=== PATIENT | female | born 1955 | race Hispanic/Latino ===

== ENCOUNTER → 2019-08-04 | Day surgery (SDC) | payer MEDICARE, OTHER ==
[2019-07-31 10:41] LABS: INR 1.26; PROTHROMBIN TIME 16.6 seconds (11.9-14.5)
[~2019-08-04] MED LIST: DEXTROSE 5% 250ML 250 ML IV ONE; FENTANYL CITRATE/PF 100MCG/2 ML INJ ONE; FUROSEMIDE40 MG PO; GLIPIZIDE5 MG PO; HYDROMORPHONE 1MG/1ML INJ ONE; HYDROMORPHONE 2MG/ML 2 MG/ML ML ONE; LACTULOSE20 GM/30 M PO; LANTUS 3ML100 UNITS/ SQ; LEVOTHYROXINE50 MCG PO; LIDOCAINE HCL 2% LOCAL INJ 5 ML SDV VIAL INJ ONE; PANTOPRAZOLE 40 MG 10ML VIAL ONE; PROPOFOL IV EMULSION 10 MG/ML 20 ML VIAL ONE; SPIRONOLACTONE25 MG PO
--- OUTSIDE RECORDS SUMMARY | 2019-08-04 10:31 | XMS REPORT ---
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
--- OUTSIDE RECORDS SUMMARY | 2019-08-04 10:31 | XMS REPORT ---
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
--- OUTSIDE RECORDS SUMMARY | 2019-08-04 10:31 | XMS REPORT | Continuity of Care Document ---
Author Author [facility] [employer] [employer], SUZI REYNOLDS [facility] [employer] [employer] Address Unknown Phone Unavailable Care Team Providers Care Senior Linux Systems Administrator Name Role Phone [employer] [employer] Unavailable Un available Problems Problem Status Onset Date Classification Date Reported Comments Source Acquired hypothyroidism Active Problem 07/23/2019 [facility] Menopausal and postmenopausal disorder Active Problem [facility] Type 2 diabetes mellitus with other diab etic ophthalmic complication Active Prob alen 07/23/2019 [facility] Essential hypertension Active Problem 07/23/2019 [facility] Other ascites Active Problem 07/23/2019 [facility] alf (current) use of insulin Active Problem [facility] Unspecified cirrhosis of liver Active Problem [facility] Age-related osteoporosis without current pathological fracture Active Prob alen 07/23/2019 [facility] Medications Medication Details Route Status Patient Instructions Ordering Provider Order Date Source Spironolactone 1 tablet Orally Active 100 MG Orally Once a da y Ghebranious 08/20/2019 [facility] GlipiZIDE 1 tablet 30 minutes before breakfast Orally Active 10 MG Orally Once a day Ghebranious [facility] Allergies, Adverse Reactions, Alerts No Known Medication Allergies Immunizations No Data Provided for This Section Results No Data Provided for This Section Pathology Reports No Data Provided for This Section Diagnostic Reports No Data Provided for This Section Consultation Notes No Data Provided for This Section Discharge Summaries No Data Provided for This Section History and Physicals No Data Provided for This Section Vital Signs No Data Provided for This Section Encounters No Data Provided for This Section Procedures No Data Provided for This Section Assessment and Plan No Data Provided for This Section Plan of Care No Data Provided for This Section Social History No Data Provided for This Section Family History No Data Provided for This Section Advance Directives No Data Provided for This Section Functional Status No Data Provided for This Section
[2019-08-04 12:33] LABS: BASOPHILS % 0.6 % (0.0-1.0); EOSINOPHILS # (AUTO) 0.1 (0.0-0.4); EOSINOPHILS % 1.9 % (0.0-6.0); HEMATOCRIT 37.1 % (34.2-44.1); LYMPHOCYTES # (AUTO) 0.7 (1.0-3.2); LYMPHOCYTES % 13.9 % (18.0-39.1); MEAN CORPUSCULAR HEMOGLOBIN 30.9 pg (28-32); MEAN CORPUSCULAR HGB CONC 32.3 g/dL (31-35); MEAN CORPUSCULAR VOLUME 95.6 fL (81-99); MONOCYTES # (AUTO) 0.7 (0.2-0.8); MONOCYTES % 13.9 % (4.4-11.3); NEUTROPHILS # (AUTO) 3.4 (2.1-6.9); NEUTROPHILS % 69.3 % (38.7-80.0); PLATELET COUNT 85 x10e3/uL (140-360); RED BLOOD COUNT 3.88 x10e6/uL (3.6-5.1); RED CELL DISTRIBUTION WIDTH 15.3 % (11.7-14.4)
--- NOTE | 2019-08-04 13:18 | Operative Report ---
DATE OF PROCEDURE: 08/04/2019 SURGEON: Lenin Lowe MD PROCEDURE: An EGD with banding. INDICATIONS FOR EGD: 1. Upper abdominal pain, bloating. 2. History of esophageal varices. MEDICATIONS: The patient was done under MAC. Please see anesthesiologist's note. PROCEDURE IN DETAIL: With the patient in the left lateral decubitus position, a flexible fiberoptic Olympus gastroscope was introduced into the esophagus under direct visualization without any difficulty. Grade 2 to 3 esophageal varices were noted in the distal esophagus and some with red andreafski. The scope was then advanced with ease into the stomach. Mucosa overlying the antrum and the body revealed changes of diffuse portal hypertensive gastropathy. The pylorus was of normal contour and shape. It was intubated with ease and the scope was advanced all the way to the second portion of the duodenum. The scope was then withdrawn slowly. Mucosa overlying the proximal second portion and the duodenal bulb appeared to be within normal limits. The scope was then withdrawn back into the stomach and retroflexed. Mucosa overlying the fundus and the cardia grossly appeared to be within normal limits. The scope was then straightened out. It was subsequently withdrawn. The scope was then fitted for banding and hemorrhoids reintroduced into the esophagus. Five bands were applied to 3 columns of varices. The scope was subsequently withdrawn. The patient tolerated procedure well. IMPRESSION: 1. Grade 2 to 3 esophageal varices, some with red andreafski. Five bands were applied to 3 columns of varices with good hemostasis. 2. Portal hypertensive gastropathy. PLAN: Follow up H and H. Initiate Protonix 40 mg one p.o. q.a.m. a.c. Lenin Lowe MD [facility] [place]/MODL /[id number] cc: Cady Pierre MD
[2019-08-04 15:10] VITALS: BP 143/73
[2019-08-04 20:36] LABS: BODY FLUID APPEARANCE SL.CLOUDY; BODY FLUID COLOR YELLOW; BODY FLUID TYPE PERITONEAL
[2019-08-04 20:37] LABS: RBC,BODY FLUID 293 cells/uL; WBC,BODY FLUID 136 cells/uL
[2019-08-04 21:27] LABS: LYMPHOCYTES,BODY FLUID 48 %; MONO/MACROPHG,BODY FLUID 33 %; NEUTROPHILS,BODY FLUID 8 %; OTHER CELLS,BODY FLUID 11 %
--- NOTE | 2019-08-05 09:37 | Diagnostic Imaging Report ---
TECHNIQUE: CT of the abdomen and pelvis WITHOUT intravenous contrast and WITHOUT oral contrast. Dose modulation, iterative reconstruction, and/or weight-based adjustment of the mA/kV was utilized to reduce the radiation dose to as low as reasonably achievable. INDICATION: 64-year-old woman with abdominal pain after EGD. COMPARISON: None. FINDINGS: ABSENCE OF INTRAVENOUS CONTRAST DECREASES SENSITIVITY FOR DETECTION OF FOCAL LESIONS AND VASCULAR PATHOLOGY. LOWER THORAX: Mild dependent atelectasis in both lower lobes. Atherosclerotic coronary artery calcifications. HEPATOBILIARY: Cirrhotic morphology of the liver. No definite focal hepatic lesions. Cholelithiasis with nonspecific distention of the gallbladder up to 4.6 cm in transverse dimension. No biliary ductal dilatation. SPLEEN: Spleen is prominent and measures 13.2 cm in the craniocaudal dimension. PANCREAS: No focal masses or ductal dilatation. ADRENALS: No adrenal nodules. KIDNEYS/URETERS: No hydronephrosis, stones, or solid mass lesions. PELVIC ORGANS/BLADDER: 2 x 3.2 cm soft tissue structure in the left adnexum abuts the left uterine body. Bladder is unremarkable. PERITONEUM/RETROPERITONEUM: Large volume ascites. No free air. LYMPH NODES: No lymphadenopathy. VESSELS: Atherosclerotic vascular calcifications in the abdominal aorta and bilateral iliac arteries without aneurysm. GI TRACT: Apparent mildly thickened wall of the stomach. No bowel obstruction. Normal appendix. BONES AND SOFT TISSUES: Mild degenerative changes of the visualized spine. Periumbilical ventral hernia contains a nonstrangulated loop of small bowel and ascitic fluid. Large left inguinal hernia contains ascitic fluid. IMPRESSION: Cirrhosis with portal hypertension and large volume ascites. Apparent mildly thickened wall of the stomach may be due to underdistention, portal gastropathy, or gastritis. This finding may be correlated with the recently performed EGD. Cholelithiasis with nonspecific distention of the gallbladder. 3.2 cm soft tissue structure in the left adnexum. Differential considerations include subserosal uterine fibroid and asymmetrically prominent left ovary. Nonemergent pelvis ultrasound may be obtained for further evaluation. Signed by: Berry Epstein MD on 08/05/2019 9:32 AM
--- NOTE | 2019-08-05 10:59 | Diagnostic Imaging Report ---
Procedure: Ultrasound-guided paracentesis teasel gig operator: Nelson Saucedo MD Pre-operative diagnosis: Ascites Post-operative diagnosis: Ascites Conscious Sedation: None. The patient's heart rate and pulse oximetry were continuously monitored by the IR nurse. Additional Medications: Lidocaine 1% for local anesthesia Estimated blood loss: Less than 1 cc. Specimen: 5400 cc of material yellow fluid Implants: None TECHNIQUE/FINDINGS: Informed consent was obtained from the patient and documented in the medical record. The patient was placed in the supine position. Initial ultrasound demonstrated ascites. The right lower abdomen was prepped and draped in standard sterile fashion. 1% lidocaine was infiltrated into the skin and subcutaneous tissues for local anesthesia. Then under continuous sonographic guidance, a 5 Fr catheter was advanced into the peritoneal space. The catheter was connected to vacuum bottle with subsequent evacuation of 5400 cc of serous fluid. The catheter was removed and sterile dressing was applied. Sample was sent to the lab. The patient tolerated the procedure well. IMPRESSION: Successful ultrasound-guided paracentesis. Signed by: Deven Grande MD on 08/05/2019 10:55 AM
== END | disposition home or self-care (01) ==
LOC: OR 10:28
PROVIDERS: ATTEND Internal Medicine Gastroenterology
DX: K74.60 Unspecified cirrhosis of liver (principal); I85.10 Secondary esophageal varices without bleeding; K21.0 Gastro-esophageal reflux disease with esophagitis; R18.8 Other ascites; K76.6 Portal hypertension; K31.89 Other diseases of stomach and duodenum; B18.2 Chronic viral hepatitis C; K40.90 Unilateral inguinal hernia, without obstruction or gangrene, not specified as recurrent; E11.9 Type 2 diabetes mellitus without complications; E03.9 Hypothyroidism, unspecified; R03.0 Elevated blood-pressure reading, without diagnosis of hypertension; F17.210 Nicotine dependence, cigarettes, uncomplicated; Z01.810 Encounter for preprocedural cardiovascular examination; Z01.812 Encounter for preprocedural laboratory examination; Z11.59 Encounter for screening for other viral diseases; Z79.84 Long term (current) use of oral hypoglycemic drugs; Z79.4 Long term (current) use of insulin
CPT/HCPCS: 36415 ×2; 43244; 49083; 74176; 74470; 82948; 85025; 85610; 85730; 87070; 87205; 87635; 88112; 88305; 89051; 93005; C1729; C9113; J1170 ×2; J2001; J2704; J3010; J7070; 43239

== ENCOUNTER → 2019-08-13 | Outpatient (CLI) | payer MEDICARE ==
[~2019-08-13] MED LIST changes: -DEXTROSE 5% 250ML 250 ML IV ONE; -FENTANYL CITRATE/PF 100MCG/2 ML INJ ONE; -HYDROMORPHONE 1MG/1ML INJ ONE; -HYDROMORPHONE 2MG/ML 2 MG/ML ML ONE; -LIDOCAINE HCL 2% LOCAL INJ 5 ML SDV VIAL INJ ONE; -PANTOPRAZOLE 40 MG 10ML VIAL ONE; -PROPOFOL IV EMULSION 10 MG/ML 20 ML VIAL ONE
--- NOTE | 2019-08-13 10:57 | Diagnostic Imaging Report ---
Ultrasound female pelvis Clinical diagnosis: Left adnexal mass suspected on a recent abdominal CT. Last menstrual period: Not applicable. The patient is postmenopausal. The patient is a 0. The patient is not on normal replacement therapy. There is no history of prior pelvic surgery. Comparison: CT dated 08/04/2019. Technique: Multiple transaxial and longitudinal images were obtained through the pelvis. Low MHz transducer(s) was(were) utilized transabdominally and endovaginally. Color Doppler and spectral waveform analysis images were submitted to evaluate for blood flow. Multiple images were submitted for interpretation. Report: Uterus: 4.4 x 2.3 x 3.6 cm with heterogeneous echotexture and calcifications suggestive of degenerated fibroids. Right Ovary: Not visualized Left Ovary: Not visualized Free Fluid: Large volume ascites. The left adnexal mass as seen on CT is not visualized on this exam. Impression: Limited exam due to presence of large volume ascites and free floating loops of bowel. The left adnexal mass as seen on the CT is not visualized on this exam. If there is a persistent concern, MRI of the pelvis may be performed. Signed by: Santiago Diez MD on 08/13/2019 10:54 AM
== END ==
LOC: US 09:43
PROVIDERS: ATTEND Internal Medicine Gastroenterology
DX: R93.89 Abnormal findings on diagnostic imaging of other specified body structures (principal)
CPT/HCPCS: 76830; 76856

== ENCOUNTER → 2019-09-01 | Outpatient (CLI) | payer MEDICARE ==
[2019-09-01 14:31] LABS: PARTIAL THROMBOPLASTIN TIME 33.4 seconds (23.8-35.5)
[2019-09-01 14:50] LABS: INR 1.1; PROTHROMBIN TIME 14.9 seconds (11.9-14.5)
--- NOTE | 2019-09-01 15:55 | Diagnostic Imaging Report ---
Procedure: Ultrasound-guided paracentesis brick setter operator: Tripp Goldman M.D. Pre-operative diagnosis: Ascites Post-operative diagnosis: Ascites Conscious Sedation: None. The patient's heart rate and pulse oximetry were continuously monitored by the IR nurse. Additional Medications: Lidocaine 1% for local anesthesia Estimated blood loss: Less than 1 cc. Specimen: 4600 cc of clear yellow fluid Implants: None TECHNIQUE/FINDINGS: Informed consent was obtained from the patient and documented in the medical record. The patient was placed in the supine position. Initial ultrasound demonstrated ascites. The right lower abdomen was prepped and draped in standard sterile fashion. 1% lidocaine was infiltrated into the skin and subcutaneous tissues for local anesthesia. Then under continuous sonographic guidance, a 5 Fr catheter was advanced into the peritoneal space. The catheter was connected to vacuum bottle with subsequent evacuation of 4600 cc of serous fluid. The catheter was removed and sterile dressing was applied. Sample was sent to the lab. The patient tolerated the procedure well. IMPRESSION: Successful ultrasound-guided paracentesis. Signed by: Tripp Goldman on 09/01/2019 3:51 PM
[2019-09-01 16:29] LABS: BODY FLUID TYPE PERITONEAL
[2019-09-01 16:30] LABS: BODY FLUID APPEARANCE CLOUDY; BODY FLUID COLOR YELLOW
[2019-09-01 17:21] LABS: AMYLASE,BODY FLUID 15
[2019-09-01 17:22] LABS: GLUCOSE,BODY FLUID 178 mg/dL
[2019-09-01 18:49] LABS: RBC,BODY FLUID 174 cells/uL; WBC,BODY FLUID 22 cells/uL
[2019-09-01 20:38] LABS: LYMPHOCYTES,BODY FLUID 26 %; MONO/MACROPHG,BODY FLUID 32 %; NEUTROPHILS,BODY FLUID 12 %; OTHER CELLS,BODY FLUID 30 %
== END ==
LOC: US 13:46
PROVIDERS: ATTEND Internal Medicine Gastroenterology
DX: K72.90 Hepatic failure, unspecified without coma (principal); R18.8 Other ascites; B18.2 Chronic viral hepatitis C
CPT/HCPCS: 36415; 49083; 82040; 82150; 82248; 82945; 83615; 83690; 83986; 84157; 84478; 85014; 85049; 85610; 85730; 87070; 87116; 87205; 87206; 88112; 88305; 89051; C1729

== ENCOUNTER → 2019-09-16 | Outpatient (CLI) | payer OTHER ==
[~2019-09-16] MED LIST changes: +ALBUMIN 25% 12.5GM 50ML 200 ML IV ONE
--- NOTE | 2019-09-16 12:55 | Diagnostic Imaging Report ---
Procedure: Ultrasound-guided paracentesis furnace charging machine operator: Nelson Saucedo MD Pre-operative diagnosis: Ascites Post-operative diagnosis: Ascites Conscious Sedation: None. The patient's heart rate and pulse oximetry were continuously monitored by the IR nurse. Additional Medications: Lidocaine 1% for local anesthesia Estimated blood loss: Less than 1 cc. Specimen: 3950 cc of clear yellow fluid Implants: None TECHNIQUE/FINDINGS: Informed consent was obtained from the patient and documented in the medical record. The patient was placed in the supine position. Initial ultrasound demonstrated ascites. The right lower abdomen was prepped and draped in standard sterile fashion. 1% lidocaine was infiltrated into the skin and subcutaneous tissues for local anesthesia. Then under continuous sonographic guidance, a 5 Fr catheter was advanced into the peritoneal space. The catheter was connected to vacuum bottle with subsequent evacuation of 3950 cc of serous fluid. The catheter was removed and sterile dressing was applied. The patient tolerated the procedure well. IMPRESSION: Successful ultrasound-guided paracentesis. Signed by: Dr. Nelson Saucedo MD on 09/16/2019 12:51 PM
[2019-09-16 15:47] LABS: BODY FLUID APPEARANCE CLOUDY; BODY FLUID COLOR YELLOW; BODY FLUID TYPE PERITONEAL
[2019-09-16 18:45] LABS: RBC,BODY FLUID 158 cells/uL; WBC,BODY FLUID 13 cells/uL
[2019-09-16 19:12] LABS: LYMPHOCYTES,BODY FLUID 45 %; MONO/MACROPHG,BODY FLUID 45 %; NEUTROPHILS,BODY FLUID 10 %
== END ==
LOC: US 11:45
PROVIDERS: ATTEND Legal Medicine
DX: R18.8 Other ascites (principal); K74.60 Unspecified cirrhosis of liver
CPT/HCPCS: 36415; 49083; 88112; 88305; 89051; C1729

== ENCOUNTER → 2019-09-30 | Outpatient (CLI) | payer OTHER ==
--- NOTE | 2019-09-30 15:31 | Diagnostic Imaging Report ---
PROCEDURE: Ultrasound-guided paracentesis Procedural Personnel Attending physician(s): Deven Grande MD Pre-procedure diagnosis: Ascites Post-procedure diagnosis: Unchanged Indication: Ascites with pain or pressure symptoms Additional clinical history: None Complications: No immediate complications. IMPRESSION: Ultrasound-guided paracentesis with drainage of 5850 mL of serous fluid. Plan: Resume care by clinical team. PROCEDURE SUMMARY: - Limited abdominal ultrasound - Ultrasound-guided paracentesis - Additional procedure(s): None PROCEDURE DETAILS: Pre-procedure Consent: Informed consent for the procedure including risks, benefits and alternatives was obtained and time-out was performed prior to the procedure. Preparation: The site was prepared and draped using maximal sterile barrier technique including cutaneous antisepsis. Anesthesia/sedation Level of anesthesia/sedation: None Initial abdominal ultrasound Initial abdominal ultrasound was performed. Findings: Large ascites. A safe window for paracentesis was identified. Paracentesis Local anesthesia was administered. The peritoneal cavity was accessed and fluid return confirmed position. Ascites was drained. The catheter was then removed, and a sterile bandage was applied. Paracentesis access technique: Real-time ultrasound guidance. Catheter placed: 5Fr Yueh Post-drainage ultrasound: No visible ascites Additional Details Additional description of procedure: None Equipment details: None Specimens removed: Abdominal fluid Estimated blood loss (mL): Minimal (<10cc) Standardized report: [email or web address] Attestation Signer name: Deven Grande MD I attest that I was present for the entire procedure. I reviewed the stored images and agree with the report as written. Signed by: Deven Grande MD on 09/30/2019 3:28 PM
[2019-09-30 16:29] LABS: BODY FLUID APPEARANCE CLEAR; BODY FLUID COLOR YELLOW; BODY FLUID TYPE PERITONEAL; RBC,BODY FLUID 232 cells/uL; WBC,BODY FLUID 144 cells/uL
[2019-09-30 16:39] LABS: LYMPHOCYTES,BODY FLUID 51 %; MONO/MACROPHG,BODY FLUID 15 %; NEUTROPHILS,BODY FLUID 4 %; OTHER CELLS,BODY FLUID 30 %
== END ==
LOC: US 12:58
PROVIDERS: ATTEND Legal Medicine
DX: R18.8 Other ascites (principal)
CPT/HCPCS: 36415; 49083; 88112; 88305; 89051

== ENCOUNTER → 2019-10-19 | Outpatient (CLI) | payer MEDICARE, OTHER ==
[2019-10-19 13:24] LABS: HEMATOCRIT 33.4 % (34.2-44.1); HEMOGLOBIN 10.7 g/dL (12.0-16.0); MEAN CORPUSCULAR HEMOGLOBIN 32.1 pg (28-32); MEAN CORPUSCULAR VOLUME 100.3 fL (81-99); RED BLOOD COUNT 3.33 x10e6/uL (3.6-5.1); RED CELL DISTRIBUTION WIDTH 15.5 % (11.7-14.4)
[2019-10-19 13:30] LABS: PLATELET COUNT 87 x10e3/uL (140-360)
[2019-10-19 13:57] LABS: INR 1.32; PROTHROMBIN TIME 17.1 seconds (11.9-14.5)
[2019-10-19 13:58] LABS: PARTIAL THROMBOPLASTIN TIME 37.1 seconds (23.8-35.5)
[2019-10-19 14:16] LABS: HYPOCHROMASIA SLIG; LYMPHOCYTES % (MANUAL) 19 % (19-48); MONOCYTES % (MANUAL) 5 % (3.4-9.0); NEUTROPHILS % (MANUAL) 76 % (40-74); POLYCHROMASIA FEW
[2019-10-19 14:17] LABS: PLATELET ESTIMATE MODERATELY DECREASED; PLATELET MORPHOLOGY COMMENT FEW LARGE; RBC MORPHOLOGY COMMENT NORMAL
--- NOTE | 2019-10-19 15:11 | Diagnostic Imaging Report ---
PROCEDURE: Ultrasound-guided paracentesis Procedural Personnel Attending physician(s): Deven Grande MD Pre-procedure diagnosis: Ascites Post-procedure diagnosis: Unchanged Indication: Ascites with pain or pressure symptoms Additional clinical history: None Complications: No immediate complications. IMPRESSION: Ultrasound-guided paracentesis with drainage of 5050 mL of serous fluid. Plan: Resume care by clinical team. PROCEDURE SUMMARY: - Limited abdominal ultrasound - Ultrasound-guided paracentesis - Additional procedure(s): None PROCEDURE DETAILS: Pre-procedure Consent: Informed consent for the procedure including risks, benefits and alternatives was obtained and time-out was performed prior to the procedure. Preparation: The site was prepared and draped using maximal sterile barrier technique including cutaneous antisepsis. Anesthesia/sedation Level of anesthesia/sedation: None Initial abdominal ultrasound Initial abdominal ultrasound was performed. Findings: Large ascites. A safe window for paracentesis was identified. Paracentesis Local anesthesia was administered. The peritoneal cavity was accessed and fluid return confirmed position. Ascites was drained. The catheter was then removed, and a sterile bandage was applied. Paracentesis access technique: Real-time ultrasound guidance. Catheter placed: 5Fr Yueh Post-drainage ultrasound: No visible ascites Additional Details Additional description of procedure: None Equipment details: None Specimens removed: Abdominal fluid Estimated blood loss (mL): Minimal (<10cc) Standardized report: [email or web address] Attestation Signer name: Deven Grande MD I attest that I was present for the entire procedure. I reviewed the stored images and agree with the report as written. Signed by: Deven Grande MD on 10/19/2019 3:08 PM
[2019-10-19 16:04] LABS: BODY FLUID APPEARANCE SL.CLOUDY; BODY FLUID COLOR YELLOW; BODY FLUID TYPE PERITONEAL
[2019-10-19 16:48] LABS: RBC,BODY FLUID 56 cells/uL; WBC,BODY FLUID 24 cells/uL
[2019-10-19 18:27] LABS: LYMPHOCYTES,BODY FLUID 66 %; MONO/MACROPHG,BODY FLUID 26 %; NEUTROPHILS,BODY FLUID 8 %
== END ==
LOC: US 12:45
PROVIDERS: ATTEND Legal Medicine
DX: R18.8 Other ascites (principal)
CPT/HCPCS: 36415; 49083; 85007; 85027; 85610; 85730; 88112; 88305; 89051

== ENCOUNTER → 2019-10-26 | Outpatient (CLI) | payer OTHER ==
--- NOTE | 2019-10-26 14:06 | Diagnostic Imaging Report ---
PROCEDURE: Ultrasound-guided paracentesis Procedural Personnel Attending physician(s): Deven Grande MD Pre-procedure diagnosis: Ascites Post-procedure diagnosis: Unchanged Indication: Ascites with pain or pressure symptoms Additional clinical history: None Complications: No immediate complications. IMPRESSION: Ultrasound-guided paracentesis with drainage of 5300 mL of serous fluid. Plan: Resume care by clinical team. PROCEDURE SUMMARY: - Limited abdominal ultrasound - Ultrasound-guided paracentesis - Additional procedure(s): None PROCEDURE DETAILS: Pre-procedure Consent: Informed consent for the procedure including risks, benefits and alternatives was obtained and time-out was performed prior to the procedure. Preparation: The site was prepared and draped using maximal sterile barrier technique including cutaneous antisepsis. Anesthesia/sedation Level of anesthesia/sedation: None Initial abdominal ultrasound Initial abdominal ultrasound was performed. Findings: Large ascites. A safe window for paracentesis was identified. Paracentesis Local anesthesia was administered. The peritoneal cavity was accessed and fluid return confirmed position. Ascites was drained. The catheter was then removed, and a sterile bandage was applied. Paracentesis access technique: Real-time ultrasound guidance. Catheter placed: 5Fr Yueh Post-drainage ultrasound: No visible ascites Additional Details Additional description of procedure: None Equipment details: None Specimens removed: Abdominal fluid Estimated blood loss (mL): Minimal (<10cc) Standardized report: [email or web address] Attestation Signer name: Deven Gradne MD I attest that I was present for the entire procedure. I reviewed the stored images and agree with the report as written. Signed by: Deven Grande MD on 10/26/2019 2:03 PM
[2019-10-26 14:56] LABS: BODY FLUID APPEARANCE SL.CLOUDY; BODY FLUID COLOR STRAW; BODY FLUID TYPE PERITONEAL
[2019-10-26 16:05] LABS: RBC,BODY FLUID 90 cells/uL; WBC,BODY FLUID 14 cells/uL
[2019-10-26 16:37] LABS: LYMPHOCYTES,BODY FLUID 11 %; MONO/MACROPHG,BODY FLUID 80 %; NEUTROPHILS,BODY FLUID 5 %; OTHER CELLS,BODY FLUID 4 %
== END ==
LOC: US 12:30
PROVIDERS: ATTEND Legal Medicine
DX: R18.8 Other ascites (principal)
CPT/HCPCS: 36415; 49083; 88112; 89051

== ENCOUNTER → 2019-11-02 | Outpatient (CLI) | payer OTHER ==
[2019-11-02 15:16] LABS: BODY FLUID APPEARANCE TURBID; BODY FLUID COLOR YELLOW; BODY FLUID TYPE PERITONEAL; RBC,BODY FLUID 252 cells/uL; WBC,BODY FLUID 317 cells/uL
[2019-11-02 15:41] LABS: EOSINOPHILS,BODY FLUID 2 %; LYMPHOCYTES,BODY FLUID 4 %; MONO/MACROPHG,BODY FLUID 28 %; NEUTROPHILS,BODY FLUID 66 %
--- NOTE | 2019-11-02 16:03 | Diagnostic Imaging Report ---
PROCEDURE: Ultrasound-guided paracentesis Procedural Personnel Attending physician(s): Deven Grande MD Pre-procedure diagnosis: Ascites Post-procedure diagnosis: Unchanged Indication: Ascites with pain or pressure symptoms Additional clinical history: None Complications: No immediate complications. IMPRESSION: Ultrasound-guided paracentesis with drainage of 3300 mL of serous fluid. Plan: Resume care by clinical team. PROCEDURE SUMMARY: - Limited abdominal ultrasound - Ultrasound-guided paracentesis - Additional procedure(s): None PROCEDURE DETAILS: Pre-procedure Consent: Informed consent for the procedure including risks, benefits and alternatives was obtained and time-out was performed prior to the procedure. Preparation: The site was prepared and draped using maximal sterile barrier technique including cutaneous antisepsis. Anesthesia/sedation Level of anesthesia/sedation: None Initial abdominal ultrasound Initial abdominal ultrasound was performed. Findings: Large ascites. A safe window for paracentesis was identified. Paracentesis Local anesthesia was administered. The peritoneal cavity was accessed and fluid return confirmed position. Ascites was drained. The catheter was then removed, and a sterile bandage was applied. Paracentesis access technique: Real-time ultrasound guidance. Catheter placed: 5Fr Yueh Post-drainage ultrasound: No visible ascites Additional Details Additional description of procedure: None Equipment details: None Specimens removed: Abdominal fluid Estimated blood loss (mL): Minimal (<10cc) Standardized report: [email or web address] Attestation Signer name: Deven Grande MD I attest that I was present for the entire procedure. I reviewed the stored images and agree with the report as written. Signed by: Deven Grande MD on 11/02/2019 3:59 PM
== END ==
LOC: US 12:38
PROVIDERS: ATTEND Legal Medicine
DX: R18.8 Other ascites (principal)
CPT/HCPCS: 36415; 49083; 89051

== ENCOUNTER → 2019-11-09 | Outpatient (CLI) | payer OTHER ==
--- NOTE | 2019-11-09 14:53 | Diagnostic Imaging Report ---
Abdominal Ultrasound limited. Clinical Diagnosis: Ascites Comparison: None Technique: Multiple transaxial and longitudinal images were obtained through the abdomen with real time ultrasonography. A low-frequency curvilinear transducer was utilized. Multiple images were submitted for interpretation. Report: Please see impression. Impression: Sonographic evaluation different quadrants of the abdomen revealed a scant amount of ascites. Paracentesis was therefore not performed on patient's request. Signed by: Santiago Diez MD on 11/09/2019 2:50 PM
== END ==
LOC: US 12:12
PROVIDERS: ATTEND Legal Medicine
DX: R18.8 Other ascites (principal)
CPT/HCPCS: 76705

== ENCOUNTER → 2019-11-16 | Outpatient (CLI) | payer OTHER ==
[~2019-11-16] MED LIST changes: +ALBUMIN 25% 12.5GM 50ML 100 ML IV ONE; -ALBUMIN 25% 12.5GM 50ML 200 ML IV ONE
--- NOTE | 2019-11-16 14:31 | Diagnostic Imaging Report ---
HISTORY : Symptomatic ascites. Technique/findings: Informed written consent was obtained. Discussion of risks, benefits, and alternatives were made with the patient. The patient expressed understanding and agreed to proceed. A universal timeout was performed prior to starting the procedure. Initial ultrasound images demonstrate moderate volume of ascites. A pocket of fluid was identified in the left lower quadrant of the abdomen. This area was marked. The area was prepped and draped in the usual sterile fashion. 1% lidocaine was applied to the skin and deep soft tissues. Color ultrasound was used to assess for any vessels within the vicinity of the planned trajectory of the one-step, a image was saved. A 5 Croatian one-step catheter was inserted and removed from the peritoneal space and approximately 3.1 liters of clear yellow ascitic fluid was aspirated from the abdomen. There were no immediate complications. Impression: Successful ultrasound guided paracentesis with aspiration of 3.1 liters of fluid. Signed by: Laith Mcneil MD on 11/16/2019 2:28 PM
[2019-11-16 15:03] LABS: BODY FLUID APPEARANCE CLOUDY; BODY FLUID COLOR YELLOW; BODY FLUID TYPE PERITONEAL; RBC,BODY FLUID 139 cells/uL; WBC,BODY FLUID 16 cells/uL
[2019-11-16 15:45] LABS: LYMPHOCYTES,BODY FLUID 14 %; MONO/MACROPHG,BODY FLUID 63 %; NEUTROPHILS,BODY FLUID 7 %; OTHER CELLS,BODY FLUID 16 %
--- NOTE | 2019-11-17 10:57 | NUR ---
called pt for followup after paracentesis. brother in law states pt is doing fine
== END ==
LOC: US 12:24
PROVIDERS: ATTEND Legal Medicine
DX: R18.8 Other ascites (principal)
CPT/HCPCS: 36415; 49083; 89051

== ENCOUNTER → 2019-12-07 | Outpatient (CLI) | payer OTHER ==
[2019-12-07 13:17] LABS: BASOPHILS % 0.4 % (0.0-1.0); EOSINOPHILS # (AUTO) 0.1 (0.0-0.4); EOSINOPHILS % 2.2 % (0.0-6.0); HEMATOCRIT 31.9 % (34.2-44.1); HEMOGLOBIN 10.1 g/dL (12.0-16.0); LYMPHOCYTES # (AUTO) 0.5 (1.0-3.2); LYMPHOCYTES % 10.8 % (18.0-39.1); MEAN CORPUSCULAR HEMOGLOBIN 31.1 pg (28-32); MEAN CORPUSCULAR HGB CONC 31.7 g/dL (31-35); MEAN CORPUSCULAR VOLUME 98.2 fL (81-99); MONOCYTES # (AUTO) 0.4 (0.2-0.8); MONOCYTES % 8.2 % (4.4-11.3); NEUTROPHILS # (AUTO) 3.9 (2.1-6.9); NEUTROPHILS % 77.8 % (38.7-80.0); PLATELET COUNT 98 x10e3/uL (140-360); RED BLOOD COUNT 3.25 x10e6/uL (3.6-5.1)
[2019-12-07 13:30] LABS: INR 1.31; PROTHROMBIN TIME 16.9 seconds (11.9-14.5)
[2019-12-07 13:31] LABS: PARTIAL THROMBOPLASTIN TIME 34.5 seconds (23.8-35.5)
--- NOTE | 2019-12-07 15:33 | Diagnostic Imaging Report ---
HISTORY : Symptomatic ascites. Technique/findings: Informed written consent was obtained. Discussion of risks, benefits, and alternatives were made with the patient. The patient expressed understanding and agreed to proceed. A universal timeout was performed prior to starting the procedure. Initial ultrasound images demonstrate moderate volume of ascites. A pocket of fluid was identified in the left lower quadrant of the abdomen. This area was marked. The area was prepped and draped in the usual sterile fashion. 1% lidocaine was applied to the skin and deep soft tissues. Color ultrasound was used to assess for any vessels within the vicinity of the planned trajectory of the one-step, a image was saved. A 5 English one-step catheter was inserted and removed from the peritoneal space and approximately 4.05 liters of clear yellow ascitic fluid was aspirated from the abdomen. Specimens were collected for the lab. There were no immediate complications. Impression: Successful ultrasound guided paracentesis with aspiration of 4.05 liters of fluid. Signed by: Laith Mcneil MD on 12/07/2019 3:30 PM
[2019-12-07 16:07] LABS: BODY FLUID APPEARANCE SL.CLOUDY; BODY FLUID COLOR YELLOW; BODY FLUID TYPE PERITONEAL; RBC,BODY FLUID 86 cells/uL; WBC,BODY FLUID 70 cells/uL
[2019-12-07 16:45] LABS: LYMPHOCYTES,BODY FLUID 55 %; MONO/MACROPHG,BODY FLUID 17 %; NEUTROPHILS,BODY FLUID 28 %
== END ==
LOC: US 12:51
PROVIDERS: ATTEND Legal Medicine
DX: R18.8 Other ascites (principal)
CPT/HCPCS: 36415; 49083; 85025; 85610; 85730; 89051

== ENCOUNTER → 2019-12-17 | Outpatient (CLI) | payer OTHER ==
[~2019-12-17] MED LIST changes: -ALBUMIN 25% 12.5GM 50ML 100 ML IV ONE
--- NOTE | 2019-12-17 14:01 | Diagnostic Imaging Report ---
EXAM: US ABDOMEN LIMITED DATE: 12/17/2019 1:05 PM INDICATION: ^ASCITIES COMPARISON: None TECHNIQUE: Transverse and longitudinal oliva scale and color doppler sonographic images of the 4 quadrants were obtained. FINDINGS: Only a small amount of fluid is noted within the 4 quadrants, not significant enough for large volume paracentesis. Patient was in agreement and would return once the fluid has increased. IMPRESSION: Limited four-quadrant ultrasound demonstrates only a small amount of ascites, not and not for safe or efficacious paracentesis. Patient will return for large volume paracentesis. Signed by: Laith Mcneil MD on 12/17/2019 1:58 PM
== END ==
LOC: US 12:30
PROVIDERS: ATTEND Legal Medicine
DX: R18.8 Other ascites (principal)
CPT/HCPCS: 36415; 76705; 82948

== ENCOUNTER 2019-12-31 14:09 | Emergency (ER) | payer MEDICARE ==
[~2019-12-31] VITALS: Ht 149.9 cm; Wt 47.6 kg
--- NOTE | 2019-12-31 15:01 | Emergency Department Note ---
History of Present Illnes History of Present Illness Chief Complaint: Extremity Trauma/Pain History of Present Illness This is a 64 year old female Chief Complaint Comment Patient in from home with complaints of right lower extremity pain and swelling that has been going on for a number of weeks. Patient reports that she was inpatient at [facility] in late November and the leg was swollen then but nothing was done. Patient was here in this hospital today for a paracentesis and the leg was noted to be swollen so she was brought to the ER for evaluation. The patient's right lower extremity is swollen with a slight red discoloration distally and is extremely tender to palpation from ankle to waist. Patient has a history of hepatitis and liver disease. Historian: Patient Arrival Mode: Car Recep Required: No Onset (how long ago): month(s) Location: RLE Quality: swelling Radiation: Reports non-radiation Severity: moderate Onset quality: gradual Duration (how long): month(s) Timing of current episode: constant Progression: unchanged Chronicity: chronic Context: Denies recent illness, Denies recent surgery Relieving factors: none Exacerbating factors: none Associated symptoms: Reports denies other symptoms Treatments prior to arrival: none Past Medical/Family History Physician Review I have reviewed the patient's past medical and family history. Any updates have been documented here. Past Medical History Recent Fever: No Clinical Suspicion of Infectio: No New/Unexplained Change in Ment: No Past Medical History: Diabetes, Hepatitis C, Liver Disease Other Medical History: multiple hernias Past Surgical History: Hernia Repair Other Surgery: multiple paracentesis Review of Systems Review of Systems Constitutional: Reports no symptoms EENTM: Reports no symptoms Cardiovascular: Reports no symptoms Respiratory: Reports no symptoms Gastrointestinal: Reports no symptoms Genitourinary: Reports no symptoms Musculoskeletal: Reports as per HPI (RLE swelling (chronic)) Integumentary: Reports no symptoms Neurological: Reports no symptoms Psychological: Reports no symptoms Endocrine: Reports no symptoms Hematological/Lymphatic: Reports no symptoms Physical Exam Related Data Allergies: Coded Allergies: No Known Allergies (Unverified , 07/30/19) Triage Vital Signs Vital Signs Date Time Temp Pulse Resp B/P (MAP) Pulse Ox O2 Delivery O2 Flow Rate FiO2 12/31/19 14:40 98.1 83 17 149/77 100 Room Air Vital signs reviewed: Yes Physical Exam CONSTITUTIONAL Constitutional: Present well-developed, Present well-nourished HENT HENT: Present normocephalic, Present atraumatic, Present oropharynx clear/moist, Present nose normal HENT L/R: Present left ext ear normal, Present right ext ear normal EYES Eyes: Reports PERRL, Reports conjunctivae normal NECK Neck: Present ROM normal PULMONARY Pulmonary: Present effort normal, Present breath sounds normal CARDIOVASCULAR Cardiovascular: Present regular rhythm, Present heart sounds normal, Present capillary refill normal, Present normal rate GASTROINTESTINAL Abdominal: Present soft, Present nontender, Present bowel sounds normal GENITOURINARY Genitourinary: Present exam deferred SKIN Skin: Present warm, Present dry MUSCULOSKELETAL Musculoskeletal: Present edema (RLE and mild erythema) NEUROLOGICAL Neurological: Present alert, Present oriented x 3, Present no gross motor or sensory deficits PSYCHOLOGICAL Psychological: Present mood/affect normal, Present judgement normal Results Laboratory Lab results reviewed: Yes Imaging Imaging results reviewed: Yes Diagnostics Tests Diagnostic test(s) reviewed: Yes Assessment & Plan Medical Decision Making MDM 64-year-old female past medical history significant for liver disease presents to the emergency department for right lower extremity swelling. She states of this is been ongoing for months and is not new. Examination shows right lower extremity swelling. Initial differential includes cellulitis versus DVT versus dependent edema among others. Ultrasound and labs show hypokalemia, no DVT. Likely cellulitis. Will Rx Keflex and she will f/u w/ her PCP. Reassessment Reassessment time: 16:02 Reassessment NAD Assessment & Plan Final Impression: (1) Cellulitis (2) Hypokalemia Depart Disposition: HOME, SELF-CARE Last Vital Signs Date Time Temp Pulse Resp B/P (MAP) Pulse Ox O2 Delivery O2 Flow Rate FiO2 12/31/19 14:40 98.1 83 17 149/77 100 Room Air Home Meds Reported Medications Lactulose (LACTULOSE) 20 Gm/30 Ml Solution, 15 MG PO TID, EACH 07/30/19 Insulin Glargine (LANTUS 3ML PEN) 100 Units/1 Ml Inj, 10 UNITS SQ Q12H 07/30/19 Glipizide (GLIPIZIDE) 5 Mg Tablet, 2 MG PO BID, TAB 07/30/19 Furosemide (FUROSEMIDE) 40 Mg Tablet, 40 MG PO HS, #30 TAB 07/30/19 Spironolactone (SPIRONOLACTONE) 25 Mg Tablet, 100 MG PO DAILY, #60 TAB 07/30/19 Levothyroxine Sodium (LEVOTHYROXINE SODIUM) 50 Mcg Tablet, 100 MCG PO DAILY, #30 TAB 07/30/19 VERA BAY MD Dec 31, 2019 15:01
--- OUTSIDE RECORDS SUMMARY | 2019-12-31 15:05 | XMS REPORT | Clinical Summary ---
Author Author [facility] Organization [facility] Address Unknown Phone Unavailable Care Team Providers Care Lehr Tender Name Role Phone Bebeto Brown MD PCP Allergies No Known Allergies Medications End Date Status Medication Sig Dispensed Refills Start Date Active Buprenorphine-Naloxone Place 8 mg 12 Strip 0 (SUBOXONE) 8-2 mg under tongue 1 SublIndications: Opiate As directed. dependence Place one strip under tongue in the morning and half a stip under the tongue in the evening for 4 days then half a strip under the tongue twice daily for 3 days then half a strip under the tongue at bedtime only for 4 days then a quarter of strip under the tongue at bedtime for 4 days then stop medicine CAYLA: [id number] and [id number] DPS: [id number] Active blood glucose meter Use as 1 Kit 0 (PRECISION XTRA directed.. 9 GLUCOMETER)Indications: New onset type 2 diabetes mellitus Active blood glucose (PRECISION Use 2 times 50 Each 3 0 XTRA TEST STRIPS) test weekly (once 9 stripsIndications: New per day on onset type 2 diabetes Sat,) to mellitus test blood sugar. Active lancets 28 Use 2 times 100 Each 1 gaugeIndications: New weekly as 9 onset type 2 diabetes directed. mellitus Active levothyroxine (SYNTHROID) Take 1 tablet 90 tablet 3 75 mcg tabletIndications: by mouth 9 Cirrhosis of liver with every morning ascites, unspecified (before hepatic cirrhosis type breakfast). Active FLUoxetine (PROZAC) 10 mg Take 1 90 capsule 0 capsuleIndications: Mood capsule by 9 disorder mouth daily. Active hydrOXYzine (ATARAX) 25 Take 1 tablet 90 tablet 0 mg tabletIndications: by mouth 3 9 Itching times daily as needed for Itching. Active nicotine (NICODERM CQ) 21 Apply 1 Patch 28 Patch 3 mg/24 hr to skin as 9 patchIndications: Tobacco directed dependence every 24 hours. Active hydrocortisone 1 % Apply to 30 g 0 09/19/2 01 ointmentIndications: Skin affected area 9 lesion 2 times daily. Active lactulose (CHRONULAC) 10 Take 30 mL by 8100 mL 0 gram/15 mL oral mouth 3 times 9 solutionIndications: daily. Cirrhosis of liver with ascites, unspecified hepatic cirrhosis type, Increased ammonia level Active glipiZIDE (GLUCOTROL) 10 Take 0.5 30 tablet 0 1 mg tabletIndications: tablets by 9 Newly diagnosed diabetes mouth 2 times daily (before meals). 02/24/2019 Discontinued (Patient Discha rge) acetaminophen-codeine Take 1 tablet 20 tablet 0 (TYLENOL/CODEINE #3) by mouth 9 300-30 mg per every 6 hours tabletIndications: as needed for Strangulated umbilical Pain. hernia 02/24/2019 Discontinued (Patient Discha rge) traMADol (ULTRAM) 50 mg Take 1 tablet 40 tablet 0 tabletIndications: by mouth 2 9 Strangulated umbilical times daily hernia as needed for Pain. 02/27/2019 Discontinued glipiZIDE (GLUCOTROL) 10 Take 0.5 30 tablet 0 0 mg tabletIndications: tablets by 9 Newly diagnosed diabetes mouth 2 times daily (before meals). 01/09/2019 tropicamide (MYDRIACYL) Instill 1 15 mL 0 0.5 % ophthalmic Drop in each 9 solutionIndications: Type eye once as 2 diabetes mellitus with needed for up hyperglycemia, without to 1 dose long-term current use of (for poor insulin retina scan image). 02/24/2019 Discontinued (Reorder) lactulose (CHRONULAC) 10 Take 30 mL by 8100 mL 0 gram/15 mL oral mouth 3 times 9 solutionIndications: daily. Cirrhosis of liver with ascites, unspecified hepatic cirrhosis type, Increased ammonia level 02/24/2019 Discontinued (Reorder) spironolactone Take 100 mg 0 (ALDACTONE) 100 mg tablet by mouth daily. 03/10/2019 Discontinued spironolactone Take 1 tablet 90 tablet 0 (ALDACTONE) 100 mg by mouth 9 tabletIndications: daily for 90 Cirrhosis of liver with days. ascites, unspecified hepatic cirrhosis type, Periumbilical abdominal pain 03/10/2019 Discontinued (Side effects) furosemide (LASIX) 40 mg Take 1 tablet 90 tablet 0 tabletIndications: by mouth 9 Cirrhosis of liver with daily for 90 ascites, unspecified days. hepatic cirrhosis type, Periumbilical abdominal pain 06/08/2019 spironolactone Take 2 180 tablet 0 (ALDACTONE) 100 mg tablets by 9 tabletIndications: mouth daily Cirrhosis of liver with for 90 days. 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 Edema 10/25/2016 Myalgia 04/23/2011 Costochondritis 04/23/2011 Depression 06/15/2010 Tobacco dependence 05/11/2010 Hypothyroidism 03/02/2010 Hypertension Opiate dependence HCV infection Cirrhosis of liver with ascites Generalized edema Polysubstance abuse Chronic hepatitis C without hepatic com a Essential hypertension Acquired hypothyroidism Other partial intestinal obstruction Abdominal pain S/P exploratory laparotomy New onset type 2 diabetes mellitus Hyperglycemia At risk for hypoglycemia Hemoglobin A1c between 7.0% and 9.0% Type 2 diabetes mellitus with hyperglyc emia, without long-term current use of insulin Unilateral recurrent inguinal hernia wi thout obstruction or gangrene Other ascites Encounters Care Team Description Date Type Specialty Bebeto Brown MD Whigham, Cliff J Jr., DO Cirrhosis of liver with ascites, unspeci fied hepatic cirrhosis type 04/02/2019 Hospital Encounter Mili Torres MD Allen, Sarah A, PA NO SHOW ENCOUNTER (Primary Dx) 03/31/2019 Office Visit General Surgery Jitendra Diallo, Fellow() Cirrhosis of liver with ascites, unspeci fied hepatic cirrhosis type; Periumbilical abdominal pain 03/10/2019 Office Visit Gastroenterology Bebeto Brown MD Medications 02/27/2019 Refill Family Practice Groin swelling 02/26/2019 Ancillary Radiology Procedure Groin swelling 02/26/2019 Ancillary Radiology Procedure Enedelia Oneil MD Nuila, Ricardo E, MD Ahmed, Nabid, MD Kemnade, Jan O, Fellow(MD) Other ascites (Primary Dx); Generalized abdominal pain; Cirrhosis of liver with ascites, unspecified hepatic cirrhosis type; Increased ammonia level; Cirrhosis of liver with ascites, unspecified hepatic cirrhosis type; Periumbilical abdominal pain 02/22/2019 Emergency - 02/24/2019 Kusum Giles PA Umbilical hernia without obstruction and without gangrene (Primary Dx) 02/10/2019 Office Visit General Surgery Renetta Catalan, LIANE 01/22/2019 Nurse Triage José Abreu MD Inguinal hernia of left side without obs truction or gangrene (Primary Dx) 01/21/2019 Office Visit General Surgery Bebeto Brown MD Left inguinal hernia (Primary Dx); Immunization due; Cirrhosis of liver with ascites, unspecified hepatic cirrhosis type; Type 2 diabetes mellitus with hyperglycemia, without long-term current use of insulin; Breast cancer screening; Increased ammonia level 01/09/2019 Office Visit Family Practice after 12/30/2018 Immunizations Name Administration Dates Next Due Influenza, 01/09/2019, 01/06/2018 Vaccine<FLUCELVAX>(Multi- Dose) PPV 23 (Pneumococcal 01/09/2019 Polysaccharide 23 Valent) Tdap (Tetanus Toxoid, 01/09/2019, 06/13/2017 (Def erred: Other - WANTS Reduced Diphtheria Toxoid NEXT VISIT) And Acellular Pertussis, Absorbed) Family History Medical History Relation Name Comments Psychiatry Brother suicide Psychiatry Brother suicide Psychiatry Father suicide Hypertension Maternal Grandmother Other Maternal pt denies family hx of: rad/ca/cad/dm/sz/cva Uncle Psychiatry Maternal suicide Uncle Hypertension Mother Psychiatry Mother etoh and suicide Relation Name Status Comments Brother Brother Brother Daughter Alive Daughter Alive Daughter Alive Daughter Alive Daughter Alive Father Maternal Grandfather Maternal Grandmother Maternal Uncle Mother Paternal Grandfather Paternal Grandmother Sister Alive Sister Alive Sister Alive Son Alive Social History Date Tobacco Use Types Packs/Day Years Used Current Every Day Smoker Cigarettes 0.5 20 Smokeless Tobacco: Never Used Tobacco Cessation: Ready to Quit: No Comments: had cut back to less than half a pack daily on wellbutrin once daily; now smoking again a pack or more a day Drinks/Week oz/Week Comments Alcohol Use once every 2 years h as 4 x 12 oz beers; last drink 02/10/2010 in suicide attempt drank a bottle of liquor with other substances Not Currently Food Insecurity Answer Date Recorded Within the past 12 months, you worried that your Sometimes true 06/13/2017 food would run out before you got money to buy more. Within the past 12 months, the food you bought Sometimes t rue 06/13/2017 just didn't last and you didn't have mo tommy to get more. Sex Assigned at Date Recorded Not on file Industry Job Start Date Occupation Not on file Not on file Not on file Travel End Travel History Travel Start No recent travel history available. Last Filed Vital Signs Reading Time Taken Comments Vital Sign 182/95 04/02/2019 1:00 PM [employer] Blood Pressure 78 04/02/2019 1:00 PM [employer] Pulse 36.9 C (98.4 F) 04/02/2019 1:00 PM [employer] Temperature 18 04/02/2019 1:00 PM [employer] Respiratory Rate 98% 04/02/2019 1:00 PM [employer] Oxygen Saturation - - Inhaled Oxygen Concentration 50.8 kg (112 lb) 04/02/2019 8:00 AM [employer] Weight 149.9 cm (4' 11") 04/02/2019 8:00 AM [employer] Height 22.62 04/02/2019 8:00 AM [employer] Body Mass Index Plan of Treatment Health Maintenance Due Date Last Done Comments Cervical Cancer Scrn (3 02/17/1976 Yrs) Breast Cancer Scrn 1995 (Yearly) Colorectal Cancer Scrn 2005 Annual (FIT/FOBT) Age 50 to 75 DM Retinal Exam (Yearly) 01/02/2019 01/02/2018 DM Microalbumin Urine 01/06/2019 01/06/2018 Scrn (Yearly) IMM Influenza Seasonal 12/24/2019 01/09/2019, Dec to May (>/= 19 yrs) 01/06/2018 DM Foot Exam (Yearly) 01/10/2020 01/09/2019, 06/27/2017 DM HGBA1C (Yearly) 01/10/2020 01/09/2019, 03/26/2018, 09/10/2017, Additional history exists Procedures Comments Procedure Name Priority Date/Time Associated Diag nosis ABD PARACENTESIS Routine 04/02/2019 Cirrhosis of liver with W/IMAGING 12:03 PM [employer] ascites, unspecifie d hepatic cirrhosis type GLUCOSE POC Routine 04/02/2019 8:58 AM [employer] U/S PELVIS LTD NON-OB Routine 02/26/2019 Groin sw elling 1:28 PM [employer] DUPLEX DOPPLER ABD/PEL Routine 02/26/2019 Groin s welling VASCULAR STUDY, COMPLETE 1:28 PM [employer] GLUCOSE POC Routine 02/24/2019 8:48 AM [employer]OB [employer] CBC (WITHOUT Routine 02/24/2019 DIFFERENTIAL) 3:35 AM [employer] COMPREHENSIVE METABOLIC Routine 02/24/2019 PANEL 3:35 AM [employer] GLUCOSE POC Routine 02/23/2019 8:[address] ABDOMEN AND PELVIS [place] 02/23/2019 Generali zed abdominal CONTRAST 6:16 PM [employer] pain LACTIC ACID STAT 02/23/2019 2:37 PM [employer] INFUSION PUMP Routine 02/23/2019 2:29 PM [employer] GLUCOSE POC Routine 02/23/2019 12:56 PM [employer] GLUCOSE POC Routine 02/23/2019 9:24 AM J[employer] CBC Routine 02/23/2019 6:21 AM [employer] PTT Routine 02/23/2019 6:21 AM J[employer] PT/INR Routine 02/23/2019 6:21 AM J[employer] CBC/DIFF Routine 02/23/2019 6:21 AM [employer] MAGNESIUM Routine 02/23/2019 6:21 AM [employer] COMPREHENSIVE METABOLIC Routine 02/23/2019 PANEL 6:21 AM [employer] SEQUENTIAL COMPRESSION Routine 02/23/2019 PUMP 5:57 AM [employer] FLUID CULTURE AND GRAM STAT 02/23/2019 STAIN 12:33 AM [employer]OB [employer] DIFFERENTIAL, CELL COUNT STAT 02/23/2019 12:32 AM [employer]OB [employer]EMAN CELL COUNT, BODY FLUID STAT 02/23/2019 12:32 AM JOB [employer]EMAN LDH, FLD STAT 02/23/2019 12:32 AM JOB [employer]AN GLUCOSE, FLD STAT 02/23/2019 12:32 AM JOB [employer]EM[employer] T PROTEIN, FLD STAT 02/23/2019 12:32 AM J[employer] ALBUMIN, FLD STAT 02/23/2019 12:32 AM JOB [employer]EMAN CELL COUNT, FLUID STAT 02/23/2019 12:32 AM JOB [employer]AN TROPONIN I POC Routine 02/22/2019 11:18 PM JOB [employer]AN TROPONIN I POC Routine 02/22/2019 11:14 PM [employer] VBG POC Routine 02/22/2019 11:07 PM [employer] AMMONIA STAT 02/22/2019 11:02 PM [employer] LIVER PROFILE STAT 02/22/2019 11:02 PM [employer] PT/INR STAT 02/22/2019 11:02 PM [employer] BMP POC Routine 02/22/2019 10:27 PM [employer] DIFFERENTIAL, MANUAL-WAM STAT 02/22/2019 10:22 PM [employer] CBC STAT 02/22/2019 10:22 PM [employer] CBC/DIFF STAT 02/22/2019 10:22 PM [employer] ECHG EKG PROC 12 LEAD Routine 02/22/2019 EKG; TRACING ONLY 10:13 PM [employer] HEMOGLOBIN A1C Routine 01/09/2019 Type 2 diabetes mellitus 3:56 PM CDT with hyperglycemia, without long-term current use of insulin DIABETIC FOOT EXAM Routine 01/09/2019 Type 2 diab etes mellitus 3:16 PM CDT with hyperglycemia, without long-term current use of insulin after 12/30/2018 Results * ABD PARACENTESIS W/IMAGING (04/02/2019 12:03 PM JOB FOREMAN) Specimen Impressions Performed At IMPRESSION: SMS Successful ultrasound guided paracentes is. Dictated By: Denisse Montes De Oca DO, 0 12:06 PM I have reviewed the study and agree wit h the findings in this report. Signed By: Raymond Diggs DO, 04/03/2019 4:30 PM Narrative Performed At Procedure: Ultrasound Guided Paracentesis [facility] billing machine operator: Dr. Denisse Montes De Oca DO Assistants: None Staff: Dr. Raymond Diggs DO Preoperative diagnosis: Abdominal ascit es Post operative diagnosis: Abdominal asc ites Conscious Sedation: None. Patient was c ontinuously monitored by the dedicated IR nurse. Fluoro time: None. Contrast used: None. EBL: Less than 5cc Specimen Obtained: 2.3 L of clear yello w ascitic fluid Blood administered: None. Implants: None. Condition at procedure completion:Good Disposition:Discharged home CPT procedure code: 71901 DISCUSSION: A timeout was performed. Th e patients left lower quadrant of the abdomen was prepped and draped in t he usual sterile fashion. 1% lidocaine was infiltrated into the subc utaneous tissues for local anesthesia. Under ultrasound guidance, a Yueh needle was advanced into the ascitic fluid collection. The inner metallic stylet was removed and the Yueh drain was attached to a Vacuta iner bottle. 2.3 L of fluid were removed. There we re no complications. Dr. Raymond Diggs DO was present throug hout the procedure. Procedure Note Interface, Rad/Mammog In - 04/03/2019 4:35 PM [employer]OB [employer]EM[employer] Procedure: Ultrasound Guided Paracentesis billing machine operator: Dr. Denisse Montes De Oca DO Assistants: None Staff: Dr. Raymond Diggs DO Preoperative diagnosis: Abdominal ascites Post operative diagnosis: Abdominal ascites Conscious Sedation: None. Patient was continuously monitored by the dedicated IR nurse. Fluoro time: None. Contrast used: None. EBL: Less than 5cc Specimen Obtained: 2.3 L of clear yellow ascitic fluid Blood administered: None. Implants: None. Condition at procedure completion:Good Disposition:Discharged home CPT procedure code: 90780 DISCUSSION: A timeout was performed. The patients left lower quadrant of the abdomen was prepped and draped in the usual sterile fashion. 1% lidocaine was infiltrated into the subcutaneous tissues for local anesthesia. Under ultrasound guidance, a Yueh needle was advanced into the ascitic fluid collection. The inner metallic stylet was removed and the Yueh drain was attached to a Vacutainer bottle. 2.3 L of fluid were removed. There were no complications. Dr. Raymond Diggs DO was present throughout the procedure. IMPRESSION IMPRESSION: Successful ultrasound guided paracentesis. Dictated By: Denisse Montes De Oca DO, 04/02/2019 12:06 PM I have reviewed the study and agree with the findings in this report. Signed By: Raymond Diggs DO, 04/03/2019 4:30 PM Performing Organization Address [facility] one Number [facility] * POCT GLUCOSE POC docked device (04/02/2019 8:58 AM JOB FOREMAN) Only the most recent of 5 results within the time period is included. Glucose POC 167 (H) 74 - 106 mg/dL [facility] Specimen Blood Performing Organization Address [facility] one Number [facility] [address] [place] [address] [phone] * U/S PELVIS LTD NON-OB (02/26/2019 1:28 PM JOB FOREMAN) Specimen Impressions Performed At IMPRESSION: [facility] Fluid containing left inguinal hernia w ith the presence of fat on Valsalva maneuver. No evidence of bowel containing hernia. Signed By: Farhad Hughes, 02/26/2019 2 :54 PM Narrative Performed At Ultrasound pelvis: Transabdominal SMS CPT code: 05682 History: left groin swelling evaluation for hernia, history of cirrhosis Comparison: CT abdomen/pelvis 02/23/[address] abdomen/pelvis 11/06/2018 Technique: Images of the left inguina l region were obtained with grayscale and color Doppler images. Findings: A fluid collection in the left inguinal region has a neck of 1.1 cm and extends for approximately 8.7 cm. This corresponds to fluid in the left inguinal canal on CT. There is no incre ased vascularity on color Doppler interrogation. No evidence of bowel. Wi th Valsalva, there is increase in the amount of fat. No evidence of lymphadenopathy. Procedure Note Interface, Rad/Mammog In - 02/26/2019 2:59 PM JOB [employer]EM[employer] Ultrasound pelvis: Transabdominal CPT code: 07944 History: left groin swelling evaluation for hernia, history of cirrhosis Comparison: CT abdomen/pelvis 02/23/2019. CT abdomen/pelvis 11/06/2018 Technique: Images of the left inguinal region were obtained with grayscale and color Doppler images. Findings: A fluid collection in the left inguinal region has a neck of 1.1 cm and extends for approximately 8.7 cm. This corresponds to fluid in the left inguinal canal on CT. There is no increased vascularity on color Doppler interrogation. No evidence of bowel. With Valsalva, there is increase in the amount of fat. No evidence of lymphadenopathy. IMPRESSION IMPRESSION: Fluid containing left inguinal hernia with the presence of fat on Valsalva maneuver. No evidence of bowel containing hernia. Signed By: Farhad Hughes, 02/26/2019 2:54 PM Performing Organization Address City/State/Zipcode Ph one Number [facility] * DUPLEX DOPPLER ABD/PEL VASCULAR STUDY, COMPLETE (02/26/2019 1:28 PM JOB FOREM[employer]) Specimen Impressions Performed At IMPRESSION: [facility] Fluid containing left inguinal hernia w ith the presence of fat on Valsalva maneuver. No evidence of bowel containing hernia. Signed By: Farhad Hughes, 02/26/2019 2 :54 PM Narrative Performed At Ultrasound pelvis: Transabdominal [facility] CPT code: 02008 History: left groin swelling evaluation for hernia, history of cirrhosis Comparison: CT abdomen/pelvis 02/23/[address] abdomen/pelvis 11/06/2018 Technique: Images of the left inguina l region were obtained with grayscale and color Doppler images. Findings: A fluid collection in the left inguinal region has a neck of 1.1 cm and extends for approximately 8.7 cm. This corresponds to fluid in the left inguinal canal on CT. There is no incre ased vascularity on color Doppler interrogation. No evidence of bowel. Wi th Valsalva, there is increase in the amount of fat. No evidence of lymphadenopathy. Procedure Note Interface, Rad/Mammog In - 02/26/2019 2:59 PM [employer]OB [employer] Ultrasound pelvis: Transabdominal CPT code: 72266 History: left groin swelling evaluation for hernia, history of cirrhosis Comparison: CT abdomen/pelvis 02/23/2019. CT abdomen/pelvis 11/06/2018 Technique: Images of the left inguinal region were obtained with grayscale and color Doppler images. Findings: A fluid collection in the left inguinal region has a neck of 1.1 cm and extends for approximately 8.7 cm. This corresponds to fluid in the left inguinal canal on CT. There is no increased vascularity on color Doppler interrogation. No evidence of bowel. With Valsalva, there is increase in the amount of fat. No evidence of lymphadenopathy. IMPRESSION IMPRESSION: Fluid containing left inguinal hernia with the presence of fat on Valsalva maneuver. No evidence of bowel containing hernia. Signed By: Farhad Hughes, 02/26/2019 2:54 PM Performing Organization Address City/State/Zipcode Ph one Number [facility] * Comprehensive Metabolic Panel (02/24/2019 3:35 AM JOB FOREMAN) Only the most recent of 2 results within the time period is included. Sodium 139 136 - 145 mmol/L [facility] Potassium 3.1 (L) 3.5 - 5.1 mmol/L [facility] Chloride 104 98 - 107 mmol/L [facility] CO2 30 21 - 31 mmol/L [facility] Glucose 208 (H) 70 - 110 mg/dL [facility] Calcium 7.4 (L) 8.6 - 10.3 mg/dL [facility] Urea Nitrogen 9.0 7.0 - 25.0 mg/dL [facility] Creatinine 0.6 0.6 - 1.2 mg/dL [facility] Alkaline 108 (H) 34 - 104 U/L [facility] ALT 16 7 - 52 U/L [facility] AST 30 13 - 39 U/L [facility] Bilirubin, 1.7 (H) 0.2 - 1.2 mg/dL [facility] Total Protein 5.6 (L) 6.0 - 8.3 g/dL [facility] GFR, Estimated >90 >=90 mL/min/1.73 m2 [facility] Albumin 2.0 (L) 3.7 - 5.3 g/dL [facility] Anion Gap 5 5 - 16 mmol/L [facility] Specimen Blood Performing Organization Address [facility] one Number [facility] [address] [place] [address] [phone] * CBC (without differential) (02/24/2019 3:35 AM JOB [employer]EM[employer]) WBC 4.6 4.5 - 11.0 K/uL [facility] RBC 3.28 (L) 4.20 - 5.40 M/uL [facility] Hemoglobin 10.9 (L) 12.0 - 16.0 g/dL [facility] Hematocrit 33.3 (L) 37.0 - 47.0 % [facility] MCV 101.5 (H) 82.0 - 92.0 fL [facility] MCH 33.2 (H) 27.0 - 32.0 pg [facility] MCHC 32.7 32.0 - 36.0 g/dL [facility] RDW 53.3 (H) 36.4 - 46.3 fL [facility] Platelet 79 (L) 150 - 400 K/uL [facility] Mean Platelet 12.8 (H) 9.4 - 12.4 fL [facility] Percent NRBC 0.0 % [facility] Specimen Blood Performing Organization Address [facility] one Number [facility] [address] [place] [address] [phone] * CT ABDOMEN AND PELVIS CONTRAST (02/23/2019 6:16 PM JOB FOREM[employer]) Specimen Impressions Performed At IMPRESSION: [facility] 1. Cirrhosis, splenomegaly, and richie l hypertension with varices. Moderate abdominopelvic ascites has inc reased in size. Low attenuating hepatic lesions are stable. 2. Gallstones and sludge without evid ence of cholecystitis. 3. Resolved thrombus in the superior mesenteric vein. 4. Severe atherosclerotic disease of the abdominal aorta and major branches. No aneurysmal dilatation of t he abdominal aorta. 5. Gaseous distention of the transver se colon with mild to moderate burden of stool in the right colon. No evidence of bowel obstruction. Dictated By: Luke Weber MD, 1 04/26/2018 11:50 PM I have reviewed the study and agree wit h the findings in this report. Signed By: Farhad Hughes, 02/24/2019 1 0:15 AM Narrative Performed At EXAM: CT Abdomen and Pelvis WITH contrast SMS INDICATION: Abd distension COMPARISON: Abdomen pelvis CT on 019 and 03/24/2018. Additional history: 64y.o.?female?with PMH of HCV cirrhosis,??DM, ?HTN, hypothyroidism, and remote?IVDU who pre sents with worsening abdominal distention and pain. TECHNIQUE: Abdomen and pelvis were scan laura utilizing a multidetector helical scanner from the lung base to t he pubic symphysis after administration of IV contrast. Coronal and sagittal reformations were obtained. Routine protocol was performe d. Scan was performed when during portal venous phase. IV CONTRAST: 100 mL of Omnipaque 300 ORAL CONTRAST: Water COMPLICATIONS: None RADIATION DOSE: Total DLP: 441 mGy*cm Estimated effective dose: (DLP x 0.015 x size factor) mSv CTDIvol has been reviewed. It is below the limits set by the Radiation Protocol Committee (RPC). FINDINGS: LINES and TUBES: None. LOWER THORAX: Bilateral lower lobe de pendent atelectasis. Stable bilateral trace pleural effusions. No p ericardial effusion. Mild atherosclerotic calcifications of the c oronary arteries. Paraesophageal varices are stable. HEPATOBILIARY: Cirrhosis. Hypoattenuati ng lesions in the hepatic segment Sameera (series 2 image 75) and segment V ( series 2 image 43), measure 0.9 and 0.6 cm, respectively and are too sm all to characterize. These are grossly stable. There are no enhancing lesions. No biliary ductal dilatation. GALLBLADDER: There are layering gallsto rocco/sludge in the gallbladder No wall thickening. SPLEEN: Measures 12.7 cm. No focal lesi ons. PANCREAS: No focal masses or ductal dil atation. ADRENALS: No adrenal nodules KIDNEYS/URETERS: Kidneys enhance symmet rically. No hydronephrosis. No mass. No stones. GI TRACT: Stomach: Normal. Small bowel: Normal in diameter with no rmal wall thickness. Large bowel: Mild gaseous distention wi thout mural thickening. Mild to moderate burden of stool in the right c olon. Appendix: Not visualized. PELVIC ORGANS/BLADDER: The bladder appe ars unremarkable. Atrophic uterus. No adnexal mass. LYMPH NODES: No lymphadenopathy. VESSELS: Stable gastric varices. Reso lution of the SMV thrombus. Stable high-grade stenosis of the proximal sup erior mesenteric artery and moderate to high-grade stenoses of the proximal renal arteries. No aneurysmal dilatation of the abdominal aorta. Stable severe atherosclerotic disease in the aorta an d major arterial branches. No aneurysmal dilatation of the abdominal aorta. PERITONEUM / RETROPERITONEUM: There is significant amount of ascites, mildly increased since prior study. No loculated fluid collections. BONES: Diffuse demineralization. Mild degenerative changes of the lumbar spine. SOFT TISSUES: There is diffuse anasarca . There is a fat and fluid containing para-umbilical hernia. Le ft fluid containing inguinal hernia. Procedure Note Interface, Rad/Mammog In - 02/24/2019 10:20 AM JOB FOREMAN EXAM: CT Abdomen and Pelvis WITH contrast INDICATION: Abd distension COMPARISON: Abdomen pelvis CT on 11/06/2018 and 03/24/2018. Additional history: 64y.o.?female?with PMH of HCV cirrhosis,??DM, ?HTN, hypothyroidism, and remote?IVDU who presents with worsening abdominal distention and pain. TECHNIQUE: Abdomen and pelvis were scanned utilizing a multidetector helical scanner from the lung base to the pubic symphysis after administration of IV contrast. Coronal and sagittal reformations were obtained. Routine protocol was performed. Scan was performed when during portal venous phase. IV CONTRAST: 100 mL of Omnipaque 300 ORAL CONTRAST: Water COMPLICATIONS: None RADIATION DOSE: Total DLP: 441 mGy*cm Estimated effective dose: (DLP x 0.015 x size factor) mSv CTDIvol has been reviewed. It is below the limits set by the Radiation Protocol Committee (RPC). FINDINGS: LINES and TUBES: None. LOWER THORAX: Bilateral lower lobe dependent atelectasis. Stable bilateral trace pleural effusions. No pericardial effusion. Mild atherosclerotic calcifications of the coronary arteries. Paraesophageal varices are stable. HEPATOBILIARY: Cirrhosis. Hypoattenuating lesions in the hepatic segment Sameera (series 2 image 75) and segment V (series 2 image 43), measure 0.9 and 0.6 cm, respectively and are too small to characterize. These are grossly stable. There are no enhancing lesions. No biliary ductal dilatation. GALLBLADDER: There are layering gallstones/sludge in the gallbladder No wall thickening. SPLEEN: Measures 12.7 cm. No focal lesions. PANCREAS: No focal masses or ductal dilatation. ADRENALS: No adrenal nodules KIDNEYS/URETERS: Kidneys enhance symmetrically. No hydronephrosis. No mass. No stones. GI TRACT: Stomach: Normal. Small bowel: Normal in diameter with normal wall thickness. Large bowel: Mild gaseous distention without mural thickening. Mild to moderate burden of stool in the right colon. Appendix: Not visualized. PELVIC ORGANS/BLADDER: The bladder appears unremarkable. Atrophic uterus. No adnexal mass. LYMPH NODES: No lymphadenopathy. VESSELS: Stable gastric varices. Resolution of the SMV thrombus. Stable high-grade stenosis of the proximal superior mesenteric artery and moderate to high-grade stenoses of the proximal renal arteries. No aneurysmal dilatation of the abdominal aorta. Stable severe atherosclerotic disease in the aorta and major arterial branches. No aneurysmal dilatation of the abdominal aorta. PERITONEUM / RETROPERITONEUM: There is significant amount of ascites, mildly increased since prior study. No loculated fluid collections. BONES: Diffuse demineralization. Mild degenerative changes of the lumbar spine. SOFT TISSUES: There is diffuse anasarca. There is a fat and fluid containing para-umbilical hernia. Left fluid containing inguinal hernia. IMPRESSION IMPRESSION: 1. Cirrhosis, splenomegaly, and portal hypertension with varices. Moderate abdominopelvic ascites has increased in size. Low attenuating hepatic lesions are stable. 2. Gallstones and sludge without eviden ce of cholecystitis. 3. Resolved thrombus in the superior me senteric vein. 4. Severe atherosclerotic disease of th e abdominal aorta and major branches. No aneurysmal dilatation of the abdominal aorta. 5. Gaseous distention of the transverse colon with mild to moderate burden of stool in the right colon. No evidence of bowel obstruction. Dictated By: Luke Weber MD, 02/23/2019 11:50 PM I have reviewed the study and agree with the findings in this report. Signed By: Farhad Hughes, 02/24/2019 10:15 AM Performing Organization Address [facility] one Number SMS * Lactic Acid (02/23/2019 2:37 PM JOB FOREMAN) Lactic Acid 1.7 0.5 - 2.2 mmol/L [facility] Specimen Blood Performing Organization Address [facility] one Number [facility] [address] [place] [address] * CBC/Diff (02/23/2019 6:21 AM JOB FOREMAN) Only the most recent of 2 results within the time period is included. WBC 4.5 4.5 - 11.0 K/uL [facility] RBC 3.48 (L) 4.20 - 5.40 M/uL [facility] Hemoglobin 11.3 (L) 12.0 - 16.0 g/dL [facility] Hematocrit 35.1 (L) 37.0 - 47.0 % [facility] MCV 100.9 (H) 82.0 - 92.0 fL [facility] MCH 32.5 (H) 27.0 - 32.0 pg [facility] MCHC 32.2 32.0 - 36.0 g/dL [facility] RDW 52.4 (H) 36.4 - 46.3 fL [facility] Platelet 84 (L) 150 - 400 K/uL [facility] Mean Platelet 12.5 (H) 9.4 - 12.4 fL [facility] Volume [facility] Percent NRBC 0.0 % [facility] Neutrophil 72.7 (H) 34.0 - 70.0 % [facility] Lymphs 15.7 (L) 20.0 - 50.0 % [facility] Monocytes 9.5 5.0 - 12.0 % [facility] Eos 1.3 0.7 - 5.0 % [facility] Basos 0.4 0.1 - 1.2 % [facility] Immature 0.4 0.0 - 0.5 % [facility] Granulocytes [facility] Neutrophils 3.27 1.56 - 6.13 K/uL [facility] (Absolute) [facility] Lymphs 0.71 (L) 1.18 - 3.74 K/uL [facility] (Absolute[facility] Monocytes(Absol 0.43 (H) 0.24 - 0.36 K/uL [facility] wiyot) [facility] Eos (Absolute) 0.06 0.04 - 0.36 K/uL [facility] Baso (Absolute) 0.02 0.01 - 0.08 K/uL [facility] Immature Grans 0.02 0.00 - 0.03 K/uL [facility] (Abs) [facility] Absolute NRBC 0.00 K/uL [facility] Specimen Blood Performing Organization [facility] one Number [facility] [address] [place] [address] * PTT (02/23/2019 6:21 AM JOB FOREMAN) PTT 41.1 (H) 23.6 - 36.4 Seconds [facility] Comment: [facility] The recommended therapuetic range is an APTT 61-103 seconds which corresponds to 0.3-0.7 anti Xa u/ml. Specimen Blood Performing Organization [facility] one Number [facility] [address] [place] [address] * PT/INR (02/23/2019 6:21 AM JOB FOREMAN) Only the most recent of 2 results within the time period is included. Pathologist [facility] PT 19.8 (H) 11.8 - 15.0 Seconds [facility] INR 1.7 Refer to INR [facility] Comment: therapeutic ranges LABORATORY 2.0 - 3.0 for moderate intensity anticoagulation 2.5 - 3.5 for high intensity anticoagulation Specimen Blood Performing Organization [facility] one Number [facility] [address] [place] [address] [phone] * Magnesium (02/23/2019 6:21 AM JOB FOREMAN) Pathologist [facility] Magnesium 1.6 (L) 1.9 - 2.7 mg/dL [facility] Specimen Blood Performing Organization [facility] one Number [facility] [address] [place] [address] * Fluid Culture and Gram Stain (02/23/2019 12:33 AM JOB FOREMAN) Pathologist [facility] Body Fluid No growth 3 days [facility] Culture [facility] Gram Stain 1+ WBCs [facility] Gram Stain No organisms seen [facility] Specimen Body Fluid - Peritoneal cavity Performing Organization [facility] one Number [facility] [address] [place], [place] [id number] [phone] * DIFFERENTIAL, CELL COUNT (02/23/2019 12:32 AM JOB FOREMAN) Pathologist [facility] Neutrophil 10 % [facility] Lymphocyte 15 % [facility] Monocyte 15 % [facility] Macrophage 53 % [facility] Mesothelial, 6 % [facility] Cell [facility] Plasma Cell 1 % [facility] Cells Counted 100 [facility] Specimen Body Fluid - Peritoneum Performing Organization Address [facility] one Number [facility] [address] [place] [address] [phone] * Cell Count, Fluid (02/23/2019 12:32 AM JOB FOREMAN) Volume 3 mL [facility] Appearance Clear Clear [facility] Calculated 2,325 None seen /uL [facility] RBC-Body Fluid [facility] WBC Body Fluid 100 /uL [facility] Clots? No [facility] Specimen Body Fluid - Peritoneum Performing Organization Address [facility] one Number [facility] [address] [place] [address] [phone] * T Protein, Fld (02/23/2019 12:32 AM JOB FOREMAN) Protein, Fluid <3.0 g/dL [facility] Comment: [facility] Reference interval study is not possible due to unavailable normal samples and the limited availability of published data. The reference range has not been established for body fluids. The test result should be integrated into the clinical context for interpretation. Specimen Body Fluid - Peritoneal cavity Performing Organization Address [facility] one Number [facility] [address] [place] [address] * LDH, Fld (02/23/2019 12:32 AM JOB FOREMAN) LDH, Fld 38 U/L [facility] Comment: LABORATORY Reference interval study is not possible due to unavailable normal samples and the limited availability of published data. The reference range has not been established for body fluids. The test result should be integrated into the clinical context for interpretation. Specimen Body Fluid - Peritoneal cavity Narrative Performed At Disclaimer: [facility] The performance characteristic of quant itative testing of body fluid using Adam [id number] has been reviewed and th e performance of the method is considered acceptable for patient testing. This test was developed and its performance characteristic determined by [facility] i[facility] laboratory. It has not been cleared or approved by the [place]. Food an d Drug Administration. The FDA has determined that such clearance of appro alesha is not necessary. This test is used for clinical purposes. It should not be regarded as investigational or research. Performing Organization Address [facility] one Number [facility] [address] [place] [address] * Glucose, Fld (02/23/2019 12:32 AM JOB FOREMAN) Glucose, Fld 267 mg/dL [facility] Comment: LAB[facility]ATORY Reference interval study is not possible due to unavailable normal samples and the limited availability of published data. The reference range has not been established for body fluids. The test result should be integrated into the clinical context for interpretation. Specimen Body Fluid - Peritoneal cavity Narrative Performed At Disclaimer: [facility] The performance characteristic of quant itative testing of body fluid using Adam [id number] has been reviewed and th e performance of the method is considered acceptable for patient testing. This test was developed and its performance characteristic determined by [facility] laboratory. It has not been cleared or approved by the I.S. Food an d Drug Administration. The FDA has determined that such clearance of appro alesha is not necessary. This test is used for clinical purposes. It should not be regarded as investigational or research. Performing Organization Address [facility] one Number [facility] [address] [place] [address] [phone] * Albumin, Fluid (02/23/2019 12:32 AM JOB FOREMAN) Albumin, Fld <1.5 g/dL [facility] Comment: LABORATORY Reference interval study is not possible due to unavailable normal samples and the limited availability of published data. The reference range has not been established for body fluids. The test result should be integrated into the clinical context for interpretation. Specimen Body Fluid - Peritoneal cavity Narrative Performed At Disclaimer: [facility] The performance characteristic of quant itative testing of body fluid using Adam [id number] has been reviewed and th e performance of the method is considered acceptable for patient testing. This test was developed and its performance characteristic determined by [facility]. It has not been cleared or approved by the I.S. Food an d Drug Administration. The FDA has determined that such clearance of appro alesha is not necessary. This test is used for clinical purposes. It should not be regarded as investigational or research. Performing Organization Address [facility] one Number [facility] [address] [place] [address] * POCT TROPONIN I POC docked device (02/22/2019 11:18 PM JOB FOREMAN) Only the most recent of 2 results within the time period is included. Troponin POC 0.00Comment: Physician 0.00 - 0.08 ng/mL [facility] Not[facility] Specimen Blood, venous Performing Organization Address [facility] one Number [facility] [address] [place] [address] * POCT VBG POC docked device (02/22/2019 11:07 PM JOB FOREMAN) pH, Tip POC 7.46 (H) 7.33 - 7.43 [facility] HCO3, Tip POC 26 22 - 26 mmol/L [facility] TCO2 POC 27 21 - 32 mmol/L [facility] PO2, Venous POC 28 (L) 50 - 75 mm Hg [facility] (BKR) [facility] pCO2,Tip POC 36.9 (L) 38 - 50 mmHg [facility] Base Excess Tip 2 mmol/L [facility] POC [facility] Sample Type IVENComment: --- [facility] Lactic Acid POC 2.93 (H) 0.40 - 2.00 mmol/L [facility] % Sat, Tip POC 57 % [facility] Specimen Blood, venous Performing Organization Address [facility] one Number [facility] [address] [place] [address] * Liver Profile (02/22/2019 11:02 PM JOB FOREMAN) Total Protein 6.5 6.0 - 8.3 g/dL [facility] Bilirubin, 2.1 (H) 0.2 - 1.2 mg/dL [facility] Total LABORATORY Alkaline 160 (H) 34 - 104 U/L [facility] Phosphatase [facility]ORY AST 41 (H) 13 - 39 U/L [facility] Direct 0.7 (H) 0.0 - 0.2 mg/dL [facility] Bilirubin [facility] ALT 23 7 - 52 U/L [facility] Albumin 2.3 (L) 3.7 - 5.3 g/dL [facility] Specimen Blood Performing Organization Address [facility] one Number [facility] [address] [place] [address] * Ammonia (02/22/2019 11:02 PM JOB FOREMAN) Ammonia 82.0 (H) 16.0 - 53.0 umol/L [facility] Specimen Blood Performing Organization Address [facility] one Number [facility] [address] [place] [address] * POCT BMP POC docked device (02/22/2019 10:27 PM JOB FOREMAN) Sodium POC 139 136 - 145 mmol/L [facility] Potassium POC 3.5 3.5 - 5.1 mmol/L [facility] Chloride POC 99 98 - 107 mmol/L [facility] TCO2 POC 25 21 - 32 mmol/L [facility] Urea Nitrogen 9 7 - 18 mg/dL [facility] POC [facility] Creatinine POC 0.5 (L) 0.6 - 1.3 mg/dL [facility] Glucose POC 307 (H) 74 - 106 mg/dL [facility] Ionized Calcium 1.10 (L) 1.15 - 1.29 mmol/L [facility] POC [facility] GFR, Estimated >90 >=90 mL/min/1.73 m2 [facility] Hemoglobin POC 13.3Comment: Physician 12 - 16 g/dL [facility] Notified [facility] Hematocrit POC 39.0 37.0 - 47.0 % [facility] Specimen Blood, venous Performing Organization Address [facility] one Number [facility] [address] [place] [address] * Differential, Manual (02/22/2019 10:22 PM JOB FOREMAN) Neutrophil 83.0 (H) 34.0 - 70.0 % [facility] Lymphs 8.0 (L) 20.0 - 50.0 % [facility] Monocytes 7.0 5.0 - 12.0 % [facility] Eos 0.0 (L) 0.7 - 5.0 % [facility] Basos 1.0 0.1 - 1.2 % [facility] Metamyel 1.0 (H) <=0.0 % [facility] Neutrophils 4.32 1.56 - 6.13 K/uL [facility] (Absolute) [facility] Lymphs 0.42 (L) 1.18 - 3.74 K/uL [facility] ([facility] Monocytes(Absol 0.36 0.24 - 0.36 K/uL [facility] wiyot) LAB[facility] Eos (Absolute) 0.00 (L) 0.04 - 0.36 K/uL [facility] Baso (Absolute) 0.05 0.01 - 0.08 K/uL [facility] Ovalocyte 2+ (A) None seen [facility] Schistocyte 1+ (A) None seen [facility] Tear Drop Cell 2+ (A) None seen [facility] Cells Counted [facility] Specimen Blood Performing Organization Address [facility] one Number [facility] [address] [place] [address] * 12 LEAD EKG (02/22/2019 10:13 PM JOB FOREMAN) 12 LEAD EKG FOR [facility] Test Date: 2019-02-22 Pat Name: LUCY SCANLON Department: [id number] Room: [facility] Gender: F Pulley Man: [id number] : 1955 Requested By: KELLEN Allison Order Number: [id number] Reading MD: Pasha Grover M.D. Measurements Intervals [place] Rate: 87 P: SD: 0 QRS: 9 QRSD: 78 T: 16 QT: 420 QTc: 507 Interpretive Statements LIKELY ECTOPIC ATRIAL RHYTHM Electronically Signed On 02-23-2019 6:37:53 JOB FOREMAN by Pasha Grover M.D. Specimen Performing Organization Address [facility] one Number [facility] * Hemoglobin A1C (01/09/2019 3:56 PM CDT) Hemoglobin A1c 6.7 (H) 4.3 - 6.1 % [facility] Estimated 146 (H) 70 - 110 mg/dL [facility] Average Glucose LABORATORY Specimen Blood Performing Organization Address [facility] one Number [facility] [address] [place] [address] [phone] * DIABETIC FOOT EXAM (01/09/2019 3:16 PM CDT) Narrative Performed At Bebeto Brown MD 01/10/20 4:08 PM Diabetic Foot Exam was performed at 3:41 PM. Right foot sensation is normal, right foot pulses are normal, right foot appearance is abnormal (thickended toe nails). L eft foot sensation is normal, left foot pulses are normal, left foot chelo earance is abnormal (thickended toe nails). after 12/30/2018 Insurance Type Payer Benefit Subscriber ID Effective Phone Address Plan / Dates Group [facility] BuyVIP xxxxxxxx 2019-1 [facility] [address] [place] [address] [facility] SELF-PAY SELF-PAY xxxxxx 2019- [phone] [id number] [place] [address] (Work) Advance Directives Date Inactivated Comments Code Status Date Activated 05/20/2019 8:44 PM Full Code 04/02/2019 9:17 AM 02/24/2019 1:59 PM Full Code 02/23/2019 5:33 AM 03/28/2018 6:28 PM Full Code 03/25/2018 12:04 AM 01/08/2018 12:32 PM Full Code 01/07/2018 12:58 PM 11/08/2016 5:10 PM Allow Natural 11/07/2016 9:22 AM
--- OUTSIDE RECORDS SUMMARY | 2019-12-31 15:06 | XMS REPORT | Clinical Summary ---
Author Author [facility] Organization [facility] Address Unknown Phone Unavailable Care Team Providers Care Junior Brand Manager Name Role Phone Asked, No Pcp PCP Unavailable Allergies No Known Active Allergies Medications End Date Status Medication Sig Dispensed Refills Start Date Active insulin GLARGINE (LANTUS) Inject 10 0 100 unit/mL injection Units under (vial) the skin 2 (two) times a day. Active levothyroxine (SYNTHROID) Take 100 mcg 0 100 mcg tablet by mouth daily. Active lactulose 10 gram/15 mL Take 10 g by 0 (15 mL) solution mouth 3 (three) times a day as needed. Active hydrOXYzine (ATARAX) 25 Take 25 mg by 0 MG tablet mouth every 6 (six) hours as needed for itching. 11/28/2019 Discontinued (Stop Taking at Discharge) furosemide (LASIX) 40 mg Take 40 mg by 0 tablet mouth 2 (two) times a day. 11/20/2019 Discontinued (Med List Clean up) spironolactone Take 100 mg 0 (ALDACTONE) 100 MG tablet by mouth daily. 11/20/2019 Discontinued (Med List Clean up) pantoprazole (PROTONIX) Take 40 mg by 0 40 MG EC tablet mouth daily. 11/28/2019 Discontinued (Stop Taking at Discharge) glipiZIDE (GLUCOTROL) 10 Take 10 mg by 0 MG tablet mouth 2 (two) times a day before meals. 11/28/2019 Discontinued (Stop Taking at Discharge) potassium chloride Take 10 mEq 0 (MICRO-K) 10 MEQ CR by mouth capsule daily. 12/29/2019 furosemide (LASIX) 40 mg Take 1 tablet 30 tablet 0 tablet (40 mg total) 0 by mouth daily for 30 days. 12/08/2019 HYDROcodone-acetaminophen Take 1 tablet 30 tablet 0 (NORCO) 5-325 mg per by mouth 0 tabletIndications: acute every 4 pain (four) hours as needed for moderate pain for up to 10 days .acute pain. Max Daily Amount: 6 tablets 12/29/2019 spironolactone Take 1 tablet 30 tablet 0 (ALDACTONE) 100 MG tablet (100 mg 0 total) by mouth daily for 30 days. 12/12/2019 amoxicillin-pot Take 1 tablet 28 tablet 0 11/28/19 2 clavulanate (Augmentin) by mouth 2 0 875-125 mg per tablet (two) times a day for 14 days. 12/28/2019 gabapentin (Neurontin) Take 2 180 capsule 0 100 mg capsule capsules (200 0 mg total) by mouth 3 (three) times a day for 30 days. Active Problems Problem Noted Date Small bowel obstruction 11/20/2019 Ascites 08/28/2019 Hepatic coma/encephalopathy 08/28/2019 Hepatitis C carrier 08/28/2019 Type 2 diabetes mellitus, without long- term current use of insulin Essential hypertension Dysthymia Other specified hypothyroidism Encounters Care Team Description Date Type Specialty Kyra Philip RN 12/02/2019 Patient Quality Outreach Kyra Philip RN 12/01/2019 Patient Quality Outreach Allen Loco MD Crawley, Teri, NP 11/20/2019 Anesthesia General Surgery Event Kathrine Carlisle MD OPEN LEFT INGUINAL HERNIA REPAIR W/ MESH ; PARACENTESIS 11/20/2019 Surgery General Surgery Javad Gandara DO Arriaga, Michael, MD Neason, Chau L., MD Kazim, Lubna S., MD Small bowel obstruction (HCC) (Primary D x); Chronic hepatitis C with cirrhosis (HCC); Cirrhosis of liver with ascites, unspecified hepatic cirrhosis type (HCC); Generalized abdominal pain; Intractable vomiting with nausea, unspecified vomiting type; Hypokalemia 11/19/2019 [facility] General Surgery - Encounter 11/28/2019 11/19/2019 Travel Donell Lemons 10/21/2019 Documentation Transplant Donell Lemons 10/19/2019 Documentation Transplant Alireza Kelly MD Arriaga, Michael, MD Nguyen, Thuyen T., MD 10/08/2019 [facility] Internal Nm dicine - Encounter 10/10/2019 10/08/2019 Travel Wendy Shepard MA Appointment 10/05/2019 Telephone Cardiology Vivien Adams RN Missed appt 10/05/2019 Telephone Transplant Consuelo Magana LCSW 10/02/2019 Documentation Transplant 09/29/2019 Travel Donell Lemons Chronic hepatitis C without hepatic coma (HCC) (Primary Dx); Screening for ischemic heart disease; Encounter for pre-transplant evaluation for liver transplant 09/09/2019 Orders Only Transplant Earline Doty MA New Patient Packet 09/04/2019 Telephone Transplant Gi Acevedo RN Referral - Liver Txp 08/28/2019 Telephone Transplant after 12/30/2018 Surgical History Surgery Date Site/Laterality Comments UMBILICAL HERNIA REPAIR PARACENTESIS COLONOSCOPY REPAIR, HERNIA, INGUINAL 11/20/2019 Groin/Left Proce dure: OPEN LEFT INGUINAL HERNIA REPAIR W/ MESH; PARACENTESIS; Surgeon: Amari Carlisle MD; Location: [facility]; [facility] e: General; Laterality: Left; Medical devices from this surgery are i n the Implants section. Medical History Medical History Date Comments Hypertension Coronary artery disease Abnormal liver function tests Chronic hepatitis C (HCC) Ascites Hepatic encephalopathy (HCC) Anemia Disease of thyroid gland Hypothyroidism Type 2 diabetes mellitus (HCC) Depression and anxiety Social History Date Tobacco Use Types Packs/Day Years Used Current Every Day Smoker Cigarettes Smokeless Tobacco: Never Used Tobacco Cessation: Ready to Quit: No Comments: 10 cigarettes per day Drinks/Week oz/Week Comments Alcohol Use Never Alcohol Habits Answer Date Recorded How often do you have a drink containing alcohol? Never 11/20/2019 How many drinks containing alcohol do you have on No t asked a typical day when you are drinking? How often do you have six or more drinks on one Not asked occasion? Sex Assigned at Date Recorded Not on file Last Filed Vital Signs Reading Time Taken Comments Vital Sign 112/66 11/28/2019 11:39 AM CDT Blood Pressure 78 11/28/2019 11:39 AM CDT Pulse 36.3 C (97.4 F) 11/28/2019 11:39 AM CDT Temperature 17 11/28/2019 11:39 AM CDT Respiratory Rate 100% 11/28/2019 11:39 AM CDT Oxygen Saturation - - Inhaled Oxygen Concentration 45.8 kg (101 lb) 11/20/2019 2:15 PM CDT Weight 149.9 cm (4' 11") 11/20/2019 2:15 PM CDT Height 20.4 11/20/2019 2:15 PM CDT Body Mass Index Plan of Treatment Health Maintenance Due Date Last Done Comments DIABETIC RETINAL EYE EXAM 1955 DIABETIC FOOT EXAM 1965 URINE MICROALBUMIN 1965 CERVICAL CANCER SCREENING 02/17/1976 BREAST CANCER SCREENING 2005 COLONOSCOPY SCREENING 2005 SHINGLES VACCINES (#1) 2005 INFLUENZA VACCINE 10/24/2019 Implants Device Identifier Shelf Expiration Date Model / Serial / L ot Implanted Type Area Manufactur er 04/21/2024 [id number] / / [id number] Plug Hrnia Rpr Perfix Med Surgical N/A: N/A CR B PARTH 1.3x1.55in - [id number] Mesh or Implanted: Qty: 1 on 11/20/2019 by Kathrine Zambrano MD at [facility] Products Procedures Comments Procedure Name Priority Date/Time Associated Diag nosis POC GLUCOSE Routine 11/28/2019 11:40 AM CDT POC GLUCOSE Routine 11/28/2019 8:57 AM CDT POC GLUCOSE Routine 11/28/2019 8:03 AM CDT ESTIMATED GFR Routine 11/28/2019 5:30 AM CDT HEPATIC FUNCTION PANEL Routine 11/28/2019 5:30 AM CDT BASIC METABOLIC PANEL Routine 11/28/2019 5:30 AM CDT CBC HEMOGRAM Routine 11/28/2019 5:30 AM CDT POC GLUCOSE Routine 11/28/2019 5:11 AM CDT POC GLUCOSE Routine 11/28/2019 2:04 AM CDT POC GLUCOSE Routine 11/27/2019 10:10 PM CDT POC GLUCOSE Routine 11/27/2019 6:01 PM CDT MRI ABDOMEN W WO CONTRAST Routine 11/27/2019 5:08 PM CDT POC GLUCOSE Routine 11/27/2019 11:38 AM CDT POC GLUCOSE Routine 11/27/2019 7:52 AM CDT ESTIMATED GFR Routine 11/27/2019 2:31 AM CDT HEPATIC FUNCTION PANEL Routine 11/27/2019 2:31 AM CDT BASIC METABOLIC PANEL Routine 11/27/2019 2:31 AM CDT CBC HEMOGRAM Routine 11/27/2019 2:10 AM CDT BLOOD CULTURE, AEROBIC & Routine 11/27/2019 ANAEROBIC 2:05 AM CDT BLOOD CULTURE, AEROBIC & Routine 11/27/2019 ANAEROBIC 2:[address] ABDOMEN PELVIS W Routine 11/26/2019 CONTRAST 9:52 PM CDT POC GLUCOSE Routine 11/26/2019 8:41 PM CDT POC GLUCOSE Routine 11/26/2019 4:58 PM CDT US ABDOMINAL PARACENTESIS Routine 11/26/2019 IMAGING 4:28 PM CDT CELL COUNT AND Routine 11/26/2019 DIFFERENTIAL, BODY FLUID 4:02 PM CDT PROTEIN, MISC FLUID Routine 11/26/2019 4:02 PM CDT GRAM STAIN Routine 11/26/2019 4:02 PM CDT ANAEROBIC CULTURE Routine 11/26/2019 4:02 PM CDT AEROBIC CULTURE Routine 11/26/2019 4:02 PM CDT POC GLUCOSE Routine 11/26/2019 12:25 PM CDT POC GLUCOSE Routine 11/26/2019 8:31 AM CDT PROTHROMBIN TIME WITH INR Routine 11/26/2019 4:30 AM CDT CBC HEMOGRAM Routine 11/26/2019 4:30 AM CDT ESTIMATED GFR Routine 11/26/2019 4:00 AM CDT HEPATIC FUNCTION PANEL Routine 11/26/2019 4:00 AM CDT BASIC METABOLIC PANEL Routine 11/26/2019 4:00 AM CDT POC GLUCOSE Routine 11/25/2019 10:24 PM CDT POC GLUCOSE Routine 11/25/2019 5:12 PM CDT POC GLUCOSE Routine 11/25/2019 11:08 AM CDT URINALYSIS SCREEN AND Routine 11/25/2019 MICROSCOPY, WITH REFLEX 9:05 AM CDT TO CULTURE URINE CULTURE Routine 11/25/2019 9:05 AM CDT POC GLUCOSE Routine 11/25/2019 8:43 AM CDT BLOOD CULTURE, AEROBIC & Routine 11/25/2019 ANAEROBIC 6:55 AM CDT BLOOD CULTURE, AEROBIC & Routine 11/25/2019 ANAEROBIC 6:15 AM CDT ESTIMATED GFR Routine 11/25/2019 4:00 AM CDT BILIRUBIN DIRECT Routine 11/25/2019 4:00 AM CDT COMPREHENSIVE METABOLIC Routine 11/25/2019 PANEL 4:00 AM CDT PHOSPHORUS LEVEL Routine 11/25/2019 4:00 AM CDT MAGNESIUM LEVEL Routine 11/25/2019 4:00 AM CDT PROTHROMBIN TIME WITH INR Routine 11/25/2019 3:20 AM CDT CBC HEMOGRAM Routine 11/25/2019 3:20 AM CDT POC GLUCOSE Routine 11/24/2019 9:03 PM CDT POC GLUCOSE Routine 11/24/2019 3:57 PM CDT POC GLUCOSE Routine 11/24/2019 11:24 AM CDT XR CHEST 1 VW PORTABLE STAT 11/24/2019 11:15 AM CDT POC GLUCOSE Routine 11/24/2019 7:59 AM CDT ESTIMATED GFR Routine 11/24/2019 4:22 AM CDT HEMOGLOBIN A1C Routine 11/24/2019 4:22 AM CDT HEPATIC FUNCTION PANEL Routine 11/24/2019 4:22 AM CDT BASIC METABOLIC PANEL Routine 11/24/2019 4:22 AM CDT CBC HEMOGRAM Routine 11/24/2019 4:22 AM CDT PROTHROMBIN TIME WITH INR Routine 11/24/2019 4:20 AM CDT POC GLUCOSE Routine 11/24/2019 4:00 AM CDT POC GLUCOSE Routine 11/23/2019 11:19 PM CDT POC GLUCOSE Routine 11/23/2019 8:22 PM CDT ESTIMATED GFR Timed 11/23/2019 5:08 PM CDT BASIC METABOLIC PANEL Timed 11/23/2019 5:08 PM CDT POC GLUCOSE Routine 11/23/2019 3:50 PM CDT POC GLUCOSE Routine 11/23/2019 11:19 AM CDT XR ABDOMEN 1 VW PORTABLE Routine 11/23/2019 10:48 AM CDT POC GLUCOSE Routine 11/23/2019 7:57 AM CDT CBC HEMOGRAM Routine 11/23/2019 4:30 AM CDT PROTHROMBIN TIME WITH INR Routine 11/23/2019 4:30 AM CDT ESTIMATED GFR Routine 11/23/2019 4:00 AM CDT HEPATIC FUNCTION PANEL Routine 11/23/2019 4:00 AM CDT BASIC METABOLIC PANEL Routine 11/23/2019 4:00 AM CDT ALPHA FETOPROTEIN Routine 11/23/2019 4:00 AM CDT POC GLUCOSE Routine 11/22/2019 8:21 PM CDT POC GLUCOSE Routine 11/22/2019 3:49 PM CDT POC GLUCOSE Routine 11/22/2019 11:13 AM CDT POC GLUCOSE Routine 11/22/2019 8:41 AM CDT ESTIMATED GFR Routine 11/22/2019 4:00 AM CDT COMPREHENSIVE METABOLIC Routine 11/22/2019 PANEL 4:00 AM CDT POC GLUCOSE Routine 11/22/2019 3:52 AM CDT PROTHROMBIN TIME WITH INR Routine 11/22/2019 3:45 AM CDT HC COMPLETE BLD COUNT Routine 11/22/2019 W/AUTO DIFF 3:45 AM CDT POC GLUCOSE Routine 11/21/2019 8:03 PM CDT POC GLUCOSE Routine 11/21/2019 3:53 PM CDT POC GLUCOSE Routine 11/21/2019 12:22 PM CDT POC GLUCOSE Routine 11/21/2019 7:38 AM CDT POC GLUCOSE Routine 11/21/2019 4:38 AM CDT HC COMPLETE BLD COUNT Routine 11/21/2019 W/AUTO DIFF 4:20 AM CDT ESTIMATED GFR Routine 11/21/2019 4:00 AM CDT LACTIC ACID LEVEL Routine 11/21/2019 4:00 AM CDT COMPREHENSIVE METABOLIC Routine 11/21/2019 PANEL 4:00 AM CDT ESTIMATED GFR Routine 11/21/2019 12:00 AM CDT HEPATIC FUNCTION PANEL Routine 11/21/2019 12:00 AM CDT PROTHROMBIN TIME WITH INR Routine 11/21/2019 12:00 AM CDT BASIC METABOLIC PANEL Routine 11/21/2019 12:00 AM CDT HC COMPLETE BLD COUNT Routine 11/21/2019 W/AUTO DIFF 12:00 AM CDT POC GLUCOSE Routine 11/20/2019 11:20 PM CDT XR ABDOMEN 1 VW PORTABLE Routine 11/20/2019 8:22 PM CDT POC GLUCOSE Routine 11/20/2019 7:59 PM CDT ESTIMATED GFR Routine 11/20/2019 7:43 PM CDT BASIC METABOLIC PANEL Routine 11/20/2019 7:43 PM CDT LACTIC ACID LEVEL Routine 11/20/2019 7:43 PM CDT SURGICAL PATHOLOGY Routine 11/20/2019 REQUEST 6:26 PM CDT LA AN ELECTIVE Routine 11/20/[address] AIRWAY 5:41 PM CDT REPAIR, HERNIA, INGUINAL 11/20/2019 OPEN LEFT IN GUINAL HERNIA 4:53 PM CDT REPAIR POTASSIUM, SYRINGE STAT 11/20/2019 3:28 PM CDT POC GLUCOSE Routine 11/20/2019 12:18 PM CDT POTASSIUM LEVEL STAT 11/20/2019 12:04 PM CDT TYPE AND SCREEN STAT 11/20/2019 11:40 AM CDT POC GLUCOSE Routine 11/20/2019 9:26 AM CDT LACTIC ACID LEVEL STAT 11/20/2019 9:02 AM CDT HC COMPLETE BLD COUNT STAT 11/20/2019 W/AUTO DIFF 9:02 AM CDT LACTIC ACID LEVEL, SEPSIS Timed 11/20/2019 - NOW AND REPEAT 2X EVERY 4:05 AM CDT 3 HOURS POC GLUCOSE Routine 11/20/2019 3:54 AM CDT XR ABDOMEN 1 VW PORTABLE STAT 11/20/2019 2:26 AM CDT LACTIC ACID LEVEL, SEPSIS Timed 11/20/2019 - NOW AND REPEAT 2X EVERY 1:56 AM CDT [address] ABDOMEN PELVIS W STAT 11/20/2019 CONTRAST 12:58 AM CDT ESTIMATED GFR STAT 11/19/2019 11:34 PM CDT PHOSPHORUS LEVEL STAT 11/19/2019 11:34 PM CDT MAGNESIUM LEVEL STAT 11/19/2019 11:34 PM CDT AMMONIA LEVEL STAT 11/19/2019 11:34 PM CDT ALCOHOL LEVEL, BLOOD STAT 11/19/2019 11:34 PM CDT LIPASE LEVEL STAT 11/19/2019 11:34 PM CDT PARTIAL THROMBOPLASTIN STAT 11/19/2019 TIME (PTT) 11:34 PM CDT PROTHROMBIN TIME WITH INR STAT 11/19/2019 11:34 PM CDT HC COMPLETE BLD COUNT STAT 11/19/2019 W/AUTO DIFF 11:34 PM CDT LACTIC ACID LEVEL, SEPSIS STAT 11/19/2019 - NOW AND REPEAT 2X EVERY 11:34 PM CDT 3 HOURS COMPREHENSIVE METABOLIC STAT 11/19/2019 PANEL 11:34 PM CDT COVID-19 QUALITATIVE PCR STAT 11/19/2019 11:34 PM CDT POC GLUCOSE Routine 10/09/2019 7:05 PM CDT US ABDOMEN COMPLETE Routine 10/09/2019 3:05 PM CDT US ABDOMINAL PARACENTESIS Routine 10/09/2019 IMAGING 2:43 PM CDT CELL COUNT AND Routine 10/09/2019 DIFFERENTIAL, BODY FLUID 2:20 PM CDT PROTEIN, MISC FLUID Routine 10/09/2019 2:20 PM CDT ALBUMIN, MISC FLUID Routine 10/09/2019 2:20 PM CDT GRAM STAIN Routine 10/09/2019 2:20 PM CDT ANAEROBIC CULTURE Routine 10/09/2019 2:20 PM CDT AEROBIC CULTURE Routine 10/09/2019 2:20 PM CDT BLOOD CULTURE, AEROBIC & Routine 10/09/2019 ANAEROBIC 11:30 AM CDT BLOOD CULTURE, AEROBIC & Routine 10/09/2019 ANAEROBIC 11:15 AM CDT POC GLUCOSE Routine 10/09/2019 10:02 AM CDT POC GLUCOSE Routine 10/09/2019 8:43 AM CDT PHOSPHORUS LEVEL Routine 10/09/2019 5:41 AM CDT MAGNESIUM LEVEL Routine 10/09/2019 5:41 AM CDT T4, FREE Routine 10/09/2019 5:41 AM CDT THYROID STIMULATING Routine 10/09/2019 HORMONE 5:41 AM CDT ESTIMATED GFR Routine 10/09/2019 5:41 AM CDT COMPREHENSIVE METABOLIC Routine 10/09/2019 PANEL 5:41 AM CDT PARTIAL THROMBOPLASTIN Routine 10/09/2019 TIME (PTT) 5:41 AM CDT PROTHROMBIN TIME WITH INR Routine 10/09/2019 5:41 AM CDT HC COMPLETE BLD COUNT Routine 10/09/2019 W/AUTO DIFF 5:41 AM CDT POC GLUCOSE Routine 10/08/2019 11:25 PM CDT COVID-19 QUALITATIVE PCR Routine 10/08/2019 10:32 PM CDT ESTIMATED GFR Routine 10/08/2019 8:55 PM CDT HC COMPLETE BLD COUNT Routine 10/08/2019 W/AUTO DIFF 8:55 PM CDT COMPREHENSIVE METABOLIC Routine 10/08/2019 PANEL 8:55 PM CDT after 12/30/2018 Results * POC glucose (11/28/2019 11:40 AM CDT) Only the most recent of 46 results within the time period is included. [facility] POC glucose 239 (H) 65 - 99 mg/dL [place] Comment: [facility] Main Line Station Engineer Name: [facility] Device ID: [id number] Chartable: [facility] Notified RN Specimen Blood Performing Organization Address City/State/ZIP Code P [place] Number [facility] DEPARTMENT OF [address] [place] [id number] PATHOLOGY AND GENOMIC MEDICINE [place] [facility] [address] [place] [address] * Estimated GFR (11/28/2019 5:30 AM CDT) Only the most recent of 14 results within the time period is included. [facility] Estimated GFR >=90 mL/min/1.73 m2 [place] Comment: [facility] Interpretation G1 >=90 Normal or high G2 60-89 Mildly decreased G3a 45-59 Mildly to moderately decreased G3b 30-44 Moderately to severely decreased G4 15-29 Severely decreased G5 <15 Kidney failure The eGFR was calculated using the Chronic Kidney Disease Epidemiology Collaboration (CKD-EPI) equation. Interpretation is based on recommendations of the National Kidney Foundation-Kidney Disease Outcomes Quality Initiative (NKF-KDOQI) published in 2014. Specimen Performing Organization Address City/[facility] [address]/ZIP Code P arabella Number [facility] [place] [address] PATHOLOGY AND GENOMIC MEDICINE [address] * CBC hemogram (11/28/2019 5:30 AM CDT) Only the most recent of 6 results within the time period is included. Pathologist [facility] WBC 7.78 4.50 - 11.00 k/uL [facility] RBC 3.16 (L) 4.20 - 5.50 m/uL [facility] HGB 10.5 (L) 12.0 - 16.0 g/dL [facility] HCT 31.0 (L) 37.0 - 47.0 % [facility] MCV 98.1 82.0 - 100.0 fL [facility] MCH 33.2 27.0 - 34.0 pg [facility] MCHC 33.9 31.0 - 37.0 g/dL [facility] RDW - SD 55.0 37.0 - 55.0 fL [facility] MPV 13.1 8.8 - 13.2 fL [facility] Platelet count 91 (L) 150 - 400 k/uL [facility] Nucleated RBC 0.30 /100 WBC [facility] Specimen Blood Performing Organization Address City/[facility] [address]/[facility] P arabella Number [facility] [place] [address] PATHOLOGY AND GENOMIC MEDICINE [address] * Hepatic function panel (11/28/2019 5:30 AM CDT) Only the most recent of 6 results within the time period is included. Pathologist [facility] Albumin 2.7 (L) 3.5 - 5.0 g/dL [facility] Total bilirubin 1.1 0.0 - 1.2 mg/dL [facility] Bilirubin 0.4 (H) 0.0 - 0.3 mg/dL [place] direct [facility] Alkaline 116 (H) 35 - 104 U/L [place] phosphatase [facility] Protein 6.2 (L) 6.3 - 8.3 g/dL [place] Comment: [facility] 4.6-7.0 g/dL 1 week 4.4-7.6 g/dL 7 months-1year 5.1-7.3 g/dL 1-2 years 5.6-7.5 g/dL >3 years 6.0-8.0 g/dL 18-150 6.3-8.3 g/dL ALT 14 5 - 50 U/L [facility] AST 29 10 - 35 U/L [facility] Specimen Blood Performing Organization Address City/[facility] [address]/ZIP Code [place] Number [facility] [place] [address] PATHOLOGY AND GENOMIC MEDICINE [address] * Basic metabolic panel (11/28/2019 5:30 AM CDT) Only the most recent of 8 results within the time period is included. Sodium 138 135 - 148 mEq/L [facility] Potassium 3.3 (L) 3.5 - 5.0 mEq/L [facility] Chloride 102 98 - 112 mEq/L [facility] CO2 25 24 - 31 mEq/L [facility] Anion gap 11@ANIO 7 - 15 mEq/L [facility] BUN 6 (L) 8 - 23 mg/dL [facility] Creatinine 0.58 0.50 - 0.90 mg/dL [facility] Glucose 66 65 - 99 mg/dL [facility] Calcium 8.5 (L) 8.8 - 10.2 mg/dL [facility] Specimen Blood Performing Organization Address City/[facility] [address]/[facility] P [place] Number [facility] [place] [address] PATHOLOGY AND GENOMIC MEDICINE [address] * MRI Abdomen W Wo Contrast (11/27/2019 5:08 PM CDT) Specimen Narrative Performed At [facility] EXAMINATION: MRI ABDOMEN W WO CONTRAS T CLINICAL HISTORY:64 years Female david er mass protocol- possible HCC on CT COMPARISON: 11/26/2019 TECHNIQUE: Multiplanar, multisequence M RI of the abdomen with and without intravenous gadolinium. Heavily T2-weig hted MRCP sequences included with 3-D processing performed on acquisition sca nn under concurrent supervision. FINDINGS: The liver cirrhotic. There is a 1.1 cm arterial phase hypervascular focus in segment 6 (series 9 image 228), isointe nse on T2/DWI and without definite washout or pseudocapsule. There is conf luent fibrosis laterally in segment 8. A punctate lesion in segment 4A hypoenh ancing on arterial/early venous phase (series 9 image 374) and hyperenhancing on delayed phase (series 14 image 53) likely corresponding to T2 bright focus on series 10 image 12) and most consistent with a hemangioma. Subcentimeter cyst in segme nt 3. Portal vein is patent. Mild splenomegal y, moderate large ascites, and esophageal varices. Diffuse mesenteric edema and bowel thic kening likely secondary to portal hypertension. Cholelithiasis. No biliary dilatation. Atrophic pancreas. Unremarkable kidneys and adrenal glands . Aorta is normal in caliber. Ventral hernia containing fat and ascit es. IMPRESSION: 1.Liver cirrhosis and portal hypertensi on. 2.A 1.1 cm hyperenhancing nodule in the right lobe is indeterminate, LI-RADS 3. Recommend 3 month follow-up liver henry col CT or MRI. [id number] Procedure Note Hm Interface, Radiology Results Incoming - 11/27/2019 6:50 PM CDT EXAMINATION: MRI ABDOMEN W WO CONTRAST CLINICAL HISTORY:64 years Female liver mass protocol- possible HCC on CT COMPARISON: 11/26/2019 TECHNIQUE: Multiplanar, multisequence MRI of the abdomen with and without intravenous gadolinium. Heavily T2-weighted MRCP sequences included with 3-D processing performed on acquisition scanner under concurrent supervision. FINDINGS: The liver cirrhotic. There is a 1.1 cm arterial phase hypervascular focus in segment 6 (series 9 image 228), isointense on T2/DWI and without definite washout or pseudocapsule. There is confluent fibrosis laterally in segment 8. A punctate lesion in segment 4A hypoenhancing on arterial/early venous phase (series 9 image 374) and hyperenhancing on delayed phase (series 14 image 53) likely corresponding to T2 bright focus on series 10 image 12) and most consistent with a hemangioma. Subcentimeter cyst in segment 3. Portal vein is patent. Mild splenomegaly, moderate large ascites, and esophageal varices. Diffuse mesenteric edema and bowel thickening likely secondary to portal hypertension. Cholelithiasis. No biliary dilatation. Atrophic pancreas. Unremarkable kidneys and adrenal glands. Aorta is normal in caliber. Ventral hernia containing fat and ascites. IMPRESSION: 1.Liver cirrhosis and portal hypertensio n. 2.A 1.1 cm hyperenhancing nodule in the right lobe is indeterminate, LI-RADS 3. Recommend 3 month follow-up liver protocol CT or MRI. [id number] Performing Organization Address City/State/ZIP Code P arabella Number [facility] [address] [place] [id number] * Blood culture, aerobic & anaerobic (11/27/2019 2:05 AM CDT) Only the most recent of 6 results within the time period is included. Blood culture No growth after 5 days of [place] isolate incubation. [facility] Comment: HOSPITAL Specimen Information Specimen Source: Blood Specimen Site: UNSPECIFIED Specimen Blood Performing Organization Address City/[facility] [address]/[facility] Code P [place] Number [facility] DEPARTMENT OF [address] [place] [id number] PATHOLOGY AND GENOMIC MEDICINE [place] [facility] [address] [place] [address] HOSPITAL * CT Abdomen Pelvis W Contrast (11/26/2019 9:52 PM CDT) Only the most recent of 2 results within the time period is included. Specimen Narrative Performed At CT ABDOMEN PELVIS W CONTRAST [facility] CLINICAL INDICATION: increasing distent ion and enterococcal bacteremia TECHNIQUE: Multidetector CT imaging o f the abdomen and pelvis was performed following the intravenous administratio n of iodinated contrast with multiplanar reconstructions. CT imaging was perfo rmed with iterative reconstruction technique and/or automated exposure control to reduce ra diation dose. COMPARISON: 11/20/2019 IMPRESSION: LOWER THORAX: Mild bibasilar atelecta sis/scarring. Some coronary artery calcifications are identified. Minimal mitral valve calcifications are seen. LIVER: Cirrhotic liver. Within the right lobe of the liver, there is a 1.1 cm enhancing lesion that is indetermina te. This raises concern for possible hepatocellular carcinoma, and full eval uation with CT liver mass protocol or MRI abdomen is advised on nonemergent basis. (This is best see n on series 2, image 38) BILIARY: Gallstones are seen in the l umen of the bladder. Some calculi are seen within the cystic duct. No wall th ickening is identified, and pericholecystic fluid is nonspecific gi hernandez the ascites. No biliary ductal dilation is seen. SPLEEN: Normal. PANCREAS: Normal. ADRENALS: Normal. KIDNEYS: Kidneys and ureters are norm al. Small gas in the bladder may just be related to recent catheterization. PERITONEUM: Moderate ascites. No free i ntraperitoneal air. Anterior abdominal wall ventral hernia is identified containing a loop of small bowel. There is a small fluid-containin g left inguinal region hernia. VASCULAR: Esophageal varices and some perigastric varices are seen. A left splenorenal shunt is identified. Some a nterior abdominal mesenteric varices are seen. Moderate atherosclerotic vascular calci fications and plaque are identified. LYMPH NODES: No enlarged lymph nodes in the abdomen or pelvis. GI: Moderate quantity of fecal materi al is seen of the large bowel. Mild to moderate wall thickening of loops of la rge bowel and small bowel are seen diffusely throughout the peritoneal cav ity, which may just represent some third spacing/edema. Correlation to exclude enterocolitis is advised. The appendix is normal. No gastrointestinal tract obstruction. Moderate wall thickening/edema of the s tomach may just be secondary to third spacing. Correlation to exclude gastrit is is advised. BONES: There are no acute osseous abn ormalities. SOFT TISSUES: Mild to moderate anasar ca. Summary: Cirrhotic liver with esophageal varices , perigastric varices, compatible with portal hypertension. Moderate ascites i s identified. Enhancing lesion in the right lobe of t he liver measuring 1.1 cm raises concern for hepatocellular carcinoma, and furth er evaluation with CT liver mass protocol or MRI abdomen with and without contras t is advised. Gallstones without cholecystitis. Some stone are seen within the cystic duct. No biliary ductal dilation is identified. Moderate wall thickening and edema of l oops of large bowel and small bowel may just represent third spacing/edema. Cor relation to exclude enteritis/colitis is advised. Question of gastritis. [facility]-[id number] Procedure Note [facility], Radiology Results Incoming - 11/26/2019 11:[address] ABDOMEN PELVIS W CONTRAST CLINICAL INDICATION: increasing distention and enterococcal bacteremia TECHNIQUE: Multidetector CT imaging of the abdomen and pelvis was performed following the intravenous administration of iodinated contrast with multiplanar reconstructions. CT imaging was performed with iterative reconstruction technique and/or automated exposure control to reduce radiation dose. COMPARISON: 11/20/2019 IMPRESSION: LOWER THORAX: Mild bibasilar atelectasis/scarring. Some coronary artery calcifications are identified. Minimal mitral valve calcifications are seen. LIVER: Cirrhotic liver. Within the right lobe of the liver, there is a 1.1 cm enhancing lesion that is indeterminate. This raises concern for possible hepatocellular carcinoma, and full evaluation with CT liver mass protocol or MRI abdomen is advised on nonemergent basis. (This is best seen on series 2, image 38) BILIARY: Gallstones are seen in the lumen of the bladder. Some calculi are seen within the cystic duct. No wall thickening is identified, and pericholecystic fluid is nonspecific given the ascites. No biliary ductal dilation is seen. SPLEEN: Normal. PANCREAS: Normal. ADRENALS: Normal. KIDNEYS: Kidneys and ureters are normal. Small gas in the bladder may just be related to recent catheterization. PERITONEUM: Moderate ascites. No free intraperitoneal air. Anterior abdominal wall ventral hernia is identified containing a loop of small bowel. There is a small fluid-containing left inguinal region hernia. VASCULAR: Esophageal varices and some perigastric varices are seen. A left splenorenal shunt is identified. Some anterior abdominal mesenteric varices are seen. Moderate atherosclerotic vascular calcifications and plaque are identified. LYMPH NODES: No enlarged lymph nodes in the abdomen or pelvis. GI: Moderate quantity of fecal material is seen of the large bowel. Mild to moderate wall thickening of loops of large bowel and small bowel are seen diffusely throughout the peritoneal cavity, which may just represent some third spacing/edema. Correlation to exclude enterocolitis is advised. The appendix is normal. No gastrointestinal tract obstruction. Moderate wall thickening/edema of the stomach may just be secondary to third spacing. Correlation to exclude gastritis is advised. BONES: There are no acute osseous abnormalities. SOFT TISSUES: Mild to moderate anasarca. Summary: Cirrhotic liver with esophageal varices, perigastric varices, compatible with portal hypertension. Moderate ascites is identified. Enhancing lesion in the right lobe of the liver measuring 1.1 cm raises concern for hepatocellular carcinoma, and further evaluation with CT liver mass protocol or MRI abdomen with and without contrast is advised. Gallstones without cholecystitis. Some stone are seen within the cystic duct. No biliary ductal dilation is identified. Moderate wall thickening and edema of loops of large bowel and small bowel may just represent third spacing/edema. Correlation to exclude enteritis/colitis is advised. Question of gastritis. [facility]-[id number] Performing Organization Address City/State/ZIP Code P arabella Number [facility] [address] [place] [address] * US Abdominal Paracentesis Imaging (11/26/2019 4:28 PM CDT) Only the most recent of 2 results within the time period is included. Specimen Narrative Performed At PROCEDURE: [facility] Ultrasound-guided paracentesis Performing Clinician: Quan Aguillon PA-C Attending Physician: Dr. Rowan Assistants: None Pre Procedure Diagnosis: ASCITES Post Procedure Diagnosis: ASCITES Indication: Ascites Complications: No immediate post procedure complicatio ns. IMPRESSION: 1.Technically successful ultrasound-michael ded diagnostic/therapeutic paracentesis. 2.There is a moderate simple ascites. 3.Trace residual ascites is seen on pos tprocedure ultrasound. PLAN: The patient will be monitored in the re covery area for approximately 30 minutes to evaluate vital signs and blood press ure. PROCEDURE SUMMARY: Access of the peritoneal space using ul trasound guidance PROCEDURE DETAILS: Pre-procedure: Comparison studies: None Written and informed consent for the pr ocedure and monitored conscious sedation was obtained from the patient. Prophylactic antibiotics: None Preparation: The right lower quadrant o f the abdomen was prepared and draped using all elements of maximal sterile b arrier technique including sterile gloves, sterile gown, catheter, mask, l arge sterile sheet, sterile ultrasound probe cover, hand hygiene and cutaneous antisepsis using chlorhex idine. Anesthesia/Sedation: Level of anesthesia: None (Lidocaine on ly) Medications used: 1% lidocaine Duration of anesthesia/sedation: N/A Access: Local anesthesia was administered. The right lower quadrant was evaluated with preprocedure ultrasound. Real-time ultr asound was used to visualize needle entry into the peritoneal space. Access technique: One-step Catheter Paracentesis: Fluid Color: Yellow Volume Removed: 3300 mL Fluid Analysis: The fluid was sent for laboratory tests ordered by the primary team Closure: The One-step catheter was removed and h emostasis was achieved with manual compression. A sterile dressing was chelo lied. Additional details: Estimated blood loss: Less than 10 cc [id number] Procedure Note Interface, Radiology Results Incoming - 11/26/2019 6:31 PM CDT PROCEDURE: Ultrasound-guided paracentesis Performing Clinician: Quan Aguillon PA-C Attending Physician: Dr. Rowan Assistants: None Pre Procedure Diagnosis: ASCITES Post Procedure Diagnosis: ASCITES Indication: Ascites Complications: No immediate post procedure complications. IMPRESSION: 1.Technically successful ultrasound-guid ed diagnostic/therapeutic paracentesis. 2.There is a moderate simple ascites. 3.Trace residual ascites is seen on post procedure ultrasound. PLAN: The patient will be monitored in the recovery area for approximately 30 minutes to evaluate vital signs and blood pressure. PROCEDURE SUMMARY: Access of the peritoneal space using ultrasound guidance PROCEDURE DETAILS: Pre-procedure: Comparison studies: None Written and informed consent for the procedure and monitored conscious sedation was obtained from the patient. Prophylactic antibiotics: None Preparation: The right lower quadrant of the abdomen was prepared and draped using all elements of maximal sterile barrier technique including sterile gloves, sterile gown, catheter, mask, large sterile sheet, sterile ultrasound probe cover, hand hygiene and cutaneous antisepsis using chlorhexidine. Anesthesia/Sedation: Level of anesthesia: None (Lidocaine only) Medications used: 1% lidocaine Duration of anesthesia/sedation: N/A Access: Local anesthesia was administered. The right lower quadrant was evaluated with preprocedure ultrasound. Real-time ultrasound was used to visualize needle entry into the peritoneal space. Access technique: One-step Catheter Paracentesis: Fluid Color: Yellow Volume Removed: 3300 mL Fluid Analysis: The fluid was sent for laboratory tests ordered by the primary team Closure: The One-step catheter was removed and hemostasis was achieved with manual compression. A sterile dressing was applied. Additional details: Estimated blood loss: Less than 10 cc [facility]-[id number] Performing Organization Address [facility] [address]/[facility] P arabella Number [facility] [address] [place] [address] * Aerobic culture (11/26/2019 4:02 PM CDT) Only the most recent of 2 results within the time period is included. Aerobic culture No growth after 3 days. [facility] isolate Comment: [facility] Specimen Information HOSPITAL Specimen Source: Peritoneal fluid Specimen Site: Abdomen Specimen Peritoneal fluid - Abdomen Performing Organization Address City/[facility] [address]/ZIP [facility] P arabella Number [facility] DEPARTMENT OF [address] [place] [address] PATHOLOGY AND GENOMIC MEDICINE [place] [facility] [address] [place] [address] HOSPITAL * Gram stain (11/26/2019 4:02 PM CDT) Only the most recent of 2 results within the time period is included. Gram stain Few WBC's [facility] isolate No organisms seen [facility] Comment: HOSPITAL Specimen Information Specimen Source: Peritoneal fluid Specimen Site: Abdomen Specimen Peritoneal fluid - Abdomen Performing Organization Address [facility] [address]/[facility] P arabella Number [facility] [place] [address] PATHOLOGY AND GENOMIC MEDICINE [place] [address] [place] [address] HOSPITAL * Anaerobic culture (11/26/2019 4:02 PM CDT) Only the most recent of 2 results within the time period is included. Pathologist [facility] Anaerobic No anaerobic organisms [place] culture isolate isolated. [facility] Comment: HOSPITAL Specimen Information Specimen Source: Peritoneal fluid Specimen Site: Abdomen Specimen Peritoneal fluid - Abdomen Performing Organization Address City/[facility] [address]/ZIP Code P arabella Number [facility] DEPARTMENT OF [address] [place] [address] PATHOLOGY AND [facility] MEDICINE [address] * Cell count and differential, body fluid (11/26/2019 4:02 PM CDT) Only the most recent of 2 results within the time period is included. Pathologist [facility] Misc fluid type Paracentesis [facility] Color, fluid Yellow [facility] Appearance, Clear [facility] RBC, fluid SEE COMMENTComment: 1+ (0 - /CMM HO USTON 500 RBC/CMM) [facility] Nucleated 229 /CMM [place] cells, [facility] Fluid See Diff [place] mononuclear [facility] Neutrophils, 21 % [facility] Lymphocytes, 7 % [facility] Mesothelial 1 % [place] cells, [facility] Macrophages, 69 % [facility] Plasma cells, 2 % [facility] Specimen Fluid Performing Organization Address [facility] [address]/[facility] P arabella Number [facility] [place] [address] PATHOLOGY [facility] MEDICINE [address] * Protein, misc fluid (11/26/2019 4:02 PM CDT) Only the most recent of 2 results within the time period is included. Fluid type Paracentesis [facility] Protein, fluid 1.0 g/dL [place] Comment: [facility] The reference interval(s) and HOSPITAL other method performance specifications have not been established for this body fluid. The test results must be integrated into the clinical context for interpretation. This test has been modified from the manufacturers instructions. The performance characteristics were determined by [facility] in a manner consistent with CLIA requirements. This test has not been cleared or approved by the U.S. Food and Drug Administration. Specimen Fluid Performing Organization Address City/[facility] [address]/ZIP Code P arabella Number [facility] [place] [address] PATHOLOGY AND GENOMIC MEDICINE [address] * Prothrombin time with INR (11/26/2019 4:30 AM CDT) Only the most recent of 8 results within the time period is included. Prothrombin 18.8 (H) 11.5 - 14.5 sec [facility] INR 1.6 [place] Comment: [facility] International Normalized HOSPITAL Ratio (INR) is a therapeutic monitoring tool for patients who are stable on oral anticoagulant therapy. An INR of 2.0-3.0 is suggested for deep vein thrombosis/pulmonary embolism. Specimen Blood Performing Organization Address City/[facility] [address]/[facility] Code P arabella Number [facility] [place] [address] PATHOLOGY AND [facility] MEDICINE [address] * Urinalysis screen and microscopy, with reflex to culture (11/25/2019 9:05 AM CDT) Specimen site Clean catch [facility] Color, UA Angeline [facility] Appearance, UA Clear [facility] Specific 1.031 1.001 - 1.035 [place] [facility] pH, UA 5.0 5.0 - 8.5 [facility] Protein, UA 1+ (A) Negative [facility] Glucose, UA Negative Negative [facility] Ketones, UA Negative Negative [facility] Bilirubin, UA Positive@UBIL (A) Negative [facility] Blood, UA Negative Negative [facility] Nitrite, UA Negative Negative [facility] Urobilinogen, 4.0 (A) <2.0 [facility] Leukocyte Negative Negative [place] ester[facility]LEVELAND [facility] Epithelial 3 /HPF [place] cells, [facility] WBC, UA 1 0 - 4 /HPF [facility] RBC, UA 1 0 - 5 /HPF [facility] Bacteria, UA None seen None seen [facility] Yeast, UA Few (A) [facility] Yeast with None seen [place] [facility] Hyaline casts, 3 /LPF [facility] Specimen Urine Performing Organization Address City/[facility] [address]/ZIP Code P arabella Number [facility] [place] [address] PATHOLOGY AND GENOMIC MEDICINE [address] * Urine culture (11/25/2019 9:05 AM CDT) Urine culture SEE COMMENTComment: [place] Bacteriuria screen negative. [facility] Specimen Performing Organization Address City/[facility] [address]/[facility] P arabella Number [facility] [place] [address] PATHOLOGY AND [facility] MEDICINE [address] * Phosphorus level (11/25/2019 4:00 AM CDT) Only the most recent of 3 results within the time period is included. Phosphorus 2.0 (L) 2.4 - 4.5 mg/dL [facility] Specimen Blood Performing Organization Address [facility] [address]/[facility] P arabella Number [facility] [place] [address] PATHOLOG[address] * Magnesium level (11/25/2019 4:00 AM CDT) Only the most recent of 3 results within the time period is included. Magnesium 1.5 (L) 1.6 - 2.4 mg/dL [facility] Specimen Blood Performing Organization Address [facility] [address]/[facility] P arabella Number [facility] [place] [address] PATHOLOGY AND [facility] MEDICINE [address] * Bilirubin direct (11/25/2019 4:00 AM CDT) Bilirubin 0.7 (H) 0.0 - 0.3 mg/dL [facility] Specimen Performing Organization Address [facility] [address]/[facility] P arabella Number [facility] [place] [address] PATHOLOGY AND [facility] MEDICINE [address] * Comprehensive metabolic panel (11/25/2019 4:00 AM CDT) Only the most recent of 6 results within the time period is included. Sodium 137 135 - 148 mEq/L [facility] Potassium 3.3 (L) 3.5 - 5.0 mEq/L [facility] Chloride 100 98 - 112 mEq/L [facility] CO2 23 (L) 24 - 31 mEq/L [facility] Anion gap 14@ANIO 7 - 15 mEq/L [facility] BUN 9 8 - 23 mg/dL [facility] Creatinine 0.58 0.50 - 0.90 mg/dL [facility] Glucose 131 (H) 65 - 99 mg/dL [facility] Calcium 7.4 (L) 8.8 - 10.2 mg/dL [facility] Protein 5.4 (L) 6.3 - 8.3 g/dL [place] Comment: [facility] [place] 4.6-7.0 g/dL 1 week 4.4-7.6 g/dL 7 months-1year 5.1-7.3 g/dL 1-2 years 5.6-7.5 g/dL >3 years 6.0-8.0 g/dL 18-150 6.3-8.3 g/dL Albumin 2.4 (L) 3.5 - 5.0 g/dL [facility] A/G ratio 0.8 0.7 - 3.8 [facility] Alkaline 68 35 - 104 U/L [place] phosphatase [facility] AST 29 10 - 35 U/L [facility] ALT 12 5 - 50 U/L [facility] Total bilirubin 1.6 (H) 0.0 - 1.2 mg/dL [facility] Specimen Blood Performing Organization Address City/State/ZIP Code P arabella Number [facility] DEPARTMENT OF [address] [place] [address] PATHOLOGY AND GENOMIC MEDICINE [address] * XR Chest 1 Vw Portable (11/24/2019 11:15 AM CDT) Specimen Narrative Performed At EXAMINATION: XR CHEST 1 VW PORTABLE [facility] CLINICAL HISTORY: r o atelactasis vs pneumonia COMPARISON: None IMPRESSION: An AP radiograph of the chest was submi tted for interpretation. Blunting of the left posterior phrenic sulcus is noted suggesting a small left-sided pleural effusion versus atel ectasis. Atelectasis is noted within the right m idlung. Mild pulmonary vascular congestion vers us reactive airway disease. No right-sided pleural effusion. No pneumothorax or midline shift. The mediastinal contours and cardiac si lhouette are unremarkable. Mild calcified atherosclerotic disease. The bones are unremarkable. [id number] Procedure Note Interface, Radiology Results Incoming - 11/24/2019 11:42 AM CDT EXAMINATION: XR CHEST 1 VW PORTABLE CLINICAL HISTORY: r o atelactasis vs pneumonia COMPARISON: None IMPRESSION: An AP radiograph of the chest was submitted for interpretation. Blunting of the left posterior phrenic sulcus is noted suggesting a small left- sided pleural effusion versus atelectasis. Atelectasis is noted within the right midlung. Mild pulmonary vascular congestion versus reactive airway disease. No right-sided pleural effusion. No pneumothorax or midline shift. The mediastinal contours and cardiac silhouette are unremarkable. Mild calcified atherosclerotic disease. The bones are unremarkable. [id number] Performing Organization Address City/State/[place] [address] * Hemoglobin A1c (11/24/2019 4:22 AM CDT) Hemoglobin A1C 5.8 (H) 4.0 - 5.6 % [place] Comment: [facility] HbA1c cutoffs for diagnosing HOSPITAL diabetes: 4.0% - 5.6% = normal 5.7% - 6.4% = increased risk for diabetes (prediabetes)9 >=6.5% = diabetes9 Goals for glycemic control (ADA 2016) < 7.0% Target for non adults with diabetes. More or less stringent targets may be appropriate for individual patients. <7.5% Target for Children and adolescents with type 1 diabetes. Specimen Blood Performing Organization Address City/State/[facility] Code P arabella Number [facility] DEPARTMENT OF [address] [place] [address] PATHOLOGY AND GENOMIC MEDICINE [place] [address] [place] [address] HOSPITAL * XR Abdomen 1 Vw Portable (11/23/2019 10:48 AM CDT) Only the most recent of 3 results within the time period is included. Specimen Narrative Performed At EXAMINATION: XR ABDOMEN 1 VW PORTABLE [facility] CLINICAL HISTORY: 64 years 1955 e alesha bowel gas pattern COMPARISON: 11/20/2019 IMPRESSION: 1.Nasogastric tube terminates in the re gion of the duodenal bulb. 2.There has been interval improvement i n previous dilated air-filled loops of small bowel. Largest air-filled small b owel loop currently measures 2.9 cm. This suggests some improvement in recently d escribed small bowel obstruction, clinical correlation. Follow-up is advised. 3.There is no plain film evidence of fr ee air. [facility]-[id number] Procedure Note Hm Interface, Radiology Results Incoming - 11/23/2019 12:58 PM CDT EXAMINATION: XR ABDOMEN 1 VW PORTABLE CLINICAL HISTORY: 64 years 1955 eval bowel gas pattern COMPARISON: 11/20/2019 IMPRESSION: 1.Nasogastric tube terminates in the reg ion of the duodenal bulb. 2.There has been interval improvement in previous dilated air-filled loops of small bowel. Largest air-filled small bowel loop currently measures 2.9 cm. This suggests some improvement in recently described small bowel obstruction, clinical correlation. Follow-up is advised. 3.There is no plain film evidence of laura e air. [facility]-[id number] Performing Organization Address City/[facility] [address]/ZIP [place] [address] * Alpha fetoprotein (11/23/2019 4:00 AM CDT) Pathologist [facility] Alpha 6.0 0.0 - 8.3 ng/mL [place] fetoprotein Comment: VOODOO The Fred 8000 AFP immunoassay [facility] was used. Results obtained with different assay methods or kits should not be used interchangeably and may be different. Specimen Serum Performing Organization Address City/[facility] [address]/[facility] P arabella Number [facility] DEPARTMENT OF [address] [place] [address] PATHOLOGY AND GENOMIC MEDICINE [address] * CBC with platelet and differential (11/22/2019 3:45 AM CDT) Only the most recent of 7 results within the time period is included. WBC 6.45 4.50 - 11.00 k/uL [facility] RBC 3.08 (L) 4.20 - 5.50 m/uL [facility] HGB 10.1 (L) 12.0 - 16.0 g/dL [facility] HCT 31.3 (L) 37.0 - 47.0 % [facility] MCV 101.6 (H) 82.0 - 100.0 fL [facility] MCH 32.8 27.0 - 34.0 pg [facility] MCHC 32.3 31.0 - 37.0 g/dL [facility] RDW - SD 56.0 (H) 37.0 - 55.0 fL [facility] MPV 12.6 8.8 - 13.2 fL [facility] Platelet count 77 (L) 150 - 400 k/uL [facility] Nucleated RBC 0.00 /100 WBC [facility] Neutrophils 80.2 (H) 39.0 - 69.0 % [facility] Lymphocytes 9.6 (L) 25.0 - 45.0 % [facility] Monocytes 8.8 0.0 - 10.0 % [facility] Eosinophils 0.9 0.0 - 5.0 % [facility] Basophils 0.2 0.0 - 1.0 % [facility] Immature 0.3Comment: "Immature 0.0 - 1.0 % [place] granulocytes granulocytes" (promyelocytes, [facility] myelocytes, metamyelocytes) HOSPITAL Specimen Blood Performing Organization Address City/[facility] [address]/[facility] [place] [address] PATHOLOGY AND GENOMIC MEDICINE [address] * Lactic acid level (11/21/2019 4:00 AM CDT) Only the most recent of 3 results within the time period is included. Pathologist [facility] Lactic acid 2.9 (H) 0.5 - 2.2 mmol/L [facility] Specimen Blood Performing Organization Address City/[facility] [address]/[facility] [place] [address] PATHOLOGY AND GENOMIC MEDICINE [address] * Surgical pathology request (11/20/2019 6:26 PM CDT) [facility] DEPARTMENT OF PATHOLOGY AND GENOMIC MEDICINE Surgical See link below for PDF Lab [facility] DEPART MENT pathology Report OF PATHOLOGY report AND GENOMIC MEDICINE Result status This is Final Report for [facility] DEPARTME NT [id number] OF PATHOLOGY AND GENOMIC MEDICINE Specimen Performing Organization Address City/[facility] [address]/[facility] P arabella Number [facility] [place] [address] PATHOLOGY AND GENOMIC MEDICINE * Airway (11/20/2019 5:41 PM CDT) Narrative Performed At Randa Prabhakar CRNA 10/24 5:45 PM Airway Date/Time: 11/20/2019 5:05 PM Performed by: Randa Prabhakar CRNA Authorized by: Allen Loco MD Location: OR Urgency: Elective Difficult Airway: No Anesthesiologist: Allen Loco MD Resident/[employer]AA: Randa Prabhakar CRNA Performed by: resident/[employer]/AA Preoxygenated with 100% O2: Yes C-spine Precautions Maintained Througho ut: Yes Mask Ventilation: Not attempted Final Airway Type: Endotracheal airwa y Final Endotracheal Airway: ETT Cuffed: Yes Technique Used: Direct laryngoscopy Devices/Methods Used in Placement: In tubating stylet Insertion Site: Oral Blade Type: Pastor Laryngoscope Blade/Videolaryngoscope Bl antoine Size: 2 ETT Size (mm): 7.0 Cuff at minimum occlusion pressure: Yes Measured from: Lips ETT to Lips (cm): 22 Placement Verified by: CO2 detection, d irect visualization and equal breath sounds Laryngoscopic view: Grade I - full vi ew of glottis Rapid Sequence Induction (RSI): Yes Number of Attempts at Approach: 1 Patient preoxygenated > 3 minutes. DL X 1 with Pastor 2 blade by [employer]; grade I view obtained. 7.0 ETT advanced through vocal cords with direct visualization, cuff to occlusive seal, placement confirmed with bilateral chest rise, +mist in ETT, and +etCO2. A traumatic intubation-lips and gums (patient edentulous). OGT easily placed for case duration, stomach decompressed, and OGT placed to gravity . * Potassium, syringe (11/20/2019 3:28 PM CDT) Potassium, 3.2 (L) 3.5 - 5.0 mEq/L [facility] Specimen Blood Performing Organization Address City/[facility] [address]/[facility] [place] [address] PATHOLOGY AND GENOMIC MEDICINE [address] * Potassium level (11/20/2019 12:04 PM CDT) Potassium 2.8 (LL) 3.5 - 5.0 mEq/L [facility] Specimen Performing Organization Address City/[facility] [address]/[facility] Code P arabella Number [facility] [place] [address] PATHOLOGY AND GENOMIC MEDICINE [address] * Type and screen (11/20/2019 11:40 AM CDT) ABO grouping O [facility] Rh type POS [facility] Antibody screen NEG [place] (gel) [facility] Specimen Blood Performing Organization Address [facility] [address]/[facility] P arabella Number [facility] [place] [address] PATHOLOGY AND [facility] MEDICINE [address] * Lactic acid level, SEPSIS - Now and repeat 2x every 3 hours (11/20/2019 4:05 AM CDT) Only the most recent of 3 results within the time period is included. Pathologist [facility] Lactic acid 2.8 (H) 0.5 - 2.2 mmol/L [facility] Specimen Blood Performing Organization Address [facility] [address]/[facility] P arabella Number [facility] [place] [address] * COVID-19 qualitative PCR (11/19/2019 11:34 PM CDT) Only the most recent of 2 results within the time period is included. Pathologist [facility] Interpretation Negative results do not DUNCAN preclude 2019-nCoV infection [facility] and should not be used as the HOSPITAL sole basis for treatment or other patient management decisions. Negative results must be combined with clinical observations, patient history, and epidemiological information. COVID-19 Not-Detected Not-Detected [facility] qualitative PCR [facility] result HOSPITAL COVID-19 See link below for PDF Lab [facility] qualitative PCR ReportComment: Case Number: [facility] [id number] HOSPITAL Specimen Nasopharyngeal swab Performing Organization Address [facility] [address]/[facility] P arablela Number [facility] [place] [address] PATHOLOGY AND GENOMIC MEDICINE [address] * Partial thromboplastin time, activated (11/19/2019 11:34 PM CDT) Only the most recent of 2 results within the time period is included. PTT 33.9 23.0 - 36.0 sec [facility] Comment: VOODOO PTT therapeutic range for HOSPITAL unfractionated heparin is 61.0-112.0 seconds which corresponds to Anti-Xa 0.3-0.7 U/ml. Specimen Blood Performing Organization Address City/[facility] [address]/[facility] Code P arabella Number [facility] [place] [address] PATHOLOGY AND [facility] MEDICINE [address] * Lipase level (11/19/2019 11:34 PM CDT) Lipase 14 13 - 60 U/L [facility] Specimen Blood Performing Organization Address City/[facility] [address]/[facility] P arabella Number [facility] [place] [address] PATHOLOGY AND [facility] MEDICINE [address] * Ammonia level (11/19/2019 11:34 PM CDT) Ammonia 66 (H) 11 - 51 umol/L [facility] Specimen Blood Performing Organization Address [facility] [address]/[facility] P arabella Number [facility] [place] [address] PATHOLOGY AND [facility] MEDICINE [address] * Alcohol level, blood (11/19/2019 11:34 PM CDT) Alcohol None Detected mg/dL [facility] Comment: [facility] None Detected Legal Intoxication in [place] 80 mg/dL (0.08%) - Whole Blood Toxic Concentration 200 mg/dL (0.2%) Potentially Fatal 350 - 500 mg/dL (0.35 - 0.5%) Alcohol percent None Detected % [facility] Specimen Blood Performing Organization Address [facility] [address]/[facility] P arabella Number [facility] [place] [address] PATHOLOGY AND [facility] MEDICINE [address] * US Abdomen Complete (10/09/2019 3:05 PM CDT) Specimen Narrative Performed At EXAM: US ABDOMEN COMPLETE [facility] CLINICAL HISTORY: CIRRHOSIS, HCC scre ening COMPARISON: No TECHNIQUE: Complete abdominal ultrasoun d obtained. FINDINGS: Liver is truncated, lobulated in contou rs and heterogeneous in echotexture indicating cirrhosis. No focal lesion i dentified.. Layering sludge in the gallbladder which is borderline distend ed. Cholelithiasis may also be present. Borderline wall thickening is likely secondary to the a scites. No Leos sign identified. Main portal vein is patent and normal in siz e, 11 mm. Common bile duct 6 mm within normal range.. . Pancreas mostly obscured by bowel gas. Spleen borderline enlarged, 15 cm without focal lesion. Renal survey images show kidneys measur e 9.7 cm on the right and 10.9 cm on the left with no hydronephrosis on either s kenny. Abdominal aorta and IVC mostly obscured by bowel gas. Small amount of ascites. No pleural effusion IMPRESSION: 1. Cirrhosis and portal hypertension wi thout evidence of HCC. 2.Sludge and possibly stones in the gal lbladder, which is borderline distended likely from fasting. The borderline gal lbladder wall thickening is likely from the ascites. No sonographic Elos sign . 3.Other findings as above [id number] Procedure Note Hm Interface, Radiology Results Incoming - 10/09/2019 4:28 PM CDT EXAM: US ABDOMEN COMPLETE CLINICAL HISTORY: CIRRHOSIS, HCC screening COMPARISON: No TECHNIQUE: Complete abdominal ultrasound obtained. FINDINGS: Liver is truncated, lobulated in contours and heterogeneous in echotexture indicating cirrhosis. No focal lesion identified.. Layering sludge in the gallbladder which is borderline distended. Cholelithiasis may also be present. Borderline wall thickening is likely secondary to the ascites. No Leos sign identified. Main portal vein is patent and normal in size, 11 mm. Common bile duct 6 mm within normal range.. . Pancreas mostly obscured by bowel gas. Spleen borderline enlarged, 15 cm without focal lesion. Renal survey images show kidneys measure 9.7 cm on the right and 10.9 cm on the left with no hydronephrosis on either side. Abdominal aorta and IVC mostly obscured by bowel gas. Small amount of ascites. No pleural effusion IMPRESSION: 1. Cirrhosis and portal hypertension wit hout evidence of HCC. 2.Sludge and possibly stones in the gall bladder, which is borderline distended likely from fasting. The borderline gallbladder wall thickening is likely from the ascites. No sonographic Leos sign. 3.Other findings as above [id number] Performing Organization Address City/State/ZIP Code P arabella Number [facility] [address] [place] [address] * Albumin, misc fluid (10/09/2019 2:20 PM CDT) Fluid type Ascitic [facility] Albumin, fluid 0.5 g/dL [facility] Comment: VOODOO The reference interval(s) and HOSPITAL other method performance specifications have not been established for this body fluid. The test results must be integrated into the clinical context for interpretation. This test has been modified from the manufacturers instructions. The performance characteristics were determined by [facility] in a manner consistent with CLIA requirements. This test has not been cleared or approved by the U.S. Food and Drug Administration. Specimen Fluid Performing Organization Address City/[facility] [address]/[facility] P arabella Number [facility] [place] [address] PATHOLOGY AND [facility] MEDICINE [address] * Thyroid stimulating hormone (10/09/2019 5:41 AM CDT) TSH 0.59 0.27 - 4.20 uIU/mL [facility] Specimen Blood Performing Organization Address [facility] [address]/[facility] [place] [address] PATHOLOGY AND [facility] MEDICINE [address] * T4, free (10/09/2019 5:41 AM CDT) T4, free 1.5 0.9 - 1.7 ng/dL [facility] Specimen Blood Performing Organization Address [facility] [address]/[facility] P arabella Number [facility] [place] [address] PATHOLOGY AND [facility] MEDICINE [address] after 12/30/2018 Insurance Type Payer Benefit Subscriber ID Effective Phone Address Plan / Dates Group HMO HUMANA MEDICARE HUMANA O [id number] 2019-P GOLD PLUS resent MEDICARE [facility] [address] [place] [id number] Advance Directives For more information, please contact: [phone] Patient [employer] Explanation Type Date Recorded Advance Directives, 11/19/2019 10:54 PM Living Will and Medical Power of Leave Coordinator
--- OUTSIDE RECORDS SUMMARY | 2019-12-31 15:07 | XMS REPORT | Continuity of Care Document ---
Author Author [facility] t Organization [facility] Address 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 Role Phone Asked, Pcp No PCP Unavailable HARRISON LOPEZ Attphys Unavailable Cedrick RN, Kyra Attphys Unavailable Alex Gandara DO Attphys Michael MATSON, Kait Attphys Rasheed MATSON, Asaf Dhillon Attphys Julio MATSON, Alex Odom Attphys Beronica MATSON, Allen Attphys Raj DANG, Madyson Attphys Fady Carlisle MD Attphys Mike Lemons Attphys Unavailable Robin MATSON, Fady Lay Attphys Cheli MATSON, Layla Lu Attphys Devyn DAVENPORT, Wendy Attphys Unavailable Bryan ROB, Vivien Attphys Unavailable Izzy [facility], Consuelo Attphys Unavailable Soren DAVENPORT, Keegan Patten Attphys Unavailable SAMI, ADAM Attphys Unavailable Curtis RN, Gi Attphys Unavailable Kevin MATSON, Mitzi Tate Attphys [facility], Raymond Attphys Brian MATSON, Mili Attphys Chan CARLSON, A Kusum Attphys Yoel Fellow(), Jitendra Attphys [phone] Clarice MATSON, L Enedelia Attphys Paradise MATSON, Ольга Elam Attphys Brock Fellow(), O Uziel Attphys [phone] Alayna ROB, Mildred Jackson Attphys Unavailable Brady MATSON, Lala Kumar Attphys Unavailable KAIT RODRIGUEZ Admphys Unavailable LINA GUZMÁN Admphys Unavailable CEDRICK, Stella OSPINA Admphys Unavailable Payers Payer Name Policy Type Policy Number Effective Date Expiration Date S ource [facility] GOLD PLUS [id number] [id number] 2019 00:00:00 [facility] OONxxxxxxxx03/25/[id number] [place] [id number] xxxxxxxx 2019 00:00:00 2078 23:59:59 Psychiatric [id number] [id number] [place] [address] xxxxxx 2019 00:00:00 2029 2 3:59:59 [facility] Problems Condition Name Condition Details Condition Category Status Onset Date Resolution Date Last Treatment Date Treating Clinician Comments Source Small bowel obstruction Small bowel obstruction Disease Active 2019-11-20 00:00:[address] Ascites Ascites Disease Active 2019-08-28 00:00:00 Clemente Burns 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 Active 2019-08-28 00:00:00 Clemente Burns Hepatitis C carrier Hepatitis C carrier Disease Active 2019-08-28 00:00 :00 Clemente Burns Benign essential hypertension Benign Essential Hypertension Problem Active 2019-04-27 00:00:00 [facility] Hernia of abdominal cavity Hernia of Abdominal Cavity Problem Active 2019-04-27 00:00:00 [facility] Disease of liver Disease of Liver Problem Active 2019-04-27 00:00:00 [facility] Umbilical hernia Umbilical hernia Disease Active 2018-03-25 00:00:00 [facility] Strangulated umbilical hernia Strangulated umbilical hernia Disease Active 2018-03-24 00:00:00 Overview: Ad ded automatically from request for surgery [id number] [facility] Portal vein thrombosis Portal vein thrombosis Disease Active 2018-01-07 00:00:00 [facility] 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 2018-01-07 00:00:00 [facility] Edema Edema Disease Active 2016-10-25 00:00:00 [facility] Myalgia Myalgia Disease Active 2011-04-23 00:00:00 [facility] Costochondritis Costochondritis Disease Active 2011-04-23 00:00:00 [facility] Depression Depression Disease Active 2010-06-15 00:00:00 [facility] Tobacco dependence Tobacco dependence Disease Active 2010-05-11 00:00:0 0 [facility] Hypothyroidism Hypothyroidism Disease Active 2010-03-02 00:00:00 [facility] Dysthymia Dysthymia Disease Active Michael Burns Hypertension Hypertension Disease Active [facility] Opiate dependence Opiate dependence Disease Active [facility] HCV infection HCV infection Disease Active [facility] 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 Dis ease Active [facility] Generalized edema Generalized edema Disease Active [facility] Polysubstance abuse Polysubstance abuse Disease Active [facility] Chronic hepatitis C without hepatic coma Chronic hepat itis C without hepatic coma Disease Active [facility] Essential hypertension Essential hypertension Disease Active [facility] Acquired hypothyroidism Acquired hypothyroidism Disease Active [facility] Other partial intestinal obstruction Other partial intestina l obstruction Disease Active [facility] Abdominal pain Abdominal pain Disease Active [facility] S/P exploratory laparotomy S/P exploratory laparotomy Disease Active [facility] Hyperglycemia Hyperglycemia Disease Active [facility] At risk for hypoglycemia At risk for hypoglycemia Disease Active [facility] Hemoglobin A1c between 7.0% and 9.0% Hemoglobin A1c between 7.0% and 9.0% Disease Active [facility] Type 2 diabetes mellitus with hyperglyce marla, without long-term current use of insulin Type 2 diabetes mellitus with hyperglyce marla, without long-term current use of insulin Disease Active [facility] Unilateral recurrent inguinal hernia without obstructi on or gangrene Unilateral recurrent inguinal hernia without obstruction or gangrene Disease Active [facility] Other ascites Other ascites Disease Active [facility] Allergies, Adverse Reactions, Alerts Allergy Name Allergy Type Status Severity Reaction(s) Onset Date Inacti ve Date Treating Clinician Comments Source No Known Allergies DA Active U 2015-04-29 00:00:00 [facility] Family History Family Member Diagnosis Comments Start Date Stop Date Source Natural brother Psychiatry [facility] Natural father Psychiatry [facility] Maternal grandmother Hypertension [facility] Maternal uncle Other [facility] Maternal uncle Psychiatry [facility] Natural mother Hypertension [facility] Natural mother Psychiatry [facility] Social History Social Habit Start Date Stop Date Quantity Comments Source History of tobacco use Cigarette Smoker Cornejo Rastafari History SDOR Alcohol Std Drinks Sidney Rastafari History SDOH Alcohol Binge Sidney Rastafari Sex Assigned At [facility] Tobacco use and exposure 2019-11-23 00:00:00 2019-11-23 00:00:00 Esequiel barnett used Sidney Rastafari History SDOH Alcohol Frequency 2019-11-20 00:00:00 2019-11-20 00:00:0 0 1 Sidney Rastafari Cigarettes smoked current (pack per day) - Reported 00:00:00 2019-03-10 00:00:00 [facility] Cigarette pack-years 2019-03-10 00:00:00 2019-03-10 00:00:00 [facility] Alcohol intake 2019-03-10 00:00:00 2019-03-10 00:00:00 Ex-drinker (fi nding) [facility] SDOH Food Worry 2017-06-13 00:00:00 2017-06-13 00:00:00 2 [facility] History SDOH Food Scarcity 2017-06-13 00:00:00 2017-06-13 00:00:00 2 [facility] Tobacco Comment 2010-06-29 00:00:00 2010-06-29 00:00:00 had cut back to less than half a pack daily on wellbutrin once daily; now smoking again a pack or more a day [facility] Alcohol Comment 2010-06-15 00:00:00 2010-06-15 00:00:00 once ivone ry 2 years has 4 x 12 oz beers; last drink 02/10/2010 in suicide attempt drank a bottle of liquor with other substances [facility] Smoking Status Start Date Stop Date Source Light Tobacco Smoker [facility] Current every day smoker 2019-03-10 00:00:00 [facility] Medications Ordered Medication Name Filled Medication Name Start Date Stop Da te Current Medication? Ordering Clinician Indication Dosage Frequency Signature (SIG) Comments Components Source furosemide (LASIX) 40 mg tablet 2019-11-29 00:00:00 23:59:00 No 40mg QD Take 1 tablet (40 mg total) by mouth daily for 30 days. Clemente Burns spironolactone (ALDACTONE) 100 MG tablet 2019-11 00:00:00 2019-12-29 23:59:00 No 100mg QD Take 1 tablet (100 mg total) by mouth daily for 30 days. Clemente Burns furosemide (LASIX) 40 mg tablet 2019-11-28 17:28:37 00:00:00 No 40mg Q.5D Take 40 mg by mouth 2 (two) times a day. Clemente Burns glipiZIDE (GLUCOTROL) 10 MG tablet 2019-11-28 17:28:37 00:00:00 No 10mg Q.5D Take 10 mg by mouth 2 (two) times a day before meals. Clemente Burns potassium chloride (MICRO-K) 10 MEQ CR capsule 2 17:28:37 2019-11-28 00:00:00 No 10meq Take 10 mEq by mouth daily. Clemente Burns insulin GLARGINE (LANTUS) 100 unit/mL injection (vial) 2019-11-28 17:28:35 Yes 10U Q.5D Inject 10 Units under the skin 2 (two) t imes a day. Clemente Burns levothyroxine (SYNTHROID) 100 mcg tablet 2019-11-28 17:28:35 Yes 100ug QD Take 100 mcg by mouth daily. Michael Burns lactulose 10 gram/15 mL (15 mL) solution 2019-11-28 17:28:35 Yes 10g Q.[id number] Take 10 g by mouth 3 (three) times a day as needed. Clemente Burns hydrOXYzine (ATARAX) 25 MG tablet 2019-11-28 17:28:35 Yes 25mg Q6H Take 25 mg by mouth every 6 (six) hours as needed for itching. Clemente Burns gabapentin (Neurontin) 100 mg capsule 2019-11-28 00:00 :00 2019-12-28 23:59:00 No 200mg Q.[id number] Take 2 capsules (200 mg total) by mouth 3 (three) times a day for 30 days. Clemente Burns amoxicillin-pot clavulanate (Augmentin) 875-125 mg per table t 2019-11-28 00:00:00 2019-12-12 23:59:00 No 1{tbl} Q.5D Take 1 tablet by mouth 2 (two) times a day for 14 days. Clemente hunter HYDROcodone-acetaminophen (NORCO) 5-325 mg per tablet 2019-11-28 00:00:00 2019-12-08 23:59:00 No acute pain 1{tbl} Q4H Take 1 tablet by mouth every 4 (four) hours as needed for moderate pain for up to 10 days .acute pain. Max Daily Amount: 6 tablets Clemente cartagena pantoprazole (PROTONIX) 40 MG EC tablet 08:56:50 2019-11-20 00:00:00 No 40mg QD Take 40 mg by mouth daily. Clemente Burns spironolactone (ALDACTONE) 100 MG tablet 2019-10 07:42:42 2019-11-20 00:00:00 No 100mg QD Take 100 mg by mouth daily. Clemente Burns spironolactone (ALDACTONE) 100 mg tablet 2019-02 00:00:00 2019-06-08 23:59:00 No Periumbilical abdominal pain 200mg QD Take 2 tablets by mouth daily for 90 days. [facility] glipiZIDE (GLUCOTROL) 10 mg tablet 2019-03-02 00:00:00 Yes Newly diagnosed diabetes 5mg Q.5D Take 0.5 tablets by mouth 2 times daily (before meals). [facility] furosemide (LASIX) 40 mg tablet 2019-02-25 00:00:00 00:00:00 No Periumbilical abdominal pain 40mg QD Take 1 tablet by mo uth daily for 90 days. [facility] spironolactone (ALDACTONE) 100 mg tablet 2019-02 11:43:46 2019-02-24 00:00:00 No 100mg QD Take 100 mg by mouth daily. [facility] lactulose (CHRONULAC) 10 gram/15 mL oral solution 2019-02-24 00:00:00 Yes Increased ammonia level 20g Take 30 mL by mouth 3 times daily. [facility] spironolactone (ALDACTONE) 100 mg tablet 2019-02 00:00:00 2019-03-10 00:00:00 No Periumbilical abdominal pain 100mg QD Take 1 tablet by mouth daily for 90 days. [facility] lactulose (CHRONULAC) 10 gram/15 mL oral solution 2019-01-09 00:00:00 2019-02-24 00:00:00 No Increased ammonia level 20g Take 30 mL by mouth 3 times daily. [facility] tropicamide (MYDRIACYL) 0.5 % ophthalmic solution 2019-01-09 00:00:00 2019-01-09 23:59:00 No Type 2 diabetes joanne itus with hyperglycemia, without long-term current use of insulin 1[drp] Instill 1 Drop in each eye once as needed for up to 1 dose (for poor retina scan image). [facility] nicotine (NICODERM CQ) 21 mg/24 hr patch 2018-09-19 00:00:00 Yes Tobacco dependence 1{patch} Apply 1 Patch to skin as directed every 24 hour s. [facility] hydrocortisone 1 % ointment 2018-09-19 00:00:00 Yes Skin lesion Q.5D Apply to affected area 2 times daily. [facility] hydrOXYzine (ATARAX) 25 mg tablet 2018-09-10 00:00:00 Yes Itching 25mg Take 1 tablet by mouth 3 times daily as needed for Itching. [facility] glipiZIDE (GLUCOTROL) 10 mg tablet 2018-07-01 00:00:00 201 12-04-05 00:00:00 No Newly diagnosed diabetes 5mg Q.5D Take 0. 5 tablets by mouth 2 times daily (before meals). [facility] traMADol (ULTRAM) 50 mg tablet 2018-05-13 00:00:00 3 00:00:00 No Strangulated umbilical hernia 50mg Take 1 tab let by mouth 2 times daily as needed for Pain. [facility] levothyroxine (SYNTHROID) 75 mcg tablet 2018-04-15 00:00:00 Yes Cirrhosis of liver with ascites, unspecified hepatic cirrhosis type 75ug QD Take 1 tablet by mouth every morning (before breakfast). [facility] FLUoxetine (PROZAC) 10 mg capsule 2018-04-15 00:00:00 Ye s Mood disorder 10mg QD Take 1 capsule by mouth daily. [facility] acetaminophen-codeine (TYLENOL/CODEINE #3) 300-30 mg per tab let 2018-03-28 00:00:00 2019-02-24 00:00:00 No Strangulated umbilical hernia 1{tbl} Take 1 tablet by mouth every 6 hours as needed for Pain. [facility] blood glucose meter (PRECISION XTRA GLUCOMETER) 2018-03-27 0 0:00:00 Yes New onset type 2 diabetes mellitus Use as directed.. [facility] blood glucose (PRECISION XTRA TEST STRIPS) test strips 2018-03-27 00:00:00 Yes New onset type 2 diabetes mellitus Use 2 times weekly (once per day on Sat,) to test blood sugar. [facility] lancets 28 gauge 2018-03-27 00:00:00 Yes New onset type 2 diabetes mellitus Use 2 times weekly as directed. [facility] Buprenorphine-Naloxone (SUBOXONE) 8-2 mg Subl 2010-07-13 00: 00:00 Yes Opiate dependence 8mg Place 8 mg under ton fozia As directed. Place one strip under tongue in the morning and half a stip under the tongue in the evening for 4 days then half a strip under the tongue twice daily for 3 days then half a strip under the tongue at bedtime only for 4 days then a quarter of strip under the tongue at bedtime for 4 days then stop medicineDEA: [id number] and [id number]: [id number] [facility] furosemide 40 mg tablet Take 1 tablet every day by ora l route for 90 days. furosemide 40 mg tablet Take 1 tablet every day by oral route for 90 days. No furosemide 40 m g tablet Take 1 tablet every day by oral route for [address] [facility] ice glipizide 1/2 pill twice daily glipizide 1/2 pill twice daily No glipizide 1/2 pill twice daily [facility] hydroxyzine HCl 25 mg tablet Take 1 tabl et 3 times a day by oral route for 30 days. hydroxyzine HCl 25 mg tablet Take 1 tabl et 3 times a day by oral route for 30 days. No hydroxyzine HC l 25 mg tablet Take 1 tablet 3 times a day by oral route for 30 days. [facility] lactose (bulk) 3 times daily lactose (bulk) 3 times daily N o lactose (bulk) 3 times daily [facility] levothyroxine 100 mcg tablet Take 1 tablet every day b y oral route. levothyroxine 100 mcg tablet Take 1 tablet every day by oral route. No levothyroxine 100 mcg tablet Take 1 tablet every day b y oral route. [facility] levothyroxine 75 mcg tablet Take 1 tablet every day by oral route. levothyroxine 75 mcg tablet Take 1 tablet every day by oral route. No 1 Q1D levothyroxine 75 mcg tablet Take 1 tablet every day by oral route. [facility] losartan 25 mg tablet Take 1 tablet every day by oral route. losartan 25 mg tablet Take 1 tablet every day by oral route. No losartan 25 mg tablet Take 1 tablet every day by oral route. [facility] potassium chloride ER 10 mEq capsule,ext ended release Take 1 capsule every day by oral route. potassium chloride ER 10 mEq capsule,ext ended release Take 1 capsule every day by oral route. No potassium chloride ER 10 mEq capsule,extended release Take 1 capsule every day by oral route. [facility] spironolactone 100 mg tablet Take 1 tablet every day b y oral route for 90 days. spironolactone 100 mg tablet Take 1 tablet every day by oral route for 90 days. No spironolac tone 100 mg tablet Take 1 tablet every day by oral route for [address] [facility] ice Suboxone 8 mg-[address] 1 film every day by sublingual route for 30 days. Suboxone 8 mg-[address] 1 film every day by sublingual route for 30 days. No Suboxone 8 mg-[address] 1 film every day by sublingual route for 30 days. [facility] triamcinolone acetonide 0.1 % topical cr eam APPLY A THIN LAYER TO THE AFFECTED AREA(S) BY TOPICAL ROUTE 2 TIMES PER DAY triamcinolone acetonide 0.1 % topical cream APPLY A THIN LAYER TO THE AFFECTED AREA(S) BY TOPICAL ROUTE 2 TIMES PER DAY No triamcinolone ac etonide 0.1 % topical cream APPLY A THIN LAYER TO THE AFFECTED AREA(S) BY TOPICAL ROUTE 2 TIMES PER DAY [facility] Immunizations Ordered Immunization Name Filled Immunization Name Date Status Comments Source Tdap (Tetanus Toxoid, Reduced Diphtheria Toxoid And Acellular Pertussis, Absorbed) 2019-01-09 00:00:[address] [facility] Influenza, Vaccine<FLUCELVAX>(Multi-Dose) 2019-01-09 00:00 :00 [facility] PPV 23 (Pneumococcal Polysaccharide 23 Valent) 2018-12 00:00:00 [facility] Influenza, Vaccine<FLUCELVAX>(Multi-Dose) 2018-01-06 00:00 :00 [facility] Vital Signs Vital Name Observation Time Observation Value Comments Source Height 2019-07-08 00:00:00 59 [in_i] [facility] BP Diastolic 2019-04-27 00:00:00 96 mm[Hg] [facility] Height 2019-04-27 00:00:00 59 [in_i] [facility] BMI (Body Mass Index) 2019-04-27 00:00:00 21 kg/m2 [facility] BP Systolic 2019-04-27 00:00:00 158 mm[Hg] [facility] Body Weight 2019-04-27 00:00:00 104 [lb_av] [facility] Systolic blood pressure 2019-11-28 11:39:33 112 mm[Hg] Clemente Burns Diastolic blood pressure 2019-11-28 11:39:33 66 mm[Hg] Clemente Burns Heart rate 2019-11-28 11:39:33 78 /min Clemente Burns Body temperature 2019-11-28 11:39:33 36.33 Kiya [place] [facility]ast[facility] Respiratory rate 2019-11-28 11:39:33 17 /min [place] [facility] Oxygen saturation in Arterial blood by Pulse oximetry 11-27 11:39:33 100 /min Clemente Burns Body height 2019-11-20 14:15:00 149.9 cm Cornejo Rastafari Body weight 2019-11-20 14:15:00 45.813 kg Clemente Burns BMI 2019-11-20 14:15:00 20.40 kg/m2 Cornejo Rastafari Systolic blood pressure 2019-04-02 13:00:00 182 mm[Hg] [facility] Diastolic blood pressure 2019-04-02 13:00:00 95 mm[Hg] [facility] Heart rate 2019-04-02 13:00:00 78 /min [facility] Body temperature 2019-04-02 13:00:00 36.89 [facility]ya [facility] Respiratory rate 2019-04-02 13:00:00 18 /min [facility] Oxygen saturation in Arterial blood by Pulse oximetry 04-02 13:00:00 98 /min [facility] Body height 2019-04-02 08:00:00 149.9 cm [facility] Body weight 2019-04-02 08:00:00 50.803 kg [facility] BMI 2019-04-02 08:00:00 22.62 kg/m2 [facility] Procedures Procedure Date / Time Performed Performing Clinician Sourc e POC GLUCOSE 2019-11-28 11:40:00 Ilene Kim Meth odist POC GLUCOSE 2019-11-28 08:57:00 Ilene Kim Meth odist POC GLUCOSE 2019-11-28 08:03:00 Ilene Kim Meth odist CBC HEMOGRAM 2019-11-28 05:30:00 Raghav Lopez Meth odist BASIC METABOLIC PANEL 2019-11-28 05:30:00 Raghav Lopez n Rastafari HEPATIC FUNCTION PANEL 2019-11-28 05:30:00 Raghav Lopez on Rastafari ESTIMATED GFR 2019-11-28 05:30:00 Raghav Lopez Meth odist POC GLUCOSE 2019-11-28 05:11:00 Ilene Kim Meth odist POC GLUCOSE 2019-11-28 02:04:00 Ilene Kim Meth odist POC GLUCOSE 2019-11-27 22:10:00 Ilene Kim Meth odist POC GLUCOSE 2019-11-27 18:01:00 Ilene Kim Meth odist MRI ABDOMEN W WO CONTRAST 2019-11-27 17:08:35 Mya Sanchez POC GLUCOSE 2019-11-27 11:38:00 Ilene Kim Meth odist POC GLUCOSE 2019-11-27 07:52:00 Ilene Kim Meth odist BASIC METABOLIC PANEL 2019-11-27 02:31:00 Raghav Lopez n Rastafari HEPATIC FUNCTION PANEL 2019-11-27 02:31:00 Raghav Lopez on Rastafari ESTIMATED GFR 2019-11-27 02:31:00 Raghav Lopez Meth odist CBC HEMOGRAM 2019-11-27 02:10:00 Raghav Lopez odcinthya BLOOD CULTURE, AEROBIC & ANAEROBIC 2019-11-27 02:05:[address] ABDOMEN PELVIS W CONTRAST 2019-11-26 21:52:53 Ilene Kim POC GLUCOSE 2019-11-26 20:41:00 Ilene Kim Meth odist POC GLUCOSE 2019-11-26 16:58:00 Ilene Kim Meth odcinthya US ABDOMINAL PARACENTESIS IMAGING 2019-11-26 16:28:13 Mya Glover AEROBIC CULTURE 2019-11-26 16:02:00 Mya Sanchez ANAEROBIC CULTURE 2019-11-26 16:02:00 Mya Sanchez GRAM STAIN 2019-11-26 16:02:00 Mya Sanchez PROTEIN, MISC FLUID 2019-11-26 16:02:00 Ilene Kim CELL COUNT AND DIFFERENTIAL, BODY FLUID 2019-11-26 16:02:00 Ilene Pace POC GLUCOSE 2019-11-26 12:25:00 Ilene Kim Meth odist POC GLUCOSE 2019-11-26 08:31:00 Ilene Kim Meth odist CBC HEMOGRAM 2019-11-26 04:30:00 JohnRodney kendallbruna Cornejo Meth odist PROTHROMBIN TIME WITH INR 2019-11-26 04:30:00 Mya Sanchez Rastafari BASIC METABOLIC PANEL 2019-11-26 04:00:00 John Raghav Mckinney n Rastafari HEPATIC FUNCTION PANEL 2019-11-26 04:00:00 John Raghav Alfaro on Rastafari ESTIMATED GFR 2019-11-26 04:00:00 JohnRodneybruna Cornejo Meth odist POC GLUCOSE 2019-11-25 22:24:00 Ilene Kim Meth odist POC GLUCOSE 2019-11-25 17:12:00 Ilene Kim Meth odist POC GLUCOSE 2019-11-25 11:08:00 Ilene Kim Meth odist URINE CULTURE 2019-11-25 09:05:00 Ilene Kim Meth odist URINALYSIS SCREEN AND MICROSCOPY, WITH REFLEX TO CULTURE 202 09:05:00 Kary Seth Rastafari POC GLUCOSE 2019-11-25 08:43:00 Ilene Kim Meth odist BLOOD CULTURE, AEROBIC & ANAEROBIC 2019-11-25 06:55:00 Kary Seth BLOOD CULTURE, AEROBIC & ANAEROBIC 2019-11-25 06:15:00 Kary Seth Rastafari MAGNESIUM LEVEL 2019-11-25 04:00:00 Lavern Fleming odist PHOSPHORUS LEVEL 2019-11-25 04:00:00 Lavern Fleming Met hodist COMPREHENSIVE METABOLIC PANEL 2019-11-25 04:00:00 Lavern Fleming BILIRUBIN DIRECT 2019-11-25 04:00:00 John Raghav Cornejo Met hodist ESTIMATED GFR 2019-11-25 04:00:00 JohnRodneybruna Cornejo Meth odist CBC HEMOGRAM 2019-11-25 03:20:00 John Raghav Cornejo Meth odist PROTHROMBIN TIME WITH INR 2019-11-25 03:20:00 Mya Sanchez Rastafari POC GLUCOSE 2019-11-24 21:03:00 Ilene Kim Meth odist POC GLUCOSE 2019-11-24 15:57:00 Ilene Kim Meth odist POC GLUCOSE 2019-11-24 11:24:00 Ilene Kim Meth odist XR CHEST 1 VW PORTABLE 2019-11-24 11:15:33 DorindaKary Elida allen Rastafari POC GLUCOSE 2019-11-24 07:59:00 JulioIlene Meth odist CBC HEMOGRAM 2019-11-24 04:22:00 Raghav Lopez Meth odist BASIC METABOLIC PANEL 2019-11-24 04:22:00 Raghav Lopez n Rastafari HEPATIC FUNCTION PANEL 2019-11-24 04:22:00 Raghav Lopez on Rastafari HEMOGLOBIN A1C 2019-11-24 04:22:00 Ilene Kim Meth odist ESTIMATED GFR 2019-11-24 04:22:00 Ilene Kim Meth odist PROTHROMBIN TIME WITH INR 2019-11-24 04:20:00 Mya Sanchez Sidney Rastafari POC GLUCOSE 2019-11-24 04:00:00 Ilene Kim Meth odist POC GLUCOSE 2019-11-23 23:19:00 JulioIlene Meth odist POC GLUCOSE 2019-11-23 20:22:00 JulioIlene Meth odist BASIC METABOLIC PANEL 2019-11-23 17:08:00 Chayo Domingo Rastafari ESTIMATED GFR 2019-11-23 17:08:00 JulioIlene Meth odist POC GLUCOSE 2019-11-23 15:50:00 JulioIlene Meth odist POC GLUCOSE 2019-11-23 11:19:00 JulioIlene Meth odist XR ABDOMEN 1 VW PORTABLE 2019-11-23 10:48:39 Chayo Domingo Rastafari POC GLUCOSE 2019-11-23 07:57:00 Alejo Iqbal Cornejo Meth odist PROTHROMBIN TIME WITH INR 2019-11-23 04:30:00 Mya Sanchez Sidney Rastafari CBC HEMOGRAM 2019-11-23 04:30:00 Raghav Lopez Meth odist ALPHA FETOPROTEIN 2019-11-23 04:00:00 Mya Sanchez Cornejo Rastafari BASIC METABOLIC PANEL 2019-11-23 04:00:00 Raghav Lopez Rast[facility] HEPATIC FUNCTION PANEL 2019-11-23 04:00:00 Raghav Lopez on Rastafari ESTIMATED GFR 2019-11-23 04:00:00 Mya Sanchez Cornejo Rastafari POC GLUCOSE 2019-11-22 20:21:00 Alejo Iqbal Meth odist POC GLUCOSE 2019-11-22 15:49:00 Alejo Iqbal Meth odist POC GLUCOSE 2019-11-22 11:13:00 Alejo Iqbal Meth odist POC GLUCOSE 2019-11-22 08:41:00 Alejo Iqbal Meth odist COMPREHENSIVE METABOLIC PANEL 2019-11-22 04:00:00 Chayo Domingo ESTIMATED GFR 2019-11-22 04:00:00 Alejo Iqbal Meth odist POC GLUCOSE 2019-11-22 03:52:00 Alejo Iqbal Meth odist HC COMPLETE BLD COUNT W/AUTO DIFF 2019-11-22 03:45:00 Chayo Domingo PROTHROMBIN TIME WITH INR 2019-11-22 03:45:00 Mya Sanchez Rastafari POC GLUCOSE 2019-11-21 20:03:00 Alejo Iqbal Meth odist POC GLUCOSE 2019-11-21 15:53:00 Alejo Iqbal Meth odist POC GLUCOSE 2019-11-21 12:22:00 Alejo Iqbal Meth odist POC GLUCOSE 2019-11-21 07:38:00 Alejo Iqbal Meth odist POC GLUCOSE 2019-11-21 04:38:00 Alejo Iqbal Meth odist HC COMPLETE BLD COUNT W/AUTO DIFF 2019-11-21 04:20:00 Chayo Domingo COMPREHENSIVE METABOLIC PANEL 2019-11-21 04:00:00 Chayo Domingo LACTIC ACID LEVEL 2019-11-21 04:00:00 Chayo Domingo Nh thodist ESTIMATED GFR 2019-11-21 04:00:00 Alejo Iqbal Meth odist HC COMPLETE BLD COUNT W/AUTO DIFF 2019-11-21 00:00:00 Chayo Domingo BASIC METABOLIC PANEL 2019-11-21 00:00:00 Chayo Domingo PROTHROMBIN TIME WITH INR 2019-11-21 00:00:00 Chayo Domingo HEPATIC FUNCTION PANEL 2019-11-21 00:00:00 Chayo Domingo on Rastafari ESTIMATED GFR 2019-11-21 00:00:00 Alejo Iqbal Meth odist POC GLUCOSE 2019-11-20 23:20:00 Alejo Iqbal Meth odcinthya XR ABDOMEN 1 VW PORTABLE 2019-11-20 20:22:37 Chayo Domingoist POC GLUCOSE 2019-11-20 19:59:00 Alejo Iqbal Meth odist LACTIC ACID LEVEL 2019-11-20 19:43:00 Chayo Domnigo Me thodist BASIC METABOLIC PANEL 2019-11-20 19:43:00 Chayo Domingo ESTIMATED GFR 2019-11-20 19:43:00 Alejo Iqbal Meth odcinthya SURGICAL PATHOLOGY REQUEST 2019-11-20 18:26:00 Alejo Iqbal [place] Rastafari [place] AN ELECTIVE ENDOTRACHEAL AIRWAY 2019-11-20 17:41:02 Randa Prabhakar REPAIR, HERNIA, INGUINAL 2019-11-20 16:53:00 Kathrine Carlisle POTASSIUM, SYRINGE 2019-11-20 15:28:00 Alejo Iqbal ethodist POC GLUCOSE 2019-11-20 12:18:00 Alejo Iqbal odist POTASSIUM LEVEL 2019-11-20 12:04:00 Alejo Iqbal odist TYPE AND SCREEN 2019-11-20 11:40:00 Chayo Domingo Meth odist POC GLUCOSE 2019-11-20 09:26:00 Alejo Iqbal Meth odist HC COMPLETE BLD COUNT W/AUTO DIFF 2019-11-20 09:02:00 Chayo Domingo Rastafari LACTIC ACID LEVEL 2019-11-20 09:02:00 Chayo Domingo Nh thodist LACTIC ACID LEVEL, SEPSIS - NOW AND REPEAT 2X EVERY 3 HOURS 2019-11-20 04:05:00 Javad Gandara POC GLUCOSE 2019-11-20 03:54:00 Rodriguez, Kait Clemente harrell XR ABDOMEN 1 VW PORTABLE 2019-11-20 02:26:21 Javad Gandara LACTIC ACID LEVEL, SEPSIS - NOW AND REPEAT 2X EVERY 3 HOURS 2019-11-20 01:56:[address] ABDOMEN PELVIS W CONTRAST 2019-11-20 00:58:52 Socorro Gandara in Alex Burns COVID-19 QUALITATIVE PCR 2019-11-19 23:34:00 Javad Gandara COMPREHENSIVE METABOLIC PANEL 2019-11-19 23:34:00 Lamine Gandara min Alex Burns LACTIC ACID LEVEL, SEPSIS - NOW AND REPEAT 2X EVERY 3 HOURS 2019-11-19 23:34:00 Javad Gandara HC COMPLETE BLD COUNT W/AUTO DIFF 2019-11-19 23:34:00 Yeny Gandara PROTHROMBIN TIME WITH INR 2019-11-19 23:34:00 Javad Gandara PARTIAL THROMBOPLASTIN TIME (PTT) 2019-11-19 23:34:00 Yeny Gandara LIPASE LEVEL 2019-11-19 23:34:00 Javad Gandara ALCOHOL LEVEL, BLOOD 2019-11-19 23:34:00 Javad Gandara AMMONIA LEVEL 2019-11-19 23:34:00 Javad Gandara MAGNESIUM LEVEL 2019-11-19 23:34:00 Javad Gandara PHOSPHORUS LEVEL 2019-11-19 23:34:00 Javad Gandara ESTIMATED GFR 2019-11-19 23:34:00 Javad Gandara POC GLUCOSE 2019-10-09 19:05:00 Aly Ramírez Nh thodist US ABDOMEN COMPLETE 2019-10-09 15:05:27 Mya Sanchez US ABDOMINAL PARACENTESIS IMAGING 2019-10-09 14:43:00 Keegan Rodriguez AEROBIC CULTURE 2019-10-09 14:20:00 Aly Ramírez Nh thodist ANAEROBIC CULTURE 2019-10-09 14:20:00 Aly Ramírez GRAM STAIN 2019-10-09 14:20:00 Aly Ramírez Nh thodist ALBUMIN, MISC FLUID 2019-10-09 14:20:00 Aly Ramírez PROTEIN, MISC FLUID 2019-10-09 14:20:00 Aly Ramírez CELL COUNT AND DIFFERENTIAL, BODY FLUID 2019-10-09 14:20:00 Aly Stapleton BLOOD CULTURE, AEROBIC & ANAEROBIC 2019-10-09 11:30:00 Mya Mcguire BLOOD CULTURE, AEROBIC & ANAEROBIC 2019-10-09 11:15:00 Mya Mcguire POC GLUCOSE 2019-10-09 10:02:00 Aly Ramírez Nh thodist POC GLUCOSE 2019-10-09 08:43:00 Aly Ramírez Nh thodist HC COMPLETE BLD COUNT W/AUTO DIFF 2019-10-09 05:41:00 Keegan Rodriguez PROTHROMBIN TIME WITH INR 2019-10-09 05:41:00 Kait Rodriguez PARTIAL THROMBOPLASTIN TIME (PTT) 2019-10-09 05:41:00 Keegan Rodriguez COMPREHENSIVE METABOLIC PANEL 2019-10-09 05:41:00 Alonzo Rodriguez ESTIMATED GFR 2019-10-09 05:41:00 Kait Rodriguez Met hodist THYROID STIMULATING HORMONE 2019-10-09 05:41:00 Kait Rodriguez T4, FREE 2019-10-09 05:41:00 Kait Rodriguez Met hodist MAGNESIUM LEVEL 2019-10-09 05:41:00 Kait Rodriguez Met hodist PHOSPHORUS LEVEL 2019-10-09 05:41:00 Kait Rodriguez Me thodist POC GLUCOSE 2019-10-08 23:25:00 Kait Rodriguez Met darrenist COVID-19 QUALITATIVE PCR 2019-10-08 22:32:00 Kait Rodriguez COMPREHENSIVE METABOLIC PANEL 2019-10-08 20:55:00 Alonzo Rodriguez HC COMPLETE BLD COUNT W/AUTO DIFF 2019-10-08 20:55:00 Keegan Rodriguezmerced Clemente Burns ESTIMATED GFR 2019-10-08 20:55:00 Kait Rodriguez Met darrenist ABD PARACENTESIS W/IMAGING 2019-04-02 12:03:10 Raymond Diggs [facility] GLUCOSE POC 2019-04-02 08:58:00 Tyronroxanne Bebeto [employer] [facility] [employer] U/S PELVIS LTD NON-OB 2019-02-26 13:28:55 [facility] DUPLEX DOPPLER ABD/PEL VASCULAR STUDY, COMPLETE 2019-02-26 1 3:28:47 [facility] GLUCOSE POC 2019-02-24 08:48:00 Mili torres [facility] COMPREHENSIVE METABOLIC PANEL 2019-02-24 03:35:00 [facility] ([facility]OUT [facility] 2019-02-24 03:35:00 [facility] 2019-02-23 20:36:00 Mili torres [facility] h CT ABDOMEN AND PELVIS CONTRAST 2019-02-23 18:16:58 [facility] 2019-02-23 14:37:00 [facility] 2019-02-23 14:29:50 Mili Torres [facility] h GLUCOSE POC 2019-02-23 12:56:00 [facility] 2019-02-23 09:24:00 [facility] COMPREHENSIVE METABOLIC PANEL 2019-02-23 06:21:00 [facility] MAGNESIUM 2019-02-23 06:21:00 Uziel Gutiérrez h CBC/DIFF 2019-02-23 06:21:00 [facility] 2019-02-23 06:21:00 [facility] PTT 2019-02-23 06:21:00 [facility]iel [facility] CBC 2019-02-23 06:21:00 [facility]iel [facility] SEQUENTIAL COMPRESSION PUMP 2019-02-23 05:57:31 BrockUziel Rosenberg [facility] FLUID CULTURE AND GRAM STAIN 2019-02-23 00:33:00 Wendy Poon [facility] CELL COUNT, FLUID 2019-02-23 00:32:00 Wendy Poon [facility] lt ALBUMIN, FLD 2019-02-23 00:32:00 Wendy Poon [facility] h T PROTEIN, FLD 2019-02-23 00:32:00 Wendy Poon [facility] h GLUCOSE, FLD 2019-02-23 00:32:00 Wendy Poon [facility] h LDH, SDD 2019-02-23 00:32:00 Wendy Poon [facility] h CELL COUNT, BODY FLUID 2019-02-23 00:32:00 Wendy Poon [facility] DIFFERENTIAL, CELL COUNT 2019-02-23 00:32:00 Wendy Poon [facility] TROPONIN I POC 2019-02-22 23:18:00 [facility] 2019-02-22 23:14:00 [facility] 2019-02-22 23:07:00 Enedelia Oneil h PT/INR 2019-02-22 23:02:00 Grisel Moore lt LIVER PROFILE 2019-02-22 23:02:00 Grisel Moore lth AMMONIA 2019-02-22 23:02:00 Celina Reyna lt BMP POC 2019-02-22 22:27:00 Unknown, Provider [facility] CBC/DIFF 2019-02-22 22:22:00 Grisel Moore lt CBC 2019-02-22 22:22:00 Grisel [facility] DIFFERENTIAL, MANUAL-WAM 2019-02-22 22:22:00 Grisel Moore [facility] ECHG EKG PROC 12 LEAD EKG; TRACING ONLY 2019-02-22 22:13:48 Grisel Santillan [facility] HEMOGLOBIN A1C 2019-01-09 15:56:00 Bebeto Brown [facility] DIABETIC FOOT EXAM 2019-01-09 15:16:18 Bebeto Brown Mitzi Fara is Health Plan of Care Planned Activity Planned Date Details Comments Source Future Scheduled Test 2020-01-10 00:00:00 DM Foot Exam (Year ly) [code = DM Foot Exam (Yearly)] [facility] Scheduled Test 2020-01-10 00:00:00 Hemoglobin A1c christa surement (procedure) [code = 80422629] [facility] Scheduled Test 2019-12-24 00:00:00 IMM Influenza Seas onal Dec to May (>/= 19 yrs) [code = IMM Influenza Seasonal Dec to May (>/= 19 yrs)] [facility] Scheduled Test 2019-10-24 00:00:00 INFLUENZA VACCINE [code = INFLUENZA VACCINE] [facility] Scheduled Test 2019-01-06 00:00:00 Urine screening fo r protein (procedure) [code = 457550691] [facility] Scheduled Test 2019-01-02 00:00:00 DM Retinal Exam (Y early) [code = DM Retinal Exam (Yearly)] [facility] Scheduled Test 2005 00:00:00 BREAST CANCER SCRE ENING [code = BREAST CANCER SCREENING] [facility] Scheduled Test 2005 00:00:00 COLONOSCOPY SCREEN ING [code = COLONOSCOPY SCREENING] [facility] Scheduled Test 2005 00:00:00 SHINGLES VACCINES (#1) [code = SHINGLES VACCINES (#1)] [facility] Scheduled Test 2005 00:00:00 Screening for shanti gnant neoplasm of colon (procedure) [code = 970020571] [facility] Scheduled Test 1995 00:00:00 Breast Cancer Scrn (Yearly) [code = Breast Cancer Scrn (Yearly)] [facility] Scheduled Test 1976-02-17 00:00:00 Screening for shanti gnant neoplasm of cervix (procedure) [code = 287706981] [facility] Scheduled Test 1976-02-17 00:00:00 Screening for shanti gnant neoplasm of cervix (procedure) [code = 617799171] [facility] Scheduled Test 1965 00:00:00 DIABETIC FOOT EXAM [code = DIABETIC FOOT EXAM] [facility] Scheduled Test 1965 00:00:00 URINE MICROALBUMIN [code = URINE MICROALBUMIN] [facility] Scheduled Test 1955 00:00:00 DIABETIC RETINAL E YE EXAM [code = DIABETIC RETINAL EYE EXAM] [facility] Encounters Start Date/Time End Date/Time Encounter Type Admission Type [facility] Care Department Encounter ID Source 2018-03-28 12:20:21 Inpatient [facility] [id number] [facility] 2018-03-27 11:42:04 Inpatient [facility] [id number] [facility] 2019-11-19 00:00:00 2019-11-28 00:00:00 Inpatient [facility] [id number] [facility] 2019-10-08 00:00:00 2019-10-10 00:00:00 Inpatient ALY RAMÍREZ [facility] [id number] [facility] 2019-07-08 00:00:00 2019-07-08 00:00:00 Keegan Crystal D: [address], [address], [place] [address], Ph. [facility] [id number] [facility] Family Pract [facility] 2019-04-27 00:00:00 2019-04-27 00:00:00 Denisse Martin MD: [id number] [place] [address], Ph. [facility] [id number] [facility] 2019-04-20 00:00:00 2019-04-20 00:00:00 Outpatient [facility] [id number] [facility] 2019-04-02 07:12:16 2019-04-02 07:12:16 Outpatient [facility] [id number] [facility] 2019-03-31 00:00:00 2019-03-31 00:00:00 Outpatient [facility] [id number] [facility] 2019-03-10 15:12:17 2019-03-10 15:12:17 Outpatient [facility] [id number] [facility] 2019-03-05 00:00:00 2019-03-05 00:00:00 Outpatient [facility] [id number] [facility] 2019-03-05 00:00:00 2019-03-05 00:00:00 Outpatient [facility] [id number] [facility] 2019-03-03 00:00:00 2019-03-03 00:00:00 Outpatient [facility] [id number] [facility] 2019-02-26 11:07:23 2019-02-26 11:07:23 Outpatient [facility] [id number] [facility] 2019-02-26 11:07:21 2019-02-26 11:07:21 Outpatient [facility] [id number] [facility] 2019-02-23 17:24:32 2019-02-23 17:24:32 Outpatient [facility] [id number] [facility] 2019-02-23 13:03:57 2019-02-23 13:03:57 Outpatient [facility] [id number] [facility] 2019-02-22 22:33:42 2019-02-22 22:33:42 Outpatient [facility] [id number] [facility] 2019-02-10 09:31:53 2019-02-10 09:31:53 Outpatient [facility] [id number] [facility] 2019-01-23 00:00:00 2019-01-23 00:00:00 Outpatient [facility] [id number] [facility] 2019-01-23 00:00:00 2019-01-23 00:00:00 Outpatient [facility] [id number] [facility] 2019-01-21 10:35:55 2019-01-21 10:35:55 Outpatient [facility] [id number] [facility] 2019-01-09 15:56:32 2019-01-09 15:56:32 Outpatient [facility] [id number] [facility] 2019-01-09 14:41:00 2019-01-09 14:41:00 Outpatient [facility] [id number] [facility] 2019-01-09 00:00:00 2019-01-09 00:00:00 Outpatient [facility] [id number] [facility] 2019-01-02 00:00:00 2019-01-02 00:00:00 Outpatient [facility] [id number] [facility] 2018-11-06 16:06:32 2018-11-06 16:06:32 Emergency [facility] [id number] [facility] 2018-11-06 12:21:16 2018-11-06 12:21:16 Emergency [facility] [id number] [facility] 2018-09-19 13:54:52 2018-09-19 13:54:52 Outpatient [facility] [id number] [facility] 2018-09-19 00:00:00 2018-09-19 00:00:00 Outpatient [facility] [id number] [facility] 2018-09-04 00:00:00 2018-09-04 00:00:00 Outpatient [facility] [id number] [facility] 2018-08-28 00:00:00 2018-08-28 00:00:00 Outpatient [facility] [id number] [facility] 2018-07-28 00:00:00 2018-07-28 00:00:00 Outpatient [facility] [id number] [facility] 2018-07-17 00:00:00 2018-07-17 00:00:00 Outpatient [facility] [id number] [facility] 2018-07-15 00:00:00 2018-07-15 00:00:00 Outpatient [facility] [id number] [facility] 2018-07-14 08:57:40 2018-07-14 08:57:40 Outpatient [facility] [id number] [facility] 2018-06-18 13:34:34 2018-06-18 13:34:34 Outpatient [facility] [id number] [facility] 2018-06-18 00:00:00 2018-06-18 00:00:00 Outpatient [facility] [id number] [facility] 2018-06-10 15:37:00 2018-06-10 15:37:00 Outpatient [facility] [id number] [facility] 2018-06-10 13:20:09 2018-06-10 13:20:09 Outpatient [facility] [id number] [facility] 2018-06-03 14:53:50 2018-06-03 14:53:50 Outpatient [facility] [id number] [facility] 2018-04-24 00:00:00 2018-04-24 00:00:00 Emergency [facility] [id number] [facility] 2018-04-16 00:00:00 2018-04-16 00:00:00 Outpatient [facility] [id number] [facility] 2018-04-15 11:35:53 2018-04-15 11:35:53 Outpatient [facility] [id number] [facility] 2018-04-15 10:27:22 2018-04-15 10:27:22 Outpatient [facility] [id number] [facility] 2018-04-11 00:00:00 2018-04-11 00:00:00 Outpatient [facility] [id number] [facility] 2018-04-09 00:00:00 2018-04-09 00:00:00 Outpatient [facility] [id number] [facility] 2018-03-24 20:34:39 2018-03-24 20:34:39 Emergency [facility] [id number] [facility] 2018-03-24 18:15:07 2018-03-24 18:15:07 Emergency [facility] [id number] [facility] 2018-03-24 15:56:34 2018-03-24 15:56:34 Inpatient [facility] [id number] [facility] 2018-03-24 00:00:00 2018-03-24 00:00:00 Emergency [facility] [id number] [facility] 2018-03-24 00:00:00 2018-03-24 00:00:00 Emergency [facility] [id number] [facility] 2018-03-24 00:00:00 2018-03-24 00:00:00 Emergency [facility] [id number] [facility] 2018-03-19 00:00:00 2018-03-19 00:00:00 Outpatient [facility] [id number] [facility] 2018-02-18 00:00:00 2018-02-18 00:00:00 Outpatient [facility] [id number] [facility] 2018-01-31 00:00:00 2018-01-31 00:00:00 Outpatient [facility] [id number] [facility] 2018-01-21 09:59:16 2018-01-21 09:59:16 Outpatient [facility] [id number] [facility] 2018-01-21 00:00:00 2018-01-21 00:00:00 Outpatient [facility] [id number] [facility] 2018-01-20 00:00:00 2018-01-20 00:00:00 Outpatient [facility] [id number] [facility] 2018-01-16 00:00:00 2018-01-16 00:00:00 Outpatient [facility] [id number] [facility] 2018-01-07 03:03:22 2018-01-07 03:03:22 Emergency [facility] [id number] [facility] 2018-01-07 01:47:44 2018-01-07 01:47:44 Emergency [facility] [id number] [facility] 2018-01-07 00:58:42 2018-01-07 00:58:42 Emergency [facility] [id number] [facility] 2018-01-06 21:27:04 2018-01-06 21:27:04 Outpatient [facility] [id number] [facility] 2018-01-06 08:02:33 2018-01-06 08:02:33 Outpatient [facility] [id number] [facility] 2018-01-06 00:00:00 2018-01-06 00:00:00 Emergency [facility] [id number] [facility] 2018-01-02 08:42:41 2018-01-02 08:42:41 Outpatient [facility] [id number] [facility] 2018-01-02 00:00:00 2018-01-02 00:00:00 Outpatient [facility] [id number] [facility] 2017-10-03 00:00:00 2017-10-03 00:00:00 Outpatient [facility] [id number] [facility] 2017-09-11 00:00:00 2017-09-11 00:00:00 Outpatient [facility] [id number] [facility] 2017-09-10 08:45:14 2017-09-10 08:45:14 Outpatient [facility] [id number] [facility] 2017-08-08 00:00:00 2017-08-08 00:00:00 Outpatient [facility] [id number] [facility] 2017-08-05 00:00:00 2017-08-05 00:00:00 Outpatient [facility] [id number] [facility] 2017-07-25 00:00:00 2017-07-25 00:00:00 Outpatient [facility] [id number] [facility] 2017-07-15 00:00:00 2017-07-15 00:00:00 Outpatient [facility] [id number] [facility] 2017-07-08 00:00:00 2017-07-08 00:00:00 Outpatient [facility] [id number] [facility] 2017-07-08 00:00:00 2017-07-08 00:00:00 Outpatient [facility] [id number] [facility] 2017-06-27 11:20:57 2017-06-27 11:20:57 Outpatient [facility] [id number] [facility] 2017-06-13 11:56:32 2017-06-13 11:56:32 Outpatient [facility] [id number] [facility] 2017-06-13 10:51:50 2017-06-13 10:51:50 Outpatient [facility] [id number] [facility] 2017-06-11 14:28:51 2017-06-11 14:28:51 Emergency [facility] [id number] [facility] 2017-06-05 00:00:00 2017-06-05 00:00:00 Outpatient [facility] [id number] [facility] 2017-05-29 09:12:31 2017-05-29 09:12:31 Outpatient [facility] [id number] [facility] 2017-02-08 08:18:16 2017-02-08 08:18:16 Outpatient [facility] [id number] [facility] 2017-01-02 12:21:05 2017-01-02 12:21:05 Outpatient [facility] [id number] [facility] 2017-01-02 09:35:42 2017-01-02 09:35:42 Outpatient [facility] [id number] [facility] 2016-11-14 00:00:00 2016-11-14 00:00:00 Outpatient [facility] [id number] [facility] 2016-11-07 12:54:04 2016-11-07 12:54:04 Outpatient [facility] [id number] [facility] 2016-11-07 07:15:09 2016-11-07 07:15:09 Emergency [facility] [id number] [facility] 2016-11-07 06:39:18 2016-11-07 06:39:18 Emergency [facility] [id number] [facility] 2016-11-07 00:20:32 2016-11-07 00:20:32 Outpatient [facility] [id number] [facility] 2016-10-25 21:18:35 2016-10-25 21:18:35 Emergency [facility] [id number] [facility] 2016-10-25 19:59:19 2016-10-25 19:59:19 Emergency [facility] [id number] [facility] 2016-10-25 18:22:15 2016-10-25 18:22:15 Emergency [facility] [id number] [facility] 2016-10-25 17:44:25 2016-10-25 17:44:25 Emergency [facility] [id number] [facility] Results Test Description Test Time Test Comments Results Result Comments Source US GUIDED PARACENTESIS 2019-12-31 14:17:00 [facility] [address] [address] Patient Name: SUZI SCANLON MR #: [id number] : 1955 Age/Sex: 64/F Req #: [id number] Adm Physician: Ordered by: HARRISON LOPEZ MD Report #: [id number] Location: Room/Bed: Procedure: [id number] US/US GUIDED PARACENTESIS Exam Date: 12/31/19 Exam Time: 1330 REPORT STATUS: Signed HISTORY : Symptomatic ascites. Technique/findings: Informed written consent was obtained. Discussion of risks, benefits, and alternatives were made with the patient. The patient expressed understanding and agreed to proceed. A universal timeout was performed prior to starting the procedure. Initial ultrasound images demonstrate moderate volume of ascites. A pocket of fluid was identified in the left lower quadrant of the abdomen. This area was marked. The area was prepped and draped in the usual sterile fashion. 1% lidocaine was applied to the skin and deep soft tissues. Color ultrasound was used to assess for any vessels within the vicinity of the planned trajectory of the one-step, a image was saved. A 5 Italian one-step catheter was inserted and removed from the peritoneal space and approximately 3.6 liters of yellow ascitic fluid was aspirated from the abdomen. Specimens were collected for the lab. There were no immediate complications. Impression: Successful ultrasound guided paracentesis with aspiration of 3.6 liters of fluid. On presentation patient was complaining of right lower extremity swelling and pain. I recommended emergency room evaluation to the patient. Signed by: Laith Sullivan MD on 12/31/2019 2:17 PM Dictated By: LAITH SULLIVAN MD [id number] Transcribed By: MELANIE on 12/31/19 1417 COPY TO: HARRISON LOPEZ M.D. US ABDOMEN LIMITED 2019-12-17 13:57:[address] [address] Patient Name: SUZI SCANLON MR #: [id number] : 1955 Age/Sex: 64/F Req #: [id number] Adm Physician: Ordered by: HARRISON LOPEZ MD Report #: [id number] Location: Room/Bed: Procedure: [id number] US/US ABDOMEN LIMITED Exam Date: 12/17/19 Exam Time: 1305 REPORT STATUS: Signed EXAM: US ABDOMEN LIMITED DATE: 12/17/2019 1:05 PM INDICATION: ASCITIES COMPARISON: None TECHNIQUE: Transverse and longitudinal oliva scale and color doppler sonographic images of the 4 quadrants were obtained. FINDINGS: Only a small amount of fluid is noted within the 4 quadrants, not significant enough for large volume paracentesis. Patient was in agreement and would return once the fluid has increased. IMPRESSION: Limited four-quadrant ultrasound demonstrates only a small amount of ascites, not and not for safe or efficacious paracentesis. Patient will return for large volume paracentesis. Signed by: Laith Sullivan MD on 12/17/2019 1:58 PM Dictated By: LAITH SULLIVAN MD 1358 Transcribed By: MELANIE on 12/17/19 1358 COPY TO: HARRISON LOPEZ M.D. US GUIDED PARACENTESIS 2019-12-07 15:30:00 [place] [address] Patient Name: SUZI SCANLON MR #: [id number] : 1955 Age/Sex: 64/F Req #: [id number] [facility] Physician: Ordered by: HARRISON LOPEZ MD Report #: [id number] Location: Room/Bed: Procedure: US/US GUIDED PARACENTESIS Exam Date: 12/07/19 Exam Time: 1434 REPORT STATUS: Signed HISTORY : Symptomatic ascites. Technique/findings: Informed written consent was obtained. Discussion of risks, benefits, and alternatives were made with the patient. The patient expressed understanding and agreed to proceed. A universal timeout was performed prior to starting the procedure. Initial ultrasound images demonstrate moderate volume of ascites. A pocket of fluid was identified in the left lower quadrant of the abdomen. This area was marked. The area was prepped and draped in the usual sterile fashion. 1% lidocaine was applied to the skin and deep soft tissues. Color ultrasound was used to assess for any vessels within the vicinity of the planned trajectory of the one-step, a image was saved. A 5 Italian one-step catheter was inserted and removed from the peritoneal space and approximately 4.05 liters of clear yellow ascitic fluid was aspirated from the abdomen. Specimens were collected for the lab. There were no immediate complications. Impression: Successful ultrasound guided paracentesis with aspiration of 4.05 liters of fluid. Signed by: Laith Sullivan MD on 12/07/2019 3:30 PM Dictated By: LAITH SULLIVAN MD 29 Transc ribed By: MELANIE on 12/07/191529 COPY TO: HARRISON LOPEZ M.D. Blood culture, aerobic & anaerobic 2019-12-02 06:03:07 Test Item Blood culture isolate (test code = 600-7) No growth after 5 days of incubation. Specimen InformationSpecimen Source: BloodSpecimen Site: UNSPECIFIED [facility] MethodistAnaerobic ugdsrtw5375-45-00 09:24:22* Test Item Value Reference Range Interpretation Comments Anaerobic culture isolate (test code = 552) No anaerobic organis ms isolated. Specimen InformationSpecimen Source: Per itoneal fluidSpecimen Site: Abdomen [facility] MethodistAerobic [id number] 04:57:31* Test Item Value Reference Range Interpretation Comments Aerobic culture isolate (test code = 498) No growth after 3 days. 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 farming specialist Interpretation (test code = 80743-5) Abnormal [facility] mlkwszvr4806-78-53 09:37:09* Test Item Value Reference Range Interpretation Comments WBC (test code = 89858-6) 7.78 4.50- 11.00 k/uL RBC (test code = 40229-5) 3.16 m/uL 4.2-5.5 L HGB (test code = 718-7) 10.5 g/dL 12-16 L HCT (test code = 4544-3) 31.0 % 37-47 L MCV (test code = 787-2) 98.1 fL 82-100 MCH (test code = 785-6) 33.2 pg 27-34 MCHC (test code = 786-4) 33.9 g/dL 31-37 RDW - SD (test code = 73146-8) 55.0 fL 37-55 MPV (test code = 33984-2) 13.1 fL 8.8-13.2 Platelet count (test code = 30401-9) 91 150- 400 k/uL L Nucleated RBC (test code = 85382-3) 0.30 /100 WBC Lab Interpretation (test code = 45397-0) Abnormal [facility] metabolic kosnj1932-38-43 07:11:20* Test Item Value Reference Range Interpretation Comments Sodium (test code = 2951-2) 138 135- 148 mEq/L Potassium (test code = 2823-3) 3.3 3.5- 5.0 mEq/L L Chloride (test code = 2075-0) 102 98- 112 mEq/L CO2 (test code = 8-9) 25 24- 31 mEq/L Anion gap (test code = 83585-5) 11@ANIO 7- 15 mEq/L BUN (test code = 3094-0) 6 mg/dL 8-23 L Creatinine (test code = 2160-0) 0.58 mg/dL 0.5-0.9 Glucose (test code = 2345-7) 66 mg/dL 65-99 Calcium (test code = 15222-3) 8.5 mg/dL 8.8-10.2 L Lab Interpretation (test code = 27160-5) Abnormal [facility] MethodistHepatic function pbhpw6306-09-53 07:11:20* Test Item Value Reference Range Interpretation Comments Albumin (test code = 1751-7) 2.7 g/dL 3.5-5 L Total bilirubin (test code = 1974-2) 1.1 mg/dL 0-1.2 Bilirubin direct (test code = 1967-7) 0.4 mg/dL 0-0.3 H Alkaline phosphatase (test code = 6768-6) 116 U/L 35-104 H Protein (test code = 2885-2) 6.2 g/dL 6.3-8.3 L -Medon 4.6- 7.0 g/dL1 week 4.4-7.6 g/dL7 months-1year 5.1-7.3 g/dL1-2 years 5.6-7.5 g/dL>3 years 6.0-8.0 g/pX09-068 6.3-8.3 g/dL ALT (test code = 1742-6) 14 U/L 5-50 AST (test code = 1920-8) 29 U/L 10-35 Lab Interpretation (test code = 00007-4) Abnormal [facility] MethodistEstimated [id number] 07:11:20* Test Item Value Reference Range Interpretation Comments Estimated GFR (test code = 5488) >=90 mL/min/1.73 m2 Catergory Units InterpretationG1 >=90 Normal or highG2 60-89 Mildly nbfkewzjdJ2t 45-59 Mildly to moderately eytupbbubU2e 30-44 Moderately to severely decreasedG4 15-29 Severely decreasedG5 <15 Kidney failureThe eGFR was calculated using the Chronic Kidney Disease Epidemiology Collaboration (CKD-EPI) equation. Interpretation is based on recommendations of the National Kidney Foundation-Kidney Disease Outcomes Quality Initiative (NKF-KDOQI) published in 2014. [facility] CoryistMRI Abdomen W Wo Juhjfaip3513-25-27 18:47:01Hm Interface, Radiology Results 11/27/2019 6:50 PM CDTEXAMINATION: MRI ABDOMEN W WO CONTRASTCLINICAL HISTORY:64 years Female liver mass protocol- possible HCC on CTCOMPARISON: 11/26/2019TECHNIQUE: Multiplanar, multisequence MRI of the abdomen with and without intravenous gadolinium. Heavily T2-weighted MRCP sequences included with 3-D processing performed on acquisition scanner under concurrent supervision.FINDINGS:The liver cirrhotic. There is a 1.1 cm arterial phase hypervascular focus in segment 6 (series 9 image 228), isointense on T2/D WI and without definite washout or pseudocapsule. There is confluent fibrosis la terally in segment 8.A punctate lesion in segment 4A hypoenhancing on arterial/e yesenia venous phase (series 9 image 374) and hyperenhancing on delayed phase (seri es 14 image 53) likely corresponding to T2 bright focus on series 10 image 12) a nd most consistent with a hemangioma. Subcentimeter cyst in segment 3.Portal vei n is patent. Mild splenomegaly, moderate large ascites, and esophageal varices.D iffuse mesenteric edema and bowel thickening likely secondary to portal hyperten ivelisse.Cholelithiasis. No biliary dilatation. Atrophic pancreas.Unremarkable kidne ys and adrenal glands.Aorta is normal in caliber.Ventral hernia containing fat a nd ascites.IMPRESSION:1.Liver cirrhosis and portal hypertension.2.A 1.1 cm hyper enhancing nodule in the right lobe is indeterminate, LI-RADS 3. Recommend 3 biju h follow-up liver protocol CT or MRI.HMRM-ZWBUTD1Pserafd MethodistSurgical pathology jgvsoqq0237-13-12 18:12:26* Test Item Value Reference Range Interpretation Comments Case number (test code = 8660890) [id number] Surgical pathology report (test code = 2255) See link below for PDF Lab Report Result status (test code = 5008795) This is Final Report for [id number] Sidney MethodistGram lgipe1912-63-55 07:43:50Gram stain isolateFew WBC'sNo organisms seen Comment: Specimen InformationSpecimen Source: Peritoneal fluidSpecimen Site: [facility]domen [facility] MethodistCT Abdomen Pelvis W [id number] 23:12:12Hm Interface, Radiology Results 11/26/2019 11:15 PM CDTCT ABDOMEN PELVIS W CONTRASTCLINICAL INDICATION: increasing distention and enterococcal bacteremiaTECHNIQUE: Multidetector CT imaging of the abdomen and pelvis was performed following the intravenous administration of iodinated contrast with multiplanar reconstructions. CT imaging was performed with iterative reconstruction techni que and/or automated exposure control to reduce radiation dose.COMPARISON: 11/19IMPRESSION:LOWER THORAX: Mild bibasilar atelectasis/scarring. Some coronar y artery calcifications are identified. Minimal mitral valve calcifications are seen.LIVER: Cirrhotic liver. Within the right lobe of the liver, there is a 1 .1 cm enhancing lesion that is indeterminate. This raises concern for possible h epatocellular carcinoma, and full evaluation with CT liver mass protocol or MRI abdomen is advised on nonemergent basis. (This is best seen on series 2, image 3 8)BILIARY: Gallstones are seen in the lumen of the bladder. Some calculi are se en within the cystic duct. No wall thickening is identified, and pericholecystic fluid is nonspecific given the ascites. No biliary ductal dilation is seen. SPL EEN: Normal.PANCREAS: Normal.ADRENALS: Normal. KIDNEYS: Kidneys and ureters are normal. Small gas in the bladder may just be related to recent catheterizati on.PERITONEUM: Moderate ascites. No free intraperitoneal air.Anterior abdominal wall ventral hernia is identified containing a loop of small bowel. There is a s mall fluid-containing left inguinal region hernia. VASCULAR: Esophageal varices and some perigastric varices are seen. A left splenorenal shunt is identified. Some anterior abdominal mesenteric varices are seen.Moderate atherosclerotic vas cular calcifications and plaque are identified.LYMPH NODES: No enlarged lymph n odes in the abdomen or pelvis.GI: Moderate quantity of fecal material is seen o f the large bowel. Mild to moderate wall thickening of loops of large bowel and small bowel are seen diffusely throughout the peritoneal cavity, which may just represent some third spacing/edema. Correlation to exclude enterocolitis is advi sed. The appendix is normal. No gastrointestinal tract obstruction.Moderate wall thickening/edema of the stomach may just be secondary to third spacing. Correla tion to exclude gastritis is advised.BONES: There are no acute osseous abnormal ities.SOFT TISSUES: Mild to moderate anasarca.Summary:Cirrhotic liver with esop hageal varices, perigastric varices, compatible with portal hypertension. Modera te ascites is identified.Enhancing lesion in the right lobe of the liver measuri ng 1.1 cm raises concern for hepatocellular carcinoma, and further evaluation wi CT liver mass protocol or MRI abdomen with and without contrast is advised.Ga llstones without cholecystitis. Some stone are seen within the cystic duct. No b iliary ductal dilation is identified.Moderate wall thickening and edema of loops of large bowel and small bowel may just represent third spacing/edema. Correlat ion to exclude enteritis/colitis is advised. Question of gastritis.[facility]-[id number] Feroz MethodistCell count and differential, body [id number] 21:49:53* Test Item Value Reference Range Interpretation Comments [facility] fluid type (test code = 67309-8) Paracentesis Color, fluid (test code = 6824-7) Yellow Appearance, fluid (test code = 9335-1) Clear RBC, fluid (test code = 41577-5) SEE COMMENT /CMM 1+ (0 - 500 RBC/CMM) Nucleated cells, fluid (test code = 78872-8) 229 /CMM Fluid mononuclear cell (test code = 1407) See Diff Neutrophils, fluid (test code = 21271-8) 21 % Lymphocytes, fluid (test code = 86462-6) 7 % Mesothelial cells, fluid (test code = 29125-4) 1 % Macrophages, fluid (test code = 26246-7) 69 % Plasma cells, fluid (test code = 69883-8) 2 % Clemente MethodistProtein, [facility] dnsum5847-50-35 20:56:05* Test Item Value Reference Range Interpretation Comments Fluid type (test code = 62411-9) Paracentesis Protein, fluid (test code = 2881-1) 1.0 g/dL The reference interval(s) and other method performance specifications have not been established for this body fluid. The test results must be integrated into the clinical context for interpretation.This test has been modified from the manufacturers instructions. The performance characteristics were determined by [facility] in a manner consistent with CLIA requirements. This test has not been cleared or approved by the U.S. Food and Drug Administration. [facility] Abdominal Paracentesis Wgbyhwt4637-13-81 18:28:02Hm Interface, Radiology Results 11/26/2019 6:31 PM CDTPROCEDURE:Ultr asound-guided paracentesisPerforming Clinician: QUANG Mitchell Physician:Dr. Lrtants:None Pre Procedure Diagnosis:ASCITESPost Pro cedure Diagnosis:ASCITESIndication:AscitesComplications:No immediate post proced ure complications.IMPRESSION:1.Technically successful ultrasound-guided diagnost ic/therapeutic paracentesis.2.There is a moderate simple ascites.3.Trace residua l ascites is seen on postprocedure ultrasound.PLAN:The patient will be monitored in the recovery area for approximately 30 minutes to evaluate vital signs and b lood pressure. PROCEDURE SUMMARY:Access of the peritoneal space us ing ultrasound guidancePROCEDURE DETAILS:Pre-procedure:Comparison studies: NoneW ritten and informed consent for the procedure and monitored conscious sedation w as obtained from the patient.Prophylactic antibiotics: NonePreparation: The righ t lower quadrant of the abdomen was prepared and draped using all elements of [facility] sterile barrier technique including sterile gloves, sterile gown, catheter , mask, large sterile sheet, sterile ultrasound probe cover, hand hygiene and cu taneous antisepsis using chlorhexidine.Anesthesia/Sedation:Level of anesthesia: None (Lidocaine only)Medications used: 1% lidocaineDuration of anesthesia/sedati on: N/AAccess:Local anesthesia was administered. The right lower quadrant was e valuated with preprocedure ultrasound. Real-time ultrasound was used to visualiz e needle entry into the peritoneal space. Access technique:One-step CatheterPara centesis:Fluid Color: YellowVolume Removed: 3300 mLFluid Analysis: The fluid was sent for laboratory tests ordered by the primary teamClosure:The One-step varun ter was removed and hemostasis was achieved with manual compression. A sterile d ressing was applied.Additional details:Estimated blood loss: Less than 10 [facility]- [id number] MethodistProthrombin time with [id number] 05:27:10* Test Item Value Reference Range Interpretation Comments Prothrombin time (test code = 5902-2) 18.8 11.5- 14.5 sec H INR (test code = 02398-1) 1.6 Th e International Normalized Ratio (INR) is a therapeutic monitoring tool for patients who are stable on oral anticoagulant therapy. An INR of 2.0-3.0 is suggested for deep vein thrombosis/pulmonary embolism. Lab Interpretation (test code = 60697-3) Abnormal Clemente MethodistUrine bvwsebe3916-20-67 10:45:16* Test Item Value Reference Range Interpretation Comments Urine culture (test code = 0997007) SEE COMMENT Bacteriuria screen negative. Clemente MethodistUrinalysis screen and microscopy, with reflex to culture 2019-11-25 10:45:14* Test Item Value Reference Range Interpretation Comments Specimen site (test code = 6029192) Clean catch Color, UA (test code = 5778-6) Angeline Appearance, UA (test code = 5767-9) Clear Specific gravity, UA (test code = 5811-5) 1.031 1.001-1.035 pH, UA (test code = 5803-2) 5.0 5.0-8.5 Protein, UA (test code = 75407-1) 1+ Negative A Glucose, UA (test code = 58647-9) Negative Negative Ketones, UA (test code = 2514-8) Negative Negative Bilirubin, UA (test code = 5770-3) Positive@UBIL Negative A Blood, UA (test code = 5794-3) Negative Negative Nitrite, UA (test code = 5802-4) Negative Negative Urobilinogen, UA (test code = 75107-1) 4.0 <2.0 A Leukocyte esterase, UA (test code = 5799-2) Negative Negative Epithelial cells, UA (test code = 5787-7) 3 /HPF WBC, UA (test code = 5821-4) 1 0- 4 /HPF RBC, UA (test code = 85118-4) 1 0- 5 /HPF Bacteria, UA (test code = 25910-7) None seen None seen Yeast, UA (test code = 33472-0) Few A Yeast with pseudohyphae, UA (test code = 72080-8) None seen Hyaline casts, UA (test code = 5796-8) 3 /LPF Lab Interpretation (test code = 52174-8) Abnormal [facility] Methodinscription house health centerComprehensive metabolic gnvdo3484-38-55 04:51:30* Test Item Value Reference Range Interpretation Comments Sodium (test code = 2951-2) 137 135- 148 mEq/L Potassium (test code = 2823-3) 3.3 3.5- 5.0 mEq/L L Chloride (test code = 2075-0) 100 98- 112 mEq/L CO2 (test code = 2027-9) 23 24- 31 mEq/L L Anion gap (test code = 43698-2) 14@ANIO 7- 15 mEq/L BUN (test code = 3094-0) 9 mg/dL 8-23 Creatinine (test code = 2160-0) 0.58 mg/dL 0.5-0.9 Glucose (test code = 2345-7) 131 mg/dL 65-99 H Calcium (test code = 36181-7) 7.4 mg/dL 8.8-10.2 L Protein (test code = 2885-2) 5.4 g/dL 6.3-8.3 L - 4.6- 7.0 g/dL1 week 4.4-7.6 g/dL7 months-1year 5.1-7.3 g/dL1-2 years 5.6-7.5 g/dL>3 years 6.0-8.0 g/uB03-338 6.3-8.3 g/dL Albumin (test code = 1751-7) 2.4 g/dL 3.5-5 L A/G ratio (test code = 1759-0) 0.8 0.7-3.8 Alkaline phosphatase (test code = 6768-6) 68 U/L 35-104 AST (test code = 1920-8) 29 U/L 10-35 ALT (test code = 1742-6) 12 U/L 5-50 Total bilirubin (test code = 1975-2) 1.6 mg/dL 0-1.2 H Lab Interpretation (test code = 14423-9) Abnormal [facility] MethodistBilirubin uwmlyn7628-68-23 04:51:30* Test Item Value Reference Range Interpretation Comments Bilirubin direct (test code = 1968-7) 0.7 mg/dL 0-0.3 H Lab Interpretation (test code = 90703-4) Abnormal [facility] MethodistMagnesium nyjvi7108-29-33 04:51:30* Test Item Value Reference Range Interpretation Comments Magnesium (test code = 00817-8) 1.5 mg/dL 1.6-2.4 L Lab Interpretation (test code = 63019-6) Abnormal [facility] MethodistPhosphorus qoqlz7960-02-96 04:51:27* Test Item Value Reference Range Interpretation Comments Phosphorus (test code = 2777-1) 2.0 mg/dL 2.4-4.5 L Lab Interpretation (test code = 78545-0) Abnormal [facility] MethodistXR Chest 1 Peihaijv9602-96-51 11:39:07Hm Interface, Radiology Results 11/24/2019 11:42 AM CDTEXAMINATION: XR CHEST 1 PORTABLECLINICAL HISTORY: r o atelactasis vs pneumoniaCOMPARISON: NoneIMPRESSION:An AP radiograph of the chest was submitted for interpretation. Blunting of the left posterior phrenic sulcus is noted suggesting a small left-s ided pleural effusion versus atelectasis.Atelectasis is noted within the right m idlung.Mild pulmonary vascular congestion versus reactive airway disease.No righ t-sided pleural effusion.No pneumothorax or midline shift.The mediastinal contou rs and cardiac silhouette are unremarkable. Mild calcified atherosclerotic disea se.The bones are unremarkable. [facility]-[id number] MethodistHemoglobin A1c 2019-11-24 08:07:49* Test Item Value Reference Range Interpretation Comments Hemoglobin A1C (test code = 03348-9) 5.8 % 4-5.6 H HbA1c cutoffs for diagnosing diabetes:4.0% - 5.6% = normal5.7% - 6.4% = increased risk for diabetes (prediabetes)9>=6.5% = mqwegclo3Jpfhy for glycemic control (ADA 2016)< 7.0% Target for non adults with diabetes. More or less stringent targets may be appropriate for individual patients. <7.5% Target for Children and adolescents with type 1 diabetes. Lab Interpretation (test code = 08720-1) Abnormal Sidney MethodistXR Abdomen 1 Vw Ufuoqcev7343-87-13 12:55:13Hm Interface, Radiology Results 11/23/2019 12:58 PM CDTEXAMINATION: XR ABDOMEN 1 VW PORTABLECLINICAL HISTORY: 64 years 1955 eval bowel gas pattern COMPARISON: 11/20/2019IMPRESSION:1.Nasogastric tube terminates in the region of the duodenal bulb.2.There has been interval improvement in previous dilated air- filled loops of small bowel. Largest air-filled small bowel loop currently measures 2.9 cm. This suggests some improvement in recently described small vangie l obstruction, clinical correlation. Follow-up is advised.3.There is no plain fi lm evidence of free air.[facility]-[id number] MethodistAlpha fetoprotein 2019-11-23 05:54:41* Test Item Value Reference Range Interpretation Comments Alpha fetoprotein (test code = 11366-6) 6.0 ng/mL 0-8.3 The Fred 8000 AFP immunoassay was used. Results obtained with different assay methods or kits should not be used interchangeably and may be different. Sidney MethodistCBC with platelet and mspvllqhqjls4762-65-67 05:30:55* Test Item Value Reference Range Interpretation Comments WBC (test code = 35845-7) 6.45 4.50- 11.00 k/uL RBC (test code = 83562-1) 3.08 m/uL 4.2-5.5 L HGB (test code = 718-7) 10.1 g/dL 12-16 L HCT (test code = 4544-3) 31.3 % 37-47 L MCV (test code = 787-2) 101.6 fL 82-100 H MCH (test code = 785-6) 32.8 pg 27-34 MCHC (test code = 786-4) 32.3 g/dL 31-37 RDW - SD (test code = 30549-0) 56.0 fL 37-55 H MPV (test code = 29735-6) 12.6 fL 8.8-13.2 Platelet count (test code = 44687-5) 77 150- 400 k/uL L Nucleated RBC (test code = 04620-3) 0.00 /100 WBC Neutrophils (test code = 26420-5) 80.2 % 39-69 H Lymphocytes (test code = 45644-5) 9.6 % 25-45 L Monocytes (test code = 92736-1) 8.8 % 0-10 Eosinophils (test code = 40697-0) 0.9 % 0-5 Basophils (test code = 53964-8) 0.2 % 0-1 Immature granulocytes (test code = 64897-2) 0.3 % 0-1 "Immature granulocytes" (promyelocytes, myelocytes, metamyelocytes) Lab Interpretation (test code = 81525-8) Abnormal Sidney MethodistLactic acid bjlfo9536-49-24 06:22:56* Test Item Value Reference Range Interpretation Comments Lactic acid (test code = 19511-8) 2.9 mmol/L 0.5-2.2 H Lab Interpretation (test code = 55202-3) Abnormal Clemente VnkrketlnIkjzkm7625-08-15 17:41:02aRnda Prabhakar CRNA 11/20/2019 5:45 PMAirwayDate/Time: 11/20/2019 5:05 PMPerformed by: Randa Prabhakar CRNAAuthorized by: Allen Loco MD Location: ORUrgency: ElectiveDifficult Airway: No Anesthesiologist: Allen Loco MDResident/DIRECTOR GIFT/AA: Randa Prabhakar CRNAPerformed by: resident/DIRECTOR GIFT/AAPreoxygenated with 100% O2: Yes C-spine Precautions Maintained Throughout: Yes Mask Ventilation: Not attemptedFinal Airway Type: En dotracheal airwayFinal Endotracheal Airway: ETTCuffed: Yes Technique Used: Di rect laryngoscopyDevices/Methods Used in Placement: Intubating styletInsertion Site: OralBlade Type: MillerLaryngoscope Blade/Videolaryngoscope Blade Size: 2ETT Size (mm): 7.0Cuff at minimum occlusion pressure: Yes Measured from: Lip sETT to Lips (cm): 22Placement Verified by: CO2 detection, direct visualization and equal breath sounds Laryngoscopic view: Grade I - full view of glottisRap id Sequence Induction (RSI): Yes Number of Attempts at Approach: 1 Patient pre oxygenated > 3 minutes. DL X 1 with Pastor 2 blade by DIRECTOR GIFT; grade I view obtained. 7.0 ETT advanced through vocal cords with direct visualization, cuff to occlusive seal, placement confirmed with bilateral chest rise, +mist in ETT, and +etCO2. Atraumatic intubation-lips and gums (patient edentulous). OGT easily placed for case duration, stomach decompressed, and OGT placed to gravity. [place] MethodistPotassium, xohifck4321-73-49 15:46:56* Test Item Value Reference Range Interpretation Comments Potassium, syringe (test code = 2007) 3.2 3.5- 5.0 mEq/L L Lab Interpretation (test code = 80018-6) Abnormal Sidney MethodistType and fqwixz7485-40-29 12:55:00* Test Item Value Reference Range Interpretation Comments ABO grouping (test code = 883-9) O Rh type (test code = 22362-3) POS Antibody screen (gel) (test code = 890-4) NEG [place] MethodistPotassium abzma9586-65-60 12:29:58* Test Item Value Reference Range Interpretation Comments Potassium (test code = 2823-3) 2.8 3.5- 5.0 mEq/L LL Lab Interpretation (test code = 90757-3) Abnormal Sidney MethodistLactic acid level, SEPSIS - Now and repeat 2x every 3 hours 2019-11-20 05:19:56* Test Item Value Reference Range Interpretation Comments Lactic acid (test code = 14843-0) 2.8 mmol/L 0.5-2.2 H Lab Interpretation (test code = 82701-5) Abnormal Sidney MethodistCOVID-19 qualitative HMS8590-73-85 03:11:13* Test Item Value Reference Range Interpretation Comments Interpretation (test code = 1118929) Negative results do not preclude 2019-nCoV infection and should not be used as the sole basis for treatment or other patient management decisions. Negative results must be combined with clinical observations, patient history, and epidemiological information. COVID-19 qualitative PCR result (test code = 28097-6) Not-Detect ed Not-Detected COVID-19 qualitative PCR (test code = 7070) See link below for P DF Lab Report [facility]Ammonia [id number] 01:12:46* Test Item Value Reference Range Interpretation Comments Ammonia (test code = 1841-6) 66 umol/L 11-51 H Lab Interpretation (test code = 08338-5) Abnormal [facility] MethodistAlcohol level, [id number] 00:43:26* Test Item Value Reference Range Interpretation Comments Alcohol percent (test code = 5643-2) None Detected % Normal None DetectedLegal Intoxication in [place] 80 mg/dL (0.08%) - Whole BloodToxic Concentration 200 mg/dL (0.2%)Potentially Fatal 350 - 500 mg/dL (0.35 - 0.5%) [facility] MethodistLipase [id number] 00:43:26* Test Item Value Reference Range Interpretation Comments Lipase (test code = 3040-3) 14 U/L 13-60 [facility] MethodistPartial thromboplastin time, [id number] 00:03:18* Test Item Value Reference Range Interpretation Comments PTT (test code = 91511-8) 33.9 23.0- 36.0 sec PTT therapeutic range for unfractionated heparin is61.0-112.0 seconds which corresponds to Anti-Xa0.3-0.7 U/ml. [facility] MethodistUS GUIDED [id number] 14:27:00 [facility] [place] [address] Patient Name: SUZI SCANLON MR #: [id number] : 1955 Age/Sex: 64/F Req #: [id number] Adm Physician: Ordered by: HARRISON LOPEZ MD Report #: [id number] Location: Room/Bed: Procedure: [id number] US/US IRVIN DED PARACENTESIS Exam Date: 11/16/19 Exam Time: 1343 REPORT STATUS: Signed HISTORY : Symptomatic ascites. Technique/findings: Informed written consent was ob tained. Discussion of risks, benefits, and alternatives were made with the pat ient. The patient expressed understanding and agreed to proceed. A universal timeout was performed prior to starting the procedure. Initial ultrasou nd images demonstrate moderate volume of ascites. A pocket of fluid was identi fied in the left lower quadrant of the abdomen. This area was marked. The area was prepped and draped in the usual sterile fashion. 1% lidocaine was applied to the skin and deep soft tissues. Color ultrasound was used to assess for any vessels within the vicinity of the planned trajectory of the one-step, a image was saved. A 5 Italian one-step catheter was inserted and removed from the p eritoneal space and approximately 3.1 liters of clear yellow ascitic fluid was aspirated from the abdomen. There were no immediate complications. Impression: Successful ultrasound guided paracentesis with aspiration of 3 .1 liters of fluid. Signed by: Laith Sullivan MD on 11/16/2019 2:28 PM Dictated By: LAITH SULLIVAN MD 27 COPY TO: HARRISON VERGARA M.D. US ABDOMEN [id number] 14:49:00 [place] [address] Patient Name: SUZI SCANLON MR #: [id number] : 1955 Age/Sex: 64/F Req #: [id number] Adm Physician: Ordered by: HARRISON LOPEZ MD Report #: [id number] Location: US Room/Bed: Procedure: [id number] US/US ABD OMEN LIMITED Exam Date: 11/09/19 Exam Time: 1340 REPORT STATUS: Signed Abdominal Ult rasound limited. Clinical Diagnosis: Ascites Comparison: None Skip hnique: Multiple transaxial and longitudinal images were obtained through the abdomen with real time ultrasonography. A low-frequency curvilinear transducer was utilized. Multiple images were submitted for interpretation. Re port: Please see impression. Impression: Sonographic evaluation differe nt quadrants of the abdomen revealed a scant amount of ascites. Paracentesis w as therefore not performed on patient's request. Signed by: Santiago Whipple MD on 11/09/2019 2:50 PM Dictated By: SANTIAGO WHIPPLE MD 145 Transcribed By: MELANIE on 10/23 10/11 1450 COPY TO: HARRISON LOPEZ M.D. US GUIDED PARACENTESIS 2019-11-02 15:59:00 [place] [address] Patient Name: SUZI SCANLON MR #: [id number] : 1955 Age/Sex: 64/F Req #: [id number] [facility] Physician: Ordered by: HARRISON LOPEZ MD Report #: [id number] Location: Room/Bed: Procedure: US/US IRVIN DED PARACENTESIS Exam Date: 11/02/19 Exam Time: 1321 REPORT STATUS: Signed PROCEDURE: Ultrasound-guided paracentesis Procedural Personnel Attending physician (s): Delano Weber MD Pre-procedure diagnosis: Ascites Post-procedure diagn osis: Unchanged Indication: Ascites with pain or pressure symptoms Additiona l clinical history: None Complications: No immediate complications. IM PRESSION: Ultrasound-guided paracentesis with drainage of 3300 mL of serous fluid. Plan: Resume care by clinical team. PROCEDURE SUMMARY: - Limited abd ominal ultrasound - Ultrasound-guided paracentesis - Additional procedure(s) : None PROCEDURE DETAILS: Pre-procedure Consent: Informed consent fo r the procedure including risks, benefits and alternatives was obtained and ti me-out was performed prior to the procedure. Preparation: The site was prepare d and draped using maximal sterile barrier technique including cutaneous antis epsis. Anesthesia/sedation Level of anesthesia/sedation: None Initia l abdominal ultrasound Initial abdominal ultrasound was performed. Findings: Large ascites. A safe window for paracentesis was identified. Paracentesis Local anesthesia was administered. The peritoneal cavity was accessed and fluid return confirmed position. Ascites was drained. The catheter was then removed, and a sterile bandage was applied. Paracentesis access technique: Real-time ultrasound guidance. Catheter placed: 5Fr Teresitaeh Post-drainage ultrasound: No visible ascites Additional Details Additional description of procedure: None Equipment details: None Specimens removed: Abdominal fluid Estimated blood loss (mL): Minimal (<10cc) Standardized report: SIR_Paracentesis_v3 Attestation Signer name: Delano Weber MD I attest that I was present for the entire procedure. I reviewed the stored images and agree with the report as written. Signed by: Delano Weber MD on 11/02/2019 3:59 PM Dictated By: DELANO WEBER MD 58 Transcribed By: MELANIE on 11/02/191558 COPY TO: HARRISON LOPEZ M.D. US GUIDED [id number] 14:02:00 [place] [address] Patient Name: SUZI SCANLON MR #: [id number] : 1955 Age/Sex: 64/F Req #: [id number] Adm Physician: Ordered by: HARRISON LOPEZ MD Report #: [id number] Location: Room/Bed: Procedure: US/US IRVIN DED PARACENTESIS Exam Date: 10/26/19 Exam Time: 1311 REPORT STATUS: Signed PROCEDURE: Ultrasound-guided paracentesis Procedural Personnel Attending physician (s): Delano Weber MD Pre-procedure diagnosis: Ascites Post-procedure diagn osis: Unchanged Indication: Ascites with pain or pressure symptoms Additiona l clinical history: None Complications: No immediate complications. IM PRESSION: Ultrasound-guided paracentesis with drainage of 5300 mL of serous fluid. Plan: Resume care by clinical team. PROCEDURE SUMMARY: - Limited abd ominal ultrasound - Ultrasound-guided paracentesis - Additional procedure(s) : None PROCEDURE DETAILS: Pre-procedure Consent: Informed consent fo r the procedure including risks, benefits and alternatives was obtained and ti me-out was performed prior to the procedure. Preparation: The site was prepare d and draped using maximal sterile barrier technique including cutaneous antis epsis. Anesthesia/sedation Level of anesthesia/sedation: None Initia l abdominal ultrasound Initial abdominal ultrasound was performed. Findings: Large ascites. A safe window for paracentesis was identified. Paracentesis Local anesthesia was administered. The peritoneal cavity was accessed and fluid return confirmed position. Ascites was drained. The catheter was then removed, and a sterile bandage was applied. Paracentesis access technique: Real-time ultrasound guidance. Catheter placed: 5Fr Yueh Post-drainage ultrasound: No visible ascites Additional Details Additional description of procedure: None Equipment details: None Specimens removed: Abdominal fluid Estimated blood loss (mL): Minimal (<10cc) Standardized report: SIR_Paracentesis_v3 Attestation Signer name: Delano Weber MD I attest that I was present for the entire procedure. I reviewed the stored images and agree with the report as written. Signed by: Delano Weber MD on 10/26/2019 2:03 PM Dictated By: DELANO WEBER MD 140 Transcribed By: MELANIE on 10/26/19 140 COPY TO: HARRISON LOPEZ M.D. US GUIDED [id number] 14:48:00 [place] [address] Patient Name: SUZI SCANLON MR #: [id number] : 1955 Age/Sex: 64/F Req #: [id number] Adm Physician: Ordered by: HARRISON LOPEZ MD Report #: [id number] Location: Room/Bed: Procedure: US/ IRVIN DED PARACENTESIS Exam Date: 10/19/19 Exam Time: 1401 REPORT STATUS: Signed PROCEDURE: Ultrasound-guided paracentesis Procedural Personnel Attending physician (s): Delano Weber MD Pre-procedure diagnosis: Ascites Post-procedure diagn osis: Unchanged Indication: Ascites with pain or pressure symptoms Additiona l clinical history: None Complications: No immediate complications. IM PRESSION: Ultrasound-guided paracentesis with drainage of 5050 mL of serous fluid. Plan: Resume care by clinical team. PROCEDURE SUMMARY: - Limited abd ominal ultrasound - Ultrasound-guided paracentesis - Additional procedure(s) : None PROCEDURE DETAILS: Pre-procedure Consent: Informed consent fo r the procedure including risks, benefits and alternatives was obtained and ti me-out was performed prior to the procedure. Preparation: The site was prepare d and draped using maximal sterile barrier technique including cutaneous antis epsis. Anesthesia/sedation Level of anesthesia/sedation: None Initia l abdominal ultrasound Initial abdominal ultrasound was performed. Findings: Large ascites. A safe window for paracentesis was identified. Paracentesis Local anesthesia was administered. The peritoneal cavity was accessed and fluid return confirmed position. Ascites was drained. The catheter was then removed, and a sterile bandage was applied. Paracentesis access technique: Real-time ultrasound guidance. Catheter placed: 5Fr Nancy Post-drainage ultrasound: No visible ascites Additional Details Additional description of procedure: None Equipment details: None Specimens removed: Abdominal fluid Estimated blood loss (mL): Minimal (<10cc) Standardized report: SIR_Paracentesis_v3 Attestation Signer name: Delano Weber MD I attest that I was present for the entire procedure. I reviewed the stored images and agree with the report as written. Signed by: Delnao Weber MD on 10/19/2019 3:08 PM Dictated By: DELANO WEBER MD 07 Transcribed By: MELANIE on 10/19/191507 COPY TO: HARRISON LOPEZ M.D. Albumin, [facility] [place] [id number] 16:41:33* Test Item Value Reference Range Interpretation Comments Fluid type (test code = 83331-5) Ascitic Albumin, fluid (test code = 1747-5) 0.5 g/dL The reference interval(s) and other method performance specifications have not been established for this body fluid. The test results must be integrated into the clinical context for interpretation.This test has been modified from the manufacturers instructions. The performance characteristics were determined by [facility] in a manner consistent with CLIA requirements. This test has not been cleared or approved by the U.S. Food and Drug Administration. [facility] Abdomen [id number] 16:25:10Hm Interface, Radiology Results 10/09/2019 4:28 PM CDTEXAM: US ABDOMEN COMPLETECLINICAL HISTORY: CIRRHOSIS, HCC screeningCOMPARISON: NoTECHNIQUE: Complete abdominal ultrasound obtained.FINDINGS:Liver is truncated, lobulated in contours and heterogeneous in echotexture indicating cirrhosis. No focal lesion identified.. Layering sludge in the gallbladder which is borderline distended. Cholelithiasis may also be present. Borderline wall thickening is likely secondary to the ascites. No Leos sign identified. Main portal vein is patent and normal in size, 11 mm. Common bile duct 6 mm within normal range.. .Pancreas mostly obscured by bowel gas. Spleen borderline enlarged, 15 cm without focal lesion. Renal survey images show kidneys measure 9.7 cm on the right and 10.9 cm on the left with no hydronephrosis on either side.Abdominal aorta and IVC mostly obscur ed by bowel gas. Small amount of ascites. No pleural effusionIMPRESSION:1. Cirr hosis and portal hypertension without evidence of HCC.2.Sludge and possibly ston es in the gallbladder, which is borderline distended likely from fasting. The bright rderline gallbladder wall thickening is likely from the ascites. No sonographic Leos sign.3.Other findings as [id number] MethodistT4, free 2019-10-09 07:13:07* Test Item Value Reference Range Interpretation Comments T4, free (test code = 3024-7) 1.5 ng/dL 0.9-1.7 [facility] MethodistThyroid stimulating [id number] 07:13:07* Test Item Value Reference Range Interpretation Comments TSH (test code = 3016-3) 0.59 0.27- 4.20 uIU/mL [facility] MethodistUS GUIDED [id number] 15:27:00 [place] [address] Patient Name: SUZI SCANLON MR #: [id number] : 1955 Age/Sex: 64/F Req #: [id number] Adm Physician: Ordered by: HARRISON LOPEZ MD Report #: [id number] Location: Room/Bed: Procedure: [id number] US/US IRVIN DED PARACENTESIS Exam Date: 09/30/19 Exam Time: 1353 REPORT STATUS: Signed PROCEDURE: Ultrasound-guided paracentesis Procedural Personnel Attending physician (s): Delano Weber MD Pre-procedure diagnosis: Ascites Post-procedure diagn osis: Unchanged Indication: Ascites with pain or pressure symptoms Additiona l clinical history: None Complications: No immediate complications. IM PRESSION: Ultrasound-guided paracentesis with drainage of 5850 mL of serous fluid. Plan: Resume care by clinical team. PROCEDURE SUMMARY: - Limited abd ominal ultrasound - Ultrasound-guided paracentesis - Additional procedure(s) : None PROCEDURE DETAILS: Pre-procedure Consent: Informed consent fo r the procedure including risks, benefits and alternatives was obtained and ti me-out was performed prior to the procedure. Preparation: The site was prepare d and draped using maximal sterile barrier technique including cutaneous antis epsis. Anesthesia/sedation Level of anesthesia/sedation: None Initia l abdominal ultrasound Initial abdominal ultrasound was performed. Findings: Large ascites. A safe window for paracentesis was identified. Paracentesis Local anesthesia was administered. The peritoneal cavity was accessed and fluid return confirmed position. Ascites was drained. The catheter was then removed, and a sterile bandage was applied. Paracentesis access technique: Real-time ultrasound guidance. Catheter placed: 5Fr Nancy Post-drainage ultrasound: No visible ascites Additional Details Additional description of procedure: None Equipment details: None Specimens removed: Abdominal fluid Estimated blood loss (mL): Minimal (<10cc) Standardized report: SIR_Paracentesis_v3 Attestation Signer name: Delano Weber MD I attest that I was present for the entire procedure. I reviewed the stored images and agree with the report as written. Signed by: Delano Weber MD on 09/30/2019 3:28 PM Dictated By: DELANO WEBER MD 1528 Transcribed By: MELANIE on 09/30/19 1528 COPY TO: HARRISON VENCES M.D. US GUIDED [id number] 12:51:00 [place] [address] Patient Name: SUZI SCANLON MR #: [id number] : 1955 Age/Sex: 64/F Req #: [id number] Adm Physician: Ordered by: HARRISON LOPEZ MD Report #: [id number] Location: Room/Bed: Procedure: US/US IRVIN DED PARACENTESIS Exam Date: 09/16/19 Exam Time: 1211 REPORT STATUS: Signed Procedure: Ultrasound-guided paracentesis dip unit operator: Nelson Saucedo MD Pre- operative diagnosis: Ascites Post-operative diagnosis: Ascites Conscious Sedation: None. The patient's heart rate and pulse oximetry were continuously monitored by the IR nurse. Additional Medications: Lidocaine 1% for lo shani anesthesia Estimated blood loss: Less than 1 cc. Specimen: 3950 cc of clear yellow fluid Implants: None TECHNIQUE/FINDINGS: Informed c onsent was obtained from the patient and documented in the medical record. The patient was placed in the supine position. Initial ultrasound demonstrated as cites. The right lower abdomen was prepped and draped in standard sterile fas hion. 1% lidocaine was infiltrated into the skin and subcutaneous tissues for local anesthesia. Then under continuous sonographic guidance, a 5 Fr catheter was advanced into the peritoneal space. The catheter was connected to vacuum b ottle with subsequent evacuation of 3950 cc of serous fluid. The catheter was removed and sterile dressing was applied. The patient tolerated the procedure well. IMPRESSION: Successful ultrasound-guided paracentesis. Signed by: Dr. Nelson Saucedo MD on 09/16/2019 12:51 PM Dictated By: NELSON SAUCEDO MD 1251 Transcribed By: MELANIE on 09/16/19 1251 COPY TO: HARRISON LOPEZ M.D. US GUIDED [id number] 15:51:00 [place] [address] Patient Name: SUZI SCANLON MR #: [id number] : 1955 Age/Sex: 64/F Req #: [id number] Adm Physician: Ordered by: ADAM GALLARDO MD Report #: [id number] Location: Room/Bed: Procedure: US/US GUIDED P ARACENTESIS Exam Date: 09/01/19 Exam Time: 1426 REPORT STATUS: Signed Procedure: Ult rasound-guided paracentesis dip unit operator: Tripp Hammer M.D. Pre- operative diagnosis: Ascites Post-operative diagnosis: Ascites Conscious Sedation: None. The patient's heart rate and pulse oximetry were continuously monitored by the IR nurse. Additional Medications: Lidocaine 1% for loca l anesthesia Estimated blood loss: Less than 1 cc. Specimen: 4600 cc o f clear yellow fluid Implants: None TECHNIQUE/FINDINGS: Informed con sent was obtained from the patient and documented in the medical record. The p atient was placed in the supine position. Initial ultrasound demonstrated asci hector. The right lower abdomen was prepped and draped in standard sterile fashi on. 1% lidocaine was infiltrated into the skin and subcutaneous tissues for lo shani anesthesia. Then under continuous sonographic guidance, a 5 Fr catheter wa s advanced into the peritoneal space. The catheter was connected to vacuum bot tle with subsequent evacuation of 4600 cc of serous fluid. The catheter was r emoved and sterile dressing was applied. Sample was sent to the lab. The patie nt tolerated the procedure well. IMPRESSION: Successful ultrasound-guided paracentesis. Signed by: Tripp Hammer on 09/01/2019 3:51 PM Dictated By: TRIPP HAMMER MD 15 51 Transcribed By: MELANIE on 09/01/19 5346 COPY TO: ADAM GALLARDO MD US PELVIS COMPLETE NON [id number] 10:50:00 [facility] [address] [place] [address] Patient Name: SUZI SCNALON MR #: [id number] : 1955 Age/Sex: 64/F Req #: [id number] Adm Physician: Ordered by: ADAM GALLARDO MD Report #: [id number] Location: US Room/Bed: Procedure: [id number] US/US PELVIS C OMPLETE NON OB Exam Date: 08/13/19 Exam Time: 1001 REPORT STATUS: Signed Ultrasound female pelvis Clinical diagnosis: Left adnexal mass suspected on a recent a bdominal CT. Last menstrual period: Not applicable. The patient is postmeno pausal. The patient is a 0. The patient is not on normal replacement the rapy. There is no history of prior pelvic surgery. Comparison: CT dated . Technique: Multiple transaxial and longitudinal images were obtai laura through the pelvis. Low MHz transducer(s) was(were) utilized transabdomin ally and endovaginally. Color Doppler and spectral waveform analysis images w ere submitted to evaluate for blood flow. Multiple images were submitted for interpretation. Report: Uterus: 4.4 x 2.3 x 3.6 cm with heterogeneous echotexture and calcifications suggestive of degenerated fibroids. Right Ovary: Not visualized Left Ovary: Not visualized Free Fluid: Large v olume ascites. The left adnexal mass as seen on CT is not visualized on thi s exam. Impression: Limited exam due to presence of large volume ascites and free floating loops of bowel. The left adnexal mass as seen on the CT is n ot visualized on this exam. If there is a persistent concern, MRI of the pelvi s may be performed. Signed by: Santiago Whipple MD on 08/13/2019 10:54 AM Dictated By: SANTIAGO WHIPPLE MD 12 Transcribed By: MELANIE on 08/19/191312 COPY TO: ADAM ORTEGA MD US [id number] 10:50:00 [place] [address] Patient Name: SUZI SCANLON MR #: [id number] : 1955 Age/Sex: 64/F Req #: [id number] Adm Physician: Ordered by: ADAM GALLARDO MD Report #: [id number] Location: Room/Bed: Procedure: [id number] US/US TRANSVAG INAL Exam Date: 08/13/19 Exam Time: 1002 REPORT STATUS: Signed Ultrasound female pel vis Clinical diagnosis: Left adnexal mass suspected on a recent abdominal C T. Last menstrual period: Not applicable. The patient is postmenopausal. Th e patient is a 0. The patient is not on normal replacement therapy. Ther e is no history of prior pelvic surgery. Comparison: CT dated 08/04/2019. Technique: Multiple transaxial and longitudinal images were obtained through the pelvis. Low MHz transducer(s) was(were) utilized transabdominally and endovaginally. Color Doppler and spectral waveform analysis images were subm itted to evaluate for blood flow. Multiple images were submitted for interpre tation. Report: Uterus: 4.4 x 2.3 x 3.6 cm with heterogeneous echotext ure and calcifications suggestive of degenerated fibroids. Right Ovary: N ot visualized Left Ovary: Not visualized Free Fluid: Large volume asci hector. The left adnexal mass as seen on CT is not visualized on this exam. Impression: Limited exam due to presence of large volume ascites and free f loating loops of bowel. The left adnexal mass as seen on the CT is not visuali zed on this exam. If there is a persistent concern, MRI of the pelvis may be p erformed. Signed by: Santiago Whipple MD on 08/13/2019 10:54 AM Dictate d By: SANTIAGO WHIPPLE MD 12 COPY TO: LINETTE GALLARDO MD CT ABDOMEN/PELVIS [id number] 09:18:00 [place] [address] Patient Name: SUZI SCANLON MR #: [id number] : 1955 Age/Sex: 64/F Req #: [id number] Adm Physician: Ordered by: ADAM GALLARDO MD Report #: [id number] Location: OR Room/Bed: Procedure: [id number] CT/CT ABDOMEN/ PELVIS WO Exam Date: 08/04/19 Exam Time: 1235 REPORT STATUS: Signed TECHNIQUE: CT of the abdomen and pelvis WITHOUT intravenous contrast and WITHOUT oral contrast. Dose modulation, iterative reconstruction, and/or weight-based adjustment of the mA/kV was utilized to reduce the radiation dose to as low as reasonably a chievable. INDICATION: 64-year-old woman with abdominal pain after EGD. COMPARISON: None. FINDINGS: ABSENCE OF INTRAVENOUS CONTRAST DECRE ASES SENSITIVITY FOR DETECTION OF FOCAL LESIONS AND VASCULAR PATHOLOGY. L OWER THORAX: Mild dependent atelectasis in both lower lobes. Atherosclerotic c oronary artery calcifications. HEPATOBILIARY: Cirrhotic morphology of the l iver. No definite focal hepatic lesions. Cholelithiasis with nonspecific diste ntion of the gallbladder up to 4.6 cm in transverse dimension. No biliary duct al dilatation. SPLEEN: Spleen is prominent and measures 13.2 cm in the cranioc audal dimension. PANCREAS: No focal masses or ductal dilatation. ADRENALS : No adrenal nodules. KIDNEYS/URETERS: No hydronephrosis, stones, or solid mas s lesions. PELVIC ORGANS/BLADDER: 2 x 3.2 cm soft tissue structure in the left adnexum abuts the left uterine body. Bladder is unremarkable. PERITONEUM /RETROPERITONEUM: Large volume ascites. No free air. LYMPH NODES: No lymphaden opathy. VESSELS: Atherosclerotic vascular calcifications in the abdominal aort a and bilateral iliac arteries without aneurysm. GI TRACT: Apparent mildl y thickened wall of the stomach. No bowel obstruction. Normal appendix. B ONES AND SOFT TISSUES: Mild degenerative changes of the visualized spine. Natalie umbilical ventral hernia contains a nonstrangulated loop of small bowel and as citic fluid. Large left inguinal hernia contains ascitic fluid. IMPRESSI ON: Cirrhosis with portal hypertension and large volume ascites. Apparent mildly thickened wall of the stomach may be due to underdistention, portal ga stropathy, or gastritis. This finding may be correlated with the recently perf ormed EGD. Cholelithiasis with nonspecific distention of the gallbladder. 3.2 cm soft tissue structure in the left adnexum. Differential considerations include subserosal uterine fibroid and asymmetrically prominent left ovary. Nonemergent pelvis ultrasound may be obtained for further evaluation. Sig laura by: Dayron Epstein MD on 08/05/2019 9:32 AM Dictated By: DAYRON JONES MD 1 Transcribed By: MELANIE on 08/05/19931 COPY TO: ADAM GALLARDO MD PROTHROMBIN [id number] 16:50:00* Test Item Value Reference Range Interpretation Comments PROTHROMBIN TIME PATIENT (test code = PTP) 15.5 seconds 9.0-14.0 H INTERNATIONAL NORMAL RATIO (test code = INR) 1.3 0.8-1.2 H The therapeutic range for oral anticoagulant therapy formost indications is an international normalized ratio (INR)of between 2.0 and 3.0. The recommended therapeutic INRrange for various clinical situations is listed below: Clinical Situation INR range Pulmonary e mbolism treatment (2.0-3.0)Venous thrombosis treatmentVenous thrombosis prophylaxis (high risk surgery)Prevention of systemic embolism from: Acute myocardial infarction Valvular heart disease Atrial fibrillation Mechanical prosthetic heart valves (2.5-3.5) THROMBOPLASTIN TIME [id number] 16:50:00* Test Item Value Reference Range Interpretation Comments THROMBOPLASTIN TIME PARTIAL (test code = PTT) 40.8 seconds 25.0-36. 5 H [id number] 16:50:00* Test Item Value Reference Range Interpretation Comments FIBRINOGEN (test code = FIB) 100 mg/dL 200-400 L FIBRIN SPLIT [id number] 16:50:00* Test Item Value Reference Range Interpretation Comments FIBRIN SPLIT PRODUCT (test code = FSP) TEST NOT PERFORMED mcg/mL < 5 [id number] 16:50:00* Test Item Value Reference Range Interpretation Comments D-DIMER (test code = DDIMER) 5166.00 ng/mLFEU 0-500 HH Results called to [id number] results verified and read back by Nurse? YClinical Cut-off value for D-Dimer is 500 ng/mL FEU. Comment: The [employer] D-Dimer assay is intended for use asan aid in the diagnosis of venous thromboembolism (VTE)[deep vein thrombosis (DVT) or pulmonary embolism (PE)].The measurement of D-Dimer should not be used as an aid inthe diagnosis of VTE, in patient with: -Therapeutic dose anticoagulant therapy for >24 hours -Fibrinolytic therapy within previous 7 days -Trauma or surgery within previous 4 weeks -Disseminated malignancies -Aortic aneurysm -Sepsis, severe infections, pneumonia, severe skin infections -Liver cirrhosis - ANTITHROMBIN III (ATIII)2019-08-04 16:50:00* Test Item Value Reference Range Interpretation Comments ANTITHROMBIN III (ATIII) (test code = AT3) TEST NOT PERFORMED % 75- 135 PROTHROMBIN [id number] 16:43:00* Test Item Value Reference Range Interpretation Comments PROTHROMBIN TIME PATIENT (test code = PTP) 17.0 seconds 9.0-14.0 H INTERNATIONAL NORMAL RATIO (test code = INR) 1.5 0.8-1.2 H The therapeutic range for oral anticoagulant therapy formost indications is an international normalized ratio (INR)of between 2.0 and 3.0. The recommended therapeutic INRrange for various clinical situations is listed below: Clinical Situation INR range Pulmonary e mbolism treatment (2.0-3.0)Venous thrombosis treatmentVenous thrombosis prophylaxis (high risk surgery)Prevention of systemic embolism from: Acute myocardial infarction Valvular heart disease Atrial fibrillation Mechanical prosthetic heart valves (2.5-3.5) THROMBOPLASTIN TIME [id number] 16:43:00* Test Item Value Reference Range Interpretation Comments THROMBOPLASTIN TIME PARTIAL (test code = PTT) 38.0 seconds 25.0-36. 5 H [id number] 16:43:00* Test Item Value Reference Range Interpretation Comments FIBRINOGEN (test code = FIB) 106 mg/dL 200-400 L FIBRIN SPLIT [id number] 16:43:00* Test Item Value Reference Range Interpretation Comments FIBRIN SPLIT PRODUCT (test code = FSP) TEST NOT PERFORMED mcg/mL < 5 [id number] 16:43:00* Test Item Value Reference Range Interpretation Comments D-DIMER (test code = DDIMER) 4562.00 ng/mLFEU 0-500 HH Results called to [id number] [email or web address] 06/02/19 0337Critical results verified and read back by Nurse? YESClinical Cut-off value for D-Dimer is 500 ng/mL FEU. Comment: The [employer] D-Dimer assay is intended for use asan aid in the diagnosis of venous thromboembolism (VTE)[deep vein thrombosis (DVT) or pulmonary embolism (PE)].The measurement of D-Dimer should not be used as an aid inthe diagnosis of VTE, in patient with: -Therapeutic dose anticoagulant therapy for >24 hours - Fibrinolytic therapy within previous 7 days -Trauma or surgery within previous 4 weeks -Disseminated malignancies -Aortic aneurysm -Sepsis, severe infections, pneumonia, severe skin infections -Liver cirrhosis - ANTITHROMBIN III (ATIII)2019-08-04 16:43:00* Test Item Value Reference Range Interpretation Comments ANTITHROMBIN III (ATIII) (test code = AT3) TEST NOT PERFORMED % 75- 135 US GUIDED [id number] 15:11:00 [place] [id number] Patient Name: SUZI SCANLON MR #: [id number] : 1955 Age/Sex: 64/F Req #: [id number] Adm Physician: Ordered by: ADAM GALLARDO MD Report #: [id number] Location: OR Room/Bed: Procedure: [id number] US/US GUIDED P ARACENTESIS Exam Date: 08/04/19 Exam Time: 1439 REPORT STATUS: Signed Procedure: Ult rasound-guided paracentesis dip unit operator: Nelson Saucedo MD Pre-ope rative diagnosis: Ascites Post-operative diagnosis: Ascites Conscious Sed ation: None. The patient's heart rate and pulse oximetry were continuously mon itored by the IR nurse. Additional Medications: Lidocaine 1% for local a nesthesia Estimated blood loss: Less than 1 cc. Specimen: 5400 cc of m aterial yellow fluid Implants: None TECHNIQUE/FINDINGS: Informed con sent was obtained from the patient and documented in the medical record. The p atient was placed in the supine position. Initial ultrasound demonstrated asci hector. The right lower abdomen was prepped and draped in standard sterile fashi on. 1% lidocaine was infiltrated into the skin and subcutaneous tissues for lo shani anesthesia. Then under continuous sonographic guidance, a 5 Fr catheter wa s advanced into the peritoneal space. The catheter was connected to vacuum bot tle with subsequent evacuation of 5400 cc of serous fluid. The catheter was r emoved and sterile dressing was applied. Sample was sent to the lab. The patie nt tolerated the procedure well. IMPRESSION: Successful ultrasound- guided paracentesis. Signed by: Delano Weber MD on 08/05/2019 10:55 AM Dictated By: DELANO WEBER MD 105 Transcribed By: MELANIE on 08/05/19 1055 COPY TO: ADAM GALLARDO MD [id number] 07:55:00* Test Item Value Reference Range Interpretation Comments GLUBED (test code = GLUBED) 104 mg/dL 74-106 N Performed by certified die cutting machine operator at [facility] BASIC METABOLIC [id number] 06:11:00* Test Item Value Reference Range Interpretation Comments SODIUM (test code = NA) 133 mmol/L 136-145 L POTASSIUM (test code = K) 4.1 mmol/L 3.5-5.1 N CHLORIDE (test code = CL) 99.0 mmol/L 98-107 N CARBON DIOXIDE (test code = CO2) 25.0 mmol/L 21-32 N ANION GAP (test code = GAP) 13.1 10-20 N GLUCOSE (test code = GLU) 142 mg/dL 74-106 H BLOOD UREA NITROGEN (test code = BUN) 31 mg/dL 7-18 H GLOMERULAR FILTRATION RATE (test code = GFR) > 60 mL/min >=60 Estimated GFR by using Modified MDRD formula.Chronic kidney disease is defined as either kidney damageor GFR <60 mL/min/1.73 m2 for >3 months. CREATININE (test code = CREAT) 0.80 mg/dL 0.55-1.02 N Note change in reference range due to change in reagent. BUN/CREATININE RATIO (test code = BUN/CREA) 38.8 10-20 H CALCIUM (test code = CA) 7.4 mg/dL 8.5-10.1 L [id number] 06:11:00* Test Item Value Reference Range Interpretation Comments PHOSPHORUS (test code = PHOS) 2.4 mg/dL 2.5-4.9 L [id number] 06:11:00* Test Item Value Reference Range Interpretation Comments MAGNESIUM (test code = MAG) 2.0 mg/dL 1.8-2.4 N BASIC METABOLIC [id number] 06:08:00* Test Item Value Reference Range Interpretation Comments SODIUM (test code = NA) 133 mmol/L 136-145 L POTASSIUM (test code = K) 4.1 mmol/L 3.5-5.1 N CHLORIDE (test code = CL) 99.0 mmol/L 98-107 N CARBON DIOXIDE (test code = CO2) mmol/L 21-32 ANION GAP (test code = GAP) 10-20 GLUCOSE (test code = GLU) mg/dL 74-106 BLOOD UREA NITROGEN (test code = BUN) mg/dL 7-18 GLOMERULAR FILTRATION RATE (test code = GFR) mL/min >=60 CREATININE (test code = CREAT) mg/dL 0.55-1.02 BUN/CREATININE RATIO (test code = BUN/CREA) 10-20 CALCIUM (test code = CA) mg/dL 8.5-10.1 [id number] 06:08:00* Test Item Value Reference Range Interpretation Comments PHOSPHORUS (test code = PHOS) mg/dL 2.5-4.9 [id number] 06:08:00* Test Item Value Reference Range Interpretation Comments MAGNESIUM (test code = MAG) mg/dL 1.8-2.4 CBC W/AUTO [id number] 06:07:00* Test Item Value Reference Range Interpretation Comments WHITE BLOOD CELL (test code = WBC) 11.6 K/mm3 4.5-12.5 N RED BLOOD CELL (test code = RBC) 3.50 mill/mm3 3.7-5.2 L HEMOGLOBIN (test code = HGB) 11.6 gram/dL 11.5-15.5 N HEMATOCRIT (test code = HCT) 35.5 % 36.0-46.0 L MEAN CELL VOLUME (test code = MCV) 101.4 fL 80-98 H MEAN CELL HGB (test code = MCH) 33.1 picogram 27.0-33.0 H MEAN CELL HGB CONCETRATION (test code = MCHC) 32.7 gram/dL 33.0-36. 0 L RED CELL DISTRIBUTION WIDTH (test code = RDW) 22.6 % 11.6-16. 2 H RED CELL DISTRIBUTION WIDTH SD (test code = RDW-SD) 80.9 fL 37 .0-51.0 H PLATELET COUNT (test code = PLT) 85 K/mm3 150-450 L MEAN PLATELET VOLUME (test code = MPV) 13.5 fL 6.7-11.0 H NEUTROPHIL % (test code = NT%) 81.7 % 39.0-69.0 H IMMATURE GRANULOCYTE % (test code = IG%) 1.3 % 0.0-5.0 N LYMPHOCYTE % (test code = LY%) 7.3 % 25.0-55.0 L MONOCYTE % (test code = MO%) 8.0 % 0.0-10.0 N EOSINOPHIL % (test code = EO%) 1.4 % 0.0-5.0 N BASOPHIL % (test code = BA%) 0.3 % 0.0-1.0 N NUCLEATED RBC % (test code = NRBC%) 0.0 % 0-0 N NEUTROPHIL # (test code = NT#) 9.47 K/mm3 1.8-7.7 H IMMATURE GRANULOCYTE # (test code = IG#) 0.15 x10 3/uL 0-0.03 H LYMPHOCYTE # (test code = LY#) 0.84 K/mm3 1.0-5.0 L MONOCYTE # (test code = MO#) 0.93 K/mm3 0-0.8 H EOSINOPHIL # (test code = EO#) 0.16 K/mm3 0.0-0.5 N BASOPHIL # (test code = BA#) 0.03 K/mm3 0.0-0.2 N NUCLEATED RBC # (test code = NRBC#) 0.00 K/mm3 0.0-0.1 N MANUAL DIFF REQUIRED (test code = MDIFF) NO, ONLY SCAN NEEDED DIFFERENTIAL [id number] 06:07:00* Test Item Value Reference Range Interpretation Comments STAIN ACCEPTABILITY (test code = STN ACCEPTABLE) STAIN ACCEPTABLE POLYCHROMASIA (test code = POLC) 1+ POIKILOCYTOSIS (test code = POIK) 1+ ANISOCYTOSIS (test code = ANISO) 3+ MACROCYTOSIS (test code = MACR) 3+ ANNITA CELLS (test code = ANNITA) 1+ NONE PLATELET ESTIMATE (test code = PLTEST) DECREASED PLATELET MORPHOLOGY (test code = PLTMORPH) NORMAL CBC W/AUTO [id number] 05:41:00* Test Item Value Reference Range Interpretation Comments WHITE BLOOD CELL (test code = WBC) 11.6 K/mm3 4.5-12.5 N RED BLOOD CELL (test code = RBC) 3.50 mill/mm3 3.7-5.2 L HEMOGLOBIN (test code = HGB) 11.6 gram/dL 11.5-15.5 N HEMATOCRIT (test code = HCT) 35.5 % 36.0-46.0 L MEAN CELL VOLUME (test code = MCV) 101.4 fL 80-98 H MEAN CELL HGB (test code = MCH) 33.1 picogram 27.0-33.0 H MEAN CELL HGB CONCETRATION (test code = MCHC) 32.7 gram/dL 33.0-36. 0 L RED CELL DISTRIBUTION WIDTH (test code = RDW) 22.6 % 11.6-16. 2 H RED CELL DISTRIBUTION WIDTH SD (test code = RDW-SD) 80.9 fL 37 .0-51.0 H PLATELET COUNT (test code = PLT) 85 K/mm3 150-450 L MEAN PLATELET VOLUME (test code = MPV) 13.5 fL 6.7-11.0 H NEUTROPHIL % (test code = NT%) 81.7 % 39.0-69.0 H IMMATURE GRANULOCYTE % (test code = IG%) 1.3 % 0.0-5.0 N LYMPHOCYTE % (test code = LY%) 7.3 % 25.0-55.0 L MONOCYTE % (test code = MO%) 8.0 % 0.0-10.0 N EOSINOPHIL % (test code = EO%) 1.4 % 0.0-5.0 N BASOPHIL % (test code = BA%) 0.3 % 0.0-1.0 N NUCLEATED RBC % (test code = NRBC%) 0.0 % 0-0 N NEUTROPHIL # (test code = NT#) 9.47 K/mm3 1.8-7.7 H IMMATURE GRANULOCYTE # (test code = IG#) 0.15 x10 3/uL 0-0.03 H LYMPHOCYTE # (test code = LY#) 0.84 K/mm3 1.0-5.0 L MONOCYTE # (test code = MO#) 0.93 K/mm3 0-0.8 H EOSINOPHIL # (test code = EO#) 0.16 K/mm3 0.0-0.5 N BASOPHIL # (test code = BA#) 0.03 K/mm3 0.0-0.2 N NUCLEATED RBC # (test code = NRBC#) 0.00 K/mm3 0.0-0.1 N MANUAL DIFF REQUIRED (test code = MDIFF) NO, ONLY SCAN NEEDED DIFFERENTIAL [id number] 05:41:00* Test Item Value Reference Range Interpretation Comments STAIN ACCEPTABILITY (test code = STN ACCEPTABLE) CABOT RINGS (test code = CAB) MORPHOLOGY COMMENT (test code = MOC) PLATELET ESTIMATE (test code = PLTEST) PLATELET MORPHOLOGY (test code = PLTMORPH) CBC W/AUTO [id number] 05:41:00* Test Item Value Reference Range Interpretation Comments WHITE BLOOD CELL (test code = WBC) 11.6 K/mm3 4.5-12.5 N RED BLOOD CELL (test code = RBC) 3.50 mill/mm3 3.7-5.2 L HEMOGLOBIN (test code = HGB) 11.6 gram/dL 11.5-15.5 N HEMATOCRIT (test code = HCT) 35.5 % 36.0-46.0 L MEAN CELL VOLUME (test code = MCV) 101.4 fL 80-98 H MEAN CELL HGB (test code = MCH) 33.1 picogram 27.0-33.0 H MEAN CELL HGB CONCETRATION (test code = MCHC) 32.7 gram/dL 33.0-36. 0 L RED CELL DISTRIBUTION WIDTH (test code = RDW) 22.6 % 11.6-16. 2 H RED CELL DISTRIBUTION WIDTH SD (test code = RDW-SD) 80.9 fL 37 .0-51.0 H PLATELET COUNT (test code = PLT) 85 K/mm3 150-450 L MEAN PLATELET VOLUME (test code = MPV) 13.5 fL 6.7-11.0 H NEUTROPHIL % (test code = NT%) 81.7 % 39.0-69.0 H IMMATURE GRANULOCYTE % (test code = IG%) 1.3 % 0.0-5.0 N LYMPHOCYTE % (test code = LY%) 7.3 % 25.0-55.0 L MONOCYTE % (test code = MO%) 8.0 % 0.0-10.0 N EOSINOPHIL % (test code = EO%) 1.4 % 0.0-5.0 N BASOPHIL % (test code = BA%) 0.3 % 0.0-1.0 N NUCLEATED RBC % (test code = NRBC%) 0.0 % 0-0 N NEUTROPHIL # (test code = NT#) 9.47 K/mm3 1.8-7.7 H IMMATURE GRANULOCYTE # (test code = IG#) 0.15 x10 3/uL 0-0.03 H LYMPHOCYTE # (test code = LY#) 0.84 K/mm3 1.0-5.0 L MONOCYTE # (test code = MO#) 0.93 K/mm3 0-0.8 H EOSINOPHIL # (test code = EO#) 0.16 K/mm3 0.0-0.5 N BASOPHIL # (test code = BA#) 0.03 K/mm3 0.0-0.2 N NUCLEATED RBC # (test code = NRBC#) 0.00 K/mm3 0.0-0.1 N MANUAL DIFF REQUIRED (test code = MDIFF) NO, ONLY SCAN NEEDED DIFFERENTIAL [id number] 05:41:00* Test Item Value Reference Range Interpretation Comments STAIN ACCEPTABILITY (test code = STN ACCEPTABLE) MORPHOLOGY COMMENT (test code = MOC) PLATELET ESTIMATE (test code = PLTEST) PLATELET MORPHOLOGY (test code = PLTMORPH) CBC W/AUTO [id number] 05:40:00* Test Item Value Reference Range Interpretation Comments WHITE BLOOD CELL (test code = WBC) 11.6 K/mm3 4.5-12.5 N RED BLOOD CELL (test code = RBC) 3.50 mill/mm3 3.7-5.2 L HEMOGLOBIN (test code = HGB) 11.6 gram/dL 11.5-15.5 N HEMATOCRIT (test code = HCT) 35.5 % 36.0-46.0 L MEAN CELL VOLUME (test code = MCV) 101.4 fL 80-98 H MEAN CELL HGB (test code = MCH) 33.1 picogram 27.0-33.0 H MEAN CELL HGB CONCETRATION (test code = MCHC) 32.7 gram/dL 33.0-36. 0 L RED CELL DISTRIBUTION WIDTH (test code = RDW) 22.6 % 11.6-16. 2 H RED CELL DISTRIBUTION WIDTH SD (test code = RDW-SD) 80.9 fL 37 .0-51.0 H PLATELET COUNT (test code = PLT) 85 K/mm3 150-450 L MEAN PLATELET VOLUME (test code = MPV) 13.5 fL 6.7-11.0 H NEUTROPHIL % (test code = NT%) 81.7 % 39.0-69.0 H IMMATURE GRANULOCYTE % (test code = IG%) 1.3 % 0.0-5.0 N LYMPHOCYTE % (test code = LY%) 7.3 % 25.0-55.0 L MONOCYTE % (test code = MO%) 8.0 % 0.0-10.0 N EOSINOPHIL % (test code = EO%) 1.4 % 0.0-5.0 N BASOPHIL % (test code = BA%) 0.3 % 0.0-1.0 N NUCLEATED RBC % (test code = NRBC%) 0.0 % 0-0 N NEUTROPHIL # (test code = NT#) 9.47 K/mm3 1.8-7.7 H IMMATURE GRANULOCYTE # (test code = IG#) 0.15 x10 3/uL 0-0.03 H LYMPHOCYTE # (test code = LY#) 0.84 K/mm3 1.0-5.0 L MONOCYTE # (test code = MO#) 0.93 K/mm3 0-0.8 H EOSINOPHIL # (test code = EO#) 0.16 K/mm3 0.0-0.5 N BASOPHIL # (test code = BA#) 0.03 K/mm3 0.0-0.2 N NUCLEATED RBC # (test code = NRBC#) 0.00 K/mm3 0.0-0.1 N MANUAL DIFF REQUIRED (test code = MDIFF) NO, ONLY SCAN NEEDED DIFFERENTIAL [id number] 05:40:00* Test Item Value Reference Range Interpretation Comments STAIN ACCEPTABILITY (test code = STN ACCEPTABLE) CABOT RINGS (test code = CAB) MORPHOLOGY COMMENT (test code = MOC) PLATELET ESTIMATE (test code = PLTEST) PLATELET MORPHOLOGY (test code = PLTMORPH) CBC W/AUTO [id number] 05:40:00* Test Item Value Reference Range Interpretation Comments WHITE BLOOD CELL (test code = WBC) 11.6 K/mm3 4.5-12.5 N RED BLOOD CELL (test code = RBC) 3.50 mill/mm3 3.7-5.2 L HEMOGLOBIN (test code = HGB) 11.6 gram/dL 11.5-15.5 N HEMATOCRIT (test code = HCT) 35.5 % 36.0-46.0 L MEAN CELL VOLUME (test code = MCV) 101.4 fL 80-98 H MEAN CELL HGB (test code = MCH) 33.1 picogram 27.0-33.0 H MEAN CELL HGB CONCETRATION (test code = MCHC) 32.7 gram/dL 33.0-36. 0 L RED CELL DISTRIBUTION WIDTH (test code = RDW) 22.6 % 11.6-16. 2 H RED CELL DISTRIBUTION WIDTH SD (test code = RDW-SD) 80.9 fL 37 .0-51.0 H PLATELET COUNT (test code = PLT) 85 K/mm3 150-450 L MEAN PLATELET VOLUME (test code = MPV) 13.5 fL 6.7-11.0 H NEUTROPHIL % (test code = NT%) 81.7 % 39.0-69.0 H IMMATURE GRANULOCYTE % (test code = IG%) 1.3 % 0.0-5.0 N LYMPHOCYTE % (test code = LY%) 7.3 % 25.0-55.0 L MONOCYTE % (test code = MO%) 8.0 % 0.0-10.0 N EOSINOPHIL % (test code = EO%) 1.4 % 0.0-5.0 N BASOPHIL % (test code = BA%) 0.3 % 0.0-1.0 N NUCLEATED RBC % (test code = NRBC%) 0.0 % 0-0 N NEUTROPHIL # (test code = NT#) 9.47 K/mm3 1.8-7.7 H IMMATURE GRANULOCYTE # (test code = IG#) 0.15 x10 3/uL 0-0.03 H LYMPHOCYTE # (test code = LY#) 0.84 K/mm3 1.0-5.0 L MONOCYTE # (test code = MO#) 0.93 K/mm3 0-0.8 H EOSINOPHIL # (test code = EO#) 0.16 K/mm3 0.0-0.5 N BASOPHIL # (test code = BA#) 0.03 K/mm3 0.0-0.2 N NUCLEATED RBC # (test code = NRBC#) 0.00 K/mm3 0.0-0.1 N MANUAL DIFF REQUIRED (test code = MDIFF) NO, ONLY SCAN NEEDED DIFFERENTIAL [id number] 05:40:00* Test Item Value Reference Range Interpretation Comments STAIN ACCEPTABILITY (test code = STN ACCEPTABLE) CABOT RINGS (test code = CAB) MORPHOLOGY COMMENT (test code = MOC) PLATELET ESTIMATE (test code = PLTEST) PLATELET MORPHOLOGY (test code = PLTMORPH) CBC W/AUTO [id number] 05:37:00* Test Item Value Reference Range Interpretation Comments WHITE BLOOD CELL (test code = WBC) K/mm3 4.5-12.5 RED BLOOD CELL (test code = RBC) mill/mm3 3.7-5.2 HEMOGLOBIN (test code = HGB) 11.6 gram/dL 11.5-15.5 N HEMATOCRIT (test code = HCT) % 36.0-46.0 MEAN CELL VOLUME (test code = MCV) fL 80-98 MEAN CELL HGB (test code = MCH) picogram 27.0-33.0 MEAN CELL HGB CONCETRATION (test code = MCHC) gram/dL 33.0-36. 0 RED CELL DISTRIBUTION WIDTH (test code = RDW) % 11.6-16. 2 RED CELL DISTRIBUTION WIDTH SD (test code = RDW-SD) fL 37 .0-51.0 PLATELET COUNT (test code = PLT) K/mm3 150-450 MEAN PLATELET VOLUME (test code = MPV) fL 6.7-11.0 NEUTROPHIL % (test code = NT%) % 39.0-69.0 IMMATURE GRANULOCYTE % (test code = IG%) % 0.0-5.0 LYMPHOCYTE % (test code = LY%) % 25.0-55.0 MONOCYTE % (test code = MO%) % 0.0-10.0 EOSINOPHIL % (test code = EO%) % 0.0-5.0 BASOPHIL % (test code = BA%) % 0.0-1.0 NEUTROPHIL # (test code = NT#) K/mm3 1.8-7.7 LYMPHOCYTE # (test code = LY#) K/mm3 1.0-5.0 MONOCYTE # (test code = MO#) K/mm3 0-0.8 EOSINOPHIL # (test code = EO#) K/mm3 0.0-0.5 BASOPHIL # (test code = BA#) K/mm3 0.0-0.2 [id number] 20:48:00* Test Item Value Reference Range Interpretation Comments GLUBED (test code = GLUBED) 205 mg/dL 74-106 H Performed by certified die cutting machine operator at [facility] [id number] 16:40:00* Test Item Value Reference Range Interpretation Comments GLUBED (test code = GLUBED) 132 mg/dL 74-106 H Performed by certified die cutting machine operator at [facility] [id number] 12:03:00* Test Item Value Reference Range Interpretation Comments GLUBED (test code = GLUBED) 169 mg/dL 74-106 H Performed by certified die cutting machine operator at [facility] [id number] 08:17:00* Test Item Value Reference Range Interpretation Comments GLUBED (test code = GLUBED) 90 mg/dL 74-106 N Performed by certified die cutting machine operator at [facility] [id number] 21:38:00* Test Item Value Reference Range Interpretation Comments GLUBED (test code = GLUBED) 256 mg/dL 74-106 H Performed by certified die cutting machine operator at [facility] [id number] 18:16:00* Test Item Value Reference Range Interpretation Comments GLUBED (test code = GLUBED) 210 mg/dL 74-106 H Performed by certified die cutting machine operator at [facility] CBC W/AUTO [id number] 11:26:00* Test Item Value Reference Range Interpretation Comments WHITE BLOOD CELL (test code = WBC) 14.3 K/mm3 4.5-12.5 H RED BLOOD CELL (test code = RBC) 3.38 mill/mm3 3.7-5.2 L HEMOGLOBIN (test code = HGB) 11.2 gram/dL 11.5-15.5 L HEMATOCRIT (test code = HCT) 34.1 % 36.0-46.0 L MEAN CELL VOLUME (test code = MCV) 100.9 fL 80-98 H MEAN CELL HGB (test code = MCH) 33.1 picogram 27.0-33.0 H MEAN CELL HGB CONCETRATION (test code = MCHC) 32.8 gram/dL 33.0-36. 0 L RED CELL DISTRIBUTION WIDTH (test code = RDW) 22.0 % 11.6-16. 2 H RED CELL DISTRIBUTION WIDTH SD (test code = RDW-SD) 78.9 fL 37 .0-51.0 H PLATELET COUNT (test code = PLT) 83 K/mm3 150-450 L MEAN PLATELET VOLUME (test code = MPV) 13.9 fL 6.7-11.0 H NEUTROPHIL % (test code = NT%) 82.9 % 39.0-69.0 H IMMATURE GRANULOCYTE % (test code = IG%) 1.6 % 0.0-5.0 N LYMPHOCYTE % (test code = LY%) 6.4 % 25.0-55.0 L MONOCYTE % (test code = MO%) 8.0 % 0.0-10.0 N EOSINOPHIL % (test code = EO%) 0.8 % 0.0-5.0 N BASOPHIL % (test code = BA%) 0.3 % 0.0-1.0 N NUCLEATED RBC % (test code = NRBC%) 0.0 % 0-0 N NEUTROPHIL # (test code = NT#) 11.88 K/mm3 1.8-7.7 H IMMATURE GRANULOCYTE # (test code = IG#) 0.23 x10 3/uL 0-0.03 H LYMPHOCYTE # (test code = LY#) 0.91 K/mm3 1.0-5.0 L MONOCYTE # (test code = MO#) 1.14 K/mm3 0-0.8 H EOSINOPHIL # (test code = EO#) 0.11 K/mm3 0.0-0.5 N BASOPHIL # (test code = BA#) 0.04 K/mm3 0.0-0.2 N NUCLEATED RBC # (test code = NRBC#) 0.00 K/mm3 0.0-0.1 N MANUAL DIFF REQUIRED (test code = MDIFF) NO, ONLY SCAN NEEDED DIFFERENTIAL [id number] 11:26:00* Test Item Value Reference Range Interpretation Comments STAIN ACCEPTABILITY (test code = STN ACCEPTABLE) STAIN ACCEPTABLE ANISOCYTOSIS (test code = ANISO) 1+ MACROCYTOSIS (test code = MACR) 1+ PLATELET ESTIMATE (test code = PLTEST) DECREASED PLATELET MORPHOLOGY (test code = PLTMORPH) APPEAR LARGE BASIC METABOLIC [id number] 10:48:00* Test Item Value Reference Range Interpretation Comments SODIUM (test code = NA) 132 mmol/L 136-145 L POTASSIUM (test code = K) 4.8 mmol/L 3.5-5.1 N CHLORIDE (test code = CL) 100.0 mmol/L 98-107 N CARBON DIOXIDE (test code = CO2) 28.0 mmol/L 21-32 N ANION GAP (test code = GAP) 8.8 10-20 L GLUCOSE (test code = GLU) 91 mg/dL 74-106 N BLOOD UREA NITROGEN (test code = BUN) 29 mg/dL 7-18 H GLOMERULAR FILTRATION RATE (test code = GFR) > 60 mL/min >=60 Estimated GFR by using Modified MDRD formula.Chronic kidney disease is defined as either kidney damageor GFR <60 mL/min/1.73 m2 for >3 months. CREATININE (test code = CREAT) 0.50 mg/dL 0.55-1.02 L Note change in reference range due to change in reagent. BUN/CREATININE RATIO (test code = BUN/CREA) 58.0 10-20 H CALCIUM (test code = CA) 7.5 mg/dL 8.5-10.1 L BASIC METABOLIC [id number] 10:48:00* Test Item Value Reference Range Interpretation Comments SODIUM (test code = NA) 132 mmol/L 136-145 L POTASSIUM (test code = K) 4.8 mmol/L 3.5-5.1 N CHLORIDE (test code = CL) 100.0 mmol/L 98-107 N CARBON DIOXIDE (test code = CO2) 28.0 mmol/L 21-32 N ANION GAP (test code = GAP) 8.8 10-20 L GLUCOSE (test code = GLU) 91 mg/dL 74-106 N BLOOD UREA NITROGEN (test code = BUN) 29 mg/dL 7-18 H GLOMERULAR FILTRATION RATE (test code = GFR) > 60 mL/min >=60 Estimated GFR by using Modified MDRD formula.Chronic kidney disease is defined as either kidney damageor GFR <60 mL/min/1.73 m2 for >3 months. CREATININE (test code = CREAT) 0.50 mg/dL 0.55-1.02 L Note change in reference range due to change in reagent. BUN/CREATININE RATIO (test code = BUN/CREA) 58.0 10-20 H CALCIUM (test code = CA) 7.5 mg/dL 8.5-10.1 L CBC W/AUTO [id number] 10:14:00* Test Item Value Reference Range Interpretation Comments WHITE BLOOD CELL (test code = WBC) 14.3 K/mm3 4.5-12.5 H RED BLOOD CELL (test code = RBC) 3.38 mill/mm3 3.7-5.2 L HEMOGLOBIN (test code = HGB) 11.2 gram/dL 11.5-15.5 L HEMATOCRIT (test code = HCT) 34.1 % 36.0-46.0 L MEAN CELL VOLUME (test code = MCV) 100.9 fL 80-98 H MEAN CELL HGB (test code = MCH) 33.1 picogram 27.0-33.0 H MEAN CELL HGB CONCETRATION (test code = MCHC) 32.8 gram/dL 33.0-36. 0 L RED CELL DISTRIBUTION WIDTH (test code = RDW) 22.0 % 11.6-16. 2 H RED CELL DISTRIBUTION WIDTH SD (test code = RDW-SD) 78.9 fL 37 .0-51.0 H PLATELET COUNT (test code = PLT) 83 K/mm3 150-450 L MEAN PLATELET VOLUME (test code = MPV) 13.9 fL 6.7-11.0 H NEUTROPHIL % (test code = NT%) 82.9 % 39.0-69.0 H IMMATURE GRANULOCYTE % (test code = IG%) 1.6 % 0.0-5.0 N LYMPHOCYTE % (test code = LY%) 6.4 % 25.0-55.0 L MONOCYTE % (test code = MO%) 8.0 % 0.0-10.0 N EOSINOPHIL % (test code = EO%) 0.8 % 0.0-5.0 N BASOPHIL % (test code = BA%) 0.3 % 0.0-1.0 N NUCLEATED RBC % (test code = NRBC%) 0.0 % 0-0 N NEUTROPHIL # (test code = NT#) 11.88 K/mm3 1.8-7.7 H IMMATURE GRANULOCYTE # (test code = IG#) 0.23 x10 3/uL 0-0.03 H LYMPHOCYTE # (test code = LY#) 0.91 K/mm3 1.0-5.0 L MONOCYTE # (test code = MO#) 1.14 K/mm3 0-0.8 H EOSINOPHIL # (test code = EO#) 0.11 K/mm3 0.0-0.5 N BASOPHIL # (test code = BA#) 0.04 K/mm3 0.0-0.2 N NUCLEATED RBC # (test code = NRBC#) 0.00 K/mm3 0.0-0.1 N MANUAL DIFF REQUIRED (test code = MDIFF) NO, ONLY SCAN NEEDED DIFFERENTIAL [id number] 10:14:00* Test Item Value Reference Range Interpretation Comments STAIN ACCEPTABILITY (test code = STN ACCEPTABLE) CABOT RINGS (test code = CAB) MORPHOLOGY COMMENT (test code = MOC) PLATELET ESTIMATE (test code = PLTEST) PLATELET MORPHOLOGY (test code = PLTMORPH) CBC W/AUTO [id number] 10:14:00* Test Item Value Reference Range Interpretation Comments WHITE BLOOD CELL (test code = WBC) 14.3 K/mm3 4.5-12.5 H RED BLOOD CELL (test code = RBC) 3.38 mill/mm3 3.7-5.2 L HEMOGLOBIN (test code = HGB) 11.2 gram/dL 11.5-15.5 L HEMATOCRIT (test code = HCT) 34.1 % 36.0-46.0 L MEAN CELL VOLUME (test code = MCV) 100.9 fL 80-98 H MEAN CELL HGB (test code = MCH) 33.1 picogram 27.0-33.0 H MEAN CELL HGB CONCETRATION (test code = MCHC) 32.8 gram/dL 33.0-36. 0 L RED CELL DISTRIBUTION WIDTH (test code = RDW) 22.0 % 11.6-16. 2 H RED CELL DISTRIBUTION WIDTH SD (test code = RDW-SD) 78.9 fL 37 .0-51.0 H PLATELET COUNT (test code = PLT) 83 K/mm3 150-450 L MEAN PLATELET VOLUME (test code = MPV) 13.9 fL 6.7-11.0 H NEUTROPHIL % (test code = NT%) 82.9 % 39.0-69.0 H IMMATURE GRANULOCYTE % (test code = IG%) 1.6 % 0.0-5.0 N LYMPHOCYTE % (test code = LY%) 6.4 % 25.0-55.0 L MONOCYTE % (test code = MO%) 8.0 % 0.0-10.0 N EOSINOPHIL % (test code = EO%) 0.8 % 0.0-5.0 N BASOPHIL % (test code = BA%) 0.3 % 0.0-1.0 N NUCLEATED RBC % (test code = NRBC%) 0.0 % 0-0 N NEUTROPHIL # (test code = NT#) 11.88 K/mm3 1.8-7.7 H IMMATURE GRANULOCYTE # (test code = IG#) 0.23 x10 3/uL 0-0.03 H LYMPHOCYTE # (test code = LY#) 0.91 K/mm3 1.0-5.0 L MONOCYTE # (test code = MO#) 1.14 K/mm3 0-0.8 H EOSINOPHIL # (test code = EO#) 0.11 K/mm3 0.0-0.5 N BASOPHIL # (test code = BA#) 0.04 K/mm3 0.0-0.2 N NUCLEATED RBC # (test code = NRBC#) 0.00 K/mm3 0.0-0.1 N MANUAL DIFF REQUIRED (test code = MDIFF) NO, ONLY SCAN NEEDED DIFFERENTIAL [id number] 10:14:00* Test Item Value Reference Range Interpretation Comments STAIN ACCEPTABILITY (test code = STN ACCEPTABLE) CABOT RINGS (test code = CAB) MORPHOLOGY COMMENT (test code = MOC) PLATELET ESTIMATE (test code = PLTEST) PLATELET MORPHOLOGY (test code = PLTMORPH) CBC W/AUTO [id number] 10:14:00* Test Item Value Reference Range Interpretation Comments WHITE BLOOD CELL (test code = WBC) 14.3 K/mm3 4.5-12.5 H RED BLOOD CELL (test code = RBC) 3.38 mill/mm3 3.7-5.2 L HEMOGLOBIN (test code = HGB) 11.2 gram/dL 11.5-15.5 L HEMATOCRIT (test code = HCT) 34.1 % 36.0-46.0 L MEAN CELL VOLUME (test code = MCV) 100.9 fL 80-98 H MEAN CELL HGB (test code = MCH) 33.1 picogram 27.0-33.0 H MEAN CELL HGB CONCETRATION (test code = MCHC) 32.8 gram/dL 33.0-36. 0 L RED CELL DISTRIBUTION WIDTH (test code = RDW) 22.0 % 11.6-16. 2 H RED CELL DISTRIBUTION WIDTH SD (test code = RDW-SD) 78.9 fL 37 .0-51.0 H PLATELET COUNT (test code = PLT) 83 K/mm3 150-450 L MEAN PLATELET VOLUME (test code = MPV) 13.9 fL 6.7-11.0 H NEUTROPHIL % (test code = NT%) 82.9 % 39.0-69.0 H IMMATURE GRANULOCYTE % (test code = IG%) 1.6 % 0.0-5.0 N LYMPHOCYTE % (test code = LY%) 6.4 % 25.0-55.0 L MONOCYTE % (test code = MO%) 8.0 % 0.0-10.0 N EOSINOPHIL % (test code = EO%) 0.8 % 0.0-5.0 N BASOPHIL % (test code = BA%) 0.3 % 0.0-1.0 N NUCLEATED RBC % (test code = NRBC%) 0.0 % 0-0 N NEUTROPHIL # (test code = NT#) 11.88 K/mm3 1.8-7.7 H IMMATURE GRANULOCYTE # (test code = IG#) 0.23 x10 3/uL 0-0.03 H LYMPHOCYTE # (test code = LY#) 0.91 K/mm3 1.0-5.0 L MONOCYTE # (test code = MO#) 1.14 K/mm3 0-0.8 H EOSINOPHIL # (test code = EO#) 0.11 K/mm3 0.0-0.5 N BASOPHIL # (test code = BA#) 0.04 K/mm3 0.0-0.2 N NUCLEATED RBC # (test code = NRBC#) 0.00 K/mm3 0.0-0.1 N MANUAL DIFF REQUIRED (test code = MDIFF) NO, ONLY SCAN NEEDED DIFFERENTIAL [id number] 10:14:00* Test Item Value Reference Range Interpretation Comments STAIN ACCEPTABILITY (test code = STN ACCEPTABLE) MORPHOLOGY COMMENT (test code = MOC) PLATELET ESTIMATE (test code = PLTEST) PLATELET MORPHOLOGY (test code = PLTMORPH) CBC W/AUTO [id number] 10:14:00* Test Item Value Reference Range Interpretation Comments WHITE BLOOD CELL (test code = WBC) 14.3 K/mm3 4.5-12.5 H RED BLOOD CELL (test code = RBC) 3.38 mill/mm3 3.7-5.2 L HEMOGLOBIN (test code = HGB) 11.2 gram/dL 11.5-15.5 L HEMATOCRIT (test code = HCT) 34.1 % 36.0-46.0 L MEAN CELL VOLUME (test code = MCV) 100.9 fL 80-98 H MEAN CELL HGB (test code = MCH) 33.1 picogram 27.0-33.0 H MEAN CELL HGB CONCETRATION (test code = MCHC) 32.8 gram/dL 33.0-36. 0 L RED CELL DISTRIBUTION WIDTH (test code = RDW) 22.0 % 11.6-16. 2 H RED CELL DISTRIBUTION WIDTH SD (test code = RDW-SD) 78.9 fL 37 .0-51.0 H PLATELET COUNT (test code = PLT) 83 K/mm3 150-450 L MEAN PLATELET VOLUME (test code = MPV) 13.9 fL 6.7-11.0 H NEUTROPHIL % (test code = NT%) 82.9 % 39.0-69.0 H IMMATURE GRANULOCYTE % (test code = IG%) 1.6 % 0.0-5.0 N LYMPHOCYTE % (test code = LY%) 6.4 % 25.0-55.0 L MONOCYTE % (test code = MO%) 8.0 % 0.0-10.0 N EOSINOPHIL % (test code = EO%) 0.8 % 0.0-5.0 N BASOPHIL % (test code = BA%) 0.3 % 0.0-1.0 N NUCLEATED RBC % (test code = NRBC%) 0.0 % 0-0 N NEUTROPHIL # (test code = NT#) 11.88 K/mm3 1.8-7.7 H IMMATURE GRANULOCYTE # (test code = IG#) 0.23 x10 3/uL 0-0.03 H LYMPHOCYTE # (test code = LY#) 0.91 K/mm3 1.0-5.0 L MONOCYTE # (test code = MO#) 1.14 K/mm3 0-0.8 H EOSINOPHIL # (test code = EO#) 0.11 K/mm3 0.0-0.5 N BASOPHIL # (test code = BA#) 0.04 K/mm3 0.0-0.2 N NUCLEATED RBC # (test code = NRBC#) 0.00 K/mm3 0.0-0.1 N MANUAL DIFF REQUIRED (test code = MDIFF) NO, ONLY SCAN NEEDED DIFFERENTIAL [id number] 10:14:00* Test Item Value Reference Range Interpretation Comments STAIN ACCEPTABILITY (test code = STN ACCEPTABLE) CABOT RINGS (test code = CAB) MORPHOLOGY COMMENT (test code = MOC) PLATELET ESTIMATE (test code = PLTEST) PLATELET MORPHOLOGY (test code = PLTMORPH) [id number] 08:24:00* Test Item Value Reference Range Interpretation Comments GLUBED (test code = GLUBED) 90 mg/dL 74-106 N Performed by certified die cutting machine operator at [facility] [id number] 05:54:00* Test Item Value Reference Range Interpretation Comments GLUBED (test code = GLUBED) 82 mg/dL 74-106 N Performed by certified die cutting machine operator at [facility] [id number] 19:57:00* Test Item Value Reference Range Interpretation Comments GLUBED (test code = GLUBED) 214 mg/dL 74-106 H Performed by certified die cutting machine operator at [facility] [id number] 16:35:00* Test Item Value Reference Range Interpretation Comments GLUBED (test code = GLUBED) 323 mg/dL 74-106 H Performed by certified die cutting machine operator at [facility] [id number] 12:21:00* Test Item Value Reference Range Interpretation Comments GLUBED (test code = GLUBED) 332 mg/dL 74-106 H Performed by certified die cutting machine operator at [facility] [id number] 08:45:00* Test Item Value Reference Range Interpretation Comments GLUBED (test code = GLUBED) 296 mg/dL 74-106 H Performed by certified die cutting machine operator at [facility] [id number] 21:55:00* Test Item Value Reference Range Interpretation Comments GLUBED (test code = GLUBED) 261 mg/dL 74-106 H Performed by certified die cutting machine operator at [facility] [id number] 16:42:00* Test Item Value Reference Range Interpretation Comments GLUBED (test code = GLUBED) 225 mg/dL 74-106 H Performed by certified die cutting machine operator at [facility] - SP PARACENTESIS W [id number] 13:30:00 Name: SUZI SCANLON [facility] : 1955 Age/S: 64 / F [address] [facility] Unit #: [id number] Loc: [place] [address] Phys: Ramon Lemons MD Acct: [id number] Dis Date: Status: ADM IN PHONE #: [phone] Exam Date: 06/08/2019 1318 FAX #: [phone] Reason: / EXAMS: CPT CODE: [id number] SP PARACENTESIS W IMAGE [id number] Fluoro Time: DAP (Gy m2): Air Kerma (mGy): REASON FOR EXAM: Ascites EXAM ORDER DATE: 06/08/2019 1:01 PM Ordering: Ramon Lemons MD Attending:Ramon Lemons MD Location:[facility] PROCEDURE: Ultrasound guided paracentesis CPT code: 92697, 07610 FINDINGS: After informed consent was obtained, the patient was brought to special procedures. The abdomen was prepped and draped in the usual fashion. All elements of maximal sterile barrier technique were followed. Diagnostic ultrasound showed moderate ascites. Images of the ascites was submitted to PACS. 2% local lidocaine was given for local anesthetic. Under real time ultrasound guidance, an 18 gauge needle was advanced into the abdomen. A guide wire was inserted and an 8 Italian drainage catheter was inserted in the abdominal cavity. 6.9 L of fluid obtained. The catheter was removed and hemostasis obtained. Samples were submitted for lab analysis. MEDICATIONS: None COMPLICATIONS: None. Blood loss: less than 5cc. IMPRESSION: 6.9 L of fluid removed from the abdomen. at 1330 Reported and signed by: Fred Isaacs M.D. CC: Ramon Lemons MD Technologist: RT PAOLA Trnscb Date/Time: 06/08/2019 (352) [email or web address] Orig Print D/T: S: 06/08/2019 (3241) PAGE 1 Signed Report CBC W/AUTO [id number] 13:11:00* Test Item Value Reference Range Interpretation Comments WHITE BLOOD CELL (test code = WBC) 10.5 K/mm3 4.5-12.5 N RED BLOOD CELL (test code = RBC) 3.35 mill/mm3 3.7-5.2 L HEMOGLOBIN (test code = HGB) 11.0 gram/dL 11.5-15.5 L HEMATOCRIT (test code = HCT) 34.0 % 36.0-46.0 L MEAN CELL VOLUME (test code = MCV) 101.5 fL 80-98 H MEAN CELL HGB (test code = MCH) 32.8 picogram 27.0-33.0 N MEAN CELL HGB CONCETRATION (test code = MCHC) 32.4 gram/dL 33.0-36. 0 L RED CELL DISTRIBUTION WIDTH (test code = RDW) 21.3 % 11.6-16. 2 H RED CELL DISTRIBUTION WIDTH SD (test code = RDW-SD) 74.4 fL 37 .0-51.0 H PLATELET COUNT (test code = PLT) 70 K/mm3 150-450 L MEAN PLATELET VOLUME (test code = MPV) 13.4 fL 6.7-11.0 H NEUTROPHIL % (test code = NT%) 84.1 % 39.0-69.0 H IMMATURE GRANULOCYTE % (test code = IG%) 1.4 % 0.0-5.0 N LYMPHOCYTE % (test code = LY%) 6.0 % 25.0-55.0 L MONOCYTE % (test code = MO%) 7.3 % 0.0-10.0 N EOSINOPHIL % (test code = EO%) 1.1 % 0.0-5.0 N BASOPHIL % (test code = BA%) 0.1 % 0.0-1.0 N NUCLEATED RBC % (test code = NRBC%) 0.0 % 0-0 N NEUTROPHIL # (test code = NT#) 8.80 K/mm3 1.8-7.7 H IMMATURE GRANULOCYTE # (test code = IG#) 0.15 x10 3/uL 0-0.03 H LYMPHOCYTE # (test code = LY#) 0.63 K/mm3 1.0-5.0 L MONOCYTE # (test code = MO#) 0.76 K/mm3 0-0.8 N EOSINOPHIL # (test code = EO#) 0.12 K/mm3 0.0-0.5 N BASOPHIL # (test code = BA#) 0.01 K/mm3 0.0-0.2 N NUCLEATED RBC # (test code = NRBC#) 0.00 K/mm3 0.0-0.1 N MANUAL DIFF REQUIRED (test code = MDIFF) NO, ONLY SCAN NEEDED DIFFERENTIAL [id number] 13:11:00* Test Item Value Reference Range Interpretation Comments STAIN ACCEPTABILITY (test code = STN ACCEPTABLE) STAIN ACCEPTABLE POLYCHROMASIA (test code = POLC) 1+ POIKILOCYTOSIS (test code = POIK) 2+ ANISOCYTOSIS (test code = ANISO) 2+ MACROCYTOSIS (test code = MACR) 2+ ANNITA CELLS (test code = ANNITA) 2+ NONE PLATELET ESTIMATE (test code = PLTEST) DECREASED PLATELET MORPHOLOGY (test code = PLTMORPH) NORMAL [id number] 12:28:00* Test Item Value Reference Range Interpretation Comments GLUBED (test code = GLUBED) 247 mg/dL 74-106 H Performed by certified die cutting machine operator at [facility] PROTHROMBIN [id number] 11:32:00* Test Item Value Reference Range Interpretation Comments PROTHROMBIN TIME PATIENT (test code = PTP) 16.5 seconds 9.0-14.0 H INTERNATIONAL NORMAL RATIO (test code = INR) 1.4 0.8-1.2 H The therapeutic range for oral anticoagulant therapy formost indications is an international normalized ratio (INR)of between 2.0 and 3.0. The recommended therapeutic INRrange for various clinical situations is listed below: Clinical Situation INR range Pulmonary e mbolism treatment (2.0-3.0)Venous thrombosis treatmentVenous thrombosis prophylaxis (high risk surgery)Prevention of systemic embolism from: Acute myocardial infarction Valvular heart disease Atrial fibrillation Mechanical prosthetic heart valves (2.5-3.5) IS PATIENT ON ANTICOAGULANTS? NTHROMBOPLASTIN TIME [id number] 11:32:00* Test Item Value Reference Range Interpretation Comments THROMBOPLASTIN TIME PARTIAL (test code = PTT) 35.4 seconds 25.0-36. 5 N IS PATIENT ON ANTICOAGULANTS? NCBC W/AUTO [id number] 11:20:00* Test Item Value Reference Range Interpretation Comments WHITE BLOOD CELL (test code = WBC) 10.5 K/mm3 4.5-12.5 N RED BLOOD CELL (test code = RBC) 3.35 mill/mm3 3.7-5.2 L HEMOGLOBIN (test code = HGB) 11.0 gram/dL 11.5-15.5 L HEMATOCRIT (test code = HCT) 34.0 % 36.0-46.0 L MEAN CELL VOLUME (test code = MCV) 101.5 fL 80-98 H MEAN CELL HGB (test code = MCH) 32.8 picogram 27.0-33.0 N MEAN CELL HGB CONCETRATION (test code = MCHC) 32.4 gram/dL 33.0-36. 0 L RED CELL DISTRIBUTION WIDTH (test code = RDW) 21.3 % 11.6-16. 2 H RED CELL DISTRIBUTION WIDTH SD (test code = RDW-SD) 74.4 fL 37 .0-51.0 H PLATELET COUNT (test code = PLT) 70 K/mm3 150-450 L MEAN PLATELET VOLUME (test code = MPV) 13.4 fL 6.7-11.0 H NEUTROPHIL % (test code = NT%) 84.1 % 39.0-69.0 H IMMATURE GRANULOCYTE % (test code = IG%) 1.4 % 0.0-5.0 N LYMPHOCYTE % (test code = LY%) 6.0 % 25.0-55.0 L MONOCYTE % (test code = MO%) 7.3 % 0.0-10.0 N EOSINOPHIL % (test code = EO%) 1.1 % 0.0-5.0 N BASOPHIL % (test code = BA%) 0.1 % 0.0-1.0 N NUCLEATED RBC % (test code = NRBC%) 0.0 % 0-0 N NEUTROPHIL # (test code = NT#) 8.80 K/mm3 1.8-7.7 H IMMATURE GRANULOCYTE # (test code = IG#) 0.15 x10 3/uL 0-0.03 H LYMPHOCYTE # (test code = LY#) 0.63 K/mm3 1.0-5.0 L MONOCYTE # (test code = MO#) 0.76 K/mm3 0-0.8 N EOSINOPHIL # (test code = EO#) 0.12 K/mm3 0.0-0.5 N BASOPHIL # (test code = BA#) 0.01 K/mm3 0.0-0.2 N NUCLEATED RBC # (test code = NRBC#) 0.00 K/mm3 0.0-0.1 N MANUAL DIFF REQUIRED (test code = MDIFF) NO, ONLY SCAN NEEDED DIFFERENTIAL [id number] 11:20:00* Test Item Value Reference Range Interpretation Comments STAIN ACCEPTABILITY (test code = STN ACCEPTABLE) CABOT RINGS (test code = CAB) MORPHOLOGY COMMENT (test code = MOC) PLATELET ESTIMATE (test code = PLTEST) PLATELET MORPHOLOGY (test code = PLTMORPH) CBC W/AUTO [id number] 11:20:00* Test Item Value Reference Range Interpretation Comments WHITE BLOOD CELL (test code = WBC) 10.5 K/mm3 4.5-12.5 N RED BLOOD CELL (test code = RBC) 3.35 mill/mm3 3.7-5.2 L HEMOGLOBIN (test code = HGB) 11.0 gram/dL 11.5-15.5 L HEMATOCRIT (test code = HCT) 34.0 % 36.0-46.0 L MEAN CELL VOLUME (test code = MCV) 101.5 fL 80-98 H MEAN CELL HGB (test code = MCH) 32.8 picogram 27.0-33.0 N MEAN CELL HGB CONCETRATION (test code = MCHC) 32.4 gram/dL 33.0-36. 0 L RED CELL DISTRIBUTION WIDTH (test code = RDW) 21.3 % 11.6-16. 2 H RED CELL DISTRIBUTION WIDTH SD (test code = RDW-SD) 74.4 fL 37 .0-51.0 H PLATELET COUNT (test code = PLT) 70 K/mm3 150-450 L MEAN PLATELET VOLUME (test code = MPV) 13.4 fL 6.7-11.0 H NEUTROPHIL % (test code = NT%) 84.1 % 39.0-69.0 H IMMATURE GRANULOCYTE % (test code = IG%) 1.4 % 0.0-5.0 N LYMPHOCYTE % (test code = LY%) 6.0 % 25.0-55.0 L MONOCYTE % (test code = MO%) 7.3 % 0.0-10.0 N EOSINOPHIL % (test code = EO%) 1.1 % 0.0-5.0 N BASOPHIL % (test code = BA%) 0.1 % 0.0-1.0 N NUCLEATED RBC % (test code = NRBC%) 0.0 % 0-0 N NEUTROPHIL # (test code = NT#) 8.80 K/mm3 1.8-7.7 H IMMATURE GRANULOCYTE # (test code = IG#) 0.15 x10 3/uL 0-0.03 H LYMPHOCYTE # (test code = LY#) 0.63 K/mm3 1.0-5.0 L MONOCYTE # (test code = MO#) 0.76 K/mm3 0-0.8 N EOSINOPHIL # (test code = EO#) 0.12 K/mm3 0.0-0.5 N BASOPHIL # (test code = BA#) 0.01 K/mm3 0.0-0.2 N NUCLEATED RBC # (test code = NRBC#) 0.00 K/mm3 0.0-0.1 N MANUAL DIFF REQUIRED (test code = MDIFF) NO, ONLY SCAN NEEDED DIFFERENTIAL [id number] 11:20:00* Test Item Value Reference Range Interpretation Comments STAIN ACCEPTABILITY (test code = STN ACCEPTABLE) MORPHOLOGY COMMENT (test code = MOC) PLATELET ESTIMATE (test code = PLTEST) PLATELET MORPHOLOGY (test code = PLTMORPH) CBC W/AUTO [id number] 11:20:00* Test Item Value Reference Range Interpretation Comments WHITE BLOOD CELL (test code = WBC) 10.5 K/mm3 4.5-12.5 N RED BLOOD CELL (test code = RBC) 3.35 mill/mm3 3.7-5.2 L HEMOGLOBIN (test code = HGB) 11.0 gram/dL 11.5-15.5 L HEMATOCRIT (test code = HCT) 34.0 % 36.0-46.0 L MEAN CELL VOLUME (test code = MCV) 101.5 fL 80-98 H MEAN CELL HGB (test code = MCH) 32.8 picogram 27.0-33.0 N MEAN CELL HGB CONCETRATION (test code = MCHC) 32.4 gram/dL 33.0-36. 0 L RED CELL DISTRIBUTION WIDTH (test code = RDW) 21.3 % 11.6-16. 2 H RED CELL DISTRIBUTION WIDTH SD (test code = RDW-SD) 74.4 fL 37 .0-51.0 H PLATELET COUNT (test code = PLT) 70 K/mm3 150-450 L MEAN PLATELET VOLUME (test code = MPV) 13.4 fL 6.7-11.0 H NEUTROPHIL % (test code = NT%) 84.1 % 39.0-69.0 H IMMATURE GRANULOCYTE % (test code = IG%) 1.4 % 0.0-5.0 N LYMPHOCYTE % (test code = LY%) 6.0 % 25.0-55.0 L MONOCYTE % (test code = MO%) 7.3 % 0.0-10.0 N EOSINOPHIL % (test code = EO%) 1.1 % 0.0-5.0 N BASOPHIL % (test code = BA%) 0.1 % 0.0-1.0 N NUCLEATED RBC % (test code = NRBC%) 0.0 % 0-0 N NEUTROPHIL # (test code = NT#) 8.80 K/mm3 1.8-7.7 H IMMATURE GRANULOCYTE # (test code = IG#) 0.15 x10 3/uL 0-0.03 H LYMPHOCYTE # (test code = LY#) 0.63 K/mm3 1.0-5.0 L MONOCYTE # (test code = MO#) 0.76 K/mm3 0-0.8 N EOSINOPHIL # (test code = EO#) 0.12 K/mm3 0.0-0.5 N BASOPHIL # (test code = BA#) 0.01 K/mm3 0.0-0.2 N NUCLEATED RBC # (test code = NRBC#) 0.00 K/mm3 0.0-0.1 N MANUAL DIFF REQUIRED (test code = MDIFF) NO, ONLY SCAN NEEDED DIFFERENTIAL [id number] 11:20:00* Test Item Value Reference Range Interpretation Comments STAIN ACCEPTABILITY (test code = STN ACCEPTABLE) MORPHOLOGY COMMENT (test code = MOC) PLATELET ESTIMATE (test code = PLTEST) PLATELET MORPHOLOGY (test code = PLTMORPH) CBC W/AUTO [id number] 11:20:00* Test Item Value Reference Range Interpretation Comments WHITE BLOOD CELL (test code = WBC) 10.5 K/mm3 4.5-12.5 N RED BLOOD CELL (test code = RBC) 3.35 mill/mm3 3.7-5.2 L HEMOGLOBIN (test code = HGB) 11.0 gram/dL 11.5-15.5 L HEMATOCRIT (test code = HCT) 34.0 % 36.0-46.0 L MEAN CELL VOLUME (test code = MCV) 101.5 fL 80-98 H MEAN CELL HGB (test code = MCH) 32.8 picogram 27.0-33.0 N MEAN CELL HGB CONCETRATION (test code = MCHC) 32.4 gram/dL 33.0-36. 0 L RED CELL DISTRIBUTION WIDTH (test code = RDW) 21.3 % 11.6-16. 2 H RED CELL DISTRIBUTION WIDTH SD (test code = RDW-SD) 74.4 fL 37 .0-51.0 H PLATELET COUNT (test code = PLT) 70 K/mm3 150-450 L MEAN PLATELET VOLUME (test code = MPV) 13.4 fL 6.7-11.0 H NEUTROPHIL % (test code = NT%) 84.1 % 39.0-69.0 H IMMATURE GRANULOCYTE % (test code = IG%) 1.4 % 0.0-5.0 N LYMPHOCYTE % (test code = LY%) 6.0 % 25.0-55.0 L MONOCYTE % (test code = MO%) 7.3 % 0.0-10.0 N EOSINOPHIL % (test code = EO%) 1.1 % 0.0-5.0 N BASOPHIL % (test code = BA%) 0.1 % 0.0-1.0 N NUCLEATED RBC % (test code = NRBC%) 0.0 % 0-0 N NEUTROPHIL # (test code = NT#) 8.80 K/mm3 1.8-7.7 H IMMATURE GRANULOCYTE # (test code = IG#) 0.15 x10 3/uL 0-0.03 H LYMPHOCYTE # (test code = LY#) 0.63 K/mm3 1.0-5.0 L MONOCYTE # (test code = MO#) 0.76 K/mm3 0-0.8 N EOSINOPHIL # (test code = EO#) 0.12 K/mm3 0.0-0.5 N BASOPHIL # (test code = BA#) 0.01 K/mm3 0.0-0.2 N NUCLEATED RBC # (test code = NRBC#) 0.00 K/mm3 0.0-0.1 N MANUAL DIFF REQUIRED (test code = MDIFF) NO, ONLY SCAN NEEDED DIFFERENTIAL [id number] 11:20:00* Test Item Value Reference Range Interpretation Comments STAIN ACCEPTABILITY (test code = STN ACCEPTABLE) CABOT RINGS (test code = CAB) MORPHOLOGY COMMENT (test code = MOC) PLATELET ESTIMATE (test code = PLTEST) PLATELET MORPHOLOGY (test code = PLTMORPH) [id number] 08:43:00* Test Item Value Reference Range Interpretation Comments GLUBED (test code = GLUBED) 239 mg/dL 74-106 H Performed by certified die cutting machine operator at [facility] [id number] 16:20:00* Test Item Value Reference Range Interpretation Comments GLUBED (test code = GLUBED) 277 mg/dL 74-106 H Performed by certified die cutting machine operator at [facility] [id number] 12:13:00* Test Item Value Reference Range Interpretation Comments GLUBED (test code = GLUBED) 251 mg/dL 74-106 H Performed by certified die cutting machine operator at [facility] [id number] 08:40:00* Test Item Value Reference Range Interpretation Comments GLUBED (test code = GLUBED) 288 mg/dL 74-106 H Performed by certified die cutting machine operator at [facility] - CT ABD PELVIS [id number] 20:49:00 Name: SUZI SCANLON [facility] : 1955 Age/S: 64 / F [address] [facility] Unit #: [id number] Loc: [place] [address] Phys: Ramon Lemons MD Acct: [id number] Dis Date: Status: ADM IN PHONE #: [phone] Exam Date: 06/06/2019 1650 FAX #: [phone] Reason: STAT PLEASE EXAMS: CPT CODE: [id number] CT ABD PELVIS W/CONT 28185 HISTORY: STAT PLEASE TECHNIQUE: Immediate and delayed [address] images were obtained through the abdomen and pelvis after IV administration of 100 mL of Isovue-370 contrast. Sagittal and coronal reformatted images were generated. Automated exposure reduction (Auto mA/Smart mA) was utilized in compliance with ACR [employer] with DLP of 623 mGy-cm. COMPARISON: 05/30/19 FINDINGS: THORACIC: Patchy bibasilar airspace opacification. Small right pleural effusion. Cardiomegaly. HEPATOBILIARY: Cirrhotic liver. Multiple small gallstones. No evident gallbladder wall thickening. No biliary dilation. PANCREAS: Normal. SPLEEN: Normal. ADRENALS: Normal. GASTROINTESTINAL: Limited evaluation the GI tract without oral contrast. Stomach is unremarkable. Small bowel loops within umbilical hernia; no associated inflammatory changes of bowel obstruction. Appendix is not visualized. Colon is unremarkable. GENITOURINARY: Kidneys are normal. No hydronephrosis. Urinary bladder is collapsed about an indwelling Barker catheter. Uterus and ovaries are unremarkable. VASCULAR: Aortoiliac atherosclerotic vascular calcification without aneurysm. 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 LYMPHATICS: No enlarged lymph nodes by CT size criteria. PERITONEUM/OTHER: Severe ascites. No free air. BONES/SOFT TISSUES: Degenerative changes of the spine, sacroiliac joints, and hips. Large fluid-filled left inguinal hernia. Anasarca. IMPRESSION: Small bowel loops within umbilical hernia; no associated inflammatory changes of bowel obstruction. Cirrhotic liver. Severe ascites. Cholelithiasis. No biliary dilation. PAGE 1 Signed Report (CONTINUED) Name: SUZI SCANLON [facility] : 1955 Age/S: 64 / F [place] Unit #: [id number] Loc: [place] [address] Phys: Ramon Lemons MD Acct: [id number] Dis Date: Status: ADM IN PHONE #: [phone] Exam D ate: 06/06/2019 1650 FAX #: [phone] Reason: STAT PLEASE EXAMS: CPT CODE: [id number] CT ABD PELVIS W/CONT 66210 <Continued> Patchy bibasilar airspace opacification. Small right pleural effusion. Correlate with clinical evidence of pneumonia. LOCATION: [facility] at 2049 Reported and signed by: Juli Montes De Oca D.O. CC: Ramon Lemons MD Technologist:Nakia Galeana RT(R),CT CTDI: DLP: Trnscb Date/Time: 06/06/2019 (2048) t.SDR.[email or web address] Orig Print D/T: S: 06/06/2019 (2051) PAGE 2 Signed Report - US ABDOMEN [id number] 19:45:00 [facility] 1955 Age/S: 64 / F Kayode Brown Unit #: [id number] Loc: [place] [address] Phys: Ramon Lemons MD Acct: [id number] Dis Date: Status: ADM IN PHONE #: [phone] Exam Date: 06/06/2019 1910 FAX #: [phone] Reason: SEVERE ASCITES/SOB/RESP DISTRESS EXAMS: CPT CODE: [id number] US ABDOMEN LTD 84788 CLINICAL HISTORY: SEVERE ASCITES TECHNIQUE: Static grayscale images from limited sonographic survey the abdomen for detection of ascites. COMPARISON: None IMPRESSION: Large ascites observed within all 4 quadrants. Fluid appears simple. LOCATION: [facility] at 194 Reported and signed by: Juli Montes De Oca D.O. CC: Ramon Lemons MD Technologist: KARYNA ORR Trnscb Date/Time: 06/06/2019 (1944) [id number] Orig Print D/T: S: 06/06/2019 (1947) Probe: PAGE 1 Signed Report [id number] 06:17:00* Test Item Value Reference Range Interpretation Comments TRIGLYCERIDES (test code = TRIG) 86 mg/dL 20-150 N Are CHOL,TRIG & HDL ordered? [id number] 20:46:00* Test Item Value Reference Range Interpretation Comments GLUBED (test code = GLUBED) 266 mg/dL 74-106 H Performed by certified die cutting machine operator at [facility] FLUID,[id number] 17:37:00 RUN DATE: 06/05/19 [place] - Lab PAGE 1 RUN TIME: 1737 Specimen Inqui ry RUN USER: INTERFACE PATIENT: SUZI SCANLON ACCT #: [id number] LOC: ElizabethAdalbertoTALISHA U #: [id number] AGE/SX: 64/F ROOM: [facility] RE05/30/19REG DR: Ramon Lemons MD : 55 BED: A DIS: STATUS: ADM IN TLOC: SPEC #: [id number] RECD: 06/03/19 STATUS: PAWEL ZAVALA #: [id number] JERONIMO: 06/03/19 DR: Kinza Ireland MD ENTERED: 06/03/19 SP TYPE: FL ASCITES OTHR DR: Virginia Salma shaniqua or Family Physician Reshma Crowder MD, Shahid MDORDERED: GROSS COPIES TO: Virginia Primary or Family Physician Reshma Dixon MD [address] [place] [id number] Santiago Garza [address] [place] [address] Kinza Ireland MD [address] [place] [address] PROCEDURES: GROSS (-1516) TISSUES: ASCITES FLUID - 8 CC CLEAR CLINICAL HISTORY COLLECTION DATE: 06/03/19 ASCITES, CIRRHOSIS, DM2 FINAL DIAGNOSIS Ascites fluid for cytology, paracentesis: MESOTHELIAL CELLS AND WHITE BLOOD CELLS NEGATIVE FOR MALIGNANCY NICOLE/gia Ayala [address], [address]3867 CONTINUED ON NEXT PAGE RUN DA TE: 06/05/19 [facility] Zachary ORTIZ E 2 RUN TIME: 7 Specimen Inquiry RUN USER: INTERFACE SPEC #: [id number] PATIENT: SUZI SCANLON #[id number] (Continued) MACROSCOPIC The specimen is designated as "ascites fluid" and consists of 8 cc of clear fluid for concent ration and evaluation. A cell block is prepared. GROSS PERFORMED AT [facility] [address] [place] [address] (p)[phone] MICROSCOPIC All of the s tains, including any controls performed, stain appropriately. MICROSCOPI C PERFORMED AT [facility] [address] [place] [address] [phone])[phone] PERFORMING SITE Di agnosis performed at: [facility], [address] [address] Signed SIGNATURE ON FILE Marina Lundberg MD 06/05/19 1737 END OF REPORT [id number] 17:29:00* Test Item Value Reference Range Interpretation Comments GLUBED (test code = GLUBED) 245 mg/dL 74-106 H Performed by certified die cutting machine operator at [facility] [id number] 12:28:00* Test Item Value Reference Range Interpretation Comments GLUBED (test code = GLUBED) 230 mg/dL 74-106 H Performed by certified die cutting machine operator at [facility] LIPID PROFILE (CORONARY RISK)2019-06-05 11:52:00* Test Item Value Reference Range Interpretation Comments TRIGLYCERIDES (test code = TRIG) 82 mg/dL 20-150 N CHOLESTEROL (test code = CHOL) 79 mg/dL 0-200 N CHOLESTEROL/HDL RATIO (test code = CHOLHDL) 6.0 RATIO 0-4.9 H RISK ASSOCIATED WITH CHOL/HDL RATIOS: Risk Male Female1/2 AVERAGE 3.43 3.27AVERAGE 4.97 4.442X AVERAGE 9.55 7.053X AVERAGE 23.39 11.04 REFERENCE VALUE IS RELATED TO RISK LEVELS ASRECOMMENDED BY THE [place]. HEART, LUNG, AND BLOOD INST. HDL CHOLESTEROL (test code = HDL) 12 mg/dL 40-60 L LIPOPROTEIN LDL (test code = LDL) 51 mg/dL 100-129 L Reference Interval: mg/dL mmol/L Optimal <100 <2.6Near/above optimal 100-129 2.6- 3.3Borderline High 130-159 3.4-4.1High 160-189 4.1-4.9Very High >=190 >=4.9========= This LDL result is a direct measurement.========= [id number] 11:47:00* Test Item Value Reference Range Interpretation Comments GLYCOSYLATED HEMOGLOBIN (HA1C) (test code = GLYHGB) 5.8 % HbA1 SUGGESTED DIAGNOSIS: HbA1C (%) Diabetic >6.4Prediabetes 5.7 - 6.4Normal <5.7 ESTIMATED AVERAGE GLUCOSE (test code = EAG) 120 MG/DL [id number] 08:03:00* Test Item Value Reference Range Interpretation Comments GLUBED (test code = GLUBED) 237 mg/dL 74-106 H Performed by certified die cutting machine operator at [facility] BASIC METABOLIC [id number] 02:40:00* Test Item Value Reference Range Interpretation Comments SODIUM (test code = NA) 144 mmol/L 136-145 RESU LT VERIFIED BY REPEAT ANALYSIS POTASSIUM (test code = K) 4.1 mmol/L 3.5-5.1 N CHLORIDE (test code = CL) 116.0 mmol/L 98-107 H CARBON DIOXIDE (test code = CO2) 24.0 mmol/L 21-32 N ANION GAP (test code = GAP) 8.1 10-20 L GLUCOSE (test code = GLU) 228 mg/dL 74-106 H BLOOD UREA NITROGEN (test code = BUN) 23 mg/dL 7-18 H RESULT VERIFIED BY REPEAT ANALYSIS GLOMERULAR FILTRATION RATE (test code = GFR) > 60 mL/min >=60 Estimated GFR by using Modified MDRD formula.Chronic kidney disease is defined as either kidney damageor GFR <60 mL/min/1.73 m2 for >3 months. CREATININE (test code = CREAT) 0.50 mg/dL 0.55-1.02 L Note change in reference range due to change in reagent. BUN/CREATININE RATIO (test code = BUN/CREA) 46.0 10-20 H CALCIUM (test code = CA) 7.2 mg/dL 8.5-10.1 L CBC W/AUTO [id number] 01:48:00* Test Item Value Reference Range Interpretation Comments WHITE BLOOD CELL (test code = WBC) 9.8 K/mm3 4.5-12.5 N RED BLOOD CELL (test code = RBC) 2.98 mill/mm3 3.7-5.2 L HEMOGLOBIN (test code = HGB) 9.7 gram/dL 11.5-15.5 L HEMATOCRIT (test code = HCT) 29.6 % 36.0-46.0 L MEAN CELL VOLUME (test code = MCV) 99.3 fL 80-98 H MEAN CELL HGB (test code = MCH) 32.6 picogram 27.0-33.0 N MEAN CELL HGB CONCETRATION (test code = MCHC) 32.8 gram/dL 33.0-36. 0 L RED CELL DISTRIBUTION WIDTH (test code = RDW) 19.3 % 11.6-16. 2 H RED CELL DISTRIBUTION WIDTH SD (test code = RDW-SD) 60.9 fL 37 .0-51.0 H PLATELET COUNT (test code = PLT) 57 K/mm3 150-450 L MEAN PLATELET VOLUME (test code = MPV) 12.4 fL 6.7-11.0 H NEUTROPHIL % (test code = NT%) 84.0 % 39.0-69.0 H IMMATURE GRANULOCYTE % (test code = IG%) 2.6 % 0.0-5.0 N LYMPHOCYTE % (test code = LY%) 5.3 % 25.0-55.0 L MONOCYTE % (test code = MO%) 6.6 % 0.0-10.0 N EOSINOPHIL % (test code = EO%) 1.2 % 0.0-5.0 N BASOPHIL % (test code = BA%) 0.3 % 0.0-1.0 N NUCLEATED RBC % (test code = NRBC%) 0.4 % 0-0 H NEUTROPHIL # (test code = NT#) 8.24 K/mm3 1.8-7.7 H IMMATURE GRANULOCYTE # (test code = IG#) 0.26 x10 3/uL 0-0.03 H LYMPHOCYTE # (test code = LY#) 0.52 K/mm3 1.0-5.0 L MONOCYTE # (test code = MO#) 0.65 K/mm3 0-0.8 N EOSINOPHIL # (test code = EO#) 0.12 K/mm3 0.0-0.5 N BASOPHIL # (test code = BA#) 0.03 K/mm3 0.0-0.2 N NUCLEATED RBC # (test code = NRBC#) 0.04 K/mm3 0.0-0.1 N [id number] 18:52:00* Test Item Value Reference Range Interpretation Comments GLUBED (test code = GLUBED) 224 mg/dL 74-106 H Performed by certified die cutting machine operator at [facility] [id number] 16:09:00* Test Item Value Reference Range Interpretation Comments GLUBED (test code = GLUBED) 234 mg/dL 74-106 H Performed by certified die cutting machine operator at [facility] [id number] 16:09:00* Test Item Value Reference Range Interpretation Comments GLUBED (test code = GLUBED) 227 mg/dL 74-106 H Performed by certified die cutting machine operator at [facility] BODY FLUID CELL [id number] 13:48:00* Test Item Value Reference Range Interpretation Comments FLUID SOURCE (test code = SOURCEFL) ASCITES FLD FLUID COLOR (test code = COLFL) YELLOW COLORLESS FLUID APPEARANCE (test code = APPFL) CLEAR FLUID WBC AUTO (test code = WBCFLA) 22 cells/uL FLUID RBC AUTO (test code = RBCFLA) 0 cells/uL FLUID TOTAL CELLS (test code = TCFL) 27 cells/uL >0 Fluid WBC RBC Type cells/uL cells/uL CSF (0-5) n/a Peritoneal n/a n/a Pleural n/a n/a Synovial <200 n/a CSF (0-30) n/a FLUID POLY (test code = POLYFL) 47.0 % FLUID LYMPHOCYTE (test code = LYMPHFL) 25.0 % FLUID MACROPHAGE (test code = MACFL) 28.0 % TOTAL CELLS COUNTED ON DIFF (test code = TOTCELLFL) 100 cells REVIEWED BY (test code = REVIEW) PATHOLOGIST Reviewed by Pathologist, JENN CHASE M.D.06/04/19REVIEWED FLUID [id number] 13:48:00* Test Item Value Reference Range Interpretation Comments FLUID PH (test code = PHFL) 7.0 6.8-7.6 N FLUID [id number] 13:48:00* Test Item Value Reference Range Interpretation Comments FLUID GLUCOSE (test code = GLUFL) 153 mg/dL FLUID [id number] 13:48:00* Test Item Value Reference Range Interpretation Comments FLUID PROTEIN (test code = PROTFL) 0.5 gram/dL FLUID [id number] 13:48:00* Test Item Value Reference Range Interpretation Comments FLUID LDH (test code = LDHFL) 43 IUnit/L - SP PARACENTESIS W [id number] 12:39:00 Name: SUZI SCANLON [facility] : 1955 Age/S: 64 / F [address] Unit #: [id number] Loc: [place] [address] Phys: Kinza Ireland MD Acct: [id number] Dis Date: Status: ADM IN PHONE #: [phone] Exam Date: 06/03/2019 1238 FAX #: [phone] Reason: / EXAMS: CPT CODE: [id number] SP PARACENTESIS W IMAGE [id number] Fluoro Time: DAP (Gy m2): Air Kerma (mGy): EXAM: Ultrasound-guided paracentesis; INFORMATION: Cirrhosis, GI bleed, hepatic encephalopathy; ascites; TECHNIQUE AND FINDINGS: After obtaining informed consent, the patient was placed supine on the procedure table. Limited ultrasound of the abdomen showed a large amount of ascites. The patient's skin in the right lower quadrant was prepped and draped in the usual sterile fashion. Xylocaine was administered and using sonographic guidance an 8 Italian pigtail catheter was inserted into the peritoneal cavity. 5 L of ascites fluid were drained and samples were sent to the lab. The drainage catheter was then removed. No complications. IMPRESSION: Successful ultrasound-guided paracentesis. Location code: [facility] at 1239 Re ported and signed by: Jonatan Diaz M.D. CC: Kinza Ireland MD Technologist: JONNY PATEL NARCOTICS AGENT Trnscb Date/Time: 06/04/2019 (1239) Shila Orig Print D/T: S: 06/04/2019 (8019) PAGE 1 Signed Report BASIC METABOLIC PANEL 2019-06-04 02:41:00* Test Item Value Reference Range Interpretation Comments SODIUM (test code = NA) 149 mmol/L 136-145 H POTASSIUM (test code = K) 3.9 mmol/L 3.5-5.1 N CHLORIDE (test code = CL) 120.0 mmol/L 98-107 H CARBON DIOXIDE (test code = CO2) 24.0 mmol/L 21-32 N ANION GAP (test code = GAP) 8.9 10-20 L GLUCOSE (test code = GLU) 214 mg/dL 74-106 H BLOOD UREA NITROGEN (test code = BUN) 29 mg/dL 7-18 H GLOMERULAR FILTRATION RATE (test code = GFR) > 60 mL/min >=60 Estimated GFR by using Modified MDRD formula.Chronic kidney disease is defined as either kidney damageor GFR <60 mL/min/1.73 m2 for >3 months. CREATININE (test code = CREAT) 0.70 mg/dL 0.55-1.02 N Note change in reference range due to change in reagent. BUN/CREATININE RATIO (test code = BUN/CREA) 41.4 10-20 H CALCIUM (test code = CA) 7.2 mg/dL 8.5-10.1 L CBC W/AUTO [id number] 02:12:00* Test Item Value Reference Range Interpretation Comments WHITE BLOOD CELL (test code = WBC) 9.5 K/mm3 4.5-12.5 N RED BLOOD CELL (test code = RBC) 2.80 mill/mm3 3.7-5.2 L HEMOGLOBIN (test code = HGB) 9.0 gram/dL 11.5-15.5 L HEMATOCRIT (test code = HCT) 28.4 % 36.0-46.0 L MEAN CELL VOLUME (test code = MCV) 101.4 fL 80-98 H MEAN CELL HGB (test code = MCH) 32.1 picogram 27.0-33.0 N MEAN CELL HGB CONCETRATION (test code = MCHC) 31.7 gram/dL 33.0-36. 0 L RED CELL DISTRIBUTION WIDTH (test code = RDW) 19.0 % 11.6-16. 2 H RED CELL DISTRIBUTION WIDTH SD (test code = RDW-SD) 62.4 fL 37 .0-51.0 H PLATELET COUNT (test code = PLT) 57 K/mm3 150-450 L MEAN PLATELET VOLUME (test code = MPV) 13.0 fL 6.7-11.0 H NEUTROPHIL % (test code = NT%) 86.3 % 39.0-69.0 H IMMATURE GRANULOCYTE % (test code = IG%) 1.7 % 0.0-5.0 N LYMPHOCYTE % (test code = LY%) 5.9 % 25.0-55.0 L MONOCYTE % (test code = MO%) 5.1 % 0.0-10.0 N EOSINOPHIL % (test code = EO%) 0.8 % 0.0-5.0 N BASOPHIL % (test code = BA%) 0.2 % 0.0-1.0 N NUCLEATED RBC % (test code = NRBC%) 0.4 % 0-0 H NEUTROPHIL # (test code = NT#) 8.23 K/mm3 1.8-7.7 H IMMATURE GRANULOCYTE # (test code = IG#) 0.16 x10 3/uL 0-0.03 H LYMPHOCYTE # (test code = LY#) 0.56 K/mm3 1.0-5.0 L MONOCYTE # (test code = MO#) 0.49 K/mm3 0-0.8 N EOSINOPHIL # (test code = EO#) 0.08 K/mm3 0.0-0.5 N BASOPHIL # (test code = BA#) 0.02 K/mm3 0.0-0.2 N NUCLEATED RBC # (test code = NRBC#) 0.04 K/mm3 0.0-0.1 N [id number] 20:31:00* Test Item Value Reference Range Interpretation Comments GLUBED (test code = GLUBED) 164 mg/dL 74-106 H Performed by certified die cutting machine operator at [facility] [id number] 18:08:00* Test Item Value Reference Range Interpretation Comments GLUBED (test code = GLUBED) 128 mg/dL 74-106 H Performed by certified die cutting machine operator at [facility] BODY FLUID CELL [id number] 14:32:00* Test Item Value Reference Range Interpretation Comments FLUID SOURCE (test code = SOURCEFL) ASCITES FLD FLUID COLOR (test code = COLFL) YELLOW COLORLESS FLUID APPEARANCE (test code = APPFL) CLEAR FLUID WBC AUTO (test code = WBCFLA) 22 cells/uL FLUID RBC AUTO (test code = RBCFLA) 0 cells/uL FLUID TOTAL CELLS (test code = TCFL) 27 cells/uL >0 Fluid WBC RBC Type cells/uL cells/uL CSF (0-5) n/a Peritoneal n/a n/a Pleural n/a n/a Synovial <200 n/a CSF (0-30) n/a FLUID POLY (test code = POLYFL) 47.0 % FLUID LYMPHOCYTE (test code = LYMPHFL) 25.0 % FLUID MACROPHAGE (test code = MACFL) 28.0 % TOTAL CELLS COUNTED ON DIFF (test code = TOTCELLFL) 100 cells REVIEWED BY (test code = REVIEW) PATHOLOGIST FLUID [id number] 14:32:00* Test Item Value Reference Range Interpretation Comments FLUID PH (test code = PHFL) 7.0 6.8-7.6 N FLUID [id number] 14:32:00* Test Item Value Reference Range Interpretation Comments FLUID GLUCOSE (test code = GLUFL) 153 mg/dL FLUID [id number] 14:32:00* Test Item Value Reference Range Interpretation Comments FLUID PROTEIN (test code = PROTFL) 0.5 gram/dL FLUID [id number] 14:32:00* Test Item Value Reference Range Interpretation Comments FLUID LDH (test code = LDHFL) 43 IUnit/L BODY FLUID CELL [id number] 14:28:00* Test Item Value Reference Range Interpretation Comments FLUID SOURCE (test code = SOURCEFL) ASCITES FLD FLUID COLOR (test code = COLFL) YELLOW COLORLESS FLUID APPEARANCE (test code = APPFL) CLEAR FLUID WBC AUTO (test code = WBCFLA) 22 cells/uL FLUID RBC AUTO (test code = RBCFLA) 0 cells/uL FLUID TOTAL CELLS (test code = TCFL) 27 cells/uL >0 Fluid WBC RBC Type cells/uL cells/uL CSF (0-5) n/a Peritoneal n/a n/a Pleural n/a n/a Synovial <200 n/a CSF (0-30) n/a TOTAL CELLS COUNTED ON DIFF (test code = TOTCELLFL) cells REVIEWED BY (test code = REVIEW) PATHOLOGIST FLUID [id number] 14:28:00* Test Item Value Reference Range Interpretation Comments FLUID PH (test code = PHFL) 7.0 6.8-7.6 N FLUID [id number] 14:28:00* Test Item Value Reference Range Interpretation Comments FLUID GLUCOSE (test code = GLUFL) 153 mg/dL FLUID [id number] 14:28:00* Test Item Value Reference Range Interpretation Comments FLUID PROTEIN (test code = PROTFL) 0.5 gram/dL FLUID [id number] 14:28:00* Test Item Value Reference Range Interpretation Comments FLUID LDH (test code = LDHFL) 43 IUnit/L BODY FLUID CELL [id number] 14:07:00* Test Item Value Reference Range Interpretation Comments FLUID SOURCE (test code = SOURCEFL) ASCITES FLD FLUID COLOR (test code = COLFL) YELLOW COLORLESS FLUID APPEARANCE (test code = APPFL) CLEAR FLUID WBC AUTO (test code = WBCFLA) 22 cells/uL FLUID RBC AUTO (test code = RBCFLA) 0 cells/uL FLUID TOTAL CELLS (test code = TCFL) 27 cells/uL >0 Fluid WBC RBC Type cells/uL cells/uL CSF (0-5) n/a Peritoneal n/a n/a Pleural n/a n/a Synovial <200 n/a CSF (0-30) n/a TOTAL CELLS COUNTED ON DIFF (test code = TOTCELLFL) cells REVIEWED BY (test code = REVIEW) PATHOLOGIST FLUID [id number] 14:07:00* Test Item Value Reference Range Interpretation Comments FLUID PH (test code = PHFL) 7.0 6.8-7.6 N FLUID [id number] 14:07:00* Test Item Value Reference Range Interpretation Comments FLUID GLUCOSE (test code = GLUFL) mg/dL FLUID [id number] 14:07:00* Test Item Value Reference Range Interpretation Comments FLUID PROTEIN (test code = PROTFL) gram/dL FLUID [id number] 14:07:00* Test Item Value Reference Range Interpretation Comments FLUID LDH (test code = LDHFL) IUnit/L BODY FLUID CELL [id number] 14:06:00* Test Item Value Reference Range Interpretation Comments FLUID SOURCE (test code = SOURCEFL) ASCITES FLD FLUID COLOR (test code = COLFL) YELLOW COLORLESS FLUID APPEARANCE (test code = APPFL) CLEAR FLUID WBC (test code = WBCFL) per mm3 0-150 FLUID WBC AUTO (test code = WBCFLA) 22 cells/uL FLUID RBC (test code = RBCFL) per mm3 0-50 FLUID RBC AUTO (test code = RBCFLA) 0 cells/uL FLUID TOTAL CELLS (test code = TCFL) 27 cells/uL >0 Fluid WBC RBC Type cells/uL cells/uL CSF (0-5) n/a Peritoneal n/a n/a Pleural n/a n/a Synovial <200 n/a CSF (0-30) n/a TOTAL CELLS COUNTED ON DIFF (test code = TOTCELLFL) cells REVIEWED BY (test code = REVIEW) PATHOLOGIST FLUID [id number] 14:06:00* Test Item Value Reference Range Interpretation Comments FLUID PH (test code = PHFL) 7.0 6.8-7.6 N FLUID [id number] 14:06:00* Test Item Value Reference Range Interpretation Comments FLUID GLUCOSE (test code = GLUFL) mg/dL FLUID [id number] 14:06:00* Test Item Value Reference Range Interpretation Comments FLUID PROTEIN (test code = PROTFL) gram/dL FLUID [id number] 14:06:00* Test Item Value Reference Range Interpretation Comments FLUID LDH (test code = LDHFL) IUnit/L BODY FLUID CELL [id number] 14:04:00* Test Item Value Reference Range Interpretation Comments FLUID SOURCE (test code = SOURCEFL) ASCITES FLD FLUID COLOR (test code = COLFL) COLORLESS FLUID APPEARANCE (test code = APPFL) FLUID WBC (test code = WBCFL) per mm3 0-150 FLUID WBC AUTO (test code = WBCFLA) 22 cells/uL FLUID RBC (test code = RBCFL) per mm3 0-50 FLUID RBC AUTO (test code = RBCFLA) 0 cells/uL FLUID TOTAL CELLS (test code = TCFL) 27 cells/uL >0 Fluid WBC RBC Type cells/uL cells/uL CSF (0-5) n/a Peritoneal n/a n/a Pleural n/a n/a Synovial <200 n/a CSF (0-30) n/a TOTAL CELLS COUNTED ON DIFF (test code = TOTCELLFL) cells REVIEWED BY (test code = REVIEW) PATHOLOGIST FLUID [id number] 14:04:00* Test Item Value Reference Range Interpretation Comments FLUID PH (test code = PHFL) 6.8-7.6 FLUID [id number] 14:04:00* Test Item Value Reference Range Interpretation Comments FLUID GLUCOSE (test code = GLUFL) mg/dL FLUID [id number] 14:04:00* Test Item Value Reference Range Interpretation Comments FLUID PROTEIN (test code = PROTFL) gram/dL FLUID [id number] 14:04:00* Test Item Value Reference Range Interpretation Comments FLUID LDH (test code = LDHFL) IUnit/L BODY FLUID CELL [id number] 13:48:00* Test Item Value Reference Range Interpretation Comments FLUID SOURCE (test code = SOURCEFL) ASCITES FLD FLUID COLOR (test code = COLFL) COLORLESS FLUID APPEARANCE (test code = APPFL) FLUID WBC (test code = WBCFL) per mm3 0-150 FLUID RBC (test code = RBCFL) per mm3 0-50 FLUID TOTAL CELLS (test code = TCFL) cells/uL >0 TOTAL CELLS COUNTED ON DIFF (test code = TOTCELLFL) cells REVIEWED BY (test code = REVIEW) PATHOLOGIST FLUID [id number] 13:48:00* Test Item Value Reference Range Interpretation Comments FLUID PH (test code = PHFL) 6.8-7.6 FLUID [id number] 13:48:00* Test Item Value Reference Range Interpretation Comments FLUID GLUCOSE (test code = GLUFL) mg/dL FLUID [id number] 13:48:00* Test Item Value Reference Range Interpretation Comments FLUID PROTEIN (test code = PROTFL) gram/dL FLUID [id number] 13:48:00* Test Item Value Reference Range Interpretation Comments FLUID LDH (test code = LDHFL) IUnit/L BASIC METABOLIC [id number] 05:07:00* Test Item Value Reference Range Interpretation Comments SODIUM (test code = NA) 148 mmol/L 136-145 H POTASSIUM (test code = K) 3.8 mmol/L 3.5-5.1 N CHLORIDE (test code = CL) 117.0 mmol/L 98-107 H CARBON DIOXIDE (test code = CO2) 22.0 mmol/L 21-32 N ANION GAP (test code = GAP) 12.8 10-20 N GLUCOSE (test code = GLU) 159 mg/dL 74-106 H BLOOD UREA NITROGEN (test code = BUN) 34 mg/dL 7-18 H GLOMERULAR FILTRATION RATE (test code = GFR) > 60 mL/min >=60 Estimated GFR by using Modified MDRD formula.Chronic kidney disease is defined as either kidney damageor GFR <60 mL/min/1.73 m2 for >3 months. CREATININE (test code = CREAT) 0.60 mg/dL 0.55-1.02 N Note change in reference range due to change in reagent. BUN/CREATININE RATIO (test code = BUN/CREA) 56.7 10-20 H CALCIUM (test code = CA) 7.1 mg/dL 8.5-10.1 L [id number] 05:07:00* Test Item Value Reference Range Interpretation Comments PHOSPHORUS (test code = PHOS) 2.2 mg/dL 2.5-4.9 L [id number] 05:07:00* Test Item Value Reference Range Interpretation Comments MAGNESIUM (test code = MAG) 2.0 mg/dL 1.8-2.4 N CALCIUM [id number] 05:07:00* Test Item Value Reference Range Interpretation Comments CALCIUM IONIZED (test code = NORBERTO) 1.14 mmol/L 1.12-1.32 N BASIC METABOLIC [id number] 04:00:00* Test Item Value Reference Range Interpretation Comments SODIUM (test code = NA) 148 mmol/L 136-145 H POTASSIUM (test code = K) 3.8 mmol/L 3.5-5.1 N CHLORIDE (test code = CL) 117.0 mmol/L 98-107 H CARBON DIOXIDE (test code = CO2) 22.0 mmol/L 21-32 N ANION GAP (test code = GAP) 12.8 10-20 N GLUCOSE (test code = GLU) 159 mg/dL 74-106 H BLOOD UREA NITROGEN (test code = BUN) 34 mg/dL 7-18 H GLOMERULAR FILTRATION RATE (test code = GFR) > 60 mL/min >=60 Estimated GFR by using Modified MDRD formula.Chronic kidney disease is defined as either kidney damageor GFR <60 mL/min/1.73 m2 for >3 months. CREATININE (test code = CREAT) 0.60 mg/dL 0.55-1.02 N Note change in reference range due to change in reagent. BUN/CREATININE RATIO (test code = BUN/CREA) 56.7 10-20 H CALCIUM (test code = CA) 7.1 mg/dL 8.5-10.1 L [id number] 04:00:00* Test Item Value Reference Range Interpretation Comments PHOSPHORUS (test code = PHOS) 2.2 mg/dL 2.5-4.9 L [id number] 04:00:00* Test Item Value Reference Range Interpretation Comments MAGNESIUM (test code = MAG) 2.0 mg/dL 1.8-2.4 N CALCIUM [id number] 04:00:00* Test Item Value Reference Range Interpretation Comments CALCIUM IONIZED (test code = NORBERTO) mmol/L 1.12-1.32 BASIC METABOLIC [id number] 03:50:00* Test Item Value Reference Range Interpretation Comments SODIUM (test code = NA) 148 mmol/L 136-145 H POTASSIUM (test code = K) 3.8 mmol/L 3.5-5.1 N CHLORIDE (test code = CL) 117.0 mmol/L 98-107 H CARBON DIOXIDE (test code = CO2) mmol/L 21-32 ANION GAP (test code = GAP) 10-20 GLUCOSE (test code = GLU) mg/dL 74-106 BLOOD UREA NITROGEN (test code = BUN) mg/dL 7-18 GLOMERULAR FILTRATION RATE (test code = GFR) mL/min >=60 CREATININE (test code = CREAT) mg/dL 0.55-1.02 BUN/CREATININE RATIO (test code = BUN/CREA) 10-20 CALCIUM (test code = CA) mg/dL 8.5-10.1 [id number] 03:50:00* Test Item Value Reference Range Interpretation Comments PHOSPHORUS (test code = PHOS) mg/dL 2.5-4.9 [id number] 03:50:00* Test Item Value Reference Range Interpretation Comments MAGNESIUM (test code = MAG) mg/dL 1.8-2.4 CALCIUM [id number] 03:50:00* Test Item Value Reference Range Interpretation Comments CALCIUM IONIZED (test code = NORBERTO) mmol/L 1.12-1.32 PROTHROMBIN [id number] 03:20:00* Test Item Value Reference Range Interpretation Comments PROTHROMBIN TIME PATIENT (test code = PTP) 16.3 seconds 9.0-14.0 H INTERNATIONAL NORMAL RATIO (test code = INR) 1.4 0.8-1.2 H The therapeutic range for oral anticoagulant therapy formost indications is an international normalized ratio (INR)of between 2.0 and 3.0. The recommended therapeutic INRrange for various clinical situations is listed below: Clinical Situation INR range Pulmonary e mbolism treatment (2.0-3.0)Venous thrombosis treatmentVenous thrombosis prophylaxis (high risk surgery)Prevention of systemic embolism from: Acute myocardial infarction Valvular heart disease Atrial fibrillation Mechanical prosthetic heart valves (2.5-3.5) IS PATIENT ON ANTICOAGULANTS? NCOMMENTS TO SOLUTION DEVELOPER: NEED FOR PROCEDURE 05/23ROMBOPLASTIN TIME [id number] 03:20:00* Test Item Value Reference Range Interpretation Comments THROMBOPLASTIN TIME PARTIAL (test code = PTT) 34.7 seconds 25.0-36. 5 N IS PATIENT ON ANTICOAGULANTS? NCOMMENTS TO SOLUTION DEVELOPER: NEED FOR PROCEDURE 05/23 04/13CBC W/AUTO [id number] 03:05:00* Test Item Value Reference Range Interpretation Comments WHITE BLOOD CELL (test code = WBC) 8.7 K/mm3 4.5-12.5 N RED BLOOD CELL (test code = RBC) 2.55 mill/mm3 3.7-5.2 L HEMOGLOBIN (test code = HGB) 8.0 gram/dL 11.5-15.5 L HEMATOCRIT (test code = HCT) 24.4 % 36.0-46.0 L MEAN CELL VOLUME (test code = MCV) 95.7 fL 80-98 N MEAN CELL HGB (test code = MCH) 31.4 picogram 27.0-33.0 N MEAN CELL HGB CONCETRATION (test code = MCHC) 32.8 gram/dL 33.0-36. 0 L RED CELL DISTRIBUTION WIDTH (test code = RDW) 17.2 % 11.6-16. 2 H RED CELL DISTRIBUTION WIDTH SD (test code = RDW-SD) 57.9 fL 37 .0-51.0 H PLATELET COUNT (test code = PLT) 58 K/mm3 150-450 L MEAN PLATELET VOLUME (test code = MPV) 13.0 fL 6.7-11.0 H NEUTROPHIL % (test code = NT%) 88.8 % 39.0-69.0 H IMMATURE GRANULOCYTE % (test code = IG%) 0.9 % 0.0-5.0 N LYMPHOCYTE % (test code = LY%) 5.4 % 25.0-55.0 L MONOCYTE % (test code = MO%) 4.5 % 0.0-10.0 N EOSINOPHIL % (test code = EO%) 0.3 % 0.0-5.0 N BASOPHIL % (test code = BA%) 0.1 % 0.0-1.0 N NUCLEATED RBC % (test code = NRBC%) 0.5 % 0-0 H NEUTROPHIL # (test code = NT#) 7.73 K/mm3 1.8-7.7 H IMMATURE GRANULOCYTE # (test code = IG#) 0.08 x10 3/uL 0-0.03 H LYMPHOCYTE # (test code = LY#) 0.47 K/mm3 1.0-5.0 L MONOCYTE # (test code = MO#) 0.39 K/mm3 0-0.8 N EOSINOPHIL # (test code = EO#) 0.03 K/mm3 0.0-0.5 N BASOPHIL # (test code = BA#) 0.01 K/mm3 0.0-0.2 N NUCLEATED RBC # (test code = NRBC#) 0.04 K/mm3 0.0-0.1 N [id number] 02:43:00* Test Item Value Reference Range Interpretation Comments GLUBED (test code = GLUBED) 154 mg/dL 74-106 H Performed by certified die cutting machine operator at [facility] [id number] 02:43:00* Test Item Value Reference Range Interpretation Comments GLUBED (test code = GLUBED) > 500 mg/dL 74-106 HH Performed by certified die cutting machine operator at [facility]Notified Nurse~ - HEPA IMAG INCL GB W [id number] 16:05:00 FAX: Pushpa Neff NP [phone] [place]: St: [facility] FAX: Kinza Ireland MD [phone] Name: SUZI SCANLON [facility] : 1955 Age/S: 64/F [address] [facility] Unit #: [id number] Loc: [address] [address] Phys: Pushpa Neff NP Acct: [id number] Dis Date: Status: ADM IN PHONE #: [phone] Exam Date: 06/02/2019 1556 FAX #: [phone] Reason: gall bladder sludge EXAMS: CPT CODE: [id number] HEPA IMAG INCL GB W PHA [id number] REASON FOR EXAM: gall bladder sludge Exam Order Date: 06/02/2019 2:16 PM Ordering: Pushpa Neff NP Attending:Sandra Ireland MD Location:[facility] Procedure: - HEPA IMAG INCL G B W PHA FINDINGS: The patient was injected with 5.5 mCi of techne tium 99m Choletec. Unremarkable radiotracer uptake in the liver. After 2 h our of imaging, there was no uptake within the gallbladder and no obvious evidence of excretion within the small bowel IMPRE SSION: No uptake within the gallbladder and no excretion within the smal l bowel suggestive of most likely primary hepatic disease. The different ial diagnosis also includes acute cholecystitis. Electronically Sign ed by Jaclyn Isaacs on 06/02/2019 at 1605 Reported and si gned by: Fred Isaacs M.D. CC: Pushpa Neff IT SECURITY ANALYST; Kinza Ireland Technologist: Alayna Doty RT(N) Trnscrd Date/Time/By: 06/02/2019 (1603) : By: SinaiVTL Orig Print D/T: S: 06/02/2019 (2786) PAGE 1 Signed Report - US ABDOMEN [id number] 14:53:00 Name: SUZI SCANLON [facility] : 1955 Age/S: 64 / F [address] [facility] Unit #: [id number] Loc: [place] [address] Phys: Gloria Montes De Oca MD Acct: [id number] Dis Date: Status: ADM IN PHONE #: [phone] Exam Date: 06/02/2019 1410 FAX #: [phone] Reason: ascites, abdominal distension EXAMS: CPT CODE: [id number] US ABDOMEN COMPLETE [id number] REASON FOR EXAM: ascites, abdominal distension EXAM ORDER DATE: 06/02/2019 11:13 AM Ordering: Gloria Montes De Oca MD Attending:Kinza Ireland MD Location:[facility] PROCEDURE: - US ABDOMEN COMPLETE FINDINGS: The liver is moderately echogenic and nodular in contour consistent with cirrhosis. There is no evidence of focal mass identified. The pancreas is within normal limits. The right kidney measures 10.9 x 3.9 cm. The left kidney measures 9.3 x 4.5 cm. There is no evidence of hydronephrosis. There is no evidence of nephrolithiasis. There is no evidence of renal mass. The spleen measures 14.4 cm. The gallbladder is partially contracted with stones and sludge. Nonspecific minimal thickening of the wall of the gallbladder (0.7 cm). The common bile duct measures 0.4 cm. The aorta and IVC are within normal limits. The portal vein is patent with hepatopetal flow IMPRESSION: Cirrhosis of the liver. Minimal ascites. Cholelithiasis. at 3473 Reported and signed by: Fred Isaacs M.D. CC: Kinza Ireland MD; Gloria Montes De Oca MD Technologist: CHRISTINE GUPTA RT(R),RDMS Trnscb Date/Time: 06/02/2019 (4492) Elizabeth.VTL Orig Print D/T: S: 06/02/2019 (4230) Probe: PAGE 1 Signed Report BASIC METABOLIC [id number] 03:38:00* Test Item Value Reference Range Interpretation Comments SODIUM (test code = NA) 147 mmol/L 136-145 H POTASSIUM (test code = K) 3.9 mmol/L 3.5-5.1 N CHLORIDE (test code = CL) 117.0 mmol/L 98-107 H CARBON DIOXIDE (test code = CO2) 26.0 mmol/L 21-32 N ANION GAP (test code = GAP) 7.9 10-20 L GLUCOSE (test code = GLU) 159 mg/dL 74-106 H BLOOD UREA NITROGEN (test code = BUN) 33 mg/dL 7-18 H GLOMERULAR FILTRATION RATE (test code = GFR) > 60 mL/min >=60 Estimated GFR by using Modified MDRD formula.Chronic kidney disease is defined as either kidney damageor GFR <60 mL/min/1.73 m2 for >3 months. CREATININE (test code = CREAT) 0.60 mg/dL 0.55-1.02 N Note change in reference range due to change in reagent. BUN/CREATININE RATIO (test code = BUN/CREA) 55.0 10-20 H CALCIUM (test code = CA) 6.9 mg/dL 8.5-10.1 L [id number] 03:38:00* Test Item Value Reference Range Interpretation Comments PHOSPHORUS (test code = PHOS) 2.6 mg/dL 2.5-4.9 N [id number] 03:38:00* Test Item Value Reference Range Interpretation Comments MAGNESIUM (test code = MAG) 1.8 mg/dL 1.8-2.4 N CALCIUM [id number] 03:38:00* Test Item Value Reference Range Interpretation Comments CALCIUM IONIZED (test code = NORBERTO) 1.14 mmol/L 1.12-1.32 N PROTHROMBIN [id number] 03:37:00* Test Item Value Reference Range Interpretation Comments PROTHROMBIN TIME PATIENT (test code = PTP) 17.0 seconds 9.0-14.0 H INTERNATIONAL NORMAL RATIO (test code = INR) 1.5 0.8-1.2 H The therapeutic range for oral anticoagulant therapy formost indications is an international normalized ratio (INR)of between 2.0 and 3.0. The recommended therapeutic INRrange for various clinical situations is listed below: Clinical Situation INR range Pulmonary e mbolism treatment (2.0-3.0)Venous thrombosis treatmentVenous thrombosis prophylaxis (high risk surgery)Prevention of systemic embolism from: Acute myocardial infarction Valvular heart disease Atrial fibrillation Mechanical prosthetic heart valves (2.5-3.5) THROMBOPLASTIN TIME [id number] 03:37:00* Test Item Value Reference Range Interpretation Comments THROMBOPLASTIN TIME PARTIAL (test code = PTT) 38.0 seconds 25.0-36. 5 H [id number] 03:37:00* Test Item Value Reference Range Interpretation Comments FIBRINOGEN (test code = FIB) 106 mg/dL 200-400 L FIBRIN SPLIT [id number] 03:37:00* Test Item Value Reference Range Interpretation Comments FIBRIN SPLIT PRODUCT (test code = FSP) mcg/mL <5 [id number] 03:37:00* Test Item Value Reference Range Interpretation Comments D-DIMER (test code = DDIMER) 4562.00 ng/mLFEU 0-500 HH Results called to [id number] by [email or web address] 06/02/19 0337Critical results verified and read back by Nurse? YESClinical Cut-off value for D-Dimer is 500 ng/mL FEU. Comment: The [employer] D-Dimer assay is intended for use asan aid in the diagnosis of venous thromboembolism (VTE)[deep vein thrombosis (DVT) or pulmonary embolism (PE)].The measurement of D-Dimer should not be used as an aid inthe diagnosis of VTE, in patient with: -Therapeutic dose anticoagulant therapy for >24 hours - Fibrinolytic therapy within previous 7 days -Trauma or surgery within previous 4 weeks -Disseminated malignancies -Aortic aneurysm -Sepsis, severe infections, pneumonia, severe skin infections -Liver cirrhosis - ANTITHROMBIN III (ATIII)2019-06-02 03:37:00* Test Item Value Reference Range Interpretation Comments ANTITHROMBIN III (ATIII) (test code = AT3) % 75-135 BASIC METABOLIC [id number] 03:27:00* Test Item Value Reference Range Interpretation Comments SODIUM (test code = NA) 147 mmol/L 136-145 H POTASSIUM (test code = K) 3.9 mmol/L 3.5-5.1 N CHLORIDE (test code = CL) 117.0 mmol/L 98-107 H CARBON DIOXIDE (test code = CO2) 26.0 mmol/L 21-32 N ANION GAP (test code = GAP) 7.9 10-20 L GLUCOSE (test code = GLU) 159 mg/dL 74-106 H BLOOD UREA NITROGEN (test code = BUN) 33 mg/dL 7-18 H GLOMERULAR FILTRATION RATE (test code = GFR) > 60 mL/min >=60 Estimated GFR by using Modified MDRD formula.Chronic kidney disease is defined as either kidney damageor GFR <60 mL/min/1.73 m2 for >3 months. CREATININE (test code = CREAT) 0.60 mg/dL 0.55-1.02 N Note change in reference range due to change in reagent. BUN/CREATININE RATIO (test code = BUN/CREA) 55.0 10-20 H CALCIUM (test code = CA) 6.9 mg/dL 8.5-10.1 L [id number] 03:27:00* Test Item Value Reference Range Interpretation Comments PHOSPHORUS (test code = PHOS) 2.6 mg/dL 2.5-4.9 N [id number] 03:27:00* Test Item Value Reference Range Interpretation Comments MAGNESIUM (test code = MAG) 1.8 mg/dL 1.8-2.4 N CALCIUM [id number] 03:27:00* Test Item Value Reference Range Interpretation Comments CALCIUM IONIZED (test code = NORBERTO) mmol/L 1.12-1.32 BASIC METABOLIC [id number] 03:25:00* Test Item Value Reference Range Interpretation Comments SODIUM (test code = NA) 147 mmol/L 136-145 H POTASSIUM (test code = K) 3.9 mmol/L 3.5-5.1 N CHLORIDE (test code = CL) 117.0 mmol/L 98-107 H CARBON DIOXIDE (test code = CO2) mmol/L 21-32 ANION GAP (test code = GAP) 10-20 GLUCOSE (test code = GLU) mg/dL 74-106 BLOOD UREA NITROGEN (test code = BUN) mg/dL 7-18 GLOMERULAR FILTRATION RATE (test code = GFR) mL/min >=60 CREATININE (test code = CREAT) mg/dL 0.55-1.02 BUN/CREATININE RATIO (test code = BUN/CREA) 10-20 CALCIUM (test code = CA) mg/dL 8.5-10.1 [id number] 03:25:00* Test Item Value Reference Range Interpretation Comments PHOSPHORUS (test code = PHOS) mg/dL 2.5-4.9 [id number] 03:25:00* Test Item Value Reference Range Interpretation Comments MAGNESIUM (test code = MAG) mg/dL 1.8-2.4 CALCIUM [id number] 03:25:00* Test Item Value Reference Range Interpretation Comments CALCIUM IONIZED (test code = NORBERTO) mmol/L 1.12-1.32 CBC W/AUTO [id number] 03:22:00* Test Item Value Reference Range Interpretation Comments WHITE BLOOD CELL (test code = WBC) 9.7 K/mm3 4.5-12.5 N RED BLOOD CELL (test code = RBC) 2.53 mill/mm3 3.7-5.2 L HEMOGLOBIN (test code = HGB) 8.1 gram/dL 11.5-15.5 L HEMATOCRIT (test code = HCT) 24.3 % 36.0-46.0 L MEAN CELL VOLUME (test code = MCV) 96.0 fL 80-98 N MEAN CELL HGB (test code = MCH) 32.0 picogram 27.0-33.0 N MEAN CELL HGB CONCETRATION (test code = MCHC) 33.3 gram/dL 33.0-36. 0 N RED CELL DISTRIBUTION WIDTH (test code = RDW) 17.2 % 11.6-16. 2 H RED CELL DISTRIBUTION WIDTH SD (test code = RDW-SD) 58.2 fL 37 .0-51.0 H PLATELET COUNT (test code = PLT) 51 K/mm3 150-450 L MEAN PLATELET VOLUME (test code = MPV) 11.7 fL 6.7-11.0 H NEUTROPHIL % (test code = NT%) 87.8 % 39.0-69.0 H IMMATURE GRANULOCYTE % (test code = IG%) 1.6 % 0.0-5.0 N LYMPHOCYTE % (test code = LY%) 6.0 % 25.0-55.0 L MONOCYTE % (test code = MO%) 4.5 % 0.0-10.0 N EOSINOPHIL % (test code = EO%) 0.0 % 0.0-5.0 N BASOPHIL % (test code = BA%) 0.1 % 0.0-1.0 N NUCLEATED RBC % (test code = NRBC%) 0.4 % 0-0 H NEUTROPHIL # (test code = NT#) 8.48 K/mm3 1.8-7.7 H IMMATURE GRANULOCYTE # (test code = IG#) 0.15 x10 3/uL 0-0.03 H LYMPHOCYTE # (test code = LY#) 0.58 K/mm3 1.0-5.0 L MONOCYTE # (test code = MO#) 0.43 K/mm3 0-0.8 N EOSINOPHIL # (test code = EO#) 0.00 K/mm3 0.0-0.5 N BASOPHIL # (test code = BA#) 0.01 K/mm3 0.0-0.2 N NUCLEATED RBC # (test code = NRBC#) 0.04 K/mm3 0.0-0.1 N ALPHA FETOPROTEIN TUMOR [id number] 03:07:00* Test Item Value Reference Range Interpretation Comments ALPHA FETOPROTEIN TUMOR MARKER (test code = AFPTM) 10.3 ng/mL 0.0 -8.3 A [employer] Electrochemiluminescence Immunoassay(ECLIA)Values obtained with different assay methods or kits cannotbe used interchangeably. Results cannot be interpreted asabsolute evidence of the presence or absence of malignantdisease.This test is not interpretable in females.Performed At: [facility] [id number] Diego Douglas MD Ph:[phone] CBC W/AUTO [id number] 17:44:00* Test Item Value Reference Range Interpretation Comments WHITE BLOOD CELL (test code = WBC) 13.5 K/mm3 4.5-12.5 H RED BLOOD CELL (test code = RBC) 3.05 mill/mm3 3.7-5.2 L HEMOGLOBIN (test code = HGB) 9.6 gram/dL 11.5-15.5 L HEMATOCRIT (test code = HCT) 28.8 % 36.0-46.0 L MEAN CELL VOLUME (test code = MCV) 94.4 fL 80-98 N MEAN CELL HGB (test code = MCH) 31.5 picogram 27.0-33.0 N MEAN CELL HGB CONCETRATION (test code = MCHC) 33.3 gram/dL 33.0-36. 0 N RED CELL DISTRIBUTION WIDTH (test code = RDW) 17.2 % 11.6-16. 2 H RED CELL DISTRIBUTION WIDTH SD (test code = RDW-SD) 57.0 fL 37 .0-51.0 H PLATELET COUNT (test code = PLT) 72 K/mm3 150-450 L MEAN PLATELET VOLUME (test code = MPV) 12.3 fL 6.7-11.0 H NEUTROPHIL % (test code = NT%) 88.1 % 39.0-69.0 H IMMATURE GRANULOCYTE % (test code = IG%) 1.0 % 0.0-5.0 N LYMPHOCYTE % (test code = LY%) 6.4 % 25.0-55.0 L MONOCYTE % (test code = MO%) 4.3 % 0.0-10.0 N EOSINOPHIL % (test code = EO%) 0.1 % 0.0-5.0 N BASOPHIL % (test code = BA%) 0.1 % 0.0-1.0 N NUCLEATED RBC % (test code = NRBC%) 0.3 % 0-0 H NEUTROPHIL # (test code = NT#) 11.89 K/mm3 1.8-7.7 H IMMATURE GRANULOCYTE # (test code = IG#) 0.13 x10 3/uL 0-0.03 H LYMPHOCYTE # (test code = LY#) 0.87 K/mm3 1.0-5.0 L MONOCYTE # (test code = MO#) 0.58 K/mm3 0-0.8 N EOSINOPHIL # (test code = EO#) 0.01 K/mm3 0.0-0.5 N BASOPHIL # (test code = BA#) 0.02 K/mm3 0.0-0.2 N NUCLEATED RBC # (test code = NRBC#) 0.04 K/mm3 0.0-0.1 N MANUAL DIFF REQUIRED (test code = MDIFF) NO, ONLY SCAN NEEDED DIFFERENTIAL [id number] 17:44:00* Test Item Value Reference Range Interpretation Comments STAIN ACCEPTABILITY (test code = STN ACCEPTABLE) STAIN ACCEPTABLE POIKILOCYTOSIS (test code = POIK) 1+ ANISOCYTOSIS (test code = ANISO) 1+ MACROCYTOSIS (test code = MACR) 1+ PLATELET ESTIMATE (test code = PLTEST) DECREASED PLATELET MORPHOLOGY (test code = PLTMORPH) NORMAL LACTIC [id number] 15:53:00* Test Item Value Reference Range Interpretation Comments LACTIC ACID (test code = LACT) 2.0 mmol/L 0.4-1.9 H Results called to [id number] by ALEX 06/01/19 1553Critical results verified and read back by Nurse? Y [id number] 15:34:00* Test Item Value Reference Range Interpretation Comments AMMONIA (test code = AMM) 25 umol/L 11-32 N BASIC METABOLIC [id number] 15:34:00* Test Item Value Reference Range Interpretation Comments SODIUM (test code = NA) 143 mmol/L 136-145 N POTASSIUM (test code = K) 4.3 mmol/L 3.5-5.1 N CHLORIDE (test code = CL) 114.0 mmol/L 98-107 H CARBON DIOXIDE (test code = CO2) 27.0 mmol/L 21-32 N ANION GAP (test code = GAP) 6.3 10-20 L GLUCOSE (test code = GLU) 142 mg/dL 74-106 H BLOOD UREA NITROGEN (test code = BUN) 32 mg/dL 7-18 H GLOMERULAR FILTRATION RATE (test code = GFR) > 60 mL/min >=60 Estimated GFR by using Modified MDRD formula.Chronic kidney disease is defined as either kidney damageor GFR <60 mL/min/1.73 m2 for >3 months. CREATININE (test code = CREAT) 0.60 mg/dL 0.55-1.02 N Note change in reference range due to change in reagent. BUN/CREATININE RATIO (test code = BUN/CREA) 53.3 10-20 H CALCIUM (test code = CA) 7.7 mg/dL 8.5-10.1 L [id number] 15:34:00* Test Item Value Reference Range Interpretation Comments PHOSPHORUS (test code = PHOS) 3.7 mg/dL 2.5-4.9 N [id number] 15:34:00* Test Item Value Reference Range Interpretation Comments MAGNESIUM (test code = MAG) 1.9 mg/dL 1.8-2.4 N CALCIUM [id number] 15:34:00* Test Item Value Reference Range Interpretation Comments CALCIUM IONIZED (test code = NORBERTO) 1.17 mmol/L 1.12-1.32 N BASIC METABOLIC [id number] 15:31:00* Test Item Value Reference Range Interpretation Comments SODIUM (test code = NA) 143 mmol/L 136-145 N POTASSIUM (test code = K) 4.3 mmol/L 3.5-5.1 N CHLORIDE (test code = CL) 114.0 mmol/L 98-107 H CARBON DIOXIDE (test code = CO2) mmol/L 21-32 ANION GAP (test code = GAP) 10-20 GLUCOSE (test code = GLU) mg/dL 74-106 BLOOD UREA NITROGEN (test code = BUN) mg/dL 7-18 GLOMERULAR FILTRATION RATE (test code = GFR) mL/min >=60 CREATININE (test code = CREAT) mg/dL 0.55-1.02 BUN/CREATININE RATIO (test code = BUN/CREA) 10-20 CALCIUM (test code = CA) mg/dL 8.5-10.1 [id number] 15:31:00* Test Item Value Reference Range Interpretation Comments PHOSPHORUS (test code = PHOS) mg/dL 2.5-4.9 [id number] 15:31:00* Test Item Value Reference Range Interpretation Comments MAGNESIUM (test code = MAG) mg/dL 1.8-2.4 CALCIUM [id number] 15:31:00* Test Item Value Reference Range Interpretation Comments CALCIUM IONIZED (test code = NORBERTO) 1.17 mmol/L 1.12-1.32 N BASIC METABOLIC [id number] 15:22:00* Test Item Value Reference Range Interpretation Comments SODIUM (test code = NA) mmol/L 136-145 POTASSIUM (test code = K) mmol/L 3.5-5.1 CHLORIDE (test code = CL) mmol/L 98-107 CARBON DIOXIDE (test code = CO2) mmol/L 21-32 ANION GAP (test code = GAP) 10-20 GLUCOSE (test code = GLU) mg/dL 74-106 BLOOD UREA NITROGEN (test code = BUN) mg/dL 7-18 GLOMERULAR FILTRATION RATE (test code = GFR) mL/min >=60 CREATININE (test code = CREAT) mg/dL 0.55-1.02 BUN/CREATININE RATIO (test code = BUN/CREA) 10-20 CALCIUM (test code = CA) mg/dL 8.5-10.1 [id number] 15:22:00* Test Item Value Reference Range Interpretation Comments PHOSPHORUS (test code = PHOS) mg/dL 2.5-4.9 [id number] 15:22:00* Test Item Value Reference Range Interpretation Comments MAGNESIUM (test code = MAG) mg/dL 1.8-2.4 CALCIUM [id number] 15:22:00* Test Item Value Reference Range Interpretation Comments CALCIUM IONIZED (test code = NORBERTO) 1.17 mmol/L 1.12-1.32 N CBC W/AUTO [id number] 15:18:00* Test Item Value Reference Range Interpretation Comments WHITE BLOOD CELL (test code = WBC) 13.5 K/mm3 4.5-12.5 H RED BLOOD CELL (test code = RBC) 3.05 mill/mm3 3.7-5.2 L HEMOGLOBIN (test code = HGB) 9.6 gram/dL 11.5-15.5 L HEMATOCRIT (test code = HCT) 28.8 % 36.0-46.0 L MEAN CELL VOLUME (test code = MCV) 94.4 fL 80-98 N MEAN CELL HGB (test code = MCH) 31.5 picogram 27.0-33.0 N MEAN CELL HGB CONCETRATION (test code = MCHC) 33.3 gram/dL 33.0-36. 0 N RED CELL DISTRIBUTION WIDTH (test code = RDW) 17.2 % 11.6-16. 2 H RED CELL DISTRIBUTION WIDTH SD (test code = RDW-SD) 57.0 fL 37 .0-51.0 H PLATELET COUNT (test code = PLT) 72 K/mm3 150-450 L MEAN PLATELET VOLUME (test code = MPV) 12.3 fL 6.7-11.0 H NEUTROPHIL % (test code = NT%) 88.1 % 39.0-69.0 H IMMATURE GRANULOCYTE % (test code = IG%) 1.0 % 0.0-5.0 N LYMPHOCYTE % (test code = LY%) 6.4 % 25.0-55.0 L MONOCYTE % (test code = MO%) 4.3 % 0.0-10.0 N EOSINOPHIL % (test code = EO%) 0.1 % 0.0-5.0 N BASOPHIL % (test code = BA%) 0.1 % 0.0-1.0 N NUCLEATED RBC % (test code = NRBC%) 0.3 % 0-0 H NEUTROPHIL # (test code = NT#) 11.89 K/mm3 1.8-7.7 H IMMATURE GRANULOCYTE # (test code = IG#) 0.13 x10 3/uL 0-0.03 H LYMPHOCYTE # (test code = LY#) 0.87 K/mm3 1.0-5.0 L MONOCYTE # (test code = MO#) 0.58 K/mm3 0-0.8 N EOSINOPHIL # (test code = EO#) 0.01 K/mm3 0.0-0.5 N BASOPHIL # (test code = BA#) 0.02 K/mm3 0.0-0.2 N NUCLEATED RBC # (test code = NRBC#) 0.04 K/mm3 0.0-0.1 N MANUAL DIFF REQUIRED (test code = MDIFF) NO, ONLY SCAN NEEDED DIFFERENTIAL [id number] 15:18:00* Test Item Value Reference Range Interpretation Comments STAIN ACCEPTABILITY (test code = STN ACCEPTABLE) CABOT RINGS (test code = CAB) MORPHOLOGY COMMENT (test code = MOC) PLATELET ESTIMATE (test code = PLTEST) PLATELET MORPHOLOGY (test code = PLTMORPH) CBC W/AUTO [id number] 15:18:00* Test Item Value Reference Range Interpretation Comments WHITE BLOOD CELL (test code = WBC) 13.5 K/mm3 4.5-12.5 H RED BLOOD CELL (test code = RBC) 3.05 mill/mm3 3.7-5.2 L HEMOGLOBIN (test code = HGB) 9.6 gram/dL 11.5-15.5 L HEMATOCRIT (test code = HCT) 28.8 % 36.0-46.0 L MEAN CELL VOLUME (test code = MCV) 94.4 fL 80-98 N MEAN CELL HGB (test code = MCH) 31.5 picogram 27.0-33.0 N MEAN CELL HGB CONCETRATION (test code = MCHC) 33.3 gram/dL 33.0-36. 0 N RED CELL DISTRIBUTION WIDTH (test code = RDW) 17.2 % 11.6-16. 2 H RED CELL DISTRIBUTION WIDTH SD (test code = RDW-SD) 57.0 fL 37 .0-51.0 H PLATELET COUNT (test code = PLT) 72 K/mm3 150-450 L MEAN PLATELET VOLUME (test code = MPV) 12.3 fL 6.7-11.0 H NEUTROPHIL % (test code = NT%) 88.1 % 39.0-69.0 H IMMATURE GRANULOCYTE % (test code = IG%) 1.0 % 0.0-5.0 N LYMPHOCYTE % (test code = LY%) 6.4 % 25.0-55.0 L MONOCYTE % (test code = MO%) 4.3 % 0.0-10.0 N EOSINOPHIL % (test code = EO%) 0.1 % 0.0-5.0 N BASOPHIL % (test code = BA%) 0.1 % 0.0-1.0 N NUCLEATED RBC % (test code = NRBC%) 0.3 % 0-0 H NEUTROPHIL # (test code = NT#) 11.89 K/mm3 1.8-7.7 H IMMATURE GRANULOCYTE # (test code = IG#) 0.13 x10 3/uL 0-0.03 H LYMPHOCYTE # (test code = LY#) 0.87 K/mm3 1.0-5.0 L MONOCYTE # (test code = MO#) 0.58 K/mm3 0-0.8 N EOSINOPHIL # (test code = EO#) 0.01 K/mm3 0.0-0.5 N BASOPHIL # (test code = BA#) 0.02 K/mm3 0.0-0.2 N NUCLEATED RBC # (test code = NRBC#) 0.04 K/mm3 0.0-0.1 N MANUAL DIFF REQUIRED (test code = MDIFF) NO, ONLY SCAN NEEDED DIFFERENTIAL [id number] 15:18:00* Test Item Value Reference Range Interpretation Comments STAIN ACCEPTABILITY (test code = STN ACCEPTABLE) MORPHOLOGY COMMENT (test code = MOC) PLATELET ESTIMATE (test code = PLTEST) PLATELET MORPHOLOGY (test code = PLTMORPH) CBC W/AUTO [id number] 15:17:00* Test Item Value Reference Range Interpretation Comments WHITE BLOOD CELL (test code = WBC) 13.5 K/mm3 4.5-12.5 H RED BLOOD CELL (test code = RBC) 3.05 mill/mm3 3.7-5.2 L HEMOGLOBIN (test code = HGB) 9.6 gram/dL 11.5-15.5 L HEMATOCRIT (test code = HCT) 28.8 % 36.0-46.0 L MEAN CELL VOLUME (test code = MCV) 94.4 fL 80-98 N MEAN CELL HGB (test code = MCH) 31.5 picogram 27.0-33.0 N MEAN CELL HGB CONCETRATION (test code = MCHC) 33.3 gram/dL 33.0-36. 0 N RED CELL DISTRIBUTION WIDTH (test code = RDW) 17.2 % 11.6-16. 2 H RED CELL DISTRIBUTION WIDTH SD (test code = RDW-SD) 57.0 fL 37 .0-51.0 H PLATELET COUNT (test code = PLT) 72 K/mm3 150-450 L MEAN PLATELET VOLUME (test code = MPV) 12.3 fL 6.7-11.0 H NEUTROPHIL % (test code = NT%) 88.1 % 39.0-69.0 H IMMATURE GRANULOCYTE % (test code = IG%) 1.0 % 0.0-5.0 N LYMPHOCYTE % (test code = LY%) 6.4 % 25.0-55.0 L MONOCYTE % (test code = MO%) 4.3 % 0.0-10.0 N EOSINOPHIL % (test code = EO%) 0.1 % 0.0-5.0 N BASOPHIL % (test code = BA%) 0.1 % 0.0-1.0 N NUCLEATED RBC % (test code = NRBC%) 0.3 % 0-0 H NEUTROPHIL # (test code = NT#) 11.89 K/mm3 1.8-7.7 H IMMATURE GRANULOCYTE # (test code = IG#) 0.13 x10 3/uL 0-0.03 H LYMPHOCYTE # (test code = LY#) 0.87 K/mm3 1.0-5.0 L MONOCYTE # (test code = MO#) 0.58 K/mm3 0-0.8 N EOSINOPHIL # (test code = EO#) 0.01 K/mm3 0.0-0.5 N BASOPHIL # (test code = BA#) 0.02 K/mm3 0.0-0.2 N NUCLEATED RBC # (test code = NRBC#) 0.04 K/mm3 0.0-0.1 N MANUAL DIFF REQUIRED (test code = MDIFF) NO, ONLY SCAN NEEDED DIFFERENTIAL [id number] 15:17:00* Test Item Value Reference Range Interpretation Comments STAIN ACCEPTABILITY (test code = STN ACCEPTABLE) CABOT RINGS (test code = CAB) MORPHOLOGY COMMENT (test code = MOC) PLATELET ESTIMATE (test code = PLTEST) PLATELET MORPHOLOGY (test code = PLTMORPH) CBC W/AUTO [id number] 15:17:00* Test Item Value Reference Range Interpretation Comments WHITE BLOOD CELL (test code = WBC) 13.5 K/mm3 4.5-12.5 H RED BLOOD CELL (test code = RBC) 3.05 mill/mm3 3.7-5.2 L HEMOGLOBIN (test code = HGB) 9.6 gram/dL 11.5-15.5 L HEMATOCRIT (test code = HCT) 28.8 % 36.0-46.0 L MEAN CELL VOLUME (test code = MCV) 94.4 fL 80-98 N MEAN CELL HGB (test code = MCH) 31.5 picogram 27.0-33.0 N MEAN CELL HGB CONCETRATION (test code = MCHC) 33.3 gram/dL 33.0-36. 0 N RED CELL DISTRIBUTION WIDTH (test code = RDW) 17.2 % 11.6-16. 2 H RED CELL DISTRIBUTION WIDTH SD (test code = RDW-SD) 57.0 fL 37 .0-51.0 H PLATELET COUNT (test code = PLT) 72 K/mm3 150-450 L MEAN PLATELET VOLUME (test code = MPV) 12.3 fL 6.7-11.0 H NEUTROPHIL % (test code = NT%) 88.1 % 39.0-69.0 H IMMATURE GRANULOCYTE % (test code = IG%) 1.0 % 0.0-5.0 N LYMPHOCYTE % (test code = LY%) 6.4 % 25.0-55.0 L MONOCYTE % (test code = MO%) 4.3 % 0.0-10.0 N EOSINOPHIL % (test code = EO%) 0.1 % 0.0-5.0 N BASOPHIL % (test code = BA%) 0.1 % 0.0-1.0 N NUCLEATED RBC % (test code = NRBC%) 0.3 % 0-0 H NEUTROPHIL # (test code = NT#) 11.89 K/mm3 1.8-7.7 H IMMATURE GRANULOCYTE # (test code = IG#) 0.13 x10 3/uL 0-0.03 H LYMPHOCYTE # (test code = LY#) 0.87 K/mm3 1.0-5.0 L MONOCYTE # (test code = MO#) 0.58 K/mm3 0-0.8 N EOSINOPHIL # (test code = EO#) 0.01 K/mm3 0.0-0.5 N BASOPHIL # (test code = BA#) 0.02 K/mm3 0.0-0.2 N NUCLEATED RBC # (test code = NRBC#) 0.04 K/mm3 0.0-0.1 N MANUAL DIFF REQUIRED (test code = MDIFF) NO, ONLY SCAN NEEDED DIFFERENTIAL [id number] 15:17:00* Test Item Value Reference Range Interpretation Comments STAIN ACCEPTABILITY (test code = STN ACCEPTABLE) CABOT RINGS (test code = CAB) MORPHOLOGY COMMENT (test code = MOC) PLATELET ESTIMATE (test code = PLTEST) PLATELET MORPHOLOGY (test code = PLTMORPH) PROTHROMBIN [id number] 08:21:00* Test Item Value Reference Range Interpretation Comments PROTHROMBIN TIME PATIENT (test code = PTP) 15.5 seconds 9.0-14.0 H INTERNATIONAL NORMAL RATIO (test code = INR) 1.3 0.8-1.2 H The therapeutic range for oral anticoagulant therapy formost indications is an international normalized ratio (INR)of between 2.0 and 3.0. The recommended therapeutic INRrange for various clinical situations is listed below: Clinical Situation INR range Pulmonary e mbolism treatment (2.0-3.0)Venous thrombosis treatmentVenous thrombosis prophylaxis (high risk surgery)Prevention of systemic embolism from: Acute myocardial infarction Valvular heart disease Atrial fibrillation Mechanical prosthetic heart valves (2.5-3.5) THROMBOPLASTIN TIME [id number] 08:21:00* Test Item Value Reference Range Interpretation Comments THROMBOPLASTIN TIME PARTIAL (test code = PTT) 40.8 seconds 25.0-36. 5 H [id number] 08:21:00* Test Item Value Reference Range Interpretation Comments FIBRINOGEN (test code = FIB) 100 mg/dL 200-400 L FIBRIN SPLIT [id number] 08:21:00* Test Item Value Reference Range Interpretation Comments FIBRIN SPLIT PRODUCT (test code = FSP) mcg/mL <5 [id number] 08:21:00* Test Item Value Reference Range Interpretation Comments D-DIMER (test code = DDIMER) 5166.00 ng/mLFEU 0-500 HH Results called to [id number] results verified and read back by Nurse? YClinical Cut-off value for D-Dimer is 500 ng/mL FEU. Comment: The [employer] D-Dimer assay is intended for use asan aid in the diagnosis of venous thromboembolism (VTE)[deep vein thrombosis (DVT) or pulmonary embolism (PE)].The measurement of D-Dimer should not be used as an aid inthe diagnosis of VTE, in patient with: -Therapeutic dose anticoagulant therapy for >24 hours -Fibrinolytic therapy within previous 7 days -Trauma or surgery within previous 4 weeks -Disseminated malignancies -Aortic aneurysm -Sepsis, severe infections, pneumonia, severe skin infections -Liver cirrhosis - ANTITHROMBIN III (ATIII)2019-06-01 08:21:00* Test Item Value Reference Range Interpretation Comments ANTITHROMBIN III (ATIII) (test code = AT3) % 75-135 LACTIC [id number] 07:59:00* Test Item Value Reference Range Interpretation Comments LACTIC ACID (test code = LACT) 2.5 mmol/L 0.4-1.9 HH Results called to ALE [id number] V.LAB.FRANCESCA 06/01/19 0758Critical results verified and read back by Nurse? Y LACTIC [id number] 06:14:00* Test Item Value Reference Range Interpretation Comments LACTIC ACID (test code = LACT) 2.3 mmol/L 0.4-1.9 HH Results called to [id number] by V.LAB.SADA 06/01/19 0614Critical results verified and read back by Nurse? Y BASIC METABOLIC [id number] 04:23:00* Test Item Value Reference Range Interpretation Comments SODIUM (test code = NA) 147 mmol/L 136-145 H POTASSIUM (test code = K) 4.1 mmol/L 3.5-5.1 N CHLORIDE (test code = CL) 121.0 mmol/L 98-107 H CARBON DIOXIDE (test code = CO2) 21.0 mmol/L 21-32 N ANION GAP (test code = GAP) 9.1 10-20 L GLUCOSE (test code = GLU) 115 mg/dL 74-106 H BLOOD UREA NITROGEN (test code = BUN) 29 mg/dL 7-18 H GLOMERULAR FILTRATION RATE (test code = GFR) > 60 mL/min >=60 Estimated GFR by using Modified MDRD formula.Chronic kidney disease is defined as either kidney damageor GFR <60 mL/min/1.73 m2 for >3 months. CREATININE (test code = CREAT) 0.50 mg/dL 0.55-1.02 L Note change in reference range due to change in reagent. BUN/CREATININE RATIO (test code = BUN/CREA) 58.0 10-20 H CALCIUM (test code = CA) 6.4 mg/dL 8.5-10.1 L Re sults called to [id number] by V.LAB.SADA 06/01/19 0423Critical results verified and read back by Nurse? Y [id number] 04:23:00* Test Item Value Reference Range Interpretation Comments PHOSPHORUS (test code = PHOS) 1.3 mg/dL 2.5-4.9 L [id number] 04:23:00* Test Item Value Reference Range Interpretation Comments MAGNESIUM (test code = MAG) 1.8 mg/dL 1.8-2.4 N CALCIUM [id number] 04:23:00* Test Item Value Reference Range Interpretation Comments CALCIUM IONIZED (test code = NORBERTO) 1.10 mmol/L 1.12-1.32 L BASIC METABOLIC [id number] 03:48:00* Test Item Value Reference Range Interpretation Comments SODIUM (test code = NA) mmol/L 136-145 POTASSIUM (test code = K) mmol/L 3.5-5.1 CHLORIDE (test code = CL) mmol/L 98-107 CARBON DIOXIDE (test code = CO2) mmol/L 21-32 ANION GAP (test code = GAP) 10-20 GLUCOSE (test code = GLU) mg/dL 74-106 BLOOD UREA NITROGEN (test code = BUN) mg/dL 7-18 GLOMERULAR FILTRATION RATE (test code = GFR) mL/min >=60 CREATININE (test code = CREAT) mg/dL 0.55-1.02 BUN/CREATININE RATIO (test code = BUN/CREA) 10-20 CALCIUM (test code = CA) mg/dL 8.5-10.1 [id number] 03:48:00* Test Item Value Reference Range Interpretation Comments PHOSPHORUS (test code = PHOS) mg/dL 2.5-4.9 [id number] 03:48:00* Test Item Value Reference Range Interpretation Comments MAGNESIUM (test code = MAG) mg/dL 1.8-2.4 CALCIUM [id number] 03:48:00* Test Item Value Reference Range Interpretation Comments CALCIUM IONIZED (test code = NORBERTO) 1.10 mmol/L 1.12-1.32 L CBC W/AUTO [id number] 03:00:00* Test Item Value Reference Range Interpretation Comments WHITE BLOOD CELL (test code = WBC) 14.3 K/mm3 4.5-12.5 H RED BLOOD CELL (test code = RBC) 2.96 mill/mm3 3.7-5.2 L HEMOGLOBIN (test code = HGB) 9.3 gram/dL 11.5-15.5 L HEMATOCRIT (test code = HCT) 28.8 % 36.0-46.0 L MEAN CELL VOLUME (test code = MCV) 97.3 fL 80-98 N MEAN CELL HGB (test code = MCH) 31.4 picogram 27.0-33.0 N MEAN CELL HGB CONCETRATION (test code = MCHC) 32.3 gram/dL 33.0-36. 0 L RED CELL DISTRIBUTION WIDTH (test code = RDW) 17.2 % 11.6-16. 2 H RED CELL DISTRIBUTION WIDTH SD (test code = RDW-SD) 59.0 fL 37 .0-51.0 H PLATELET COUNT (test code = PLT) 70 K/mm3 150-450 L MEAN PLATELET VOLUME (test code = MPV) 12.3 fL 6.7-11.0 H NEUTROPHIL % (test code = NT%) 80.7 % 39.0-69.0 H IMMATURE GRANULOCYTE % (test code = IG%) 1.3 % 0.0-5.0 N LYMPHOCYTE % (test code = LY%) 9.5 % 25.0-55.0 L MONOCYTE % (test code = MO%) 8.2 % 0.0-10.0 N EOSINOPHIL % (test code = EO%) 0.1 % 0.0-5.0 N BASOPHIL % (test code = BA%) 0.2 % 0.0-1.0 N NUCLEATED RBC % (test code = NRBC%) 0.1 % 0-0 H NEUTROPHIL # (test code = NT#) 11.53 K/mm3 1.8-7.7 H IMMATURE GRANULOCYTE # (test code = IG#) 0.18 x10 3/uL 0-0.03 H LYMPHOCYTE # (test code = LY#) 1.35 K/mm3 1.0-5.0 N MONOCYTE # (test code = MO#) 1.17 K/mm3 0-0.8 H EOSINOPHIL # (test code = EO#) 0.02 K/mm3 0.0-0.5 N BASOPHIL # (test code = BA#) 0.03 K/mm3 0.0-0.2 N NUCLEATED RBC # (test code = NRBC#) 0.02 K/mm3 0.0-0.1 N LACTIC [id number] 00:06:00* Test Item Value Reference Range Interpretation Comments LACTIC ACID (test code = LACT) 2.1 mmol/L 0.4-1.9 HH Results called to [id number] by CHRIS 06/01/19 0006Critical results verified and read back by Nurse? y CBC W/AUTO [id number] 20:27:00* Test Item Value Reference Range Interpretation Comments WHITE BLOOD CELL (test code = WBC) 11.3 K/mm3 4.5-12.5 N RED BLOOD CELL (test code = RBC) 3.03 mill/mm3 3.7-5.2 L HEMOGLOBIN (test code = HGB) 9.6 gram/dL 11.5-15.5 L RESULT VERIFIED BY REPEAT ANALYSIS HEMATOCRIT (test code = HCT) 29.0 % 36.0-46.0 L MEAN CELL VOLUME (test code = MCV) 95.7 fL 80-98 N MEAN CELL HGB (test code = MCH) 31.7 picogram 27.0-33.0 N MEAN CELL HGB CONCETRATION (test code = MCHC) 33.1 gram/dL 33.0-36. 0 N RED CELL DISTRIBUTION WIDTH (test code = RDW) 17.1 % 11.6-16. 2 H RED CELL DISTRIBUTION WIDTH SD (test code = RDW-SD) 57.1 fL 37 .0-51.0 H PLATELET COUNT (test code = PLT) 68 K/mm3 150-450 L RESULT VERIFIED BY REPEAT ANALYSIS MEAN PLATELET VOLUME (test code = MPV) 11.8 fL 6.7-11.0 H NEUTROPHIL % (test code = NT%) 83.2 % 39.0-69.0 H IMMATURE GRANULOCYTE % (test code = IG%) 0.5 % 0.0-5.0 N LYMPHOCYTE % (test code = LY%) 10.5 % 25.0-55.0 L MONOCYTE % (test code = MO%) 5.5 % 0.0-10.0 N EOSINOPHIL % (test code = EO%) 0.1 % 0.0-5.0 N BASOPHIL % (test code = BA%) 0.2 % 0.0-1.0 N NUCLEATED RBC % (test code = NRBC%) 0.0 % 0-0 N NEUTROPHIL # (test code = NT#) 9.40 K/mm3 1.8-7.7 H IMMATURE GRANULOCYTE # (test code = IG#) 0.06 x10 3/uL 0-0.03 H LYMPHOCYTE # (test code = LY#) 1.18 K/mm3 1.0-5.0 N MONOCYTE # (test code = MO#) 0.62 K/mm3 0-0.8 N EOSINOPHIL # (test code = EO#) 0.01 K/mm3 0.0-0.5 N BASOPHIL # (test code = BA#) 0.02 K/mm3 0.0-0.2 N NUCLEATED RBC # (test code = NRBC#) 0.00 K/mm3 0.0-0.1 N MANUAL DIFF REQUIRED (test code = MDIFF) NO, ONLY SCAN NEEDED DIFFERENTIAL [id number] 20:27:00* Test Item Value Reference Range Interpretation Comments STAIN ACCEPTABILITY (test code = STN ACCEPTABLE) STAIN ACCEPTABLE POIKILOCYTOSIS (test code = POIK) 1+ ANISOCYTOSIS (test code = ANISO) 1+ CRENATED CELLS (test code = CREN) 1+ PLATELET ESTIMATE (test code = PLTEST) DECREASED PLATELET MORPHOLOGY (test code = PLTMORPH) Y LACTIC [id number] 18:08:00* Test Item Value Reference Range Interpretation Comments LACTIC ACID (test code = LACT) 2.5 mmol/L 0.4-1.9 HH Results called to [id number] by V.LAB.KP1 05/31/19 1808Critical results verified and read back by Nurse? Y CBC W/AUTO [id number] 17:55:00* Test Item Value Reference Range Interpretation Comments WHITE BLOOD CELL (test code = WBC) 11.3 K/mm3 4.5-12.5 N RED BLOOD CELL (test code = RBC) 3.03 mill/mm3 3.7-5.2 L HEMOGLOBIN (test code = HGB) 9.6 gram/dL 11.5-15.5 L RESULT VERIFIED BY REPEAT ANALYSIS HEMATOCRIT (test code = HCT) 29.0 % 36.0-46.0 L MEAN CELL VOLUME (test code = MCV) 95.7 fL 80-98 N MEAN CELL HGB (test code = MCH) 31.7 picogram 27.0-33.0 N MEAN CELL HGB CONCETRATION (test code = MCHC) 33.1 gram/dL 33.0-36. 0 N RED CELL DISTRIBUTION WIDTH (test code = RDW) 17.1 % 11.6-16. 2 H RED CELL DISTRIBUTION WIDTH SD (test code = RDW-SD) 57.1 fL 37 .0-51.0 H PLATELET COUNT (test code = PLT) 68 K/mm3 150-450 L RESULT VERIFIED BY REPEAT ANALYSIS MEAN PLATELET VOLUME (test code = MPV) 11.8 fL 6.7-11.0 H NEUTROPHIL % (test code = NT%) 83.2 % 39.0-69.0 H IMMATURE GRANULOCYTE % (test code = IG%) 0.5 % 0.0-5.0 N LYMPHOCYTE % (test code = LY%) 10.5 % 25.0-55.0 L MONOCYTE % (test code = MO%) 5.5 % 0.0-10.0 N EOSINOPHIL % (test code = EO%) 0.1 % 0.0-5.0 N BASOPHIL % (test code = BA%) 0.2 % 0.0-1.0 N NUCLEATED RBC % (test code = NRBC%) 0.0 % 0-0 N NEUTROPHIL # (test code = NT#) 9.40 K/mm3 1.8-7.7 H IMMATURE GRANULOCYTE # (test code = IG#) 0.06 x10 3/uL 0-0.03 H LYMPHOCYTE # (test code = LY#) 1.18 K/mm3 1.0-5.0 N MONOCYTE # (test code = MO#) 0.62 K/mm3 0-0.8 N EOSINOPHIL # (test code = EO#) 0.01 K/mm3 0.0-0.5 N BASOPHIL # (test code = BA#) 0.02 K/mm3 0.0-0.2 N NUCLEATED RBC # (test code = NRBC#) 0.00 K/mm3 0.0-0.1 N MANUAL DIFF REQUIRED (test code = MDIFF) NO, ONLY SCAN NEEDED DIFFERENTIAL [id number] 17:55:00* Test Item Value Reference Range Interpretation Comments STAIN ACCEPTABILITY (test code = STN ACCEPTABLE) CABOT RINGS (test code = CAB) MORPHOLOGY COMMENT (test code = MOC) PLATELET ESTIMATE (test code = PLTEST) PLATELET MORPHOLOGY (test code = PLTMORPH) CBC W/AUTO [id number] 17:55:00* Test Item Value Reference Range Interpretation Comments WHITE BLOOD CELL (test code = WBC) 11.3 K/mm3 4.5-12.5 N RED BLOOD CELL (test code = RBC) 3.03 mill/mm3 3.7-5.2 L HEMOGLOBIN (test code = HGB) 9.6 gram/dL 11.5-15.5 L RESULT VERIFIED BY REPEAT ANALYSIS HEMATOCRIT (test code = HCT) 29.0 % 36.0-46.0 L MEAN CELL VOLUME (test code = MCV) 95.7 fL 80-98 N MEAN CELL HGB (test code = MCH) 31.7 picogram 27.0-33.0 N MEAN CELL HGB CONCETRATION (test code = MCHC) 33.1 gram/dL 33.0-36. 0 N RED CELL DISTRIBUTION WIDTH (test code = RDW) 17.1 % 11.6-16. 2 H RED CELL DISTRIBUTION WIDTH SD (test code = RDW-SD) 57.1 fL 37 .0-51.0 H PLATELET COUNT (test code = PLT) 68 K/mm3 150-450 L RESULT VERIFIED BY REPEAT ANALYSIS MEAN PLATELET VOLUME (test code = MPV) 11.8 fL 6.7-11.0 H NEUTROPHIL % (test code = NT%) 83.2 % 39.0-69.0 H IMMATURE GRANULOCYTE % (test code = IG%) 0.5 % 0.0-5.0 N LYMPHOCYTE % (test code = LY%) 10.5 % 25.0-55.0 L MONOCYTE % (test code = MO%) 5.5 % 0.0-10.0 N EOSINOPHIL % (test code = EO%) 0.1 % 0.0-5.0 N BASOPHIL % (test code = BA%) 0.2 % 0.0-1.0 N NUCLEATED RBC % (test code = NRBC%) 0.0 % 0-0 N NEUTROPHIL # (test code = NT#) 9.40 K/mm3 1.8-7.7 H IMMATURE GRANULOCYTE # (test code = IG#) 0.06 x10 3/uL 0-0.03 H LYMPHOCYTE # (test code = LY#) 1.18 K/mm3 1.0-5.0 N MONOCYTE # (test code = MO#) 0.62 K/mm3 0-0.8 N EOSINOPHIL # (test code = EO#) 0.01 K/mm3 0.0-0.5 N BASOPHIL # (test code = BA#) 0.02 K/mm3 0.0-0.2 N NUCLEATED RBC # (test code = NRBC#) 0.00 K/mm3 0.0-0.1 N MANUAL DIFF REQUIRED (test code = MDIFF) NO, ONLY SCAN NEEDED DIFFERENTIAL [id number] 17:55:00* Test Item Value Reference Range Interpretation Comments STAIN ACCEPTABILITY (test code = STN ACCEPTABLE) CABOT RINGS (test code = CAB) MORPHOLOGY COMMENT (test code = MOC) PLATELET ESTIMATE (test code = PLTEST) PLATELET MORPHOLOGY (test code = PLTMORPH) CBC W/AUTO [id number] 17:55:00* Test Item Value Reference Range Interpretation Comments WHITE BLOOD CELL (test code = WBC) 11.3 K/mm3 4.5-12.5 N RED BLOOD CELL (test code = RBC) 3.03 mill/mm3 3.7-5.2 L HEMOGLOBIN (test code = HGB) 9.6 gram/dL 11.5-15.5 L RESULT VERIFIED BY REPEAT ANALYSIS HEMATOCRIT (test code = HCT) 29.0 % 36.0-46.0 L MEAN CELL VOLUME (test code = MCV) 95.7 fL 80-98 N MEAN CELL HGB (test code = MCH) 31.7 picogram 27.0-33.0 N MEAN CELL HGB CONCETRATION (test code = MCHC) 33.1 gram/dL 33.0-36. 0 N RED CELL DISTRIBUTION WIDTH (test code = RDW) 17.1 % 11.6-16. 2 H RED CELL DISTRIBUTION WIDTH SD (test code = RDW-SD) 57.1 fL 37 .0-51.0 H PLATELET COUNT (test code = PLT) 68 K/mm3 150-450 L RESULT VERIFIED BY REPEAT ANALYSIS MEAN PLATELET VOLUME (test code = MPV) 11.8 fL 6.7-11.0 H NEUTROPHIL % (test code = NT%) 83.2 % 39.0-69.0 H IMMATURE GRANULOCYTE % (test code = IG%) 0.5 % 0.0-5.0 N LYMPHOCYTE % (test code = LY%) 10.5 % 25.0-55.0 L MONOCYTE % (test code = MO%) 5.5 % 0.0-10.0 N EOSINOPHIL % (test code = EO%) 0.1 % 0.0-5.0 N BASOPHIL % (test code = BA%) 0.2 % 0.0-1.0 N NUCLEATED RBC % (test code = NRBC%) 0.0 % 0-0 N NEUTROPHIL # (test code = NT#) 9.40 K/mm3 1.8-7.7 H IMMATURE GRANULOCYTE # (test code = IG#) 0.06 x10 3/uL 0-0.03 H LYMPHOCYTE # (test code = LY#) 1.18 K/mm3 1.0-5.0 N MONOCYTE # (test code = MO#) 0.62 K/mm3 0-0.8 N EOSINOPHIL # (test code = EO#) 0.01 K/mm3 0.0-0.5 N BASOPHIL # (test code = BA#) 0.02 K/mm3 0.0-0.2 N NUCLEATED RBC # (test code = NRBC#) 0.00 K/mm3 0.0-0.1 N MANUAL DIFF REQUIRED (test code = MDIFF) NO, ONLY SCAN NEEDED DIFFERENTIAL [id number] 17:55:00* Test Item Value Reference Range Interpretation Comments STAIN ACCEPTABILITY (test code = STN ACCEPTABLE) MORPHOLOGY COMMENT (test code = MOC) PLATELET ESTIMATE (test code = PLTEST) PLATELET MORPHOLOGY (test code = PLTMORPH) CBC W/AUTO [id number] 17:55:00* Test Item Value Reference Range Interpretation Comments WHITE BLOOD CELL (test code = WBC) 11.3 K/mm3 4.5-12.5 N RED BLOOD CELL (test code = RBC) 3.03 mill/mm3 3.7-5.2 L HEMOGLOBIN (test code = HGB) 9.6 gram/dL 11.5-15.5 L RESULT VERIFIED BY REPEAT ANALYSIS HEMATOCRIT (test code = HCT) 29.0 % 36.0-46.0 L MEAN CELL VOLUME (test code = MCV) 95.7 fL 80-98 N MEAN CELL HGB (test code = MCH) 31.7 picogram 27.0-33.0 N MEAN CELL HGB CONCETRATION (test code = MCHC) 33.1 gram/dL 33.0-36. 0 N RED CELL DISTRIBUTION WIDTH (test code = RDW) 17.1 % 11.6-16. 2 H RED CELL DISTRIBUTION WIDTH SD (test code = RDW-SD) 57.1 fL 37 .0-51.0 H PLATELET COUNT (test code = PLT) 68 K/mm3 150-450 L RESULT VERIFIED BY REPEAT ANALYSIS MEAN PLATELET VOLUME (test code = MPV) 11.8 fL 6.7-11.0 H NEUTROPHIL % (test code = NT%) 83.2 % 39.0-69.0 H IMMATURE GRANULOCYTE % (test code = IG%) 0.5 % 0.0-5.0 N LYMPHOCYTE % (test code = LY%) 10.5 % 25.0-55.0 L MONOCYTE % (test code = MO%) 5.5 % 0.0-10.0 N EOSINOPHIL % (test code = EO%) 0.1 % 0.0-5.0 N BASOPHIL % (test code = BA%) 0.2 % 0.0-1.0 N NUCLEATED RBC % (test code = NRBC%) 0.0 % 0-0 N NEUTROPHIL # (test code = NT#) 9.40 K/mm3 1.8-7.7 H IMMATURE GRANULOCYTE # (test code = IG#) 0.06 x10 3/uL 0-0.03 H LYMPHOCYTE # (test code = LY#) 1.18 K/mm3 1.0-5.0 N MONOCYTE # (test code = MO#) 0.62 K/mm3 0-0.8 N EOSINOPHIL # (test code = EO#) 0.01 K/mm3 0.0-0.5 N BASOPHIL # (test code = BA#) 0.02 K/mm3 0.0-0.2 N NUCLEATED RBC # (test code = NRBC#) 0.00 K/mm3 0.0-0.1 N MANUAL DIFF REQUIRED (test code = MDIFF) NO, ONLY SCAN NEEDED DIFFERENTIAL [id number] 17:55:00* Test Item Value Reference Range Interpretation Comments STAIN ACCEPTABILITY (test code = STN ACCEPTABLE) CABOT RINGS (test code = CAB) MORPHOLOGY COMMENT (test code = MOC) PLATELET ESTIMATE (test code = PLTEST) PLATELET MORPHOLOGY (test code = PLTMORPH) [id number] 14:34:00* Test Item Value Reference Range Interpretation Comments AMMONIA (test code = AMM) 117 umol/L 11-32 H CBC W/AUTO [id number] 13:30:00* Test Item Value Reference Range Interpretation Comments WHITE BLOOD CELL (test code = WBC) 8.2 K/mm3 4.5-12.5 N RED BLOOD CELL (test code = RBC) 2.20 mill/mm3 3.7-5.2 L HEMOGLOBIN (test code = HGB) 6.8 gram/dL 11.5-15.5 L HEMATOCRIT (test code = HCT) 21.2 % 36.0-46.0 LL Results called [place] [id number] by TRISTON 05/31/19 1246Critical results verified and read back by Nurse? Y MEAN CELL VOLUME (test code = MCV) 96.4 fL 80-98 N MEAN CELL HGB (test code = MCH) 30.9 picogram 27.0-33.0 N MEAN CELL HGB CONCETRATION (test code = MCHC) 32.1 gram/dL 33.0-36. 0 L RED CELL DISTRIBUTION WIDTH (test code = RDW) 16.6 % 11.6-16. 2 H RED CELL DISTRIBUTION WIDTH SD (test code = RDW-SD) 56.4 fL 37 .0-51.0 H PLATELET COUNT (test code = PLT) 50 K/mm3 150-450 L MEAN PLATELET VOLUME (test code = MPV) 12.9 fL 6.7-11.0 H NEUTROPHIL % (test code = NT%) 87.7 % 39.0-69.0 H IMMATURE GRANULOCYTE % (test code = IG%) 0.5 % 0.0-5.0 N LYMPHOCYTE % (test code = LY%) 7.4 % 25.0-55.0 L MONOCYTE % (test code = MO%) 4.3 % 0.0-10.0 N EOSINOPHIL % (test code = EO%) 0.0 % 0.0-5.0 N BASOPHIL % (test code = BA%) 0.1 % 0.0-1.0 N NUCLEATED RBC % (test code = NRBC%) 0.0 % 0-0 N NEUTROPHIL # (test code = NT#) 7.18 K/mm3 1.8-7.7 N IMMATURE GRANULOCYTE # (test code = IG#) 0.04 x10 3/uL 0-0.03 H LYMPHOCYTE # (test code = LY#) 0.61 K/mm3 1.0-5.0 L MONOCYTE # (test code = MO#) 0.35 K/mm3 0-0.8 N EOSINOPHIL # (test code = EO#) 0.00 K/mm3 0.0-0.5 N BASOPHIL # (test code = BA#) 0.01 K/mm3 0.0-0.2 N NUCLEATED RBC # (test code = NRBC#) 0.00 K/mm3 0.0-0.1 N MANUAL DIFF REQUIRED (test code = MDIFF) NO, ONLY SCAN NEEDED DIFFERENTIAL [id number] 13:30:00* Test Item Value Reference Range Interpretation Comments STAIN ACCEPTABILITY (test code = STN ACCEPTABLE) STAIN ACCEPTABLE POIKILOCYTOSIS (test code = POIK) 3+ ANISOCYTOSIS (test code = ANISO) 2+ MACROCYTOSIS (test code = MACR) 2+ MORPHOLOGY COMMENT (test code = MOC) TEST NOT PERFORMED PLATELET ESTIMATE (test code = PLTEST) DECREASED PLATELET MORPHOLOGY (test code = PLTMORPH) NORMAL LACTIC [id number] 12:58:00* Test Item Value Reference Range Interpretation Comments LACTIC ACID (test code = LACT) 3.0 mmol/L 0.4-1.9 HH Results called to [id number] by V.[facility].DDC 05/31/19 1257Critical results verified and read back by Nurse? y CBC W/AUTO [id number] 12:49:00* Test Item Value Reference Range Interpretation Comments WHITE BLOOD CELL (test code = WBC) 8.2 K/mm3 4.5-12.5 N RED BLOOD CELL (test code = RBC) 2.20 mill/mm3 3.7-5.2 L HEMOGLOBIN (test code = HGB) 6.8 gram/dL 11.5-15.5 L HEMATOCRIT (test code = HCT) 21.2 % 36.0-46.0 LL Results called to [id number] by V.LAB.LDB 05/31/19 1246Critical results verified and read back by Nurse? Y MEAN CELL VOLUME (test code = MCV) 96.4 fL 80-98 N MEAN CELL HGB (test code = MCH) 30.9 picogram 27.0-33.0 N MEAN CELL HGB CONCETRATION (test code = MCHC) 32.1 gram/dL 33.0-36. 0 L RED CELL DISTRIBUTION WIDTH (test code = RDW) 16.6 % 11.6-16. 2 H RED CELL DISTRIBUTION WIDTH SD (test code = RDW-SD) 56.4 fL 37 .0-51.0 H PLATELET COUNT (test code = PLT) 50 K/mm3 150-450 L MEAN PLATELET VOLUME (test code = MPV) 12.9 fL 6.7-11.0 H NEUTROPHIL % (test code = NT%) 87.7 % 39.0-69.0 H IMMATURE GRANULOCYTE % (test code = IG%) 0.5 % 0.0-5.0 N LYMPHOCYTE % (test code = LY%) 7.4 % 25.0-55.0 L MONOCYTE % (test code = MO%) 4.3 % 0.0-10.0 N EOSINOPHIL % (test code = EO%) 0.0 % 0.0-5.0 N BASOPHIL % (test code = BA%) 0.1 % 0.0-1.0 N NUCLEATED RBC % (test code = NRBC%) 0.0 % 0-0 N NEUTROPHIL # (test code = NT#) 7.18 K/mm3 1.8-7.7 N IMMATURE GRANULOCYTE # (test code = IG#) 0.04 x10 3/uL 0-0.03 H LYMPHOCYTE # (test code = LY#) 0.61 K/mm3 1.0-5.0 L MONOCYTE # (test code = MO#) 0.35 K/mm3 0-0.8 N EOSINOPHIL # (test code = EO#) 0.00 K/mm3 0.0-0.5 N BASOPHIL # (test code = BA#) 0.01 K/mm3 0.0-0.2 N NUCLEATED RBC # (test code = NRBC#) 0.00 K/mm3 0.0-0.1 N MANUAL DIFF REQUIRED (test code = MDIFF) NO, ONLY SCAN NEEDED DIFFERENTIAL [id number] 12:49:00* Test Item Value Reference Range Interpretation Comments STAIN ACCEPTABILITY (test code = STN ACCEPTABLE) CABOT RINGS (test code = CAB) MORPHOLOGY COMMENT (test code = MOC) PLATELET ESTIMATE (test code = PLTEST) PLATELET MORPHOLOGY (test code = PLTMORPH) CBC W/AUTO [id number] 12:49:00* Test Item Value Reference Range Interpretation Comments WHITE BLOOD CELL (test code = WBC) 8.2 K/mm3 4.5-12.5 N RED BLOOD CELL (test code = RBC) 2.20 mill/mm3 3.7-5.2 L HEMOGLOBIN (test code = HGB) 6.8 gram/dL 11.5-15.5 L HEMATOCRIT (test code = HCT) 21.2 % 36.0-46.0 LL Results called to [place] [id number] by [place] 05/31/19 1246Critical results verified and read back by Nurse? Y MEAN CELL VOLUME (test code = MCV) 96.4 fL 80-98 N MEAN CELL HGB (test code = MCH) 30.9 picogram 27.0-33.0 N MEAN CELL HGB CONCETRATION (test code = MCHC) 32.1 gram/dL 33.0-36. 0 L RED CELL DISTRIBUTION WIDTH (test code = RDW) 16.6 % 11.6-16. 2 H RED CELL DISTRIBUTION WIDTH SD (test code = RDW-SD) 56.4 fL 37 .0-51.0 H PLATELET COUNT (test code = PLT) 50 K/mm3 150-450 L MEAN PLATELET VOLUME (test code = MPV) 12.9 fL 6.7-11.0 H NEUTROPHIL % (test code = NT%) 87.7 % 39.0-69.0 H IMMATURE GRANULOCYTE % (test code = IG%) 0.5 % 0.0-5.0 N LYMPHOCYTE % (test code = LY%) 7.4 % 25.0-55.0 L MONOCYTE % (test code = MO%) 4.3 % 0.0-10.0 N EOSINOPHIL % (test code = EO%) 0.0 % 0.0-5.0 N BASOPHIL % (test code = BA%) 0.1 % 0.0-1.0 N NUCLEATED RBC % (test code = NRBC%) 0.0 % 0-0 N NEUTROPHIL # (test code = NT#) 7.18 K/mm3 1.8-7.7 N IMMATURE GRANULOCYTE # (test code = IG#) 0.04 x10 3/uL 0-0.03 H LYMPHOCYTE # (test code = LY#) 0.61 K/mm3 1.0-5.0 L MONOCYTE # (test code = MO#) 0.35 K/mm3 0-0.8 N EOSINOPHIL # (test code = EO#) 0.00 K/mm3 0.0-0.5 N BASOPHIL # (test code = BA#) 0.01 K/mm3 0.0-0.2 N NUCLEATED RBC # (test code = NRBC#) 0.00 K/mm3 0.0-0.1 N MANUAL DIFF REQUIRED (test code = MDIFF) NO, ONLY SCAN NEEDED DIFFERENTIAL [id number] 12:49:00* Test Item Value Reference Range Interpretation Comments STAIN ACCEPTABILITY (test code = STN ACCEPTABLE) MORPHOLOGY COMMENT (test code = MOC) PLATELET ESTIMATE (test code = PLTEST) PLATELET MORPHOLOGY (test code = PLTMORPH) CBC W/AUTO [id number] 12:48:00* Test Item Value Reference Range Interpretation Comments WHITE BLOOD CELL (test code = WBC) 8.2 K/mm3 4.5-12.5 N RED BLOOD CELL (test code = RBC) 2.20 mill/mm3 3.7-5.2 L HEMOGLOBIN (test code = HGB) 6.8 gram/dL 11.5-15.5 L HEMATOCRIT (test code = HCT) 21.2 % 36.0-46.0 LL Results called to [id number] by V.LAB.MENDEZB 05/31/19 1246Critical results verified and read back by Nurse? Y MEAN CELL VOLUME (test code = MCV) 96.4 fL 80-98 N MEAN CELL HGB (test code = MCH) 30.9 picogram 27.0-33.0 N MEAN CELL HGB CONCETRATION (test code = MCHC) 32.1 gram/dL 33.0-36. 0 L RED CELL DISTRIBUTION WIDTH (test code = RDW) 16.6 % 11.6-16. 2 H RED CELL DISTRIBUTION WIDTH SD (test code = RDW-SD) 56.4 fL 37 .0-51.0 H PLATELET COUNT (test code = PLT) 50 K/mm3 150-450 L MEAN PLATELET VOLUME (test code = MPV) 12.9 fL 6.7-11.0 H NEUTROPHIL % (test code = NT%) 87.7 % 39.0-69.0 H IMMATURE GRANULOCYTE % (test code = IG%) 0.5 % 0.0-5.0 N LYMPHOCYTE % (test code = LY%) 7.4 % 25.0-55.0 L MONOCYTE % (test code = MO%) 4.3 % 0.0-10.0 N EOSINOPHIL % (test code = EO%) 0.0 % 0.0-5.0 N BASOPHIL % (test code = BA%) 0.1 % 0.0-1.0 N NUCLEATED RBC % (test code = NRBC%) 0.0 % 0-0 N NEUTROPHIL # (test code = NT#) 7.18 K/mm3 1.8-7.7 N IMMATURE GRANULOCYTE # (test code = IG#) 0.04 x10 3/uL 0-0.03 H LYMPHOCYTE # (test code = LY#) 0.61 K/mm3 1.0-5.0 L MONOCYTE # (test code = MO#) 0.35 K/mm3 0-0.8 N EOSINOPHIL # (test code = EO#) 0.00 K/mm3 0.0-0.5 N BASOPHIL # (test code = BA#) 0.01 K/mm3 0.0-0.2 N NUCLEATED RBC # (test code = NRBC#) 0.00 K/mm3 0.0-0.1 N MANUAL DIFF REQUIRED (test code = MDIFF) NO, ONLY SCAN NEEDED DIFFERENTIAL [id number] 12:48:00* Test Item Value Reference Range Interpretation Comments STAIN ACCEPTABILITY (test code = STN ACCEPTABLE) CABOT RINGS (test code = CAB) MORPHOLOGY COMMENT (test code = MOC) PLATELET ESTIMATE (test code = PLTEST) PLATELET MORPHOLOGY (test code = PLTMORPH) CBC W/AUTO [id number] 12:48:00* Test Item Value Reference Range Interpretation Comments WHITE BLOOD CELL (test code = WBC) 8.2 K/mm3 4.5-12.5 N RED BLOOD CELL (test code = RBC) 2.20 mill/mm3 3.7-5.2 L HEMOGLOBIN (test code = HGB) 6.8 gram/dL 11.5-15.5 L HEMATOCRIT (test code = HCT) 21.2 % 36.0-46.0 LL Results called to [id number] by [facility] 05/31/19 1246Critical results verified and read back by Nurse? Y MEAN CELL VOLUME (test code = MCV) 96.4 fL 80-98 N MEAN CELL HGB (test code = MCH) 30.9 picogram 27.0-33.0 N MEAN CELL HGB CONCETRATION (test code = MCHC) 32.1 gram/dL 33.0-36. 0 L RED CELL DISTRIBUTION WIDTH (test code = RDW) 16.6 % 11.6-16. 2 H RED CELL DISTRIBUTION WIDTH SD (test code = RDW-SD) 56.4 fL 37 .0-51.0 H PLATELET COUNT (test code = PLT) 50 K/mm3 150-450 L MEAN PLATELET VOLUME (test code = MPV) 12.9 fL 6.7-11.0 H NEUTROPHIL % (test code = NT%) 87.7 % 39.0-69.0 H IMMATURE GRANULOCYTE % (test code = IG%) 0.5 % 0.0-5.0 N LYMPHOCYTE % (test code = LY%) 7.4 % 25.0-55.0 L MONOCYTE % (test code = MO%) 4.3 % 0.0-10.0 N EOSINOPHIL % (test code = EO%) 0.0 % 0.0-5.0 N BASOPHIL % (test code = BA%) 0.1 % 0.0-1.0 N NUCLEATED RBC % (test code = NRBC%) 0.0 % 0-0 N NEUTROPHIL # (test code = NT#) 7.18 K/mm3 1.8-7.7 N IMMATURE GRANULOCYTE # (test code = IG#) 0.04 x10 3/uL 0-0.03 H LYMPHOCYTE # (test code = LY#) 0.61 K/mm3 1.0-5.0 L MONOCYTE # (test code = MO#) 0.35 K/mm3 0-0.8 N EOSINOPHIL # (test code = EO#) 0.00 K/mm3 0.0-0.5 N BASOPHIL # (test code = BA#) 0.01 K/mm3 0.0-0.2 N NUCLEATED RBC # (test code = NRBC#) 0.00 K/mm3 0.0-0.1 N MANUAL DIFF REQUIRED (test code = MDIFF) NO, ONLY SCAN NEEDED DIFFERENTIAL [id number] 12:48:00* Test Item Value Reference Range Interpretation Comments STAIN ACCEPTABILITY (test code = STN ACCEPTABLE) CABOT RINGS (test code = CAB) MORPHOLOGY COMMENT (test code = MOC) PLATELET ESTIMATE (test code = PLTEST) PLATELET MORPHOLOGY (test code = PLTMORPH) LACTIC [id number] 10:44:00* Test Item Value Reference Range Interpretation Comments LACTIC ACID (test code = LACT) 4.6 mmol/L 0.4-1.9 HH Results called to [id number] by V.LAB.GP 05/31/19 1044Critical results verified and read back by Nurse? Y LACTIC [id number] 07:44:00* Test Item Value Reference Range Interpretation Comments LACTIC ACID (test code = LACT) 4.4 mmol/L 0.4-1.9 HH Results called to [id number] by V.LAB.GP 05/31/19 0744Critical results verified and read back by Nurse? Y LACTIC [id number] 05:15:00* Test Item Value Reference Range Interpretation Comments LACTIC ACID (test code = LACT) 6.5 mmol/L 0.4-1.9 HH Results called to [id number] by V.LAB.SADA 05/31/19 0515Critical results verified and read back by Nurse? Y COMPREHENSIVE METABOLIC [id number] 05:15:00* Test Item Value Reference Range Interpretation Comments SODIUM (test code = NA) 146 mmol/L 136-145 H POTASSIUM (test code = K) 4.2 mmol/L 3.5-5.1 N CHLORIDE (test code = CL) 117.0 mmol/L 98-107 H CARBON DIOXIDE (test code = CO2) 21.0 mmol/L 21-32 N ANION GAP (test code = GAP) 12.2 10-20 N GLUCOSE (test code = GLU) 161 mg/dL 74-106 H BLOOD UREA NITROGEN (test code = BUN) 27 mg/dL 7-18 H RESULT VERIFIED BY REPEAT ANALYSIS GLOMERULAR FILTRATION RATE (test code = GFR) > 60 mL/min >=60 Estimated GFR by using Modified MDRD formula.Chronic kidney disease is defined as either kidney damageor GFR <60 mL/min/1.73 m2 for >3 months. CREATININE (test code = CREAT) 0.70 mg/dL 0.55-1.02 N Note change in reference range due to change in reagent. BUN/CREATININE RATIO (test code = BUN/CREA) 38.6 10-20 H TOTAL PROTEIN (test code = PROT) 5.1 gram/dL 6.4-8.2 L ALBUMIN (test code = ALB) 1.2 g/dL 3.4-5.0 L GLOBULIN (test code = GLOB) 3.9 gram/dL 2.7-4.2 N ALBUMIN/GLOBULIN RATIO (test code = A/G) 0.3 0.75-1.50 L CALCIUM (test code = CA) 7.0 mg/dL 8.5-10.1 L BILIRUBIN TOTAL (test code = BILT) 1.40 mg/dL 0.0-1.0 H SGOT/AST (test code = AST) 131 IUnit/L 15-37 H SGPT/ALT (test code = ALT) 52 IUnit/L 12-78 N ALKALINE PHOSPHATASE TOTAL (test code = ALKP) 101 IUnit/L 45-117 N Note change in reference range due to change in reagent. [id number] 05:15:00* Test Item Value Reference Range Interpretation Comments PHOSPHORUS (test code = PHOS) 2.8 mg/dL 2.5-4.9 N [id number] 05:15:00* Test Item Value Reference Range Interpretation Comments MAGNESIUM (test code = MAG) 1.5 mg/dL 1.8-2.4 L CALCIUM [id number] 05:15:00* Test Item Value Reference Range Interpretation Comments CALCIUM IONIZED (test code = NORBERTO) 1.11 mmol/L 1.12-1.32 L [id number] 05:11:00* Test Item Value Reference Range Interpretation Comments TROPONIN-I (test code = TROPI) <0.015 ng/mL 0-0.045 N [id number] 05:02:00* Test Item Value Reference Range Interpretation Comments AMMONIA (test code = AMM) 102 umol/L 11-32 H PROTHROMBIN [id number] 04:56:00* Test Item Value Reference Range Interpretation Comments PROTHROMBIN TIME PATIENT (test code = PTP) 21.1 seconds 9.0-14.0 H INTERNATIONAL NORMAL RATIO (test code = INR) 1.8 0.8-1.2 H The therapeutic range for oral anticoagulant therapy formost indications is an international normalized ratio (INR)of between 2.0 and 3.0. The recommended therapeutic INRrange for various clinical situations is listed below: Clinical Situation INR range Pulmonary e mbolism treatment (2.0-3.0)Venous thrombosis treatmentVenous thrombosis prophylaxis (high risk surgery)Prevention of systemic embolism from: Acute myocardial infarction Valvular heart disease Atrial fibrillation Mechanical prosthetic heart valves (2.5-3.5) IS PATIENT ON ANTICOAGULANTS? NTHROMBOPLASTIN TIME [id number] 04:56:00* Test Item Value Reference Range Interpretation Comments THROMBOPLASTIN TIME PARTIAL (test code = PTT) 40.9 seconds 25.0-36. 5 H IS PATIENT ON ANTICOAGULANTS? NCOMPREHENSIVE METABOLIC [id number] 04:56:00 * Test Item Value Reference Range Interpretation Comments SODIUM (test code = NA) 146 mmol/L 136-145 H POTASSIUM (test code = K) 4.2 mmol/L 3.5-5.1 N CHLORIDE (test code = CL) 117.0 mmol/L 98-107 H CARBON DIOXIDE (test code = CO2) mmol/L 21-32 ANION GAP (test code = GAP) 10-20 GLUCOSE (test code = GLU) mg/dL 74-106 BLOOD UREA NITROGEN (test code = BUN) mg/dL 7-18 GLOMERULAR FILTRATION RATE (test code = GFR) mL/min >=60 CREATININE (test code = CREAT) mg/dL 0.55-1.02 BUN/CREATININE RATIO (test code = BUN/CREA) 10-20 TOTAL PROTEIN (test code = PROT) gram/dL 6.4-8.2 ALBUMIN (test code = ALB) g/dL 3.4-5.0 GLOBULIN (test code = GLOB) gram/dL 2.7-4.2 ALBUMIN/GLOBULIN RATIO (test code = A/G) 0.75-1.50 CALCIUM (test code = CA) mg/dL 8.5-10.1 BILIRUBIN TOTAL (test code = BILT) mg/dL 0.0-1.0 SGOT/AST (test code = AST) IUnit/L 15-37 SGPT/ALT (test code = ALT) IUnit/L 12-78 ALKALINE PHOSPHATASE TOTAL (test code = ALKP) IUnit/L 45-117 [id number] 04:56:00* Test Item Value Reference Range Interpretation Comments PHOSPHORUS (test code = PHOS) mg/dL 2.5-4.9 [id number] 04:56:00* Test Item Value Reference Range Interpretation Comments MAGNESIUM (test code = MAG) mg/dL 1.8-2.4 CALCIUM [id number] 04:56:00* Test Item Value Reference Range Interpretation Comments CALCIUM IONIZED (test code = NORBERTO) 1.11 mmol/L 1.12-1.32 L COMPREHENSIVE METABOLIC [id number] 04:52:00* Test Item Value Reference Range Interpretation Comments SODIUM (test code = NA) mmol/L 136-145 POTASSIUM (test code = K) mmol/L 3.5-5.1 CHLORIDE (test code = CL) mmol/L 98-107 CARBON DIOXIDE (test code = CO2) mmol/L 21-32 ANION GAP (test code = GAP) 10-20 GLUCOSE (test code = GLU) mg/dL 74-106 BLOOD UREA NITROGEN (test code = BUN) mg/dL 7-18 GLOMERULAR FILTRATION RATE (test code = GFR) mL/min >=60 CREATININE (test code = CREAT) mg/dL 0.55-1.02 BUN/CREATININE RATIO (test code = BUN/CREA) 10-20 TOTAL PROTEIN (test code = PROT) gram/dL 6.4-8.2 ALBUMIN (test code = ALB) g/dL 3.4-5.0 GLOBULIN (test code = GLOB) gram/dL 2.7-4.2 ALBUMIN/GLOBULIN RATIO (test code = A/G) 0.75-1.50 CALCIUM (test code = CA) mg/dL 8.5-10.1 BILIRUBIN TOTAL (test code = BILT) mg/dL 0.0-1.0 SGOT/AST (test code = AST) IUnit/L 15-37 SGPT/ALT (test code = ALT) IUnit/L 12-78 ALKALINE PHOSPHATASE TOTAL (test code = ALKP) IUnit/L 45-117 [id number] 04:52:00* Test Item Value Reference Range Interpretation Comments PHOSPHORUS (test code = PHOS) mg/dL 2.5-4.9 [id number] 04:52:00* Test Item Value Reference Range Interpretation Comments MAGNESIUM (test code = MAG) mg/dL 1.8-2.4 CALCIUM [id number] 04:52:00* Test Item Value Reference Range Interpretation Comments CALCIUM IONIZED (test code = NORBERTO) 1.11 mmol/L 1.12-1.32 L CBC W/AUTO [id number] 04:50:00* Test Item Value Reference Range Interpretation Comments WHITE BLOOD CELL (test code = WBC) 12.3 K/mm3 4.5-12.5 N RED BLOOD CELL (test code = RBC) 2.60 mill/mm3 3.7-5.2 L HEMOGLOBIN (test code = HGB) 8.3 gram/dL 11.5-15.5 L RESULT VERIFIED BY REPEAT ANALYSIS HEMATOCRIT (test code = HCT) 25.6 % 36.0-46.0 L MEAN CELL VOLUME (test code = MCV) 98.5 fL 80-98 H MEAN CELL HGB (test code = MCH) 31.9 picogram 27.0-33.0 N MEAN CELL HGB CONCETRATION (test code = MCHC) 32.4 gram/dL 33.0-36. 0 L RED CELL DISTRIBUTION WIDTH (test code = RDW) 15.6 % 11.6-16. 2 N RED CELL DISTRIBUTION WIDTH SD (test code = RDW-SD) 54.4 fL 37 .0-51.0 H PLATELET COUNT (test code = PLT) 70 K/mm3 150-450 L MEAN PLATELET VOLUME (test code = MPV) 12.6 fL 6.7-11.0 H NEUTROPHIL % (test code = NT%) 87.4 % 39.0-69.0 H IMMATURE GRANULOCYTE % (test code = IG%) 0.9 % 0.0-5.0 N LYMPHOCYTE % (test code = LY%) 7.8 % 25.0-55.0 L MONOCYTE % (test code = MO%) 3.7 % 0.0-10.0 N EOSINOPHIL % (test code = EO%) 0.1 % 0.0-5.0 N BASOPHIL % (test code = BA%) 0.1 % 0.0-1.0 N NUCLEATED RBC % (test code = NRBC%) 0.0 % 0-0 N NEUTROPHIL # (test code = NT#) 10.74 K/mm3 1.8-7.7 H IMMATURE GRANULOCYTE # (test code = IG#) 0.11 x10 3/uL 0-0.03 H LYMPHOCYTE # (test code = LY#) 0.96 K/mm3 1.0-5.0 L MONOCYTE # (test code = MO#) 0.45 K/mm3 0-0.8 N EOSINOPHIL # (test code = EO#) 0.01 K/mm3 0.0-0.5 N BASOPHIL # (test code = BA#) 0.01 K/mm3 0.0-0.2 N NUCLEATED RBC # (test code = NRBC#) 0.00 K/mm3 0.0-0.1 N LACTIC [id number] 01:41:00* Test Item Value Reference Range Interpretation Comments LACTIC ACID (test code = LACT) 9.4 mmol/L 0.4-1.9 Results called to [id number] by V.LAB.JP1 05/31/19 0141Critical results verified and read back by Nurse? YES CBC W/AUTO [id number] 23:34:00* Test Item Value Reference Range Interpretation Comments WHITE BLOOD CELL (test code = WBC) 10.4 K/mm3 4.5-12.5 N RED BLOOD CELL (test code = RBC) 1.95 mill/mm3 3.7-5.2 L HEMOGLOBIN (test code = HGB) 6.2 gram/dL 11.5-15.5 L HEMATOCRIT (test code = HCT) 19.3 % 36.0-46.0 LL Results called to [id number] by V.LAB.LL 05/30/19 2125Critical results verified and read back by Nurse? Y MEAN CELL VOLUME (test code = MCV) 99.0 fL 80-98 H MEAN CELL HGB (test code = MCH) 31.8 picogram 27.0-33.0 N MEAN CELL HGB CONCETRATION (test code = MCHC) 32.1 gram/dL 33.0-36. 0 L RED CELL DISTRIBUTION WIDTH (test code = RDW) 16.2 % 11.6-16. 2 N RED CELL DISTRIBUTION WIDTH SD (test code = RDW-SD) 56.8 fL 37 .0-51.0 H PLATELET COUNT (test code = PLT) 77 K/mm3 150-450 L RESULT VERIFIED BY REPEAT ANALYSIS MEAN PLATELET VOLUME (test code = MPV) 12.4 fL 6.7-11.0 H NEUTROPHIL % (test code = NT%) 88.1 % 39.0-69.0 H IMMATURE GRANULOCYTE % (test code = IG%) 1.0 % 0.0-5.0 N LYMPHOCYTE % (test code = LY%) 7.6 % 25.0-55.0 L MONOCYTE % (test code = MO%) 3.2 % 0.0-10.0 N EOSINOPHIL % (test code = EO%) 0.1 % 0.0-5.0 N BASOPHIL % (test code = BA%) 0.0 % 0.0-1.0 N NUCLEATED RBC % (test code = NRBC%) 0.0 % 0-0 N NEUTROPHIL # (test code = NT#) 9.17 K/mm3 1.8-7.7 H IMMATURE GRANULOCYTE # (test code = IG#) 0.10 x10 3/uL 0-0.03 H LYMPHOCYTE # (test code = LY#) 0.79 K/mm3 1.0-5.0 L MONOCYTE # (test code = MO#) 0.33 K/mm3 0-0.8 N EOSINOPHIL # (test code = EO#) 0.01 K/mm3 0.0-0.5 N BASOPHIL # (test code = BA#) 0.00 K/mm3 0.0-0.2 N NUCLEATED RBC # (test code = NRBC#) 0.00 K/mm3 0.0-0.1 N MANUAL DIFF REQUIRED (test code = MDIFF) NO, ONLY SCAN NEEDED DIFFERENTIAL [id number] 23:34:00* Test Item Value Reference Range Interpretation Comments STAIN ACCEPTABILITY (test code = STN ACCEPTABLE) STAIN ACCEPTABLE HYPOCHROMIA (test code = HYPO) 1+ ANISOCYTOSIS (test code = ANISO) 1+ PLATELET ESTIMATE (test code = PLTEST) DECREASED PLATELET MORPHOLOGY (test code = PLTMORPH) NORMAL [id number] 21:34:00* Test Item Value Reference Range Interpretation Comments TROPONIN-I (test code = TROPI) <0.015 ng/mL 0-0.045 N LACTIC [id number] 21:28:00* Test Item Value Reference Range Interpretation Comments LACTIC ACID (test code = LACT) 6.8 mmol/L 0.4-1.9 HH Results called to [id number] by Covercake[facility].SPR 05/30/197Critical results verified and read back by Nurse? Y CBC W/AUTO [id number] 21:26:00* Test Item Value Reference Range Interpretation Comments WHITE BLOOD CELL (test code = WBC) 10.4 K/mm3 4.5-12.5 N RED BLOOD CELL (test code = RBC) 1.95 mill/mm3 3.7-5.2 L HEMOGLOBIN (test code = HGB) 6.2 gram/dL 11.5-15.5 L HEMATOCRIT (test code = HCT) 19.3 % 36.0-46.0 LL Results called to [id number] by Covercake[facility].LL 05/30/19 2125Critical results verified and read back by Nurse? Y MEAN CELL VOLUME (test code = MCV) 99.0 fL 80-98 H MEAN CELL HGB (test code = MCH) 31.8 picogram 27.0-33.0 N MEAN CELL HGB CONCETRATION (test code = MCHC) 32.1 gram/dL 33.0-36. 0 L RED CELL DISTRIBUTION WIDTH (test code = RDW) 16.2 % 11.6-16. 2 N RED CELL DISTRIBUTION WIDTH SD (test code = RDW-SD) 56.8 fL 37 .0-51.0 H PLATELET COUNT (test code = PLT) 77 K/mm3 150-450 L RESULT VERIFIED BY REPEAT ANALYSIS MEAN PLATELET VOLUME (test code = MPV) 12.4 fL 6.7-11.0 H NEUTROPHIL % (test code = NT%) 88.1 % 39.0-69.0 H IMMATURE GRANULOCYTE % (test code = IG%) 1.0 % 0.0-5.0 N LYMPHOCYTE % (test code = LY%) 7.6 % 25.0-55.0 L MONOCYTE % (test code = MO%) 3.2 % 0.0-10.0 N EOSINOPHIL % (test code = EO%) 0.1 % 0.0-5.0 N BASOPHIL % (test code = BA%) 0.0 % 0.0-1.0 N NUCLEATED RBC % (test code = NRBC%) 0.0 % 0-0 N NEUTROPHIL # (test code = NT#) 9.17 K/mm3 1.8-7.7 H IMMATURE GRANULOCYTE # (test code = IG#) 0.10 x10 3/uL 0-0.03 H LYMPHOCYTE # (test code = LY#) 0.79 K/mm3 1.0-5.0 L MONOCYTE # (test code = MO#) 0.33 K/mm3 0-0.8 N EOSINOPHIL # (test code = EO#) 0.01 K/mm3 0.0-0.5 N BASOPHIL # (test code = BA#) 0.00 K/mm3 0.0-0.2 N NUCLEATED RBC # (test code = NRBC#) 0.00 K/mm3 0.0-0.1 N MANUAL DIFF REQUIRED (test code = MDIFF) NO, ONLY SCAN NEEDED DIFFERENTIAL [id number] 21:26:00* Test Item Value Reference Range Interpretation Comments STAIN ACCEPTABILITY (test code = STN ACCEPTABLE) CABOT RINGS (test code = CAB) MORPHOLOGY COMMENT (test code = MOC) PLATELET ESTIMATE (test code = PLTEST) PLATELET MORPHOLOGY (test code = PLTMORPH) CBC W/AUTO [id number] 21:26:00* Test Item Value Reference Range Interpretation Comments WHITE BLOOD CELL (test code = WBC) 10.4 K/mm3 4.5-12.5 N RED BLOOD CELL (test code = RBC) 1.95 mill/mm3 3.7-5.2 L HEMOGLOBIN (test code = HGB) 6.2 gram/dL 11.5-15.5 L HEMATOCRIT (test code = HCT) 19.3 % 36.0-46.0 LL Results called to [id number] by V.LAB.LL 05/30/19 2125Critical results verified and read back by Nurse? Y MEAN CELL VOLUME (test code = MCV) 99.0 fL 80-98 H MEAN CELL HGB (test code = MCH) 31.8 picogram 27.0-33.0 N MEAN CELL HGB CONCETRATION (test code = MCHC) 32.1 gram/dL 33.0-36. 0 L RED CELL DISTRIBUTION WIDTH (test code = RDW) 16.2 % 11.6-16. 2 N RED CELL DISTRIBUTION WIDTH SD (test code = RDW-SD) 56.8 fL 37 .0-51.0 H PLATELET COUNT (test code = PLT) 77 K/mm3 150-450 L RESULT VERIFIED BY REPEAT ANALYSIS MEAN PLATELET VOLUME (test code = MPV) 12.4 fL 6.7-11.0 H NEUTROPHIL % (test code = NT%) 88.1 % 39.0-69.0 H IMMATURE GRANULOCYTE % (test code = IG%) 1.0 % 0.0-5.0 N LYMPHOCYTE % (test code = LY%) 7.6 % 25.0-55.0 L MONOCYTE % (test code = MO%) 3.2 % 0.0-10.0 N EOSINOPHIL % (test code = EO%) 0.1 % 0.0-5.0 N BASOPHIL % (test code = BA%) 0.0 % 0.0-1.0 N NUCLEATED RBC % (test code = NRBC%) 0.0 % 0-0 N NEUTROPHIL # (test code = NT#) 9.17 K/mm3 1.8-7.7 H IMMATURE GRANULOCYTE # (test code = IG#) 0.10 x10 3/uL 0-0.03 H LYMPHOCYTE # (test code = LY#) 0.79 K/mm3 1.0-5.0 L MONOCYTE # (test code = MO#) 0.33 K/mm3 0-0.8 N EOSINOPHIL # (test code = EO#) 0.01 K/mm3 0.0-0.5 N BASOPHIL # (test code = BA#) 0.00 K/mm3 0.0-0.2 N NUCLEATED RBC # (test code = NRBC#) 0.00 K/mm3 0.0-0.1 N MANUAL DIFF REQUIRED (test code = MDIFF) NO, ONLY SCAN NEEDED DIFFERENTIAL [id number] 21:26:00* Test Item Value Reference Range Interpretation Comments STAIN ACCEPTABILITY (test code = STN ACCEPTABLE) MORPHOLOGY COMMENT (test code = MOC) PLATELET ESTIMATE (test code = PLTEST) PLATELET MORPHOLOGY (test code = PLTMORPH) CBC W/AUTO [id number] 21:25:00* Test Item Value Reference Range Interpretation Comments WHITE BLOOD CELL (test code = WBC) 10.4 K/mm3 4.5-12.5 N RED BLOOD CELL (test code = RBC) 1.95 mill/mm3 3.7-5.2 L HEMOGLOBIN (test code = HGB) 6.2 gram/dL 11.5-15.5 L HEMATOCRIT (test code = HCT) 19.3 % 36.0-46.0 LL Results called to [id number] by [email or web address] 05/30/19 2125Critical results verified and read back by Nurse? Y MEAN CELL VOLUME (test code = MCV) 99.0 fL 80-98 H MEAN CELL HGB (test code = MCH) 31.8 picogram 27.0-33.0 N MEAN CELL HGB CONCETRATION (test code = MCHC) 32.1 gram/dL 33.0-36. 0 L RED CELL DISTRIBUTION WIDTH (test code = RDW) 16.2 % 11.6-16. 2 N RED CELL DISTRIBUTION WIDTH SD (test code = RDW-SD) 56.8 fL 37 .0-51.0 H PLATELET COUNT (test code = PLT) 77 K/mm3 150-450 L RESULT VERIFIED BY REPEAT ANALYSIS MEAN PLATELET VOLUME (test code = MPV) 12.4 fL 6.7-11.0 H NEUTROPHIL % (test code = NT%) 88.1 % 39.0-69.0 H IMMATURE GRANULOCYTE % (test code = IG%) 1.0 % 0.0-5.0 N LYMPHOCYTE % (test code = LY%) 7.6 % 25.0-55.0 L MONOCYTE % (test code = MO%) 3.2 % 0.0-10.0 N EOSINOPHIL % (test code = EO%) 0.1 % 0.0-5.0 N BASOPHIL % (test code = BA%) 0.0 % 0.0-1.0 N NUCLEATED RBC % (test code = NRBC%) 0.0 % 0-0 N NEUTROPHIL # (test code = NT#) 9.17 K/mm3 1.8-7.7 H IMMATURE GRANULOCYTE # (test code = IG#) 0.10 x10 3/uL 0-0.03 H LYMPHOCYTE # (test code = LY#) 0.79 K/mm3 1.0-5.0 L MONOCYTE # (test code = MO#) 0.33 K/mm3 0-0.8 N EOSINOPHIL # (test code = EO#) 0.01 K/mm3 0.0-0.5 N BASOPHIL # (test code = BA#) 0.00 K/mm3 0.0-0.2 N NUCLEATED RBC # (test code = NRBC#) 0.00 K/mm3 0.0-0.1 N MANUAL DIFF REQUIRED (test code = MDIFF) NO, ONLY SCAN NEEDED DIFFERENTIAL [id number] 21:25:00* Test Item Value Reference Range Interpretation Comments STAIN ACCEPTABILITY (test code = STN ACCEPTABLE) CABOT RINGS (test code = CAB) MORPHOLOGY COMMENT (test code = MOC) PLATELET ESTIMATE (test code = PLTEST) PLATELET MORPHOLOGY (test code = PLTMORPH) CBC W/AUTO [id number] 21:25:00* Test Item Value Reference Range Interpretation Comments WHITE BLOOD CELL (test code = WBC) 10.4 K/mm3 4.5-12.5 N RED BLOOD CELL (test code = RBC) 1.95 mill/mm3 3.7-5.2 L HEMOGLOBIN (test code = HGB) 6.2 gram/dL 11.5-15.5 L HEMATOCRIT (test code = HCT) 19.3 % 36.0-46.0 LL Results called to [id number] by V.[facility]. 05/30/19 2125Critical results verified and read back by Nurse? Y MEAN CELL VOLUME (test code = MCV) 99.0 fL 80-98 H MEAN CELL HGB (test code = MCH) 31.8 picogram 27.0-33.0 N MEAN CELL HGB CONCETRATION (test code = MCHC) 32.1 gram/dL 33.0-36. 0 L RED CELL DISTRIBUTION WIDTH (test code = RDW) 16.2 % 11.6-16. 2 N RED CELL DISTRIBUTION WIDTH SD (test code = RDW-SD) 56.8 fL 37 .0-51.0 H PLATELET COUNT (test code = PLT) 77 K/mm3 150-450 L RESULT VERIFIED BY REPEAT ANALYSIS MEAN PLATELET VOLUME (test code = MPV) 12.4 fL 6.7-11.0 H NEUTROPHIL % (test code = NT%) 88.1 % 39.0-69.0 H IMMATURE GRANULOCYTE % (test code = IG%) 1.0 % 0.0-5.0 N LYMPHOCYTE % (test code = LY%) 7.6 % 25.0-55.0 L MONOCYTE % (test code = MO%) 3.2 % 0.0-10.0 N EOSINOPHIL % (test code = EO%) 0.1 % 0.0-5.0 N BASOPHIL % (test code = BA%) 0.0 % 0.0-1.0 N NUCLEATED RBC % (test code = NRBC%) 0.0 % 0-0 N NEUTROPHIL # (test code = NT#) 9.17 K/mm3 1.8-7.7 H IMMATURE GRANULOCYTE # (test code = IG#) 0.10 x10 3/uL 0-0.03 H LYMPHOCYTE # (test code = LY#) 0.79 K/mm3 1.0-5.0 L MONOCYTE # (test code = MO#) 0.33 K/mm3 0-0.8 N EOSINOPHIL # (test code = EO#) 0.01 K/mm3 0.0-0.5 N BASOPHIL # (test code = BA#) 0.00 K/mm3 0.0-0.2 N NUCLEATED RBC # (test code = NRBC#) 0.00 K/mm3 0.0-0.1 N MANUAL DIFF REQUIRED (test code = MDIFF) NO, ONLY SCAN NEEDED DIFFERENTIAL [id number] 21:25:00* Test Item Value Reference Range Interpretation Comments STAIN ACCEPTABILITY (test code = STN ACCEPTABLE) CABOT RINGS (test code = CAB) MORPHOLOGY COMMENT (test code = MOC) PLATELET ESTIMATE (test code = PLTEST) PLATELET MORPHOLOGY (test code = PLTMORPH) [id number] 21:23:00* Test Item Value Reference Range Interpretation Comments AMMONIA (test code = AMM) 98 umol/L 11-32 H CBC W/AUTO [id number] 12:27:00* Test Item Value Reference Range Interpretation Comments WHITE BLOOD CELL (test code = WBC) 14.6 K/mm3 4.5-12.5 H RED BLOOD CELL (test code = RBC) 2.21 mill/mm3 3.7-5.2 L HEMOGLOBIN (test code = HGB) 7.2 gram/dL 11.5-15.5 L HEMATOCRIT (test code = HCT) 23.1 % 36.0-46.0 L MEAN CELL VOLUME (test code = MCV) 104.5 fL 80-98 H MEAN CELL HGB (test code = MCH) 32.6 picogram 27.0-33.0 N MEAN CELL HGB CONCETRATION (test code = MCHC) 31.2 gram/dL 33.0-36. 0 L RED CELL DISTRIBUTION WIDTH (test code = RDW) 15.9 % 11.6-16. 2 N RED CELL DISTRIBUTION WIDTH SD (test code = RDW-SD) 59.4 fL 37 .0-51.0 H PLATELET COUNT (test code = PLT) 86 K/mm3 150-450 L MEAN PLATELET VOLUME (test code = MPV) 12.3 fL 6.7-11.0 H NEUTROPHIL % (test code = NT%) 89.3 % 39.0-69.0 H IMMATURE GRANULOCYTE % (test code = IG%) 1.7 % 0.0-5.0 N LYMPHOCYTE % (test code = LY%) 5.6 % 25.0-55.0 L MONOCYTE % (test code = MO%) 3.1 % 0.0-10.0 N EOSINOPHIL % (test code = EO%) 0.1 % 0.0-5.0 N BASOPHIL % (test code = BA%) 0.2 % 0.0-1.0 N NUCLEATED RBC % (test code = NRBC%) 0.0 % 0-0 N NEUTROPHIL # (test code = NT#) 13.04 K/mm3 1.8-7.7 H IMMATURE GRANULOCYTE # (test code = IG#) 0.25 x10 3/uL 0-0.03 H LYMPHOCYTE # (test code = LY#) 0.82 K/mm3 1.0-5.0 L MONOCYTE # (test code = MO#) 0.46 K/mm3 0-0.8 N EOSINOPHIL # (test code = EO#) 0.01 K/mm3 0.0-0.5 N BASOPHIL # (test code = BA#) 0.03 K/mm3 0.0-0.2 N NUCLEATED RBC # (test code = NRBC#) 0.00 K/mm3 0.0-0.1 N MANUAL DIFF REQUIRED (test code = MDIFF) NO, ONLY SCAN NEEDED DIFFERENTIAL [id number] 12:27:00* Test Item Value Reference Range Interpretation Comments STAIN ACCEPTABILITY (test code = STN ACCEPTABLE) STAIN ACCEPTABLE PLATELET ESTIMATE (test code = PLTEST) DECREASED PLATELET MORPHOLOGY (test code = PLTMORPH) NORMAL LACTIC [id number] 11:28:00* Test Item Value Reference Range Interpretation Comments LACTIC ACID (test code = LACT) 6.6 mmol/L 0.4-1.9 HH Results called to [id number] by V.LAB.LDB 05/30/19 1126Critical results verified and read back by Nurse? Y CBC W/AUTO [id number] 10:59:00* Test Item Value Reference Range Interpretation Comments WHITE BLOOD CELL (test code = WBC) 14.6 K/mm3 4.5-12.5 H RED BLOOD CELL (test code = RBC) 2.21 mill/mm3 3.7-5.2 L HEMOGLOBIN (test code = HGB) 7.2 gram/dL 11.5-15.5 L HEMATOCRIT (test code = HCT) 23.1 % 36.0-46.0 L MEAN CELL VOLUME (test code = MCV) 104.5 fL 80-98 H MEAN CELL HGB (test code = MCH) 32.6 picogram 27.0-33.0 N MEAN CELL HGB CONCETRATION (test code = MCHC) 31.2 gram/dL 33.0-36. 0 L RED CELL DISTRIBUTION WIDTH (test code = RDW) 15.9 % 11.6-16. 2 N RED CELL DISTRIBUTION WIDTH SD (test code = RDW-SD) 59.4 fL 37 .0-51.0 H PLATELET COUNT (test code = PLT) 86 K/mm3 150-450 L MEAN PLATELET VOLUME (test code = MPV) 12.3 fL 6.7-11.0 H NEUTROPHIL % (test code = NT%) 89.3 % 39.0-69.0 H IMMATURE GRANULOCYTE % (test code = IG%) 1.7 % 0.0-5.0 N LYMPHOCYTE % (test code = LY%) 5.6 % 25.0-55.0 L MONOCYTE % (test code = MO%) 3.1 % 0.0-10.0 N EOSINOPHIL % (test code = EO%) 0.1 % 0.0-5.0 N BASOPHIL % (test code = BA%) 0.2 % 0.0-1.0 N NUCLEATED RBC % (test code = NRBC%) 0.0 % 0-0 N NEUTROPHIL # (test code = NT#) 13.04 K/mm3 1.8-7.7 H IMMATURE GRANULOCYTE # (test code = IG#) 0.25 x10 3/uL 0-0.03 H LYMPHOCYTE # (test code = LY#) 0.82 K/mm3 1.0-5.0 L MONOCYTE # (test code = MO#) 0.46 K/mm3 0-0.8 N EOSINOPHIL # (test code = EO#) 0.01 K/mm3 0.0-0.5 N BASOPHIL # (test code = BA#) 0.03 K/mm3 0.0-0.2 N NUCLEATED RBC # (test code = NRBC#) 0.00 K/mm3 0.0-0.1 N MANUAL DIFF REQUIRED (test code = MDIFF) NO, ONLY SCAN NEEDED DIFFERENTIAL [id number] 10:59:00* Test Item Value Reference Range Interpretation Comments STAIN ACCEPTABILITY (test code = STN ACCEPTABLE) CABOT RINGS (test code = CAB) MORPHOLOGY COMMENT (test code = MOC) PLATELET ESTIMATE (test code = PLTEST) PLATELET MORPHOLOGY (test code = PLTMORPH) CBC W/AUTO [id number] 10:59:00* Test Item Value Reference Range Interpretation Comments WHITE BLOOD CELL (test code = WBC) 14.6 K/mm3 4.5-12.5 H RED BLOOD CELL (test code = RBC) 2.21 mill/mm3 3.7-5.2 L HEMOGLOBIN (test code = HGB) 7.2 gram/dL 11.5-15.5 L HEMATOCRIT (test code = HCT) 23.1 % 36.0-46.0 L MEAN CELL VOLUME (test code = MCV) 104.5 fL 80-98 H MEAN CELL HGB (test code = MCH) 32.6 picogram 27.0-33.0 N MEAN CELL HGB CONCETRATION (test code = MCHC) 31.2 gram/dL 33.0-36. 0 L RED CELL DISTRIBUTION WIDTH (test code = RDW) 15.9 % 11.6-16. 2 N RED CELL DISTRIBUTION WIDTH SD (test code = RDW-SD) 59.4 fL 37 .0-51.0 H PLATELET COUNT (test code = PLT) 86 K/mm3 150-450 L MEAN PLATELET VOLUME (test code = MPV) 12.3 fL 6.7-11.0 H NEUTROPHIL % (test code = NT%) 89.3 % 39.0-69.0 H IMMATURE GRANULOCYTE % (test code = IG%) 1.7 % 0.0-5.0 N LYMPHOCYTE % (test code = LY%) 5.6 % 25.0-55.0 L MONOCYTE % (test code = MO%) 3.1 % 0.0-10.0 N EOSINOPHIL % (test code = EO%) 0.1 % 0.0-5.0 N BASOPHIL % (test code = BA%) 0.2 % 0.0-1.0 N NUCLEATED RBC % (test code = NRBC%) 0.0 % 0-0 N NEUTROPHIL # (test code = NT#) 13.04 K/mm3 1.8-7.7 H IMMATURE GRANULOCYTE # (test code = IG#) 0.25 x10 3/uL 0-0.03 H LYMPHOCYTE # (test code = LY#) 0.82 K/mm3 1.0-5.0 L MONOCYTE # (test code = MO#) 0.46 K/mm3 0-0.8 N EOSINOPHIL # (test code = EO#) 0.01 K/mm3 0.0-0.5 N BASOPHIL # (test code = BA#) 0.03 K/mm3 0.0-0.2 N NUCLEATED RBC # (test code = NRBC#) 0.00 K/mm3 0.0-0.1 N MANUAL DIFF REQUIRED (test code = MDIFF) NO, ONLY SCAN NEEDED DIFFERENTIAL [id number] 10:59:00* Test Item Value Reference Range Interpretation Comments STAIN ACCEPTABILITY (test code = STN ACCEPTABLE) CABOT RINGS (test code = CAB) MORPHOLOGY COMMENT (test code = MOC) PLATELET ESTIMATE (test code = PLTEST) PLATELET MORPHOLOGY (test code = PLTMORPH) CBC W/AUTO [id number] 10:59:00* Test Item Value Reference Range Interpretation Comments WHITE BLOOD CELL (test code = WBC) 14.6 K/mm3 4.5-12.5 H RED BLOOD CELL (test code = RBC) 2.21 mill/mm3 3.7-5.2 L HEMOGLOBIN (test code = HGB) 7.2 gram/dL 11.5-15.5 L HEMATOCRIT (test code = HCT) 23.1 % 36.0-46.0 L MEAN CELL VOLUME (test code = MCV) 104.5 fL 80-98 H MEAN CELL HGB (test code = MCH) 32.6 picogram 27.0-33.0 N MEAN CELL HGB CONCETRATION (test code = MCHC) 31.2 gram/dL 33.0-36. 0 L RED CELL DISTRIBUTION WIDTH (test code = RDW) 15.9 % 11.6-16. 2 N RED CELL DISTRIBUTION WIDTH SD (test code = RDW-SD) 59.4 fL 37 .0-51.0 H PLATELET COUNT (test code = PLT) 86 K/mm3 150-450 L MEAN PLATELET VOLUME (test code = MPV) 12.3 fL 6.7-11.0 H NEUTROPHIL % (test code = NT%) 89.3 % 39.0-69.0 H IMMATURE GRANULOCYTE % (test code = IG%) 1.7 % 0.0-5.0 N LYMPHOCYTE % (test code = LY%) 5.6 % 25.0-55.0 L MONOCYTE % (test code = MO%) 3.1 % 0.0-10.0 N EOSINOPHIL % (test code = EO%) 0.1 % 0.0-5.0 N BASOPHIL % (test code = BA%) 0.2 % 0.0-1.0 N NUCLEATED RBC % (test code = NRBC%) 0.0 % 0-0 N NEUTROPHIL # (test code = NT#) 13.04 K/mm3 1.8-7.7 H IMMATURE GRANULOCYTE # (test code = IG#) 0.25 x10 3/uL 0-0.03 H LYMPHOCYTE # (test code = LY#) 0.82 K/mm3 1.0-5.0 L MONOCYTE # (test code = MO#) 0.46 K/mm3 0-0.8 N EOSINOPHIL # (test code = EO#) 0.01 K/mm3 0.0-0.5 N BASOPHIL # (test code = BA#) 0.03 K/mm3 0.0-0.2 N NUCLEATED RBC # (test code = NRBC#) 0.00 K/mm3 0.0-0.1 N MANUAL DIFF REQUIRED (test code = MDIFF) NO, ONLY SCAN NEEDED DIFFERENTIAL [id number] 10:59:00* Test Item Value Reference Range Interpretation Comments STAIN ACCEPTABILITY (test code = STN ACCEPTABLE) MORPHOLOGY COMMENT (test code = MOC) PLATELET ESTIMATE (test code = PLTEST) PLATELET MORPHOLOGY (test code = PLTMORPH) CBC W/AUTO [id number] 10:59:00* Test Item Value Reference Range Interpretation Comments WHITE BLOOD CELL (test code = WBC) 14.6 K/mm3 4.5-12.5 H RED BLOOD CELL (test code = RBC) 2.21 mill/mm3 3.7-5.2 L HEMOGLOBIN (test code = HGB) 7.2 gram/dL 11.5-15.5 L HEMATOCRIT (test code = HCT) 23.1 % 36.0-46.0 L MEAN CELL VOLUME (test code = MCV) 104.5 fL 80-98 H MEAN CELL HGB (test code = MCH) 32.6 picogram 27.0-33.0 N MEAN CELL HGB CONCETRATION (test code = MCHC) 31.2 gram/dL 33.0-36. 0 L RED CELL DISTRIBUTION WIDTH (test code = RDW) 15.9 % 11.6-16. 2 N RED CELL DISTRIBUTION WIDTH SD (test code = RDW-SD) 59.4 fL 37 .0-51.0 H PLATELET COUNT (test code = PLT) 86 K/mm3 150-450 L MEAN PLATELET VOLUME (test code = MPV) 12.3 fL 6.7-11.0 H NEUTROPHIL % (test code = NT%) 89.3 % 39.0-69.0 H IMMATURE GRANULOCYTE % (test code = IG%) 1.7 % 0.0-5.0 N LYMPHOCYTE % (test code = LY%) 5.6 % 25.0-55.0 L MONOCYTE % (test code = MO%) 3.1 % 0.0-10.0 N EOSINOPHIL % (test code = EO%) 0.1 % 0.0-5.0 N BASOPHIL % (test code = BA%) 0.2 % 0.0-1.0 N NUCLEATED RBC % (test code = NRBC%) 0.0 % 0-0 N NEUTROPHIL # (test code = NT#) 13.04 K/mm3 1.8-7.7 H IMMATURE GRANULOCYTE # (test code = IG#) 0.25 x10 3/uL 0-0.03 H LYMPHOCYTE # (test code = LY#) 0.82 K/mm3 1.0-5.0 L MONOCYTE # (test code = MO#) 0.46 K/mm3 0-0.8 N EOSINOPHIL # (test code = EO#) 0.01 K/mm3 0.0-0.5 N BASOPHIL # (test code = BA#) 0.03 K/mm3 0.0-0.2 N NUCLEATED RBC # (test code = NRBC#) 0.00 K/mm3 0.0-0.1 N MANUAL DIFF REQUIRED (test code = MDIFF) NO, ONLY SCAN NEEDED DIFFERENTIAL [id number] 10:59:00* Test Item Value Reference Range Interpretation Comments STAIN ACCEPTABILITY (test code = STN ACCEPTABLE) CABOT RINGS (test code = CAB) MORPHOLOGY COMMENT (test code = MOC) PLATELET ESTIMATE (test code = PLTEST) PLATELET MORPHOLOGY (test code = PLTMORPH) LACTIC [id number] 10:11:00* Test Item Value Reference Range Interpretation Comments LACTIC ACID (test code = LACT) 6.3 mmol/L 0.4-1.9 HH Results called to [id number] by ANTELMO 05/30/19 1010Critical results verified and read back by Nurse? Y URINALYSIS [id number] 07:05:00* Test Item Value Reference Range Interpretation Comments UA COLOR (test code = COLU) Light-Newberry YELLOW UA APPEARANCE (test code = APPU) HAZY CLEAR A UA GLUCOSE DIPSTICK (test code = DGLUU) NEGATIVE mg/dL NEGATIVE UA BILIRUBIN DIPSTICK (test code = BILU) NEGATIVE mg/dL NEGATIVE UA KETONE DIPSTICK (test code = KETU) TRACE mg/dL NEGATIVE A UA SPECIFIC GRAVITY (test code = SGU) 1.025 1.001-1.035 UA BLOOD DIPSTICK (test code = HAKAN) 0.03 mg/dL (Trace) mg/dL NEGATI VE A UA PH DIPSTICK (test code = RAJINDER) 7.0 5.0-8.0 UA PROTEIN DIPSTICK (test code = PROU) 50 (1+) mg/dL NEGATIVE A UA UROBILINIOGEN DIPSTICK (test code = URO) 3.0 (1+) mg/dL NEGATIVE A UA NITRITE DIPSTICK (test code = DEMARCO) NEGATIVE NEGATIVE UA LEUKOCYTE ESTERASE W REFLEX (test code = LEUUR) NEGATIVE Josh/uL NEGATIVE UA WBC (test code = WBCU) 0-5 per HPF 0-5 UA RBC (test code = RBCU) 0-2 #/HPF 0-5 UA EPITHELIAL CELLS (test code = EPIU) FEW per HPF FEW UA BACTERIA (test code = BACU) FEW #/HPF NONE A UA HYALINE CAST (test code = HYALU) >20 #/LPF 0-5 A UA MUCUS (test code = MUCU) FEW #/LPF FEW UA AMORPHOUS SEDIMENT (test code = AMORU) MODERATE #/LPF NONE Urine Source? Clean CatchDRUGS OF ABUSE SCREEN [id number] 07:05:00* Test Item Value Reference Range Interpretation Comments URN COCAINE (test code = COCAURN) POSITIVE <300 ng/mL A This test provides only a preliminary test result. A morespecific alternate chemical method must be used in order toobtain a confirmed analytical result. Gas chromatography/mass spectrometry (GC/MS) is thepreferred confirmatory method. Other chemical confirmationmethods are available. Clinical consideration and professional judgment should be applied to any drug of abusetest result, particularly when preliminary positive resultsare used.Unconfirmed screening results must not be used fornon-medical purposes (e.g., employment testing, legaltesting). URN CANNABINOIDS (test code = CANNABURN) NEGATIVE <50 ng/mL URN AMPHETAMINE (test code = AMPHETURN) NEGATIVE <1000 ng/mL URN BARBITURATE (test code = BARBITURN) NEGATIVE <200 ng/mL URN BENZODIAZEPINE (test code = BENZOURN) NEGATIVE <200 ng/mL URN OPIATES (test code = OPIATURN) NEGATIVE <300 ng/mL URN PHENCYCLIDINE (PCP) (test code = PHENCURN) NEGATIVE <25 ng/ mL URN METHADONE (test code = METHAURN) NEGATIVE <300 ng/mL Urine Source? Clean CatchURINALYSIS [id number] 06:44:00* Test Item Value Reference Range Interpretation Comments UA COLOR (test code = COLU) Light-Newberry YELLOW UA APPEARANCE (test code = APPU) HAZY CLEAR A UA GLUCOSE DIPSTICK (test code = DGLUU) NEGATIVE mg/dL NEGATIVE UA BILIRUBIN DIPSTICK (test code = BILU) NEGATIVE mg/dL NEGATIVE UA KETONE DIPSTICK (test code = KETU) TRACE mg/dL NEGATIVE A UA SPECIFIC GRAVITY (test code = SGU) 1.025 1.001-1.035 UA BLOOD DIPSTICK (test code = HAKAN) 0.03 mg/dL (Trace) mg/dL NEGATI VE A UA PH DIPSTICK (test code = RAJINDER) 7.0 5.0-8.0 UA PROTEIN DIPSTICK (test code = PROU) 50 (1+) mg/dL NEGATIVE A UA UROBILINIOGEN DIPSTICK (test code = URO) 3.0 (1+) mg/dL NEGATIVE A UA NITRITE DIPSTICK (test code = DEMARCO) NEGATIVE NEGATIVE UA LEUKOCYTE ESTERASE W REFLEX (test code = LEUUR) NEGATIVE Josh/uL NEGATIVE UA WBC (test code = WBCU) 0-5 per HPF 0-5 UA RBC (test code = RBCU) 0-2 #/HPF 0-5 UA EPITHELIAL CELLS (test code = EPIU) FEW per HPF FEW UA BACTERIA (test code = BACU) FEW #/HPF NONE A UA HYALINE CAST (test code = HYALU) >20 #/LPF 0-5 A UA MUCUS (test code = MUCU) FEW #/LPF FEW UA AMORPHOUS SEDIMENT (test code = AMORU) MODERATE #/LPF NONE Urine Source? Clean CatchDRUGS OF ABUSE SCREEN [id number] 06:44:00* Test Item Value Reference Range Interpretation Comments URN COCAINE (test code = COCAURN) <300 ng/mL URN CANNABINOIDS (test code = CANNABURN) <50 ng/mL URN AMPHETAMINE (test code = AMPHETURN) <1000 ng/mL URN BARBITURATE (test code = BARBITURN) <200 ng/mL URN BENZODIAZEPINE (test code = BENZOURN) <200 ng/mL URN OPIATES (test code = OPIATURN) <300 ng/mL URN PHENCYCLIDINE (PCP) (test code = PHENCURN) <25 ng/ mL URN METHADONE (test code = METHAURN) <300 ng/mL Urine Source? Clean Catch- CT ABD PELVIS [id number] 06:42:00 Name: SUZI SCANLON [facility] : 1955 Age/S: 64 / F [address] Unit #: [id number] Loc: [place] [address] Phys: Naseem Childs DO Acct: [id number] Dis Date: Status: ADM IN PHONE #: Exam Date: 05/30/2019627 FAX #: [phone] Reason: GI Bleed EXAMS: CPT CODE: [id number] CT ABD PELVIS W/CONT [address] CT ABDOMEN AND PELVIS ( with intravenous contrast ) Location Code: [address] [place] INDICATIONS: Abdominal pain. GI bleed TECHNIQUE: Volumetric acq uisition of abdomen from the level of the domes of the diaphragm through t he symphysis pubis using 5 mm collimation after the administration of intr avenous and oral contrast. Axial and coronal images were interpreted. Dose lowering technique with automatic exposure control utilized. COMPARISON: None. FINDINGS: Visualized lung bases demonstrate no consolidations or effusions. Liver is diffusely n odular and shrunken, with moderate ascites noted. Spleen is mildly enlarge d. The pancreas, adrenals and both kidneys are unremarkable. There is no e vidence of intrahepatic biliary duct dilatation. No hydronephrosis seen. Visualized loops of small bowel demonstrate diffuse bowel wall thickening. Large bowel loops are within normal limits. There are umbilical hernias containing ascites. Aorta tapers normally wit hout aneurysmal dilatation. Mild aortoiliac atherosclerosis. No lymphadeno froilan CT Pelvis: The urinary bladder is unremarkable. Uterus is sl ightly atrophic. Visualized osseous structures demonstrate n o significant abnormality. IMPRESSION: 1. Cirrhosis with moderate ascites. 2. Diffuse transm ural thickening of small and large bowel loops suggestive of an enteroco litis. 3. Umbilical hernias containing ascites. PAGE 1 Signed Report (CONTINUED) Name: SUZI SCANLON [facility] : 1955 Age/S: 64 / F [address] Unit #: [id number] Loc: [place] [address] Phys: Naseem Childs DO Acct: [id number] Dis Date: Status: ADM IN PHONE #: [phone] Exam Date: 05/30/2019627 FAX #: [phone] Reason: GI Bleed EXAMS: CPT CODE: [id number] CT ABD PELVIS W/CONT 72769 <Continued> at 0642 Reported and signed by: Abram Carr M.D. CC: Naseem Childs DO Technologist:John Ang, RT(R)(CT) CTDI: DLP: Trnscb Date/Time: 05/30/2019 (641) [id number] Orig Print D/T: S: 05/30/2019 (46) PAGE 2 Signed Report URINALYSIS [id number] 06:36:00* Test Item Value Reference Range Interpretation Comments UA COLOR (test code = COLU) Light-Newberry YELLOW UA APPEARANCE (test code = APPU) HAZY CLEAR A UA GLUCOSE DIPSTICK (test code = DGLUU) NEGATIVE mg/dL NEGATIVE UA BILIRUBIN DIPSTICK (test code = BILU) NEGATIVE mg/dL NEGATIVE UA KETONE DIPSTICK (test code = KETU) TRACE mg/dL NEGATIVE A UA SPECIFIC GRAVITY (test code = SGU) 1.025 1.001-1.035 UA BLOOD DIPSTICK (test code = HAKAN) 0.03 mg/dL (Trace) mg/dL NEGATI VE A UA PH DIPSTICK (test code = RAJINDER) 7.0 5.0-8.0 UA PROTEIN DIPSTICK (test code = PROU) 50 (1+) mg/dL NEGATIVE A UA UROBILINIOGEN DIPSTICK (test code = URO) 3.0 (1+) mg/dL NEGATIVE A UA NITRITE DIPSTICK (test code = DEMARCO) NEGATIVE NEGATIVE UA LEUKOCYTE ESTERASE W REFLEX (test code = LEUUR) NEGATIVE Josh/uL NEGATIVE UA WBC (test code = WBCU) per HPF 0-5 UA RBC (test code = RBCU) per HPF 0-5 UA EPITHELIAL CELLS (test code = EPIU) per HPF Few UA BACTERIA (test code = BACU) per HPF NONE Urine Source? Clean CatchDRUGS OF ABUSE SCREEN [id number] 06:36:00* Test Item Value Reference Range Interpretation Comments URN COCAINE (test code = COCAURN) <300 ng/mL URN CANNABINOIDS (test code = CANNABURN) <50 ng/mL URN AMPHETAMINE (test code = AMPHETURN) <1000 ng/mL URN BARBITURATE (test code = BARBITURN) <200 ng/mL URN BENZODIAZEPINE (test code = BENZOURN) <200 ng/mL URN OPIATES (test code = OPIATURN) <300 ng/mL URN PHENCYCLIDINE (PCP) (test code = PHENCURN) <25 ng/ mL URN METHADONE (test code = METHAURN) <300 ng/mL Urine Source? Clean [id number] 06:32:00* Test Item Value Reference Range Interpretation Comments ACETAMINOPHEN (test code = ACET) < 10 mcg/mL 10-30 L A RANGE OF 10-30 mcg/mL IS A THERAPEUTIC RANGE. TOXIC CONCENTRATIONS: >150 mcg/mL AT 4 HOURS AFTER INGESTION >= 50 mcg/mL AT 12 HOURS AFTER INGESTION [id number] 06:32:00* Test Item Value Reference Range Interpretation Comments SALICYLATE (test code = SOCO) < 2.0 mg/dL 2.8-20.0 L [id number] 06:32:00* Test Item Value Reference Range Interpretation Comments ALCOHOL (test code = ALC) < 3 mg/dL 0.0-3.0 N -- INTERPRETIVE DATA NOTE: POSITIVE SCREENING RESULTS SHOULD BE CONSIDERED PRESUMPTIVE.WHEN COLLECTED FOR MEDICAL PURPOSES ONLY. SPECIMEN WILL NOTBE COLLECTED BY CHAIN OF CUSTODY.IF A CONFIRMATION OF POSITIVE RESULTS IS DESIRED, ACONFIRMATION TEST MUST BE REQUESTED BY THE PHYSICIAN AT ANADDITIONAL CHARGE TO THE PATIENT. - CT HEAD/BRAIN W/O [id number] 06:15:00 Name: SUZI SCANLON [facility] : 1955 Age/S: 64 / F [address] [facility] Unit #: [id number] Loc: [place] [address] Phys: Naseem Childs DO Acct: [id number] Dis Date: Status: REG ER PHONE #: [phone] Exam Date: 05/30/2019606 FAX #: [phone] Reason: Altered Mental Status EXAMS: CPT CODE: [id number] CT HEAD/BRAIN W/O CONT 63777 Location Code: B2 HISTORY: Transient alteration of awareness. COMMENT: Axial imaging of the patient's brain was obtained without IV contrast. Soft tissue and bone window images were provided. No priors Dose lowering technique with automatic exposure control utilized. There is no evidence for acute mass effect, midline shift, hemorrhage, or herniation. The ventricles, sulci, and cisterns within normal limits. No intra or extra- axial fluid collections. Minimal atherosclerosis carotid siphons. The bone-windowing examination demonstrates no focal bony abnormalities. No abnormality within the sinuses. IMPRESSION: No acute intracranial findings at 0615 Reported and signed by: Abram Carr M.D. CC: Naseem Childs DO Technologist:John Ang RT(R)(CT) CTDI: DLP: Trnscb Date/Time: 05/30/2019 (614) [id number] Orig Print D/T: S: 05/30/2019 (617) PAGE 1 Signed Report LACTIC [id number] 06:03:00* Test Item Value Reference Range Interpretation Comments LACTIC ACID (test code = LACT) 7.6 mmol/L 0.4-1.9 HH Results called to [id number] by PIPPA 05/30/19 0603Critical results verified and read back by Nurse? Y BASIC METABOLIC [id number] 06:02:00* Test Item Value Reference Range Interpretation Comments SODIUM (test code = NA) 145 mmol/L 136-145 N POTASSIUM (test code = K) 3.4 mmol/L 3.5-5.1 L CHLORIDE (test code = CL) 112.0 mmol/L 98-107 H CARBON DIOXIDE (test code = CO2) 22.0 mmol/L 21-32 N ANION GAP (test code = GAP) 14.4 10-20 N GLUCOSE (test code = GLU) 149 mg/dL 74-106 H BLOOD UREA NITROGEN (test code = BUN) 19 mg/dL 7-18 H GLOMERULAR FILTRATION RATE (test code = GFR) > 60 mL/min >=60 Estimated GFR by using Modified MDRD formula.Chronic kidney disease is defined as either kidney damageor GFR <60 mL/min/1.73 m2 for >3 months. CREATININE (test code = CREAT) 0.70 mg/dL 0.55-1.02 N Note change in reference range due to change in reagent. BUN/CREATININE RATIO (test code = BUN/CREA) 27.1 10-20 H CALCIUM (test code = CA) 7.4 mg/dL 8.5-10.1 L HEPATIC FUNCTION [id number] 06:02:00* Test Item Value Reference Range Interpretation Comments TOTAL PROTEIN (test code = PROT) 4.9 gram/dL 6.4-8.2 L ALBUMIN (test code = ALB) 1.3 g/dL 3.4-5.0 L GLOBULIN (test code = GLOB) 3.6 gram/dL 2.7-4.2 N ALBUMIN/GLOBULIN RATIO (test code = A/G) 0.4 0.75-1.50 L BILIRUBIN TOTAL (test code = BILT) 2.00 mg/dL 0.0-1.0 H BILIRUBIN DIRECT (test code = BILD) 0.91 mg/dL 0.0-0.20 H SGOT/AST (test code = AST) 38 IUnit/L 15-37 H SGPT/ALT (test code = ALT) 24 IUnit/L 12-78 N ALKALINE PHOSPHATASE TOTAL (test code = ALKP) 118 IUnit/L 45-117 H Note change in reference range due to change in reagent. [id number] 06:02:00* Test Item Value Reference Range Interpretation Comments LIPASE (test code = LIP) 26 U/L 73.0-393.0 L [id number] 06:02:00* Test Item Value Reference Range Interpretation Comments TROPONIN-I (test code = TROPI) <0.015 ng/mL 0-0.045 N [id number] 06:02:00* Test Item Value Reference Range Interpretation Comments ACETAMINOPHEN (test code = ACET) < 10 mcg/mL 10-30 L A RANGE OF 10-30 mcg/mL IS A THERAPEUTIC RANGE. TOXIC CONCENTRATIONS: >150 mcg/mL AT 4 HOURS AFTER INGESTION >= 50 mcg/mL AT 12 HOURS AFTER INGESTION [id number] 06:02:00* Test Item Value Reference Range Interpretation Comments SALICYLATE (test code = SOCO) mg/dL 2.8-20.0 [id number] 06:02:00* Test Item Value Reference Range Interpretation Comments ALCOHOL (test code = ALC) < 3 mg/dL 0.0-3.0 N -- INTERPRETIVE DATA NOTE: POSITIVE SCREENING RESULTS SHOULD BE CONSIDERED PRESUMPTIVE.WHEN COLLECTED FOR MEDICAL PURPOSES ONLY. SPECIMEN WILL NOTBE COLLECTED BY CHAIN OF CUSTODY.IF A CONFIRMATION OF POSITIVE RESULTS IS DESIRED, ACONFIRMATION TEST MUST BE REQUESTED BY THE PHYSICIAN AT ANADDITIONAL CHARGE TO THE PATIENT. [id number] 05:57:00* Test Item Value Reference Range Interpretation Comments AMMONIA (test code = AMM) 137 umol/L 11-32 H BASIC METABOLIC [id number] 05:52:00* Test Item Value Reference Range Interpretation Comments SODIUM (test code = NA) 145 mmol/L 136-145 N POTASSIUM (test code = K) 3.4 mmol/L 3.5-5.1 L CHLORIDE (test code = CL) 112.0 mmol/L 98-107 H CARBON DIOXIDE (test code = CO2) mmol/L 21-32 ANION GAP (test code = GAP) 10-20 GLUCOSE (test code = GLU) mg/dL 74-106 BLOOD UREA NITROGEN (test code = BUN) mg/dL 7-18 GLOMERULAR FILTRATION RATE (test code = GFR) mL/min >=60 CREATININE (test code = CREAT) mg/dL 0.55-1.02 BUN/CREATININE RATIO (test code = BUN/CREA) 10-20 CALCIUM (test code = CA) mg/dL 8.5-10.1 HEPATIC FUNCTION [id number] 05:52:00* Test Item Value Reference Range Interpretation Comments TOTAL PROTEIN (test code = PROT) gram/dL 6.4-8.2 ALBUMIN (test code = ALB) g/dL 3.4-5.0 GLOBULIN (test code = GLOB) gram/dL 2.7-4.2 ALBUMIN/GLOBULIN RATIO (test code = A/G) 0.75-1.50 BILIRUBIN TOTAL (test code = BILT) mg/dL 0.0-1.0 BILIRUBIN DIRECT (test code = BILD) mg/dL 0.0-0.20 SGOT/AST (test code = AST) IUnit/L 15-37 SGPT/ALT (test code = ALT) IUnit/L 12-78 ALKALINE PHOSPHATASE TOTAL (test code = ALKP) IUnit/L 45-117 [id number] 05:52:00* Test Item Value Reference Range Interpretation Comments LIPASE (test code = LIP) U/L 73.0-393.0 [id number] 05:52:00* Test Item Value Reference Range Interpretation Comments TROPONIN-I (test code = TROPI) ng/mL 0-0.045 [id number] 05:51:00* Test Item Value Reference Range Interpretation Comments GLUBED (test code = GLUBED) 139 mg/dL 74-106 H Performed by certified die cutting machine operator at [facility] PROTHROMBIN [id number] 05:41:00* Test Item Value Reference Range Interpretation Comments PROTHROMBIN TIME PATIENT (test code = PTP) 20.1 seconds 9.0-14.0 H INTERNATIONAL NORMAL RATIO (test code = INR) 1.7 0.8-1.2 H The therapeutic range for oral anticoagulant therapy formost indications is an international normalized ratio (INR)of between 2.0 and 3.0. The recommended therapeutic INRrange for various clinical situations is listed below: Clinical Situation INR range Pulmonary e mbolism treatment (2.0-3.0)Venous thrombosis treatmentVenous thrombosis prophylaxis (high risk surgery)Prevention of systemic embolism from: Acute myocardial infarction Valvular heart disease Atrial fibrillation Mechanical prosthetic heart valves (2.5-3.5) IS PATIENT ON ANTICOAGULANTS? NTHROMBOPLASTIN TIME [id number] 05:41:00* Test Item Value Reference Range Interpretation Comments THROMBOPLASTIN TIME PARTIAL (test code = PTT) 32.4 seconds 25.0-36. 5 N IS PATIENT ON ANTICOAGULANTS? NCBC W/O [id number] 05:37:00* Test Item Value Reference Range Interpretation Comments WHITE BLOOD CELL (test code = WBC) 12.8 K/mm3 4.5-12.5 H RED BLOOD CELL (test code = RBC) 2.45 mill/mm3 3.7-5.2 L HEMOGLOBIN (test code = HGB) 7.9 gram/dL 11.5-15.5 L HEMATOCRIT (test code = HCT) 24.7 % 36.0-46.0 L MEAN CELL VOLUME (test code = MCV) 100.8 fL 80-98 H MEAN CELL HGB (test code = MCH) 32.2 picogram 27.0-33.0 N MEAN CELL HGB CONCETRATION (test code = MCHC) 32.0 gram/dL 33.0-36. 0 L RED CELL DISTRIBUTION WIDTH (test code = RDW) 15.7 % 11.6-16. 2 N PLATELET COUNT (test code = PLT) 83 K/mm3 150-450 L MEAN PLATELET VOLUME (test code = MPV) 13.2 fL 6.7-11.0 H - XR CHEST 1 [id number] 05:34:00 FAX: Naseem Childs DO [place]: B St: REG Name: SUZI ENAMORADO [facility] : [birth year] Age/S: 64/F [address] [facility] Unit #: [id number] Loc: [place] [address] Phys: Naseem Childs DO Acct: [id number] Dis Date: Status: REG ER PHONE #: [phone] Exam Date: 05/30/2019520 FAX #: [phone] Reason: Abdominal Pain EXAMS: CPT CODE: [id number] XR CHEST 1 V 29072 AFTER HOURS SERVICE ON: 05/30/2019 5:34 AM AP Portable Chest Location Code M12 HISTORY: Abdominal Pain FINDINGS: There are no infiltrates. There are no pleural effusions. There is no pneumothorax. C ardiac silhouette and mediastinum appear within normal limits. IMPRESSION: No active pulmonary findings. at 0534 Reported and signed by: Alexis Warner M.D. CC: Naseem Childs DO Technologist: Kiran Cooper RT(R); KACIE HOBBS RT(R) Trnscrd Date/Time/By: 05/30/2019 (0534) : By: SinaiMA50 [facility] Print D/T: S: 05/30/2019 (0537) PAGE 1 Signed Report VENOUS BLOOD GAS 2019-05-30 05:18:00* Test Item Value Reference Range Interpretation Comments VENOUS BLOOD GAS PH (test code = PHV) 7.36 7.30-7.40 N VENOUS BLOOD GAS PCO2 (test code = PCO2V) 35.2 mm Hg 39.0-51.0 L VENOUS BLOOD GAS PO2 (test code = PO2V) < 40.7 mm Hg 30.0-50.0 N VBG HCO3 (test code = HCO3V) 19.3 mmol/L 17.0-30.0 N VBG BASE EXCESS (test code = JESUS) -5.6 mmol/L -5.0-5.0 LL Results called to and read back by Neema Waller 05:17 - 05/30/2019; by Sandra ELIZABETHBOWERS CRT VENOUS BLOOD GAS O2 SAT. (test code = O2SATV) 58 % 94-98 LL VENOUS BLOOD GAS FIO2 (test code = FIO2V) 44.0 PT. HGB (test code = PHGBVBG) 9.1 gram/dL 11.5-15.5 L VENOUS BLOOD GAS SITE (test code = SITEV) IVC HEMATOCRIT (test code = HCT/VBG) 27 % 42-52 L HGB O2 SAT (test code = HBOSAT) 56.7 % 94.00-98.00 LL CARBOXYHEMOGLOBIN (test code = HOHGBT) 1.5 %totalHg 0.5-1.5 N METHEMOGLOBIN (test code = METHGB) 0.0 % 0.0-1.50 N ABD PARACENTESIS W/[id number] 16:30:18IMPRESSION: Successful ultrasound guided paracentesis. Dictated By: Denisse Montes De Oca DO, 04/02/2019 12:06 PM I have reviewed the study and agree with the findings in this report. Signed By: Raymond Diggs DO, 04/03/2019 4:30 PM Interface, Rad/Mammog In - 04/03/2019 4:35 PM CSTProcedure: Ultrasound Guided Paracentesis dip unit operator: Dr. Denisse Montes De Oca DOAssistants: NoneStaff: Dr. Raymond Diggs DOPreoperative diagnosis: Abdominal ascites Post operative diagnosis: Abdominal ascites Conscious Sedation: None. [facility] Fluoro time: None. Contrast used: None. EBL: Less than 5cc Specimen Obtained: 2.3 L of clear yellow ascitic fluid Blood administered: None. Implants: None. Condition at procedure completion:GoodDisposition:Discharged homeCPT procedure code: 99443 DISCUSSION: A timeout was performed. The patients left lower casimiro drant ofthe abdomen was prepped and draped in the usual sterile fashion. 1%lidoc shari was infiltrated into the subcutaneous tissues for localanesthesia. Under ul trasound guidance, a Yueh needle was advanced intothe ascitic fluid collection. The inner metallic stylet was removed andthe Yueh drain was attached to a Vacuta iner bottle. 2.3 L of fluid were removed. There were no complications. Dr. Rogerio Diggs DO was present throughout the procedure. IMPRESSIONIMPRESSION:Successf ul ultrasound guided paracentesis.Dictated By: Denisse Montes De Oca DO, 04/02/2019 12:06 PMI have reviewed the study and agree with the findings in this report.Signed B y: Raymond Diggs DO, 04/03/2019 4:30 PMHarris HealthPOCT GLUCOSE POC docked [id number] 10:46:00* Test Item Value Reference Range Interpretation Comments Glucose POC (test code = 49638638) 167 mg/dL 74-106 H Lab Interpretation (test code = 51755-4) Abnormal [facility] HospitalFluid Culture and Gram [id number] 14:57:00* Test Item Value Reference Range Interpretation Comments Body Fluid Culture (test code = 611-4) No growth 3 days Gram Stain (test code = 664-3) No organisms seen [facility] HospitalU/S PELVIS LTD [id number] 14:54:02IMPRESSION: Fluid containing left inguinal hernia with the presence of fat onValsalva maneuver. No evidence of bowel containing hernia. Signed By: Farhad Hughes, 02/26/2019 2:54 PM Interface, Rad/Mammog In - 02/26/2019 2:59 PM CSTUltrasound pelvis: Transabdominal CPT code: 18356Hettgmb: left groin swelling evaluation for hernia, history of cirrhosisComparison: CT abdomen/pelvis 02/23/2019. CT abd omen/pelvis 11/06/2018Technique: Images of the left inguinal region were obtaine d withgrayscale and color Doppler images.Findings:A fluid collection in the left inguinal region has a neck of 1.1 cm andextends for approximately 8.7 cm. This corresponds to fluid in the leftinguinal canal on CT. There is no increased vasc ularity on color Dopplerinterrogation. No evidence of bowel. With Valsalva, ther e is increase inthe amount of fat.No evidence of lymphadenopathy.IMPRESSIONIMPRE SSION:Fluid containing left inguinal hernia with the presence of fat onValsalva maneuver. No evidence of bowel containing hernia.Signed By: Farhad Hughes, 02/26/2019 2:54 PMOakland HealthDUPLEX DOPPLER ABD/PEL VASCULAR STUDY, COMPLETE 2019-02-26 14:54:02IMPRESSION: Fluid containing left inguinal hernia with the presence of fat onValsalva maneuver. No evidence of bowel containing hernia. Signed By: Farhad Hughes, 02/26/2019 2:54 PM Interface, Rad/Mammog In - 02/26/2019 2:59 PM CSTUltrasound pelvis: Transabdominal CPT code: 60079Jxfawhk: left groin swelling evaluation for hernia, history of cirrhosisComparison: CT abdomen/pelvis 02/23/2019. CT abdomen/pelvis 11/06/2018Technique: Images of the left inguinal region were obtained withgrayscale and color Doppler images.Findings:A fluid collection in the left inguinal region has a neck of 1.1 cm andextends for approximately 8.7 cm. This corresponds to fluid in the leftinguinal canal on CT. There is no increased vascularity on color Dopplerinterrogation. No evidence of bowel. With Valsalva, there is increase inthe amount of fat.No evidence of lymphadenopathy.IMPRESSIONIMPRESSION:Fluid containing left inguinal hernia with the presence of fat onValsalva maneuver. No evidence of bowel containing hernia.Signed By: Farhad Hughes, 02/26/2019 2:54 PMHarQuincy Valley Medical CenterCT ABDOMEN AND PELVIS [id number] 10:15:51IMPRESSION: 1. Cirrhosis, splenomegaly, and portal hypertension with varices.Moderate abdominopelvic ascites has increased in size. Low attenuatinghepatic lesions are stable.2. Gallstones and sludge without evidence of cholecystitis.3. Resolved thrombus in the superior mesenteric vein.4. Severe atherosclerotic disease of the abdominal aorta and majorbranches. No aneurysmal dilatation of the abdominal aorta.5. Gaseous distention of the transverse colon with mild to moderateburden of stool in the right colon. No evidence of bowel obstruction. Dictated By: Luke Weber MD, 02/23/2019 11:50 PM I have reviewed the study and agree with the findings in this report. Signed By: Farhad Hughes, 02/24/2019 10:15 AM Interface, Rad/Mammog In - 02/24/2019 10:20 AM CSTEXAM: CT Abdomen and Pelvis WITH contrast INDICATION: Abd distension COMPARISON: Abdomen pelvis CT on 11/06/2018 and 03/24/2018.Additional history: 64y.o.?female?with PMH of HCV cirrh osis,??DM, ?HTN,hypothyroidism, and remote?IVDU who presents with worsening abdo minaldistention and pain.TECHNIQUE: Abdomen and pelvis were scanned utilizing a multidetectorhelical scanner from the lung base to the pubic symphysis afteradmi nistration of IV contrast. Coronal and sagittal reformations wereobtained. Routi ne protocol was performed. Scan was performed when duringportal venous phase. IV CONTRAST: 100 mL of Omnipaque 300 ORAL CONTRAST: Water C OMPLICATIONS: NoneRADIATION DOSE: Total DLP: 441 mGy*cm Estimated effect bernice dose: (DLP x 0.015 x size factor) mSv CTDIvol has been reviewed. It is b elow the limits set by theRadiation Protocol Committee (RPC).FINDINGS:LINES and TUBES: None.LOWER THORAX: Bilateral lower lobe dependent atelectasis. Stablebil ateral trace pleural effusions. No pericardial effusion. Mildatherosclerotic shani cifications of the coronary arteries. Paraesophagealvarices are stable.HEPATOBIL IARY: Cirrhosis. Hypoattenuating lesions in the hepatic segmentIVa (series 2 americo ge 75) and segment V (series 2 image 43), measure 0.9and 0.6 cm, respectively an d are too small to characterize. These aregrossly stable. There are no enhancing lesions.No biliary ductal dilatation.GALLBLADDER: There are layering gallstones /sludge in the gallbladder Nowall thickening. SPLEEN: Measures 12.7 cm. No foca l lesions.PANCREAS: No focal masses or ductal dilatation. ADRENALS: No adrenal nodulesKIDNEYS/URETERS: Kidneys enhance symmetrically. No hydronephrosis. Nomas s. No stones.GI TRACT: Stomach: Normal.Small bowel: Normal in diameter with nor mal wall thickness.Large bowel: Mild gaseous distention without mural thickening . Mild tomoderate burden of stool in the right colon. Appendix: Not visualized.P ELVIC ORGANS/BLADDER: The bladder appears unremarkable. Atrophicuterus. No adnex al mass.LYMPH NODES: No lymphadenopathy.VESSELS: Stable gastric varices. Resolu tion of the SMV thrombus. Stablehigh-grade stenosis of the proximal superior mes enteric artery andmoderate to high-grade stenoses of the proximal renal arteries . Noaneurysmal dilatation of the abdominal aorta. Stable severeatherosclerotic d isease in the aorta and major arterial branches. Noaneurysmal dilatation of the abdominal aorta.PERITONEUM / RETROPERITONEUM: There is significant amount of asc ites,mildly increased since prior study. No loculated fluid collections.BONES: Diffuse demineralization. Mild degenerative changes of thelumbar spine.SOFT TISS UES: There is diffuse anasarca. There is a fat and fluidcontaining para-umbili shani hernia. Left fluid containing inguinalhernia.IMPRESSIONIMPRESSION: 1. Cir rhosis, splenomegaly, and portal hypertension with varices.Moderate abdominopelv ic ascites has increased in size. Low attenuatinghepatic lesions are stable.2. Gallstones and sludge without evidence of cholecystitis.3. Resolved thrombus in the superior mesenteric vein.4. Severe atherosclerotic disease of the abdominal aorta and majorbranches. No aneurysmal dilatation of the abdominal aorta.5. G aseous distention of the transverse colon with mild to moderateburden of stool i n the right colon. No evidence of bowel obstruction.Dictated By: Luke martinez MD, 02/23/2019 11:50 PMI have reviewed the study and agree with the finding s in this report.Signed By: Farhad Hughes, 02/24/2019 10:15 [facility] Comprehensive Metabolic [id number] 06:06:00* Test Item Value Reference Range Interpretation Comments Sodium (test code = 2951-2) 139 mmol/L 136-145 Potassium (test code = 2823-3) 3.1 mmol/L 3.5-5.1 L Chloride (test code = 2075-0) 104 mmol/L 98-107 CO2 (test code = 95809593) 30 mmol/L 21-31 Glucose (test code = 66687074) 208 mg/dL 70-110 H Calcium (test code = 13473026) 7.4 mg/dL 8.6-10.3 L Urea Nitrogen (test code = 17828326) 9.0 mg/dL 7-25 Creatinine (test code = 88805600) 0.6 mg/dL 0.6-1.2 Alkaline Phosphatase (test code = 66403956) 108 U/L 34-104 H ALT (test code = 25062877) 16 U/L 7-52 AST (test code = 63640038) 30 U/L 13-39 Total Protein (test code = 2885-2) 5.6 g/dL 6-8.3 L GFR, Estimated (test code = 07323305) >90 >=90 mL/min/1.73 m2 Albumin (test code = 88793-8) 2.0 g/dL 3.7-5.3 L Anion Gap (test code = 97439106) 5 mmol/L 5-16 Lab Interpretation (test code = 68830-6) Abnormal [facility] (without differential)2019-02-24 05:37:00* Test Item Value Reference Range Interpretation Comments WBC (test code = 6690-2) 4.6 K/uL 4.5-11 RBC (test code = 789-8) 3.28 4.20- 5.40 M/uL L Hemoglobin (test code = 718-7) 10.9 g/dL 12-16 L Hematocrit (test code = 4544-3) 33.3 % 37-47 L MCV (test code = 787-2) 101.5 fL 82-92 H MCH (test code = 785-6) 33.2 pg 27-32 H MCHC (test code = 786-4) 32.7 g/dL 32-36 RDW (test code = 12615-3) 53.3 fL 36.4-46.3 H Platelet (test code = 777-3) 79 K/uL 150-400 L Mean Platelet Volume (test code = 50942-1) 12.8 fL 9.4-12.4 H Percent NRBC (test code = 33706324) 0.0 % Lab Interpretation (test code = 55928-9) Abnormal [facility] HospitalLactic [id number] 15:51:00* Test Item Value Reference Range Interpretation Comments Lactic Acid (test code = 52350577) 1.7 mmol/L 0.5-2.2 Lab Interpretation (test code = 05138-4) Normal [facility] HospitalCB/[id number] 08:13:00* Test Item Value Reference Range Interpretation Comments WBC (test code = 6690-2) 4.5 K/uL 4.5-11 RBC (test code = 789-8) 3.48 4.20- 5.40 M/uL L Hemoglobin (test code = 718-7) 11.3 g/dL 12-16 L Hematocrit (test code = 4544-3) 35.1 % 37-47 L MCV (test code = 787-2) 100.9 fL 82-92 H MCH (test code = 785-6) 32.5 pg 27-32 H MCHC (test code = 786-4) 32.2 g/dL 32-36 RDW (test code = 22306-6) 52.4 fL 36.4-46.3 H Platelet (test code = 777-3) 84 K/uL 150-400 L Mean Platelet Volume (test code = 56703-6) 12.5 fL 9.4-12.4 H Percent NRBC (test code = 73747280) 0.0 % Neutrophil (test code = 770-8) 72.7 % 34-70 H Lymphs (test code = 736-9) 15.7 % 20-50 L Monocytes (test code = 5905-5) 9.5 % 5-12 Eos (test code = 713-8) 1.3 % 0.7-5 Basos (test code = 706-2) 0.4 % 0.1-1.2 Immature Granulocytes (test code = 27443738) 0.4 % 0-0.5 Neutrophils (Absolute) (test code = 05305375) 3.27 K/uL 1.56-6.1 3 Lymphs (Absolute) (test code = 26910932) 0.71 K/uL 1.18-3.74 L Monocytes(Absolute) (test code = 21166128) 0.43 K/uL 0.24-0.36 H Eos (Absolute) (test code = 11819427) 0.06 K/uL 0.04-0.36 Baso (Absolute) (test code = 33189999) 0.02 K/uL 0.01-0.08 Immature Grans (Abs) (test code = 83120967) 0.02 K/uL 0-0.03 Absolute NRBC (test code = 48308914) 0.00 K/uL Lab Interpretation (test code = 37728-7) Abnormal [place] [id number] 08:00:00* Test Item Value Reference Range Interpretation Comments Magnesium (test code = 52903290) 1.6 mg/dL 1.9-2.7 L Lab Interpretation (test code = 30340-4) Abnormal [place] HealthPT/[id number] 07:41:00* Test Item Value Reference Range Interpretation Comments PT (test code = 5902-2) 19.8 11.8- 15.0 Seconds H INR (test code = 83445923) 1.7 Refer to INR therapeutic ra nges 2.0 - 3.0 for moderate intensity anticoagulation2.5 - 3.5 for high intensity anticoagulation Lab Interpretation (test code = 78407-5) Abnormal [facility] [id number] 07:41:00* Test Item Value Reference Range Interpretation Comments PTT (test code = 00557292) 41.1 23.6- 36.4 Seconds H The recommended therapuetic range is an APTT 61-103 seconds which corresponds to 0.3-0.7 anti Xa u/ml. Lab Interpretation (test code = 92212-9) Abnormal [place] [address] LEAD [id number] 06:37:5612 LEAD EKG FOR [facility] Test Date: [id number] Name: SUZI SCANLON Department: [id number] ID: [id number] Room: 6NZ77Ytefwa: Town Planner: [id number]: 1955 Requested By: GRISEL Brown Number: [id number] Reading MD: Pasha Grover M.D. MeasurementsIntervals [place] Rate: 87 P: VT: 0 QRS: 9QRSD: 78 T: 16QT: 420 QTc: 507 Interpretive StatementsLIKELY ECTOPIC ATRIAL RHYTHMElectronically Signed On 02-23-2019 6:37:53 ADVERTISING TEACHER by Pasha Grover M.D.[facility], CELL [id number] 04:46:00* Test Item Value Reference Range Interpretation Comments Neutrophil (test code = 64854435) 10 % Lymphocyte (test code = 30195903) 15 % Monocyte (test code = 15715642) 15 % Macrophage (test code = 47422011) 53 % Mesothelial, Cell (test code = 34061350) 6 % Plasma Cell (test code = 90755578) 1 % Cells Counted (test code = 84519694) 100 [facility], Cbdase5898-40-69 04:41:00* Test Item Value Reference Range Interpretation Comments Neutrophil (test code = 49983134) 83.0 % 34-70 H Lymphs (test code = 91608867) 8.0 % 20-50 L Monocytes (test code = 75444033) 7.0 % 5-12 Eos (test code = 71923055) 0.0 % 0.7-5 L Basos (test code = 35192420) 1.0 % 0.1-1.2 Metamyel (test code = 04105860) 1.0 % <=0.0 H Neutrophils (Absolute) (test code = 19373907) 4.32 K/uL 1.56-6.1 3 Lymphs (Absolute) (test code = 60897838) 0.42 K/uL 1.18-3.74 L Monocytes(Absolute) (test code = 39032957) 0.36 K/uL 0.24-0.36 Eos (Absolute) (test code = 49863336) 0.00 K/uL 0.04-0.36 L Baso (Absolute) (test code = 54381038) 0.05 K/uL 0.01-0.08 Ovalocyte (test code = 19553739) 2+ None seen A Schistocyte (test code = 21324809) 1+ None seen A Tear Drop Cell (test code = 76325026) 2+ None seen A Cells Counted (test code = 04841933) Lab Interpretation (test code = 17744-1) Abnormal [facility] HealthCell Count, [id number] 02:51:00* Test Item Value Reference Range Interpretation Comments Volume (test code = 52224371) 3 mL Appearance (test code = 30026754) Clear Clear Calculated RBC-Body Fluid (test code = 76892797) 2325 /uL None seen WBC Body Fluid (test code = 59433591) 100 /uL Clots? (test code = 43932193) No [facility] HealthAlbumin, [id number] 01:38:00* Test Item Value Reference Range Interpretation Comments Albumin, Fld (test code = 30950438) <1.5 g/dL Reference interval study is not possible due to unavailable normal samples and the limited availability of published data. The reference range has not been established for body fluids. The test result should be integrated into the clinical context for interpretation. HUA (test code = HUA) Disclaimer:The performance c haracteristic of quantitative testing of body fluid using Adam OL8750 has been reviewed and the performance of the method is considered acceptable for patient testing. This test was developed and its performance characteristic determined by [facility] Biochemistry laboratory. It has not been cleared or approved by the [place].S. Food and Drug Administration. The FDA has determined that such clearance of approval is not necessary. This test is used for clinical purposes. It should not be regarded as investigational or research. [facility] HospitalGlucose, [id number] 01:38:00* Test Item Value Reference Range Interpretation Comments Glucose, Fld (test code = 37130498) 267 mg/dL Reference interval study is not possible due to unavailable normal samples and the limited availability of published data. The reference range has not been established for body fluids. The test result should be integrated into the clinical context for interpretation. HUA (test code = HUA) Disclaimer:The performance c haracteristic of quantitative testing of body fluid using Adam [id number] has been reviewed and the performance of the method is considered acceptable for patient testing. This test was developed and its performance characteristic determined by [facility] Biochemistry laboratory. It has not been cleared or approved by the I.S. Food and Drug Administration. The FDA has determined that such clearance of approval is not necessary. This test is used for clinical purposes. It should not be regarded as investigational or research. [facility] HospitalLDH, [id number] 01:38:00* Test Item Value Reference Range Interpretation Comments LDH, Fld (test code = 72248345) 38 U/L Reference interval study is not possible due to unavailable normal samples and the limited availability of published data. The reference range has not been established for body fluids. The test result should be integrated into the clinical context for interpretation. HUA (test code = HUA) Disclaimer:The performance c haracteristic of quantitative testing of body fluid using Adam CS4050 has been reviewed and the performance of the method is considered acceptable for patient testing. This test was developed and its performance characteristic determined by [facility] Biochemistry laboratory. It has not been cleared or approved by the [place].S. Food and Drug Administration. The FDA has determined that such clearance of approval is not necessary. This test is used for clinical purposes. It should not be regarded as investigational or research. [facility] HospitalT Protein, [id number] 01:38:00* Test Item Value Reference Range Interpretation Comments Protein, Fluid (test code = 2881-1) <3.0 g/dL Reference interval study is not possible due to unavailable normal samples and the limited availability of published data. The reference range has not been established for body fluids. The test result should be integrated into the clinical context for interpretation. [facility] Wfxcagi3823-96-52 00:09:00* Test Item Value Reference Range Interpretation Comments Bilirubin, Total (test code = 2885-2) 2.1 mg/dL 0.2-1.2 H Alkaline Phosphatase (test code = 02909681) 160 U/L 34-104 H AST (test code = 88110184) 41 U/L 13-39 H Direct Bilirubin (test code = 1968-7) 0.7 mg/dL 0-0.2 H ALT (test code = 75916659) 23 U/L 7-52 Albumin (test code = 41921-0) 2.3 g/dL 3.7-5.3 L Lab Interpretation (test code = 42565-7) Abnormal [facility] HospitalJmejwwJxklyxh2106-12-42 00:06:00* Test Item Value Reference Range Interpretation Comments Ammonia (test code = 37002760) 82.0 umol/L 16-53 H Lab Interpretation (test code = 05982-6) Abnormal [facility] TROPONIN I POC docked [id number] 23:38:00* Test Item Value Reference Range Interpretation Comments Troponin POC (test code = 92653142) 0.00 ng/mL 0-0.08 Physician Notified Lab Interpretation (test code = 69293-3) Normal [facility] VBG POC docked [id number] 23:31:00* Test Item Value Reference Range Interpretation Comments pH, Tip POC (test code = 73984631) 7.46 7.33-7.43 H HCO3, Tip POC (test code = 73804806) 26 mmol/L 22-26 TCO2 POC (test code = 89013673) 27 mmol/L 21-32 PO2, Venous POC (BKR) (test code = 10209635) 28 50- 75 mm Hg L pCO2,Tip POC (test code = 72837826) 36.9 38- 50 mmHg L Base Excess Tip POC (test code = 22064391) 2 mmol/L Sample Type (test code = 61764939) IVEN --- Lactic Acid POC (test code = 28352947) 2.93 mmol/L 0.4-2 H % Sat, Tip POC (test code = 98175488) 57 % Lab Interpretation (test code = 96113-8) Abnormal [facility] BMP POC docked [id number] 22:51:00* Test Item Value Reference Range Interpretation Comments Sodium POC (test code = 67861384) 139 mmol/L 136-145 Potassium POC (test code = 75874010) 3.5 mmol/L 3.5-5.1 Chloride POC (test code = 74597926) 99 mmol/L 98-107 TCO2 POC (test code = 66745852) 25 mmol/L 21-32 Urea Nitrogen POC (test code = 65840893) 9 mg/dL 7-18 Creatinine POC (test code = 27782266) 0.5 mg/dL 0.6-1.3 L Glucose POC (test code = 77697439) 307 mg/dL 74-106 H Ionized Calcium POC (test code = 45543715) 1.10 mmol/L 1.15-1.29 L GFR, Estimated (test code = 30649143) >90 >=90 mL/min/1.73 m2 Hemoglobin POC (test code = 80479212) 13.3 g/dL 12-16 Physician Notified Hematocrit POC (test code = 53389164) 39.0 % 37-47 Lab Interpretation (test code = 50577-6) [id number] 13:40:00* Test Item Value Reference Range Interpretation Comments Hemoglobin A1c (test code = 4548-4) 6.7 % 4.3-6.1 H Estimated Average Glucose (test code = 43392251) 146 mg/dL 70-11 0 H Lab Interpretation (test code = 91007-0) [facility]normal [id number] 15:16:18Bebeto Brown MD 01/09/2019 4:08 PMDiabetic Foot Exam was performed at 01/09/2019 3:41 PM. Right foot sensation is normal, right foot pulses are normal, right foot appearance is abnormal (thickended toe nails). Left foot sensation is normal, left foot pulses are normal, left foot appearance is abnormal (thickended toe nails). [facility]
[2019-12-31 15:24] LABS: INR 1.36; PROTHROMBIN TIME 17.5 seconds (11.9-14.5)
[2019-12-31 15:31] LABS: ALANINE AMINOTRANSFERASE 17 IU/L (0-55); ALBUMIN 2.3 g/dL (3.5-5.0); ALBUMIN/GLOBULIN RATIO 0.5 (0.8-2.0); ALKALINE PHOSPHATASE 117 IU/L (40-150); ANION GAP 10.4 mmol/L (8-16); BLOOD UREA NITROGEN 8 mg/dL (7-26); BUN/CREATININE RATIO 11 (6-25); CALCIUM 7.7 mg/dL (8.4-10.2); CARBON DIOXIDE 27 mmol/L (22-29); CHLORIDE 100 mmol/L (98-107); EST GLOMERULAR FILTRATION RATE > 60 ML/MIN (60-); GLUCOSE 159 mg/dL (74-118); SODIUM 135 mmol/L (136-145)
[2019-12-31 15:34] LABS: POTASSIUM 2.4 mmol/L (3.5-5.1)
[2019-12-31] MEDS ORDERED: POTASSIUM CHLORIDE 20MEQ/100ML 100 ML IV ONE (15:45)
[2019-12-31] MEDS ORDERED: POTASSIUM CHLORIDE 20 MEQ TAB CR PO NR (16:00)
[2019-12-31] MEDS ORDERED: SODIUM CHLORIDE 0.9% 250ML 250 ML ONE (16:03)
[2019-12-31] MEDS: POTASSIUM CITRATE ER 10 MEQ TAB PO ONE ×2 (16:07→16:08)
[2019-12-31] MEDS ORDERED: FENTANYL CITRATE/PF 100MCG/2 ML INJ IV PRN (16:15)
[2019-12-31 17:52] VITALS: BP 108/54
== END 2019-12-31 19:00 | disposition home or self-care (01) ==
LOC: ER 14:57
DX: L03.115 Cellulitis of right lower limb (principal); E87.6 Hypokalemia; M79.661 Pain in right lower leg; E11.65 Type 2 diabetes mellitus with hyperglycemia; K76.9 Liver disease, unspecified
CPT/HCPCS: 36415; 80053; 85610; 93970; 99284; J3010; J3480; J7050

== ENCOUNTER → 2019-12-31 | Outpatient (CLI) | payer MEDICARE ==
[2019-12-31 13:29] LABS: BASOPHILS % 0.2 % (0.0-1.0); EOSINOPHILS # (AUTO) 0.1 (0.0-0.4); EOSINOPHILS % 0.7 % (0.0-6.0); HEMATOCRIT 32.9 % (34.2-44.1); HEMOGLOBIN 11.1 g/dL (12.0-16.0); LYMPHOCYTES # (AUTO) 0.6 (1.0-3.2); LYMPHOCYTES % 6.5 % (18.0-39.1); MEAN CORPUSCULAR HEMOGLOBIN 32.7 pg (28-32); MEAN CORPUSCULAR HGB CONC 33.7 g/dL (31-35); MEAN CORPUSCULAR VOLUME 97.1 fL (81-99); MONOCYTES # (AUTO) 0.5 (0.2-0.8); MONOCYTES % 5.2 % (4.4-11.3); NEUTROPHILS % 86.7 % (38.7-80.0); PLATELET COUNT 96 x10e3/uL (140-360); RED BLOOD COUNT 3.39 x10e6/uL (3.6-5.1)
--- NOTE | 2019-12-31 14:20 | Diagnostic Imaging Report ---
HISTORY : Symptomatic ascites. Technique/findings: Informed written consent was obtained. Discussion of risks, benefits, and alternatives were made with the patient. The patient expressed understanding and agreed to proceed. A universal timeout was performed prior to starting the procedure. Initial ultrasound images demonstrate moderate volume of ascites. A pocket of fluid was identified in the left lower quadrant of the abdomen. This area was marked. The area was prepped and draped in the usual sterile fashion. 1% lidocaine was applied to the skin and deep soft tissues. Color ultrasound was used to assess for any vessels within the vicinity of the planned trajectory of the one-step, a image was saved. A 5 Bangladeshi one-step catheter was inserted and removed from the peritoneal space and approximately 3.6 liters of yellow ascitic fluid was aspirated from the abdomen. Specimens were collected for the lab. There were no immediate complications. Impression: Successful ultrasound guided paracentesis with aspiration of 3.6 liters of fluid. On presentation patient was complaining of right lower extremity swelling and pain. I recommended emergency room evaluation to the patient. Signed by: Laith Mcneil MD on 12/31/2019 2:17 PM
[2019-12-31 16:19] LABS: BODY FLUID APPEARANCE SL.CLOUDY; BODY FLUID COLOR YELLOW; BODY FLUID TYPE PERITONEAL
[2019-12-31 17:31] LABS: RBC,BODY FLUID 191 cells/uL; WBC,BODY FLUID 56 cells/uL
[2019-12-31 19:34] LABS: LYMPHOCYTES,BODY FLUID 2 %; MONO/MACROPHG,BODY FLUID 85 %; NEUTROPHILS,BODY FLUID 5 %; OTHER CELLS,BODY FLUID 8 %
== END ==
LOC: US 13:03
PROVIDERS: ATTEND Legal Medicine
DX: R18.8 Other ascites (principal)
CPT/HCPCS: 36415; 49083; 85025; 88112; 88305; 89051

== ENCOUNTER 2020-01-08 13:33 | Inpatient (IN) | payer MEDICARE ==
[~2020-01-08] VITALS: Ht 149.9 cm; Wt 45.8 kg
--- NOTE | 2020-01-08 14:18 | Emergency Department Note ---
History of Present Illnes History of Present Illness Chief Complaint: General Medicine Complaints History of Present Illness This is a 64 year old female PMH liver CA recently seen by myself presents for wanting paracentesis. Story changes frequently and patient is confused. Poor historian. States she was admitted recently to another hospital for SBO and was supposed to get a paracentesis today but was too weak to make it to her appointment. 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 Any updates have been documented here. Past Medical History Recent Fever: No Clinical Suspicion of Infectio: No New/Unexplained Change in Ment: No Past Medical History: Diabetes, Hepatitis C, Liver Disease Other Medical History: multiple hernias Past Surgical History: Hernia Repair Other Surgery: multiple paracentesis Social History Counseling Performed: No Alcohol Use: None Any Illegal Drug Use: No Other Any Pre-Existing Lines (PICC,: No Review of Systems Review of Systems Constitutional: Reports no symptoms EENTM: Reports no symptoms Cardiovascular: Reports no symptoms Respiratory: Reports no symptoms Gastrointestinal: Reports as per HPI (Abd distention) Genitourinary: Reports no symptoms Musculoskeletal: Reports no symptoms Integumentary: Reports no symptoms Neurological: Reports no symptoms Psychological: Reports no symptoms Endocrine: Reports no symptoms Hematological/Lymphatic: Reports no symptoms Physical Exam Related Data Allergies: Coded Allergies: No Known Allergies (Unverified , 07/30/19) Triage Vital Signs Vital Signs Date Time Temp Pulse Resp B/P (MAP) Pulse Ox O2 Delivery O2 Flow Rate FiO2 01/08/20 13:55 98.6 154/85 97 Room Air 01/08/20 14:05 72 18 Vital signs reviewed: Yes Physical Exam CONSTITUTIONAL Constitutional: Present cachectic HENT HENT: Present normocephalic, Present atraumatic, Present oropharynx clear/moist, Present nose normal HENT L/R: Present left ext ear normal, Present right ext ear normal EYES Eyes: Reports PERRL, Reports conjunctivae normal NECK Neck: Present ROM normal PULMONARY Pulmonary: Present effort normal, Present breath sounds normal CARDIOVASCULAR Cardiovascular: Present regular rhythm, Present heart sounds normal, Present capillary refill normal, Present normal rate GASTROINTESTINAL Abdominal: Present soft, Present nontender, Present bowel sounds normal, Present distension GENITOURINARY Genitourinary: Present exam deferred SKIN Skin: Present warm, Present dry MUSCULOSKELETAL Musculoskeletal: Present ROM normal NEUROLOGICAL Neurological: Present alert, Present no gross motor or sensory deficits; Absent oriented x 3 (Confused), Absent cranial nerve deficit PSYCHOLOGICAL Psychological: Present mood/affect normal, Present judgement normal Results Laboratory Lab results reviewed: Yes Imaging Imaging results reviewed: Yes Assessment & Plan Medical Decision Making MDM 64 y.o F w/ PMH of liver cirrhosis and drug abuse presents for abdominal distention. Wasnt able to make it to paracentesis today 2/2 pain. Appears confused. Discussed management with brother who states she is still abusing drugs. Work up show sbasleine labs. Abd distention on exam. Concern for hepatic encephalopathy vs drug abuse. Will admit to Dr. Quintero. Reassessment Reassessment time: 16:24 Reassessment NAD Assessment & Plan Final Impression: (1) Hepatic encephalopathy Depart Disposition: ADMITTED Last Vital Signs Date Time Temp Pulse Resp B/P (MAP) Pulse Ox O2 Delivery O2 Flow Rate FiO2 01/08/20 14:06 97.6 72 18 174/86 96 01/08/20 14:05 Room Air Home Meds Reported Medications Lactulose (LACTULOSE) 20 Gm/30 Ml Solution, 15 MG PO TID, EACH 07/30/19 Insulin Glargine (LANTUS 3ML PEN) 100 Units/1 Ml Inj, 10 UNITS SQ Q12H 07/30/19 Glipizide (GLIPIZIDE) 5 Mg Tablet, 2 MG PO BID, TAB 07/30/19 Furosemide (FUROSEMIDE) 40 Mg Tablet, 40 MG PO HS, #30 TAB 07/30/19 Spironolactone (SPIRONOLACTONE) 25 Mg Tablet, 100 MG PO DAILY, #60 TAB 07/30/19 Levothyroxine Sodium (LEVOTHYROXINE SODIUM) 50 Mcg Tablet, 100 MCG PO DAILY, #30 TAB 07/30/19 VERA BAY MD Jan 08, 2020 14:18
--- OUTSIDE RECORDS SUMMARY | 2020-01-08 14:52 | XMS REPORT | Clinical Summary ---
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 [...] level 01/09/2019 Office Visit Family Practice after 01/07/2019 Immunizations Name Administration Dates Next Due Influenza, [...] Comments Vital Sign 182/95 04/02/2019 1:00 PM FISH PROCESSOR Blood Pressure 78 04/02/2019 1:00 PM FISH PROCESSOR Pulse 36.9 C (98.4 F) 04/02/2019 1:00 PM FISH PROCESSOR Temperature 18 04/02/2019 1:00 PM FISH PROCESSOR Respiratory Rate 98% 04/02/2019 1:00 PM FISH PROCESSOR Oxygen Saturation - - Inhaled Oxygen Concentration 50.8 kg (112 lb) 04/02/2019 8:00 AM FISH PROCESSOR Weight 149.9 cm (4' 11") 04/02/2019 8:00 AM FISH PROCESSOR Height 22.62 04/02/2019 8:00 AM FISH PROCESSOR Body Mass Index Plan of Treatment Health [...] Cirrhosis of liver with W/IMAGING 12:03 PM FISH PROCESSOR ascites, unspecifie d hepatic cirrhosis type GLUCOSE POC Routine 04/02/2019 8:58 AM FISH PROCESSOR U/S PELVIS LTD NON-OB Routine 02/26/2019 Groin sw elling 1:28 PM FISH PROCESSOR DUPLEX DOPPLER ABD/PEL Routine 02/26/2019 Groin s welling VASCULAR STUDY, COMPLETE 1:28 PM FISH PROCESSOR GLUCOSE POC Routine 02/24/2019 8:48 AM FISH PROCESSOR CBC (WITHOUT Routine 02/24/2019 DIFFERENTIAL) 3:35 AM FISH PROCESSOR COMPREHENSIVE METABOLIC Routine 02/24/2019 PANEL 3:35 AM FISH PROCESSOR GLUCOSE POC Routine 02/23/2019 8:[address] ABDOMEN AND PELVIS [place] 02/23/2019 Generali zed abdominal CONTRAST 6:16 PM FISH PROCESSOR pain LACTIC ACID STAT 02/23/2019 2:37 PM FISH PROCESSOR INFUSION PUMP Routine 02/23/2019 2:29 PM FISH PROCESSOR GLUCOSE POC Routine 02/23/2019 12:56 PM FISH PROCESSOR GLUCOSE POC Routine 02/23/2019 9:24 AM FISH PROCESSOR CBC Routine 02/23/2019 6:21 AM FISH PROCESSOR PTT Routine 02/23/2019 6:21 AM FISH PROCESSOR PT/INR Routine 02/23/2019 6:21 AM FISH PROCESSOR CBC/DIFF Routine 02/23/2019 6:21 AM FISH PROCESSOR MAGNESIUM Routine 02/23/2019 6:21 AM FISH PROCESSOR COMPREHENSIVE METABOLIC Routine 02/23/2019 PANEL 6:21 AM FISH PROCESSOR SEQUENTIAL COMPRESSION Routine 02/23/2019 PUMP 5:57 AM FISH PROCESSOR FLUID CULTURE AND GRAM STAT 02/23/2019 STAIN 12:33 AM FISH PROCESSOR DIFFERENTIAL, CELL COUNT STAT 02/23/2019 12:32 AM FISH PROCESSOR CELL COUNT, BODY FLUID STAT 02/23/2019 12:32 AM FISH PROCESSOR LDH, FLD STAT 02/23/2019 12:32 AM FISH PROCESSOR GLUCOSE, FLD STAT 02/23/2019 12:32 AM FISH PROCESSOR T PROTEIN, FLD STAT 02/23/2019 12:32 AM FISH PROCESSOR ALBUMIN, FLD STAT 02/23/2019 12:32 AM FISH PROCESSOR CELL COUNT, FLUID STAT 02/23/2019 12:32 AM FISH PROCESSOR TROPONIN I POC Routine 02/22/2019 11:18 PM FISH PROCESSOR TROPONIN I POC Routine 02/22/2019 11:14 PM FISH PROCESSOR VBG POC Routine 02/22/2019 11:07 PM FISH PROCESSOR AMMONIA STAT 02/22/2019 11:02 PM FISH PROCESSOR LIVER PROFILE STAT 02/22/2019 11:02 PM FISH PROCESSOR PT/INR STAT 02/22/2019 11:02 PM FISH PROCESSOR BMP POC Routine 02/22/2019 10:27 PM FISH PROCESSOR DIFFERENTIAL, MANUAL-WAM STAT 02/22/2019 10:22 PM FISH PROCESSOR CBC STAT 02/22/2019 10:22 PM FISH PROCESSOR CBC/DIFF STAT 02/22/2019 10:22 PM FISH PROCESSOR ECHG EKG PROC 12 LEAD Routine 02/22/2019 EKG; TRACING ONLY 10:13 PM FISH PROCESSOR HEMOGLOBIN A1C Routine 01/09/2019 Type 2 diabetes mellitus 3:56 PM CDT with hyperglycemia, without long-term current use of insulin DIABETIC FOOT EXAM Routine 01/09/2019 Type 2 diab etes mellitus 3:16 PM CDT with hyperglycemia, without long-term current use of insulin after 01/07/2019 Results * ABD PARACENTESIS W/IMAGING (04/02/2019 12:03 PM FISH PROCESSOR) Specimen Impressions Performed At IMPRESSION: SMS Successful ultrasound guided paracentes is. Dictated By: Denisse Montes De Oca DO, 0 12:06 PM I have reviewed the study and agree wit h the findings in this report. Signed By: Raymond Diggs DO, 04/03/2019 4:30 PM Narrative Performed At Procedure: Ultrasound Guided Paracentesis [facility] gravure press set up operator: Dr. Denisse Montes De Oca DO [...] procedure completion:Good Disposition:Discharged home CPT procedure code: 20237 DISCUSSION: A timeout was performed. Th e [...] Interface, Rad/Mammog In - 04/03/2019 4:35 PM FISH PROCESSOR Procedure: Ultrasound Guided Paracentesis gravure press set up operator: Dr. Denisse Montes De Oca DO [...] procedure completion:Good Disposition:Discharged home CPT procedure code: 46481 DISCUSSION: A timeout was performed. The patients [...] DO, 04/03/2019 4:30 PM Performing Organization Address [facility] one Number [facility] * POCT GLUCOSE POC docked device (04/02/2019 8:58 AM FISH PROCESSOR) Only the most recent of 5 results within the time period is included. Glucose POC 167 (H) 74 - 106 mg/dL [facility] Specimen Blood Performing Organization Address [facility] one Number [facility] [address] [place] [address] * U/S PELVIS LTD NON-OB (02/26/2019 1:28 PM FISH PROCESSOR) Specimen Impressions Performed At IMPRESSION: [facility] Fluid containing left inguinal hernia w ith the presence of fat on Valsalva maneuver. No evidence of bowel containing hernia. Signed By: Farhad Hughes, 02/26/2019 2 :54 PM Narrative Performed At Ultrasound pelvis: Transabdominal SMS CPT code: 34628 History: left groin swelling evaluation for hernia, [...] Interface, Rad/Mammog In - 02/26/2019 2:59 PM FISH PROCESSOR Ultrasound pelvis: Transabdominal CPT code: 80923 History: left groin swelling evaluation for hernia, [...] Performing Organization Address City/State/Zipcode Ph one Number [facility] * DUPLEX DOPPLER ABD/PEL VASCULAR STUDY, COMPLETE (02/26/2019 1:28 PM FISH PROCESSOR) Specimen Impressions Performed At IMPRESSION: [facility] Fluid containing left inguinal hernia w ith the presence of fat on Valsalva maneuver. No evidence of bowel containing hernia. Signed By: Farhad Hughes, 02/26/2019 2 :54 PM Narrative Performed At Ultrasound pelvis: Transabdominal [facility] CPT code: 05694 History: left groin swelling evaluation for hernia, [...] Interface, Rad/Mammog In - 02/26/2019 2:59 PM FISH PROCESSOR Ultrasound pelvis: Transabdominal CPT code: 30177 History: left groin swelling evaluation for hernia, [...] * Comprehensive Metabolic Panel (02/24/2019 3:35 AM FISH PROCESSOR) Only the most recent of 2 results [...] [facility] Specimen Blood Performing Organization Address [facility] one Number [facility] [address] [place] [address] * CBC (without differential) (02/24/2019 3:35 AM FISH PROCESSOR) WBC 4.6 4.5 - 11.0 K/uL [facility] [...] [facility] Specimen Blood Performing Organization Address [facility] one Number [facility] [address] [place] [address] * CT ABDOMEN AND PELVIS CONTRAST (02/23/2019 6:16 PM FISH PROCESSOR) Specimen Impressions Performed At IMPRESSION: SMS 1. [...] Interface, Rad/Mammog In - 02/24/2019 10:20 AM FISH PROCESSOR EXAM: CT Abdomen and Pelvis WITH contrast [...] Hughes, 02/24/2019 10:15 AM Performing Organization Address [facility] one Number SMS * Lactic Acid (02/23/2019 2:37 PM FISH PROCESSOR) Lactic Acid 1.7 0.5 - 2.2 mmol/L [facility] Specimen Blood Performing Organization Address [facility] one Number [facility] [address] [place] [address] * CBC/Diff (02/23/2019 6:21 AM FISH PROCESSOR) Only the most recent of 2 results [...] (H) 0.24 - 0.36 K/uL [facility] [place] Eos (Absolute) 0.06 0.04 - 0.36 K/uL [facility] Baso (Absolute) 0.02 0.01 - 0.08 K/uL [facility] Immature Grans 0.02 0.00 - 0.03 K/uL [facility] (Abs) [facility] Absolute NRBC 0.00 K/uL [facility] Specimen Blood Performing Organization [facility] one Number [facility] [address] [place] [address] * PTT (02/23/2019 6:21 AM FISH PROCESSOR) PTT 41.1 (H) 23.6 - 36.4 Seconds [facility] Comment: LABORATORY The recommended therapuetic range is an APTT 61-103 seconds which corresponds to 0.3-0.7 anti Xa u/ml. Specimen Blood Performing Organization [facility] one Number [facility] [address] [place] [address] [phone] * PT/INR (02/23/2019 6:21 AM FISH PROCESSOR) Only the most recent of 2 results within the time period is included. Pathologist [facility] PT 19.8 (H) 11.8 - 15.0 Seconds [facility] INR 1.7 Refer to INR [facility] Comment: therapeutic ranges LABORATORY 2.0 - 3.0 for moderate intensity anticoagulation 2.5 - 3.5 for high intensity anticoagulation Specimen Blood Performing Organization [facility] one Number [facility] [address] [place] [address] [phone] * Magnesium (02/23/2019 6:21 AM FISH PROCESSOR) Pathologist [facility] Magnesium 1.6 (L) 1.9 - 2.7 mg/dL [facility] Specimen Blood Performing Organization [facility] one Number [facility] [address] [place] [address] * Fluid Culture and Gram Stain (02/23/2019 12:33 AM FISH PROCESSOR) Pathologist [facility] Body Fluid No growth 3 days [facility] Culture [facility] Gram Stain 1+ WBCs [facility] Gram Stain No organisms seen [facility] Specimen Body Fluid - Peritoneal cavity Performing Organization [facility] one Number [facility] [address] [place], [place] [address] [phone] * DIFFERENTIAL, CELL COUNT (02/23/2019 12:32 AM FISH PROCESSOR) Pathologist [facility] Neutrophil 10 % [facility] Lymphocyte 15 % [facility] Monocyte 15 % [facility] Macrophage 53 % [facility] Mesothelial, 6 % [facility] Cell [facility] Plasma Cell 1 % [facility] Cells Counted 100 [facility] Specimen Body Fluid - Peritoneum Performing Organization Address [facility] one Number [facility] [address] [place] [address] * Cell Count, Fluid (02/23/2019 12:32 AM FISH PROCESSOR) Volume 3 mL [facility] Appearance Clear Clear [facility] Calculated 2,325 None seen /uL [facility] RBC-Body Fluid [facility]ORY WBC Body Fluid 100 /uL [facility] Clots? No [facility] Specimen Body Fluid - Peritoneum Performing Organization Address [facility] one Number [facility] [address] [place] [address] * T Protein, Fld (02/23/2019 12:32 AM FISH PROCESSOR) Protein, Fluid <3.0 g/dL [facility] Comment: [facility]ORY Reference interval study is not possible due to unavailable normal samples and the limited availability of published data. The reference range has not been established for body fluids. The test result should be integrated into the clinical context for interpretation. Specimen Body Fluid - Peritoneal cavity Performing Organization Address [facility] one Number [facility] [address] [place] [address] * LDH, Fld (02/23/2019 12:32 AM FISH PROCESSOR) LDH, Fld 38 U/L [facility] Comment: LABORATORY Reference interval study is not possible due to unavailable normal samples and the limited availability of published data. The reference range has not been established for body fluids. The test result should be integrated into the clinical context for interpretation. Specimen Body Fluid - Peritoneal cavity Narrative Performed At Disclaimer: [facility] The performance characteristic of quant itative testing of body fluid using Adam [id number] has been reviewed and th e performance of the method is considered acceptable for patient testing. This test was developed and its performance characteristic determined by [facility] iochemistry laboratory. It has not been cleared or approved by the [place].S. Food an d Drug Administration. The FDA has determined that such clearance of appro alesha is not necessary. This test is used for clinical purposes. It should not be regarded as investigational or research. Performing Organization Address [facility] one Number [facility] [address] [place] [address] [phone] * Glucose, Fld (02/23/2019 12:32 AM FISH PROCESSOR) Glucose, Fld 267 mg/dL [facility] Comment: LABORATORY Reference interval study is not possible due to unavailable normal samples and the limited availability of published data. The reference range has not been established for body fluids. The test result should be integrated into the clinical context for interpretation. Specimen Body Fluid - Peritoneal cavity Narrative Performed At Disclaimer: [facility] The performance characteristic of quant itative testing of body fluid using Adam [id number] has been reviewed and th e performance of the method is considered acceptable for patient testing. This test was developed and its performance characteristic determined by [facility] [employer] laboratory. It has not been cleared or approved by the I.S. Food an d Drug Administration. The FDA has determined that such clearance of appro alesha is not necessary. This test is used for clinical purposes. It should not be regarded as investigational or research. Performing Organization Address [facility] one Number [facility] [address] [place] [address] * Albumin, Fluid (02/23/2019 12:32 AM FISH PROCESSOR) Albumin, Fld <1.5 g/dL [facility] Comment: LABORATORY Reference interval study is not possible due to unavailable normal samples and the limited availability of published data. The reference range has not been established for body fluids. The test result should be integrated into the clinical context for interpretation. Specimen Body Fluid - Peritoneal cavity Narrative Performed At Disclaimer: [facility] The performance characteristic of quant itative testing of body fluid using Adam [id number] has been reviewed and th e performance of the method is considered acceptable for patient testing. This test was developed and its performance characteristic determined by [facility] [employer] laboratory. It has not been cleared or approved by the I.S. Food an d Drug Administration. The FDA has determined that such clearance of appro alesha is not necessary. This test is used for clinical purposes. It should not be regarded as investigational or research. Performing Organization Address [facility] one Number [facility] [address] [place] [address] * POCT TROPONIN I POC docked device (02/22/2019 11:18 PM FISH PROCESSOR) Only the most recent of 2 results within the time period is included. Troponin POC 0.00Comment: Physician 0.00 - 0.08 ng/mL [facility] Not[facility] Specimen Blood, venous Performing Organization Address [facility] one Number [facility] [address] [place] [address] * POCT VBG POC docked device (02/22/2019 11:07 PM FISH PROCESSOR) pH, Tip POC 7.46 (H) 7.33 - [...] LABORATORY Specimen Blood, venous Performing Organization Address [facility] one Number [facility] [address] [place] [address] [phone] * Liver Profile (02/22/2019 11:02 PM FISH PROCESSOR) Total Protein 6.5 6.0 - 8.3 g/dL [...] [facility] Specimen Blood Performing Organization Address [facility] one Number [facility] [address] [place] [address] * Ammonia (02/22/2019 11:02 PM FISH PROCESSOR) Ammonia 82.0 (H) 16.0 - 53.0 umol/L [facility] Specimen Blood Performing Organization Address [facility] one Number [facility] [address] [place] [address] [phone] * POCT BMP POC docked device (02/22/2019 10:27 PM FISH PROCESSOR) Sodium POC 139 136 - 145 mmol/L [facility] Potassium POC 3.5 3.5 - 5.1 mmol/L [facility] Chloride POC 99 98 - 107 mmol/L [facility] TCO2 POC 25 21 - 32 mmol/L [facility] Urea Nitrogen 9 7 - 18 [...] LABORATORY Specimen Blood, venous Performing Organization Address [facility] one Number [facility] [address] [place] [address] * Differential, Manual (02/22/2019 10:22 PM FISH PROCESSOR) Neutrophil 83.0 (H) 34.0 - 70.0 % [...] 0.36 0.24 - 0.36 K/uL [facility] [place] Eos (Absolute) 0.00 (L) 0.04 - 0.36 K/uL [facility] Baso (Absolute) 0.05 0.01 - 0.08 K/uL [facility] Ovalocyte 2+ (A) None seen [facility] Schistocyte 1+ (A) None seen [facility] Tear Drop Cell 2+ (A) None seen [facility] Cells Counted [facility] Specimen Blood Performing Organization Address [facility] one Number [facility] [address] [place] [address] * 12 LEAD EKG (02/22/2019 10:13 PM FISH PROCESSOR) 12 LEAD EKG FOR [facility] Test Date: 2019-02-22 Pat Name: LUCY SCANLON Department: [id number] Room[facility] Gender: F Perioperative Assistant: [id number] : 1955 Requested By: KELLEN Allison Order Number: [id number] Reading MD: Pasha Grover M.D. Measurements Intervals [place] Rate: 87 P: SD: 0 QRS: 9 QRSD: 78 T: 16 QT: 420 QTc: 507 Interpretive Statements LIKELY ECTOPIC ATRIAL RHYTHM Electronically Signed On 02-23-2019 6:37:53 FISH PROCESSOR by Pasha Grover M.D. Specimen Performing Organization Address [facility] one Number [facility] * Hemoglobin A1C (01/09/2019 3:56 PM CDT) Hemoglobin A1c 6.7 (H) 4.3 - 6.1 % [facility] Estimated 146 (H) 70 - 110 mg/dL [facility] Average Glucose LABORATORY Specimen Blood Performing Organization Address [facility] one Number [facility] [address] [place] [address] [phone] * DIABETIC FOOT EXAM (01/09/2019 3:16 PM [...] earance is abnormal (thickended toe nails). after 01/07/2019 Insurance Type Payer Benefit Subscriber ID Effective Phone Address Plan / Dates Group [facility] [address] [employer] xxxxxxxx 2019-1 [facility] [address] [place] [address] [facility] SELF-PAY SELF-PAY xxxxxx 2019- [phone] [id number] [place] [address] (Work) Advance Directives Date Inactivated Comments Code Status Date Activated 05/20/2019 8:44 PM Full Code 04/02/2019 9:17 AM 02/24/2019 1:59 PM Full Code 02/23/2019 5:33 AM 03/28/2018 6:28 PM Full Code 03/25/2018 12:04 AM 01/08/2018 12:32 PM Full Code 01/07/2018 12:58 PM 11/08/2016 5:10 PM Allow Natural 11/07/2016 9:22 AM
--- OUTSIDE RECORDS SUMMARY | 2020-01-08 14:52 | XMS REPORT | Clinical Summary ---
Author Author [facility] Organization [facility] Address Unknown Phone Unavailable Care Team Providers Care Project Scientist Name Role Phone Asked, No Pcp PCP [...] with nausea, unspecified vomiting type; Hypokalemia 11/19/2019 [facility] General Surgery - Encounter 11/28/2019 11/19/2019 Travel Donell Lemons 10/21/2019 Documentation Transplant Donell Lemons 10/19/2019 Documentation Transplant Alireza Kelly MD Arriaga, Michael, MD Nguyen, Thuyen T., MD 10/08/2019 [facility] Internal Sd dicine - Encounter 10/10/2019 10/08/2019 Travel Wendy [...] - Liver Txp 08/28/2019 Telephone Transplant after 01/07/2019 Surgical History Surgery Date Site/Laterality Comments UMBILICAL HERNIA REPAIR PARACENTESIS COLONOSCOPY REPAIR, HERNIA, INGUINAL 11/20/2019 Groin/Left Proce dure: OPEN LEFT INGUINAL HERNIA REPAIR W/ MESH; PARACENTESIS; Surgeon: Amari Carlisle MD; Location: [facility]; [facility] e: General; Laterality: Left; Medical devices from [...] ot Implanted Type Area Manufactur er 04/21/2024 [id number] / / [id number] Plug Hrnia Rpr Perfix Med Surgical N/A: N/A CR B PARTH 1.3x1.55in - [id number] Mesh or Implanted: Qty: 1 on 11/20/2019 by Kathrine Zambrano MD at [facility] Products Procedures Comments Procedure Name Priority [...] PATHOLOGY Routine 11/20/2019 REQUEST 6:[address] AN ELECTIVE Routine 11/20/2019 ENDOTRACHEAL AIRWAY 5:41 [...] Routine 10/08/2019 PANEL 8:55 PM CDT after 01/07/2019 Results * POC glucose (11/28/2019 11:40 AM CDT) Only the most recent of 46 results within the time period is included. [facility] POC glucose 239 (H) 65 - 99 mg/dL [facility]OR Comment: LATTER-DAY Crowd Controller Name: [facility] Device ID: [id number] Chartable: [facility] Notified RN Specimen Blood Performing Organization Address City/State/ZIP Code P arabella Number [facility] DEPARTMENT OF [address] [place] [address] PATHOLOGY AND GENOMIC MEDICINE C[facility] LATTER-DAY [address] [place] [address] * Estimated GFR (11/28/2019 5:30 AM CDT) Only the most recent of 14 results within the time period is included. [facility] Estimated GFR >=90 mL/min/1.73 m2 [facility]OR Comment: [facility] HOSPITAL Interpretation G1 >=90 Normal or high [...] published in 2014. Specimen Performing Organization Address City/[facility]/ZIP Code P arabella Number [facility] [place] [address] PATHOLOGY AND GENOMIC MEDICINE [address] * CBC hemogram (11/28/2019 5:30 AM CDT) Only the most recent of 6 results within the time period is included. Pathologist [facility] WBC 7.78 4.50 - 11.00 k/uL [facility] RBC 3.16 (L) 4.20 - 5.50 m/uL [facility] HGB 10.5 (L) 12.0 - 16.0 g/dL [facility] HCT 31.0 (L) 37.0 - 47.0 % [facility] MCV 98.1 82.0 - 100.0 fL [facility] MCH 33.2 27.0 - 34.0 pg [facility] MCHC 33.9 31.0 - 37.0 g/dL [facility] RDW - SD 55.0 37.0 - 55.0 fL [facility] MPV 13.1 8.8 - 13.2 fL [facility] Platelet count 91 (L) 150 - 400 k/uL [facility] Nucleated RBC 0.30 /100 WBC [facility] Specimen Blood Performing Organization Address City/[facility] P arabella Number [facility] [place] [address] PATHOLOGY AND GENOMIC MEDICINE [address] * Hepatic function panel (11/28/2019 5:30 AM CDT) Only the most recent of 6 results within the time period is included. Pathologist [facility] Albumin 2.7 (L) 3.5 - 5.0 g/dL [facility] Total bilirubin 1.1 0.0 - 1.2 mg/dL [facility] Bilirubin 0.4 (H) 0.0 - 0.3 mg/dL CANDOR direct [facility] Alkaline 116 (H) 35 - 104 U/L [facility] phosphatase [facility] Protein 6.2 (L) 6.3 - 8.3 g/dL [facility] Comment: LATTER-DAY - [facility] 4.6-7.0 g/dL 1 week 4.4-7.6 g/dL 7 months-1year 5.1-7.3 g/dL 1-2 years 5.6-7.5 g/dL >3 years 6.0-8.0 g/dL 18-150 6.3-8.3 g/dL ALT 14 5 - 50 U/L [facility] AST 29 10 - 35 U/L [facility] Specimen Blood Performing Organization Address City/[facility]/ZIP Code P arabella Number [facility] [place] [address] PATHOLOGY AND GENOMIC MEDICINE [address] * Basic metabolic panel (11/28/2019 5:30 AM CDT) Only the most recent of 8 results within the time period is included. Sodium 138 135 - 148 mEq/L [facility] Potassium 3.3 (L) 3.5 - 5.0 mEq/L [facility] Chloride 102 98 - 112 mEq/L [facility] CO2 25 24 - 31 mEq/L [facility] Anion gap 11@ANIO 7 - 15 mEq/L [facility] BUN 6 (L) 8 - 23 mg/dL [facility] Creatinine 0.58 0.50 - 0.90 mg/dL [facility] Glucose 66 65 - 99 mg/dL [facility] Calcium 8.5 (L) 8.8 - 10.2 mg/dL [facility] Specimen Blood Performing Organization Address City/[facility] P arabella Number [facility] [place] [address] PATHOLOGY AND GENOMIC MEDICINE [address] * MRI Abdomen W Wo Contrast [...] Organization Address City/State/ZIP Code P arabella Number [facility] [address] [place] [address] * Blood culture, aerobic & anaerobic (11/27/2019 2:05 AM CDT) Only the most recent of 6 results within the time period is included. Blood culture No growth after 5 days of [facility] isolate incubation. LATTER-DAY Comment: HOSPITAL Specimen Information Specimen Source: Blood Specimen Site: UNSPECIFIED Specimen Blood Performing Organization Address City/[facility] Code P arabella Number [facility] DEPARTMENT OF [address] [place] [address] PATHOLOGY AND GENOMIC MEDICINE [facility] LAT[facility]DAY [address] [place] [address] HOSPITAL * CT Abdomen Pelvis W Contrast [...] exclude enteritis/colitis is advised. Question of gastritis. [facility]-[id number] Procedure Note [facility], Radiology Results Incoming - 11/26/2019 11:15 [...] exclude enteritis/colitis is advised. Question of gastritis. [facility]-[id number] Performing Organization Address City/State/ZIP Code P arabella Number [facility] [address] [place] [address] * US Abdominal Paracentesis Imaging (11/26/2019 4:28 [...] Estimated blood loss: Less than 10 cc [id number] Procedure Note Interface, Radiology Results Incoming - [...] Estimated blood loss: Less than 10 cc [id number] Performing Organization Address [facility] P arabella Number [facility] [address] [place] [address] * Aerobic culture (11/26/2019 4:02 PM CDT) Only the most recent of 2 results within the time period is included. Aerobic culture No growth after 3 days. DUNCAN isolate Comment: LATTER-DAY Specimen Information HOSPITAL Specimen Source: Peritoneal fluid Specimen Site: Abdomen Specimen Peritoneal fluid - Abdomen Performing Organization Address City/[facility]/ZIP [facility] P arabella Number [facility] DEPARTMENT OF [address] [place] [address] PATHOLOGY AND GENOMIC MEDICINE [facility] LATTER-DAY [address] [place] [address] HOSPITAL * Gram stain (11/26/2019 4:02 PM CDT) Only the most recent of 2 results within the time period is included. Gram stain Few WBC's DUNCAN isolate No organisms seen LATTER-DAY Comment: HOSPITAL Specimen Information Specimen Source: Peritoneal fluid Specimen Site: Abdomen Specimen Peritoneal fluid - Abdomen Performing Organization Address [facility] P arabella Number [facility] [place] [address] PATHOLOGY AND GENOMIC MEDICINE C[facility] LATTER[place]DAY [address] [place] [address] HOSPITAL * Anaerobic culture (11/26/2019 4:02 PM CDT) Only the most recent of 2 results within the time period is included. Pathologist [facility] Anaerobic No anaerobic organisms [facility]OR culture isolate isolated. LATTER-DAY Comment: HOSPITAL Specimen Information Specimen Source: Peritoneal fluid Specimen Site: Abdomen Specimen Peritoneal fluid - Abdomen Performing Organization Address City/[facility]/ZIP Code P arabella Number [facility] DEPARTMENT OF [address] [place] [address] PATHOLOGY AND [facility] MEDICINE [address] * Cell count and differential, body fluid (11/26/2019 4:02 PM CDT) Only the most recent of 2 results within the time period is included. Pathologist [facility] Misc fluid type Paracentesis [facility] Color, fluid Yellow [facility] Appearance, Clear [facility] RBC, fluid SEE COMMENTComment: 1+ (0 - /CMM HO USTON 500 RBC/CMM) [facility] Nucleated 229 /CMM [facility] cells, [facility] Fluid See Diff C[facility]OR mononuclear [facility] Neutrophils, 21 % [facility] Lymphocytes, 7 % [facility] Mesothelial 1 % [facility] cells, [facility] Macrophages, 69 % [facility] Plasma cells, 2 % [facility] Specimen Fluid Performing Organization Address [facility] P arabella Number [facility] [place] [address] PATHOLOGY [facility] MEDICINE [address] * Protein, misc fluid (11/26/2019 4:02 PM CDT) Only the most recent of 2 results within the time period is included. Fluid type Paracentesis [facility] Protein, fluid 1.0 g/dL [facility] Comment: LATTER-DAY The reference interval(s) and HOSPITAL other method performance specifications have not been established for this body fluid. The test results must be integrated into the clinical context for interpretation. This test has been modified from the manufacturers instructions. The performance characteristics were determined by [facility] in a manner consistent with CLIA requirements. This test has not been cleared or approved by the U.S. Food and Drug Administration. Specimen Fluid Performing Organization Address City/[facility]/ZIP Code P arabella Number [facility] [place] [address] PATHOLOGY AND GENOMIC MEDICINE [address] * Prothrombin time with INR (11/26/2019 4:30 AM CDT) Only the most recent of 8 results within the time period is included. Prothrombin 18.8 (H) 11.5 - 14.5 sec [facility] INR 1.6 CANDOR Comment: LATTER-DAY [facility] International Normalized HOSPITAL Ratio (INR) is a therapeutic monitoring tool for patients who are stable on oral anticoagulant therapy. An INR of 2.0-3.0 is suggested for deep vein thrombosis/pulmonary embolism. Specimen Blood Performing Organization Address City/[facility] Code P arabella Number [facility] [place] [address] PATHOLOGY AND [facility] MEDICINE [address] * Urinalysis screen and microscopy, with reflex to culture (11/25/2019 9:05 AM CDT) Specimen site Clean catch [facility] Color, UA Angeline [facility] Appearance, UA Clear [facility] Specific 1.031 1.001 - 1.035 [facility] pH, UA 5.0 5.0 - 8.5 [facility] Protein, UA 1+ (A) Negative [facility] Glucose, UA Negative Negative [facility] Ketones, UA Negative Negative [facility] Bilirubin, UA Positive@UBIL (A) Negative [facility] Blood, UA Negative Negative [facility] Nitrite, UA Negative Negative [facility] Urobilinogen, 4.0 (A) <2.0 [facility] Leukocyte Negative Negative [facility] esteraseBAYLOR [facility] Epithelial 3 /HPF [facility] cells, [facility] WBC, UA 1 0 - 4 /HPF [facility] RBC, UA 1 0 - 5 /HPF [facility] Bacteria, UA None seen None seen [facility] Yeast, UA Few (A) [facility] Yeast with None seen [facility] pseudohyphaeNOR[facility]WEST [facility] Hyaline casts, 3 /LPF [facility] Specimen Urine Performing Organization Address City/[facility]/ZIP Code P arabella Number [facility] [place] [address] PATHOLOGY AND GENOMIC MEDICINE [address] * Urine culture (11/25/2019 9:05 AM CDT) Urine culture SEE COMMENTComment: [facility] Bacteriuria screen negative. [facility] Specimen Performing Organization Address City/[facility] P arabella Number [facility] [place] [address] PATHOLOGY AND [facility] MEDICINE [address] * Phosphorus level (11/25/2019 4:00 AM CDT) Only the most recent of 3 results within the time period is included. Phosphorus 2.0 (L) 2.4 - 4.5 mg/dL [facility] Specimen Blood Performing Organization Address [facility] P arabella Number [facility] [place] [address] PATHOLOGY [address] * Magnesium level (11/25/2019 4:00 AM CDT) Only the most recent of 3 results within the time period is included. Magnesium 1.5 (L) 1.6 - 2.4 mg/dL [facility] Specimen Blood Performing Organization Address [facility] P arabella Number [facility] [place] [address] PATHOLOGY AND [facility] MEDICINE [address] * Bilirubin direct (11/25/2019 4:00 AM CDT) Bilirubin 0.7 (H) 0.0 - 0.3 mg/dL [facility] Specimen Performing Organization Address [facility] P arabella Number [facility] [place] [address] PATHOLOGY AND [facility] MEDICINE [address] * Comprehensive metabolic panel (11/25/2019 4:00 AM CDT) Only the most recent of 6 results within the time period is included. Sodium 137 135 - 148 mEq/L [facility] Potassium 3.3 (L) 3.5 - 5.0 mEq/L [facility] Chloride 100 98 - 112 mEq/L [facility] CO2 23 (L) 24 - 31 mEq/L [facility] Anion gap 14@ANIO 7 - 15 mEq/L [facility] BUN 9 8 - 23 mg/dL [facility] Creatinine 0.58 0.50 - 0.90 mg/dL [facility] Glucose 131 (H) 65 - 99 mg/dL [facility] Calcium 7.4 (L) 8.8 - 10.2 mg/dL [facility] Protein 5.4 (L) 6.3 - 8.3 g/dL [facility] Comment: [facility] [place] 4.6-7.0 g/dL 1 week 4.4-7.6 g/dL 7 months-1year 5.1-7.3 g/dL 1-2 years 5.6-7.5 g/dL >3 years 6.0-8.0 g/dL 18-150 6.3-8.3 g/dL Albumin 2.4 (L) 3.5 - 5.0 g/dL [facility] A/G ratio 0.8 0.7 - 3.8 [facility] Alkaline 68 35 - 104 U/L [facility] phosphatase [facility] AST 29 10 - 35 U/L [facility] ALT 12 5 - 50 U/L [facility] Total bilirubin 1.6 (H) 0.0 - 1.2 mg/dL [facility] Specimen Blood Performing Organization Address City/State/ZIP Code P arabella Number [facility] DEPARTMENT OF [address] [place] [address] PATHOLOGY AND GENOMIC MEDICINE [address] * XR Chest 1 Vw Portable [...] calcified atherosclerotic disease. The bones are unremarkable. [id number] Procedure Note Interface, Radiology Results Incoming - [...] calcified atherosclerotic disease. The bones are unremarkable. [id number] Performing Organization Address City/State/[place] [address] * Hemoglobin A1c (11/24/2019 4:22 AM CDT) Hemoglobin A1C 5.8 (H) 4.0 - 5.6 % [facility] Comment: LATTER-DAY HbA1c cutoffs for diagnosing HOSPITAL diabetes: 4.0% - 5.6% = normal 5.7% - 6.4% = increased risk for diabetes (prediabetes)9 >=6.5% = diabetes9 Goals for glycemic control (ADA 2016) < 7.0% Target for non adults with diabetes. More or less stringent targets may be appropriate for individual patients. <7.5% Target for Children and adolescents with type 1 diabetes. Specimen Blood Performing Organization Address City/State/[facility] Code P arabella Number [facility] DEPARTMENT OF [address] [place] [address] PATHOLOGY AND GENOMIC MEDICINE [facility] LATTER-DAY [address] [place] [address] HOSPITAL * XR Abdomen 1 Vw Portable [...] plain film evidence of fr ee air. [id number] Procedure Note Hm Interface, Radiology Results Incoming [...] plain film evidence of laura e air. [id number] Performing Organization Address City/[facility]/[place]IP [place] [address] * Alpha fetoprotein (11/23/2019 4:00 AM CDT) Pathologist [facility] Alpha 6.0 0.0 - 8.3 ng/mL [facility] fetoprotein Comment: LATTER-DAY The Fred 8000 AFP immunoassay [facility] was used. Results obtained with different assay methods or kits should not be used interchangeably and may be different. Specimen Serum Performing Organization Address City/[facility] P arabella Number [facility] DEPARTMENT OF [address] [place] [address] PATHOLOGY AND GENOMIC MEDICINE [address] * CBC with platelet and differential (11/22/2019 3:45 AM CDT) Only the most recent of 7 results within the time period is included. WBC 6.45 4.50 - 11.00 k/uL [facility] RBC 3.08 (L) 4.20 - 5.50 m/uL [facility] HGB 10.1 (L) 12.0 - 16.0 g/dL [facility] HCT 31.3 (L) 37.0 - 47.0 % [facility] MCV 101.6 (H) 82.0 - 100.0 fL [facility] MCH 32.8 27.0 - 34.0 pg [facility] MCHC 32.3 31.0 - 37.0 g/dL [facility] RDW - SD 56.0 (H) 37.0 - 55.0 fL [facility] MPV 12.6 8.8 - 13.2 fL [facility] Platelet count 77 (L) 150 - 400 k/uL [facility] Nucleated RBC 0.00 /100 WBC [facility] Neutrophils 80.2 (H) 39.0 - 69.0 % [facility] Lymphocytes 9.6 (L) 25.0 - 45.0 % [facility] Monocytes 8.8 0.0 - 10.0 % [facility] Eosinophils 0.9 0.0 - 5.0 % [facility] Basophils 0.2 0.0 - 1.0 % [facility] Immature 0.3Comment: "Immature 0.0 - 1.0 % [facility] granulocytes granulocytes" (promyelocytes, METHOD IST myelocytes, metamyelocytes) HOSPITAL Specimen Blood Performing Organization Address City/[facility] [place] [address] PATHOLOGY AND GENOMIC MEDICINE [address] * Lactic acid level (11/21/2019 4:00 AM CDT) Only the most recent of 3 results within the time period is included. Pathologist [facility] Lactic acid 2.9 (H) 0.5 - 2.2 mmol/L [facility] Specimen Blood Performing Organization Address City/[facility] [place] [address] PATHOLOGY AND GENOMIC MEDICINE [address] * Surgical pathology request (11/20/2019 6:26 PM CDT) [facility] DEPARTMENT OF PATHOLOGY AND GENOMIC MEDICINE Surgical See link below for PDF Lab [facility] DEPART MENT pathology Report OF PATHOLOGY report AND GENOMIC MEDICINE Result status This is Final Report for [facility] NT [id number] OF PATHOLOGY AND GENOMIC MEDICINE Specimen Performing Organization Address City/[facility] P arabella Number [facility] [place] [address] PATHOLOGY AND GENOMIC MEDICINE * Airway (11/20/2019 5:41 PM CDT) Narrative Performed At Randa Prabhakar CRNA 10/24 5:45 PM Airway Date/Time: 11/20/2019 5:05 PM Performed by: Randa Prabhakar CRNA Authorized by: Allen Loco MD Location: OR Urgency: Elective Difficult Airway: No Anesthesiologist: Allen Loco MD Resident/SALON SUPERVISOR/AA: Randa Prabhakar CRNA Performed by: resident/SALON SUPERVISOR/AA Preoxygenated with 100% O2: Yes C-spine Precautions [...] X 1 with Pastor 2 blade by SALON SUPERVISOR; grade I view obtained. 7.0 ETT advanced through vocal cords with direct visualization, cuff to occlusive seal, placement confirmed with bilateral chest rise, +mist in ETT, and +etCO2. A traumatic intubation-lips and gums (patient edentulous). OGT easily placed for case duration, stomach decompressed, and OGT placed to gravity . * Potassium, syringe (11/20/2019 3:28 PM CDT) Potassium, 3.2 (L) 3.5 - 5.0 mEq/L [facility] Specimen Blood Performing Organization Address City/[facility] [place] [address] PATHOLOGY AND GENOMIC MEDICINE [address] * Potassium level (11/20/2019 12:04 PM CDT) Potassium 2.8 (LL) 3.5 - 5.0 mEq/L [facility] Specimen Performing Organization Address City/[facility] Code P arabella Number [facility] [place] [address] PATHOLOGY AND GENOMIC MEDICINE [address] * Type and screen (11/20/2019 11:40 AM CDT) ABO grouping O [facility] Rh type POS [facility] Antibody screen NEG [facility] (gel) [facility] Specimen Blood Performing Organization Address [facility] P arabella Number [facility] [place] [address] PATHOLOGY AND [facility] MEDICINE [address] * Lactic acid level, SEPSIS - Now and repeat 2x every 3 hours (11/20/2019 4:05 AM CDT) Only the most recent of 3 results within the time period is included. Pathologist [facility] Lactic acid 2.8 (H) 0.5 - 2.2 mmol/L [facility] Specimen Blood Performing Organization Address [facility] P arabella Number [facility] [place] [address] * COVID-19 qualitative PCR (11/19/2019 11:34 PM CDT) Only the most recent of 2 results within the time period is included. [facility] [place] Interpretation Negative results do not [place] preclude 2019-nCoV infection [facility] and should not be used as the HOSPITAL sole basis for treatment or other patient management decisions. Negative results must be combined with clinical observations, patient history, and epidemiological information. COVID-19 Not-Detected Not-Detected [facility] qualitative PCR [facility] result HOSPITAL COVID-19 See link below for PDF Lab [facility] qualitative PCR ReportComment: Case Number: [facility] [id number] HOSPITAL Specimen Nasopharyngeal swab Performing Organization Address [facility] P arabella Number [facility] [place] [address] PATHOLOGY AND GENOMIC MEDICINE [address] * Partial thromboplastin time, activated (11/19/2019 11:34 PM CDT) Only the most recent of 2 results within the time period is included. PTT 33.9 23.0 - 36.0 sec [facility] Comment: [facility] PTT therapeutic range for HOSPITAL unfractionated heparin is 61.0-112.0 seconds which corresponds to Anti-Xa 0.3-0.7 U/ml. Specimen Blood Performing Organization Address City/[facility] Code P arabella Number [facility] [place] [address] PATHOLOGY AND [facility]IC[facility] [address] * Lipase level (11/19/2019 11:34 PM CDT) Lipase 14 13 - 60 U/L [facility] Specimen Blood Performing Organization Address City/[facility] P arabella Number [facility] [place] [address] PATHOLOGY AND [facility] [address] * Ammonia level (11/19/2019 11:34 PM CDT) Ammonia 66 (H) 11 - 51 umol/L [facility] Specimen Blood Performing Organization Address [facility] P arabella Number [facility] [place] [address] PATHOLOGY AND [facility] [address] * Alcohol level, blood (11/19/2019 11:34 PM CDT) Alcohol None Detected mg/dL [facility] Comment: [facility] None Detected Legal Intoxication in [place] 80 mg/dL (0.08%) - Whole Blood Toxic Concentration 200 mg/dL (0.2%) Potentially Fatal 350 - 500 mg/dL (0.35 - 0.5%) Alcohol percent None Detected % [facility] Specimen Blood Performing Organization Address [facility] P arabella Number [facility] [place] [address] PATHOLOGY AND [facility] [address] * US Abdomen Complete (10/09/2019 3:05 [...] likely from the ascites. No sonographic Leos sign . 3.Other findings as above [id number] [...] City/State/ZIP Code P ar[place] Number [facility] [address] [place] [address] * Albumin, misc fluid (10/09/2019 2:20 PM CDT) Fluid type Ascitic [facility] Albumin, fluid 0.5 g/dL [facility] Comment: [facility] The reference interval(s) and HOSPITAL other method performance specifications have not been established for this body fluid. The test results must be integrated into the clinical context for interpretation. This test has been modified from the manufacturers instructions. The performance characteristics were determined by [facility] in a manner consistent with CLIA requirements. This test has not been cleared or approved by the U.S. Food and Drug Administration. Specimen Fluid Performing Organization Address City/[facility] P arabella Number [facility] [place] [address] PATHOLOGY AND [facility] [address] * Thyroid stimulating hormone (10/09/2019 5:41 AM CDT) TSH 0.59 0.27 - 4.20 uIU/mL [facility] Specimen Blood Performing Organization Address [facility] [place] [address] PATHOLOGY AND [facility] [address] * T4, free (10/09/2019 5:41 AM CDT) T4, free 1.5 0.9 - 1.7 ng/dL [facility] Specimen Blood Performing Organization Address [facility] P arabella Number [facility] [place] [address] PATHOLOGY AND [facility] [address] after 01/07/2019 Insurance Type Payer Benefit Subscriber ID Effective Phone Address Plan / Dates Group HMO HUMANA MEDICARE HUMANA O [id number] 2019-P GOLD PLUS resent MEDICARE [facility] [address] [id number] Advance Directives For more information, please contact: [phone] 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
--- OUTSIDE RECORDS SUMMARY | 2020-01-08 14:54 | XMS REPORT | Continuity of Care Document ---
Author Author [facility] t Organization [facility] Address [address] [place] [address] Phone Unavailable Care Team Providers Care Real Estate Developer Name Role Phone MD SELINA REDDING PCP HARRISON LOPEZ Attphys Unavailable Cedrick RN, Kyra Attphys Unavailable Alex Gandara DO Attphys [phone] Michael MATSON, Kait Attphys Rasheed MATSON, Asaf hDillon Attphys Julio MATSON, Alex Odom Attphys Beronica MATSON, Allen Attphys Raj MINIATURE SET DESIGNER, Madyson Attphys Orestes MATSON, Fady Chisholm Attphys Mike Lemons Attphys Unavailable Robin MATSON, Fady Lay Attphys Cheli MATSON, Layla Lu Attphys Devyn DAVENPORT, Wendy Attphys Unavailable Bryan RN, Vivien Attphys Unavailable Izzy [facility], Consuelo Attphys Unavailable Soren DAVENPORT, Keegan Patten Attphys Unavailable SAMI, ADAM Attphys Unavailable Curtis ROB, Gi Attphys Unavailable Kevin MATSON, T Bebeto Attphys [facility], J Raymond Attphys Brian MATSON, Mili Attphys Chan CARLSON, A Kusum Attphys Yoel Fellow(), Jitendra Attphys [phone] Clarice MATSON, Stella Mcdaniels Attphys Paradise MATSON, Ольга Elam Attphys Brock Fellow(), O Uziel Attphys [phone] Alayna ROB, Mildred Jackson Attphys Unavailable Brady MATSON, Lala Kumar Attphys Unavailable KAIT RODRIGUEZ Admphys Unavailable LINA GUZMÁN Admphys Unavailable tSella CABRERA Admphys Unavailable Payers Payer Name Policy Type Policy Number Effective Date Expiration Date S [facility] [employer] Medicare [id number] 2019 00:00:00 [facility] H[facility] GOLD PLUS [id number] 0-[id number] [id number] 2019 00:00:00 [facility] [id number] [place] [id number] xxxxxxxx 2019 00:00:00 2078 23:59:59 [facility]-PAYSELF-PAY SCREENEDxxxxxx1/27 //[id number] [place] [address] xxxxxx 2019 00:00:00 2029 2 3:59:59 [facility] Problems Condition Name Condition Details Condition Category [...] Benign Essential Hypertension Problem Active 2019-04-27 00:00:00 [facility] Hernia of abdominal cavity Hernia of Abdominal Cavity Problem Active 2019-04-27 00:00:00 [facility] Disease of liver Disease of Liver Problem Active 2019-04-27 00:00:00 [facility] Umbilical hernia Umbilical hernia Disease Active 2018-03-25 00:00:00 [facility] Strangulated umbilical hernia Strangulated umbilical hernia Disease Active 2018-03-24 00:00:00 Overview: Ad ded automatically from request for surgery [id number] [facility] Portal vein thrombosis Portal vein thrombosis Disease Active 2018-01-07 00:00:00 [facility] 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 2018-01-07 00:00:00 [facility] Edema Edema Disease Active 2016-10-25 00:00:00 [facility] Myalgia Myalgia Disease Active 2011-04-23 00:00:00 [facility] Costochondritis Costochondritis Disease Active 2011-04-23 00:00:00 [facility] Depression Depression Disease Active 2010-06-15 00:00:00 [facility] Tobacco dependence Tobacco dependence Disease Active 2010-05-11 00:00:0 0 [facility] Hypothyroidism Hypothyroidism Disease Active 2010-03-02 00:00:00 [facility] Cellulitis Problem Active [facility] Hypokalemia Problem Active [facility] Dysthymia Dysthymia Disease Active [facility] Hypertension Hypertension Disease Active [facility] Opiate dependence Opiate dependence Disease Active [facility] HCV infection HCV infection Disease Active [facility] 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 Dis ease Active [facility] Generalized edema Generalized edema Disease Active [facility] Polysubstance abuse Polysubstance abuse Disease Active [facility] Chronic hepatitis C without hepatic coma Chronic hepat itis C without hepatic coma Disease Active [facility] Essential hypertension Essential hypertension Disease Active [facility] Acquired hypothyroidism Acquired hypothyroidism Disease Active [facility] Other partial intestinal obstruction Other partial intestina l obstruction Disease Active [facility] Abdominal pain Abdominal pain Disease Active [facility] S/P exploratory laparotomy S/P exploratory laparotomy Disease Active [facility] Hyperglycemia Hyperglycemia Disease Active [facility] At risk for hypoglycemia At risk for hypoglycemia Disease Active [facility] Hemoglobin A1c between 7.0% and 9.0% Hemoglobin A1c between 7.0% and 9.0% Disease Active [facility] Type 2 diabetes mellitus with hyperglyce marla, without long-term current use of insulin Type 2 diabetes mellitus with hyperglyce marla, without long-term current use of insulin Disease Active [facility] Unilateral recurrent inguinal hernia without obstructi on or gangrene Unilateral recurrent inguinal hernia without obstruction or gangrene Disease Active [facility] Other ascites Other ascites Disease Active [facility] Allergies, Adverse Reactions, Alerts Allergy Name Allergy Type Status Severity Reaction(s) Onset Date Inacti ve Date Treating Clinician Comments Source No Known Allergies DA Active U 2015-04-29 00:00:00 [facility] Family History Family Member Diagnosis Comments Start Date Stop Date Source Natural brother Psychiatry [facility] Natural father Psychiatry [facility] Maternal grandmother Hypertension [facility] Maternal uncle Other [facility] Maternal uncle Psychiatry [facility] Natural mother [facility]pertension [facility] Natural mother Psychiatry [facility] Social History Social Habit Start Date Stop Date Quantity Comments Source History of tobacco use Cigarette Smoker [facility] History SDOH Alcohol Std Drinks [place] [facility] History SDOH Alcohol Binge [place] [facility] Sex Assigned At [facility] Tobacco use and exposure 2019-11-23 00:00:00 2019-11-23 00:00:00 Esequiel barnett used [place] [facility] History SDOH Alcohol Frequency 2019-11-20 00:00:00 2019-11-20 00:00:0 0 1 [place] [facility] Cigarettes smoked current (pack per day) - Reported 00:00:00 2019-03-10 00:00:00 [facility] Cigarette pack-years 2019-03-10 00:00:00 2019-03-10 00:00:00 [facility] Alcohol intake 2019-03-10 00:00:00 2019-03-10 00:00:00 Ex-drinker (shakira linn) [facility] History SDOH Food Worry 2017-06-13 00:00:00 2017-06-13 00:00:00 2 [facility] History SDOH Food Scarcity 2017-06-13 00:00:00 2017-06-13 00:00:00 2 [facility] Tobacco Comment 2010-06-29 00:00:00 2010-06-29 00:00:00 had cut back to less than half a pack daily on wellbutrin once daily; now smoking again a pack or more a day [facility] Alcohol Comment 2010-06-15 00:00:00 2010-06-15 00:00:00 once ivone vargas 2 years has 4 x 12 oz beers; last drink 02/10/2010 in suicide attempt drank a bottle of liquor with other substances [facility] Smoking Status Start Date Stop Date Source Light Tobacco Smoker [facility] Current every day smoker 2019-03-10 00:00:00 [facility] Medications Ordered Medication Name Filled Medication Name [...] glipiZIDE (GLUCOTROL) 10 MG tablet 2019-11-28 17:28:37 202 00:00:00 No 10mg Q.5D Take 10 mg [...] (15 mL) solution 2019-11-28 17:28:35 Yes 10g [id number] Take 10 g by mouth 3 (three) times a day as needed. Clemente [facility] hydrOXYzine (ATARAX) 25 MG tablet 2019-11-28 17:28:35 Yes 25mg Q6H Take 25 mg by mouth every 6 (six) hours as needed for itching. Clemente Burns gabapentin (Neurontin) 100 mg capsule 2019-11-28 00:00 :00 2019-12-28 23:59:00 No 200mg Q.[id number] Take 2 capsules (200 mg total) by [...] QD Take 100 mg by mouth daily. [place] [facility] spironolactone (ALDACTONE) 100 mg tablet 2019-02 00:00:00 2019-06-08 23:59:00 No Periumbilical abdominal pain 200mg QD Take 2 tablets by mouth daily for 90 days. [facility] glipiZIDE (GLUCOTROL) 10 mg tablet 2019-03-02 00:00:00 Yes Newly diagnosed diabetes 5mg Q.5D Take 0.5 tablets by mouth 2 times daily (before meals). [facility] furosemide (LASIX) 40 mg tablet 2019-02-25 00:00:00 00:00:00 No Periumbilical abdominal pain 40mg QD Take 1 tablet by mo uth daily for 90 days. [facility] spironolactone (ALDACTONE) 100 mg tablet 2019-02 11:43:46 2019-02-24 00:00:00 No 100mg QD Take 100 mg by mouth daily. [facility] lactulose (CHRONULAC) 10 gram/15 mL oral solution 2019-02-24 00:00:00 Yes Increased ammonia level 20g Take 30 mL by mouth 3 times daily. [facility] spironolactone (ALDACTONE) 100 mg tablet 2019-02 00:00:00 2019-03-10 00:00:00 No Periumbilical abdominal pain 100mg QD Take 1 tablet by mouth daily for 90 days. [facility] lactulose (CHRONULAC) 10 gram/15 mL oral solution 2019-01-09 00:00:00 2019-02-24 00:00:00 No Increased ammonia level 20g Take 30 mL by mouth 3 times daily. [facility] tropicamide (MYDRIACYL) 0.5 % ophthalmic solution 2019-01-09 00:00:00 2019-01-09 23:59:00 No Type 2 diabetes joanne itus with hyperglycemia, without long-term current use of insulin 1[drp] Instill 1 Drop in each eye once as needed for up to 1 dose (for poor retina scan image). [facility] nicotine (NICODERM CQ) 21 mg/24 hr patch 2018-09-19 00:00:00 Yes Tobacco dependence 1{patch} Apply 1 Patch to skin as directed every 24 hour s. [facility] hydrocortisone 1 % ointment 2018-09-19 00:00:00 Yes Skin lesion Q.5D Apply to affected area 2 times daily. [facility] hydrOXYzine (ATARAX) 25 mg tablet 2018-09-10 00:00:00 Yes Itching 25mg Take 1 tablet by mouth 3 times daily as needed for Itching. [facility] glipiZIDE (GLUCOTROL) 10 mg tablet 2018-07-01 00:00:00 201 12-04-05 00:00:00 No Newly diagnosed diabetes 5mg Q.5D Take 0. 5 tablets by mouth 2 times daily (before meals). [facility] traMADol (ULTRAM) 50 mg tablet 2018-05-13 00:00:00 3 00:00:00 No Strangulated umbilical hernia 50mg Take 1 tab let by mouth 2 times daily as needed for Pain. [facility] levothyroxine (SYNTHROID) 75 mcg tablet 2018-04-15 00:00:00 Yes Cirrhosis of liver with ascites, unspecified hepatic cirrhosis type 75ug QD Take 1 tablet by mouth every morning (before breakfast). [facility] FLUoxetine (PROZAC) 10 mg capsule 2018-04-15 00:00:00 Ye s Mood disorder 10mg QD Take 1 capsule by mouth daily. [facility] acetaminophen-codeine (TYLENOL/CODEINE #3) 300-30 mg per tab let 2018-03-28 00:00:00 2019-02-24 00:00:00 No Strangulated umbilical hernia 1{tbl} Take 1 tablet by mouth every 6 hours as needed for Pain. [facility] blood glucose meter (PRECISION XTRA GLUCOMETER) 2018-03-27 0 0:00:00 Yes New onset type 2 diabetes mellitus Use as directed.. [facility] blood glucose (PRECISION XTRA TEST STRIPS) test strips 2018-03-27 00:00:00 Yes New onset type 2 diabetes mellitus Use 2 times weekly (once per day on Sat,) to test blood sugar. [facility] lancets 28 gauge 2018-03-27 00:00:00 Yes New onset type 2 diabetes mellitus Use 2 times weekly as directed. [facility] Buprenorphine-Naloxone (SUBOXONE) 8-2 mg Subl 2010-07-13 00: [...] bedtime for 4 days then stop medicineDEA: [id number] and [id number]: [id number] [facility] furosemide 40 mg tablet Take 1 tablet every day by ora l route for 90 days. furosemide 40 mg tablet Take 1 tablet every day by oral route for 90 days. No furosemide 40 m g tablet Take 1 tablet every day by oral route for 90 days. [facility] ice glipizide 1/2 pill twice daily glipizide 1/2 pill twice daily No glipizide 1/2 pill twice daily [facility] hydroxyzine HCl 25 mg tablet Take 1 tabl et 3 times a day by oral route for 30 days. hydroxyzine HCl 25 mg tablet Take 1 tabl et 3 times a day by oral route for 30 days. No hydroxyzine HC l 25 mg tablet Take 1 tablet 3 times a day by oral route for 30 days. [facility] lactose (bulk) 3 times daily lactose (bulk) 3 times daily N o lactose (bulk) 3 times daily [facility] ctice levothyroxine 100 mcg tablet Take 1 tablet every day b y oral route. levothyroxine 100 mcg tablet Take 1 tablet every day by oral route. No levothyroxine 100 mcg tablet Take 1 tablet every day b y oral route. [facility] levothyroxine 75 mcg tablet Take 1 tablet every day by oral route. levothyroxine 75 mcg tablet Take 1 tablet every day by oral route. No 1 Q1D levothyroxine 75 mcg tablet Take 1 tablet every day by oral route. [facility] losartan 25 mg tablet Take 1 tablet every day by oral route. losartan 25 mg tablet Take 1 tablet every day by oral route. No losartan 25 mg tablet Take 1 tablet every day by oral route. [facility] potassium chloride ER 10 mEq capsule,ext ended release Take 1 capsule every day by oral route. potassium chloride ER 10 mEq capsule,ext ended release Take 1 capsule every day by oral route. No potassium chloride ER 10 mEq capsule,extended release Take 1 capsule every day by oral route. [facility] spironolactone 100 mg tablet Take 1 tablet every day b y oral route for 90 days. spironolactone 100 mg tablet Take 1 tablet every day by oral route for 90 days. No spironolac tone 100 mg tablet Take 1 tablet every day by [facility] route for [facility]-[address] 1 film every day by sublingual route for 30 days. Suboxone 8 mg-[address] 1 film every day by sublingual route for 30 days. No Suboxone 8 mg-[address] 1 film every day by sublingual route for 30 days. [facility] triamcinolone acetonide 0.1 % topical cr [...] BY TOPICAL ROUTE 2 TIMES PER DAY [facility] Furosemide Furosemide Yes 40 Bedtime [facility] Glipizide Glipizide Yes 2 Twice A Day [facility] Insulin Glargine (Lantus 3ML Pen) 100 Units/1 Ml INJ I nsulin Glargine (Lantus 3ML Pen) 100 Units/1 Ml INJ Yes 10 Every 12 H ours [facility] Lactulose Lactulose Yes 15 Three Times A Day [facility] Levothyroxine Sodium Levothyroxine Sodium Yes 100 Daily [facility] Spironolactone Spironolactone Yes 100 Daily [facility] Immunizations Ordered Immunization Name Filled Immunization Name Date Status Comments Source Tdap (Tetanus Toxoid, Reduced Diphtheria Toxoid And Acellular Pertussis, Absorbed) 2019-01-09 00:00:00 Completed [facility] ealt Influenza, Vaccine<FLUCELVAX>(Multi-Dose) 2019-01-09 00:00 :00 Completed [facility] PPV 23 (Pneumococcal Polysaccharide 23 Valent) 2018-12 00:00:00 [facility] Influenza, Vaccine<FLUCELVAX>(Multi-Dose) 2018-01-06 00:00 :00 [facility] Vital Signs Vital Name Observation Time Observation Value Comments Source Height 2019-07-08 00:00:00 59 [in_i] [facility] BP Diastolic 2019-04-27 00:00:00 96 mm[Hg] [facility] Height 2019-04-27 00:00:00 59 [in_i] [facility] BMI (Body Mass Index) 2019-04-27 00:00:00 21 kg/m2 [facility] BP Systolic 2019-04-27 00:00:00 158 mm[Hg] [facility] Body Weight 2019-04-27 00:00:00 104 [lb_av] [facility] Weight 2019-12-31 14:40:00 105 [lb_av] [facility] BMI (Body Mass Index) 2019-12-31 14:40:00 21.2 kg/m2 [facility] Systolic blood pressure 2019-11-28 11:39:33 112 mm[Hg] [facility] Diastolic blood pressure 2019-11-28 11:39:33 66 mm[facility]Hg[facility] 2019-11-28 11:39:33 78 /min [facility] Body temperature 2019-11-28 11:39:33 36.33 [facility]ya [place] [facility] Respiratory rate 2019-11-28 11:39:33 17 /min [facility] Oxygen saturation in Arterial blood by Pulse oximetry 11-27 11:39:33 100 /min [place] [facility] Body height 2019-11-20 14:15:00 149.9 cm [place] [facility] Body weight 2019-11-20 14:15:00 45.813 kg [place] [facility] BMI 2019-11-20 14:15:00 20.40 kg/m2 [facility] Body Temperature 2019-08-04 11:39:00 97.0 [degF] [facility] Systolic blood pressure 2019-04-02 13:00:00 182 mm[Hg] [facility] Diastolic blood pressure 2019-04-02 13:00:00 95 mm[Hg] [facility] Heart rate 2019-04-02 13:00:00 78 /min [facility] Body temperature 2019-04-02 13:00:00 36.89 [facility] Respiratory rate 2019-04-02 13:00:00 18 /min [facility] Oxygen saturation in Arterial blood by Pulse oximetry 04-02 13:00:00 98 /min [facility] Body height 2019-04-02 08:00:00 149.9 cm Chet Flores [facility] Body weight 2019-04-02 08:00:[address] [facility] BMI 2019-04-02 08:00:00 22.62 kg/m2 [facility] Procedures Procedure Date / Time Performed Performing Clinician Hanane english US guided paracentesis 2019-12-31 00:00:00 [facility] US Abdomen limited 2019-12-17 00:00:00 CAROLANN Iraheta [facility] US guided paracentesis 2019-12-07 00:00:00 [facility] POC GLUCOSE 2019-11-28 11:40:00 Ilene Kmi [facility] POC GLUCOSE 2019-11-28 08:57:00 Ilene Kim [facility] POC GLUCOSE 2019-11-28 08:03:00 Ilene Kim [facility] CBC HEMOGRAM 2019-11-28 05:30:00 Raghav Lopez [facility] BASIC METABOLIC PANEL 2019-11-28 05:30:00 Raghav Lopez n [facility] HEPATIC FUNCTION PANEL 2019-11-28 05:30:00 Raghav Lopez on [facility] ESTIMATED GFR 2019-11-28 05:30:00 Raghav Lopez [facility] POC GLUCOSE 2019-11-28 05:11:00 Ilene Kim [facility] POC GLUCOSE 2019-11-28 02:04:00 Ilene Kim [facility] POC GLUCOSE 2019-11-27 22:10:00 Ilene Kim [facility] POC GLUCOSE 2019-11-27 18:01:00 Ilene Kim [facility] MRI ABDOMEN W WO CONTRAST 2019-11-27 17:08:35 Mya Sanchez [facility] POC GLUCOSE 2019-11-27 11:38:00 Ilene Kim [facility] POC GLUCOSE 2019-11-27 07:52:00 Ilene Kim [facility] BASIC METABOLIC PANEL 2019-11-27 02:31:00 Raghav Lopez [facility] HEPATIC FUNCTION PANEL 2019-11-27 02:31:00 Raghav Lopez on [facility] ESTIMATED GFR 2019-11-27 02:31:00 JohnRaghav kendall [facility] CBC HEMOGRAM 2019-11-27 02:10:00 JohnRodneybruna [place] BLOOD CULTURE, AEROBIC & ANAEROBIC 2019-11-27 02:05:[address] ABDOMEN PELVIS W CONTRAST 2019-11-26 21:52:53 Ilene Kim POC GLUCOSE 2019-11-26 20:41:00 Ilene Kim [facility] POC GLUCOSE 2019-11-26 16:58:00 Ilene Kim Meth odcinthya US ABDOMINAL PARACENTESIS IMAGING 2019-11-26 16:28:13 Mya Glover AEROBIC CULTURE 2019-11-26 16:02:00 Mya Sanchez ANAEROBIC CULTURE 2019-11-26 16:02:00 Mya Sanchez [place] [facility] GRAM STAIN 2019-11-26 16:02:00 Mya Sanchez PROTEIN, MISC FLUID 2019-11-26 16:02:00 Ilene Kim CELL COUNT AND DIFFERENTIAL, BODY FLUID 2019-11-26 16:02:00 Ilene Pace POC GLUCOSE 2019-11-26 12:25:00 Ilene Kim [facility] POC GLUCOSE 2019-11-26 08:31:00 Ilene Kim [facility] CBC HEMOGRAM 2019-11-26 04:30:00 Raghav Lopez Meth odcinthya PROTHROMBIN TIME WITH INR 2019-11-26 04:30:00 Mya Sanchez [facility] BASIC METABOLIC PANEL 2019-11-26 04:00:00 Raghav Lopez [facility] HEPATIC FUNCTION PANEL 2019-11-26 04:00:00 Raghav Lopez [facility] ESTIMATED GFR 2019-11-26 04:00:00 JohnRaghav kendall [facility] POC GLUCOSE 2019-11-25 22:24:00 Ilene Kim LizzieAdalberto [place] POC GLUCOSE 2019-11-25 17:12:00 Julio Ilene [place] POC GLUCOSE 2019-11-25 11:08:00 Kaitlin Kimhonorio [facility] URINE CULTURE 2019-11-25 09:05:00 Kaitlin Kimhonorio SamuelAdalberto [place] [facility] URINALYSIS SCREEN AND MICROSCOPY, WITH REFLEX TO CULTURE 202 09:05:00 Kary Seth [facility] POC GLUCOSE 2019-11-25 08:43:00 Ilene Kim LizzieAdalberto [place] [facility] BLOOD CULTURE, AEROBIC & ANAEROBIC 2019-11-25 06:55:00 Kary Seth [facility] BLOOD CULTURE, AEROBIC & ANAEROBIC 2019-11-25 06:15:00 Kary Seth [facility] MAGNESIUM LEVEL 2019-11-25 04:00:00 Lavern Fleming [facility] PHOSPHORUS LEVEL 2019-11-25 04:00:00 Lavern Fleming Met sharri COMPREHENSIVE METABOLIC PANEL 2019-11-25 04:00:00 Lavern Flemingist BILIRUBIN DIRECT 2019-11-25 04:00:00 Raghav Lopez Met hodcinthya ESTIMATED GFR 2019-11-25 04:00:00 Raghav Lopez [facility] CBC HEMOGRAM 2019-11-25 03:20:00 Raghav Lopez [facility] PROTHROMBIN TIME WITH INR 2019-11-25 03:20:00 Mya Sanchez [facility] POC GLUCOSE 2019-11-24 21:03:00 Ilene Kim LizzieAdalberto [facility] POC GLUCOSE 2019-11-24 15:57:00 Ilene Kim LizzieAdalberto [place] POC GLUCOSE 2019-11-24 11:24:00 Ilene Kim LizzieAdalberto [place] XR CHEST 1 VW PORTABLE 2019-11-24 11:15:33 Kary Seth [facility] POC GLUCOSE 2019-11-24 07:59:00 Ilene Kim LizzieAdalberto [place] CBC HEMOGRAM 2019-11-24 04:22:00 Raghav Lopez [facility] BASIC METABOLIC PANEL 2019-11-24 04:22:00 Raghav Lopez [facility] HEPATIC FUNCTION PANEL 2019-11-24 04:22:00 Raghav Lopez on [facility] HEMOGLOBIN A1C 2019-11-24 04:22:00 JulioIlene [facility] odist ESTIMATED GFR 2019-11-24 04:22:00 Ilene Kim [facility]ist PROTHROMBIN TIME WITH INR 2019-11-24 04:20:00 Mya Sanchez [facility] POC GLUCOSE 2019-11-24 04:00:00 JulioIlene Meth odist POC GLUCOSE 2019-11-23 23:19:00 JulioIlene Meth odist POC GLUCOSE 2019-11-23 20:22:00 JulioIlene Meth odist BASIC METABOLIC PANEL 2019-11-23 17:08:00 Chayo Domingo [facility] ESTIMATED GFR 2019-11-23 17:08:00 JulioIlene Meth odist POC GLUCOSE 2019-11-23 15:50:00 JulioIlene Meth odist POC GLUCOSE 2019-11-23 11:19:00 JulioIlene [facility] XR ABDOMEN 1 VW PORTABLE 2019-11-23 10:48:39 Chayo Domingo [facility] POC GLUCOSE 2019-11-23 07:57:00 Alejo Iqbal [facility] PROTHROMBIN TIME WITH INR 2019-11-23 04:30:00 Mya Sanchez [facility] CBC HEMOGRAM 2019-11-23 04:30:00 Raghav Lopez [facility] ALPHA FETOPROTEIN 2019-11-23 04:00:00 Mya Sanchez [facility] BASIC METABOLIC PANEL 2019-11-23 04:00:00 Raghav Lopez [facility] HEPATIC FUNCTION PANEL 2019-11-23 04:00:00 Raghav Lopez [facility] ESTIMATED GFR 2019-11-23 04:00:00 Mya Sanchez [facility] POC GLUCOSE 2019-11-22 20:21:00 Alejo Iqbal Meth [facility] POC GLUCOSE 2019-11-22 15:49:00 Alejo Iqbal Meth odist POC GLUCOSE 2019-11-22 11:13:00 Alejo Iqbal Meth [facility] POC GLUCOSE 2019-11-22 08:41:00 Alejo Iqbal [facility] COMPREHENSIVE METABOLIC PANEL 2019-11-22 04:00:00 Chayo Domingo [facility] ESTIMATED GFR 2019-11-22 04:00:00 Alejo Iqbal Meth od[facility] POC GLUCOSE 2019-11-22 03:52:00 Alejo Iqbal [facility] HC COMPLETE BLD COUNT W/AUTO DIFF 2019-11-22 03:45:00 Chayo Domingo PROTHROMBIN TIME WITH INR 2019-11-22 03:45:00 Mya Sanchez [facility] POC GLUCOSE 2019-11-21 20:03:00 Alejo Iqbal Meth od[facility] POC GLUCOSE 2019-11-21 15:53:00 Alejo Iqbal Meth odist POC GLUCOSE 2019-11-21 12:22:00 Alejo Iqbal Meth od[facility] POC GLUCOSE 2019-11-21 07:38:00 Alejo Iqbal Meth od[facility] POC GLUCOSE 2019-11-21 04:38:00 Alejo Iqbal [facility] HC COMPLETE BLD COUNT W/AUTO DIFF 2019-11-21 04:20:00 Chayo Domingo [facility] COMPREHENSIVE METABOLIC PANEL 2019-11-21 04:00:00 Chayo Domingo Confucianist LACTIC ACID LEVEL 2019-11-21 04:00:[address] thodist ESTIMATED GFR 2019-11-21 04:00:00 Alejo Iqbal Meth odist HC COMPLETE BLD COUNT W/AUTO DIFF 2019-11-21 00:00:00 Chayo Domingo BASIC METABOLIC PANEL 2019-11-21 00:00:00 Chayo Domingo PROTHROMBIN TIME WITH INR 2019-11-21 00:00:00 Chayo Domingo Confucianist HEPATIC FUNCTION PANEL 2019-11-21 00:00:00 Chayo Domingo on Confucianist ESTIMATED GFR 2019-11-21 00:00:00 Alejo Iqbal Meth odist POC GLUCOSE 2019-11-20 23:20:00 Alejo Iqbal Meth odist XR ABDOMEN 1 VW PORTABLE 2019-11-20 20:22:37 Chayo Domingo Confucianist POC GLUCOSE 2019-11-20 19:59:00 Alejo Iqbal Meth odist LACTIC ACID LEVEL 2019-11-20 19:43:00 Chayo Domingo Me thodist BASIC METABOLIC PANEL 2019-11-20 19:43:00 Chayo Domingo n Confucianist ESTIMATED GFR 2019-11-20 19:43:00 Alejo Iqbal Meth odist SURGICAL PATHOLOGY REQUEST 2019-11-20 18:26:00 Alejo Iqbal NV AN ELECTIVE ENDOTRACHEAL AIRWAY 2019-11-20 17:41:02 Randa Prabhakar REPAIR, HERNIA, INGUINAL 2019-11-20 16:53:00 Kathrine Carlisle POTASSIUM, SYRINGE 2019-11-20 15:28:00 Alejo Iqbal ethodist POC GLUCOSE 2019-11-20 12:18:00 Alejo Iqbal Meth odist POTASSIUM LEVEL 2019-11-20 12:04:00 Alejo Iqbal Meth odist TYPE AND SCREEN 2019-11-20 11:40:00 Chayo Domingo Meth odist POC GLUCOSE 2019-11-20 09:26:00 Alejo Iqbal Meth odist HC COMPLETE BLD COUNT W/AUTO DIFF 2019-11-20 09:02:00 Chayo Domingo Confucianist LACTIC ACID LEVEL 2019-11-20 09:02:[address] thodist LACTIC ACID LEVEL, SEPSIS - NOW AND REPEAT 2X EVERY 3 HOURS 2019-11-20 04:05:00 Javad Gandara POC GLUCOSE 2019-11-20 03:54:00 Kait Rodriguez XR ABDOMEN 1 VW PORTABLE 2019-11-20 02:26:21 [...] Gandara ESTIMATED GFR 2019-11-19 23:34:00 Javad Gandara US guided paracentesis 2019-11-16 00:00:00 [facility] US Abdomen limited 2019-11-09 00:00:00 [facility] US guided paracentesis 2019-11-02 00:00:00 [facility] US guided paracentesis 2019-10-26 00:00:00 [facility] US guided paracentesis 2019-10-19 00:00:00 [facility] POC GLUCOSE 2019-10-09 19:05:[address] marilyodi US ABDOMEN COMPLETE 2019-10-09 15:05:27 DanielMya serrano US ABDOMINAL PARACENTESIS IMAGING 2019-10-09 14:43:00 Keegan Rodriguez AEROBIC CULTURE 2019-10-09 14:20:[address] [facility]odist ANAEROBIC CULTURE 2019-10-09 14:20:00 Aly Ramírez GRAM STAIN 2019-10-09 14:20:[address] thodist ALBUMIN, MISC FLUID 2019-10-09 14:20:00 Aly Ramírez PROTEIN, MISC FLUID 2019-10-09 14:20:00 Aly Ramírez CELL COUNT AND DIFFERENTIAL, BODY FLUID 2019-10-09 14:20:00 Aly Stapleton BLOOD CULTURE, AEROBIC & ANAEROBIC 2019-10-09 11:30:00 Mya Mcguire BLOOD CULTURE, AEROBIC & ANAEROBIC 2019-10-09 11:15:00 Mya Mcguire POC GLUCOSE 2019-10-09 10:02:[address] thodist POC GLUCOSE 2019-10-09 08:43:[address] thodist HC COMPLETE BLD COUNT W/AUTO DIFF [...] Rodriguez Met hodist PHOSPHORUS LEVEL 2019-10-09 05:41:00 Michael Kait Cornejo Me thodist POC GLUCOSE 2019-10-08 23:25:00 Kait Rodriguez Met sharri COVID-19 QUALITATIVE PCR 2019-10-08 22:32:00 Kait Rodriguez COMPREHENSIVE METABOLIC PANEL 2019-10-08 20:55:00 Alonzo Rodriguez HC COMPLETE BLD COUNT W/AUTO DIFF 2019-10-08 20:55:00 Keegan Rodriguez ESTIMATED GFR 2019-10-08 20:55:00 Kait Rodriguez Met sharri US guided paracentesis 2019-09-30 00:00:00 [facility] US guided paracentesis 2019-09-16 00:00:00 [facility] US guided paracentesis 2019-09-01 00:00:00 [facility] Complete non-obstetrical ultrasound of pelvis 2019-08-13 00:00:0 0 [facility] US transvaginal 2019-08-13 00:00:00 [facility] EGD VARICES LIGATION 2019-08-04 00:00:00 [facility] CT of abdomen and pelvis without contrast 2019-08-04 00:00:00 [facility] US guided paracentesis 2019-08-04 00:00:00 [facility] ABD PARACENTESIS W/IMAGING 2019-04-02 12:03:10 Raymond Diggs [facility] GLUCOSE POC 2019-04-02 08:58:00 Bebeto Brown [facility] U/S PELVIS LTD NON-OB 2019-02-26 13:28:55 Bebeto Brown [facility] DUPLEX DOPPLER ABD/PEL VASCULAR STUDY, COMPLETE 2019-02-26 1 3:28:47 Bebeto Brown [facility] GLUCOSE POC 2019-02-24 08:48:00 [facility] Torres [facility] COMPREHENSIVE METABOLIC PANEL 2019-02-24 03:35:00 Mili torres [facility] CBC (WITHOUT DIFFERENTIAL) 2019-02-24 03:35:00 Mili Torres [facility] GLUCOSE POC 2019-02-23 20:36:00 Mili Torres [facility] h CT ABDOMEN AND PELVIS CONTRAST 2019-02-23 18:16:58 Mili Torres [facility] LACTIC ACID 2019-02-23 14:37:00 Mili Torres [facility] h INFUSION PUMP 2019-02-23 14:29:50 Mili Torres [facility] h GLUCOSE POC 2019-02-23 12:56:00 Mili Torres [facility] h GLUCOSE POC 2019-02-23 09:24:00 Mili Torres [facility] h COMPREHENSIVE METABOLIC PANEL 2019-02-23 06:21:00 Brock Uziel Parikh [facility] MAGNESIUM 2019-02-23 06:21:00 Brock Uziel Parikh [facility] CBC/DIFF 2019-02-23 06:21:00 Brock Uziel Parikh [facility] PT/INR 2019-02-23 06:21:00 Brock Uziel Rosenberg [facility] h PTT 2019-02-23 06:21:00 Kemnantoine Uziel Parikh [facility] CBC 2019-02-23 06:21:00 Brock Uziel Parikh [facility] SEQUENTIAL COMPRESSION PUMP 2019-02-23 05:57:31 Brock Uziel Parikh [facility] FLUID CULTURE AND GRAM STAIN 2019-02-23 00:33:00 Wendy Poon [facility] CELL COUNT, FLUID 2019-02-23 00:32:00 Wendy Poon [facility] ALBUMIN, ARD 2019-02-23 00:32:00 Wendy Poon [facility] T PROTEIN, [facility] 2019-02-23 00:32:00 Wendy Poon [facility] GLUCOSE, ARD 2019-02-23 00:32:00 Wendy Poon [facility] LDH, [facility] 2019-02-23 00:32:00 Wendy Poon [facility] CELL COUNT, BODY FLUID 2019-02-23 00:32:00 Wendy Poon [facility] DIFFERENTIAL, CELL COUNT 2019-02-23 00:32:00 Wendy Poon [facility] TROPONIN I POC 2019-02-22 23:18:00 Enedelia Oneil [facility] h TROPONIN I POC 2019-02-22 23:14:00 Enedelia Oneil [facility] h VBG POC 2019-02-22 23:07:00 Enedelia Oneil [facility] h PT/INR 2019-02-22 23:02:00 Grisel Moore [facility] LIVER PROFILE 2019-02-22 23:02:00 Grisel Moore [facility] AMMONIA 2019-02-22 23:02:00 Celina Reyna [facility] BMP POC 2019-02-22 22:27:00 Unknown, Provider [facility] CBC/DIFF 2019-02-22 22:22:00 Grisel Moore [facility] CBC 2019-02-22 22:22:00 Grisel Moore [facility] DIFFERENTIAL, MANUAL-WAM 2019-02-22 22:22:00 [facility]AD [facility]; TRACING ONLY 2019-02-22 22:13:48 Grisel Santillan [facility] HEMOGLOBIN A1C 2019-01-09 15:56:00 Bebeto Brown [facility] DIABETIC FOOT EXAM 2019-01-09 15:16:18 Bebeto Brown [facility] Care Planned Activity Planned Date Details Comments Source Future Scheduled Test 2020-01-10 00:00:00 DM Foot Exam (Year ly) [code = DM Foot Exam (Yearly)] [facility] Scheduled Test 2020-01-10 00:00:00 Hemoglobin A1c christa surement (procedure) [code = 64420421] [facility] Scheduled Test 2019-12-24 00:00:00 IMM Influenza Seas onal Dec to May (>/= 19 yrs) [code = IMM Influenza Seasonal Dec to May (>/= 19 yrs)] [facility] Scheduled Test 2019-10-24 00:00:00 INFLUENZA VACCINE [code = INFLUENZA VACCINE] [facility] Scheduled Test 2019-01-06 00:00:00 Urine screening fo r protein (procedure) [code = 370494214] [facility] Scheduled Test 2019-01-02 00:00:00 DM Retinal Exam (Y early) [code = DM Retinal Exam (Yearly)] [facility] Scheduled Test 2005 00:00:00 BREAST CANCER SCRE ENING [code = BREAST CANCER SCREENING] [facility] Scheduled Test 2005 00:00:00 COLONOSCOPY SCREEN ING [code = COLONOSCOPY SCREENING] [facility] Scheduled Test 2005 00:00:00 SHINGLES VACCINES (#1) [code = SHINGLES VACCINES (#1)] [facility] Scheduled Test 2005 00:00:00 Screening for shanti gnant neoplasm of colon (procedure) [code = 960250410] [facility] Scheduled Test 1995 00:00:00 Breast Cancer Scrn (Yearly) [code = Breast Cancer Scrn (Yearly)] [facility] Scheduled Test 1976-02-17 00:00:00 Screening for shanti gnant neoplasm of cervix (procedure) [code = 835427672] [facility] Scheduled Test 1976-02-17 00:00:00 Screening for shanti gnant neoplasm of cervix (procedure) [code = 933045414] [facility] Scheduled Test 1965 00:00:00 DIABETIC FOOT EXAM [code = DIABETIC FOOT EXAM] [facility] Scheduled Test 1965 00:00:00 URINE MICROALBUMIN [code = URINE MICROALBUMIN] [facility] Scheduled Test 1955 00:00:00 DIABETIC RETINAL E YE EXAM [code = DIABETIC RETINAL EYE EXAM] [facility] Instructions Cellulitis [facility] Instructions Hypokalemia [facility] Encounters Start Date/Time End Date/Time Encounter Type Admission Type [facility] Care Department Encounter ID Source 2018-03-28 12:20:21 Inpatient [facility] [id number] [facility] 2018-03-27 11:42:04 Inpatient [facility] [id number] [facility] 2019-12-31 14:57:00 2019-12-31 14:57:00 Registered Emergency Room [facility] [id number] [facility] 2019-12-31 13:03:00 2019-12-31 13:03:00 Registered Clinic 3 HARRISON LOPEZ [facility] [id number] [facility] 2019-12-17 12:30:00 2019-12-17 12:30:00 Registered Clinic 3 ANKOMA-SEY, [facility] [id number] [facility] 2019-12-07 12:51:00 2019-12-07 12:51:00 Registered Clinic 3 [facility] [id number] [facility] 2019-11-19 00:00:00 2019-11-28 00:00:00 Inpatient [facility] [id number] [facility] 2019-11-16 12:24:00 2019-11-16 12:24:00 Registered Clinic 3 [facility] [id number] [facility] 2019-11-09 12:12:00 2019-11-09 12:12:00 Registered Clinic 3 TROYOMA-FANI, [facility] [id number] [facility] 2019-11-02 12:38:00 2019-11-02 12:38:00 Registered Clinic 3 TROYOMA-FANI, [facility] [id number] [facility] 2019-10-26 12:30:00 2019-10-26 12:30:00 Registered Clinic 3 [facility] [id number] [facility] 2019-10-19 12:45:00 2019-10-19 12:45:00 Registered Clinic 3 ANKOMA-Y, [facility] [id number] [facility] [place] 2019-10-08 00:00:00 2019-10-10 00:00:00 Inpatient ALY [facility] [id number] [facility] 2019-09-30 12:58:00 2019-09-30 12:58:00 Registered Clinic 3 ANKOMA-SEY, [facility] [id number] [facility] [place] 2019-09-16 11:45:00 2019-09-16 11:45:00 Registered Clinic 3 SC[place]-[address] [facility] [id number] [facility] [place] 2019-09-01 13:46:00 2019-09-01 13:46:00 Registered Clinic [address] [facility] [id number] [facility] [place] 2019-08-13 09:43:00 2019-08-13 09:43:00 Registered Clinic [address] [facility] [id number] [facility] 2019-08-04 10:28:00 2019-08-04 10:28:00 Registered Surgical Day Car e [address] [facility] [id number] [facility] 2019-07-08 00:00:00 2019-07-08 00:00:00 Keegan Crystal D: [address] [facility], [facility] [address], [place] [address], Ph. [facility] [id number] [facility] 2019-04-27 00:00:00 2019-04-27 00:00:00 Denisse Martin MD: [address] [place] [address], Ph. [facility] [id number] [facility] 2019-04-20 00:00:00 2019-04-20 00:00:00 Outpatient [facility] [id number] [facility] 2019-04-02 07:12:16 2019-04-02 07:12:16 Outpatient [facility] [id number] [facility] 2019-03-31 00:00:00 2019-03-31 00:00:00 Outpatient [facility] [id number] [facility] 2019-03-10 15:12:17 2019-03-10 15:12:17 Outpatient [facility] [id number] [facility] 2019-03-05 00:00:00 2019-03-05 00:00:00 Outpatient [facility] [id number] [facility] 2019-03-05 00:00:00 2019-03-05 00:00:00 Outpatient [facility] [id number] [facility] 2019-03-03 00:00:00 2019-03-03 00:00:00 Outpatient [facility] [id number] [facility] 2019-02-26 11:07:23 2019-02-26 11:07:23 Outpatient [facility] [id number] [facility] 2019-02-26 11:07:21 2019-02-26 11:07:21 Outpatient [facility] [id number] [facility] 2019-02-23 17:24:32 2019-02-23 17:24:32 Outpatient [facility] [id number] [facility] 2019-02-23 13:03:57 2019-02-23 13:03:57 Outpatient [facility] [id number] [facility] 2019-02-22 22:33:42 2019-02-22 22:33:42 Outpatient [facility] [id number] [facility] 2019-02-10 09:31:53 2019-02-10 09:31:53 Outpatient [facility] [id number] [facility] 2019-01-23 00:00:00 2019-01-23 00:00:00 Outpatient [facility] [id number] [facility] 2019-01-23 00:00:00 2019-01-23 00:00:00 Outpatient [facility] [id number] [facility] 2019-01-21 10:35:55 2019-01-21 10:35:55 Outpatient [facility] [id number] [facility] 2019-01-09 15:56:32 2019-01-09 15:56:32 Outpatient [facility] [id number] [facility] 2019-01-09 14:41:00 2019-01-09 14:41:00 Outpatient [facility] [id number] [facility] 2019-01-09 00:00:00 2019-01-09 00:00:00 Outpatient [facility] [id number] [facility] 2019-01-02 00:00:00 2019-01-02 00:00:00 Outpatient [facility] [id number] [facility] 2018-11-06 16:06:32 2018-11-06 16:06:32 Emergency [facility] [id number] [facility] 2018-11-06 12:21:16 2018-11-06 12:21:16 Emergency [facility] [id number] [facility] 2018-09-19 13:54:52 2018-09-19 13:54:52 Outpatient [facility] [id number] [facility] 2018-09-19 00:00:00 2018-09-19 00:00:00 Outpatient [facility] [id number] [facility] 2018-09-04 00:00:00 2018-09-04 00:00:00 Outpatient [facility] [id number] [facility] 2018-08-28 00:00:00 2018-08-28 00:00:00 Outpatient [facility] [id number] [facility] 2018-07-28 00:00:00 2018-07-28 00:00:00 Outpatient [facility] [id number] [facility] 2018-07-17 00:00:00 2018-07-17 00:00:00 Outpatient [facility] [id number] [facility] 2018-07-15 00:00:00 2018-07-15 00:00:00 Outpatient [facility] [id number] [facility] 2018-07-14 08:57:40 2018-07-14 08:57:40 Outpatient [facility] [id number] [facility] 2018-06-18 13:34:34 2018-06-18 13:34:34 Outpatient [facility] [id number] [facility] 2018-06-18 00:00:00 2018-06-18 00:00:00 Outpatient [facility] [id number] [facility] 2018-06-10 15:37:00 2018-06-10 15:37:00 Outpatient [facility] [id number] [facility] 2018-06-10 13:20:09 2018-06-10 13:20:09 Outpatient [facility] [id number] [facility] 2018-06-03 14:53:50 2018-06-03 14:53:50 Outpatient [facility] [id number] [facility] 2018-04-24 00:00:00 2018-04-24 00:00:00 Emergency [facility] [id number] [facility] 2018-04-16 00:00:00 2018-04-16 00:00:00 Outpatient [facility] [id number] [facility] 2018-04-15 11:35:53 2018-04-15 11:35:53 Outpatient [facility] [id number] [facility] 2018-04-15 10:27:22 2018-04-15 10:27:22 Outpatient [facility] [id number] [facility] 2018-04-11 00:00:00 2018-04-11 00:00:00 Outpatient [facility] [id number] [facility] 2018-04-09 00:00:00 2018-04-09 00:00:00 Outpatient [facility] [id number] [facility] 2018-03-24 20:34:39 2018-03-24 20:34:39 Emergency [facility] [id number] [facility] 2018-03-24 18:15:07 2018-03-24 18:15:07 Emergency [facility] [id number] [facility] 2018-03-24 15:56:34 2018-03-24 15:56:34 Inpatient [facility] [id number] [facility] 2018-03-24 00:00:00 2018-03-24 00:00:00 Emergency [facility] [id number] [facility] 2018-03-24 00:00:00 2018-03-24 00:00:00 Emergency [facility] [id number] [facility] 2018-03-24 00:00:00 2018-03-24 00:00:00 Emergency [facility] [id number] [facility] 2018-03-19 00:00:00 2018-03-19 00:00:00 Outpatient [facility] [id number] [facility] 2018-02-18 00:00:00 2018-02-18 00:00:00 Outpatient [facility] [id number] [facility] 2018-01-31 00:00:00 2018-01-31 00:00:00 Outpatient [facility] [id number] [facility] 2018-01-21 09:59:16 2018-01-21 09:59:16 Outpatient [facility] [id number] [facility] 2018-01-21 00:00:00 2018-01-21 00:00:00 Outpatient [facility] [id number] [facility] 2018-01-20 00:00:00 2018-01-20 00:00:00 Outpatient [facility] [id number] [facility] 2018-01-16 00:00:00 2018-01-16 00:00:00 Outpatient [facility] [id number] [facility] 2018-01-07 03:03:22 2018-01-07 03:03:22 Emergency [facility] [id number] [facility] 2018-01-07 01:47:44 2018-01-07 01:47:44 Emergency [facility] [id number] [facility] 2018-01-07 00:58:42 2018-01-07 00:58:42 Emergency [facility] [id number] [facility] 2018-01-06 21:27:04 2018-01-06 21:27:04 Outpatient [facility] [id number] [facility] 2018-01-06 08:02:33 2018-01-06 08:02:33 Outpatient [facility] [id number] [facility] 2018-01-06 00:00:00 2018-01-06 00:00:00 Emergency [facility] [id number] [facility] 2018-01-02 08:42:41 2018-01-02 08:42:41 Outpatient [facility] [id number] [facility] 2018-01-02 00:00:00 2018-01-02 00:00:00 Outpatient [facility] [id number] [facility] 2017-10-03 00:00:00 2017-10-03 00:00:00 Outpatient [facility] [id number] [facility] 2017-09-11 00:00:00 2017-09-11 00:00:00 Outpatient [facility] [id number] [facility] 2017-09-10 08:45:14 2017-09-10 08:45:14 Outpatient [facility] [id number] [facility] 2017-08-08 00:00:00 2017-08-08 00:00:00 Outpatient [facility] [id number] [facility] 2017-08-05 00:00:00 2017-08-05 00:00:00 Outpatient [facility] [id number] [facility] 2017-07-25 00:00:00 2017-07-25 00:00:00 Outpatient [facility] [id number] [facility] 2017-07-15 00:00:00 2017-07-15 00:00:00 Outpatient [facility] [id number] [facility] 2017-07-08 00:00:00 2017-07-08 00:00:00 Outpatient [facility] [id number] [facility] 2017-07-08 00:00:00 2017-07-08 00:00:00 Outpatient [facility] [id number] [facility] 2017-06-27 11:20:57 2017-06-27 11:20:57 Outpatient [facility] [id number] [facility] 2017-06-13 11:56:32 2017-06-13 11:56:32 Outpatient [facility] [id number] [facility] 2017-06-13 10:51:50 2017-06-13 10:51:50 Outpatient [facility] [id number] [facility] 2017-06-11 14:28:51 2017-06-11 14:28:51 Emergency [facility] [id number] [facility] 2017-06-05 00:00:00 2017-06-05 00:00:00 Outpatient [facility] [id number] [facility] 2017-05-29 09:12:31 2017-05-29 09:12:31 Outpatient [facility] [id number] [facility] 2017-02-08 08:18:16 2017-02-08 08:18:16 Outpatient [facility] [id number] [facility] 2017-01-02 12:21:05 2017-01-02 12:21:05 Outpatient [facility] [id number] [facility] 2017-01-02 09:35:42 2017-01-02 09:35:42 Outpatient [facility] [id number] [facility] 2016-11-14 00:00:00 2016-11-14 00:00:00 Outpatient [facility] [id number] [facility] 2016-11-07 12:54:04 2016-11-07 12:54:04 Outpatient [facility] [id number] [facility] 2016-11-07 07:15:09 2016-11-07 07:15:09 Emergency [facility] [id number] [facility] 2016-11-07 06:39:18 2016-11-07 06:39:18 Emergency [facility] [id number] [facility] 2016-11-07 00:20:32 2016-11-07 00:20:32 Outpatient [facility] [id number] [facility] 2016-10-25 21:18:35 2016-10-25 21:18:35 Emergency [facility] [facility] [id number] [facility] 2016-10-25 19:59:19 2016-10-25 19:59:19 Emergency [facility] [id number] [facility] 2016-10-25 18:22:15 2016-10-25 18:22:15 Emergency [facility] [id number] [facility] 2016-10-25 17:44:25 2016-10-25 17:44:25 Emergency [facility] [id number] [facility] Results Test Description Test Time Test Comments Results Result Comments Source Prothrombin time (PT) in platelet poor plasma by coagu lation assay 2019-12-31 15:00:00 Test Item Prothrombin Time (test code = 5902-2) 17.5 11.9-14.5 [facility] in Platelet poor plasma by Coagulation tcpau9773-80-19 15:00:00* Test Item Value Reference Range Interpretation Comments Prothromb Time International Ratio (test code = 6301-6) 1.36 Oral Anticoagulant Therapy INR Values:1. Low Intensity Therapy 1.5 - 2.02 . Moderate Intensity Therapy 2.0 - 3.03. High Intensity Therapy(1) 2.5 - 3. 54. High Intensity Therapy(2) 3.0 - 4.05. Panic Value INR > 5.0 [facility] sodium measurement (moles/volume)2019-12-31 15:00:00* Test Item Value Reference Range Interpretation Comments Sodium Level (test code = 2951-2) 135 136-145 [facility] potassium measurement (moles/volume)2019-12-31 15:00:00* Test Item Value Reference Range Interpretation Comments Potassium Level (test code = 2823-3) 2.4 3.5-5.1 Results repeated and called to DR. BAY at 1533 on 12/31/19 by ELVER MORALES. Read back and verified.[facility] chloride measurement (moles/volume)2019-12-31 15:00:00* Test Item Value Reference Range Interpretation Comments Chloride Level (test code = 2075-0) 100 98-107 [facility] plasma carbon dioxide, total measurement (moles/volume)2019-12-31 15:00:00* Test Item Value Reference Range Interpretation Comments Carbon Dioxide Level (test code = 2028-9) 27 22-29 [facility] plasma anion bro6432-25-94 15:00:00* Test Item Value Reference Range Interpretation Comments Anion Gap (test code = 56871-6) 10.4 8-16 [facility] plasma urea nitrogen measurement (mass/volume)2019-12-31 15:00:00* Test Item Value Reference Range Interpretation Comments Blood Urea Nitrogen (test code = 3094-0) 8 7-26 [facility] creatinine measurement (mass/volume)2019-12-31 15:00:00* Test Item Value Reference Range Interpretation Comments Creatinine (test code = 2160-0) 0.70 0.57-1.11 [facility] plasma urea nitrogen/creatinine mass szjam8244-07-25 15:00:00* Test Item Value Reference Range Interpretation Comments BUN/Creatinine Ratio (test code = 3097-3) 11 6-25 [facility] PointeEstimated glomerular filtration rate (GFR) jkxxdlzsouuzk2581-73-88 15:00:00* Test Item Value Reference Range Interpretation Comments Estimat Glomerular Filtration Rate (test code = 284754486) > 60 >60 Ranges were taken from the National Kidney Disease Education Program and the [facility] literature.Reference ranges:60 or greater: Fkuctm03-96 ( for 3 consecutive months): Chronic kidney disease 15 or less: Kidney failureB[facility] PointeGlucose antlmkyohsi2822-37-47 15:00:00* Test Item Value Reference Range Interpretation Comments Glucose Level (test code = FGW7783) 159 74-118 [facility] or plasma calcium measurement (mass/volume)2019-12-31 15:00:00* Test Item Value Reference Range Interpretation Comments Calcium Level (test code = 62947-5) 7.7 8.4-10.2 [facility] plasma total bilirubin measurement (mass/volume)2019-12-31 15:00:00* Test Item Value Reference Range Interpretation Comments Total Bilirubin (test code = 1975-2) 1.2 0.2-1.2 [facility] PointeFluoroscopic procedure less than one hour xxfdckjb3709-90-02 15:00:00* Test Item Value Reference Range Interpretation Comments Aspartate Amino Transf (AST/SGOT) (test code = Aspartate Amino Transf (AST/SGOT)) 36 5-34 [facility] or plasma alanine aminotransferase measurement (enzymatic activity/volume)2019-12-31 15:00:00* Test Item Value Reference Range Interpretation Comments Alanine Aminotransferase (ALT/SGPT) (test code = 1742-6) 17 0-55 [facility] or plasma protein measurement (mass/volume)2019-12-31 15:00:00* Test Item Value Reference Range Interpretation Comments Total Protein (test code = 2885-2) 6.8 6.5-8.1 [facility] plasma albumin measurement (mass/volume)2019-12-31 15:00:00* Test Item Value Reference Range Interpretation Comments Albumin (test code = 1751-7) 2.3 3.5-5.0 [facility] PointePlasma globulin measurement (mass/volume) 2019-12-31 15:00:00* Test Item Value Reference Range Interpretation Comments Globulin (test code = 83264-4) 4.5 2.3-3.5 [facility] plasma albumin/globulin mass tyesy6387-79-32 15:00:00* Test Item Value Reference Range Interpretation Comments Albumin/Globulin Ratio (test code = 1759-0) 0.5 0.8-2.0 [facility] or plasma alkaline phosphatase measurement (enzymatic activity/volume)2019-12-31 15:00:00* Test Item Value Reference Range Interpretation Comments Alkaline Phosphatase (test code = 6768-6) 117 40-150 [facility] PointeUS GUIDED OEUMMVGFSIUD5781-67-32 14:17:00 [facility] [address] [place] [address] Patient Name: SUZI SCANLON MR #: [id number] : 1955 Age/Sex: 64/F Req #: [id number] Adm Physician: Ordered by: HARRISON LOPEZ MD Report #: [id number] [place] [facility] [place]: Procedure: [id number] US/US IRVIN DED PARACENTESIS Exam Date: 12/31/19 Exam Time: 1330 [...] one-step, a image was saved. A 5 Polish one-step catheter was inserted and removed from the p eritoneal space and approximately 3.6 liters of yellow ascitic fluid was aspir ated from the abdomen. Specimens were collected for the lab. There were n o immediate complications. Impression: Successful ultrasound guided paracentesis with aspiration of 3.6 liters of fluid. On presentation patient was complaining of right lower extremity swelling and pain. I recommended em ergency room evaluation to the patient. Signed by: Laith Sullivan MD on 2019 2:17 PM Dictated By: LAITH SULLIVAN MD 1417 Transcribed By: MELANIE on 12/31/19 1417 Amari OPY TO: HARRISON LOPEZ M.D. Specimen source identification of body hdnnw7471-25-28 13:44:00* Test Item Value Reference Range Interpretation Comments Body Fluid Type (test code = 09089-9) PERITONEAL [facility] PointeEvaluation of color of body fluid 2019-12-31 13:44:00* Test Item Value Reference Range Interpretation Comments Body Fluid Color (test code = 6824-7) YELLOW [facility] PointeDetermination of appearance of body fluid 2019-12-31 13:44:00* Test Item Value Reference Range Interpretation Comments Body Fluid Appearance (test code = 9335-1) SL.CLOUDY [facility] PointeManual body fluid leukocytes count (number/volume)2019-12-31 13:44:00* Test Item Value Reference Range Interpretation Comments Body Fluid WBC (test code = 6743-9) 56 [facility] PointeManuc [facility] body fluid erythrocytes count (number/volume)2019-12-31 13:44:00* Test Item Value Reference Range Interpretation Comments Body Fluid RBC (test code = 6741-3) 191 [facility]inteBllakes [facility] leukocytes automated count (number/volume)2019-12-31 13:20:00* Test Item Value Reference Range Interpretation Comments White Blood Count (test code = 6690-2) 9.17 4.8-10.8 [facility] erythrocytes automated count (number/volume)2019-12-31 13:20:00* Test Item Value Reference Range Interpretation Comments Red Blood Count (test code = 789-8) 3.39 3.6-5.1 [facility] PointeBlood hemoglobin measurement (moles/volume)2019-12-31 13:20:00* Test Item Value Reference Range Interpretation Comments Hemoglobin (test code = 70048-5) 11.1 12.0-16.0 [facility] PointeAutomated blood hematocrit (volume fraction)2019-12-31 13:20:00* Test Item Value Reference Range Interpretation Comments Hematocrit (test code = 4544-3) 32.9 34.2-44.1 [facility] PointeAutomated erythrocyte mean corpuscular zkxlkw4768-21-80 13:20:00* Test Item Value Reference Range Interpretation Comments Mean Corpuscular Volume (test code = 787-2) 97.1 81-99 [facility] PointeAutomated erythrocyte mean corpuscular hemoglobin (mass per erythrocyte)2019-12-31 13:20:00* Test Item Value Reference Range Interpretation Comments Mean Corpuscular Hemoglobin (test code = 785-6) 32.7 28-32 [facility] PointeAutomated erythrocyte mean corpuscular hemoglobin concentration measurement (mass/volume)2019-12-31 13:20:00* Test Item Value Reference Range Interpretation Comments Mean Corpuscular Hemoglobin Concent (test code = 786-4) 33.7 31-35 [facility] PointeRDW AykLc-Rtu4912-89-08 13:20:00* Test Item Value Reference Range Interpretation Comments Red Cell Distribution Width (test code = 09845-8) 15.0 11.7 -14.4 [facility] PointeAutomated blood platelet count (count/volume)2019-12-31 13:20:00* Test Item Value Reference Range Interpretation Comments Platelet Count (test code = 777-3) 96 140-360 [facility] PointeAutomated blood segmented neutrophil count as percentage of total ityrclupjg8732-96-29 13:20:00* Test Item Value Reference Range Interpretation Comments Neutrophils (%) (Auto) (test code = 87802-6) 86.7 38.7-80.0 [facility] PointeAutomated blood lymphocyte count as percentage ot total ehgisbgbgh8504-02-63 13:20:00* Test Item Value Reference Range Interpretation Comments Lymphocytes (%) (Auto) (test code = 736-9) 6.5 18.0-39.1 [facility] PointeAutomated blood monocyte count as percentage of total tqqsrimhiy1561-86-85 13:20:00* Test Item Value Reference Range Interpretation Comments Monocytes (%) (Auto) (test code = 5905-5) 5.2 4.4-11.3 [facility] PointeAutomated blood eosinophil count as percentage of total warphqauuy9521-52-89 13:20:00* Test Item Value Reference Range Interpretation Comments Eosinophils (%) (Auto) (test code = 713-8) 0.7 0.0-6.0 [facility] PointeAutomated blood basophil count as percentage of total ekvymvljeq0008-64-89 13:20:00* Test Item Value Reference Range Interpretation Comments Basophils (%) (Auto) (test code = 706-2) 0.2 0.0-1.0 [facility] PointeFluoroscopic procedure less than one hour gdbxxlpk4958-05-82 13:20:00* Test Item Value Reference Range Interpretation Comments IM GRANULOCYTES % (test code = IM GRANULOCYTES %) 0.7 0.0- 1.0 [facility] PointeAutomated blood neutrophil count 2019-12-31 13:20:00* Test Item Value Reference Range Interpretation Comments Neutrophils # (Auto) (test code = 751-8) 8.0 2.1-6.9 [facility] PointeBlood lymphocytes count (number/volume) 2019-12-31 13:20:00* Test Item Value Reference Range Interpretation Comments Lymphocytes # (Auto) (test code = 22464-7) 0.6 1.0-3.2 [facility] PointeBlood monocytes automated count (number/volume)2019-12-31 13:20:00* Test Item Value Reference Range Interpretation Comments Monocytes # (Auto) (test code = 742-7) 0.5 0.2-0.8 [facility] PointeAutomated blood eosinophil count 2019-12-31 13:20:00* Test Item Value Reference Range Interpretation Comments Eosinophils # (Auto) (test code = 711-2) 0.1 0.0-0.4 [facility] PointeAutomated blood basophil count (count/volume)2019-12-31 13:20:00* Test Item Value Reference Range Interpretation Comments Basophils # (Auto) (test code = 704-7) 0.0 0.0-0.1 [facility] PointeFluoroscopic procedure less than one hour gfbrltbe5071-57-75 13:20:00* Test Item Value Reference Range Interpretation Comments Absolute Immature Granulocyte (auto (hector t code = Absolute Immature Granulocyte (auto) 0.06 0-0.1 [facility] PointeUS ABDOMEN LEXLUON7079-01-66 13:57:00 [place] [address] Patient Name: SUZI SCANLON MR #: [id number] : 1955 Age/Sex: 64/F Req #: [id number] Adm Physician: Ordered by: HARRISON LOPEZ MD Report #: [id number] Location: Room/Bed: Procedure: [id number] US/US ABD OMEN LIMITED Exam Date: 12/17/19 Exam Time: 1305 REPORT STATUS: Signed EXAM: US ABDO MEN LIMITED DATE: 12/17/2019 1:05 PM INDICATION: ASCITIES COMPARISON: None TECHNIQUE: Transverse and longitudinal oliva scale and color doppler son ographic images of the 4 quadrants were obtained. FINDINGS: Only a sm all amount of fluid is noted within the 4 quadrants, not significant enough fo r large volume paracentesis. Patient was in agreement and would return once th e fluid has increased. IMPRESSION: Limited four-quadrant ultrasound demon strates only a small amount of ascites, not and not for safe or efficacious pa racentesis. Patient will return for large volume paracentesis. Signed by: Laith Sullivan MD on 12/17/2019 1:58 PM Dictated By: LAITH SULLIVAN MD Elec tronically Signed By: LAITH SULLIVAN MD on 12/17/19 1358 Transcribed By: MELANIE on 12/17/19 1358 COPY TO: HARRISON LOPEZ M.D. Capillary blood glucose measurement by glucometer (mass/volume)2019-12-17 12:56:00* Test Item Value Reference Range Interpretation Comments Bedside Glucose (test code = 30736-5) 171 70-120 Meter ID: [id number] [facility]US GUIDED GFINRFVUVXYK4859-89-13 15:30:00 [facility] [address] [place] [address] Patient Name: SUZI SCANLON MR #: [id number] : 1955 Age/Sex: 64/F Req #: [id number] [facility] Physician: Ordered by: HARRISON LOPEZ MD Report #: [id number] Location: Room/Bed: Procedure: US/ IRVIN DED PARACENTESIS Exam Date: 12/07/19 Exam Time: 1434 [...] one-step, a image was saved. A 5 Polish one-step catheter was inserted and removed from the p eritoneal space and approximately 4.05 liters of clear yellow ascitic fluid wa s aspirated from the abdomen. Specimens were collected for the lab. There were no immediate complications. Impression: Successful ultrasound guided paracentesis with aspiration of 4.05 liters of fluid. Signed by: Laith Sullivan MD on 12/07/2019 3:30 PM Dictated By: LAITH SULLIVAN MD Elect ronically Signed By: LAITH SULLIVAN MD on 12/07/191529 Transcribed By: MELANIE on 12/07/191529 COPY TO: HARRISON LOPEZ M.D. Manual body fluid neutrophils/100 rmcdxbcymp9782-18-88 14:46:00* Test Item Value Reference Range Interpretation Comments Body Fluid Neutrophils (test code = 62349-8) 28 [facility] PointeBody fluid lymphocyte yopce2900-23-33 14:46:00* Test Item Value Reference Range Interpretation Comments Body Fluid Lymphocytes (test code = 55480186) 55 [facility] PointeBody fluid monocyte odeyo6747-66-31 14:46:00* Test Item Value Reference Range Interpretation Comments Body Fluid Monocytes (test code = 56789-3) 17 [facility] PointeTotal cell fhljn1536-80-21 14:46:00* Test Item Value Reference Range Interpretation Comments Body Fluid Total Cells Counted (test code = 16013-3) 100 [facility] PointeActivated partial thromboplastin time (aPTT) in platelet poor plasma by coagulation zngfi3260-04-39 13:06:00* Test Item Value Reference Range Interpretation Comments Activated Partial Thromboplast Time (test code = 29497-4) 34.5 23.8-35.5 [facility] PointeBlood culture, aerobic & anaerobic 2019-12-02 06:03:07* Test Item Value Reference Range Interpretation Comments Blood culture isolate (test code = 600-7) No growth after 5 days of incubation. Specimen InformationSpecimen Source: BloodSpecimen Site: UNSPECIFIED [place] MethodistAnaerobic dfllbwg4955-59-36 09:24:22* Test Item Value Reference Range Interpretation Comments Anaerobic culture isolate (test code = 552) No anaerobic organis ms isolated. Specimen InformationSpecimen Source: Per itoneal fluidSpecimen Site: Abdomen [facility] BrownwoodistAerobic vwolrdx7983-57-01 04:57:31* Test Item Value Reference Range Interpretation Comments Aerobic culture isolate (test code = 498) No growth after 3 days. 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 machine operator Interpretation (test code = 63583-3) Abnormal [facility] stdoxtwg1063-78-73 09:37:09* Test Item Value Reference Range Interpretation Comments WBC (test code = 35275-5) 7.78 4.50- 11.00 k/uL RBC (test code = 27791-2) 3.16 m/uL 4.2-5.5 L HGB (test code = 718-7) 10.5 g/dL 12-16 L HCT (test code = 4544-3) 31.0 % 37-47 L MCV (test code = 787-2) 98.1 fL 82-100 MCH (test code = 785-6) 33.2 pg 27-34 MCHC (test code = 786-4) 33.9 g/dL 31-37 RDW - SD (test code = 93789-9) 55.0 fL 37-55 MPV (test code = 89031-1) 13.1 fL 8.8-13.2 Platelet count (test code = 73117-8) 91 150- 400 k/uL L Nucleated RBC (test code = 02591-9) 0.30 /100 WBC Lab Interpretation (test code = 27959-9) Abnormal [place] MethodistBasic metabolic orwgn3898-88-82 07:11:20* Test Item Value Reference Range Interpretation Comments Sodium (test code = 2951-2) 138 135- 148 mEq/L Potassium (test code = 2823-3) 3.3 3.5- 5.0 mEq/L L Chloride (test code = 2075-0) 102 98- 112 mEq/L CO2 (test code = 2027-9) 25 24- 31 mEq/L Anion gap (test code = 00376-5) 11@ANIO 7- 15 mEq/L BUN (test code = 3094-0) 6 mg/dL 8-23 L Creatinine (test code = 2160-0) 0.58 mg/dL 0.5-0.9 Glucose (test code = 2345-7) 66 mg/dL 65-99 Calcium (test code = 90466-4) 8.5 mg/dL 8.8-10.2 L Lab Interpretation (test code = 93656-1) Abnormal [place] MethodistHepatic function qkllm7832-50-29 07:11:20* Test Item Value Reference Range Interpretation Comments Albumin (test code = 1751-7) 2.7 g/dL 3.5-5 L Total bilirubin (test code = 1974-2) 1.1 mg/dL 0-1.2 Bilirubin direct (test code = 1968-7) 0.4 mg/dL 0-0.3 H Alkaline phosphatase (test code = 6768-6) 116 U/L 35-104 H Protein (test code = 2885-2) 6.2 g/dL 6.3-8.3 L - 4.6- 7.0 g/dL1 week 4.4-7.6 g/dL7 months-1year 5.1-7.3 g/dL1-2 years 5.6-7.5 g/dL>3 years 6.0-8.0 g/zE66-938 6.3-8.3 g/dL ALT (test code = 1742-6) 14 U/L 5-50 AST (test code = 1920-8) 29 U/L 10-35 Lab Interpretation (test code = 91017-6) Abnormal [place] MethodistEstimated BCO5003-81-60 07:11:20* Test Item Value Reference Range Interpretation Comments Estimated GFR (test code = 5488) >=90 mL/min/1.73 m2 Catergory Units InterpretationG1 >=90 Normal or highG2 60-89 Mildly tvscqufexK5q 45-59 Mildly to moderately cbkacslqmV6c 30-44 Moderately to severely decreasedG4 15-29 Severely decreasedG5 <15 Kidney failureThe eGFR was calculated using the Chronic Kidney Disease Epidemiology Collaboration (CKD-EPI) equation. Interpretation is based on recommendations of the National Kidney Foundation-Kidney Disease Outcomes Quality Initiative (NKF-KDOQI) published in 2014. [place] ConfucianistMRI Abdomen W Wo Hnikriey9775-58-65 18:47:01Hm Interface, Radiology Results 11/27/2019 6:50 PM [...] biju h follow-up liver protocol CT or MRI.HMRM-KCHMAG9AmzjfhsNexus [facility] Hospital Houstonurgical pathology nrjvpnr1363-49-88 18:12:26* Test Item Value Reference Range Interpretation Comments Case number (test code = 9539000) [id number] Surgical pathology report (test code = 2255) See link below for PDF Lab Report Result status (test code = 2518340) This is Final Report for [id number] [facility] TylerGram wefhx1980-11-03 07:43:50Gram stain isolateFew WBC'sNo organisms seen Comment: Specimen InformationSpecimen Source: Peritoneal fluidSpecimen Site: Abdomen [facility] MethodC[facility] Abdomen Pelvis W Vnppaggk1931-15-59 23:12:12Hm Interface, Radiology Results 11/26/2019 11:15 PM [...] to exclude enteritis/colitis is advised. Question of gastritis.[facility]-[id number] [facility] MethodistCell count and differential, body aojnx7492-88-55 21:49:53* Test Item Value Reference Range Interpretation Comments [facility] fluid type (test code = 15979-1) Paracentesis Color, fluid (test code = 6824-7) Yellow Appearance, fluid (test code = 9335-1) Clear RBC, fluid (test code = 45513-3) SEE COMMENT /CMM 1+ (0 - 500 RBC/CMM) Nucleated cells, fluid (test code = 88119-3) 229 /CMM Fluid mononuclear cell (test code = 1407) See Diff Neutrophils, fluid (test code = 68281-0) 21 % Lymphocytes, fluid (test code = 76316-1) 7 % Mesothelial cells, fluid (test code = 66629-5) 1 % Macrophages, fluid (test code = 87979-4) 69 % Plasma cells, fluid (test code = 85859-2) 2 % [place] Methodunm sandoval [facility] medical centerProtein, dominican hospitalc ukywc8277-92-41 20:56:05* Test Item Value Reference Range Interpretation Comments Fluid type (test code = 73698-7) Paracentesis Protein, fluid (test code = 2881-1) 1.0 g/dL The reference interval(s) and other method performance specifications have not been established for this body fluid. The test results must be integrated into the clinical context for interpretation.This test has been modified from the manufacturers instructions. The performance characteristics were determined by [facility] in a manner consistent with CLIA requirements. This test has not been cleared or approved by the U.S. Food and Drug Administration. [facility] Abdominal Paracentesis Gvrbbci8408-65-20 18:28:02Hm Interface, Radiology Results 11/26/2019 6:31 PM [...] prepared and draped using all elements of [facility] sterile barrier technique including sterile gloves, [...] applied.Additional details:Estimated blood loss: Less than 10 [facility]- [id number] MethodistProthrombin time with FLH2931-67-18 05:27:10* Test Item Value Reference Range Interpretation Comments Prothrombin time (test code = 5902-2) 18.8 11.5- 14.5 sec H INR (test code = 47408-6) 1.6 Th e International Normalized Ratio (INR) is a therapeutic monitoring tool for patients who are stable on oral anticoagulant therapy. An INR of 2.0-3.0 is suggested for deep vein thrombosis/pulmonary embolism. Lab Interpretation (test code = 26117-9) Abnormal [place] MethodistUrine iketmsn7263-85-87 10:45:16* Test Item Value Reference Range Interpretation Comments Urine culture (test code = 3136255) SEE COMMENT Bacteriuria screen negative. [place] MethodistUrinalysis screen and microscopy, with reflex to culture 2019-11-25 10:45:14* Test Item Value Reference Range Interpretation Comments Specimen site (test code = 3283970) Clean catch Color, UA (test code = 5778-6) Angeline Appearance, UA (test code = 5767-9) Clear Specific gravity, UA (test code = 5811-5) 1.031 1.001-1.035 pH, UA (test code = 5803-2) 5.0 5.0-8.5 Protein, UA (test code = 00098-8) 1+ Negative A Glucose, UA (test code = 55041-0) Negative Negative Ketones, UA (test code = 2514-8) Negative Negative Bilirubin, UA (test code = 5770-3) Positive@UBIL Negative A Blood, UA (test code = 5794-3) Negative Negative Nitrite, UA (test code = 5802-4) Negative Negative Urobilinogen, UA (test code = 39680-6) 4.0 <2.0 A Leukocyte esterase, UA (test code = 5799-2) Negative Negative Epithelial cells, UA (test code = 5787-7) 3 /HPF WBC, UA (test code = 5821-4) 1 0- 4 /HPF RBC, UA (test code = 19964-5) 1 0- 5 /HPF Bacteria, UA (test code = 70226-0) None seen None seen Yeast, UA (test code = 21256-3) Few A Yeast with pseudohyphae, UA (test code = 24833-5) None seen Hyaline casts, UA (test code = 5796-8) 3 /LPF Lab Interpretation (test code = 86181-1) Abnormal [place] [facility]Com[facility] metabolic djoey2464-44-73 04:51:30* Test Item Value Reference Range Interpretation Comments Sodium (test code = 2951-2) 137 135- 148 mEq/L Potassium (test code = 2823-3) 3.3 3.5- 5.0 mEq/L L Chloride (test code = 2075-0) 100 98- 112 mEq/L CO2 (test code = 2027-9) 23 24- 31 mEq/L L Anion gap (test code = 09488-0) 14@ANIO 7- 15 mEq/L BUN (test code = 3094-0) 9 mg/dL 8-23 Creatinine (test code = 2160-0) 0.58 mg/dL 0.5-0.9 Glucose (test code = 2345-7) 131 mg/dL 65-99 H Calcium (test code = 26288-1) 7.4 mg/dL 8.8-10.2 L Protein (test code = 2885-2) 5.4 g/dL 6.3-8.3 L - 4.6- 7.0 g/dL1 week 4.4-7.6 g/dL7 months-1year 5.1-7.3 g/dL1-2 years 5.6-7.5 g/dL>3 years 6.0-8.0 g/xZ68-513 6.3-8.3 g/dL Albumin (test code = 1751-7) 2.4 g/dL 3.5-5 L A/G ratio (test code = 1759-0) 0.8 0.7-3.8 Alkaline phosphatase (test code = 6768-6) 68 U/L 35-104 AST (test code = 1920-8) 29 U/L 10-35 ALT (test code = 1742-6) 12 U/L 5-50 Total bilirubin (test code = 1974-) 1.6 mg/dL 0-1.2 H Lab Interpretation (test code = 21771-0) Abnormal [place] MethodistBilirubin vydvpj4815-82-46 04:51:30* Test Item Value Reference Range Interpretation Comments Bilirubin direct (test code = 1967-) 0.7 mg/dL 0-0.3 H Lab Interpretation (test code = 05076-7) Abnormal [place] MethodistMagnesium cmzba5850-11-15 04:51:30* Test Item Value Reference Range Interpretation Comments Magnesium (test code = 38849-6) 1.5 mg/dL 1.6-2.4 L Lab Interpretation (test code = 40627-2) Abnormal [place] MethodistPhosphorus bxrkc6346-30-12 04:51:27* Test Item Value Reference Range Interpretation Comments Phosphorus (test code = 2777-1) 2.0 mg/dL 2.4-4.5 L Lab Interpretation (test code = 12112-0) Abnormal [place] MethodistXR Chest 1 Vw Bwwisofw0175-77-09 11:39:07Hm Interface, Radiology Results 11/24/2019 11:42 AM CDTEXAMINATION: XR CHEST 1 VW PORTABLECLINICAL HISTORY: r o atelactasis vs pneumoniaCOMPARISON: [...] calcified atherosclerotic disea se.The bones are unremarkable. [facility]-[id number] MethodistHemoglobin A1c 2019-11-24 08:07:49* Test Item Value Reference Range Interpretation Comments Hemoglobin A1C (test code = 56857-4) 5.8 % 4-5.6 H HbA1c cutoffs for diagnosing diabetes:4.0% - 5.6% = normal5.7% - 6.4% = increased risk for diabetes (prediabetes)9>=6.5% = fmrujssn8Idway for glycemic control (ADA 2016)< 7.0% Target for non adults with diabetes. More or less stringent targets may be appropriate for individual patients. <7.5% Target for Children and adolescents with type 1 diabetes. Lab Interpretation (test code = 73761-4) Abnormal [place] MethodistXR Abdomen 1 Vw Uuwhzqlp0214-68-26 12:55:13Hm Interface, Radiology Results 11/23/2019 12:58 PM [...] no plain fi lm evidence of free air.[facility]0XD89254PGAtueszf MethodistAlpha fetoprotein 2019-11-23 05:54:41* Test Item Value Reference Range Interpretation Comments Alpha fetoprotein (test code = 81856-8) 6.0 ng/mL 0-8.3 The Fred 8000 AFP immunoassay was used. Results obtained with different assay methods or kits should not be used interchangeably and may be different. [facility] with platelet and rqfhnggjdiqp0810-26-89 05:30:55* Test Item Value Reference Range Interpretation Comments WBC (test code = 84052-6) 6.45 4.50- 11.00 k/uL RBC (test code = 39067-2) 3.08 m/uL 4.2-5.5 L HGB (test code = 718-7) 10.1 g/dL 12-16 L HCT (test code = 4544-3) 31.3 % 37-47 L MCV (test code = 787-2) 101.6 fL 82-100 H MCH (test code = 785-6) 32.8 pg 27-34 MCHC (test code = 786-4) 32.3 g/dL 31-37 RDW - SD (test code = 30671-9) 56.0 fL 37-55 H MPV (test code = 73297-5) 12.6 fL 8.8-13.2 Platelet count (test code = 30798-8) 77 150- 400 k/uL L Nucleated RBC (test code = 97653-0) 0.00 /100 WBC Neutrophils (test code = 83823-3) 80.2 % 39-69 H Lymphocytes (test code = 13578-9) 9.6 % 25-45 L Monocytes (test code = 57726-6) 8.8 % 0-10 Eosinophils (test code = 06542-0) 0.9 % 0-5 Basophils (test code = 17246-0) 0.2 % 0-1 Immature granulocytes (test code = 68438-6) 0.3 % 0-1 "Immature granulocytes" (promyelocytes, myelocytes, metamyelocytes) Lab Interpretation (test code = 48147-4) Abnormal [place] MethodistLactic acid dhllx3255-32-35 06:22:56* Test Item Value Reference Range Interpretation Comments Lactic acid (test code = 50808-9) 2.9 mmol/L 0.5-2.2 H Lab Interpretation (test code = 61310-1) Abnormal [place] RnxhtinbmCymuyx8133-39-97 17:41:02Randa Prabhakar CRNA 11/20/2019 5:45 PMAirwayDate/Time: 11/20/2019 5:05 PMPerformed by: Randa Prabhakar CRNAAuthorized by: Allen Loco MD Location: ORUrgency: ElectiveDifficult Airway: No Anesthesiologist: Allen Loco MDResident/CHICHI/AA: Randa Prabhakar CRNAPerformed by: resident/COAT IRONER HAND/AAPreoxygenated with 100% O2: Yes C-spine Precautions Maintained [...] X 1 with Pastor 2 blade by COAT IRONER HAND; grade I view obtained. 7.0 ETT advanced through vocal cords with direct visualization, cuff to occlusive seal, placement confirmed with bilateral chest rise, +mist in ETT, and +etCO2. Atraumatic intubation-lips and gums (patient edentulous). OGT easily placed for case duration, stomach decompressed, and OGT placed to gravity. [place] MethodistPotassium, fflynpb1600-20-14 15:46:56* Test Item Value Reference Range Interpretation Comments Potassium, syringe (test code = 2007) 3.2 3.5- 5.0 mEq/L L Lab Interpretation (test code = 75106-6) Abnormal [place] MethodistType and linedp0946-14-44 12:55:00* Test Item Value Reference Range Interpretation Comments ABO grouping (test code = 883-9) O Rh type (test code = 99368-5) POS Antibody screen (gel) (test code = 890-4) NEG [place] MethodistPotassium tdzmq9153-59-81 12:29:58* Test Item Value Reference Range Interpretation Comments Potassium (test code = 2823-3) 2.8 3.5- 5.0 mEq/L LL Lab Interpretation (test code = 72305-7) Abnormal [place] MethodistLactic acid level, SEPSIS - Now and repeat 2x every 3 hours 2019-11-20 05:19:56* Test Item Value Reference Range Interpretation Comments Lactic acid (test code = 56628-6) 2.8 mmol/L 0.5-2.2 H Lab Interpretation (test code = 71184-6) Abnormal [place] MethodistCOVID-19 qualitative NZU8951-76-93 03:11:13* Test Item Value Reference Range Interpretation Comments Interpretation (test code = 3855153) Negative results do not preclude 2019-nCoV infection and should not be used as the sole basis for treatment or other patient management decisions. Negative results must be combined with clinical observations, patient history, and epidemiological information. COVID-19 qualitative PCR result (test code = 74479-8) Not-Detect ed Not-Detected COVID-19 qualitative PCR (test code = 7070) See link below for P DF Lab Report [place] MethodistAmmonia axgao8305-67-01 01:12:46* Test Item Value Reference Range Interpretation Comments Ammonia (test code = 1841-6) 66 umol/L 11-51 H Lab Interpretation (test code = 77777-6) Abnormal [place] MethodistAlcohol level, kebfp2426-07-11 00:43:26* Test Item Value Reference Range Interpretation Comments Alcohol percent (test code = 5643-2) None Detected % Normal None DetectedLegal Intoxication in [place] 80 mg/dL (0.08%) - Whole BloodToxic Concentration 200 mg/dL (0.2%)Potentially Fatal 350 - 500 mg/dL (0.35 - 0.5%) [place] MethodistLipase dukju3721-12-29 00:43:26* Test Item Value Reference Range Interpretation Comments Lipase (test code = 3040-3) 14 U/L 13-60 [place] MethodistPartial thromboplastin time, hykmechly6163-30-04 00:03:18* Test Item Value Reference Range Interpretation Comments PTT (test code = 07138-0) 33.9 23.0- 36.0 sec PTT therapeutic range for unfractionated heparin is61.0-112.0 seconds which corresponds to Anti-Xa0.3-0.7 U/ml. [place] MethodistUS GUIDED VOAQYCYPUKGE9379-94-32 14:27:00 [place] [address] Patient Name: SUZI SCANLON MR #: [id number] : 1955 Age/Sex: 64/F Req #: [id number] Adm Physician: Ordered by: HARRISON LOPEZ MD Report #: [id number] Location: Room/Bed: Procedure: [id number] / IRVIN DED PARACENTESIS Exam Date: 11/16/19 Exam [...] one-step, a image was saved. A 5 Polish one-step catheter was inserted and removed from the p eritoneal space and approximately 3.1 liters of clear yellow ascitic fluid was aspirated from the abdomen. There were no immediate complications. Impression: Successful ultrasound guided paracentesis with aspiration of 3 .1 liters of fluid. Signed by: Laith Sullivan MD on 11/16/2019 2:28 PM Dictated By: LAITH SULLIVAN MD 27 COPY TO: HARRISON VERGARA M.D. Body fluid other cells manual sopwq1310-93-86 13:56:00* Test Item Value Reference Range Interpretation Comments Body Fluid Other Cells (test code = 984425726) 16 [facility]CROPHAGES [facility] MGUIJNC0448-97-38 14:49:00 [place] [address] Patient Name: SUZI SCANLON MR #: [id number] : 1955 Age/Sex: 64/F Req #: [id number] Adm Physician: Ordered by: HARRISON LOPEZ MD Report #: [id number] Location: US Room/Bed: Procedure: US/US ABD OMEN LIMITED Exam Date: 11/09/19 [...] US GUIDED PARACENTESIS 2019-11-02 15:59:00 [place] [address] Patient Name: SUZI SCANLON MR #: [id number] : 1955 Age/Sex: 64/F Req #: [id number] Adm Physician: Ordered by: HARRISON LOPEZ MD Report #: [id number] Location: Room/Bed: Procedure: US/US IRVIN DED PARACENTESIS Exam Date: 11/02/19 Exam Time: 1321 REPORT STATUS: Signed PROCEDURE: Ultrasound-guided paracentesis Procedural Personnel Attending physician (s): Dealno Weber MD Pre-procedure diagnosis: Ascites Post-procedure diagn [...] 3:59 PM Dictated By: DELANO WEBER MD 504 Transcribed By: MELANIE on 11/02/19 975 COPY TO: HARRISON LOPEZ M.D. Body fluid eosinophil ocyqpqtamc7782-50-47 13:31:00* Test Item Value Reference Range Interpretation Comments Body Fluid Eosinophils (test code = 45173-5) 2 [facility] GUID[facility] TSPMYBIYCLJZ6887-08-60 14:02:00 [place] [address] Patient Name: SUZI SCANLON MR #: [id number] : 1955 Age/Sex: 64/F Req #: [id number] Adm Physician: Ordered by: HARRISON LOPEZ MD Report #: [id number] Location: [facility] o/Bed: Procedure: US/ IRVIN DED PARACENTESIS Exam Date: 10/26/19 Exam [...] 2:03 PM Dictated By: DELANO WEBER MD 02 Transcribed By: MELANIE on 10/26/19 140 COPY TO: HARRISON LOPEZ M.D. US GUIDED JWCUJLJSYAKS5622-20-70 14:48:00 [place] [address] Patient Name: SUZI SCANLON MR #: [id number] : 1955 Age/Sex: 64/F Req #: [id number] Adm Physician: Ordered by: HARRISON LOPEZ MD Report #: [id number] Location: Room/Bed: Procedure: [id number] US/US IRVIN DED PARACENTESIS Exam Date: 10/19/19 Exam [...] written. Signed by: Delano Weber MD on 10/19/2019 3:08 PM Dictated By: DELANO WEBER MD 3655 Transcribed By: MELANIE on 10/19/19 6204 COPY TO: HARRISON LOPEZ M.D. Fluoroscopic procedure less than one hour kuaekhmu6056-44-80 13:07:00* Test Item Value Reference Range Interpretation Comments Differential Total Cells Counted (test code = Dae westbrookl Total Cells Counted) 100 [facility] PointeManual blood neutrophils/100 leukocytes 2019-10-19 13:07:00* Test Item Value Reference Range Interpretation Comments Neutrophils % (Manual) (test code = 80067-4) 76 40-74 [facility] blood lymphocytes/100 leukocytes 2019-10-19 13:07:00* Test Item Value Reference Range Interpretation Comments Lymphocytes % (Manual) (test code = 737-7) 19 19-48 [facility] monocytes/100 leukocytes 2019-10-19 13:07:00* Test Item Value Reference Range Interpretation Comments Monocytes % (Manual) (test code = 744-3) 5 3.4-9.0 [facility]inteBlood platelets count by estimate (number/volume)2019-10-19 13:07:00* Test Item Value Reference Range Interpretation Comments Platelet Estimate (test code = 70546-1) MODERATELY DECREASED [facility] PointePlatelet rpndvkynya9597-29-21 13:07:00* Test Item Value Reference Range Interpretation Comments Platelet Morphology Comment (test code = 09884-3) FEW LARGE [facility] PointeBlood polychromasia detection by light ruftnljmlc5405-67-17 13:07:00* Test Item Value Reference Range Interpretation Comments Polychromasia (test code = 56771-5) [facility]W [facility] hypochromia detection by light lstnoqvylx1106-00-99 13:07:00* Test Item Value Reference Range Interpretation Comments Hypochromasia (test code = 728-6) SLIG [facility] PointeRB cnkmlepyvk5257-77-13 13:07:00* Test Item Value Reference Range Interpretation Comments Red Cell Morphology Comment (test code = 6742-1) NORMAL [facility] PointeAlbumin, misc dbrpa2345-05-60 16:41:33* Test Item Value Reference Range Interpretation Comments Fluid type (test code = 90267-7) Ascitic Albumin, fluid (test code = 1747-5) 0.5 g/dL The reference interval(s) and other method performance specifications have not been established for this body fluid. The test results must be integrated into the clinical context for interpretation.This test has been modified from the manufacturers instructions. The performance characteristics were determined by [facility] in a manner consistent with CLIA requirements. This test has not been cleared or approved by the U.S. Food and Drug Administration. [facility] Abdomen Gygqsoob8314-73-80 16:25:10Hm Interface, Radiology Results 10/09/2019 4:28 PM [...] ascites. No sonographic Leos sign.3.Other findings as above1RM1RAD_PS01Houencompass [facility] MethodistT4, free 2019-10-09 07:13:07* Test Item Value Reference Range Interpretation Comments T4, free (test code = 3024-7) 1.5 ng/dL 0.9-1.7 [facility] TylerThyroid stimulating yhyulef9157-93-52 07:13:07* Test Item Value Reference Range Interpretation Comments TSH (test code = 3016-3) 0.59 0.27- 4.20 uIU/mL [facility] TylerUS GUIDED DZFIGVXSKDKG9375-41-35 15:27:00 [facility] [address] [place] [address] Patient Name: SUZI SCANLON MR #: [id number] : 1955 Age/Sex: 64/F Req #: [id number] [facility] Physician: Ordered by: HARRISON LOPEZ MD Report #: [id number] Location: Room/Bed: Procedure: US/ IRVIN DED PARACENTESIS Exam Date: 09/30/19 Exam [...] 09/30/19 1528 COPY TO: HARRISON VENCES M.D. Body fluid basophil zwqssyzmvv8371-09-83 14:09:00* Test Item Value Reference Range Interpretation Comments Body Fluid Basophils (test code = 91228-0) See Comment Moderate Mesotheial cells are found on slideCHI [facility] Flower MoundUS GUIDED SDUIYGNOHLXY6585-07-28 12:51:00 [place] [address] Patient Name: SUZI SCANLON MR #: [id number] : 1955 Age/Sex: 64/F Req #: [id number] Adm Physician: Ordered by: HARRISON LOPEZ MD Report #: [id number] Location: US Room/Bed: Procedure: [id number] US/US IRVIN DED PARACENTESIS Exam Date: 09/16/19 Exam Time: 1211 REPORT STATUS: Signed Procedure: Ultrasound-guided paracentesis pbx operator: Nelson Saucedo MD Pre- operative diagnosis: [...] COPY TO: HARRISON LOPEZ M.D. US GUIDED GPBWHSKAOEGL7624-14-97 15:51:00 [place] [address] Patient Name: SUZI SCANLON MR #: [id number] : 1955 Age/Sex: 64/F Req #: [id number] Adm Physician: Ordered by: ADAM GALLARDO MD Report #: [id number] Location: Room/Bed: Procedure: 8527-7303 US/US GUIDED P ARACENTESIS Exam Date: 09/01/19 Exam Time: 1427 REPORT STATUS: Signed Procedure: Ult rasound-guided paracentesis pbx operator: Tripp Hammer M.D. Pre- operative diagnosis: [...] 15 51 Transcribed By: MELANIE on 09/01/19 9160 COPY TO: ADAM GALLARDO MD Body fluid glucose measurement (mass/volume)2019-09-01 15:02:00* Test Item Value Reference Range Interpretation Comments Body Fluid Glucose (test code = 2344-0) 178 [facility] PointeBody fluid protein measurement (mass/volume)2019-09-01 15:02:00* Test Item Value Reference Range Interpretation Comments Body Fluid Total Protein (test code = 2881-1) < 0.8 [facility] PointeBody fluid lactate dehydrogenase measurement (enzymatic activity/volume)2019-09-01 15:02:00* Test Item Value Reference Range Interpretation Comments Body Fluid Lactate Dehydrogenase (test code = 597622284) 33 No reference range has been established for this specimen type.[facility] PointeBody fluid amylase measurement (enzymatic activity/volume)2019-09-01 15:02:00* Test Item Value Reference Range Interpretation Comments Body Fluid Amylase (test code = 1795-4) 15 No reference range has been established for this specimen type.[facility] PointeBody fluid triglyceride measurement (mass/volume) 2019-09-01 15:02:00* Test Item Value Reference Range Interpretation Comments Body Fluid Triglycerides (test code = 35572-7) 19 Not Est ab. The reference intervals and other method performancespecifications have not been established for this test. Thetest result should be integrated into the clinical contextfor interpretation.The reference interval(s) and other method performance specificationshave not been established for this body fluid. The test result must beintegrated into the clinical context for interpretation.Performed at: - [facility] [id number] Director: Diego hopkins MD, Phone: [phone] [facility] PointeBody fluid albumin measurement (mass/volume)2019-09-01 15:02:00* Test Item Value Reference Range Interpretation Comments Body Fluid Albumin (test code = 1747-5) 0.3 Not Estab. The reference intervals and other method performancespecifications have not been established for this test. Thetest result should be integrated into the clinical contextfor interpretation.The reference interval(s) and other method performance specificationshave not been established for this body fluid. The test result must beintegrated into the clinical context for interpretation.[facility] PointeFluoroscopic procedure less than one hour duration 2019-09-01 15:02:00* Test Item Value Reference Range Interpretation Comments Body Fluid Total Bilirubin (test code = Body Fluid Total Bilirubin) <0.2 RESULT: <0.2mg/dLINTERPRETIVE INFORMATION: Bilirubin, Total, Body FluidFor information on body fluid reference ranges and/or interpretive guidance visit http://[employer]/bodyfluids/Test developed and characteristics determined by [facility] [employer]. See Compliance Statement B: [employer]/[facility] AlicepH bdjfwotzixy4661-21-63 15:02:00* Test Item Value Reference Range Interpretation Comments Body Fluid pH (test code = 44748-7) 7.9 Not Estab. The reference interval(s) and other method performance specificationshave not be en established for this body fluid. The test result must beintegrated into the c linical context for interpretation.Performed at: [place] [id number] [place], [place] [id number] Director: Sandra Pretty MD, Phone: [phone] [facility] MoundBody fluid lipase measurement (enzymatic activity/volume)2019-09-01 15:02:00* Test Item Value Reference Range Interpretation Comments Peritoneal Fluid Lipase (test code = 34222-0) 13 U/L INTERPRETIVE INFORMATION: Lipase, FluidFor information on body fluid referen ce ranges and/or interpretive guidance visit http://[employer]/bodyfluids/Test developed and characteristics determined by [facility]. See Compliance Sta tement B: [employer]/CSCHI [facility] Hospital Flower MoundUS PELVIS COMPLETE NON KM5602-35-66 10:50:00 [place] [address] Patient Name: SUZI SCANLON MR #: [id number] : 1955 Age/Sex: 64/F Req #: [id number] Adm Physician: Ordered by: ADAM GALLARDO MD Report #: [id number] Location: US Room/Bed: Procedure: [id number] US/US PELVIS C OMPLETE NON OB Exam Date: 08/13/19 Exam Time: 1002 REPORT STATUS: Signed Ultrasound female pelvis Clinical [...] 10:54 AM Dictated By: SANTIAGO WHIPPLE MD 1313 Transcribed By: MELANIE on 08/19/19 1313 COPY TO: ADAM ORTEGA MD YYYQCIMXRTXN4750-39-56 10:50:00 [place] [address] Patient Name: SUZI SCANLON MR #: [id number] : 1955 Age/Sex: 64/F Req #: [id number] Adm Physician: Ordered by: ADAM GALLARDO MD Report #: [id number] Location: US Room/Bed: Procedure: [id number] US/US TRANSVAG INAL Exam Date: 08/13/19 Exam [...] AM Dictate d By: SANTIAGO WHIPPLE MD 1313 COPY TO: LINETTE GALLARDO MD CT ABDOMEN/PELVIS FF8616-73-09 09:18:00 [place] [address] Patient Name: SUZI SCANLON MR #: [id number] : 1955 Age/Sex: 64/F Req #: [id number] Adm Physician: Ordered by: ADAM GALLARDO MD Report #: [id number] Location: OR Room/Bed: Procedure: [id number] CT/CT ABDOMEN/ PELVIS WO Exam Date: 08/04/19 [...] 08/05/19931 COPY TO: ADAM GALLARDO MD PROTHROMBIN FPIU4892-96-68 16:50:00* Test Item Value Reference Range Interpretation [...] Mechanical prosthetic heart valves (2.5-3.5) THROMBOPLASTIN TIME RTNVIJZ7384-40-21 16:50:00* Test Item Value Reference Range Interpretation Comments THROMBOPLASTIN TIME PARTIAL (test code = PTT) 40.8 seconds 25.0-36. 5 H NOYLJIQLAP0197-54-01 16:50:00* Test Item Value Reference Range Interpretation Comments FIBRINOGEN (test code = FIB) 100 mg/dL 200-400 L FIBRIN SPLIT SQAPDBA4497-65-09 16:50:00* Test Item Value Reference Range Interpretation Comments FIBRIN SPLIT PRODUCT (test code = FSP) TEST NOT PERFORMED mcg/mL < 5 N-JYEGA0850-62SOEEP7430-16-02 16:50:00* Test Item Value Reference Range Interpretation Comments D-DIMER (test code = DDIMER) 5166.00 ng/mLFEU 0-500 HH Results called to [id number] results verified and read back by Nurse? [...] TEST NOT PERFORMED % 75- 135 PROTHROMBIN FCKW1179-85-34 16:43:00* Test Item Value Reference Range Interpretation [...] Mechanical prosthetic heart valves (2.5-3.5) THROMBOPLASTIN TIME HFYRFEU5262-65-24 16:43:00* Test Item Value Reference Range Interpretation Comments THROMBOPLASTIN TIME PARTIAL (test code = PTT) 38.0 seconds 25.0-36. 5 H GHENCDHKXW7547-04-77 16:43:00* Test Item Value Reference Range Interpretation Comments FIBRINOGEN (test code = FIB) 106 mg/dL 200-400 L FIBRIN SPLIT QYLGXTK9944-90-63 16:43:00* Test Item Value Reference Range Interpretation Comments FIBRIN SPLIT PRODUCT (test code = FSP) TEST NOT PERFORMED mcg/mL < 5 K-JUBEY4113-76VSXUJ8023-04-01 16:43:00* Test Item Value Reference Range Interpretation Comments D-DIMER (test code = DDIMER) 4562.00 ng/mLFEU 0-500 HH Results called to [email or web address] by [email or web address] 06/02/19 0337Critical results verified and read back [...] NOT PERFORMED % 75- 135 US GUIDED VNYUBBOBXPOI2220-50-55 15:11:00 [facility] [address] [place] [address] Patient Name: SUZI SCANLON MR #: [id number] : 1955 Age/Sex: 64/F Req #: [id number] Adm Physician: Ordered by: ADAM GALLARDO MD Report #: [id number] Location: OR Room/Bed: Procedure: [id number] US/US GUIDED P ARACENTESIS Exam Date: 08/04/19 Exam Time: 1439 REPORT STATUS: Signed Procedure: Ult rasound-guided paracentesis pbx operator: Nelson Saucedo MD Pre-ope rative diagnosis: [...] 10:55 AM Dictated By: DELANO WEBER MD 1057 Transcribed By: MELANIE on 08/05/191054 COPY TO: ADAM GALLARDO MD Fluoroscopic procedure less than one hour rgrmilps3436-39-53 10:20:00 * Test Item Value Reference Range Interpretation Comments Coronavirus (PCR) (test code = Coronavirus (PCR)) NOT DETECTED NOTD ETECTED SARS-COV-2 (COVID19), HIGHRISK, RT-PCRNegative results do not preclude SARS-CoV- 2 infection and should not be used as the sole basis for patient management deci sions. Negative results must be combined with clinical observations, patient his tory, and epidemiological information. Optimum specimen types and timing for pea k viral levels during infections caused by SARS-CoV-2 have not been determined. Collection of multiple specimens ot types of specimens may be necessary to detec t virus. Improper specimen collection and handling, sequence variability under p rimers/probes, or organism present below the limit of detection may lead to fals e negative results. Positive and negative predictive values of testing are highl y dependent on prevalance. False negative test results are more likely when prev alence is high.The expected result is negative (not detected).The SARS-CoV-2 hector t is intended for the qualitative detection of nucleic acid from SARS-CoV-2 in n asopharyngeal and oropharyngeal swab samples from patients who meet COVID-19 cli nical and or epidemiological criteria. For lower respiratory tract specimens, th e assay is submitted for authoriztion by FDA under an Emergency Use Authorizatio n (EUA). Testing methodology is real time RT-PCR. If received as separate collec tion devices, nasopharygeal and oropharyngeal specimens are combined for analysi s. Additional specimens may be split to a separate accession for analysi and rep orting as this test includes a single unit of service.Test results must be corre lated with clinical presentation and evaluated in the context of other laborator y and epidemiologic data. Test performance can be affected because the epidemiol ogy and clinical spectrum of infection caused by SARS-CoV-2 is not fully known. For example, the optimum types of specimens to collect and when during the cours e of infection these specimens are most likely to contain detectable viral RNA m ay not be known.This test has not been Food and Drug Administration (FDA) cleare d or approved and has been authorized by FDA under an Emergency Use Authorizatio n (EUA). The test is only authorized for the duration of the declaration that ci rcumstances exist justifying the authorization of emergency use of in vitro diag nostic tests for detection and/or diagnosis of SARS-CoV-2 under section 564(b) o f the Act, 21 U.S.C. section 360bbb-3(b)(1), unless the authorization is termina sheryl or revoked sooner. [facility] are certified under the C linical Laboratory Improvement Amendments of 1988 (CLIA), 42 U.S.C. section 263a , to perform high complexity tests.Specimen sent to [facility] and testing performed by [facility] [address] [place] [address] [phone] Director: Brenton Glover M.D.CLIA # [id number] [facility] 07:55:00* Test Item Value Reference Range Interpretation Comments GLUBED (test code = GLUBED) 104 mg/dL 74-106 N Performed by certified solder deposit operator at [facility] BASIC METABOLIC [id number] 06:11:00* Test Item Value Reference Range Interpretation [...] code = CA) 7.4 mg/dL 8.5-10.1 L [id number] 06:11:00* Test Item Value Reference Range Interpretation Comments PHOSPHORUS (test code = PHOS) 2.4 mg/dL 2.5-4.9 L [id number] 06:11:00* Test Item Value Reference Range Interpretation Comments MAGNESIUM (test code = MAG) 2.0 mg/dL 1.8-2.4 N BASIC METABOLIC [id number] 06:08:00* Test Item Value Reference Range Interpretation [...] CALCIUM (test code = CA) mg/dL 8.5-10.1 [id number] 06:08:00* Test Item Value Reference Range Interpretation Comments PHOSPHORUS (test code = PHOS) mg/dL 2.5-4.9 [id number] 06:08:00* Test Item Value Reference Range Interpretation Comments MAGNESIUM (test code = MAG) mg/dL 1.8-2.4 CBC W/AUTO [id number] 06:07:00* Test Item Value Reference Range Interpretation [...] = MDIFF) NO, ONLY SCAN NEEDED DIFFERENTIAL [id number] 06:07:00* Test Item Value Reference Range Interpretation [...] (test code = PLTMORPH) NORMAL CBC W/AUTO [id number] 05:41:00* Test Item Value Reference Range Interpretation [...] = MDIFF) NO, ONLY SCAN NEEDED DIFFERENTIAL [id number] 05:41:00* Test Item Value Reference Range Interpretation Comments STAIN ACCEPTABILITY (test code = STN ACCEPTABLE) CABOT RINGS (test code = CAB) MORPHOLOGY COMMENT (test code = MOC) PLATELET ESTIMATE (test code = PLTEST) PLATELET MORPHOLOGY (test code = PLTMORPH) CBC W/AUTO [id number] 05:41:00* Test Item Value Reference Range Interpretation [...] = MDIFF) NO, ONLY SCAN NEEDED DIFFERENTIAL [id number] 05:41:00* Test Item Value Reference Range Interpretation Comments STAIN ACCEPTABILITY (test code = STN ACCEPTABLE) MORPHOLOGY COMMENT (test code = MOC) PLATELET ESTIMATE (test code = PLTEST) PLATELET MORPHOLOGY (test code = PLTMORPH) CBC W/AUTO [id number] 05:40:00* Test Item Value Reference Range Interpretation [...] = MDIFF) NO, ONLY SCAN NEEDED DIFFERENTIAL [id number] 05:40:00* Test Item Value Reference Range Interpretation Comments STAIN ACCEPTABILITY (test code = STN ACCEPTABLE) CABOT RINGS (test code = CAB) MORPHOLOGY COMMENT (test code = MOC) PLATELET ESTIMATE (test code = PLTEST) PLATELET MORPHOLOGY (test code = PLTMORPH) CBC W/AUTO [id number] 05:40:00* Test Item Value Reference Range Interpretation [...] = MDIFF) NO, ONLY SCAN NEEDED DIFFERENTIAL [id number] 05:40:00* Test Item Value Reference Range Interpretation Comments STAIN ACCEPTABILITY (test code = STN ACCEPTABLE) CABOT RINGS (test code = CAB) MORPHOLOGY COMMENT (test code = MOC) PLATELET ESTIMATE (test code = PLTEST) PLATELET MORPHOLOGY (test code = PLTMORPH) CBC W/AUTO [id number] 05:37:00* Test Item Value Reference Range Interpretation [...] # (test code = BA#) K/mm3 0.0-0.2 [id number] 20:48:00* Test Item Value Reference Range Interpretation Comments GLUBED (test code = GLUBED) 205 mg/dL 74-106 H Performed by certified solder deposit operator at [facility] [id number] 16:40:00* Test Item Value Reference Range Interpretation Comments GLUBED (test code = GLUBED) 132 mg/dL 74-106 H Performed by certified solder deposit operator at [facility] [id number] 12:03:00* Test Item Value Reference Range Interpretation Comments GLUBED (test code = GLUBED) 169 mg/dL 74-106 H Performed by certified solder deposit operator at [facility] [id number] 08:17:00* Test Item Value Reference Range Interpretation Comments GLUBED (test code = GLUBED) 90 mg/dL 74-106 N Performed by certified solder deposit operator at [facility] [id number] 21:38:00* Test Item Value Reference Range Interpretation Comments GLUBED (test code = GLUBED) 256 mg/dL 74-106 H Performed by certified solder deposit operator at [facility] [id number] 18:16:00* Test Item Value Reference Range Interpretation Comments GLUBED (test code = GLUBED) 210 mg/dL 74-106 H Performed by certified solder deposit operator at [facility] CBC W/AUTO [id number] 11:26:00* Test Item Value Reference Range Interpretation [...] = MDIFF) NO, ONLY SCAN NEEDED DIFFERENTIAL [id number] 11:26:00* Test Item Value Reference Range Interpretation Comments STAIN ACCEPTABILITY (test code = STN ACCEPTABLE) STAIN ACCEPTABLE ANISOCYTOSIS (test code = ANISO) 1+ MACROCYTOSIS (test code = MACR) 1+ PLATELET ESTIMATE (test code = PLTEST) DECREASED PLATELET MORPHOLOGY (test code = PLTMORPH) APPEAR LARGE BASIC METABOLIC [id number] 10:48:00* Test Item Value Reference Range Interpretation [...] CA) 7.5 mg/dL 8.5-10.1 L BASIC METABOLIC [id number] 10:48:00* Test Item Value Reference Range Interpretation [...] CA) 7.5 mg/dL 8.5-10.1 L CBC W/AUTO [id number] 10:14:00* Test Item Value Reference Range Interpretation [...] = MDIFF) NO, ONLY SCAN NEEDED DIFFERENTIAL [id number] 10:14:00* Test Item Value Reference Range Interpretation Comments STAIN ACCEPTABILITY (test code = STN ACCEPTABLE) CABOT RINGS (test code = CAB) MORPHOLOGY COMMENT (test code = MOC) PLATELET ESTIMATE (test code = PLTEST) PLATELET MORPHOLOGY (test code = PLTMORPH) CBC W/AUTO [id number] 10:14:00* Test Item Value Reference Range Interpretation [...] = MDIFF) NO, ONLY SCAN NEEDED DIFFERENTIAL [id number] 10:14:00* Test Item Value Reference Range Interpretation Comments STAIN ACCEPTABILITY (test code = STN ACCEPTABLE) CABOT RINGS (test code = CAB) MORPHOLOGY COMMENT (test code = MOC) PLATELET ESTIMATE (test code = PLTEST) PLATELET MORPHOLOGY (test code = PLTMORPH) CBC W/AUTO [id number] 10:14:00* Test Item Value Reference Range Interpretation [...] = MDIFF) NO, ONLY SCAN NEEDED DIFFERENTIAL [id number] 10:14:00* Test Item Value Reference Range Interpretation Comments STAIN ACCEPTABILITY (test code = STN ACCEPTABLE) MORPHOLOGY COMMENT (test code = MOC) PLATELET ESTIMATE (test code = PLTEST) PLATELET MORPHOLOGY (test code = PLTMORPH) CBC W/AUTO [id number] 10:14:00* Test Item Value Reference Range Interpretation [...] = MDIFF) NO, ONLY SCAN NEEDED DIFFERENTIAL [id number] 10:14:00* Test Item Value Reference Range Interpretation Comments STAIN ACCEPTABILITY (test code = STN ACCEPTABLE) CABOT RINGS (test code = CAB) MORPHOLOGY COMMENT (test code = MOC) PLATELET ESTIMATE (test code = PLTEST) PLATELET MORPHOLOGY (test code = PLTMORPH) [id number] 08:24:00* Test Item Value Reference Range Interpretation Comments GLUBED (test code = GLUBED) 90 mg/dL 74-106 N Performed by certified solder deposit operator at [facility] [id number] 05:54:00* Test Item Value Reference Range Interpretation Comments GLUBED (test code = GLUBED) 82 mg/dL 74-106 N Performed by certified solder deposit operator at [facility] [id number] 19:57:00* Test Item Value Reference Range Interpretation Comments GLUBED (test code = GLUBED) 214 mg/dL 74-106 H Performed by certified solder deposit operator at [facility] [id number] 16:35:00* Test Item Value Reference Range Interpretation Comments GLUBED (test code = GLUBED) 323 mg/dL 74-106 H Performed by certified solder deposit operator at [facility] [id number] 12:21:00* Test Item Value Reference Range Interpretation Comments GLUBED (test code = GLUBED) 332 mg/dL 74-106 H Performed by certified solder deposit operator at [facility] [id number] 08:45:00* Test Item Value Reference Range Interpretation Comments GLUBED (test code = GLUBED) 296 mg/dL 74-106 H Performed by certified solder deposit operator at [facility] [id number] 21:55:00* Test Item Value Reference Range Interpretation Comments GLUBED (test code = GLUBED) 261 mg/dL 74-106 H Performed by certified solder deposit operator at [facility] [id number] 16:42:00* Test Item Value Reference Range Interpretation Comments GLUBED (test code = GLUBED) 225 mg/dL 74-106 H Performed by certified solder deposit operator at [facility] - SP PARACENTESIS W [id number] 13:30:00 Name: SUZI SCANLON [facility] : 1955 Age/S: 64 / F [address] Unit #: [id number] Loc: [place] [address] Phys: Ramon Lemons MD Acct: [id number] Dis Date: Status: ADM IN PHONE #: [phone] Exam Date: 06/08/2019 1318 FAX #: [phone] Reason: / EXAMS: CPT CODE: [id number] SP PARACENTESIS W IMAGE 78203 Fluoro Time: DAP (Gy m2): Air Kerma (mGy): REASON FOR EXAM: Ascites EXAM ORDER DATE: 06/08/2019 1:01 PM Ordering: Ramon Lemons MD Attending:Ramon Lemons MD Location:[facility] PROCEDURE: Ultrasound guided paracentesis CPT code: 55197, 46459 FINDINGS: After informed consent was obtained, the [...] guide wire was inserted and an 8 Polish drainage catheter was inserted in the abdominal cavity. 6.9 L of fluid obtained. The catheter was removed and hemostasis obtained. Samples were submitted for lab analysis. MEDICATIONS: None COMPLICATIONS: None. Blood loss: less than 5cc. IMPRESSION: 6.9 L of fluid removed from the abdomen. at 1330 Reported and signed by: Fred Isaacs M.D. CC: Ramon Lemons MD Technologist: RT PAOLA Trnscb Date/Time: 06/08/2019 (5405) Ibrahima Orig Print D/T: S: 06/08/2019 (0663) PAGE 1 Signed Report CBC W/AUTO [id number] 13:11:00* Test Item Value Reference Range Interpretation [...] = MDIFF) NO, ONLY SCAN NEEDED DIFFERENTIAL [id number] 13:11:00* Test Item Value Reference Range Interpretation Comments STAIN ACCEPTABILITY (test code = STN ACCEPTABLE) STAIN ACCEPTABLE POLYCHROMASIA (test code = POLC) 1+ POIKILOCYTOSIS (test code = POIK) 2+ ANISOCYTOSIS (test code = ANISO) 2+ MACROCYTOSIS (test code = MACR) 2+ ANNITA CELLS (test code = ANNITA) 2+ NONE PLATELET ESTIMATE (test code = PLTEST) DECREASED PLATELET MORPHOLOGY (test code = PLTMORPH) NORMAL [id number] 12:28:00* Test Item Value Reference Range Interpretation Comments GLUBED (test code = GLUBED) 247 mg/dL 74-106 H Performed by certified solder deposit operator at [facility] PROTHROMBIN [id number] 11:32:00* Test Item Value Reference Range Interpretation [...] (2.5-3.5) IS PATIENT ON ANTICOAGULANTS? NTHROMBOPLASTIN TIME [id number] 11:32:00* Test Item Value Reference Range Interpretation Comments THROMBOPLASTIN TIME PARTIAL (test code = PTT) 35.4 seconds 25.0-36. 5 N IS PATIENT ON ANTICOAGULANTS? NCBC W/AUTO [id number] 11:20:00* Test Item Value Reference Range Interpretation [...] = MDIFF) NO, ONLY SCAN NEEDED DIFFERENTIAL [id number] 11:20:00* Test Item Value Reference Range Interpretation Comments STAIN ACCEPTABILITY (test code = STN ACCEPTABLE) CABOT RINGS (test code = CAB) MORPHOLOGY COMMENT (test code = MOC) PLATELET ESTIMATE (test code = PLTEST) PLATELET MORPHOLOGY (test code = PLTMORPH) CBC W/AUTO [id number] 11:20:00* Test Item Value Reference Range Interpretation [...] = MDIFF) NO, ONLY SCAN NEEDED DIFFERENTIAL [id number] 11:20:00* Test Item Value Reference Range Interpretation Comments STAIN ACCEPTABILITY (test code = STN ACCEPTABLE) MORPHOLOGY COMMENT (test code = MOC) PLATELET ESTIMATE (test code = PLTEST) PLATELET MORPHOLOGY (test code = PLTMORPH) CBC W/AUTO [id number] 11:20:00* Test Item Value Reference Range Interpretation [...] = MDIFF) NO, ONLY SCAN NEEDED DIFFERENTIAL [id number] 11:20:00* Test Item Value Reference Range Interpretation Comments STAIN ACCEPTABILITY (test code = STN ACCEPTABLE) MORPHOLOGY COMMENT (test code = MOC) PLATELET ESTIMATE (test code = PLTEST) PLATELET MORPHOLOGY (test code = PLTMORPH) CBC W/AUTO [id number] 11:20:00* Test Item Value Reference Range Interpretation [...] = MDIFF) NO, ONLY SCAN NEEDED DIFFERENTIAL [id number] 11:20:00* Test Item Value Reference Range Interpretation Comments STAIN ACCEPTABILITY (test code = STN ACCEPTABLE) CABOT RINGS (test code = CAB) MORPHOLOGY COMMENT (test code = MOC) PLATELET ESTIMATE (test code = PLTEST) PLATELET MORPHOLOGY (test code = PLTMORPH) [id number] 08:43:00* Test Item Value Reference Range Interpretation Comments GLUBED (test code = GLUBED) 239 mg/dL 74-106 H Performed by certified solder deposit operator at [facility] [id number] 16:20:00* Test Item Value Reference Range Interpretation Comments GLUBED (test code = GLUBED) 277 mg/dL 74-106 H Performed by certified solder deposit operator at [facility] [id number] 12:13:00* Test Item Value Reference Range Interpretation Comments GLUBED (test code = GLUBED) 251 mg/dL 74-106 H Performed by certified solder deposit operator at [facility] [id number] 08:40:00* Test Item Value Reference Range Interpretation Comments GLUBED (test code = GLUBED) 288 mg/dL 74-106 H Performed by certified solder deposit operator at [facility] - CT ABD PELVIS [id number] 20:49:00 [facility] 1955 [facility] 64 / F [address] [facility] Unit #: [id number] Loc: [place] [address] Phys: Ramon Lemons MD Acct: [id number] Dis Date: Status: ADM IN PHONE #: [phone] Exam Date: 06/06/2019 1650 FAX #: [phone] Reason: STAT PLEASE EXAMS: CPT CODE: [id number] CT ABD PELVIS W/CONT 57274 HISTORY: STAT PLEASE TECHNIQUE: Immediate and delayed [...] 1 Signed Report (CONTINUED) Name: SUZI SCANLON [facility] : 1955 Age/S: 64 / F [address] [facility] Unit #: [id number] Loc: [place] [address] Phys: Ramon Lemons MD Acct: [id number] Dis Date: Status: ADM IN PHONE #: [phone] Exam D ate: 06/06/2019 1650 FAX #: [phone] Reason: STAT PLEASE EXAMS: CPT CODE: [id number] CT ABD PELVIS W/CONT 37949 <Continued> Patchy bibasilar airspace opacification. Small right pleural effusion. Correlate with clinical evidence of pneumonia. LOCATION: [place] at 2048 Reported and signed by: Juli Montes De Oca D.O. CC: Ramon Lemons MD Technologist:Nakia Galeana RT(R),CT CTDI: DLP: Trnscb Date/Time: 06/06/2019 (2048) [email or web address] Orig Print D/T: S: 06/06/2019 (2051) PAGE 2 Signed Report - US ABDOMEN [id number] 19:45:00 Name: SUZI SCANLON [facility] : 1955 Age/S: 64 / F [address] [facility] Unit #: [id number] Loc: [place] [address] Phys: Ramon Lmeons MD Acct: [id number] Dis Date: Status: ADM IN PHONE #: [phone] Exam Date: 06/06/2019 1910 FAX #: [phone] Reason: SEVERE ASCITES/SOB/RESP DISTRESS EXAMS: CPT CODE: [id number] ABDOMEN LTD 66650 CLINICAL HISTORY: SEVERE ASCITES TECHNIQUE: Static grayscale images from limited sonographic survey the abdomen for detection of ascites. COMPARISON: None IMPRESSION: Large ascites observed within all 4 quadrants. Fluid appears simple. LOCATION: [place] at 1944 Reported and signed by: Juli Montes De Oca D.O. CC: Ramon Lemons MD Technologist: KARYNA ORR US Trnscb Date/Time: 06/06/2019 (1944) [email or web address] Orig Print D/T: S: 06/06/2019 (1947) Probe: PAGE 1 Signed Report [id number] 06:17:00* Test Item Value Reference Range Interpretation Comments TRIGLYCERIDES (test code = TRIG) 86 mg/dL 20-150 N Are CHOL,TRIG & HDL ordered? [id number] 20:46:00* Test Item Value Reference Range Interpretation Comments GLUBED (test code = GLUBED) 266 mg/dL 74-106 H Performed by certified solder deposit operator at [facility] FLUID,[id number] 17:37:00 RUN DATE: 06/05/19 [place] - Lab PAGE 1 RUN TIME: 1737 Specimen Inqui ry RUN USER: INTERFACE PATIENT: SUZI SCANLON ACCT #: [id number] LOC: [place] U #: [id number] AGE/SX: 64/F ROOM: [facility] RE05/30/19REG DR: Ramon Lemons MD : 55 BED: A DIS: STATUS: ADM IN TLOC: SPEC #: [id number] RECD: 06/03/19 STATUS: PAWEL ZAVALA #: [id number] JERONIMO: 06/03/19- DR: Kinza Ireland MD ENTERED: 06/03/19 SP TYPE: FL ASCITES OTHR DR: Virginia Salma shaniqua or Family Physician Reshma Crowder MD, Shahid MDORDERED: GROSS COPIES TO: No Primary or Family Physician Reshma Dixon MD [address] [place] [id number] [place] Gar[address] [place] [address] Kinza Ireland MD [address] [place], [place] [address] PROCEDURES: FILIBERTO (-151) TISSUES: ASCITES FLUID - 8 CC CLEAR CLINICAL HISTORY COLLECTION DATE: 06/03/19 ASCITES, CIRRHOSIS, DM2 FINAL DIAGNOSIS Ascites fluid for cytology, paracentesis: MESOTHELIAL CELLS AND WHITE BLOOD CELLS NEGATIVE FOR MALIGNANCY DMDavid/gia D 63913, 99113 CONTINUED ON NEXT PAGE RUN DA TE: 06/05/19 [facility] PAG E 2 RUN TIME: 1737 Specimen Inquiry RUN USER: INTERFACE SPEC #: [id number] PATIENT: SUZI SCANLON #[id number] (Continued) MACROSCOPIC The specimen is designated as "ascites fluid" and consists of 8 cc of clear fluid for concent ration and evaluation. A cell block is prepared. GROSS PERFORMED AT [facility] [address] [place] [address] (p)[phone] MICROSCOPIC All of the s tains, including any controls performed, stain appropriately. MICROSCOPI C PERFORMED AT [facility] [address] [place] [address] [phone] PERFORMING SITE Di agnosis performed at: [facility] [address] [place] [address] Signed SIGNATURE ON FILE Marina Lundberg MD 06/05/19 1737 END OF REPORT [id number] 17:29:00* Test Item Value Reference Range Interpretation Comments GLUBED (test code = GLUBED) 245 mg/dL 74-106 H Performed by certified solder deposit operator at [facility] [id number] 12:28:00* Test Item Value Reference Range Interpretation Comments GLUBED (test code = GLUBED) 230 mg/dL 74-106 H Performed by certified solder deposit operator at [facility] LIPID PROFILE (CORONARY RISK)2019-06-05 11:52:00* Test Item [...] This LDL result is a direct measurement.========= [id number] 11:47:00* Test Item Value Reference Range Interpretation Comments GLYCOSYLATED HEMOGLOBIN (HA1C) (test code = GLYHGB) 5.8 % HbA1 SUGGESTED DIAGNOSIS: HbA1C (%) Diabetic >6.4Prediabetes 5.7 - 6.4Normal <5.7 ESTIMATED AVERAGE GLUCOSE (test code = EAG) 120 MG/DL [id number] 08:03:00* Test Item Value Reference Range Interpretation Comments GLUBED (test code = GLUBED) 237 mg/dL 74-106 H Performed by certified solder deposit operator at [facility] BASIC METABOLIC [id number] 02:40:00* Test Item Value Reference Range Interpretation [...] CA) 7.2 mg/dL 8.5-10.1 L CBC W/AUTO [id number] 01:48:00* Test Item Value Reference Range Interpretation [...] code = NRBC#) 0.04 K/mm3 0.0-0.1 N [id number] 18:52:00* Test Item Value Reference Range Interpretation Comments GLUBED (test code = GLUBED) 224 mg/dL 74-106 H Performed by certified solder deposit operator at [facility] [id number] 16:09:00* Test Item Value Reference Range Interpretation Comments GLUBED (test code = GLUBED) 234 mg/dL 74-106 H Performed by certified solder deposit operator at [facility] [id number] 16:09:00* Test Item Value Reference Range Interpretation Comments GLUBED (test code = GLUBED) 227 mg/dL 74-106 H Performed by certified solder deposit operator at [facility] BODY FLUID CELL CT/[id number] 13:48:00* Test Item Value Reference Range Interpretation [...] Reviewed by Pathologist, JENN CHASE M.D.06/04/19REVIEWED FLUID [id number] 13:48:00* Test Item Value Reference Range Interpretation Comments FLUID PH (test code = PHFL) 7.0 6.8-7.6 N FLUID [id number] 13:48:00* Test Item Value Reference Range Interpretation Comments FLUID GLUCOSE (test code = GLUFL) 153 mg/dL FLUID [id number] 13:48:00* Test Item Value Reference Range Interpretation Comments FLUID PROTEIN (test code = PROTFL) 0.5 gram/dL FLUID [id number] 13:48:00* Test Item Value Reference Range Interpretation Comments FLUID LDH (test code = LDHFL) 43 IUnit/L - SP PARACENTESIS W [id number] 12:39:00 Name: SUZI SCANLON [facility] : 1955 Age/S: 64 / F [address] Unit #: [id number] Loc: [place] [address] Phys: Kinza Ireland MD Acct: [id number] Dis Date: Status: ADM IN PHONE #: [phone] Exam Date: 06/03/2019 1238 FAX #: [phone] Reason: / EXAMS: CPT CODE: [id number] SP PARACENTESIS W IMAGE 86624 Fluoro Time: DAP (Gy m2): Air Kerma [...] administered and using sonographic guidance an 8 Polish pigtail catheter was inserted into the peritoneal cavity. 5 L of ascites fluid were drained and samples were sent to the lab. The drainage catheter was then removed. No complications. IMPRESSION: Successful ultrasound-guided paracentesis. Location code: [facility] at 1239 Re ported and signed by: Jonatan Diaz M.D. CC: Kinza Ireland MD Technologist: JONNY PATEL [facility] Trnscb Date/Time: 06/04/2019 (1239) [email or web address] Orig Print D/T: S: 06/04/2019 (0367) PAGE 1 Signed Report BASIC METABOLIC PANEL [...] CA) 7.2 mg/dL 8.5-10.1 L CBC W/AUTO [id number] 02:12:00* Test Item Value Reference Range Interpretation [...] code = NRBC#) 0.04 K/mm3 0.0-0.1 N [id number] 20:31:00* Test Item Value Reference Range Interpretation Comments GLUBED (test code = GLUBED) 164 mg/dL 74-106 H Performed by certified solder deposit operator at [facility] [id number] 18:08:00* Test Item Value Reference Range Interpretation Comments GLUBED (test code = GLUBED) 128 mg/dL 74-106 H Performed by certified solder deposit operator at [facility] BODY FLUID CELL [id number] 14:32:00* Test Item Value Reference Range Interpretation [...] BY (test code = REVIEW) PATHOLOGIST FLUID [id number] 14:32:00* Test Item Value Reference Range Interpretation Comments FLUID PH (test code = PHFL) 7.0 6.8-7.6 N FLUID [id number] 14:32:00* Test Item Value Reference Range Interpretation Comments FLUID GLUCOSE (test code = GLUFL) 153 mg/dL FLUID [id number] 14:32:00* Test Item Value Reference Range Interpretation Comments FLUID PROTEIN (test code = PROTFL) 0.5 gram/dL FLUID [id number] 14:32:00* Test Item Value Reference Range Interpretation Comments FLUID LDH (test code = LDHFL) 43 IUnit/L BODY FLUID CELL [id number] 14:28:00* Test Item Value Reference Range Interpretation [...] BY (test code = REVIEW) PATHOLOGIST FLUID [id number] 14:28:00* Test Item Value Reference Range Interpretation Comments FLUID PH (test code = PHFL) 7.0 6.8-7.6 N FLUID [id number] 14:28:00* Test Item Value Reference Range Interpretation Comments FLUID GLUCOSE (test code = GLUFL) 153 mg/dL FLUID [id number] 14:28:00* Test Item Value Reference Range Interpretation Comments FLUID PROTEIN (test code = PROTFL) 0.5 gram/dL FLUID [id number] 14:28:00* Test Item Value Reference Range Interpretation Comments FLUID LDH (test code = LDHFL) 43 IUnit/L BODY FLUID CELL [id number] 14:07:00* Test Item Value Reference Range Interpretation [...] BY (test code = REVIEW) PATHOLOGIST FLUID [id number] 14:07:00* Test Item Value Reference Range Interpretation Comments FLUID PH (test code = PHFL) 7.0 6.8-7.6 N FLUID [id number] 14:07:00* Test Item Value Reference Range Interpretation Comments FLUID GLUCOSE (test code = GLUFL) mg/dL FLUID [id number] 14:07:00* Test Item Value Reference Range Interpretation Comments FLUID PROTEIN (test code = PROTFL) gram/dL FLUID [id number] 14:07:00* Test Item Value Reference Range Interpretation Comments FLUID LDH (test code = LDHFL) IUnit/L BODY FLUID CELL [id number] 14:06:00* Test Item Value Reference Range Interpretation [...] BY (test code = REVIEW) PATHOLOGIST FLUID [id number] 14:06:00* Test Item Value Reference Range Interpretation Comments FLUID PH (test code = PHFL) 7.0 6.8-7.6 N FLUID [id number] 14:06:00* Test Item Value Reference Range Interpretation Comments FLUID GLUCOSE (test code = GLUFL) mg/dL FLUID [id number] 14:06:00* Test Item Value Reference Range Interpretation Comments FLUID PROTEIN (test code = PROTFL) gram/dL FLUID [id number] 14:06:00* Test Item Value Reference Range Interpretation Comments FLUID LDH (test code = LDHFL) IUnit/L BODY FLUID CELL [id number] 14:04:00* Test Item Value Reference Range Interpretation [...] BY (test code = REVIEW) PATHOLOGIST FLUID [id number] 14:04:00* Test Item Value Reference Range Interpretation Comments FLUID PH (test code = PHFL) 6.8-7.6 FLUID [id number] 14:04:00* Test Item Value Reference Range Interpretation Comments FLUID GLUCOSE (test code = GLUFL) mg/dL FLUID [id number] 14:04:00* Test Item Value Reference Range Interpretation Comments FLUID PROTEIN (test code = PROTFL) gram/dL FLUID [id number] 14:04:00* Test Item Value Reference Range Interpretation Comments FLUID LDH (test code = LDHFL) IUnit/L BODY FLUID CELL [id number] 13:48:00* Test Item Value Reference Range Interpretation [...] BY (test code = REVIEW) PATHOLOGIST FLUID [id number] 13:48:00* Test Item Value Reference Range Interpretation Comments FLUID PH (test code = PHFL) 6.8-7.6 FLUID [id number] 13:48:00* Test Item Value Reference Range Interpretation Comments FLUID GLUCOSE (test code = GLUFL) mg/dL FLUID [id number] 13:48:00* Test Item Value Reference Range Interpretation Comments FLUID PROTEIN (test code = PROTFL) gram/dL FLUID [id number] 13:48:00* Test Item Value Reference Range Interpretation Comments FLUID LDH (test code = LDHFL) IUnit/L BASIC METABOLIC [id number] 05:07:00* Test Item Value Reference Range Interpretation [...] code = CA) 7.1 mg/dL 8.5-10.1 L [id number] 05:07:00* Test Item Value Reference Range Interpretation Comments PHOSPHORUS (test code = PHOS) 2.2 mg/dL 2.5-4.9 L [id number] 05:07:00* Test Item Value Reference Range Interpretation Comments MAGNESIUM (test code = MAG) 2.0 mg/dL 1.8-2.4 N CALCIUM [id number] 05:07:00* Test Item Value Reference Range Interpretation Comments CALCIUM IONIZED (test code = NORBERTO) 1.14 mmol/L 1.12-1.32 N BASIC METABOLIC [id number] 04:00:00* Test Item Value Reference Range Interpretation [...] code = CA) 7.1 mg/dL 8.5-10.1 L [id number] 04:00:00* Test Item Value Reference Range Interpretation Comments PHOSPHORUS (test code = PHOS) 2.2 mg/dL 2.5-4.9 L [id number] 04:00:00* Test Item Value Reference Range Interpretation Comments MAGNESIUM (test code = MAG) 2.0 mg/dL 1.8-2.4 N CALCIUM [id number] 04:00:00* Test Item Value Reference Range Interpretation Comments CALCIUM IONIZED (test code = NORBERTO) mmol/L 1.12-1.32 BASIC METABOLIC [id number] 03:50:00* Test Item Value Reference Range Interpretation [...] CALCIUM (test code = CA) mg/dL 8.5-10.1 [id number] 03:50:00* Test Item Value Reference Range Interpretation Comments PHOSPHORUS (test code = PHOS) mg/dL 2.5-4.9 [id number] 03:50:00* Test Item Value Reference Range Interpretation Comments MAGNESIUM (test code = MAG) mg/dL 1.8-2.4 CALCIUM [id number] 03:50:00* Test Item Value Reference Range Interpretation Comments CALCIUM IONIZED (test code = NORBERTO) mmol/L 1.12-1.32 PROTHROMBIN [id number] 03:20:00* Test Item Value Reference Range Interpretation [...] (2.5-3.5) IS PATIENT ON ANTICOAGULANTS? NCOMMENTS TO FAST FOOD CREW MEMBER: NEED FOR PROCEDURE 05/23ROMBOPLASTIN TIME [id number] 03:20:00* Test Item Value Reference Range Interpretation Comments THROMBOPLASTIN TIME PARTIAL (test code = PTT) 34.7 seconds 25.0-36. 5 N IS PATIENT ON ANTICOAGULANTS? NCOMMENTS TO FAST FOOD CREW MEMBER: NEED FOR PROCEDURE 05/23 04/13CBC W/AUTO [id number] 03:05:00* Test Item Value Reference Range Interpretation [...] code = NRBC#) 0.04 K/mm3 0.0-0.1 N [id number] 02:43:00* Test Item Value Reference Range Interpretation Comments GLUBED (test code = GLUBED) 154 mg/dL 74-106 H Performed by certified solder deposit operator at [facility] [id number] 02:43:00* Test Item Value Reference Range Interpretation Comments GLUBED (test code = GLUBED) > 500 mg/dL 74-106 HH Performed by certified solder deposit operator [facility]Notified Nurse~ - HEPA IMAG INCL GB W [id number] 16:05:00 FAX: Pushpa Neff NP [phone] [place]: B St: ADM FAX: Kinza Ireland MD [phone] Name: SUZI SCANLON [facility] : 1955 Age/S: 64/F [address] Unit #: [id number] Loc: [place] [address] Phys: Pushpa Neff NP Acct: [id number] Dis Date: Status: ADM IN PHONE #: [phone] Exam Date: 06/02/2019 8214 FAX #: [phone] Reason: gall bladder sludge EXAMS: CPT CODE: [id number] HEPA IMAG INCL GB W PHA [id number] REASON FOR EXAM: gall bladder sludge Exam Order Date: 06/02/2019 2:16 PM Ordering: Pushpa Neff NP Attending:Sandra Ireland MD Location:[facility] Procedure: - HEPA IMAG INCL G B [...] at 1605 Reported and si gned by: Frde Isaacs M.D. CC: Pushpa Neff MINIATURE SET DESIGNER; Kinza Ireland Technologist: Alayna Doty RT(N) Trnscrd Date/Time/By: 06/02/2019 (1605) : By: Ibrahima Orig Print D/T: S: 06/02/2019 (2718) PAGE 1 Signed Report - US ABDOMEN [id number] 14:53:00 Name: SUZI SCANLON [facility] : 1955 Age/S: 64 / F [address] Unit #: [id number] Loc: [place] [address] Phys: Gloria Montes De Oca MD Acct: [id number] Dis Date: Status: ADM IN PHONE #: [phone] Exam Date: 06/02/2019 1410 FAX #: [phone] Reason: ascites, abdominal distension EXAMS: CPT CODE: [id number] US ABDOMEN COMPLETE 28886 REASON FOR EXAM: ascites, abdominal distension EXAM ORDER DATE: 06/02/2019 11:13 AM Ordering: Gloria Montes De Oca MD Attending:Kinza Ireland MD Location:[facility] PROCEDURE: - US ABDOMEN COMPLETE FINDINGS: The [...] of the liver. Minimal ascites. Cholelithiasis. at 1453 Reported and signed by: Fred Isaacs M.D. CC: Kinza Ireland MD; Gloria Montes De Oca MD Technologist: CHRISTINE GUPTA RT(R),RDMS Trnkyb Date/Time: 06/02/2019 (6493) tJOHN Orig Print D/T: S: 06/02/2019 (1108) Probe: PAGE 1 Signed Report BASIC METABOLIC [id number] 03:38:00* Test Item Value Reference Range Interpretation [...] code = CA) 6.9 mg/dL 8.5-10.1 L [id number] 03:38:00* Test Item Value Reference Range Interpretation Comments PHOSPHORUS (test code = PHOS) 2.6 mg/dL 2.5-4.9 N [id number] 03:38:00* Test Item Value Reference Range Interpretation Comments MAGNESIUM (test code = MAG) 1.8 mg/dL 1.8-2.4 N CALCIUM [id number] 03:38:00* Test Item Value Reference Range Interpretation Comments CALCIUM IONIZED (test code = NORBERTO) 1.14 mmol/L 1.12-1.32 N PROTHROMBIN [id number] 03:37:00* Test Item Value Reference Range Interpretation [...] Mechanical prosthetic heart valves (2.5-3.5) THROMBOPLASTIN TIME [id number] 03:37:00* Test Item Value Reference Range Interpretation Comments THROMBOPLASTIN TIME PARTIAL (test code = PTT) 38.0 seconds 25.0-36. 5 H [id number] 03:37:00* Test Item Value Reference Range Interpretation Comments FIBRINOGEN (test code = FIB) 106 mg/dL 200-400 L FIBRIN SPLIT [id number] 03:37:00* Test Item Value Reference Range Interpretation Comments FIBRIN SPLIT PRODUCT (test code = FSP) mcg/mL <5 [id number] 03:37:00* Test Item Value Reference Range Interpretation Comments D-DIMER (test code = DDIMER) 4562.00 ng/mLFEU 0-500 HH Results called to [id number] by [employer].JP1 06/02/19 0337Critical results verified and read back [...] code = AT3) % 75-135 BASIC METABOLIC [id number] 03:27:00* Test Item Value Reference Range Interpretation [...] code = CA) 6.9 mg/dL 8.5-10.1 L [id number] 03:27:00* Test Item Value Reference Range Interpretation Comments PHOSPHORUS (test code = PHOS) 2.6 mg/dL 2.5-4.9 N [id number] 03:27:00* Test Item Value Reference Range Interpretation Comments MAGNESIUM (test code = MAG) 1.8 mg/dL 1.8-2.4 N CALCIUM [id number] 03:27:00* Test Item Value Reference Range Interpretation Comments CALCIUM IONIZED (test code = NORBERTO) mmol/L 1.12-1.32 BASIC METABOLIC [id number] 03:25:00* Test Item Value Reference Range Interpretation [...] CALCIUM (test code = CA) mg/dL 8.5-10.1 [id number] 03:25:00* Test Item Value Reference Range Interpretation Comments PHOSPHORUS (test code = PHOS) mg/dL 2.5-4.9 [id number] 03:25:00* Test Item Value Reference Range Interpretation Comments MAGNESIUM (test code = MAG) mg/dL 1.8-2.4 CALCIUM [id number] 03:25:00* Test Item Value Reference Range Interpretation Comments CALCIUM IONIZED (test code = NORBERTO) mmol/L 1.12-1.32 CBC W/AUTO [id number] 03:22:00* Test Item Value Reference Range Interpretation [...] 0.04 K/mm3 0.0-0.1 N ALPHA FETOPROTEIN TUMOR [id number] 03:07:00* Test Item Value Reference Range Interpretation Comments ALPHA FETOPROTEIN TUMOR MARKER (test code = AFPTM) 10.3 ng/mL 0.0 -8.3 A [facility] [employer] Electrochemiluminescence Immunoassay(ECLIA)Values obtained with different assay methods or kits cannotbe used interchangeably. Results cannot be interpreted asabsolute evidence of the presence or absence of malignantdisease.This test is not interpretable in females.Performed At: [facility] [id number] Diego Douglas MD Ph:[phone] CBC W/AUTO [id number] 17:44:00* Test Item Value Reference Range Interpretation [...] = MDIFF) NO, ONLY SCAN NEEDED DIFFERENTIAL [id number] 17:44:00* Test Item Value Reference Range Interpretation Comments STAIN ACCEPTABILITY (test code = STN ACCEPTABLE) STAIN ACCEPTABLE POIKILOCYTOSIS (test code = POIK) 1+ ANISOCYTOSIS (test code = ANISO) 1+ MACROCYTOSIS (test code = MACR) 1+ PLATELET ESTIMATE (test code = PLTEST) DECREASED PLATELET MORPHOLOGY (test code = PLTMORPH) NORMAL LACTIC [id number] 15:53:00* Test Item Value Reference Range Interpretation Comments LACTIC ACID (test code = LACT) 2.0 mmol/L 0.4-1.9 H Results called to [id number] by SairaLABNANCY 06/01/19 1553Critical results verified and read back by Nurse? Y [id number] 15:34:00* Test Item Value Reference Range Interpretation Comments AMMONIA (test code = AMM) 25 umol/L 11-32 N BASIC METABOLIC [id number] 15:34:00* Test Item Value Reference Range Interpretation [...] code = CA) 7.7 mg/dL 8.5-10.1 L [id number] 15:34:00* Test Item Value Reference Range Interpretation Comments PHOSPHORUS (test code = PHOS) 3.7 mg/dL 2.5-4.9 N [id number] 15:34:00* Test Item Value Reference Range Interpretation Comments MAGNESIUM (test code = MAG) 1.9 mg/dL 1.8-2.4 N CALCIUM [id number] 15:34:00* Test Item Value Reference Range Interpretation Comments CALCIUM IONIZED (test code = NORBERTO) 1.17 mmol/L 1.12-1.32 N BASIC METABOLIC [id number] 15:31:00* Test Item Value Reference Range Interpretation [...] CALCIUM (test code = CA) mg/dL 8.5-10.1 [id number] 15:31:00* Test Item Value Reference Range Interpretation Comments PHOSPHORUS (test code = PHOS) mg/dL 2.5-4.9 [id number] 15:31:00* Test Item Value Reference Range Interpretation Comments MAGNESIUM (test code = MAG) mg/dL 1.8-2.4 CALCIUM [id number] 15:31:00* Test Item Value Reference Range Interpretation Comments CALCIUM IONIZED (test code = NORBERTO) 1.17 mmol/L 1.12-1.32 N BASIC METABOLIC [id number] 15:22:00* Test Item Value Reference Range Interpretation [...] CALCIUM (test code = CA) mg/dL 8.5-10.1 [id number] 15:22:00* Test Item Value Reference Range Interpretation Comments PHOSPHORUS (test code = PHOS) mg/dL 2.5-4.9 [id number] 15:22:00* Test Item Value Reference Range Interpretation Comments MAGNESIUM (test code = MAG) mg/dL 1.8-2.4 CALCIUM [id number] 15:22:00* Test Item Value Reference Range Interpretation Comments CALCIUM IONIZED (test code = NORBERTO) 1.17 mmol/L 1.12-1.32 N CBC W/AUTO [id number] 15:18:00* Test Item Value Reference Range Interpretation [...] = MDIFF) NO, ONLY SCAN NEEDED DIFFERENTIAL [id number] 15:18:00* Test Item Value Reference Range Interpretation Comments STAIN ACCEPTABILITY (test code = STN ACCEPTABLE) CABOT RINGS (test code = CAB) MORPHOLOGY COMMENT (test code = MOC) PLATELET ESTIMATE (test code = PLTEST) PLATELET MORPHOLOGY (test code = PLTMORPH) CBC W/AUTO [id number] 15:18:00* Test Item Value Reference Range Interpretation [...] = MDIFF) NO, ONLY SCAN NEEDED DIFFERENTIAL [id number] 15:18:00* Test Item Value Reference Range Interpretation Comments STAIN ACCEPTABILITY (test code = STN ACCEPTABLE) MORPHOLOGY COMMENT (test code = MOC) PLATELET ESTIMATE (test code = PLTEST) PLATELET MORPHOLOGY (test code = PLTMORPH) CBC W/AUTO [id number] 15:17:00* Test Item Value Reference Range Interpretation [...] = MDIFF) NO, ONLY SCAN NEEDED DIFFERENTIAL [id number] 15:17:00* Test Item Value Reference Range Interpretation Comments STAIN ACCEPTABILITY (test code = STN ACCEPTABLE) CABOT RINGS (test code = CAB) MORPHOLOGY COMMENT (test code = MOC) PLATELET ESTIMATE (test code = PLTEST) PLATELET MORPHOLOGY (test code = PLTMORPH) CBC W/AUTO [id number] 15:17:00* Test Item Value Reference Range Interpretation [...] = MDIFF) NO, ONLY SCAN NEEDED DIFFERENTIAL [id number] 15:17:00* Test Item Value Reference Range Interpretation Comments STAIN ACCEPTABILITY (test code = STN ACCEPTABLE) CABOT RINGS (test code = CAB) MORPHOLOGY COMMENT (test code = MOC) PLATELET ESTIMATE (test code = PLTEST) PLATELET MORPHOLOGY (test code = PLTMORPH) PROTHROMBIN [id number] 08:21:00* Test Item Value Reference Range Interpretation [...] Mechanical prosthetic heart valves (2.5-3.5) THROMBOPLASTIN TIME [id number] 08:21:00* Test Item Value Reference Range Interpretation Comments THROMBOPLASTIN TIME PARTIAL (test code = PTT) 40.8 seconds 25.0-36. 5 H [id number] 08:21:00* Test Item Value Reference Range Interpretation Comments FIBRINOGEN (test code = FIB) 100 mg/dL 200-400 L FIBRIN SPLIT [id number] 08:21:00* Test Item Value Reference Range Interpretation Comments FIBRIN SPLIT PRODUCT (test code = FSP) mcg/mL <5 [id number] 08:21:00* Test Item Value Reference Range Interpretation Comments D-DIMER (test code = DDIMER) 5166.00 ng/mLFEU 0-500 Results called to [id number] results verified and read back by Nurse? [...] (test code = AT3) % 75-135 LACTIC [id number] 07:59:00* Test Item Value Reference Range Interpretation Comments LACTIC ACID (test code = LACT) 2.5 mmol/L 0.4-1.9 HH Results called to ALE HBZ6652cc V.LAB.OA 06/01/19 0758Critical results verified and read back by Nurse? Y LACTIC [id number] 06:14:00* Test Item Value Reference Range Interpretation Comments LACTIC ACID (test code = LACT) 2.3 mmol/L 0.4-1.9 HH Results called to [id number] by V.LAB.SADA 06/01/19 0614Critical results verified and read back by Nurse? Y BASIC METABOLIC [id number] 04:23:00* Test Item Value Reference Range Interpretation [...] mg/dL 8.5-10.1 L Re sults called to [id number] by V.LAB.SADA 06/01/19 0423Critical results verified and read back by Nurse? Y [id number] 04:23:00* Test Item Value Reference Range Interpretation Comments PHOSPHORUS (test code = PHOS) 1.3 mg/dL 2.5-4.9 L [id number] 04:23:00* Test Item Value Reference Range Interpretation Comments MAGNESIUM (test code = MAG) 1.8 mg/dL 1.8-2.4 N CALCIUM [id number] 04:23:00* Test Item Value Reference Range Interpretation Comments CALCIUM IONIZED (test code = NORBERTO) 1.10 mmol/L 1.12-1.32 L BASIC METABOLIC [id number] 03:48:00* Test Item Value Reference Range Interpretation [...] CALCIUM (test code = CA) mg/dL 8.5-10.1 [id number] 03:48:00* Test Item Value Reference Range Interpretation Comments PHOSPHORUS (test code = PHOS) mg/dL 2.5-4.9 [id number] 03:48:00* Test Item Value Reference Range Interpretation Comments MAGNESIUM (test code = MAG) mg/dL 1.8-2.4 CALCIUM [id number] 03:48:00* Test Item Value Reference Range Interpretation Comments CALCIUM IONIZED (test code = NORBERTO) 1.10 mmol/L 1.12-1.32 L CBC W/AUTO [id number] 03:00:00* Test Item Value Reference Range Interpretation [...] = NRBC#) 0.02 K/mm3 0.0-0.1 N LACTIC [id number] 00:06:00* Test Item Value Reference Range Interpretation Comments LACTIC ACID (test code = LACT) 2.1 mmol/L 0.4-1.9 Results called to [id number] by CHRIS 06/01/19 0006Critical results verified and read back by Nurse? y CBC W/AUTO [id number] 20:27:00* Test Item Value Reference Range Interpretation [...] = MDIFF) NO, ONLY SCAN NEEDED DIFFERENTIAL [id number] 20:27:00* Test Item Value Reference Range Interpretation Comments STAIN ACCEPTABILITY (test code = STN ACCEPTABLE) STAIN ACCEPTABLE POIKILOCYTOSIS (test code = POIK) 1+ ANISOCYTOSIS (test code = ANISO) 1+ CRENATED CELLS (test code = CREN) 1+ PLATELET ESTIMATE (test code = PLTEST) DECREASED PLATELET MORPHOLOGY (test code = PLTMORPH) Y LACTIC [id number] 18:08:00* Test Item Value Reference Range Interpretation Comments LACTIC ACID (test code = LACT) 2.5 mmol/L 0.4-1.9 HH Results called to [id number] by V.LAB.KP1 05/31/19 1808Critical results verified and read back by Nurse? Y CBC W/AUTO [id number] 17:55:00* Test Item Value Reference Range Interpretation [...] = MDIFF) NO, ONLY SCAN NEEDED DIFFERENTIAL [id number] 17:55:00* Test Item Value Reference Range Interpretation Comments STAIN ACCEPTABILITY (test code = STN ACCEPTABLE) CABOT RINGS (test code = CAB) MORPHOLOGY COMMENT (test code = MOC) PLATELET ESTIMATE (test code = PLTEST) PLATELET MORPHOLOGY (test code = PLTMORPH) CBC W/AUTO [id number] 17:55:00* Test Item Value Reference Range Interpretation [...] = MDIFF) NO, ONLY SCAN NEEDED DIFFERENTIAL [id number] 17:55:00* Test Item Value Reference Range Interpretation Comments STAIN ACCEPTABILITY (test code = STN ACCEPTABLE) CABOT RINGS (test code = CAB) MORPHOLOGY COMMENT (test code = MOC) PLATELET ESTIMATE (test code = PLTEST) PLATELET MORPHOLOGY (test code = PLTMORPH) CBC W/AUTO [id number] 17:55:00* Test Item Value Reference Range Interpretation [...] = MDIFF) NO, ONLY SCAN NEEDED DIFFERENTIAL [id number] 17:55:00* Test Item Value Reference Range Interpretation Comments STAIN ACCEPTABILITY (test code = STN ACCEPTABLE) MORPHOLOGY COMMENT (test code = MOC) PLATELET ESTIMATE (test code = PLTEST) PLATELET MORPHOLOGY (test code = PLTMORPH) CBC W/AUTO [id number] 17:55:00* Test Item Value Reference Range Interpretation [...] = MDIFF) NO, ONLY SCAN NEEDED DIFFERENTIAL [id number] 17:55:00* Test Item Value Reference Range Interpretation Comments STAIN ACCEPTABILITY (test code = STN ACCEPTABLE) CABOT RINGS (test code = CAB) MORPHOLOGY COMMENT (test code = MOC) PLATELET ESTIMATE (test code = PLTEST) PLATELET MORPHOLOGY (test code = PLTMORPH) [id number] 14:34:00* Test Item Value Reference Range Interpretation Comments AMMONIA (test code = AMM) 117 umol/L 11-32 H CBC W/AUTO [id number] 13:30:00* Test Item Value Reference Range Interpretation Comments WHITE BLOOD CELL (test code = WBC) 8.2 K/mm3 4.5-12.5 N RED BLOOD CELL (test code = RBC) 2.20 mill/mm3 3.7-5.2 L HEMOGLOBIN (test code = HGB) 6.8 gram/dL 11.5-15.5 L HEMATOCRIT (test code = HCT) 21.2 % 36.0-46.0 LL Results called to [id number] by TRISTON 05/31/19 1246Critical results verified and [...] = MDIFF) NO, ONLY SCAN NEEDED DIFFERENTIAL [id number] 13:30:00* Test Item Value Reference Range Interpretation Comments STAIN ACCEPTABILITY (test code = STN ACCEPTABLE) STAIN ACCEPTABLE POIKILOCYTOSIS (test code = POIK) 3+ ANISOCYTOSIS (test code = ANISO) 2+ MACROCYTOSIS (test code = MACR) 2+ MORPHOLOGY COMMENT (test code = MOC) TEST NOT PERFORMED PLATELET ESTIMATE (test code = PLTEST) DECREASED PLATELET MORPHOLOGY (test code = PLTMORPH) NORMAL LACTIC [id number] 12:58:00* Test Item Value Reference Range Interpretation Comments LACTIC ACID (test code = LACT) 3.0 mmol/L 0.4-1.9 HH Results called to [id number] by V.LAB.DDC 05/31/19 1257Critical results verified and read back by Nurse? y CBC W/AUTO [id number] 12:49:00* Test Item Value Reference Range Interpretation Comments WHITE BLOOD CELL (test code = WBC) 8.2 K/mm3 4.5-12.5 N RED BLOOD CELL (test code = RBC) 2.20 mill/mm3 3.7-5.2 L HEMOGLOBIN (test code = HGB) 6.8 gram/dL 11.5-15.5 L HEMATOCRIT (test code = HCT) 21.2 % 36.0-46.0 LL Results called to [id number] by V.[email or web address] 05/31/19 1246Critical results verified and [...] = MDIFF) NO, ONLY SCAN NEEDED DIFFERENTIAL [id number] 12:49:00* Test Item Value Reference Range Interpretation Comments STAIN ACCEPTABILITY (test code = STN ACCEPTABLE) CABOT RINGS (test code = CAB) MORPHOLOGY COMMENT (test code = MOC) PLATELET ESTIMATE (test code = PLTEST) PLATELET MORPHOLOGY (test code = PLTMORPH) CBC W/AUTO [id number] 12:49:00* Test Item Value Reference Range Interpretation Comments WHITE BLOOD CELL (test code = WBC) 8.2 K/mm3 4.5-12.5 N RED BLOOD CELL (test code = RBC) 2.20 mill/mm3 3.7-5.2 L HEMOGLOBIN (test code = HGB) 6.8 gram/dL 11.5-15.5 L HEMATOCRIT (test code = HCT) 21.2 % 36.0-46.0 LL Results called to [id number] by TRISTON 05/31/19 1246Critical results verified and [...] = MDIFF) NO, ONLY SCAN NEEDED DIFFERENTIAL [id number] 12:49:00* Test Item Value Reference Range Interpretation Comments STAIN ACCEPTABILITY (test code = STN ACCEPTABLE) MORPHOLOGY COMMENT (test code = MOC) PLATELET ESTIMATE (test code = PLTEST) PLATELET MORPHOLOGY (test code = PLTMORPH) CBC W/AUTO [id number] 12:48:00* Test Item Value Reference Range Interpretation Comments WHITE BLOOD CELL (test code = WBC) 8.2 K/mm3 4.5-12.5 N RED BLOOD CELL (test code = RBC) 2.20 mill/mm3 3.7-5.2 L HEMOGLOBIN (test code = HGB) 6.8 gram/dL 11.5-15.5 L HEMATOCRIT (test code = HCT) 21.2 % 36.0-46.0 LL Results called to [place] [address] by V.JUAN LUIS.AJ 05/31/19 1246Critical results verified and read back [...] = MDIFF) NO, ONLY SCAN NEEDED DIFFERENTIAL [id number] 12:48:00* Test Item Value Reference Range Interpretation Comments STAIN ACCEPTABILITY (test code = STN ACCEPTABLE) CABOT RINGS (test code = CAB) MORPHOLOGY COMMENT (test code = MOC) PLATELET ESTIMATE (test code = PLTEST) PLATELET MORPHOLOGY (test code = PLTMORPH) CBC W/AUTO [id number] 12:48:00* Test Item Value Reference Range Interpretation Comments WHITE BLOOD CELL (test code = WBC) 8.2 K/mm3 4.5-12.5 N RED BLOOD CELL (test code = RBC) 2.20 mill/mm3 3.7-5.2 L HEMOGLOBIN (test code = HGB) 6.8 gram/dL 11.5-15.5 L HEMATOCRIT (test code = HCT) 21.2 % 36.0-46.0 LL Results called to [id number] by V.LAB.AJ 05/31/19 1246Critical results verified and read back [...] = MDIFF) NO, ONLY SCAN NEEDED DIFFERENTIAL [id number] 12:48:00* Test Item Value Reference Range Interpretation Comments STAIN ACCEPTABILITY (test code = STN ACCEPTABLE) CABOT RINGS (test code = CAB) MORPHOLOGY COMMENT (test code = MOC) PLATELET ESTIMATE (test code = PLTEST) PLATELET MORPHOLOGY (test code = PLTMORPH) LACTIC [id number] 10:44:00* Test Item Value Reference Range Interpretation Comments LACTIC ACID (test code = LACT) 4.6 mmol/L 0.4-1.9 HH Results called to [id number] by V.LAB.GP 05/31/19 1044Critical results verified and read back by Nurse? Y LACTIC [id number] 07:44:00* Test Item Value Reference Range Interpretation Comments LACTIC ACID (test code = LACT) 4.4 mmol/L 0.4-1.9 HH Results called to [id number] by V.LAB.GP 05/31/19 0744Critical results verified and read back by Nurse? Y LACTIC [id number] 05:15:00* Test Item Value Reference Range Interpretation Comments LACTIC ACID (test code = LACT) 6.5 mmol/L 0.4-1.9 HH Results called to [id number] by V.LAB.SADA 05/31/19 0515Critical results verified and read back by Nurse? Y COMPREHENSIVE METABOLIC [id number] 05:15:00* Test Item Value Reference Range Interpretation [...] reference range due to change in reagent. [id number] 05:15:00* Test Item Value Reference Range Interpretation Comments PHOSPHORUS (test code = PHOS) 2.8 mg/dL 2.5-4.9 N [id number] 05:15:00* Test Item Value Reference Range Interpretation Comments MAGNESIUM (test code = MAG) 1.5 mg/dL 1.8-2.4 L CALCIUM [id number] 05:15:00* Test Item Value Reference Range Interpretation Comments CALCIUM IONIZED (test code = NORBERTO) 1.11 mmol/L 1.12-1.32 L [id number] 05:11:00* Test Item Value Reference Range Interpretation Comments TROPONIN-I (test code = TROPI) <0.015 ng/mL 0-0.045 N [id number] 05:02:00* Test Item Value Reference Range Interpretation Comments AMMONIA (test code = AMM) 102 umol/L 11-32 H PROTHROMBIN [id number] 04:56:00* Test Item Value Reference Range Interpretation [...] (2.5-3.5) IS PATIENT ON ANTICOAGULANTS? NTHROMBOPLASTIN TIME [id number] 04:56:00* Test Item Value Reference Range Interpretation Comments THROMBOPLASTIN TIME PARTIAL (test code = PTT) 40.9 seconds 25.0-36. 5 H IS PATIENT ON ANTICOAGULANTS? NCOMPREHENSIVE METABOLIC [id number] 04:56:00 * Test Item Value Reference Range [...] TOTAL (test code = ALKP) IUnit/L 45-117 [id number] 04:56:00* Test Item Value Reference Range Interpretation Comments PHOSPHORUS (test code = PHOS) mg/dL 2.5-4.9 [id number] 04:56:00* Test Item Value Reference Range Interpretation Comments MAGNESIUM (test code = MAG) mg/dL 1.8-2.4 CALCIUM [id number] 04:56:00* Test Item Value Reference Range Interpretation Comments CALCIUM IONIZED (test code = NORBERTO) 1.11 mmol/L 1.12-1.32 L COMPREHENSIVE METABOLIC [id number] 04:52:00* Test Item Value Reference Range Interpretation [...] TOTAL (test code = ALKP) IUnit/L 45-117 [id number] 04:52:00* Test Item Value Reference Range Interpretation Comments PHOSPHORUS (test code = PHOS) mg/dL 2.5-4.9 [id number] 04:52:00* Test Item Value Reference Range Interpretation Comments MAGNESIUM (test code = MAG) mg/dL 1.8-2.4 CALCIUM [id number] 04:52:00* Test Item Value Reference Range Interpretation Comments CALCIUM IONIZED (test code = NORBERTO) 1.11 mmol/L 1.12-1.32 L CBC W/AUTO [id number] 04:50:00* Test Item Value Reference Range Interpretation [...] = NRBC#) 0.00 K/mm3 0.0-0.1 N LACTIC [id number] 01:41:00* Test Item Value Reference Range Interpretation Comments LACTIC ACID (test code = LACT) 9.4 mmol/L 0.4-1.9 HH Results called to [id number] by V.LAB.JP1 05/31/19 0141Critical results verified and read back by Nurse? YES CBC W/AUTO [id number] 23:34:00* Test Item Value Reference Range Interpretation Comments WHITE BLOOD CELL (test code = WBC) 10.4 K/mm3 4.5-12.5 N RED BLOOD CELL (test code = RBC) 1.95 mill/mm3 3.7-5.2 L HEMOGLOBIN (test code = HGB) 6.2 gram/dL 11.5-15.5 L HEMATOCRIT (test code = HCT) 19.3 % 36.0-46.0 LL Results called to [id number] by V.LAB.LL 05/30/19 2125Critical results verified and [...] = MDIFF) NO, ONLY SCAN NEEDED DIFFERENTIAL [id number] 23:34:00* Test Item Value Reference Range Interpretation Comments STAIN ACCEPTABILITY (test code = STN ACCEPTABLE) STAIN ACCEPTABLE HYPOCHROMIA (test code = HYPO) 1+ ANISOCYTOSIS (test code = ANISO) 1+ PLATELET ESTIMATE (test code = PLTEST) DECREASED PLATELET MORPHOLOGY (test code = PLTMORPH) NORMAL [id number] 21:34:00* Test Item Value Reference Range Interpretation Comments TROPONIN-I (test code = TROPI) <0.015 ng/mL 0-0.045 N LACTIC [id number] 21:28:00* Test Item Value Reference Range Interpretation Comments LACTIC ACID (test code = LACT) 6.8 mmol/L 0.4-1.9 HH Results called to [id number] by V.LAB.SPR 05/30/197Critical results verified and read back by Nurse? Y CBC W/AUTO [id number] 21:26:00* Test Item Value Reference Range Interpretation Comments WHITE BLOOD CELL (test code = WBC) 10.4 K/mm3 4.5-12.5 N RED BLOOD CELL (test code = RBC) 1.95 mill/mm3 3.7-5.2 L HEMOGLOBIN (test code = HGB) 6.2 gram/dL 11.5-15.5 L HEMATOCRIT (test code = HCT) 19.3 % 36.0-46.0 LL Results called to [id number] by [employer].LAB.LL 05/30/195Critical results verified and read back by Nurse? [...] = MDIFF) NO, ONLY SCAN NEEDED DIFFERENTIAL [id number] 21:26:00* Test Item Value Reference Range Interpretation Comments STAIN ACCEPTABILITY (test code = STN ACCEPTABLE) CABOT RINGS (test code = CAB) MORPHOLOGY COMMENT (test code = MOC) PLATELET ESTIMATE (test code = PLTEST) PLATELET MORPHOLOGY (test code = PLTMORPH) CBC W/AUTO [id number] 21:26:00* Test Item Value Reference Range Interpretation Comments WHITE BLOOD CELL (test code = WBC) 10.4 K/mm3 4.5-12.5 N RED BLOOD CELL (test code = RBC) 1.95 mill/mm3 3.7-5.2 L HEMOGLOBIN (test code = HGB) 6.2 gram/dL 11.5-15.5 L HEMATOCRIT (test code = HCT) 19.3 % 36.0-46.0 Results called to [id number] by V.LAB.LL 05/30/19 2125Critical results verified and [...] = MDIFF) NO, ONLY SCAN NEEDED DIFFERENTIAL [id number] 21:26:00* Test Item Value Reference Range Interpretation Comments STAIN ACCEPTABILITY (test code = STN ACCEPTABLE) MORPHOLOGY COMMENT (test code = MOC) PLATELET ESTIMATE (test code = PLTEST) PLATELET MORPHOLOGY (test code = PLTMORPH) CBC W/AUTO [id number] 21:25:00* Test Item Value Reference Range Interpretation Comments WHITE BLOOD CELL (test code = WBC) 10.4 K/mm3 4.5-12.5 N RED BLOOD CELL (test code = RBC) 1.95 mill/mm3 3.7-5.2 L HEMOGLOBIN (test code = HGB) 6.2 gram/dL 11.5-15.5 L HEMATOCRIT (test code = HCT) 19.3 % 36.0-46.0 Results called to [id number] by JONY 05/30/19 2125Critical results verified and read back [...] = MDIFF) NO, ONLY SCAN NEEDED DIFFERENTIAL [id number] 21:25:00* Test Item Value Reference Range Interpretation Comments STAIN ACCEPTABILITY (test code = STN ACCEPTABLE) CABOT RINGS (test code = CAB) MORPHOLOGY COMMENT (test code = MOC) PLATELET ESTIMATE (test code = PLTEST) PLATELET MORPHOLOGY (test code = PLTMORPH) CBC W/AUTO [id number] 21:25:00* Test Item Value Reference Range Interpretation Comments WHITE BLOOD CELL (test code = WBC) 10.4 K/mm3 4.5-12.5 N RED BLOOD CELL (test code = RBC) 1.95 mill/mm3 3.7-5.2 L HEMOGLOBIN (test code = HGB) 6.2 gram/dL 11.5-15.5 L HEMATOCRIT (test code = HCT) 19.3 % 36.0-46.0 LL Results called to [id number] by V.LAB. 05/30/19 2125Critical results verified and [...] = MDIFF) NO, ONLY SCAN NEEDED DIFFERENTIAL [id number] 21:25:00* Test Item Value Reference Range Interpretation Comments STAIN ACCEPTABILITY (test code = STN ACCEPTABLE) CABOT RINGS (test code = CAB) MORPHOLOGY COMMENT (test code = MOC) PLATELET ESTIMATE (test code = PLTEST) PLATELET MORPHOLOGY (test code = PLTMORPH) [id number] 21:23:00* Test Item Value Reference Range Interpretation Comments AMMONIA (test code = AMM) 98 umol/L 11-32 H CBC W/AUTO [id number] 12:27:00* Test Item Value Reference Range Interpretation [...] = MDIFF) NO, ONLY SCAN NEEDED DIFFERENTIAL [id number] 12:27:00* Test Item Value Reference Range Interpretation Comments STAIN ACCEPTABILITY (test code = STN ACCEPTABLE) STAIN ACCEPTABLE PLATELET ESTIMATE (test code = PLTEST) DECREASED PLATELET MORPHOLOGY (test code = PLTMORPH) NORMAL LACTIC [id number] 11:28:00* Test Item Value Reference Range Interpretation Comments LACTIC ACID (test code = LACT) 6.6 mmol/L 0.4-1.9 HH Results called to [id number] by TRISTON 05/30/19 1126Critical results verified and read back by Nurse? Y CBC W/AUTO [id number] 10:59:00* Test Item Value Reference Range Interpretation [...] = MDIFF) NO, ONLY SCAN NEEDED DIFFERENTIAL [id number] 10:59:00* Test Item Value Reference Range Interpretation Comments STAIN ACCEPTABILITY (test code = STN ACCEPTABLE) CABOT RINGS (test code = CAB) MORPHOLOGY COMMENT (test code = MOC) PLATELET ESTIMATE (test code = PLTEST) PLATELET MORPHOLOGY (test code = PLTMORPH) CBC W/AUTO [id number] 10:59:00* Test Item Value Reference Range Interpretation [...] = MDIFF) NO, ONLY SCAN NEEDED DIFFERENTIAL [id number] 10:59:00* Test Item Value Reference Range Interpretation Comments STAIN ACCEPTABILITY (test code = STN ACCEPTABLE) CABOT RINGS (test code = CAB) MORPHOLOGY COMMENT (test code = MOC) PLATELET ESTIMATE (test code = PLTEST) PLATELET MORPHOLOGY (test code = PLTMORPH) CBC W/AUTO [id number] 10:59:00* Test Item Value Reference Range Interpretation [...] = MDIFF) NO, ONLY SCAN NEEDED DIFFERENTIAL [id number] 10:59:00* Test Item Value Reference Range Interpretation Comments STAIN ACCEPTABILITY (test code = STN ACCEPTABLE) MORPHOLOGY COMMENT (test code = MOC) PLATELET ESTIMATE (test code = PLTEST) PLATELET MORPHOLOGY (test code = PLTMORPH) CBC W/AUTO [id number] 10:59:00* Test Item Value Reference Range Interpretation [...] = MDIFF) NO, ONLY SCAN NEEDED DIFFERENTIAL [id number] 10:59:00* Test Item Value Reference Range Interpretation Comments STAIN ACCEPTABILITY (test code = STN ACCEPTABLE) CABOT RINGS (test code = CAB) MORPHOLOGY COMMENT (test code = MOC) PLATELET ESTIMATE (test code = PLTEST) PLATELET MORPHOLOGY (test code = PLTMORPH) LACTIC [id number] 10:11:00* Test Item Value Reference Range Interpretation Comments LACTIC ACID (test code = LACT) 6.3 mmol/L 0.4-1.9 HH Results called to [id number] by ANTELMO 05/30/19 1010Critical results verified and read back by Nurse? Y URINALYSIS [id number] 07:05:00* Test Item Value Reference Range Interpretation Comments UA COLOR (test code = COLU) [place] YELLOW UA APPEARANCE (test code = APPU) [...] Urine Source? Clean CatchDRUGS OF ABUSE SCREEN [id number] 07:05:00* Test Item Value Reference Range Interpretation [...] NEGATIVE <300 ng/mL Urine Source? Clean CatchURINALYSIS [id number] 06:44:00* Test Item Value Reference Range Interpretation Comments UA COLOR (test code = COLU) [place] YELLOW UA APPEARANCE (test code = APPU) [...] Urine Source? Clean CatchDRUGS OF ABUSE SCREEN [id number] 06:44:00* Test Item Value Reference Range Interpretation [...] Urine Source? Clean Catch- CT ABD PELVIS [id number] 06:42:00 Name: SUZI SCANLON [facility] : 1955 Age/S: 64 / F [address] Unit #: [id number] Loc: [place] [address] Phys: Naseem Childs DO Acct: [id number] Dis Date: Status: ADM IN PHONE #: [phone] Exam Date: 05/30/2019627 FAX #: Reason: GI Bleed EXAMS: CPT CODE: [id number] CT ABD PELVIS W/CONT [address] CT ABDOMEN AND PELVIS ( with intravenous contrast ) Location Code: [address] [place] INDICATIONS: Abdominal pain. GI bleed [...] 1 Signed Report (CONTINUED) Name: SUZI SCANLON [facility] : 1955 Age/S: 64 / F [address] Unit #: [id number] Loc: [place] [address] Phys: Naseem Childs DO Acct: [id number] Dis Date: Status: ADM IN PHONE #: [phone] Exam Date: 05/30/2019627 FAX #: [phone] Reason: GI Bleed EXAMS: CPT CODE: [id number] CT ABD PELVIS W/CONT 32889 <Continued> at 0642 Reported and signed by: Abram Carr M.D. CC: Naseem Childs DO Technologist:John Ang RT(R)(CT) CTDI: DLP: Trnscb Date/Time: 05/30/2019 (0642) SinaiRK5 Orig Print D/T: S: 05/30/2019 (0646) PAGE 2 Signed Report URINALYSIS [id number] 06:36:00* Test Item Value Reference Range Interpretation Comments UA COLOR (test code = COLU) [place] YELLOW UA APPEARANCE (test code = APPU) [...] Urine Source? Clean CatchDRUGS OF ABUSE SCREEN [id number] 06:36:00* Test Item Value Reference Range Interpretation [...] = [place]) <300 ng/mL Urine Source? Clean [id number] 06:32:00* Test Item Value Reference Range Interpretation Comments ACETAMINOPHEN (test code = ACET) < 10 mcg/mL 10-30 L A RANGE OF 10-30 mcg/mL IS A THERAPEUTIC RANGE. TOXIC CONCENTRATIONS: >150 mcg/mL AT 4 HOURS AFTER INGESTION >= 50 mcg/mL AT 12 HOURS AFTER INGESTION [id number] 06:32:00* Test Item Value Reference Range Interpretation Comments SALICYLATE (test code = SOCO) < 2.0 mg/dL 2.8-20.0 L [id number] 06:32:00* Test Item Value Reference Range Interpretation [...] TO THE PATIENT. - CT HEAD/BRAIN W/O [id number] 06:15:00 Name: SUZI SCANLON [facility] : 1955 Age/S: 64 / [facility] [address] [facility] Unit [facility]: [id number] Loc: [place] [address] Phys: Naseem Childs DO Acct: [id number] Dis Date: Status: REG ER PHONE #: [phone] Exam Date: 05/30/2019 0607 FAX #: [phone] Reason: Altered Mental Status EXAMS: CPT CODE: [id number] CT HEAD/BRAIN W/O CONT 70264 Location Code: B2 HISTORY: Transient alteration of [...] Abram Carr M.D. CC: Naseem Childs DO Technologist:RT Asya(R)(CT) CTDI: DLP: Trnscb Date/Time: 05/30/2019 (614) SinaiRK5 Orig Print D/T: S: 05/30/2019 (617) PAGE 1 Signed Report LACTIC [id number] 06:03:00* Test Item Value Reference Range Interpretation Comments LACTIC ACID (test code = LACT) 7.6 mmol/L 0.4-1.9 HH Results called to [id number] by PIPPA 05/30/19 0603Critical results verified and read back by Nurse? Y BASIC METABOLIC [id number] 06:02:00* Test Item Value Reference Range Interpretation [...] CA) 7.4 mg/dL 8.5-10.1 L HEPATIC FUNCTION [id number] 06:02:00* Test Item Value Reference Range Interpretation [...] reference range due to change in reagent. [id number] 06:02:00* Test Item Value Reference Range Interpretation Comments LIPASE (test code = LIP) 26 U/L 73.0-393.0 L [id number] 06:02:00* Test Item Value Reference Range Interpretation Comments TROPONIN-I (test code = TROPI) <0.015 ng/mL 0-0.045 N [id number] 06:02:00* Test Item Value Reference Range Interpretation Comments ACETAMINOPHEN (test code = ACET) < 10 mcg/mL 10-30 L A RANGE OF 10-30 mcg/mL IS A THERAPEUTIC RANGE. TOXIC CONCENTRATIONS: >150 mcg/mL AT 4 HOURS AFTER INGESTION >= 50 mcg/mL AT 12 HOURS AFTER INGESTION [id number] 06:02:00* Test Item Value Reference Range Interpretation Comments SALICYLATE (test code = SOCO) mg/dL 2.8-20.0 [id number] 06:02:00* Test Item Value Reference Range Interpretation Comments ALCOHOL (test code = ALC) < 3 mg/dL 0.0-3.0 N -- INTERPRETIVE DATA NOTE: POSITIVE SCREENING RESULTS SHOULD BE CONSIDERED PRESUMPTIVE.WHEN COLLECTED FOR MEDICAL PURPOSES ONLY. SPECIMEN WILL NOTBE COLLECTED BY CHAIN OF CUSTODY.IF A CONFIRMATION OF POSITIVE RESULTS IS DESIRED, ACONFIRMATION TEST MUST BE REQUESTED BY THE PHYSICIAN AT ANADDITIONAL CHARGE TO THE PATIENT. [id number] 05:57:00* Test Item Value Reference Range Interpretation Comments AMMONIA (test code = AMM) 137 umol/L 11-32 H BASIC METABOLIC [id number] 05:52:00* Test Item Value Reference Range Interpretation [...] code = CA) mg/dL 8.5-10.1 HEPATIC FUNCTION [id number] 05:52:00* Test Item Value Reference Range Interpretation [...] TOTAL (test code = ALKP) IUnit/L 45-117 [id number] 05:52:00* Test Item Value Reference Range Interpretation Comments LIPASE (test code = LIP) U/L 73.0-393.0 [id number] 05:52:00* Test Item Value Reference Range Interpretation Comments TROPONIN-I (test code = TROPI) ng/mL 0-0.045 [id number] 05:51:00* Test Item Value Reference Range Interpretation Comments GLUBED (test code = GLUBED) 139 mg/dL 74-106 H Performed by certified solder deposit operator at [facility] PROTHROMBIN [id number] 05:41:00* Test Item Value Reference Range Interpretation [...] (2.5-3.5) IS PATIENT ON ANTICOAGULANTS? NTHROMBOPLASTIN TIME [id number] 05:41:00* Test Item Value Reference Range Interpretation Comments THROMBOPLASTIN TIME PARTIAL (test code = PTT) 32.4 seconds 25.0-36. 5 N IS PATIENT ON ANTICOAGULANTS? NCBC W/O [id number] 05:37:00* Test Item Value Reference Range Interpretation [...] fL 6.7-11.0 H - XR CHEST 1 [id number] 05:34:00 FAX: Naseem Childs DO [place]: B St: REG Name: SUZI ENAMORADO [facility] : [birth year] Age/S: 64/F [address] [facility] Unit #: [id number] Loc: [place] [address] Phys: Naseem Childs DO Acct: [id number] Dis Date: Status: REG ER PHONE #: [phone] Exam Date: 05/30/2019520 FAX #: [phone] Reason: Abdominal Pain EXAMS: CPT CODE: [id number] XR CHEST 1 V 87858 AFTER HOURS SERVICE ON: 05/30/2019 5:34 AM [...] Trnscrd Date/Time/By: 05/30/2019 (0534) : By: SinaiMA50 Orig Print D/T: S: 05/30/2019 (0537) PAGE 1 [...] Neema Waller 05:17 - 05/30/2019; by Sandra BOWERS [facility] VENOUS BLOOD GAS O2 SAT. (test code [...] METHGB) 0.0 % 0.0-1.50 N ABD PARACENTESIS W/[id number] 16:30:18IMPRESSION: Successful ultrasound guided paracentesis. Dictated By: Denisse Montes De Oca DO, 04/02/2019 12:06 PM I have reviewed the study and agree with the findings in this report. Signed By: Raymond Diggs DO, 04/03/2019 4:30 PM Interface, Rad/Mammog In - 04/03/2019 4:35 PM CSTProcedure: Ultrasound Guided Paracentesis pbx operator: Dr. Denisse Montes De Oca DOAssistants: NoneStaff: Dr. Raymond Diggs DOPreoperative diagnosis: Abdominal ascites Post operative diagnosis: Abdominal ascites Conscious Sedation: None. [facility]. Fluoro time: None. Contrast used: None. EBL: Less than 5cc Specimen Obtained: 2.3 L of clear yellow ascitic fluid Blood administered: None. Implants: None. Condition at procedure completion:GoodDisposition:Discharged homeCPT procedure code: 88541 DISCUSSION: A timeout was performed. The patients [...] B y: Raymond Diggs DO, 04/03/2019 4:30 PM[place] [employer] GLUCOSE POC docked [id number] 10:46:00* Test Item Value Reference Range Interpretation Comments Glucose POC (test code = 50744007) 167 mg/dL 74-106 H Lab Interpretation (test code = 09996-5) [facility] [id number] 14:57:00* Test Item Value Reference Range Interpretation Comments Body Fluid Culture (test code = 611-4) No growth 3 days Gram Stain (test code = 664-3) No organisms seen [facility]/S PELVIS LTD [id number] 14:54:02IMPRESSION: Fluid containing left inguinal hernia with the presence of fat onValsalva maneuver. No evidence of bowel containing hernia. Signed By: Farhad Hughes, 02/26/2019 2:54 PM Interface, Rad/Mammog In - 02/26/2019 2:59 PM CSTUltrasound pelvis: Transabdominal CPT code: 56288Elwdmpo: left groin swelling evaluation for hernia, history [...] containing hernia.Signed By: Farhad Hughes, 02/26/2019 2:54 PMHarLocated within [facility] CenterDUPLEX DOPPLER ABD/PEL VASCULAR STUDY, COMPLETE 2019-02-26 14:54:02IMPRESSION: Fluid containing left inguinal hernia with the presence of fat onValsalva maneuver. No evidence of bowel containing hernia. Signed By: Farhad Hughes, 02/26/2019 2:54 PM Interface, Rad/Mammog In - 02/26/2019 2:59 PM CSTUltrasound pelvis: Transabdominal CPT code: 54193Uriiywm: left groin swelling evaluation for hernia, history [...] containing hernia.Signed By: Farhad Hughes, 02/26/2019 2:[address] [facility] [id number] 10:15:51IMPRESSION: 1. Cirrhosis, splenomegaly, and portal hypertension [...] this report.Signed By: Farhad Hughes, 02/24/2019 10:15 [facility] Comprehensive Metabolic [id number] 06:06:00* Test Item Value Reference Range Interpretation Comments Sodium (test code = 2951-2) 139 mmol/L 136-145 Potassium (test code = 2823-3) 3.1 mmol/L 3.5-5.1 L Chloride (test code = 2075-0) 104 mmol/L 98-107 CO2 (test code = 32152861) 30 mmol/L 21-31 Glucose (test code = 81411666) 208 mg/dL 70-110 H Calcium (test code = 88411888) 7.4 mg/dL 8.6-10.3 L Urea Nitrogen (test code = 30707313) 9.0 mg/dL 7-25 Creatinine (test code = 66271045) 0.6 mg/dL 0.6-1.2 Alkaline Phosphatase (test code = 31763388) 108 U/L 34-104 H ALT (test code = 52620014) 16 U/L 7-52 AST (test code = 66148557) 30 U/L 13-39 Total Protein (test code = 2885-2) 5.6 g/dL 6-8.3 L GFR, Estimated (test code = 79127269) >90 >=90 mL/min/1.73 m2 Albumin (test code = 85019-8) 2.0 g/dL 3.7-5.3 L Anion Gap (test code = 30645699) 5 mmol/L 5-16 Lab Interpretation (test code = 75568-6) Abnormal [facility] (without differential)2019-02-24 05:37:00* Test Item Value Reference [...] 32.7 g/dL 32-36 RDW (test code = 10340-3) 53.3 fL 36.4-46.3 H Platelet (test code = 777-3) 79 K/uL 150-400 L Mean Platelet Volume (test code = 74907-0) 12.8 fL 9.4-12.4 H Percent NRBC (test code = 13674274) 0.0 % Lab Interpretation (test code = 75209-8) [facility]normal [facility] Gsau5036-51-34 15:51:00* Test Item Value Reference Range Interpretation Comments Lactic Acid (test code = 22053182) 1.7 mmol/L 0.5-2.2 Lab Interpretation (test code = 51773-2) Normal [facility] HealthcareCBC/Ejqc0329-74-11 08:13:00* Test Item Value Reference Range Interpretation [...] 32.2 g/dL 32-36 RDW (test code = 85851-9) 52.4 fL 36.4-46.3 H Platelet (test code = 777-3) 84 K/uL 150-400 L Mean Platelet Volume (test code = 34862-6) 12.5 fL 9.4-12.4 H Percent NRBC (test code = 97731822) 0.0 % Neutrophil (test code = 770-8) 72.7 % 34-70 H Lymphs (test code = 736-9) 15.7 % 20-50 L Monocytes (test code = 5905-5) 9.5 % 5-12 Eos (test code = 713-8) 1.3 % 0.7-5 Basos (test code = 706-2) 0.4 % 0.1-1.2 Immature Granulocytes (test code = 96838188) 0.4 % 0-0.5 Neutrophils (Absolute) (test code = 44722673) 3.27 K/uL 1.56-6.1 3 Lymphs (Absolute) (test code = 35225036) 0.71 K/uL 1.18-3.74 L Monocytes(Absolute) (test code = 53230428) 0.43 K/uL 0.24-0.36 H Eos (Absolute) (test code = 55583617) 0.06 K/uL 0.04-0.36 Baso (Absolute) (test code = 06657953) 0.02 K/uL 0.01-0.08 Immature Grans (Abs) (test code = 00292010) 0.02 K/uL 0-0.03 Absolute NRBC (test code = 89855965) 0.00 K/uL Lab Interpretation (test code = 82423-4) Abnormal [facility] HealthcareKjcrejKgnrbxxsc1356-95-97 08:00:00* Test Item Value Reference Range Interpretation Comments Magnesium (test code = 06064543) 1.6 mg/dL 1.9-2.7 L Lab Interpretation (test code = 73600-4) Abnormal [facility][id number] 07:41:00* Test Item Value Reference Range Interpretation Comments PT (test code = 5902-2) 19.8 11.8- 15.0 Seconds H INR (test code = 34850550) 1.7 Refer to INR therapeutic ra nges 2.0 - 3.0 for moderate intensity anticoagulation2.5 - 3.5 for high intensity anticoagulation Lab Interpretation (test code = 19128-9) Abnormal [facility] [id number] 07:41:00* Test Item Value Reference Range Interpretation Comments PTT (test code = 89152782) 41.1 23.6- 36.4 Seconds H The recommended therapuetic range is an APTT 61-103 seconds which corresponds to 0.3-0.7 anti Xa u/ml. Lab Interpretation (test code = 47058-4) Abnormal [place] [address] LEAD [id number] 06:37:5612 LEAD EKG FOR [facility] Test Date: [id number] Name: SUZI SCANLON Department: [id number] ID: [id number] Room: 9OF12Shksbf: Supervisor [employer]: [id number]: 1955 Requested By: GRISEL Brown Number: [id number] Reading MD: Pasha Grover M.D. MeasurementsIntervals [place] Rate: 87 P: NV: 0 QRS: 9QRSD: 78 T: 16QT: 420 QTc: 507 Interpretive StatementsLIKELY ECTOPIC ATRIAL RHYTHMElectronically Signed On 02-23-2019 6:37:53 FLOOD CONTROL ENGINEER by Pasha Grover M.D.[facility] CenterFFERENTIAL, CELL [id number] 04:46:00* Test Item Value Reference Range Interpretation Comments Neutrophil (test code = 62642240) 10 % Lymphocyte (test code = 58333426) 15 % Monocyte (test code = 34300341) 15 % Macrophage (test code = 73775523) 53 % Mesothelial, Cell (test code = 89727806) 6 % Plasma Cell (test code = 05656340) 1 % Cells Counted (test code = 39124818) 100 [facility] HealthcareDifferential, [id number] 04:41:00* Test Item Value Reference Range Interpretation Comments Neutrophil (test code = 35004047) 83.0 % 34-70 H Lymphs (test code = 63009344) 8.0 % 20-50 L Monocytes (test code = 57916142) 7.0 % 5-12 Eos (test code = 56777148) 0.0 % 0.7-5 L Basos (test code = 27438707) 1.0 % 0.1-1.2 Metamyel (test code = 13684187) 1.0 % <=0.0 H Neutrophils (Absolute) (test code = 18387798) 4.32 K/uL 1.56-6.1 3 Lymphs (Absolute) (test code = 02713996) 0.42 K/uL 1.18-3.74 L Monocytes(Absolute) (test code = 10792988) 0.36 K/uL 0.24-0.36 Eos (Absolute) (test code = 42101420) 0.00 K/uL 0.04-0.36 L Baso (Absolute) (test code = 48709559) 0.05 K/uL 0.01-0.08 Ovalocyte (test code = 58172474) 2+ None seen A Schistocyte (test code = 70600722) 1+ None seen A Tear Drop Cell (test code = 46566109) 2+ None seen A Cells Counted (test code = 67215995) Lab Interpretation (test code = 37046-2) Abnormal [facility] Count, [id number] 02:51:00* Test Item Value Reference Range Interpretation Comments Volume (test code = 48417320) 3 mL Appearance (test code = 26973329) Clear Clear Calculated RBC-Body Fluid (test code = 18547960) 2325 /uL None seen WBC Body Fluid (test code = 70825142) 100 /uL Clots? (test code = 27839315) No [facility] HealthAlbumin, [id number] 01:38:00* Test Item Value Reference Range Interpretation Comments Albumin, Fld (test code = 35320452) <1.5 g/dL Reference interval study is not possible due to unavailable normal samples and the limited availability of published data. The reference range has not been established for body fluids. The test result should be integrated into the clinical context for interpretation. HUA (test code = HUA) Disclaimer:The performance c haracteristic of quantitative testing of body fluid using Adam [id number] has been reviewed and the performance of the method is considered acceptable for patient testing. This test was developed and its performance characteristic determined by [facility] laboratory. It has not been cleared or approved by the [place].S. Food and Drug Administration. The FDA has determined that such clearance of approval is not necessary. This test is used for clinical purposes. It should not be regarded as investigational or research. [facility] HealthGlucose, [id number] 01:38:00* Test Item Value Reference Range Interpretation Comments Glucose, Fld (test code = 66766194) 267 mg/dL Reference interval study is not possible due to unavailable normal samples and the limited availability of published data. The reference range has not been established for body fluids. The test result should be integrated into the clinical context for interpretation. HUA (test code = HUA) Disclaimer:The performance c haracteristic of quantitative testing of body fluid using Adam [id number] has been reviewed and the performance of the method is considered acceptable for patient testing. This test was developed and its performance characteristic determined by [facility] laboratory. It has not been cleared or approved by the I.S. Food and Drug Administration. The FDA has determined that such clearance of approval is not necessary. This test is used for clinical purposes. It should not be regarded as investigational or research. [facility] HealthcareLDH, [id number] 01:38:00* Test Item Value Reference Range Interpretation Comments LDH, Fld (test code = 40496316) 38 U/L Reference interval study is not possible due to unavailable normal samples and the limited availability of published data. The reference range has not been established for body fluids. The test result should be integrated into the clinical context for interpretation. HUA (test code = HUA) Disclaimer:The performance c haracteristic of quantitative testing of body fluid using Adam [id number] has been reviewed and the performance of the method is considered acceptable for patient testing. This test was developed and its performance characteristic determined by [facility]. It has not been cleared or approved by the [place].S. Food and Drug Administration. The FDA has determined that such clearance of approval is not necessary. This test is used for clinical purposes. It should not be regarded as investigational or research. [facility] HealthcareT Protein, [id number] 01:38:00* Test Item Value Reference Range Interpretation Comments Protein, Fluid (test code = 2881-1) <3.0 g/dL Reference interval study is not possible due to unavailable normal samples and the limited availability of published data. The reference range has not been established for body fluids. The test result should be integrated into the clinical context for interpretation. [facility] HealthcareLiver [id number] 00:09:00* Test Item Value Reference Range Interpretation Comments Bilirubin, Total (test code = 2885-2) 2.1 mg/dL 0.2-1.2 H Alkaline Phosphatase (test code = 11547735) 160 U/L 34-104 H AST (test code = 05687061) 41 U/L 13-39 H Direct Bilirubin (test code = 1968-7) 0.7 mg/dL 0-0.2 H ALT (test code = 37280001) 23 U/L 7-52 Albumin (test code = 46440-4) 2.3 g/dL 3.7-5.3 L Lab Interpretation (test code = 69936-7) Abnormal [facility]jel7031[facility]30 [facility]:06:[facility]* Test Item Value Reference Range Interpretation Comments Ammonia (test code = 36730629) 82.0 umol/L 16-53 H Lab Interpretation (test code = 66103-5) Abnormal [facility] TROPONIN I POC docked [id number] 23:38:00* Test Item Value Reference Range Interpretation Comments Troponin POC (test code = 84705160) 0.00 ng/mL 0-0.08 Physician Notified Lab Interpretation (test code = 09345-8) Normal [facility] VBG POC docked [id number] 23:31:00* Test Item Value Reference Range Interpretation Comments pH, Tip POC (test code = 91618249) 7.46 7.33-7.43 H HCO3, Tip POC (test code = 06900070) 26 mmol/L 22-26 TCO2 POC (test code = 81509606) 27 mmol/L 21-32 PO2, Venous POC (BKR) (test code = 34191400) 28 50- 75 mm Hg L pCO2,Tip POC (test code = 43002681) 36.9 38- 50 mmHg L Base Excess Tip POC (test code = 15196300) 2 mmol/L Sample Type (test code = 29335895) IVEN --- Lactic Acid POC (test code = 59943599) 2.93 mmol/L 0.4-2 H % Sat, Tip POC (test code = 68809248) 57 % Lab Interpretation (test code = 76119-2) Abnormal [facility] BMP POC docked [id number] 22:51:00* Test Item Value Reference Range Interpretation Comments Sodium POC (test code = 40157719) 139 mmol/L 136-145 Potassium POC (test code = 31985107) 3.5 mmol/L 3.5-5.1 Chloride POC (test code = 62700660) 99 mmol/L 98-107 TCO2 POC (test code = 06439138) 25 mmol/L 21-32 Urea Nitrogen POC (test code = 28652014) 9 mg/dL 7-18 Creatinine POC (test code = 51911019) 0.5 mg/dL 0.6-1.3 L Glucose POC (test code = 76575114) 307 mg/dL 74-106 H Ionized Calcium POC (test code = 87083390) 1.10 mmol/L 1.15-1.29 L GFR, Estimated (test code = 03903841) >90 >=90 mL/min/1.73 m2 Hemoglobin POC (test code = 77496299) 13.3 g/dL 12-16 Physician Notified Hematocrit POC (test code = 88532835) 39.0 % 37-47 Lab Interpretation (test code = 40397-3) Abnormal [facility] HealthcareHemoglobin [id number] 13:40:00* Test Item Value Reference Range Interpretation Comments Hemoglobin A1c (test code = 4548-4) 6.7 % 4.3-6.1 H Estimated Average Glucose (test code = 61857097) 146 mg/dL 70-11 0 H Lab Interpretation (test code = 92405-5) [facility] [id number] 15:16:18Bebeto Brown MD 01/09/2019 4:08 PMDiabetic Foot Exam was performed at 01/09/2019 3:41 PM. Right foot sensation is normal, right foot pulses are normal, right foot appearance is abnormal (thickended toe nails). Left foot sensation is normal, left foot pulses are normal, left foot appearance is abnormal (thickended toe nails). [facility]
[2020-01-08 15:04] LABS: BASOPHILS % 0.2 % (0.0-1.0); EOSINOPHILS % 0.4 % (0.0-6.0); HEMATOCRIT 35.1 % (34.2-44.1); HEMOGLOBIN 11.4 g/dL (12.0-16.0); LYMPHOCYTES # (AUTO) 0.5 (1.0-3.2); LYMPHOCYTES % 9.9 % (18.0-39.1); MEAN CORPUSCULAR HEMOGLOBIN 32.2 pg (28-32); MEAN CORPUSCULAR HGB CONC 32.5 g/dL (31-35); MEAN CORPUSCULAR VOLUME 99.2 fL (81-99); MONOCYTES # (AUTO) 0.3 (0.2-0.8); MONOCYTES % 6.5 % (4.4-11.3); NEUTROPHILS # (AUTO) 3.9 (2.1-6.9); NEUTROPHILS % 82.4 % (38.7-80.0); PLATELET COUNT 83 x10e3/uL (140-360); RED BLOOD COUNT 3.54 x10e6/uL (3.6-5.1); RED CELL DISTRIBUTION WIDTH 15.5 % (11.7-14.4)
[2020-01-08 15:25] LABS: ALANINE AMINOTRANSFERASE 20 IU/L (0-55); ALBUMIN 2.3 g/dL (3.5-5.0); ALBUMIN/GLOBULIN RATIO 0.5 (0.8-2.0); ALKALINE PHOSPHATASE 112 IU/L (40-150); ANION GAP 11.6 mmol/L (8-16); BLOOD UREA NITROGEN 7 mg/dL (7-26); BUN/CREATININE RATIO 11 (6-25); CALCIUM 7.8 mg/dL (8.4-10.2); CARBON DIOXIDE 23 mmol/L (22-29); CHLORIDE 107 mmol/L (98-107); CREATININE, SERUM 0.66 mg/dL (0.57-1.11); EST GLOMERULAR FILTRATION RATE > 60 ML/MIN (60-); GLUCOSE 118 mg/dL (74-118); POTASSIUM 3.6 mmol/L (3.5-5.1); SODIUM 138 mmol/L (136-145)
--- NOTE | 2020-01-08 15:43 | Diagnostic Imaging Report ---
CT of the abdomen and pelvis, without contrast. History: Abdominal pain. Comparison: CT abdomen/pelvis from 08/04/2019. Technique: Multidetector CT scanning of the abdomen and pelvis was performed from the level of the lung bases to the inferior pubic rami without the use of contrast material. Coronal and sagittal multiplanar reformations were obtained. RADIATION DOSE: Total DLP: 267.28 mGy*cm Dose modulation, iterative reconstruction, and/or weight based adjustment of the mA/kV was utilized to reduce the radiation dose to as low as reasonably achievable. FINDINGS: Linear opacities noted within the right lower lobe suggestive of subsegmental atelectasis. The remaining visualized intrathoracic contents are unremarkable. There is a large volume of simple appearing abdominopelvic ascites present. The liver demonstrates a nodular contour compatible with cirrhosis. No focal hepatic abnormality is identified on this noncontrast enhanced examination. There is stable mild distention of the gallbladder containing calcified stones. Findings are unchanged from the prior examination. There is no biliary ductal dilatation. The spleen is prominent measuring up to 13.3 cm in length. The stomach, pancreas, and bilateral adrenal glands demonstrate an unremarkable noncontrast appearance. The kidneys are normal in size and location. Excretion of contrast material is noted within the collecting systems bilaterally and urinary bladder suggestive of recent prior intravenous contrast administration. There is no evidence for nephrolithiasis or hydronephrosis. The ureters are grossly unremarkable. The urinary bladder demonstrates no significant abnormalities. The uterus and adnexa and straight no significant abnormalities. The left The abdominal aorta is normal in course and caliber with atherosclerotic lesions with coarse and branch vessels. The IVC is normal in caliber. Please note evaluation of the bowel is limited without the use of enteric contrast material. There is mild wall thickening of loops of small and large bowel likely reflecting portal colopathy/enteropathy. There is no evidence for bowel obstruction or intraperitoneal free air. No abnormally enlarged lymph nodes are identified within the abdomen or pelvis. There is a fat and ascitic fluid containing ventral hernia present, as noted on the prior examination. The osseous structures demonstrates stable degenerative changes without evidence for acute fracture or destructive process. IMPRESSION: CT findings compatible with cirrhosis and sequela of portal hypertension including splenomegaly and large volume of ascites. Wall thickening noted of loops of small and large bowel which is favored to reflect portal colopathy/enteropathy. No evidence for bowel obstruction or perforation. Cholelithiasis. Ventral hernia containing mesenteric fat and ascitic fluid again noted. Signed by: Dr. Nelson Saucedo MD on 01/08/2020 3:39 PM
[2020-01-08] MEDS ORDERED: DIPHENHYDRAMINE HCL INJ 50 MG/ML VIAL IV ONE (16:00)
[2020-01-08] MEDS ORDERED: SODIUM CHLORIDE 0.9% 250ML 250 ML ONE (16:00)
[2020-01-08] MEDS ORDERED: HALOPERIDOL LACTATE 5 MG/ML VIAL IV ONE (16:00)
--- OUTSIDE RECORDS SUMMARY | 2020-01-08 16:23 | XMS REPORT | Clinical Summary ---
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 [...] Comments Vital Sign 182/95 04/02/2019 1:00 PM FLORAL ASSOCIATE Blood Pressure 78 04/02/2019 1:00 PM FLORAL ASSOCIATE Pulse 36.9 C (98.4 F) 04/02/2019 1:00 PM FLORAL ASSOCIATE Temperature 18 04/02/2019 1:00 PM FLORAL ASSOCIATE Respiratory Rate 98% 04/02/2019 1:00 PM FLORAL ASSOCIATE Oxygen Saturation - - Inhaled Oxygen Concentration 50.8 kg (112 lb) 04/02/2019 8:00 AM FLORAL ASSOCIATE Weight 149.9 cm (4' 11") 04/02/2019 8:00 AM FLORAL ASSOCIATE Height 22.62 04/02/2019 8:00 AM FLORAL ASSOCIATE Body Mass Index Plan of Treatment Health [...] Cirrhosis of liver with W/IMAGING 12:03 PM FLORAL ASSOCIATE ascites, unspecifie d hepatic cirrhosis type GLUCOSE POC Routine 04/02/2019 8:58 AM FLORAL ASSOCIATE U/S PELVIS LTD NON-OB Routine 02/26/2019 Groin sw elling 1:28 PM FLORAL ASSOCIATE DUPLEX DOPPLER ABD/PEL Routine 02/26/2019 Groin s welling VASCULAR STUDY, COMPLETE 1:28 PM FLORAL ASSOCIATE GLUCOSE POC Routine 02/24/2019 8:48 AM FLORAL ASSOCIATE CBC (WITHOUT Routine 02/24/2019 DIFFERENTIAL) 3:35 AM FLORAL ASSOCIATE COMPREHENSIVE METABOLIC Routine 02/24/2019 PANEL 3:35 AM FLORAL ASSOCIATE GLUCOSE POC Routine 02/23/2019 8:[address] ABDOMEN AND PELVIS [place] 02/23/2019 Generali zed abdominal CONTRAST 6:16 PM FLORAL ASSOCIATE pain LACTIC ACID STAT 02/23/2019 2:37 PM FLORAL ASSOCIATE INFUSION PUMP Routine 02/23/2019 2:29 PM FLORAL ASSOCIATE GLUCOSE POC Routine 02/23/2019 12:56 PM FLORAL ASSOCIATE GLUCOSE POC Routine 02/23/2019 9:24 AM FLORAL ASSOCIATE CBC Routine 02/23/2019 6:21 AM FLORAL ASSOCIATE PTT Routine 02/23/2019 6:21 AM FLORAL ASSOCIATE PT/INR Routine 02/23/2019 6:21 AM FLORAL ASSOCIATE CBC/DIFF Routine 02/23/2019 6:21 AM FLORAL ASSOCIATE MAGNESIUM Routine 02/23/2019 6:21 AM FLORAL ASSOCIATE COMPREHENSIVE METABOLIC Routine 02/23/2019 PANEL 6:21 AM FLORAL ASSOCIATE SEQUENTIAL COMPRESSION Routine 02/23/2019 PUMP 5:57 AM FLORAL ASSOCIATE FLUID CULTURE AND GRAM STAT 02/23/2019 STAIN 12:33 AM FLORAL ASSOCIATE DIFFERENTIAL, CELL COUNT STAT 02/23/2019 12:32 AM FLORAL ASSOCIATE CELL COUNT, BODY FLUID STAT 02/23/2019 12:32 AM FLORAL ASSOCIATE LDH, FLD STAT 02/23/2019 12:32 AM FLORAL ASSOCIATE GLUCOSE, FLD STAT 02/23/2019 12:32 AM FLORAL ASSOCIATE T PROTEIN, FLD STAT 02/23/2019 12:32 AM FLORAL ASSOCIATE ALBUMIN, FLD STAT 02/23/2019 12:32 AM FLORAL ASSOCIATE CELL COUNT, FLUID STAT 02/23/2019 12:32 AM FLORAL ASSOCIATE TROPONIN I POC Routine 02/22/2019 11:18 PM FLORAL ASSOCIATE TROPONIN I POC Routine 02/22/2019 11:14 PM FLORAL ASSOCIATE VBG POC Routine 02/22/2019 11:07 PM FLORAL ASSOCIATE AMMONIA STAT 02/22/2019 11:02 PM FLORAL ASSOCIATE LIVER PROFILE STAT 02/22/2019 11:02 PM FLORAL ASSOCIATE PT/INR STAT 02/22/2019 11:02 PM FLORAL ASSOCIATE BMP POC Routine 02/22/2019 10:27 PM FLORAL ASSOCIATE DIFFERENTIAL, MANUAL-WAM STAT 02/22/2019 10:22 PM FLORAL ASSOCIATE CBC STAT 02/22/2019 10:22 PM FLORAL ASSOCIATE CBC/DIFF STAT 02/22/2019 10:22 PM FLORAL ASSOCIATE ECHG EKG PROC 12 LEAD Routine 02/22/2019 EKG; TRACING ONLY 10:13 PM FLORAL ASSOCIATE HEMOGLOBIN A1C Routine 01/09/2019 Type 2 diabetes mellitus 3:56 PM CDT with hyperglycemia, without long-term current use of insulin DIABETIC FOOT EXAM Routine 01/09/2019 Type 2 diab etes mellitus 3:16 PM CDT with hyperglycemia, without long-term current use of insulin after 01/07/2019 Results * ABD PARACENTESIS W/IMAGING (04/02/2019 12:03 PM FLORAL ASSOCIATE) Specimen Impressions Performed At IMPRESSION: SMS Successful ultrasound guided paracentes is. Dictated By: Denisse Montes De Oca DO, 0 12:06 PM I have reviewed the study and agree wit h the findings in this report. Signed By: Raymond Diggs DO, 04/03/2019 4:30 PM Narrative Performed At Procedure: Ultrasound Guided Paracentesis [facility] fork operator: Dr. Denisse Montes De Oca DO [...] procedure completion:Good Disposition:Discharged home CPT procedure code: 27102 DISCUSSION: A timeout was performed. Th e [...] Interface, Rad/Mammog In - 04/03/2019 4:35 PM FLORAL ASSOCIATE Procedure: Ultrasound Guided Paracentesis fork operator: Dr. Denisse Montes De Oca DO [...] procedure completion:Good Disposition:Discharged home CPT procedure code: 80995 DISCUSSION: A timeout was performed. The patients [...] DO, 04/03/2019 4:30 PM Performing Organization Address [facility] one Number [facility] * POCT GLUCOSE POC docked device (04/02/2019 8:58 AM FLORAL ASSOCIATE) Only the most recent of 5 results within the time period is included. Glucose POC 167 (H) 74 - 106 mg/dL [facility] Specimen Blood Performing Organization Address [facility] one Number [facility] [address] [place] [address] * U/S PELVIS LTD NON-OB (02/26/2019 1:28 PM FLORAL ASSOCIATE) Specimen Impressions Performed At IMPRESSION: [facility] Fluid containing left inguinal hernia w ith the presence of fat on Valsalva maneuver. No evidence of bowel containing hernia. Signed By: Farhad Hughes, 02/26/2019 2 :54 PM Narrative Performed At Ultrasound pelvis: Transabdominal SMS CPT code: 71730 History: left groin swelling evaluation for hernia, [...] Interface, Rad/Mammog In - 02/26/2019 2:59 PM FLORAL ASSOCIATE Ultrasound pelvis: Transabdominal CPT code: 52633 History: left groin swelling evaluation for hernia, [...] Performing Organization Address City/State/Zipcode Ph one Number [facility] * DUPLEX DOPPLER ABD/PEL VASCULAR STUDY, COMPLETE (02/26/2019 1:28 PM FLORAL ASSOCIATE) Specimen Impressions Performed At IMPRESSION: [facility] Fluid containing left inguinal hernia w ith the presence of fat on Valsalva maneuver. No evidence of bowel containing hernia. Signed By: Farhad Hughes, 02/26/2019 2 :54 PM Narrative Performed At Ultrasound pelvis: Transabdominal [facility] CPT code: 34621 History: left groin swelling evaluation for hernia, [...] Interface, Rad/Mammog In - 02/26/2019 2:59 PM FLORAL ASSOCIATE Ultrasound pelvis: Transabdominal CPT code: 14183 History: left groin swelling evaluation for hernia, [...] * Comprehensive Metabolic Panel (02/24/2019 3:35 AM FLORAL ASSOCIATE) Only the most recent of 2 results [...] [facility] Specimen Blood Performing Organization Address [facility] one Number [facility] [address] [place] [address] * CBC (without differential) (02/24/2019 3:35 AM FLORAL ASSOCIATE) WBC 4.6 4.5 - 11.0 K/uL [facility] [...] [facility] Specimen Blood Performing Organization Address [facility] one Number [facility] [address] [place] [address] [phone] * CT ABDOMEN AND PELVIS CONTRAST (02/23/2019 6:16 PM FLORAL ASSOCIATE) Specimen Impressions Performed At IMPRESSION: SMS 1. [...] Interface, Rad/Mammog In - 02/24/2019 10:20 AM FLORAL ASSOCIATE EXAM: CT Abdomen and Pelvis WITH contrast [...] Hughes, 02/24/2019 10:15 AM Performing Organization Address [facility] one Number SMS * Lactic Acid (02/23/2019 2:37 PM FLORAL ASSOCIATE) Lactic Acid 1.7 0.5 - 2.2 mmol/L [facility] Specimen Blood Performing Organization Address [facility] one Number [facility] [address] [place] [address] * CBC/Diff (02/23/2019 6:21 AM FLORAL ASSOCIATE) Only the most recent of 2 results [...] (H) 0.24 - 0.36 K/uL [facility] Eos (Absolute) 0.06 0.04 - 0.36 K/uL [facility] Baso (Absolute) 0.02 0.01 - 0.08 K/uL [facility] Immature Grans 0.02 0.00 - 0.03 K/uL [facility] (Abs) [facility] Absolute NRBC 0.00 K/uL [facility] Specimen Blood Performing Organization [facility] one Number [facility] [address] [place] [address] * PTT (02/23/2019 6:21 AM FLORAL ASSOCIATE) PTT 41.1 (H) 23.6 - 36.4 Seconds [facility] Comment: LABORAT[facility] The recommended therapuetic range is an APTT 61-103 seconds which corresponds to 0.3-0.7 anti Xa u/ml. Specimen Blood Performing Organization [facility] one Number [facility] [address] [place] [address] * PT/INR (02/23/2019 6:21 AM FLORAL ASSOCIATE) Only the most recent of 2 results within the time period is included. Pathologist [facility] PT 19.8 (H) 11.8 - 15.0 Seconds [facility] INR 1.7 Refer to INR [facility] Comment: therapeutic ranges LABORATORY 2.0 - 3.0 for moderate intensity anticoagulation 2.5 - 3.5 for high intensity anticoagulation Specimen Blood Performing Organization [facility] one Number [facility] [address] [place] [address] [phone] * Magnesium (02/23/2019 6:21 AM FLORAL ASSOCIATE) Pathologist [facility] Magnesium 1.6 (L) 1.9 - 2.7 mg/dL [facility] Specimen Blood Performing Organization [facility] one Number [facility] [address] [place] [address] * Fluid Culture and Gram Stain (02/23/2019 12:33 AM FLORAL ASSOCIATE) Pathologist [facility] Body Fluid No growth 3 days [facility] Culture [facility] Gram Stain 1+ WBCs [facility] Gram Stain No organisms seen [facility] Specimen Body Fluid - Peritoneal cavity Performing Organization [facility] one Number [facility] [address] [place], [place] [phone] * DIFFERENTIAL, CELL COUNT (02/23/2019 12:32 AM FLORAL ASSOCIATE) Pathologist [facility] Neutrophil 10 % [facility] Lymphocyte 15 % [facility] Monocyte 15 % [facility] Macrophage 53 % [facility] Mesothelial, 6 % [facility] Plasma Cell 1 % [facility] Cells Counted 100 [facility] Specimen Body Fluid - Peritoneum Performing Organization Address [facility] one Number [facility] [address] [place] [address] * Cell Count, Fluid (02/23/2019 12:32 AM FLORAL ASSOCIATE) Volume 3 mL [facility] Appearance Clear Clear [facility] Calculated 2,325 None seen /uL [facility] RBC-Body Fluid [facility] WBC Body Fluid 100 /uL [facility] Clots? No [facility] Specimen Body Fluid - Peritoneum Performing Organization Address [facility] one Number [facility] [address] [place] [address] [phone] * T Protein, Fld (02/23/2019 12:32 AM FLORAL ASSOCIATE) Protein, Fluid <3.0 g/dL [facility] Comment: LABORATORY Reference interval study is not possible due to unavailable normal samples and the limited availability of published data. The reference range has not been established for body fluids. The test result should be integrated into the clinical context for interpretation. Specimen Body Fluid - Peritoneal cavity Performing Organization Address [facility] one Number [facility] [address] [place] [address] [phone] * LDH, Fld (02/23/2019 12:32 AM FLORAL ASSOCIATE) LDH, Fld 38 U/L [facility] Comment: LABORATORY Reference interval study is not possible due to unavailable normal samples and the limited availability of published data. The reference range has not been established for body fluids. The test result should be integrated into the clinical context for interpretation. Specimen Body Fluid - Peritoneal cavity Narrative Performed At Disclaimer: [facility] The performance characteristic of quant itative testing of body fluid using Adam [id number] has been reviewed and th e performance of the method is considered acceptable for patient testing. This test was developed and its performance characteristic determined by [facility] iochemistry laboratory. It has not been cleared or approved by the I.S. Food an d Drug Administration. The FDA has determined that such clearance of appro alesha is not necessary. This test is used for clinical purposes. It should not be regarded as investigational or research. Performing Organization Address [facility] one Number [facility] [address] [place] [address] [phone] * Glucose, Fld (02/23/2019 12:32 AM FLORAL ASSOCIATE) Glucose, Fld 267 mg/dL [facility] Comment: LAB[facility]ATORY Reference interval study is not possible due to unavailable normal samples and the limited availability of published data. The reference range has not been established for body fluids. The test result should be integrated into the clinical context for interpretation. Specimen Body Fluid - Peritoneal cavity Narrative Performed At Disclaimer: [facility] The performance characteristic of quant itative testing of body fluid using Adam [id number] has been reviewed and th e performance of the method is considered acceptable for patient testing. This test was developed and its performance characteristic determined by [facility] laboratory. It has not been cleared or approved by the I.S. Food an d Drug Administration. The FDA has determined that such clearance of appro alesha is not necessary. This test is used for clinical purposes. It should not be regarded as investigational or research. Performing Organization Address [facility] one Number [facility] [address] [place] [address] [phone] * Albumin, Fluid (02/23/2019 12:32 AM FLORAL ASSOCIATE) Albumin, Fld <1.5 g/dL [facility] Comment: LABORATORY Reference interval study is not possible due to unavailable normal samples and the limited availability of published data. The reference range has not been established for body fluids. The test result should be integrated into the clinical context for interpretation. Specimen Body Fluid - Peritoneal cavity Narrative Performed At Disclaimer: [facility] The performance characteristic of quant itative testing of body fluid using Adam [id number] has been reviewed and th e performance of the method is considered acceptable for patient testing. This test was developed and its performance characteristic determined by [facility] [employer] laboratory. It has not been cleared or approved by the I.S. Food an d Drug Administration. The FDA has determined that such clearance of appro alesha is not necessary. This test is used for clinical purposes. It should not be regarded as investigational or research. Performing Organization Address [facility] one Number [facility] [address] [place] [address] * POCT TROPONIN I POC docked device (02/22/2019 11:18 PM FLORAL ASSOCIATE) Only the most recent of 2 results within the time period is included. Troponin POC 0.00Comment: Physician 0.00 - 0.08 ng/mL [facility] Notified [facility] Specimen Blood, venous Performing Organization Address [facility] one Number [facility] [address] [place] [address] * POCT VBG POC docked device (02/22/2019 11:07 PM FLORAL ASSOCIATE) pH, Tip POC 7.46 (H) 7.33 - 7.43 [facility] HCO3, Tpi POC 26 22 - 26 mmol/L [facility] [...] LABORATORY Specimen Blood, venous Performing Organization Address [facility] one Number [facility] [address] [place] [address] * Liver Profile (02/22/2019 11:02 PM FLORAL ASSOCIATE) Total Protein 6.5 6.0 - 8.3 g/dL [...] [facility] Specimen Blood Performing Organization Address [facility] one Number [facility] [address] [place] [address] [phone] * Ammonia (02/22/2019 11:02 PM FLORAL ASSOCIATE) Ammonia 82.0 (H) 16.0 - 53.0 umol/L [facility] Specimen Blood Performing Organization Address [facility] one Number [facility] [address] [place] [address] * POCT BMP POC docked device (02/22/2019 10:27 PM FLORAL ASSOCIATE) Sodium POC 139 136 - 145 mmol/L [facility] Potassium POC 3.5 3.5 - 5.1 mmol/L [facility] Chloride POC 99 98 - 107 mmol/L [facility] TCO2 POC 25 21 - [...] LABORATORY Specimen Blood, venous Performing Organization Address [facility] one Number [facility] [address] [place] [address] * Differential, Manual (02/22/2019 10:22 PM FLORAL ASSOCIATE) Neutrophil 83.0 (H) 34.0 - 70.0 % [...] 0.36 0.24 - 0.36 K/uL [facility] Eos (Absolute) 0.00 (L) 0.04 - 0.36 K/uL [facility] Baso (Absolute) 0.05 0.01 - 0.08 K/uL [facility] Ovalocyte 2+ (A) None seen [facility] Schistocyte 1+ (A) None seen [facility] Tear Drop Cell 2+ (A) None seen [facility] Cells Counted [facility] Specimen Blood Performing Organization Address [facility] one Number [facility] [address] [place] [address] * 12 LEAD EKG (02/22/2019 10:13 PM FLORAL ASSOCIATE) 12 LEAD EKG FOR [facility] Test Date: 2019-02-22 Pat Name: LUCY SCANLON Department: [id number] Room: [facility] Gender: F [employer]: [id number] : 1955 Requested By: KELLEN Allison Order Number: [id number] Reading MD: Pasha Grover M.D. Measurements Intervals [place] Rate: 87 P: MA: 0 QRS: 9 QRSD: 78 T: 16 QT: 420 QTc: 507 Interpretive Statements LIKELY ECTOPIC ATRIAL RHYTHM Electronically Signed On 02-23-2019 6:37:53 FLORAL ASSOCIATE by Pasha Grover M.D. Specimen Performing Organization Address [facility] one Number [facility] * Hemoglobin A1C (01/09/2019 3:56 PM CDT) Hemoglobin A1c 6.7 (H) 4.3 - 6.1 % [facility] Estimated 146 (H) 70 - 110 mg/dL [facility] Average Glucose LABORATORY Specimen Blood Performing Organization Address [facility] one Number [facility] [address] [place] [address] * DIABETIC FOOT EXAM (01/09/2019 3:16 PM [...] Address Plan / Dates Group [employer] [facility] [employer] xxxxxxxx 2019-1 [facility] [address] [place] [address] [facility] [employer] SELF[employer]PAY xxxxxx 2019- [phone] [address] [place] [address] (Work) Advance Directives Date Inactivated Comments Code Status Date Activated 05/20/2019 8:44 PM Full Code 04/02/2019 9:17 AM 02/24/2019 1:59 PM Full Code 02/23/2019 5:33 AM 03/28/2018 6:28 PM Full Code 03/25/2018 12:04 AM 01/08/2018 12:32 PM Full Code 01/07/2018 12:58 PM 11/08/2016 5:10 PM Allow Natural 11/07/2016 9:22 AM
--- OUTSIDE RECORDS SUMMARY | 2020-01-08 16:23 | XMS REPORT | Clinical Summary ---
Author Author [facility] Organization [facility] Address Unknown Phone Unavailable Care Team Providers Care Chicken Dresser Name Role Phone Asked, No Pcp PCP [...] with nausea, unspecified vomiting type; Hypokalemia 11/19/2019 [facility] General Surgery - Encounter 11/28/2019 11/19/2019 Travel Donell Lemons 10/21/2019 Documentation Transplant Donell Lemons 10/19/2019 Documentation Transplant Alireza Kelly MD Arriaga, Michael, MD Nguyen, Thuyen T., MD 10/08/2019 [facility] Internal Al dicine - Encounter 10/10/2019 10/08/2019 Travel Wendy [...] MESH; PARACENTESIS; Surgeon: Amari Carlisle MD; Location: [facility]; [facility] e: General; Laterality: Left; Medical devices from [...] ot Implanted Type Area Manufactur er 04/21/2024 [id number] / / [id number] Plug Hrnia Rpr Perfix Med Surgical N/A: N/A CR B PARTH 1.3x1.55in - [id number] Mesh or Implanted: Qty: 1 on 11/20/2019 by Kathrine Zambrano MD at [facility] Products Procedures Comments Procedure Name Priority Date/Time [...] PATHOLOGY Routine 11/20/2019 REQUEST 6:26 PM CDT MI AN ELECTIVE Routine 11/20/2019 ENDOTRACHEAL AIRWAY 5:41 [...] results within the time period is included. [facility] POC glucose 239 (H) 65 - 99 mg/dL [place] Comment: FAITH Correctional Counselor/Case Manager Name: [facility] Device ID: [id number] Chartable: [facility] Notified RN Specimen Blood Performing Organization Address City/State/ZIP Code P arabella Number [facility] DEPARTMENT OF [address] [place] [id number] PATHOLOGY AND GENOMIC MEDICINE [place] FAITH [address] [place] [address] * Estimated GFR (11/28/2019 5:30 AM CDT) Only the most recent of 14 results within the time period is included. [facility] Estimated GFR >=90 mL/min/1.73 m2 [place] Comment: [facility] HOSPITAL Interpretation G1 >=90 Normal or [...] published in 2014. Specimen Performing Organization Address City/[facility]/ZIP Code P arabella Number [facility] [place] [place] [address] PATHOLOGY AND GENOMIC MEDICINE [address] * CBC hemogram (11/28/2019 5:30 AM CDT) Only the most recent of 6 results within the time period is included. Pathologist [facility] WBC 7.78 4.50 - 11.00 k/uL [facility] RBC 3.16 (L) 4.20 - 5.50 m/uL [facility] HGB 10.5 (L) 12.0 - 16.0 g/dL [facility] HCT 31.0 (L) 37.0 - 47.0 % [facility] MCV 98.1 82.0 - 100.0 fL [facility] MCH 33.2 27.0 - 34.0 pg [facility] MCHC 33.9 31.0 - 37.0 g/dL [facility] RDW - SD 55.0 37.0 - 55.0 fL [facility] MPV 13.1 8.8 - 13.2 fL [facility] Platelet count 91 (L) 150 - 400 k/uL [facility] Nucleated RBC 0.30 /100 WBC [facility] Specimen Blood Performing Organization Address City/[facility] P arabella Number [facility] [place] [address] PATHOLOGY AND GENOMIC MEDICINE [address] * Hepatic function panel (11/28/2019 5:30 AM CDT) Only the most recent of 6 results within the time period is included. Pathologist [facility] Albumin 2.7 (L) 3.5 - 5.0 g/dL [facility] Total bilirubin 1.1 0.0 - 1.2 mg/dL [facility] Bilirubin 0.4 (H) 0.0 - 0.3 mg/dL [place] direct [facility] Alkaline 116 (H) 35 - 104 U/L [place] phosphatase [facility] Protein 6.2 (L) 6.3 - 8.3 g/dL [place] Comment: [facility] 4.6-7.0 g/dL 1 week 4.4-7.6 g/dL 7 months-1year 5.1-7.3 g/dL 1-2 years 5.6-7.5 g/dL >3 years 6.0-8.0 g/dL 18-150 6.3-8.3 g/dL ALT 14 5 - 50 U/L [facility] AST 29 10 - 35 U/L [facility] Specimen Blood Performing Organization Address City/[facility]/ZIP Code P [place] Number [facility] [place] [place] [address] PATHOLOGY AND GENOMIC MEDICINE [address] * Basic metabolic panel (11/28/2019 5:30 AM CDT) Only the most recent of 8 results within the time period is included. Sodium 138 135 - 148 mEq/L [facility] Potassium 3.3 (L) 3.5 - 5.0 mEq/L [facility] Chloride 102 98 - 112 mEq/L [facility] CO2 25 24 - 31 mEq/L [facility] Anion gap 11@ANIO 7 - 15 mEq/L [facility] BUN 6 (L) 8 - 23 mg/dL [facility] Creatinine 0.58 0.50 - 0.90 mg/dL [facility] Glucose 66 65 - 99 mg/dL [facility] Calcium 8.5 (L) 8.8 - 10.2 mg/dL [facility] Specimen Blood Performing Organization Address City/[facility] P arabella Number [facility] [place] [place] [address] PATHOLOGY AND GENOMIC MEDICINE [address] * MRI Abdomen W Wo Contrast [...] Organization Address City/State/ZIP Code P arabella Number [facility] [address] [place] [address] * Blood culture, aerobic & anaerobic (11/27/2019 2:05 AM CDT) Only the most recent of 6 results within the time period is included. Blood culture No growth after 5 days of [place] isolate incubation. [facility] Comment: HOSPITAL Specimen Information Specimen Source: Blood Specimen Site: UNSPECIFIED Specimen Blood Performing Organization Address City/[facility] Code P [place] Number [facility] DEPARTMENT OF [address] [place] [id number] PATHOLOGY AND GENOMIC MEDICINE [place] FAITH [address] [place] [address] HOSPITAL * CT Abdomen Pelvis W Contrast [...] exclude enteritis/colitis is advised. Question of gastritis. [facility]-[id number] Procedure Note [facility], Radiology Results Incoming - 11/26/2019 11:15 PM [...] exclude enteritis/colitis is advised. Question of gastritis. [facility]-[id number] Performing Organization Address City/State/ZIP Code P arabella Number [facility] [address] [place] [address] * US Abdominal Paracentesis Imaging (11/26/2019 4:28 [...] Estimated blood loss: Less than 10 cc [id number] Procedure Note Interface, Radiology Results Incoming - [...] Estimated blood loss: Less than 10 cc [facility]-[id number] Performing Organization Address [facility] [place] Number [facility] [address] [place] [address] * Aerobic culture (11/26/2019 4:02 PM CDT) Only the most recent of 2 results within the time period is included. Aerobic culture No growth after 3 days. [place] isolate Comment: FAITH Specimen Information HOSPITAL Specimen Source: Peritoneal fluid Specimen Site: Abdomen Specimen Peritoneal fluid - Abdomen Performing Organization Address City/[facility]/ZIP [facility] P arabella Number [facility] DEPARTMENT OF [address] [place] [address] PATHOLOGY AND GENOMIC MEDICINE [place] FAITH [address] [place] [address] HOSPITAL * Gram stain (11/26/2019 4:02 PM CDT) Only the most recent of 2 results within the time period is included. Gram stain Few WBC's [place] isolate No organisms seen [facility] Comment: HOSPITAL Specimen Information Specimen Source: Peritoneal fluid Specimen Site: Abdomen Specimen Peritoneal fluid - Abdomen Performing Organization Address [facility] P [place] Number [facility] [place] [place] [address] PATHOLOGY AND GENOMIC MEDICINE [place] FAITH [address] [place] [address] HOSPITAL * Anaerobic culture (11/26/2019 4:02 PM CDT) Only the most recent of 2 results within the time period is included. Pathologist [facility] Anaerobic No anaerobic organisms [place] culture isolate isolated. [facility] Comment: HOSPITAL Specimen Information Specimen Source: Peritoneal fluid Specimen Site: Abdomen Specimen Peritoneal fluid - Abdomen Performing Organization Address City/[facility]/ZIP Code P [place] Number [facility] DEPARTMENT OF [address] [place] [address] PATHOLOGY AND [facility] MEDICINE [address] * Cell count and differential, body fluid (11/26/2019 4:02 PM CDT) Only the most recent of 2 results within the time period is included. Pathologist [facility] Misc fluid type Paracentesis [facility] Color, fluid Yellow [facility] Appearance, Clear [facility] RBC, fluid SEE COMMENTComment: 1+ (0 - /CMM HO USTON 500 RBC/CMM) [facility] Nucleated 229 /CMM [place] cells, [facility] Fluid See Diff [place] mononuclear [facility] Neutrophils, 21 % [facility] Lymphocytes, 7 % [facility] Mesothelial 1 % [place] cells, [facility] Macrophages, 69 % [facility] Plasma cells, 2 % [facility] Specimen Fluid Performing Organization Address [facility] P arabella Number [facility] [place] [address] PATHOLOGY [facility] MEDICINE [address] * Protein, misc fluid (11/26/2019 4:02 PM CDT) Only the most recent of 2 results within the time period is included. Fluid type Paracentesis [facility] Protein, fluid 1.0 g/dL [place] Comment: FAITH The reference interval(s) and HOSPITAL other method performance specifications have not been established for this body fluid. The test results must be integrated into the clinical context for interpretation. This test has been modified from the manufacturers instructions. The performance characteristics were determined by [facility] in a manner consistent with CLIA requirements. This test has not been cleared or approved by the U.S. Food and Drug Administration. Specimen Fluid Performing Organization Address City/[facility]/ZIP Code P ar[place] Number [facility] [place] [address] PATHOLOGY AND GENOMIC MEDICINE [address] * Prothrombin time with INR (11/26/2019 4:30 AM CDT) Only the most recent of 8 results within the time period is included. Prothrombin 18.8 (H) 11.5 - 14.[address] [facility] INR 1.6 [place] Comment: FAITH [facility] International Normalized HOSPITAL Ratio (INR) is a therapeutic monitoring tool for patients who are stable on oral anticoagulant therapy. An INR of 2.0-3.0 is suggested for deep vein thrombosis/pulmonary embolism. Specimen Blood Performing Organization Address City/[facility] Code P [place] Number [facility] [place] [address] PATHOLOGY AND [facility] MEDICINE [address] * Urinalysis screen and microscopy, with reflex to culture (11/25/2019 9:05 AM CDT) Specimen site Clean catch [facility] Color, UA Angeline [facility] Appearance, UA Clear [facility] Specific 1.031 1.001 - 1.035 [place] [facility] pH, UA 5.0 5.0 - 8.5 [facility] Protein, UA 1+ (A) Negative [facility] Glucose, UA Negative Negative [facility] Ketones, UA Negative Negative [facility] Bilirubin, UA Positive@UBIL (A) Negative [facility] Blood, UA Negative Negative [facility] Nitrite, UA Negative Negative [facility] Urobilinogen, 4.0 (A) <2.0 [facility] Leukocyte Negative Negative [place] esteraseMIDCOAST [facility] Epithelial 3 /HPF [place] cells, [facility] WBC, UA 1 0 - 4 /HPF [facility] RBC, UA 1 0 - 5 /HPF [facility] Bacteria, UA None seen None seen [facility] Yeast, UA Few (A) [facility] Yeast with None seen [place] [facility] Hyaline casts, 3 /LPF [facility] Specimen Urine Performing Organization Address City/[facility]/ZIP Code P [place] Number [facility] [place] [address] PATHOLOGY AND GENOMIC MEDICINE [address] * Urine culture (11/25/2019 9:05 AM CDT) Urine culture SEE COMMENTComment: [place] Bacteriuria screen negative. [facility] Specimen Performing Organization Address City/[facility] P arabella Number [facility] [place] [address] PATHOLOGY AND [facility] MEDICINE [address] * Phosphorus level (11/25/2019 4:00 AM CDT) Only the most recent of 3 results within the time period is included. Phosphorus 2.0 (L) 2.4 - 4.5 mg/dL [facility] Specimen Blood Performing Organization Address [facility] P arabella Number [facility] [place] [address] PATHOLOGY [address] * Magnesium level (11/25/2019 4:00 AM CDT) Only the most recent of 3 results within the time period is included. Magnesium 1.5 (L) 1.6 - 2.4 mg/dL [facility] Specimen Blood Performing Organization Address [facility] P arabella Number [facility] [place] [address] PATHOLOGY AND [facility] MEDICINE [address] * Bilirubin direct (11/25/2019 4:00 AM CDT) Bilirubin 0.7 (H) 0.0 - 0.3 mg/dL [facility] Specimen Performing Organization Address [facility] P arabella Number [facility] [place] [address] PATHOLOGY AND [facility] MEDICINE [address] * Comprehensive metabolic panel (11/25/2019 4:00 AM CDT) Only the most recent of 6 results within the time period is included. Sodium 137 135 - 148 mEq/L [facility] Potassium 3.3 (L) 3.5 - 5.0 mEq/L [facility] Chloride 100 98 - 112 mEq/L [facility] CO2 23 (L) 24 - 31 mEq/L [facility] Anion gap 14@ANIO 7 - 15 mEq/L [facility] BUN 9 8 - 23 mg/dL [facility] Creatinine 0.58 0.50 - 0.90 mg/dL [facility] Glucose 131 (H) 65 - 99 mg/dL [facility] Calcium 7.4 (L) 8.8 - 10.2 mg/dL [facility] Protein 5.4 (L) 6.3 - 8.3 g/dL [place] Comment: [facility] Vici 4.6-7.0 g/dL 1 week 4.4-7.6 g/dL 7 months-1year 5.1-7.3 g/dL 1-2 years 5.6-7.5 g/dL >3 years 6.0-8.0 g/dL 18-150 6.3-8.3 g/dL Albumin 2.4 (L) 3.5 - 5.0 g/dL [facility] A/G ratio 0.8 0.7 - 3.8 [facility] Alkaline 68 35 - 104 U/L [place] phosphatase [facility] AST 29 10 - 35 U/L [facility] ALT 12 5 - 50 U/L [facility] Total bilirubin 1.6 (H) 0.0 - 1.2 mg/dL [facility] Specimen Blood Performing Organization Address City/State/ZIP Code P [place] Number [facility] DEPARTMENT OF [address] [place] [address] PATHOLOGY AND GENOMIC MEDICINE [address] * XR Chest 1 Vw Portable [...] calcified atherosclerotic disease. The bones are unremarkable. [id number] Procedure Note Interface, Radiology Results Incoming - [...] calcified atherosclerotic disease. The bones are unremarkable. [id number] Performing Organization Address City/State/[place] [address] * Hemoglobin A1c (11/24/2019 4:22 AM CDT) Hemoglobin A1C 5.8 (H) 4.0 - 5.6 % [place] Comment: [facility] HbA1c cutoffs for diagnosing HOSPITAL diabetes: 4.0% - 5.6% = normal 5.7% - 6.4% = increased risk for diabetes (prediabetes)9 >=6.5% = diabetes9 Goals for glycemic control (ADA 2016) < 7.0% Target for non adults with diabetes. More or less stringent targets may be appropriate for individual patients. <7.5% Target for Children and adolescents with type 1 diabetes. Specimen Blood Performing Organization Address City/State/[facility] Code P arabella Number [facility] DEPARTMENT OF [address] [place] [address] PATHOLOGY AND GENOMIC MEDICINE [place] FAITH [address] [place] [address] HOSPITAL * XR Abdomen 1 Vw Portable [...] plain film evidence of fr ee air. [facility]-[id number] Procedure Note Hm Interface, Radiology Results Incoming [...] plain film evidence of laura e air. [facility]-[id number] Performing Organization Address City/[facility]/[place]IP [place] [address] * Alpha fetoprotein (11/23/2019 4:00 AM CDT) Pathologist [facility] Alpha 6.0 0.0 - 8.3 ng/mL [place] fetoprotein Comment: FAITH The Fred 8000 AFP immunoassay [facility] was used. Results obtained with different assay methods or kits should not be used interchangeably and may be different. Specimen Serum Performing Organization Address City/[facility] P arabella Number [facility] DEPARTMENT OF [address] [place] [address] PATHOLOGY AND GENOMIC MEDICINE [address] * CBC with platelet and differential (11/22/2019 3:45 AM CDT) Only the most recent of 7 results within the time period is included. WBC 6.45 4.50 - 11.00 k/uL [facility] RBC 3.08 (L) 4.20 - 5.50 m/uL [facility] HGB 10.1 (L) 12.0 - 16.0 g/dL [facility] HCT 31.3 (L) 37.0 - 47.0 % [facility] MCV 101.6 (H) 82.0 - 100.0 fL [facility] MCH 32.8 27.0 - 34.0 pg [facility] MCHC 32.3 31.0 - 37.0 g/dL [facility] RDW - SD 56.0 (H) 37.0 - 55.0 fL [facility] MPV 12.6 8.8 - 13.2 fL [facility] Platelet count 77 (L) 150 - 400 k/uL [facility] Nucleated RBC 0.00 /100 WBC [facility] Neutrophils 80.2 (H) 39.0 - 69.0 % [facility] Lymphocytes 9.6 (L) 25.0 - 45.0 % [facility] Monocytes 8.8 0.0 - 10.0 % [facility] Eosinophils 0.9 0.0 - 5.0 % [facility] Basophils 0.2 0.0 - 1.0 % [facility] Immature 0.3Comment: "Immature 0.0 - 1.0 % [place] granulocytes granulocytes" (promyelocytes, METHOD IST myelocytes, metamyelocytes) HOSPITAL Specimen Blood Performing Organization Address City/[facility] [place] [address] PATHOLOGY AND GENOMIC MEDICINE [address] * Lactic acid level (11/21/2019 4:00 AM CDT) Only the most recent of 3 results within the time period is included. Pathologist [facility] Lactic acid 2.9 (H) 0.5 - 2.2 mmol/L [facility] Specimen Blood Performing Organization Address City/[facility] [place] [address] PATHOLOGY AND GENOMIC MEDICINE [address] * Surgical pathology request (11/20/2019 6:26 PM CDT) [facility] DEPARTMENT OF PATHOLOGY AND GENOMIC MEDICINE Surgical See link below for PDF Lab [facility] DEPART MENT pathology Report OF PATHOLOGY report AND GENOMIC MEDICINE Result status This is Final Report for [facility] NT [id number] OF PATHOLOGY AND GENOMIC MEDICINE Specimen Performing Organization Address City/[facility] P arabella Number [facility] [place] [address] PATHOLOGY AND GENOMIC MEDICINE * Airway (11/20/2019 5:41 PM CDT) Narrative Performed At Randa Prabhakar CRNA 10/24 5:45 PM Airway Date/Time: 11/20/2019 5:05 PM Performed by: Randa Prabhakar CRNA Authorized by: Allen Loco MD Location: OR Urgency: Elective Difficult Airway: No Anesthesiologist: Allen Loco MD Resident/BASEBALL CLUB MANAGER/AA: Randa Prabhakar CRNA Performed by: resident/BASEBALL CLUB MANAGER/AA Preoxygenated with 100% O2: Yes C-spine Precautions [...] X 1 with Pastor 2 blade by BASEBALL CLUB MANAGER; grade I view obtained. 7.0 ETT advanced through vocal cords with direct visualization, cuff to occlusive seal, placement confirmed with bilateral chest rise, +mist in ETT, and +etCO2. A traumatic intubation-lips and gums (patient edentulous). OGT easily placed for case duration, stomach decompressed, and OGT placed to gravity . * Potassium, syringe (11/20/2019 3:28 PM CDT) Potassium, 3.2 (L) 3.5 - 5.0 mEq/L [facility] Specimen Blood Performing Organization Address City/[facility] [place] [address] PATHOLOGY AND GENOMIC MEDICINE [address] * Potassium level (11/20/2019 12:04 PM CDT) Potassium 2.8 (LL) 3.5 - 5.0 mEq/L [facility] Specimen Performing Organization Address City/[facility] Code P [place] Number [facility] [place] [address] PATHOLOGY AND GENOMIC MEDICINE [address] * Type and screen (11/20/2019 11:40 AM CDT) ABO grouping O [facility] Rh type POS [facility] Antibody screen NEG [place] (gel) [facility] Specimen Blood Performing Organization Address [facility] P arabella Number [facility] [place] [address] PATHOLOGY AND [facility] MEDICINE [address] * Lactic acid level, SEPSIS - Now and repeat 2x every 3 hours (11/20/2019 4:05 AM CDT) Only the most recent of 3 results within the time period is included. Pathologist [facility] Lactic acid 2.8 (H) 0.5 - 2.2 mmol/L [facility] Specimen Blood Performing Organization Address [facility] [facility] P arabella Number [facility] [place] [address] * COVID-19 qualitative PCR (11/19/2019 11:34 PM CDT) Only the most recent of 2 results within the time period is included. Pathologist [facility] Interpretation Negative results do not [place] preclude 2019-nCoV infection [facility] and should not be used as the HOSPITAL sole basis for treatment or other patient management decisions. Negative results must be combined with clinical observations, patient history, and epidemiological information. COVID-19 Not-Detected Not-Detected [place] qualitative PCR [facility] result HOSPITAL COVID-19 See link below for PDF Lab [place] qualitative PCR ReportComment: Case Number: [facility] [id number] HOSPITAL Specimen Nasopharyngeal swab Performing Organization Address [facility] P arabella Number [facility] [place] [address] PATHOLOGY AND GENOMIC MEDICINE [address] * Partial thromboplastin time, activated (11/19/2019 11:34 PM CDT) Only the most recent of 2 results within the time period is included. PTT 33.9 23.0 - 36.0 sec [place] Comment: [facility] PTT therapeutic range for HOSPITAL unfractionated heparin is 61.0-112.0 seconds which corresponds to Anti-Xa 0.3-0.7 U/ml. Specimen Blood Performing Organization Address City/[facility] Code P arabella Number [facility] [place] [address] PATHOLOGY AND [facility] [address] * Lipase level (11/19/2019 11:34 PM CDT) Lipase 14 13 - 60 U/L [facility] Specimen Blood Performing Organization Address City/[facility] P arabella Number [facility] [place] [address] PATHOLOGY AND [facility] [address] * Ammonia level (11/19/2019 11:34 PM CDT) Ammonia 66 (H) 11 - 51 umol/L [facility] Specimen Blood Performing Organization Address [facility] P arabella Number [facility] [place] [address] PATHOLOGY AND [facility] [address] * Alcohol level, blood (11/19/2019 11:34 PM CDT) Alcohol None Detected mg/dL [place] Comment: [facility] None Detected Legal Intoxication in [place] 80 mg/dL (0.08%) - Whole Blood Toxic Concentration 200 mg/dL (0.2%) Potentially Fatal 350 - 500 mg/dL (0.35 - 0.5%) Alcohol percent None Detected % [facility] Specimen Blood Performing Organization Address [facility] P ar[place] Number [facility] [place] [address] PATHOLOGY AND [facility] [address] * US Abdomen Complete (10/09/2019 3:05 [...] City/State/ZIP Code P arabella Number [facility] [address] [place] [address] * Albumin, misc fluid (10/09/2019 2:20 PM CDT) Fluid type Ascitic [facility] Albumin, fluid 0.5 g/dL [place] Comment: [facility] The reference interval(s) and HOSPITAL other method performance specifications have not been established for this body fluid. The test results must be integrated into the clinical context for interpretation. This test has been modified from the manufacturers instructions. The performance characteristics were determined by [facility] in a manner consistent with CLIA requirements. This test has not been cleared or approved by the U.S. Food and Drug Administration. Specimen Fluid Performing Organization Address City/[facility] P arabella Number [facility] [place] [address] PATHOLOGY AND [facility] [address] * Thyroid stimulating hormone (10/09/2019 5:41 AM CDT) TSH 0.59 0.27 - 4.20 uIU/mL [facility] Specimen Blood Performing Organization Address [facility] [place] [address] PATHOLOGY AND [facility] [address] * T4, free (10/09/2019 5:41 AM CDT) T4, free 1.5 0.9 - 1.7 ng/dL [facility] Specimen Blood Performing Organization Address [facility] P ar[place] Number [facility] [place] [address] PATHOLOGY AND [facility] [address] after 01/07/2019 Insurance Type Payer Benefit Subscriber ID Effective Phone Address Plan / Dates Group HMO HU[employer]NA MEDICARE HUMANA O [id number] 2019-P GOLD PLUS resent MEDICARE [facility] [address] [place] [id number] Advance Directives For more information, please contact: [phone] Patient Yoga Coordinator Explanation Type Date Recorded Advance Directives, 11/19/2019 10:54 PM Living Will and Medical Power of Cancer Genetic Counselor
--- OUTSIDE RECORDS SUMMARY | 2020-01-08 16:25 | XMS REPORT | Continuity of Care Document ---
Author Author [facility] t Organization [facility] Address [address] [place] [address] Phone Unavailable Care Team Providers Care Corporate Sales Representative Name Role Phone MD SELINA REDDING PCP Carmelo Nogueira Attphys Unavailable HARRISON LOPEZ Attphys Unavailable Cedrick RN, Kyra Attphys Unavailable Alex Gandara DO Attphys [phone] Michael MATSON, Kait Attphys Rasheed MATSON, Asaf Dhillon Attphys Julio MATSON, Alex Odom Attphys Beronica MATSON, Allen Attphys Raj DANG, Madyson Attphys Fady Carlisle MD Attphys Mike Lemons Attphys Unavailable Robin MATSON, Fady Lay Attphys Cheli MATSON, Layla Lu Attphys Devyn DAVENPORT, Wendy Attphys Unavailable Bryan ROB, Vivien Attphys Unavailable Izzy [facility], Consuelo Attphys Unavailable Soren DAVENPORT, Keegan Patten Attphys Unavailable SAMI, ADAM Attphys Unavailable Curtis ROB, Gi Attphys Unavailable Kevin MATSON, Mitzi Tate Attphys [facility], J Raymond Attphys Brian MATSON, Mili Attphys Chan CARLSON, A Kusum Attphys Yoel Fellow(), Jitendra Attphys [phone] Clarice MATSON, Stella Mcdaniels Attphys Paradise MATSON, Ольга Ealm Attphys Brock Fellow(), O Uziel Attphys [phone] Alayna ROB, Mildred Jackson Attphys Unavailable Brady MATSON, Lala Kumar Attphys Unavailable KAIT RODRIGUEZ Admphys Unavailable LINA GUZMÁN Admphys Unavailable Stella CABRERA Admphys Unavailable Payers Payer Name Policy Type Policy Number Effective Date Expiration Date S jones [employer] [id number] 2019 00:00:00 [facility] G[facility]US [id number] 2019 00:00:00 [facility] OONxxxxxxxx2019-03/24/[id number] [address] [place] [id number] xxxxxxxx 2019 00:00:00 2078 23:59:59 [facility] HCHD [id number] SCREENEDxxxxxx04/20 //[id number] [place] [address] xxxxxx 2019 00:00:00 2029 2 3:59:59 [facility] Problems Condition Name Condition Details Condition Category [...] Benign Essential Hypertension Problem Active 2019-04-27 00:00:00 [facility] Hernia of abdominal cavity Hernia of Abdominal Cavity Problem Active 2019-04-27 00:00:00 [facility] Disease of liver Disease of Liver Problem Active 2019-04-27 00:00:00 [facility] Umbilical hernia Umbilical hernia Disease Active 2018-03-25 00:00:00 [facility] Strangulated umbilical hernia Strangulated umbilical hernia Disease Active 2018-03-24 00:00:00 Overview: Ad ded automatically from request for surgery [id number] [facility] Portal vein thrombosis Portal vein thrombosis Disease Active 2018-01-07 00:00:00 [facility] 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 2018-01-07 00:00:00 [facility] Edema Edema Disease Active 2016-10-25 00:00:00 [facility] Myalgia Myalgia Disease Active 2011-04-23 00:00:00 [facility] Costochondritis Costochondritis Disease Active 2011-04-23 00:00:00 [facility] Depression Depression Disease Active 2010-06-15 00:00:00 [facility] Tobacco dependence Tobacco dependence Disease Active 2010-05-11 00:00:0 0 [facility] Hypothyroidism Hypothyroidism Disease Active 2010-03-02 00:00:00 [facility] Cellulitis Problem Active [facility] Hypokalemia Problem Active [facility] Dysthymia Dysthymia Disease Active [facility] Hypertension Hypertension Disease Active [facility] Opiate dependence Opiate dependence Disease Active [facility] HCV infection HCV infection Disease Active [facility] 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 Dis ease Active [facility] Generalized edema Generalized edema Disease Active [facility] Polysubstance abuse Polysubstance abuse Disease Active [facility] Chronic hepatitis C without hepatic coma Chronic hepat itis C without hepatic coma Disease Active [facility] Essential hypertension Essential hypertension Disease Active [facility] Acquired hypothyroidism Acquired hypothyroidism Disease Active [facility] Other partial intestinal obstruction Other partial intestina l obstruction Disease Active [facility] Abdominal pain Abdominal pain Disease Active [facility] S/P exploratory laparotomy S/P exploratory laparotomy Disease Active [facility] Hyperglycemia Hyperglycemia Disease Active [facility] At risk for hypoglycemia At risk for hypoglycemia Disease Active [facility] Hemoglobin A1c between 7.0% and 9.0% Hemoglobin A1c between 7.0% and 9.0% Disease Active [facility] Type 2 diabetes mellitus with hyperglyce marla, without long-term current use of insulin Type 2 diabetes mellitus with hyperglyce marla, without long-term current use of insulin Disease Active [facility] Unilateral recurrent inguinal hernia without obstructi on or gangrene Unilateral recurrent inguinal hernia without obstruction or gangrene Disease Active [facility] Other ascites Other ascites Disease Active [facility] Allergies, Adverse Reactions, Alerts Allergy Name Allergy Type Status Severity Reaction(s) Onset Date Inacti ve Date Treating Clinician Comments Source No Known Allergies DA Active U 2015-04-29 00:00:00 [facility] Family History Family Member Diagnosis Comments Start Date Stop Date Source Natural brother Psychiatry [facility] alth Natural father Psychiatry [facility] Maternal grandmother Hypertension [facility] Maternal uncle Other [facility] Maternal uncle Psychiatry [facility] Natural mother Hypertension [facility] e[facility] Natural mother Psychiatry [facility] Social History Social Habit Start Date Stop Date Quantity Comments Source History of tobacco use Cigarette Smoker [facility] SDOH Alcohol Std Drinks [facility] History SDOH Alcohol Binge [facility] Sex Assigned At [facility] Tobacco use and exposure 2019-11-23 00:00:00 2019-11-23 00:00:00 Esequiel barnett used [facility] SDOH Alcohol Frequency 2019-11-20 00:00:00 2019-11-20 00:00:0 0 1 [facility] Cigarettes smoked current (pack per day) - Reported 00:00:00 2019-03-10 00:00:00 [facility] Cigarette pack-years 2019-03-10 00:00:00 2019-03-10 00:00:00 [facility] Alcohol intake 2019-03-10 00:00:00 2019-03-10 00:00:00 Ex-drinker (shakira linn) [facility] History SDOH Food Worry 2017-06-13 00:00:00 2017-06-13 00:00:00 2 [facility] History SDOH Food Scarcity 2017-06-13 00:00:00 2017-06-13 00:00:00 2 [facility] Tobacco Comment 2010-06-29 00:00:00 2010-06-29 00:00:00 had cut back to less than half a pack daily on wellbutrin once daily; now smoking again a pack or more a day [facility] Alcohol Comment 2010-06-15 00:00:00 2010-06-15 00:00:00 once ivone vargas 2 years has 4 x 12 oz beers; last drink 02/10/2010 in suicide attempt drank a bottle of liquor with other substances [facility] Smoking Status Start Date Stop Date Source Light Tobacco Smoker [facility] Current every day smoker 2019-03-10 00:00:00 [facility] Medications Ordered Medication Name Filled Medication [...] (15 mL) solution 2019-11-28 17:28:35 Yes 10g [id number] Take 10 g by mouth 3 (three) times a day as needed. Clemente Burns hydrOXYzine (ATARAX) 25 MG tablet 2019-11-28 17:28:35 Yes 25mg Q6H Take 25 mg by mouth every 6 (six) hours as needed for itching. Clemente Burns gabapentin (Neurontin) 100 mg capsule 2019-11-28 00:00 :00 2019-12-28 23:59:00 No 200mg [id number] Take 2 capsules (200 mg total) by [...] QD Take 100 mg by mouth daily. [facility] spironolactone (ALDACTONE) 100 mg tablet 2019-02 00:00:00 2019-06-08 23:59:00 No Periumbilical abdominal pain 200mg QD Take 2 tablets by mouth daily for 90 days. [facility] glipiZIDE (GLUCOTROL) 10 mg tablet 2019-03-02 00:00:00 Yes Newly diagnosed diabetes 5mg Q.5D Take 0.5 tablets by mouth 2 times daily (before meals). [facility] furosemide (LASIX) 40 mg tablet 2019-02-25 00:00:00 00:00:00 No Periumbilical abdominal pain 40mg QD Take 1 tablet by mo uth daily for 90 days. [facility] spironolactone (ALDACTONE) 100 mg tablet 2019-02 11:43:46 2019-02-24 00:00:00 No 100mg QD Take 100 mg by mouth daily. [facility] lactulose (CHRONULAC) 10 gram/15 mL oral solution 2019-02-24 00:00:00 Yes Increased ammonia level 20g Take 30 mL by mouth 3 times daily. [facility] spironolactone (ALDACTONE) 100 mg tablet 2019-02 00:00:00 2019-03-10 00:00:00 No Periumbilical abdominal pain 100mg QD Take 1 tablet by mouth daily for 90 days. [facility] lactulose (CHRONULAC) 10 gram/15 mL oral solution 2019-01-09 00:00:00 2019-02-24 00:00:00 No Increased ammonia level 20g Take 30 mL by mouth 3 times daily. [facility] tropicamide (MYDRIACYL) 0.5 % ophthalmic solution 2019-01-09 00:00:00 2019-01-09 23:59:00 No Type 2 diabetes joanne itus with hyperglycemia, without long-term current use of insulin 1[drp] Instill 1 Drop in each eye once as needed for up to 1 dose (for poor retina scan image). [facility] nicotine (NICODERM CQ) 21 mg/24 hr patch 2018-09-19 00:00:00 Yes Tobacco dependence 1{patch} Apply 1 Patch to skin as directed every 24 hour s. [facility] hydrocortisone 1 % ointment 2018-09-19 00:00:00 Yes Skin lesion Q.5D Apply to affected area [address] [facility] hydrOXYzine (ATARAX) 25 mg tablet 2018-09-10 00:00:00 Yes Itching 25mg Take 1 tablet by mouth 3 times daily as needed for Itching. [facility] glipiZIDE (GLUCOTROL) 10 mg tablet 2018-07-01 00:00:00 201 12-04-05 00:00:00 No Newly diagnosed diabetes 5mg Q.5D Take 0. 5 tablets by mouth 2 times daily (before meals). [facility] traMADol (ULTRAM) 50 mg tablet 2018-05-13 00:00:00 00:00:00 No Strangulated umbilical hernia 50mg Take 1 tab let by mouth 2 times daily as needed for Pain. [facility] levothyroxine (SYNTHROID) 75 mcg tablet 2018-04-15 00:00:00 Yes Cirrhosis of liver with ascites, unspecified hepatic cirrhosis type 75ug QD Take 1 tablet by mouth every morning (before breakfast). [facility] FLUoxetine (PROZAC) 10 mg capsule 2018-04-15 00:00:00 Ye s Mood disorder 10mg QD Take 1 capsule by mouth daily. [facility] acetaminophen-codeine (TYLENOL/CODEINE #3) 300-30 mg per tab let 2018-03-28 00:00:00 2019-02-24 00:00:00 No Strangulated umbilical hernia 1{tbl} Take 1 tablet by mouth every 6 hours as needed for Pain. [facility] blood glucose meter (PRECISION XTRA GLUCOMETER) 2018-03-27 0 0:00:00 Yes New onset type 2 diabetes mellitus Use as directed.. [facility] blood glucose (PRECISION XTRA TEST STRIPS) test strips 2018-03-27 00:00:00 Yes New onset type 2 diabetes mellitus Use 2 times weekly (once per day on Sat,) to test blood sugar. [facility] lancets 28 gauge 2018-03-27 00:00:00 Yes New onset type 2 diabetes mellitus Use 2 times weekly as directed. [facility] Buprenorphine-Naloxone (SUBOXONE) 8-2 mg Subl 2010-07-13 [...] bedtime for 4 days then stop medicineDEA: [id number] and [id number]: [id number] [facility] furosemide 40 mg tablet Take 1 tablet every day by ora l route for 90 days. furosemide 40 mg tablet Take 1 tablet every day by oral route for 90 days. No furosemide 40 m g tablet Take 1 tablet every day by oral route for 90 days. [facility]2 pill twice daily glipizide 1/2 pill twice daily No glipizide 1/2 pill twice daily [facility] hydroxyzine HCl 25 mg tablet Take 1 tabl et 3 times a day by oral route for 30 days. hydroxyzine HCl 25 mg tablet Take 1 tabl et 3 times a day by oral route for 30 days. No hydroxyzine HC l 25 mg tablet Take 1 tablet 3 times a day by oral route for 30 days. [facility] lactose (bulk) 3 times daily lactose (bulk) 3 times daily N o lactose (bulk) 3 times daily [facility] ctice levothyroxine 100 mcg tablet Take 1 tablet every day b y oral route. levothyroxine 100 mcg tablet Take 1 tablet every day by oral route. No levothyroxine 100 mcg tablet Take 1 tablet every day b y oral route. [facility] levothyroxine 75 mcg tablet Take 1 tablet every day by oral route. levothyroxine 75 mcg tablet Take 1 tablet every day by oral route. No 1 Q1D levothyroxine 75 mcg tablet Take 1 tablet every day by oral route. [facility] losartan 25 mg tablet Take 1 tablet every day by oral route. losartan 25 mg tablet Take 1 tablet every day by oral route. No losartan 25 mg tablet Take 1 tablet every day by oral route. [facility] potassium chloride ER 10 mEq capsule,ext ended release Take 1 capsule every day by oral route. potassium chloride ER 10 mEq capsule,ext ended release Take 1 capsule every day by oral route. No potassium chloride ER 10 mEq capsule,extended release Take 1 capsule every day by oral route. [facility] spironolactone 100 mg tablet Take 1 tablet every day b y oral route for 90 days. spironolactone 100 mg tablet Take 1 tablet every day by oral route for 90 days. No spironolac tone 100 mg tablet Take 1 tablet every day by oral route for 90 days. [facility] Suboxone 8 mg-[address] 1 film every day by sublingual route for 30 days. Suboxone 8 mg-[address] 1 film every day by sublingual route for 30 days. No Suboxone 8 mg-[address] 1 film every day by sublingual route for 30 days. [facility] triamcinolone acetonide 0.1 % topical [...] BY TOPICAL ROUTE 2 TIMES PER DAY [facility] Furosemide Furosemide Yes 40 Bedtime [facility] Glipizide Glipizide Yes 2 Twice A Day [facility] Insulin Glargine (Lantus 3ML Pen) 100 Units/1 Ml INJ I nsulin Glargine (Lantus 3ML Pen) 100 Units/1 Ml INJ Yes 10 Every 12 H ours [facility] Lactulose Lactulose Yes 15 Three Times A Day [facility] Levothyroxine Sodium Levothyroxine Sodium Yes 100 Daily [facility] Spironolactone Spironolactone Yes 100 Daily [facility] Immunizations Ordered Immunization Name Filled Immunization Name Date Status Comments Source Tdap (Tetanus Toxoid, Reduced Diphtheria Toxoid And Acellular Pertussis, Absorbed) 2019-01-09 00:00:00 Completed [facility] Influenza, Vaccine<FLUCELVAX>(Multi-Dose) 2019-01-09 00:00 :00 [facility] PPV 23 (Pneumococcal Polysaccharide 23 Valent) 2018-12 00:00:00 [facility] Influenza, Vaccine<FLUCELVAX>(Multi-Dose) 2018-01-06 00:00 :00 Completed [facility] Vital Signs Vital Name Observation Time Observation Value Comments Source Height 2019-07-08 00:00:00 59 [in_i] [facility] BP Diastolic 2019-04-27 00:00:00 96 mm[Hg] [facility] Height 2019-04-27 00:00:00 59 [in_i] [facility] BMI (Body Mass Index) 2019-04-27 00:00:00 21 kg/m2 [facility] BP Systolic 2019-04-27 00:00:00 158 mm[Hg] [facility] Body Weight 2019-04-27 00:00:00 104 [lb_av] [facility] Weight 2019-12-31 14:40:00 105 [lb_av] [facility] BMI (Body Mass Index) 2019-12-31 14:40:00 21.2 kg/m2 [facility] Systolic blood pressure 2019-11-28 11:39:33 112 mm[Hg] [facility] Diastolic blood pressure 2019-11-28 11:39:33 66 mm[Hg] [facility] Heart rate 2019-11-28 11:39:33 78 /min [facility] Body temperature 2019-11-28 11:39:33 36.33 Kiya [facility] Respiratory rate 2019-11-28 11:39:33 17 /min [facility] Oxygen saturation in Arterial blood by Pulse oximetry 11-27 11:39:33 100 /min [facility] Body height 2019-11-20 14:15:00 149.9 cm [facility] Body weight 2019-11-20 14:15:00 45.813 kg [facility] BMI 2019-11-20 14:15:00 20.40 kg/m2 [facility] Body Temperature 2019-08-04 11:39:00 97.0 [degF] [facility] Systolic blood pressure 2019-04-02 13:00:00 182 mm[Hg] [facility] Diastolic blood pressure 2019-04-02 13:00:00 95 mm[Hg] [facility] Heart rate 2019-04-02 13:00:00 78 /min [facility] Body temperature 2019-04-02 13:00:00 36.89 Kiya Fara is [facility] Respiratory rate 2019-04-02 13:00:00 18 /min [facility] Oxygen saturation in Arterial blood by Pulse oximetry 04-02 13:00:00 98 /min [facility] Body height 2019-04-02 08:00:00 149.9 cm [facility] Body weight 2019-04-02 08:00:00 50.803 kg [facility] BMI 2019-04-02 08:00:00 22.62 kg/m2 [facility] Procedures Procedure Date / Time Performed Performing Clinician Hanane english US guided paracentesis 2019-12-31 00:00:00 CAROLANN [facility]ie [facility] US Abdomen limited 2019-12-17 00:00:00 CAROLANN Iraheta [facility] US guided paracentesis 2019-12-07 00:00:00 [facility] 2019-11-28 11:40:00 Ilene Kim [facility] POC GLUCOSE 2019-11-28 08:57:00 Ilene Kim [facility] POC GLUCOSE 2019-11-28 08:03:00 Ilene Kim [facility] CBC HEMOGRAM 2019-11-28 05:30:00 Raghav Lopez [facility] BASIC METABOLIC PANEL 2019-11-28 05:30:00 Raghav Lopez n [facility] HEPATIC FUNCTION PANEL 2019-11-28 05:30:00 Raghav Lopez on [facility] ESTIMATED GFR 2019-11-28 05:30:00 Raghav Lopez [facility] POC GLUCOSE 2019-11-28 05:11:00 Ilene Kim [facility] POC GLUCOSE 2019-11-28 02:04:00 Ilene Kim [facility] POC GLUCOSE 2019-11-27 22:10:00 Ilene Kim [facility] POC GLUCOSE 2019-11-27 18:01:00 Ilene Kim [facility] MRI ABDOMEN W WO CONTRAST 2019-11-27 17:08:35 Mya Sanchez [facility] POC GLUCOSE 2019-11-27 11:38:00 Ilene Kim [facility] POC GLUCOSE 2019-11-27 07:52:00 Ilene Kim [facility] BASIC METABOLIC PANEL 2019-11-27 02:31:00 Raghav Lopez [facility] HEPATIC FUNCTION PANEL 2019-11-27 02:31:00 Raghav Lopez on [facility] ESTIMATED GFR 2019-11-27 02:31:00 Raghav Lopez [facility] CBC HEMOGRAM 2019-11-27 02:10:00 Raghav Lopez [facility] BLOOD CULTURE, AEROBIC & ANAEROBIC [...] Pace POC GLUCOSE 2019-11-26 12:25:00 Ilene Kim SAdalberto [facility] POC GLUCOSE 2019-11-26 08:31:00 Ilene Kim SAdalberto [facility] CBC HEMOGRAM 2019-11-26 04:30:00 Raghav Lopez Meth odcinthya PROTHROMBIN TIME WITH INR 2019-11-26 04:30:00 Mya Sanchez BASIC METABOLIC PANEL 2019-11-26 04:00:00 Raghav Lopez [facility] HEPATIC FUNCTION PANEL 2019-11-26 04:00:00 John, Jamuna [place] on [facility] ESTIMATED GFR 2019-11-26 04:00:00 JohnRaghav kendall [facility] POC GLUCOSE 2019-11-25 22:24:00 Ilene Kim Meth [facility]ist POC GLUCOSE 2019-11-25 17:12:00 Ilene Kim LizzieAdlaberto [facility] POC GLUCOSE 2019-11-25 11:08:00 Ilene Kim LizzieAdalberto [facility] URINE CULTURE 2019-11-25 09:05:00 Ilene Kim LizzieAdalberto [facility] URINALYSIS SCREEN AND MICROSCOPY, WITH REFLEX TO CULTURE 202 09:05:00 Kary Seth [facility] POC GLUCOSE 2019-11-25 08:43:00 Ilene Kim [facility] BLOOD CULTURE, AEROBIC & ANAEROBIC 2019-11-25 06:55:00 Kary Seth BLOOD CULTURE, AEROBIC & ANAEROBIC 2019-11-25 06:15:00 Kary Seth [facility] MAGNESIUM LEVEL 2019-11-25 04:00:00 Lavern Fleming [facility] PHOSPHORUS LEVEL 2019-11-25 04:00:00 Lavern Fleming Met hodist COMPREHENSIVE METABOLIC PANEL 2019-11-25 04:00:00 Lavern Fleming [facility] BILIRUBIN DIRECT 2019-11-25 04:00:00 Raghav Lopez Met hodist ESTIMATED GFR 2019-11-25 04:00:00 JohnRodneybruna [facility] CBC HEMOGRAM 2019-11-25 03:20:00 JohnRodneybruna [facility]jo Meth odist PROTHROMBIN TIME WITH INR 2019-11-25 03:20:00 May Sanchez [facility] POC GLUCOSE 2019-11-24 21:03:00 Ilene Kim Meth [facility]ist POC GLUCOSE 2019-11-24 15:57:00 Ilene Kim Meth odist POC GLUCOSE 2019-11-24 11:24:00 Ilene Kim Meth [facility]ist XR CHEST 1 VW PORTABLE 2019-11-24 11:15:33 Kary Seth [facility] POC GLUCOSE 2019-11-24 07:59:00 Ilene Kim LizzieAdalberto [facility]jo Meth odist CBC HEMOGRAM 2019-11-24 04:22:00 Raghav Lopez [facility] BASIC METABOLIC PANEL 2019-11-24 04:22:00 Raghav Lopez [facility] HEPATIC FUNCTION PANEL 2019-11-24 04:22:00 Raghav Lopez on [facility] HEMOGLOBIN A1C 2019-11-24 04:22:00 JulioIlene avila Meth [facility]ist ESTIMATED GFR 2019-11-24 04:22:00 Ilene Kim Meth odist PROTHROMBIN TIME WITH INR 2019-11-24 04:20:00 Mya Sanchez [facility] POC GLUCOSE 2019-11-24 04:00:00 JulioIlene Meth odist POC GLUCOSE 2019-11-23 23:19:00 JulioIlene Meth odist POC GLUCOSE 2019-11-23 20:22:00 JulioIlene Meth odist BASIC METABOLIC PANEL 2019-11-23 17:08:00 Chayo Domingo [facility] ESTIMATED GFR 2019-11-23 17:08:00 Julio Ilene Cornejo Meth odist POC GLUCOSE 2019-11-23 15:50:00 JulioIlene Meth odist POC GLUCOSE 2019-11-23 11:19:00 Ilene Kim [facility] XR ABDOMEN 1 VW PORTABLE 2019-11-23 10:48:39 Chayo Domingo [facility] POC GLUCOSE 2019-11-23 07:57:00 Alejo Iqbal Meth odist PROTHROMBIN TIME WITH INR 2019-11-23 04:30:00 Mya Sanchez [facility] CBC HEMOGRAM 2019-11-23 04:30:00 Raghav Lopez [facility] ALPHA FETOPROTEIN 2019-11-23 04:00:00 Mya Sanchez [facility] BASIC METABOLIC PANEL 2019-11-23 04:00:00 Raghav Lopez [facility] HEPATIC FUNCTION PANEL 2019-11-23 04:00:00 Raghav Lopez [facility] ESTIMATED GFR 2019-11-23 04:00:00 Mya Sanchez [facility] POC GLUCOSE 2019-11-22 20:21:00 Alejo Iqbal Meth odist POC GLUCOSE 2019-11-22 15:49:00 Alejo Iqbal Meth odist POC GLUCOSE 2019-11-22 11:13:00 Alejo Iqbal Meth odist POC GLUCOSE 2019-11-22 08:41:00 Alejo Iqbal Meth odist COMPREHENSIVE METABOLIC PANEL 2019-11-22 04:00:00 Chayo Domingo [facility] ESTIMATED GFR 2019-11-22 04:00:00 Alejo Iqbal Meth odist POC GLUCOSE 2019-11-22 03:52:00 Alejo Iqbal Meth [facility] HC COMPLETE BLD COUNT W/AUTO DIFF 2019-11-22 03:45:00 Chayo Domingo PROTHROMBIN TIME WITH INR 2019-11-22 03:45:00 Mya Sanchez [facility] POC GLUCOSE 2019-11-21 20:03:00 Alejo Iqbal Meth odist POC GLUCOSE 2019-11-21 15:53:00 Alejo Iqbal Meth odist POC GLUCOSE 2019-11-21 12:22:00 Alejo Iqbal Meth odist POC GLUCOSE 2019-11-21 07:38:00 Alejo Iqbal Meth odist POC GLUCOSE 2019-11-21 04:38:00 Alejo Iqbal [facility] HC COMPLETE BLD COUNT W/AUTO DIFF 2019-11-21 04:20:00 Chayo Domingo [facility] COMPREHENSIVE METABOLIC PANEL 2019-11-21 04:00:00 Chayo Domingo [facility] LACTIC ACID LEVEL 2019-11-21 04:00:00 Chayo Domingo Me thodist ESTIMATED GFR 2019-11-21 04:00:00 Aeljo Iqbal Meth odist HC COMPLETE BLD COUNT W/AUTO DIFF 2019-11-21 00:00:00 Chayo Domingo BASIC METABOLIC PANEL 2019-11-21 00:00:00 Chayo Domingo PROTHROMBIN TIME WITH INR 2019-11-21 00:00:00 Chayo Domingo [facility] HEPATIC FUNCTION PANEL 2019-11-21 00:00:00 Domingo, Domingo Houst on [facility] ESTIMATED GFR 2019-11-21 00:00:00 Alejo Iqbal Meth odist POC GLUCOSE 2019-11-20 23:20:00 Alejo Iqbal Meth odist XR ABDOMEN 1 VW PORTABLE 2019-11-20 20:22:37 Chayo Domingo Michaelveronique Burns POC GLUCOSE 2019-11-20 19:59:00 Alejo Iqbal Meth odist LACTIC ACID LEVEL 2019-11-20 19:43:00 Chayo Domingo Me thodist BASIC METABOLIC PANEL 2019-11-20 19:43:00 Chayo Domingo n [facility] ESTIMATED GFR 2019-11-20 19:43:00 Alejo Iqbal Meth odist SURGICAL PATHOLOGY REQUEST 2019-11-20 18:26:00 Alejo Iqbal MD AN ELECTIVE ENDOTRACHEAL AIRWAY 2019-11-20 17:41:02 Randa [...] COUNT W/AUTO DIFF 2019-11-20 09:02:00 Chayo Domingo Taoism LACTIC ACID LEVEL 2019-11-20 09:02:00 Chayo Domingo Nj thodist LACTIC ACID LEVEL, SEPSIS - NOW [...] Javad Gandara US guided paracentesis 2019-11-16 00:00:00 [facility] US Abdomen limited 2019-11-09 00:00:00 [facility] . [facility] US guided paracentesis 2019-11-02 00:00:00 [facility] US guided paracentesis 2019-10-26 00:00:00 [facility] US guided paracentesis 2019-10-19 00:00:00 [facility] POC GLUCOSE 2019-10-09 19:05:00 Aly Ramírez Nj marilyodist US ABDOMEN COMPLETE 2019-10-09 15:05:27 Mya Sanchez US ABDOMINAL PARACENTESIS IMAGING 2019-10-09 14:43:00 Keegan Rodriguez AEROBIC CULTURE 2019-10-09 14:20:00 Aly Ramírez Nj thodist ANAEROBIC CULTURE 2019-10-09 14:20:00 Aly Ramírez GRAM STAIN 2019-10-09 14:20:00 Aly Ramírez Nj thodist ALBUMIN, MISC FLUID 2019-10-09 14:20:00 Aly Ramírez PROTEIN, MISC FLUID 2019-10-09 14:20:00 Aly Ramírez CELL COUNT AND DIFFERENTIAL, BODY FLUID 2019-10-09 14:20:00 Aly Stapleton BLOOD CULTURE, AEROBIC & ANAEROBIC 2019-10-09 11:30:00 Mya Mcguire BLOOD CULTURE, AEROBIC & ANAEROBIC 2019-10-09 11:15:00 Mya Mcguire POC GLUCOSE 2019-10-09 10:02:00 Aly Ramírez Nj thodist POC GLUCOSE 2019-10-09 08:43:00 Aly Ramírez Nj thodist HC COMPLETE BLD COUNT W/AUTO DIFF [...] MAGNESIUM LEVEL 2019-10-09 05:41:00 Kait Rodriguez Met sharri PHOSPHORUS LEVEL 2019-10-09 05:41:00 Kait Rodriguez Me thodist POC GLUCOSE 2019-10-08 23:25:00 Kait Rodriguez Met sharri COVID-19 QUALITATIVE PCR 2019-10-08 22:32:00 Kait Rodriguez COMPREHENSIVE METABOLIC PANEL 2019-10-08 20:55:00 Alonzo Rodriguez HC COMPLETE BLD COUNT W/AUTO DIFF 2019-10-08 20:55:00 Keegan Rodriguez ESTIMATED GFR 2019-10-08 20:55:00 Kait Rodriguez Met sharri US guided paracentesis 2019-09-30 00:00:00 [facility] US guided paracentesis 2019-09-16 00:00:00 [facility] US guided paracentesis 2019-09-01 00:00:00 [facility] Complete non-obstetrical ultrasound of pelvis 2019-08-13 00:00:0 0 [facility] US transvaginal 2019-08-13 00:00:00 [facility] EGD VARICES LIGATION 2019-08-04 00:00:[address] [facility] CT of abdomen and pelvis without contrast 2019-08-04 00:00:00 [facility] US guided paracentesis 2019-08-04 00:00:00 [facility] ABD PARACENTESIS W/IMAGING 2019-04-02 12:03:10 WoodburnRaymond stewart [facility] GLUCOSE POC 2019-04-02 08:58:00 Bebeto Brown [facility] U/S PELVIS LTD NON-OB 2019-02-26 13:28:55 Bebeto Brown [facility] DUPLEX DOPPLER ABD/PEL VASCULAR STUDY, COMPLETE 2019-02-26 1 3:28:47 Bebeto Brown [facility] GLUCOSE POC 2019-02-24 08:48:00 Mili Torres [facility] COMPREHENSIVE METABOLIC PANEL 2019-02-24 03:35:00 Mili Torres [facility] CBC (WITHOUT DIFFERENTIAL) 2019-02-24 03:35:00 Mili Torres [facility] GLUCOSE POC 2019-02-23 20:36:[address] [facility] h CT ABDOMEN AND PELVIS CONTRAST 2019-02-23 18:16:58 Mili Torres [facility] LACTIC ACID 2019-02-23 14:37:[address] [facility] h INFUSION PUMP 2019-02-23 14:29:[address] [facility] h GLUCOSE POC 2019-02-23 12:56:[address] [facility] h GLUCOSE POC 2019-02-23 09:24:00 Mili Torres [facility] COMPREHENSIVE METABOLIC PANEL 2019-02-23 06:21:00 Brock Uziel Parikh [facility] MAGNESIUM 2019-02-23 06:21:00 Brock Uziel Parikh [facility] CBC/DIFF 2019-02-23 06:21:00 Brock Uziel Parikh [facility] PT/INR 2019-02-23 06:21:00 Brock Uziel Parikh [facility] PTT 2019-02-23 06:21:00 Marinmnantoine Uziel Parikh [facility] CBC 2019-02-23 06:21:00 Brock Uziel Parikh [facility] SEQUENTIAL COMPRESSION PUMP 2019-02-23 05:57:31 Brock Uziel Parikh [facility] FLUID CULTURE AND GRAM STAIN 2019-02-23 00:33:00 Wendy Poon [facility] CELL COUNT, FLUID 2019-02-23 00:32:00 Wendy Poon a [facility]th ALBUMIN, DCD 2019-02-23 00:32:00 Wendy Poon [facility] T PROTEIN, [facility] 2019-02-23 00:32:00 Wendy Poon [facility] GLUCOSE, DCD 2019-02-23 00:32:00 Wendy Poon [facility] LDH, DCD 2019-02-23 00:32:00 Wendy Poon [facility] CELL COUNT, BODY FLUID 2019-02-23 00:32:00 Wendy Poon [facility] DIFFERENTIAL, CELL COUNT 2019-02-23 00:32:00 Wendy Poon [facility] TROPONIN I POC 2019-02-22 23:18:[address] [facility] h TROPONIN I POC 2019-02-22 23:14:00 Enedelia Oneil [facility] h VBG POC 2019-02-22 23:07:[address] [facility] PT/INR 2019-02-22 23:02:00 Grisel Moore [facility] LIVER PROFILE 2019-02-22 23:02:00 Grisel Moore [facility] AMMONIA 2019-02-22 23:02:00 Celina Reyna [facility] BMP POC 2019-02-22 22:27:00 Unknown, Provider [facility] CBC/DIFF 2019-02-22 22:22:00 Grisel Moore [facility] CBC 2019-02-22 22:22:00 Grisel Moore [facility] DIFFERENTIAL, MANUAL-WAM 2019-02-22 22:22:00 [facility] LEAD E[facility]; TRACING ONLY 2019-02-22 22:13:48 Grisel Santillan [facility] HEMOGLOBIN A1C 2019-01-09 15:56:00 Bebeto Brown [facility] DIABETIC FOOT EXAM 2019-01-09 15:[facility]18 [facility] Planned Activity Planned Date Details Comments Source Future Scheduled Test 2020-01-10 00:00:00 DM Foot Exam (Year ly) [code = DM Foot Exam (Yearly)] [facility] Scheduled Test 2020-01-10 00:00:00 Hemoglobin A1c christa surement (procedure) [code = 47039309] [facility] Scheduled Test 2019-12-24 00:00:00 IMM Influenza Seas onal Dec to May (>/= 19 yrs) [code = IMM Influenza Seasonal Dec to May (>/= 19 yrs)] [facility] Scheduled Test 2019-10-24 00:00:00 INFLUENZA VACCINE [code = INFLUENZA VACCINE] [facility] Scheduled Test 2019-01-06 00:00:00 Urine screening fo r protein (procedure) [code = 723254392] [facility] Scheduled Test 2019-01-02 00:00:00 DM Retinal Exam (Y early) [code = DM Retinal Exam (Yearly)] [facility] Scheduled Test 2005 00:00:00 BREAST CANCER SCRE ENING [code = BREAST CANCER SCREENING] [facility] Scheduled Test 2005 00:00:00 COLONOSCOPY SCREEN ING [code = COLONOSCOPY SCREENING] [facility] Scheduled Test 2005 00:00:00 SHINGLES VACCINES (#1) [code = SHINGLES VACCINES (#1)] [facility] Scheduled Test 2005 00:00:00 Screening for shanti gnant neoplasm of colon (procedure) [code = 299004474] [facility] Scheduled Test 1995 00:00:00 Breast Cancer Scrn (Yearly) [code = Breast Cancer Scrn (Yearly)] [facility] Scheduled Test 1976-02-17 00:00:00 Screening for shanti gnant neoplasm of cervix (procedure) [code = 239214407] [facility] Scheduled Test 1976-02-17 00:00:00 Screening for shanti gnant neoplasm of cervix (procedure) [code = 269792114] [facility] Scheduled Test 1965 00:00:00 DIABETIC FOOT EXAM [code = DIABETIC FOOT EXAM] [facility] Scheduled Test 1965 00:00:00 URINE MICROALBUMIN [code = URINE MICROALBUMIN] [facility] Scheduled Test 1955 00:00:00 DIABETIC RETINAL E YE EXAM [code = DIABETIC RETINAL EYE EXAM] [facility] Instructions Cellulitis [facility] Instructions Hypokalemia [facility] Encounters Start Date/Time End Date/Time Encounter Type Admission Type [facility] Care Department Encounter ID Source 2018-03-28 12:20:21 Inpatient [facility] [id number] [facility] 2018-03-27 11:42:04 Inpatient [facility] [id number] [facility] 2019-12-31 14:57:00 2019-12-31 14:57:00 Registered Emergency Room [facility] [id number] [facility] 2019-12-31 13:03:00 2019-12-31 13:03:00 Registered Clinic 3 HARRISON LOPEZ [facility] [id number] [facility] 2019-12-17 12:30:00 2019-12-17 12:30:00 Registered Clinic 3 [place] [id number] [facility] 2019-12-07 12:51:00 2019-12-07 12:51:00 Registered Clinic 3 [place] [id number] [facility] 2019-11-19 00:00:00 2019-11-28 00:00:00 Inpatient [facility]ENE [facility] [id number] [facility] 2019-11-16 12:24:00 2019-11-16 12:24:00 Registered Clinic 3 [place] [id number] [facility] 2019-11-09 12:12:00 2019-11-09 12:12:00 Registered Clinic 3 [place] [id number] [facility] 2019-11-02 12:38:00 2019-11-02 12:38:00 Registered Clinic 3 [place] [id number] [facility] 2019-10-26 12:30:00 2019-10-26 12:30:00 Registered Clinic 3 [place] [id number] [facility] 2019-10-19 12:45:00 2019-10-19 12:45:00 Registered Clinic 3 [place] [id number] [facility] [place] 2019-10-08 00:00:00 2019-10-10 00:00:00 Inpatient ALY RAMÍREZ [facility] [id number] [facility] 2019-09-30 12:58:00 2019-09-30 12:58:00 Registered Clinic 3 SCOT-[address] [facility] [id number] [facility] [place] 2019-09-16 11:45:00 2019-09-16 11:45:00 Registered Clinic 3 SCOT-FANI, HARRISON [facility] [id number] [facility] [place] 2019-09-01 13:46:00 2019-09-01 13:46:00 Registered Clinic [address] [facility] [id number] [facility] [place] 2019-08-13 09:43:00 2019-08-13 09:43:00 Registered Clinic [address] [facility] [id number] [facility] 2019-08-04 10:28:00 2019-08-04 10:28:00 Registered Surgical Day Car e [address] [facility] [id number] [facility] 2019-07-08 00:00:00 2019-07-08 00:00:00 Keegan Crystal D: [address], [address], [place] [address], Ph. [facility] [id number] [facility] 2019-04-27 00:00:00 2019-04-27 00:00:00 Denisse Martin MD: [id number] [place] [address], Ph. [facility] [id number] [facility] 2019-04-20 00:00:00 2019-04-20 00:00:00 Outpatient [facility] [id number] [facility] 2019-04-02 07:12:16 2019-04-02 07:12:16 Outpatient [facility] [id number] [facility] 2019-03-31 00:00:00 2019-03-31 00:00:00 Outpatient [facility] [id number] [facility] 2019-03-10 15:12:17 2019-03-10 15:12:17 Outpatient [facility] [id number] [facility] 2019-03-05 00:00:00 2019-03-05 00:00:00 Outpatient [facility] [id number] [facility] 2019-03-05 00:00:00 2019-03-05 00:00:00 Outpatient [facility] [id number] [facility] 2019-03-03 00:00:00 2019-03-03 00:00:00 Outpatient [facility] [id number] [facility] 2019-02-26 11:07:23 2019-02-26 11:07:23 Outpatient [facility] [id number] [facility] 2019-02-26 11:07:21 2019-02-26 11:07:21 Outpatient [facility] [id number] [facility] 2019-02-23 17:24:32 2019-02-23 17:24:32 Outpatient [facility] [id number] [facility] 2019-02-23 13:03:57 2019-02-23 13:03:57 Outpatient [facility] [id number] [facility] 2019-02-22 22:33:42 2019-02-22 22:33:42 Outpatient [facility] [id number] [facility] 2019-02-10 09:31:53 2019-02-10 09:31:53 Outpatient [facility] [id number] [facility] 2019-01-23 00:00:00 2019-01-23 00:00:00 Outpatient [facility] [id number] [facility] 2019-01-23 00:00:00 2019-01-23 00:00:00 Outpatient [facility] [id number] [facility] 2019-01-21 10:35:55 2019-01-21 10:35:55 Outpatient [facility] [id number] [facility] 2019-01-09 15:56:32 2019-01-09 15:56:32 Outpatient [facility] [id number] [facility] 2019-01-09 14:41:00 2019-01-09 14:41:00 Outpatient [facility] [id number] [facility] 2019-01-09 00:00:00 2019-01-09 00:00:00 Outpatient [facility] [id number] [facility] 2019-01-02 00:00:00 2019-01-02 00:00:00 Outpatient [facility] [id number] [facility] 2018-11-06 16:06:32 2018-11-06 16:06:32 Emergency [facility] [id number] [facility] 2018-11-06 12:21:16 2018-11-06 12:21:16 Emergency [facility] [id number] [facility] 2018-09-19 13:54:52 2018-09-19 13:54:52 Outpatient [facility] [id number] [facility] 2018-09-19 00:00:00 2018-09-19 00:00:00 Outpatient [facility] [id number] [facility] 2018-09-04 00:00:00 2018-09-04 00:00:00 Outpatient [facility] [id number] [facility] 2018-08-28 00:00:00 2018-08-28 00:00:00 Outpatient [facility] [id number] [facility] 2018-07-28 00:00:00 2018-07-28 00:00:00 Outpatient [facility] [id number] [facility] 2018-07-17 00:00:00 2018-07-17 00:00:00 Outpatient [facility] [id number] [facility] 2018-07-15 00:00:00 2018-07-15 00:00:00 Outpatient [facility] [id number] [facility] 2018-07-14 08:57:40 2018-07-14 08:57:40 Outpatient [facility] [id number] [facility] 2018-06-18 13:34:34 2018-06-18 13:34:34 Outpatient [facility] [id number] [facility] 2018-06-18 00:00:00 2018-06-18 00:00:00 Outpatient [facility] [id number] [facility] 2018-06-10 15:37:00 2018-06-10 15:37:00 Outpatient [facility] [id number] [facility] 2018-06-10 13:20:09 2018-06-10 13:20:09 Outpatient [facility] [id number] [facility] 2018-06-03 14:53:50 2018-06-03 14:53:50 Outpatient [facility] [id number] [facility] 2018-04-24 00:00:00 2018-04-24 00:00:00 Emergency [facility] [id number] [facility] 2018-04-16 00:00:00 2018-04-16 00:00:00 Outpatient [facility] [id number] [facility] 2018-04-15 11:35:53 2018-04-15 11:35:53 Outpatient [facility] [id number] [facility] 2018-04-15 10:27:22 2018-04-15 10:27:22 Outpatient [facility] [id number] [facility] 2018-04-11 00:00:00 2018-04-11 00:00:00 Outpatient [facility] [id number] [facility] 2018-04-09 00:00:00 2018-04-09 00:00:00 Outpatient [facility] [id number] [facility] 2018-03-24 20:34:39 2018-03-24 20:34:39 Emergency [facility] [id number] [facility] 2018-03-24 18:15:07 2018-03-24 18:15:07 Emergency [facility] [id number] [facility] 2018-03-24 15:56:34 2018-03-24 15:56:34 Inpatient [facility] [id number] [facility] 2018-03-24 00:00:00 2018-03-24 00:00:00 Emergency [facility] [id number] [facility] 2018-03-24 00:00:00 2018-03-24 00:00:00 Emergency [facility] [id number] [facility] 2018-03-24 00:00:00 2018-03-24 00:00:00 Emergency [facility] [id number] [facility] 2018-03-19 00:00:00 2018-03-19 00:00:00 Outpatient [facility] [id number] [facility] 2018-02-18 00:00:00 2018-02-18 00:00:00 Outpatient [facility] [id number] [facility] 2018-01-31 00:00:00 2018-01-31 00:00:00 Outpatient [facility] [id number] [facility] 2018-01-21 09:59:16 2018-01-21 09:59:16 Outpatient [facility] [id number] [facility] 2018-01-21 00:00:00 2018-01-21 00:00:00 Outpatient [facility] [id number] [facility] 2018-01-20 00:00:00 2018-01-20 00:00:00 Outpatient [facility] [id number] [facility] 2018-01-16 00:00:00 2018-01-16 00:00:00 Outpatient [facility] [id number] [facility] 2018-01-07 03:03:22 2018-01-07 03:03:22 Emergency [facility] [id number] [facility] 2018-01-07 01:47:44 2018-01-07 01:47:44 Emergency [facility] [id number] [facility] 2018-01-07 00:58:42 2018-01-07 00:58:42 Emergency [facility] [id number] [facility] 2018-01-06 21:27:04 2018-01-06 21:27:04 Outpatient [facility] [id number] [facility] 2018-01-06 08:02:33 2018-01-06 08:02:33 Outpatient [facility] [id number] [facility] 2018-01-06 00:00:00 2018-01-06 00:00:00 Emergency [facility] [id number] [facility] 2018-01-02 08:42:41 2018-01-02 08:42:41 Outpatient [facility] [id number] [facility] 2018-01-02 00:00:00 2018-01-02 00:00:00 Outpatient [facility] [id number] [facility] 2017-10-03 00:00:00 2017-10-03 00:00:00 Outpatient [facility] [id number] [facility] 2017-09-11 00:00:00 2017-09-11 00:00:00 Outpatient [facility] [id number] [facility] 2017-09-10 08:45:14 2017-09-10 08:45:14 Outpatient [facility] [id number] [facility] 2017-08-08 00:00:00 2017-08-08 00:00:00 Outpatient [facility] [id number] [facility] 2017-08-05 00:00:00 2017-08-05 00:00:00 Outpatient [facility] [id number] [facility] 2017-07-25 00:00:00 2017-07-25 00:00:00 Outpatient [facility] [id number] [facility] 2017-07-15 00:00:00 2017-07-15 00:00:00 Outpatient [facility] [id number] [facility] 2017-07-08 00:00:00 2017-07-08 00:00:00 Outpatient [facility] [id number] [facility] 2017-07-08 00:00:00 2017-07-08 00:00:00 Outpatient [facility] [id number] [facility] 2017-06-27 11:20:57 2017-06-27 11:20:57 Outpatient [facility] [id number] [facility] 2017-06-13 11:56:32 2017-06-13 11:56:32 Outpatient [facility] [id number] [facility] 2017-06-13 10:51:50 2017-06-13 10:51:50 Outpatient [facility] [id number] [facility] 2017-06-11 14:28:51 2017-06-11 14:28:51 Emergency [facility] [id number] [facility] 2017-06-05 00:00:00 2017-06-05 00:00:00 Outpatient [facility] [id number] [facility] 2017-05-29 09:12:31 2017-05-29 09:12:31 Outpatient [facility] [id number] [facility] 2017-02-08 08:18:16 2017-02-08 08:18:16 Outpatient [facility] [id number] [facility] 2017-01-02 12:21:05 2017-01-02 12:21:05 Outpatient [facility] [id number] [facility] 2017-01-02 09:35:42 2017-01-02 09:35:42 Outpatient [facility] [id number] [facility] 2016-11-14 00:00:00 2016-11-14 00:00:00 Outpatient [facility] [id number] [facility] 2016-11-07 12:54:04 2016-11-07 12:54:04 Outpatient [facility] [id number] [facility] 2016-11-07 07:15:09 2016-11-07 07:15:09 Emergency [facility] [id number] [facility] 2016-11-07 06:39:18 2016-11-07 06:39:18 Emergency [facility] [id number] [facility] 2016-11-07 00:20:32 2016-11-07 00:20:32 Outpatient [facility] [id number] [facility] 2016-10-25 21:18:35 2016-10-25 21:18:35 Emergency [facility] [id number] [facility] 2016-10-25 19:59:19 2016-10-25 19:59:19 Emergency [facility] [id number] [facility] 2016-10-25 18:22:15 2016-10-25 18:22:15 Emergency [facility] [id number] [facility] 2016-10-25 17:44:25 2016-10-25 17:44:25 Emergency [facility] [id number] [facility] Results Test Description Test Time Test Comments Results Result Comments Source CT ABDOMEN/PELVIS WO 2020-01-08 15:27:00 [facility] : 1955 Sex: F [facility] [address] [place] [address] Patient Name: SUZI SCANLON MR #: [id number] : 1955 Age/Sex: 64/F Req #: [id number] Adm Physician: Ordered by: Vera Nogueira MD Report #: [id number] Location: ER Room/Bed: Procedure: [id number] CT/CT ABDOMEN/PELVIS WO Exam Date: 01/08/20 Exam Time: 1504 REPORT STATUS: Signed CT of the abdomen and pelvis, without contrast. History: Abdominal pain. Comparison: CT abdomen/pelvis from 08/04/2019. Technique: Multidetector CT scanning of the abdomen and pelvis was performed from the level of the lung bases to the inferior pubic rami without the use of contrast material. Coronal and sagittal multiplanar reformations were obtained. RADIATION DOSE: Total DLP: 267.28 mGy*cm Dose modulation, iterative reconstruction, and/or weight based adjustment of the mA/kV was utilized to reduce the radiation dose to as low as reasonably achievable. FINDINGS: Linear opacities noted within the right lower lobe suggestive of subsegmental atelectasis. The remaining visualized intrathoracic contents are unremarkable. There is a large volume of simple appearing abdominopelvic ascites present. The liver demonstrates a nodular contour compatible with cirrhosis. No focal hepatic abnormality is identified on this noncontrast enhanced examination. There is stable mild dis tention of the gallbladder containing calcified stones. Findings are unchanged from the prior examination. There is no biliary ductal dilatation. The spleen is prominent measuring up to 13.3 cm in length. The stomach, pancreas, and bilateral adrenal glands demonstrate an unremarkable noncontrast appearance. The kidneys are normal in size and location. Excretion of contrast material is noted within the collecting systems bilaterally and urinary bladder suggestive of recent prior intravenous contrast administration. There is no evidence for nephrolithiasis or hydronephrosis. The ureters are grossly unremarkable. The urinary bladder demonstrates no significant abnormalities. The uterus and adnexa and straight no significant abnormalities. The left The abdominal aorta is normal in course and caliber with atherosclerotic lesions with coarse and branch vessels. The IVC is normal in caliber. Please note evaluation of the bowel is limited without the use of enteric c ontrast material. There is mild wall thickening of loops of small and large bowel likely reflecting portal colopathy/enteropathy. There is no evidence for bowel obstruction or intraperitoneal free air. No abnormally enlarged lymph nodes are identified within the abdomen or pelvis. There is a fat and ascitic fluid containing ventral hernia present, as noted on the prior examination. The osseous structures demonstrates stable degenerative changes without evidence for acute fracture or destructive process. IMPRESSION: CT findings compatible with cirrhosis and sequela of portal hypertension including splenomegaly and large volume of ascites. Wall thickening noted of loops of small and large bowel which is favored to reflect portal colopathy/enteropathy. No evidence for bowel obstruction or perforation. Cholelithiasis. Ventral hernia containing mesenteric fat and ascitic fluid again noted. Signed by: Dr. Nelson Saucedo MD on 01/08/2020 3:39 PM Dictated By: NELSON SAUCEDO MD 1531 Transcribed By: MELANIE on 01/08/20 1539 COPY TO: VERA NOGUEIRA MD Prothrombin time (PT) in platelet poor plasma by coagu lation assay 2019-12-31 15:00:00 Test Item Prothrombin Time (test code = 5902-2) 17.5 11.9-14.5 [facility]wood[facility] in Platelet poor plasma by Coagulation ziuoo1169-04-39 15:00:00* Test Item Value Reference Range Interpretation Comments Prothromb Time International Ratio (test code = 6301-6) 1.36 Oral Anticoagulant Therapy INR Values:1. Low Intensity Therapy 1.5 - 2.02 . Moderate Intensity Therapy 2.0 - 3.03. High Intensity Therapy(1) 2.5 - 3. 54. High Intensity Therapy(2) 3.0 - 4.05. Panic Value INR > 5.0 [facility] sodium measurement (moles/volume)2019-12-31 15:00:00* Test Item Value Reference Range Interpretation Comments Sodium Level (test code = 2951-2) 135 136-145 [facility]eville[facility] or plasma potassium measurement (moles/volume)2019-12-31 15:00:00* Test Item Value Reference Range Interpretation Comments Potassium Level (test code = 2823-3) 2.4 3.5-5.1 Results repeated and called to DR. NOGUEIRA at 1533 on 12/31/19 by ELVER MORALES. Read back and verified.[facility]eville[facility] or plasma chloride measurement (moles/volume)2019-12-31 15:00:00* Test Item Value Reference Range Interpretation Comments Chloride Level (test code = 2075-0) 100 98-107 [facility]eville[facility] or plasma carbon dioxide, total measurement (moles/volume)2019-12-31 15:00:00* Test Item Value Reference Range Interpretation Comments Carbon Dioxide Level (test code = 2028-9) 27 22-29 [facility]evilleerum or plasma anion hge2385-35-75 15:00:00* Test Item Value Reference Range Interpretation Comments Anion Gap (test code = 81045-0) 10.4 8-16 [facility]eville[facility] or plasma urea nitrogen measurement (mass/volume)2019-12-31 15:00:00* Test Item Value Reference Range Interpretation Comments Blood Urea Nitrogen (test code = 3094-0) 8 7-26 [facility]eville[facility] or plasma creatinine measurement (mass/volume)2019-12-31 15:00:00* Test Item Value Reference Range Interpretation Comments Creatinine (test code = 2160-0) 0.70 0.57-1.11 [facility]eville[facility] or plasma urea nitrogen/creatinine mass jukjf5550-43-17 15:00:00* Test Item Value Reference Range Interpretation Comments BUN/Creatinine Ratio (test code = 3097-3) 11 6-25 [facility] KingwoodEstimated glomerular filtration rate (GFR) gjwyuwuvbgzox6333-26-93 15:00:00* Test Item Value Reference Range Interpretation Comments Estimat Glomerular Filtration Rate (test code = 231659163) > 60 >60 Ranges were taken from the National Kidney Disease Education Program and the [facility] Kidney Foundation literature.Reference ranges:60 or greater: Opgril09-80 ( for 3 consecutive months): Chronic kidney disease 15 or less: Kidney failureHCA [facility] Healthcare KingwoodGlucose ttocpdjoxby8521-53-81 15:00:00* Test Item Value Reference Range Interpretation Comments Glucose Level (test code = BIW3432) 159 74-118 [facility]evilleer[facility] or plasma calcium measurement (mass/volume)2019-12-31 15:00:00* Test Item Value Reference Range Interpretation Comments Calcium Level (test code = 65077-1) 7.7 8.4-10.2 [facility] or plasma total bilirubin measurement (mass/volume)2019-12-31 15:00:00* Test Item Value Reference Range Interpretation Comments Total Bilirubin (test code = 1975-2) 1.2 0.2-1.2 [facility] KingwoodFluoroscopic procedure less than one hour ixnsfmlw8269-23-11 15:00:00* Test Item Value Reference Range Interpretation Comments Aspartate Amino Transf (AST/SGOT) (test code = Aspartate Amino Transf (AST/SGOT)) 36 5-34 [facility]eville[facility] or plasma alanine aminotransferase measurement (enzymatic activity/volume)2019-12-31 15:00:00* Test Item Value Reference Range Interpretation Comments Alanine Aminotransferase (ALT/SGPT) (test code = 1742-6) 17 0-55 [facility]eville[facility] or plasma protein measurement (mass/volume)2019-12-31 15:00:00* Test Item Value Reference Range Interpretation Comments Total Protein (test code = 2885-2) 6.8 6.5-8.1 [facility]eville[facility] or plasma albumin measurement (mass/volume)2019-12-31 15:00:00* Test Item Value Reference Range Interpretation Comments Albumin (test code = 1751-7) 2.3 3.5-5.0 [facility] KingwoodPlasma globulin measurement (mass/volume) 2019-12-31 15:00:00* Test Item Value Reference Range Interpretation Comments Globulin (test code = 42279-9) 4.5 2.3-3.5 [facility] or plasma albumin/globulin mass jakxp6174-56-51 15:00:00* Test Item Value Reference Range Interpretation Comments Albumin/Globulin Ratio (test code = 1759-0) 0.5 0.8-2.0 [facility] or plasma alkaline phosphatase measurement (enzymatic activity/volume)2019-12-31 15:00:00* Test Item Value Reference Range Interpretation Comments Alkaline Phosphatase (test code = 6768-6) 117 40-150 [facility] KingwoodUS GUIDED RNETWCMFRHIX9373-32-52 14:17:00 [facility] [address] [place] [address] Patient Name: SUZI SCANLON MR #: [id number] : 1955 Age/Sex: 64/F Req #: [id number] Adm Physician: Ordered by: HARRISON LOPEZ MD Report #: [id number] Location: [facility]/Bed: Procedure: [id number] US/US IRVIN DED PARACENTESIS Exam Date: 12/31/19 [...] one-step, a image was saved. A 5 [place]ibout[place] one-step catheter was inserted and removed from [...] LOPEZ M.D. Specimen source identification of body cplfs8273-09-18 13:44:00* Test Item Value Reference Range Interpretation Comments Body Fluid Type (test code = 56227-1) PERITONEAL [facility] KingwoodEvaluation of color of body fluid 2019-12-31 13:44:00* Test Item Value Reference Range Interpretation Comments Body Fluid Color (test code = 6824-7) YELLOW [facility] KingwoodDetermination of appearance of body fluid 2019-12-31 13:44:00* Test Item Value Reference Range Interpretation Comments Body Fluid Appearance (test code = 9335-1) SL.CLOUDY [facility]woodM[facility] body fluid leukocytes count (number/volume)2019-12-31 13:44:00* Test Item Value Reference Range Interpretation Comments Body Fluid WBC (test code = 6743-9) 56 [facility] body fluid erythrocytes count (number/volume)2019-12-31 13:44:00* Test Item Value Reference Range Interpretation Comments Body Fluid RBC (test code = 6741-3) 191 [facility]woodBlmay[facility] hospital leukocytes automated count (number/volume)2019-12-31 13:20:00* Test Item Value Reference Range Interpretation Comments White Blood Count (test code = 6690-2) 9.17 4.8-10.8 [facility] erythrocytes automated count (number/volume)2019-12-31 13:20:00* Test Item Value Reference Range Interpretation Comments Red Blood Count (test code = 789-8) 3.39 3.6-5.1 [facility] hemoglobin measurement (moles/volume)2019-12-31 13:20:00* Test Item Value Reference Range Interpretation Comments Hemoglobin (test code = 91285-6) 11.1 12.0-16.0 [facility]woodAutcrawley [facility] hospital blood hematocrit (volume fraction)2019-12-31 13:20:00* Test Item Value Reference Range Interpretation Comments Hematocrit (test code = 4544-3) 32.9 34.2-44.1 [facility] KingwoodAutomated erythrocyte mean corpuscular wnundg6640-70-94 13:20:00* Test Item Value Reference Range Interpretation Comments Mean Corpuscular Volume (test code = 787-2) 97.1 81-99 [facility] KingwoodAutomated erythrocyte mean corpuscular hemoglobin (mass per erythrocyte)2019-12-31 13:20:00* Test Item Value Reference Range Interpretation Comments Mean Corpuscular Hemoglobin (test code = 785-6) 32.7 28-32 [facility] KingwoodAutomated erythrocyte mean corpuscular hemoglobin concentration measurement (mass/volume)2019-12-31 13:20:00* Test Item Value Reference Range Interpretation Comments Mean Corpuscular Hemoglobin Concent (test code = 786-4) 33.7 31-35 [facility] KingwoodRDW FvyZd-Mpb7393-06-08 13:20:00* Test Item Value Reference Range Interpretation Comments Red Cell Distribution Width (test code = 06557-9) 15.0 11.7 -14.4 [facility] KingwoodAutomated blood platelet count (count/volume)2019-12-31 13:20:00* Test Item Value Reference Range Interpretation Comments Platelet Count (test code = 777-3) 96 140-360 [facility] KingwoodAutomated blood segmented neutrophil count as percentage of total nmqhmirola0084-57-87 13:20:00* Test Item Value Reference Range Interpretation Comments Neutrophils (%) (Auto) (test code = 81732-2) 86.7 38.7-80.0 [facility] KingwoodAutomated blood lymphocyte count as percentage ot total pcycfecyya8985-67-07 13:20:00* Test Item Value Reference Range Interpretation Comments Lymphocytes (%) (Auto) (test code = 736-9) 6.5 18.0-39.1 [facility] KingwoodAutomated blood monocyte count as percentage of total tyeheaatxk1280-76-87 13:20:00* Test Item Value Reference Range Interpretation Comments Monocytes (%) (Auto) (test code = 5905-5) 5.2 4.4-11.3 [facility] KingwoodAutomated blood eosinophil count as percentage of total bshjbyyywl4541-08-70 13:20:00* Test Item Value Reference Range Interpretation Comments Eosinophils (%) (Auto) (test code = 713-8) 0.7 0.0-6.0 [facility] KingwoodAutomated blood basophil count as percentage of total hipxnswkqi4073-01-76 13:20:00* Test Item Value Reference Range Interpretation Comments Basophils (%) (Auto) (test code = 706-2) 0.2 0.0-1.0 [facility] KingwoodFluoroscopic procedure less than one hour krqxgxag2322-22-95 13:20:00* Test Item Value Reference Range Interpretation Comments IM GRANULOCYTES % (test code = IM GRANULOCYTES %) 0.7 0.0- 1.0 [facility] KingwoodAutomated blood neutrophil count 2019-12-31 13:20:00* Test Item Value Reference Range Interpretation Comments Neutrophils # (Auto) (test code = 751-8) 8.0 2.1-6.9 [facility] KingwoodBlood lymphocytes count (number/volume) 2019-12-31 13:20:00* Test Item Value Reference Range Interpretation Comments Lymphocytes # (Auto) (test code = 75059-4) 0.6 1.0-3.2 [facility] KingwoodBlood monocytes automated count (number/volume)2019-12-31 13:20:00* Test Item Value Reference Range Interpretation Comments Monocytes # (Auto) (test code = 742-7) 0.5 0.2-0.8 [facility] KingwoodAutomated blood eosinophil count 2019-12-31 13:20:00* Test Item Value Reference Range Interpretation Comments Eosinophils # (Auto) (test code = 711-2) 0.1 0.0-0.4 [facility] KingwoodAutomated blood basophil count (count/volume)2019-12-31 13:20:00* Test Item Value Reference Range Interpretation Comments Basophils # (Auto) (test code = 704-7) 0.0 0.0-0.1 [facility] KingwoodFluoroscopic procedure less than one hour khrxquvt4057-01-71 13:20:00* Test Item Value Reference Range Interpretation Comments Absolute Immature Granulocyte (auto (hector t code = Absolute Immature Granulocyte (auto) 0.06 0-0.1 [facility] KingwoodUS ABDOMEN LHMNHVF9673-83-89 13:57:00 [place] [address] Patient Name: SUZI SCANLON MR #: [id number] : 1955 Age/Sex: 64/F Req #: [id number] [facility] Physician: Ordered by: HARRISON LOPEZ MD Report #: [id number] Location: Room/Bed: Procedure: [id number] US/US ABD OMEN LIMITED Exam Date: 12/17/19 [...] Signed By: LAITH SULLIVAN MD on 12/17/19 1356 Transcribed By: MELANIE on 12/17/19 1358 COPY TO: HARRISON LOPEZ M.D. Capillary blood glucose measurement by glucometer (mass/volume)2019-12-17 12:56:00* Test Item Value Reference Range Interpretation Comments Bedside Glucose (test code = 55757-6) 171 70-120 Meter ID: [id number] [facility]US GUIDED YOYJTXUFQBWM2599-05-04 15:30:00 [place] [address] Patient Name: SUZI SCANLON MR #: [id number] : 1955 Age/Sex: 64/F Req #: [id number] Adm Physician: Ordered by: HARRISON LOPEZ MD Report #: [id number] Location: Room/Bed: Procedure: US/ IRVIN DED PARACENTESIS [...] one-step, a image was saved. A 5 [place]iboutian one-step catheter was inserted and removed from [...] HARRISON LOPEZ M.D. Manual body fluid neutrophils/100 htpadgudvk3531-37-99 14:46:00* Test Item Value Reference Range Interpretation Comments Body Fluid Neutrophils (test code = 44585-1) 28 [facility] KingwoodBody fluid lymphocyte omexz1957-52-05 14:46:00* Test Item Value Reference Range Interpretation Comments Body Fluid Lymphocytes (test code = 66449298) 55 [facility] KingwoodBody fluid monocyte efrhg1354-94-10 14:46:00* Test Item Value Reference Range Interpretation Comments Body Fluid Monocytes (test code = 02954-3) 17 [facility] KingwoodTotal cell dgjrz7966-95-92 14:46:00* Test Item Value Reference Range Interpretation Comments Body Fluid Total Cells Counted (test code = 24825-2) 100 [facility] KingwoodActivated partial thromboplastin time (aPTT) in platelet poor plasma by coagulation gbemy4751-29-22 13:06:00* Test Item Value Reference Range Interpretation Comments Activated Partial Thromboplast Time (test code = 07672-8) 34.5 23.8-35.5 [facility] KingwoodBlood culture, aerobic & anaerobic 2019-12-02 06:03:07* Test Item Value Reference Range Interpretation Comments Blood culture isolate (test code = 600-7) No growth after 5 days of incubation. Specimen InformationSpecimen Source: BloodSpecimen Site: UNSPECIFIED [facility] MethodistAnaerobic gnpjesq4849-46-65 09:24:22* Test Item Value Reference Range Interpretation Comments Anaerobic culture isolate (test code = 552) No anaerobic organis ms isolated. Specimen InformationSpecimen Source: Per itoneal fluidSpecimen Site: Abdomen [facility] CenteristAerobic knmpevv4491-73-90 04:57:31* Test Item Value Reference Range Interpretation Comments Aerobic culture isolate (test code = 498) No growth after 3 days. 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 Interpretation (test code = 45516-2) Abnormal [facility] nqgpynho9702-07-41 09:37:09* Test Item Value Reference Range Interpretation Comments WBC (test code = 61043-5) 7.78 4.50- 11.00 k/uL RBC (test code = 03756-6) 3.16 m/uL 4.2-5.5 L HGB (test code = 718-7) 10.5 g/dL 12-16 L HCT (test code = 4544-3) 31.0 % 37-47 L MCV (test code = 787-2) 98.1 fL 82-100 MCH (test code = 785-6) 33.2 pg 27-34 MCHC (test code = 786-4) 33.9 g/dL 31-37 RDW - SD (test code = 82126-9) 55.0 fL 37-55 MPV (test code = 66310-4) 13.1 fL 8.8-13.2 Platelet count (test code = 58116-0) 91 150- 400 k/uL L Nucleated RBC (test code = 07993-1) 0.30 /100 WBC Lab Interpretation (test code = 42667-8) Abnormal [facility] MethodistBasic metabolic ouwbj5503-89-74 07:11:20* Test Item Value Reference Range Interpretation Comments Sodium (test code = 2951-2) 138 135- 148 mEq/L Potassium (test code = 2823-3) 3.3 3.5- 5.0 mEq/L L Chloride (test code = 2075-0) 102 98- 112 mEq/L CO2 (test code = 2028-9) 25 24- 31 mEq/L Anion gap (test code = 33691-7) 11@ANIO 7- 15 mEq/L BUN (test code = 3094-0) 6 mg/dL 8-23 L Creatinine (test code = 2160-0) 0.58 mg/dL 0.5-0.9 Glucose (test code = 2345-7) 66 mg/dL 65-99 Calcium (test code = 73150-3) 8.5 mg/dL 8.8-10.2 L Lab Interpretation (test code = 32275-4) Abnormal [facility] MethodistHepatic function hcqpk4157-45-69 07:11:20* Test Item Value Reference Range Interpretation Comments Albumin (test code = 1751-7) 2.7 g/dL 3.5-5 L Total bilirubin (test code = 1975-2) 1.1 mg/dL 0-1.2 Bilirubin direct (test code = 1968-7) 0.4 mg/dL 0-0.3 H Alkaline phosphatase (test code = 6768-6) 116 U/L 35-104 H Protein (test code = 2885-2) 6.2 g/dL 6.3-8.3 L -[place] 4.6- 7.0 g/dL1 week 4.4-7.6 g/dL7 months-1year 5.1-7.3 g/dL1-2 years 5.6-7.5 g/dL>3 years 6.0-8.0 g/kS64-765 6.3-8.3 g/dL ALT (test code = 1742-6) 14 U/L 5-50 AST (test code = 1920-8) 29 U/L 10-35 Lab Interpretation (test code = 44837-5) Abnormal [facility] MethodistEstimated HQP4297-77-65 07:11:20* Test Item Value Reference Range Interpretation Comments Estimated GFR (test code = 5488) >=90 mL/min/1.73 m2 Catergory Units InterpretationG1 >=90 Normal or highG2 60-89 Mildly bdlxmjlvfO3i 45-59 Mildly to moderately zkesprehsB5b 30-44 Moderately to severely decreasedG4 15-29 Severely decreasedG5 <15 Kidney failureThe eGFR was calculated using the Chronic Kidney Disease Epidemiology Collaboration (CKD-EPI) equation. Interpretation is based on recommendations of the National Kidney Foundation-Kidney Disease Outcomes Quality Initiative (NKF-KDOQI) published in 2014. [facility] TaoismMRI Abdomen W Wo Ibzlsnmn8638-22-44 18:47:01Hm Interface, Radiology Results 11/27/2019 6:50 PM [...] biju h follow-up liver protocol CT or MRI.RM-CEQMPJ9EdanwadTexas Health Southwest Fort Worthurgical pathology tonmunj5165-90-20 18:12:26* Test Item Value Reference Range Interpretation Comments Case number (test code = 3402824) [id number] Surgical pathology report (test code = 2255) See link below for PDF Lab Report Result status (test code = 3453519) This is Final Report for [id number] [facility] HospitalGram nmton4345-15-20 07:43:50Gram stain isolateFew WBC'sNo organisms seen Comment: Specimen InformationSpecimen Source: Peritoneal fluidSpecimen Site: Abdomen [facility] MethodFormerly [facility] Abdomen Pelvis W Xahwofzf9696-37-56 23:12:12Hm Interface, Radiology Results - 11/26/2019 11:15 PM CDTCT ABDOMEN PELVIS W [...] to exclude enteritis/colitis is advised. Question of gastritis.[facility]-[id number] [facility]ero[facility] MethodistCell count and differential, body fgawc5203-67-73 21:49:53* Test Item Value Reference Range Interpretation Comments [facility] fluid type (test code = 59017-7) Paracentesis Color, fluid (test code = 6824-7) Yellow Appearance, fluid (test code = 9335-1) Clear RBC, fluid (test code = 10749-9) SEE COMMENT /CMM 1+ (0 - 500 RBC/CMM) Nucleated cells, fluid (test code = 36778-6) 229 /CMM Fluid mononuclear cell (test code = 1407) See Diff Neutrophils, fluid (test code = 16198-5) 21 % Lymphocytes, fluid (test code = 52736-9) 7 % Mesothelial cells, fluid (test code = 82424-0) 1 % Macrophages, fluid (test code = 20660-9) 69 % Plasma cells, fluid (test code = 14491-2) 2 % [facility] MethodistProtein, [facility] hospitalc otutz2012-88-68 20:56:05* Test Item Value Reference Range Interpretation Comments Fluid type (test code = 22844-0) Paracentesis Protein, fluid (test code = 2881-1) 1.0 g/dL The reference interval(s) and other method performance specifications have not been established for this body fluid. The test results must be integrated into the clinical context for interpretation.This test has been modified from the manufacturers instructions. The performance characteristics were determined by [facility] in a manner consistent with CLIA requirements. This test has not been cleared or approved by the U.S. Food and Drug Administration. [facility] Abdominal Paracentesis Cuwnmha8224-37-23 18:28:02Hm Interface, Radiology Results 11/26/2019 6:31 PM [...] prepared and draped using all elements of [facility] sterile barrier technique including sterile gloves, [...] applied.Additional details:Estimated blood loss: Less than 10 [facility]- [id number] MethodistProthrombin time with QDX3048-47-21 05:27:10* Test Item Value Reference Range Interpretation Comments Prothrombin time (test code = 5902-2) 18.8 11.5- 14.5 sec H INR (test code = 79804-6) 1.6 Th e International Normalized Ratio (INR) is a therapeutic monitoring tool for patients who are stable on oral anticoagulant therapy. An INR of 2.0-3.0 is suggested for deep vein thrombosis/pulmonary embolism. Lab Interpretation (test code = 94223-0) Abnormal [facility] MethodistUrine ryjqfvq6352-69-61 10:45:16* Test Item Value Reference Range Interpretation Comments Urine culture (test code = 3302026) SEE COMMENT Bacteriuria screen negative. [place]jo MethodistUrinalysis screen and microscopy, with reflex to culture 2019-11-25 10:45:14* Test Item Value Reference Range Interpretation Comments Specimen site (test code = 6048908) Clean catch Color, UA (test code = 5778-6) Angeline Appearance, UA (test code = 5767-9) Clear Specific gravity, UA (test code = 5811-5) 1.031 1.001-1.035 pH, UA (test code = 5803-2) 5.0 5.0-8.5 Protein, UA (test code = 27976-7) 1+ Negative A Glucose, UA (test code = 00404-8) Negative Negative Ketones, UA (test code = 2514-8) Negative Negative Bilirubin, UA (test code = 5770-3) Positive@UBIL Negative A Blood, UA (test code = 5794-3) Negative Negative Nitrite, UA (test code = 5802-4) Negative Negative Urobilinogen, UA (test code = 96721-6) 4.0 <2.0 A Leukocyte esterase, UA (test code = 5799-2) Negative Negative Epithelial cells, UA (test code = 5787-7) 3 /HPF WBC, UA (test code = 5821-4) 1 0- 4 /HPF RBC, UA (test code = 79584-7) 1 0- 5 /HPF Bacteria, UA (test code = 62298-3) None seen None seen Yeast, UA (test code = 48567-1) Few A Yeast with pseudohyphae, UA (test code = 08038-7) None seen Hyaline casts, UA (test code = 5796-8) 3 /LPF Lab Interpretation (test code = 60199-1) Abnormal [facility]Com[facility] metabolic nvhen2087-68-05 04:51:30* Test Item Value Reference Range Interpretation Comments Sodium (test code = 2951-2) 137 135- 148 mEq/L Potassium (test code = 2823-3) 3.3 3.5- 5.0 mEq/L L Chloride (test code = 2075-0) 100 98- 112 mEq/L CO2 (test code = 2027-9) 23 24- 31 mEq/L L Anion gap (test code = 40025-8) 14@ANIO 7- 15 mEq/L BUN (test code = 3094-0) 9 mg/dL 8-23 Creatinine (test code = 2160-0) 0.58 mg/dL 0.5-0.9 Glucose (test code = 2345-7) 131 mg/dL 65-99 H Calcium (test code = 70093-4) 7.4 mg/dL 8.8-10.2 L Protein (test code = 2885-2) 5.4 g/dL 6.3-8.3 L -[place] 4.6- 7.0 g/dL1 week 4.4-7.6 g/dL7 months-1year 5.1-7.3 g/dL1-2 years 5.6-7.5 g/dL>3 years 6.0-8.0 g/qZ43-093 6.3-8.3 g/dL Albumin (test code = 1751-7) 2.4 g/dL 3.5-5 L A/G ratio (test code = 1759-0) 0.8 0.7-3.8 Alkaline phosphatase (test code = 6768-6) 68 U/L 35-104 AST (test code = 1920-8) 29 U/L 10-35 ALT (test code = 1742-6) 12 U/L 5-50 Total bilirubin (test code = 1974-2) 1.6 mg/dL 0-1.2 H Lab Interpretation (test code = 52188-2) Abnormal [facility] MethodistBilirubin jstkgu7019-25-85 04:51:30* Test Item Value Reference Range Interpretation Comments Bilirubin direct (test code = 1967-7) 0.7 mg/dL 0-0.3 H Lab Interpretation (test code = 81499-2) Abnormal [facility] MethodistMagnesium reohu1616-60-13 04:51:30* Test Item Value Reference Range Interpretation Comments Magnesium (test code = 23383-4) 1.5 mg/dL 1.6-2.4 L Lab Interpretation (test code = 22299-1) Abnormal [facility] MethodistPhosphorus nhdwp2092-03-09 04:51:27* Test Item Value Reference Range Interpretation Comments Phosphorus (test code = 2777-1) 2.0 mg/dL 2.4-4.5 L Lab Interpretation (test code = 35783-9) Abnormal [facility] MethodistXR Chest 1 Vw Jtjovseo2794-61-55 11:39:07Hm Interface, Radiology Results 11/24/2019 11:42 AM [...] calcified atherosclerotic disea se.The bones are unremarkable. [facility] [place]L-[id number] MethodistHemoglobin A1c 2019-11-24 08:07:49* Test Item Value Reference Range Interpretation Comments Hemoglobin A1C (test code = 50175-6) 5.8 % 4-5.6 H HbA1c cutoffs for diagnosing diabetes:4.0% - 5.6% = normal5.7% - 6.4% = increased risk for diabetes (prediabetes)9>=6.5% = rkztyjfn1Saaym for glycemic control (ADA 2016)< 7.0% Target for non adults with diabetes. More or less stringent targets may be appropriate for individual patients. <7.5% Target for Children and adolescents with type 1 diabetes. Lab Interpretation (test code = 76424-6) Abnormal [facility] MethodistXR Abdomen 1 Vw Matyfiyn7530-81-84 12:55:13Hm Interface, Radiology Results 11/23/2019 12:58 PM [...] no plain fi lm evidence of free air.[facility]3LW52093OLYqbnbmi MethodistAlpha fetoprotein 2019-11-23 05:54:41* Test Item Value Reference Range Interpretation Comments Alpha fetoprotein (test code = 33874-1) 6.0 ng/mL 0-8.3 The Fred 8000 AFP immunoassay was used. Results obtained with different assay methods or kits should not be used interchangeably and may be different. [facility] with platelet and oybsajuifvde5142-79-28 05:30:55* Test Item Value Reference Range Interpretation Comments WBC (test code = 15196-5) 6.45 4.50- 11.00 k/uL RBC (test code = 86798-3) 3.08 m/uL 4.2-5.5 L HGB (test code = 718-7) 10.1 g/dL 12-16 L HCT (test code = 4544-3) 31.3 % 37-47 L MCV (test code = 787-2) 101.6 fL 82-100 H MCH (test code = 785-6) 32.8 pg 27-34 MCHC (test code = 786-4) 32.3 g/dL 31-37 RDW - SD (test code = 31077-8) 56.0 fL 37-55 H MPV (test code = 89192-8) 12.6 fL 8.8-13.2 Platelet count (test code = 60228-1) 77 150- 400 k/uL L Nucleated RBC (test code = 37975-1) 0.00 /100 WBC Neutrophils (test code = 76122-1) 80.2 % 39-69 H Lymphocytes (test code = 00242-3) 9.6 % 25-45 L Monocytes (test code = 73449-8) 8.8 % 0-10 Eosinophils (test code = 73364-8) 0.9 % 0-5 Basophils (test code = 96646-7) 0.2 % 0-1 Immature granulocytes (test code = 87639-1) 0.3 % 0-1 "Immature granulocytes" (promyelocytes, myelocytes, metamyelocytes) Lab Interpretation (test code = 76048-5) Abnormal [facility] MethodistLactic acid uidqp2536-66-27 06:22:56* Test Item Value Reference Range Interpretation Comments Lactic acid (test code = 23519-3) 2.9 mmol/L 0.5-2.2 H Lab Interpretation (test code = 36748-8) Abnormal [place]jo OrmrvulofDjjjsa7335-41-09 17:41:02Randa Prabhakar CRNA 11/20/2019 5:45 PMAirwayDate/Time: 11/20/2019 5:05 PMPerformed by: Randa Prabhakar CRNAAuthorized by: Allen Loco MD Location: ORUrgency: ElectiveDifficult Airway: No Anesthesiologist: Allen Loco MDResident/LEATHER DRIER/AA: Randa Prabhakar CRNAPerformed by: resident/LEATHER DRIER/AAPreoxygenated with 100% O2: Yes C-spine Precautions Maintained [...] X 1 with Pastor 2 blade by LEATHER DRIER; grade I view obtained. 7.0 ETT advanced through vocal cords with direct visualization, cuff to occlusive seal, placement confirmed with bilateral chest rise, +mist in ETT, and +etCO2. Atraumatic intubation-lips and gums (patient edentulous). OGT easily placed for case duration, stomach decompressed, and OGT placed to gravity. [facility] MethodistPotassium, qeygupq2424-27-13 15:46:56* Test Item Value Reference Range Interpretation Comments Potassium, syringe (test code = 2007) 3.2 3.5- 5.0 mEq/L L Lab Interpretation (test code = 42585-9) Abnormal [facility] MethodistType and xsrvkn9024-42-25 12:55:00* Test Item Value Reference Range Interpretation Comments ABO grouping (test code = 883-9) O Rh type (test code = 63629-2) POS Antibody screen (gel) (test code = 890-4) NEG [facility] MethodistPotassium yvclk0745-97-46 12:29:58* Test Item Value Reference Range Interpretation Comments Potassium (test code = 2823-3) 2.8 3.5- 5.0 mEq/L LL Lab Interpretation (test code = 98906-4) Abnormal [facility] MethodistLactic acid level, SEPSIS - Now and repeat 2x every 3 hours 2019-11-20 05:19:56* Test Item Value Reference Range Interpretation Comments Lactic acid (test code = 60189-4) 2.8 mmol/L 0.5-2.2 H Lab Interpretation (test code = 22652-5) Abnormal [facility] MethodistCOVID-19 qualitative NYB9053-86-11 03:11:13* Test Item Value Reference Range Interpretation Comments Interpretation (test code = 5945707) Negative results do not preclude 2019-nCoV infection and should not be used as the sole basis for treatment or other patient management decisions. Negative results must be combined with clinical observations, patient history, and epidemiological information. COVID-19 qualitative PCR result (test code = 14476-5) Not-Detect ed Not-Detected COVID-19 qualitative PCR (test code = 7070) See link below for P DF Lab Report [facility] MethodistAmmonia aydhd0614-94-40 01:12:46* Test Item Value Reference Range Interpretation Comments Ammonia (test code = 1841-6) 66 umol/L 11-51 H Lab Interpretation (test code = 20584-6) Abnormal [facility] MethodistAlcohol level, nijpz6711-90-98 00:43:26* Test Item Value Reference Range Interpretation Comments Alcohol percent (test code = 5643-2) None Detected % Normal None DetectedLegal Intoxication in [place] 80 mg/dL (0.08%) - Whole BloodToxic Concentration 200 mg/dL (0.2%)Potentially Fatal 350 - 500 mg/dL (0.35 - 0.5%) [facility] MethodistLipase vquka6884-74-56 00:43:26* Test Item Value Reference Range Interpretation Comments Lipase (test code = 3040-3) 14 U/L 13-60 [facility] MethodistPartial thromboplastin time, nwmsvyorc3754-38-58 00:03:18* Test Item Value Reference Range Interpretation Comments PTT (test code = 81578-7) 33.9 23.0- 36.0 sec PTT therapeutic range for unfractionated heparin is61.0-112.0 seconds which corresponds to Anti-Xa0.3-0.7 U/ml. [facility] MethodistUS GUIDED HGXFQMRHASOC1583-45-23 14:27:00 [place] [address] Patient Name: SUZI SCANLON MR #: [id number] : 1955 Age/Sex: 64/F Req #: [id number] Adm Physician: Ordered by: HARRISON LOPEZ MD Report #: [id number] Location: Room/Bed: Procedure: [id number] US/ IRVIN DED PARACENTESIS Exam Date: 11/16/19 Exam Time: 1343 REPORT STATUS: Signed HISTORY : Symptomatic ascites. Technique/findings: Informed written consent was ob tained. Discussion of risks, benefits, and alternatives were made with the pat iefabian. The patient expressed understanding and agreed to [...] one-step, a image was saved. A 5 [place]ib[place]ian one-step catheter was inserted and removed from [...] VERGARA M.D. Body fluid other cells manual ckmze7187-61-38 13:56:00* Test Item Value Reference Range Interpretation Comments Body Fluid Other Cells (test code = 058833119) 16 [facility]CROPHAGES [facility]US ABDOMEN OHBOUHH0638-40-14 14:49:00 [place] [address] Patient Name: SUZI SCANLON MR #: [id number] : 1955 Age/Sex: 64/F Req #: [id number] Adm Physician: Ordered by: HARRISON LOPEZ MD Report #: [id number] Location: US Room/Bed: Procedure: US/US ABD OMEN [...] US GUIDED PARACENTESIS 2019-11-02 15:59:00 [place] [address] Patient Name: SUZI SCANLON MR #: [id number] : 1955 Age/Sex: 64/F Req #: [id number] Adm Physician: Ordered by: HARRISON LOPEZ MD Report #: [id number] Location: Room/Bed: Procedure: US/US IRVIN DED PARACENTESIS [...] 3:59 PM Dictated By: DELANO WEBER MD 054 Transcribed By: MELANIE on 11/02/191558 COPY TO: HARRISON LOPEZ M.D. Body fluid eosinophil kdfiuwzbeu6178-58-03 13:31:00* Test Item Value Reference Range Interpretation Comments Body Fluid Eosinophils (test code = 69268-6) 2 [facility]wood[facility] GUIDED FEFAKMNININO9719-91-08 14:02:00 [facility] [address] [address] Patient Name: SUZI SCANLON MR #: [id number] : 1955 Age/Sex: 64/F Req #: [id number] Adm Physician: Ordered by: HARRISON LOPEZ MD Report #: [id number] Location: [facility] o/Bed: Procedure: US/ IRVIN DED PARACENTESIS [...] 2:03 PM Dictated By: DELANO WEBER MD 1403 Transcribed By: MELANIE on 10/26/19 140 COPY TO: HARRISON LOPEZ M.D. US GUIDED VXJLBMOORRFP8191-04-73 14:48:00 [place] [address] Patient Name: SUZI SCANLON MR #: [id number] : 1955 Age/Sex: 64/F Req #: [id number] Adm Physician: Ordered by: HARRISON LOPEZ MD Report #: [id number] Location: US Room/Bed: Procedure: US/US IRVIN DED PARACENTESIS Exam Date: 10/19/19 [...] 3:08 PM Dictated By: DELANO WEBER MD 1464 Transcribed By: MELANIE on 10/19/19 1093 COPY TO: HARRISON LOPEZ M.D. Fluoroscopic procedure less than one hour zmkckrak9944-35-80 13:07:00* Test Item Value Reference Range Interpretation Comments Differential Total Cells Counted (test code = Dae westbrookl Total Cells Counted) 100 [facility] neutrophils/100 leukocytes 2019-10-19 13:07:00* Test Item Value Reference Range Interpretation Comments Neutrophils % (Manual) (test code = 25296-7) 76 40-74 [facility] lymphocytes/100 leukocytes 2019-10-19 13:07:00* Test Item Value Reference Range Interpretation Comments Lymphocytes % (Manual) (test code = 737-7) 19 19-48 [facility] monocytes/100 leukocytes 2019-10-19 13:07:00* Test Item Value Reference Range Interpretation Comments Monocytes % (Manual) (test code = 744-3) 5 3.4-9.0 [facility]woodBlood platelets count by estimate (number/volume)2019-10-19 13:07:00* Test Item Value Reference Range Interpretation Comments Platelet Estimate (test code = 90652-3) MODERATELY DECREASED [facility] KingwoodPlatelet ooorodzbll9500-34-74 13:07:00* Test Item Value Reference Range Interpretation Comments Platelet Morphology Comment (test code = 18651-0) FEW LARGE [facility] KingwoodBlood polychromasia detection by light koweanpvyg3812-68-99 13:07:00* Test Item Value Reference Range Interpretation Comments Polychromasia (test code = 37668-4) FEW [facility] hypochromia detection by light alycxbirlo7365-91-54 13:07:00* Test Item Value Reference Range Interpretation Comments Hypochromasia (test code = 728-6) SLIG [facility] KingwoodRB kimhmxhmxz6767-81-94 13:07:00* Test Item Value Reference Range Interpretation Comments Red Cell Morphology Comment (test code = 6742-1) NORMAL [facility] KingwoodAlbumin, misc emvxg4283-00-28 16:41:33* Test Item Value Reference Range Interpretation Comments Fluid type (test code = 05400-5) Ascitic Albumin, fluid (test code = 1747-5) 0.5 g/dL The reference interval(s) and other method performance specifications have not been established for this body fluid. The test results must be integrated into the clinical context for interpretation.This test has been modified from the manufacturers instructions. The performance characteristics were determined by [facility] in a manner consistent with CLIA requirements. This test has not been cleared or approved by the U.S. Food and Drug Administration. [facility] Abdomen Qsfgmyhm1078-25-03 16:25:10Hm Interface, Radiology Results 10/09/2019 4:28 PM [...] ascites. No sonographic Leos sign.3.Other findings as above1RM1RAD_PS01[facility] MethodistT4, free 2019-10-09 07:13:07* Test Item Value Reference Range Interpretation Comments T4, free (test code = 3024-7) 1.5 ng/dL 0.9-1.7 [facility] HospitalThyroid stimulating bgsyatz1568-68-79 07:13:07* Test Item Value Reference Range Interpretation Comments TSH (test code = 3016-3) 0.59 0.27- 4.20 uIU/mL [facility]ist[facility]ED VTKFOUKJIGQN0571-50-12 15:27:00 [place] [address] Patient Name: SUZI SCANLON MR #: [id number] : 1955 Age/Sex: 64/F Re #: [id number] [facility] Physician: Ordered by: HARRISON LOPEZ MD Report #: [id number] Location: Room/Bed: Procedure: US/ IRVIN DED PARACENTESIS [...] 3:28 PM Dictated By: DELANO WEBER MD 152 Transcribed By: MELANIE on 09/30/198 COPY TO: HARRISON VENCES M.D. Body fluid basophil qxaxacfgjx7126-98-59 14:09:00* Test Item Value Reference Range Interpretation Comments Body Fluid Basophils (test code = 43620-9) See Comment Moderate Mesotheial cells are found on slideCHI [facility]health [facility] TexasUS GUIDED UANXOHGRKVDY1452-86-15 12:51:00 [place] [address] Patient Name: SUZI SCANLON MR #: [id number] : 1955 Age/Sex: 64/F Req #: [id number] Adm Physician: Ordered by: HARRISON LOPEZ MD Report #: [id number] Location: US Room/Bed: Procedure: [id number] US/US IRVIN DED PARACENTESIS Exam Date: 06/24/20 Exam Time: 1211 REPORT STATUS: Signed Procedure: Ultrasound-guided paracentesis wire brush operator: Nelson Saucedo MD Pre- operative diagnosis: [...] COPY TO: HARRISON LOPEZ M.D. US GUIDED NMZUBPDNDIFA3784-95-64 15:51:00 [place] [address] Patient Name: SUZI SCANLON MR #: [id number] : 1955 Age/Sex: 64/F Req #: [id number] Adm Physician: Ordered by: ADAM GALLARDO MD Report #: [id number] Location: Room/Bed: Procedure: [id number] US/US GUIDED P ARACENTESIS Exam Date: 09/01/19 Exam Time: 1427 REPORT STATUS: Signed Procedure: Ult rasound-guided paracentesis wire brush operator: Tripp Hammer M.D. Pre- operative diagnosis: [...] 15 51 Transcribed By: MELANIE on 09/01/19 6792 COPY TO: ADAM GALLARDO MD Body fluid glucose measurement (mass/volume)2019-09-01 15:02:00* Test Item Value Reference Range Interpretation Comments Body Fluid Glucose (test code = 2344-0) 178 [facility]woodBody fluid protein measurement (mass/volume)2019-09-01 15:02:00* Test Item Value Reference Range Interpretation Comments Body Fluid Total Protein (test code = 2881-1) < 0.8 [facility] KingwoodBody fluid lactate dehydrogenase measurement (enzymatic activity/volume)2019-09-01 15:02:00* Test Item Value Reference Range Interpretation Comments Body Fluid Lactate Dehydrogenase (test code = 529683881) 33 No reference range has been established for this specimen type.[facility] KingwoodBody fluid amylase measurement (enzymatic activity/volume)2019-09-01 15:02:00* Test Item Value Reference Range Interpretation Comments Body Fluid Amylase (test code = 1795-4) 15 No reference range has been established for this specimen type.[facility] KingwoodBody fluid triglyceride measurement (mass/volume) 2019-09-01 15:02:00* Test Item Value Reference Range Interpretation Comments Body Fluid Triglycerides (test code = 62151-7) 19 Not Est ab. The reference intervals and other method performancespecifications have not been established for this test. Thetest result should be integrated into the clinical contextfor interpretation.The reference interval(s) and other method performance specificationshave not been established for this body fluid. The test result must beintegrated into the clinical context for interpretation.Performed at: - [facility] [address] [id number] Director: Diego hopkins MD, Phone: [phone] Houston Healthcare KingwoodBody fluid albumin measurement (mass/volume)2019-09-01 15:02:00* Test Item [...] must beintegrated into the clinical context for interpretation.[facility] KingwoodFluoroscopic procedure less than one hour duration 2019-09-01 15:02:00* Test Item Value Reference Range Interpretation Comments Body Fluid Total Bilirubin (test code = Body Fluid Total Bilirubin) <0.2 RESULT: <0.2mg/dLINTERPRETIVE INFORMATION: Bilirubin, Total, Body FluidFor information on body fluid reference ranges and/or interpretive guidance visit http://Ogone/bodyfluids/Test developed and characteristics determined by [facility]. See Compliance Statement B: Ogone/[facility]ONHI [facility] TexaspH xouclxwrupj1733-37-49 15:02:00* Test Item Value Reference Range Interpretation Comments Body Fluid pH (test code = 11530-5) 7.9 Not Estab. The reference interval(s) and other method performance specificationshave not be en established for this body fluid. The test result must beintegrated into the c linical context for interpretation.Performed at: [facility] LabCynthia [address] [place], [place] [id number] Director: Sandra Pretty MD, Phone: [phone] [facility] TexasBody fluid lipase measurement (enzymatic activity/volume)2019-09-01 15:02:00* Test Item Value Reference Range Interpretation Comments Peritoneal Fluid Lipase (test code = 52023-9) 13 U/L INTERPRETIVE INFORMATION: Lipase, FluidFor information on body fluid referen ce ranges and/or interpretive guidance visit http://Ogone/bodyfluids/Test developed and characteristics determined by [facility]. See Compliance Sta temjacques B: [employer].Embly/CSCHI [facility] TexasUS PELVIS COMPLETE NON UJ0838-62-61 10:50:00 [place] [address] Patient Name: SUZI SCANLON MR #: [id number] : 1955 Age/Sex: 64/F Req #: [id number] Adm Physician: Ordered by: ADAM GALLARDO MD Report #: [id number] Location: US Room/Bed: Procedure: [id number] US/US PELVIS C OMPLETE NON OB Exam [...] 08/19/19 1313 COPY TO: ADAM ORTEGA MD IXNIICIVVXDQ0193-01-58 10:50:00 [place] [address] Patient Name: SUZI SCANLON MR #: [id number] : 1955 Age/Sex: 64/F Req #: [id number] Adm Physician: Ordered by: ADAM GALLARDO MD Report #: [id number] Location: US Room/Bed: Procedure: [id number] US/US TRANSVAG INAL Exam Date: 08/13/19 Exam [...] By: SANTIAGO WHIPPLE MD 1313 COPY TO: ILNETTE GALLARDO MD CT ABDOMEN/PELVIS LS4271-29-74 09:18:00 [place] [address] Patient Name: SUZI SCANLON MR #: [id number] : 1955 Age/Sex: 64/F Req #: [id number] Adm Physician: Ordered by: ADAM GALLARDO MD Report #: [id number] Location: OR Room/Bed: Procedure: 2257-5432 CT/CT ABDOMEN/ PELVIS WO Exam Date: 08/04/19 [...] 08/05/19931 COPY TO: ADAM GALLARDO MD PROTHROMBIN YENJ0950-91-32 16:50:00* Test Item Value Reference Range Interpretation [...] Mechanical prosthetic heart valves (2.5-3.5) THROMBOPLASTIN TIME JZVYDXM1413-28-07 16:50:00* Test Item Value Reference Range Interpretation Comments THROMBOPLASTIN TIME PARTIAL (test code = PTT) 40.8 seconds 25.0-36. 5 H LJAFCFRVWJ0828-74-94 16:50:00* Test Item Value Reference Range Interpretation Comments FIBRINOGEN (test code = FIB) 100 mg/dL 200-400 L FIBRIN SPLIT GCDAMZP8024-38-84 16:50:00* Test Item Value Reference Range Interpretation Comments FIBRIN SPLIT PRODUCT (test code = FSP) TEST NOT PERFORMED mcg/mL < 5 E-RPOKX1717-29TAOAT6527-35-30 16:50:00* Test Item Value Reference Range Interpretation Comments D-DIMER (test code = DDIMER) 5166.00 ng/mLFEU 0-500 HH Results called to [id number] results verified and read back by Nurse? [...] TEST NOT PERFORMED % 75- 135 PROTHROMBIN MPBA5474-74-05 16:43:00* Test Item Value Reference Range Interpretation [...] Mechanical prosthetic heart valves (2.5-3.5) THROMBOPLASTIN TIME VEBNDDY7408-23-78 16:43:00* Test Item Value Reference Range Interpretation Comments THROMBOPLASTIN TIME PARTIAL (test code = PTT) 38.0 seconds 25.0-36. 5 H YESATZKUTH2154-15-29 16:43:00* Test Item Value Reference Range Interpretation Comments FIBRINOGEN (test code = FIB) 106 mg/dL 200-400 L FIBRIN SPLIT IEYTJKA9896-68-74 16:43:00* Test Item Value Reference Range Interpretation Comments FIBRIN SPLIT PRODUCT (test code = FSP) TEST NOT PERFORMED mcg/mL < 5 Z-AMESP6312-00SSUMH1582-52-14 16:43:00* Test Item Value Reference Range Interpretation Comments D-DIMER (test code = DDIMER) 4562.00 ng/mLFEU 0-500 HH Results called to [id number] by [employer].JP1 06/02/19 0337Critical results verified and read back [...] NOT PERFORMED % 75- 135 US GUIDED RBADHOFXDTFQ1616-67-75 15:11:00 [facility] [address] [place] [address] Patient Name: SUZI SCANLON MR #: [id number] : 1955 Age/Sex: 64/F Req #: [id number] [facility] Physician: Ordered by: ADAM GALLARDO MD Report #: [id number] Location: OR Room/Bed: Procedure: [id number] US/US GUIDED P ARACENTESIS Exam Date: 08/04/19 Exam Time: 1439 REPORT STATUS: Signed Procedure: Ult rasound-guided paracentesis wire brush operator: Nelson Saucedo MD Pre-ope rative diagnosis: [...] 10:55 AM Dictated By: DELANO WEBER MD Transcribed By: MELANIE on 08/05/195 COPY TO: ADAM GALLARDO MD Fluoroscopic procedure less than one hour jdzmjkxf5098-89-43 10:20:00 * Test Item Value Reference Range [...] Pathology Laboratories are certified under the [facility] Laboratory Improvement Amendments of 1988 (CLIA), 42 U.S.C. section 263a , to perform high complexity tests.Specimen sent to [facility] and testing performed by [facility] [address] [place] [address] [phone] Director: Brenton Glover M.D.CLIA # [id number] [facility] TexasGLUBED2020-03-20 07:55:00* Test Item Value Reference Range Interpretation Comments GLUBED (test code = GLUBED) 104 mg/dL 74-106 N Performed by certified drilling plant operator at [facility] BASIC METABOLIC MZEKK1909-91-92 06:11:00* Test Item Value Reference Range Interpretation [...] code = CA) 7.4 mg/dL 8.5-10.1 L GMLGXQHVSV3979-86-54 06:11:00* Test Item Value Reference Range Interpretation Comments PHOSPHORUS (test code = PHOS) 2.4 mg/dL 2.5-4.9 L NYURQXFSS9279-25-89 06:11:00* Test Item Value Reference Range Interpretation Comments MAGNESIUM (test code = MAG) 2.0 mg/dL 1.8-2.4 N BASIC METABOLIC IMNCX8593-92-54 06:08:00* Test Item Value Reference Range Interpretation [...] CALCIUM (test code = CA) mg/dL 8.5-10.1 DKDFKQGARD4270-92-18 06:08:00* Test Item Value Reference Range Interpretation Comments PHOSPHORUS (test code = PHOS) mg/dL 2.5-4.9 TCNMSROLA4293-47-34 06:08:00* Test Item Value Reference Range Interpretation Comments MAGNESIUM (test code = MAG) mg/dL 1.8-2.4 CBC W/AUTO DEYM0685-52-86 06:07:00* Test Item Value Reference Range Interpretation [...] = MDIFF) NO, ONLY SCAN NEEDED DIFFERENTIAL [id number] 06:07:00* Test Item Value Reference Range Interpretation [...] (test code = PLTMORPH) NORMAL CBC W/AUTO UMLR5588-75-54 05:41:00* Test Item Value Reference Range Interpretation [...] = MDIFF) NO, ONLY SCAN NEEDED DIFFERENTIAL PUPO1093-50-42 05:41:00* Test Item Value Reference Range Interpretation Comments STAIN ACCEPTABILITY (test code = STN ACCEPTABLE) CABOT RINGS (test code = CAB) MORPHOLOGY COMMENT (test code = MOC) PLATELET ESTIMATE (test code = PLTEST) PLATELET MORPHOLOGY (test code = PLTMORPH) CBC W/AUTO [id number] 05:41:00* Test Item Value Reference Range Interpretation [...] = MDIFF) NO, ONLY SCAN NEEDED DIFFERENTIAL [id number] 05:41:00* Test Item Value Reference Range Interpretation Comments STAIN ACCEPTABILITY (test code = STN ACCEPTABLE) MORPHOLOGY COMMENT (test code = MOC) PLATELET ESTIMATE (test code = PLTEST) PLATELET MORPHOLOGY (test code = PLTMORPH) CBC W/AUTO [id number] 05:40:00* Test Item Value Reference Range Interpretation [...] = MDIFF) NO, ONLY SCAN NEEDED DIFFERENTIAL [id number] 05:40:00* Test Item Value Reference Range Interpretation Comments STAIN ACCEPTABILITY (test code = STN ACCEPTABLE) CABOT RINGS (test code = CAB) MORPHOLOGY COMMENT (test code = MOC) PLATELET ESTIMATE (test code = PLTEST) PLATELET MORPHOLOGY (test code = PLTMORPH) CBC W/AUTO [id number] 05:40:00* Test Item Value Reference Range Interpretation [...] = MDIFF) NO, ONLY SCAN NEEDED DIFFERENTIAL [id number] 05:40:00* Test Item Value Reference Range Interpretation Comments STAIN ACCEPTABILITY (test code = STN ACCEPTABLE) CABOT RINGS (test code = CAB) MORPHOLOGY COMMENT (test code = MOC) PLATELET ESTIMATE (test code = PLTEST) PLATELET MORPHOLOGY (test code = PLTMORPH) CBC W/AUTO [id number] 05:37:00* Test Item Value Reference Range Interpretation [...] # (test code = BA#) K/mm3 0.0-0.2 [id number] 20:48:00* Test Item Value Reference Range Interpretation Comments GLUBED (test code = GLUBED) 205 mg/dL 74-106 H Performed by certified drilling plant operator at [facility] [id number] 16:40:00* Test Item Value Reference Range Interpretation Comments GLUBED (test code = GLUBED) 132 mg/dL 74-106 H Performed by certified drilling plant operator at [facility] [id number] 12:03:00* Test Item Value Reference Range Interpretation Comments GLUBED (test code = GLUBED) 169 mg/dL 74-106 H Performed by certified drilling plant operator at [facility] [id number] 08:17:00* Test Item Value Reference Range Interpretation Comments GLUBED (test code = GLUBED) 90 mg/dL 74-106 N Performed by certified drilling plant operator at [facility] [id number] 21:38:00* Test Item Value Reference Range Interpretation Comments GLUBED (test code = GLUBED) 256 mg/dL 74-106 H Performed by certified drilling plant operator at [facility] [id number] 18:16:00* Test Item Value Reference Range Interpretation Comments GLUBED (test code = GLUBED) 210 mg/dL 74-106 H Performed by certified drilling plant operator at [facility] CBC W/AUTO [id number] 11:26:00* Test Item Value Reference Range Interpretation [...] = MDIFF) NO, ONLY SCAN NEEDED DIFFERENTIAL [id number] 11:26:00* Test Item Value Reference Range Interpretation Comments STAIN ACCEPTABILITY (test code = STN ACCEPTABLE) STAIN ACCEPTABLE ANISOCYTOSIS (test code = ANISO) 1+ MACROCYTOSIS (test code = MACR) 1+ PLATELET ESTIMATE (test code = PLTEST) DECREASED PLATELET MORPHOLOGY (test code = PLTMORPH) APPEAR LARGE BASIC METABOLIC [id number] 10:48:00* Test Item Value Reference Range Interpretation [...] CA) 7.5 mg/dL 8.5-10.1 L BASIC METABOLIC [id number] 10:48:00* Test Item Value Reference Range Interpretation [...] CA) 7.5 mg/dL 8.5-10.1 L CBC W/AUTO [id number] 10:14:00* Test Item Value Reference Range Interpretation [...] = MDIFF) NO, ONLY SCAN NEEDED DIFFERENTIAL [id number] 10:14:00* Test Item Value Reference Range Interpretation Comments STAIN ACCEPTABILITY (test code = STN ACCEPTABLE) CABOT RINGS (test code = CAB) MORPHOLOGY COMMENT (test code = MOC) PLATELET ESTIMATE (test code = PLTEST) PLATELET MORPHOLOGY (test code = PLTMORPH) CBC W/AUTO [id number] 10:14:00* Test Item Value Reference Range Interpretation [...] = MDIFF) NO, ONLY SCAN NEEDED DIFFERENTIAL [id number] 10:14:00* Test Item Value Reference Range Interpretation Comments STAIN ACCEPTABILITY (test code = STN ACCEPTABLE) CABOT RINGS (test code = CAB) MORPHOLOGY COMMENT (test code = MOC) PLATELET ESTIMATE (test code = PLTEST) PLATELET MORPHOLOGY (test code = PLTMORPH) CBC W/AUTO [id number] 10:14:00* Test Item Value Reference Range Interpretation [...] = MDIFF) NO, ONLY SCAN NEEDED DIFFERENTIAL [id number] 10:14:00* Test Item Value Reference Range Interpretation Comments STAIN ACCEPTABILITY (test code = STN ACCEPTABLE) MORPHOLOGY COMMENT (test code = MOC) PLATELET ESTIMATE (test code = PLTEST) PLATELET MORPHOLOGY (test code = PLTMORPH) CBC W/AUTO [id number] 10:14:00* Test Item Value Reference Range Interpretation [...] = MDIFF) NO, ONLY SCAN NEEDED DIFFERENTIAL [id number] 10:14:00* Test Item Value Reference Range Interpretation Comments STAIN ACCEPTABILITY (test code = STN ACCEPTABLE) CABOT RINGS (test code = CAB) MORPHOLOGY COMMENT (test code = MOC) PLATELET ESTIMATE (test code = PLTEST) PLATELET MORPHOLOGY (test code = PLTMORPH) [id number] 08:24:00* Test Item Value Reference Range Interpretation Comments GLUBED (test code = GLUBED) 90 mg/dL 74-106 N Performed by certified drilling plant operator at [facility] [id number] 05:54:00* Test Item Value Reference Range Interpretation Comments GLUBED (test code = GLUBED) 82 mg/dL 74-106 N Performed by certified drilling plant operator at [facility] [id number] 19:57:00* Test Item Value Reference Range Interpretation Comments GLUBED (test code = GLUBED) 214 mg/dL 74-106 H Performed by certified drilling plant operator at [facility] [id number] 16:35:00* Test Item Value Reference Range Interpretation Comments GLUBED (test code = GLUBED) 323 mg/dL 74-106 H Performed by certified drilling plant operator at [facility] [id number] 12:21:00* Test Item Value Reference Range Interpretation Comments GLUBED (test code = GLUBED) 332 mg/dL 74-106 H Performed by certified drilling plant operator at [facility] [id number] 08:45:00* Test Item Value Reference Range Interpretation Comments GLUBED (test code = GLUBED) 296 mg/dL 74-106 H Performed by certified drilling plant operator at [facility] [id number] 21:55:00* Test Item Value Reference Range Interpretation Comments GLUBED (test code = GLUBED) 261 mg/dL 74-106 H Performed by certified drilling plant operator at [facility] [id number] 16:42:00* Test Item Value Reference Range Interpretation Comments GLUBED (test code = GLUBED) 225 mg/dL 74-106 H Performed by certified drilling plant operator at [facility] - SP PARACENTESIS W [id number] 13:30:00 Name: SUZI SCANLON [facility] : 1955 Age/S: 64 / F [address] Unit #: [id number] Loc: [place] [address] Phys: Ramon Lemons MD Acct: [id number] Dis Date: Status: ADM IN PHONE #: [phone] Exam Date: 06/08/2019 1318 FAX #: [phone] Reason: / EXAMS: CPT CODE: [id number] SP PARACENTESIS W IMAGE 64842 Fluoro Time: DAP (Gy m2): Air Kerma (mGy): REASON FOR EXAM: Ascites EXAM ORDER DATE: 06/08/2019 1:01 PM Ordering: Ramon Lemons MD Attending:Ramon Lemons MD Location:[facility] PROCEDURE: Ultrasound guided paracentesis CPT code: 53079, 44878 FINDINGS: After informed consent was obtained, the [...] guide wire was inserted and an 8 Djiboutian drainage catheter was inserted in the abdominal cavity. 6.9 L of fluid obtained. The catheter was removed and hemostasis obtained. Samples were submitted for lab analysis. MEDICATIONS: None COMPLICATIONS: None. Blood loss: less than 5cc. IMPRESSION: 6.9 L of fluid removed from the abdomen. at 1330 Reported and signed by: Fred Isaacs M.D. CC: Ramon Lemons MD Technologist: JONNY PATEL RT Trnscb Date/Time: 06/08/2019 (7660) Ibrahima Orig Print D/T: S: 06/08/2019 (0772) PAGE 1 Signed Report CBC W/AUTO [id number] 13:11:00* Test Item Value Reference Range Interpretation [...] = MDIFF) NO, ONLY SCAN NEEDED DIFFERENTIAL [id number] 13:11:00* Test Item Value Reference Range Interpretation Comments STAIN ACCEPTABILITY (test code = STN ACCEPTABLE) STAIN ACCEPTABLE POLYCHROMASIA (test code = POLC) 1+ POIKILOCYTOSIS (test code = POIK) 2+ ANISOCYTOSIS (test code = ANISO) 2+ MACROCYTOSIS (test code = MACR) 2+ ANNITA CELLS (test code = ANINTA) 2+ NONE PLATELET ESTIMATE (test code = PLTEST) DECREASED PLATELET MORPHOLOGY (test code = PLTMORPH) NORMAL [id number] 12:28:00* Test Item Value Reference Range Interpretation Comments GLUBED (test code = GLUBED) 247 mg/dL 74-106 H Performed by certified drilling plant operator at [facility] PROTHROMBIN [id number] 11:32:00* Test Item Value Reference Range Interpretation [...] (2.5-3.5) IS PATIENT ON ANTICOAGULANTS? NTHROMBOPLASTIN TIME [id number] 11:32:00* Test Item Value Reference Range Interpretation Comments THROMBOPLASTIN TIME PARTIAL (test code = PTT) 35.4 seconds 25.0-36. 5 N IS PATIENT ON ANTICOAGULANTS? NCBC W/AUTO [id number] 11:20:00* Test Item Value Reference Range Interpretation [...] = MDIFF) NO, ONLY SCAN NEEDED DIFFERENTIAL [id number] 11:20:00* Test Item Value Reference Range Interpretation Comments STAIN ACCEPTABILITY (test code = STN ACCEPTABLE) CABOT RINGS (test code = CAB) MORPHOLOGY COMMENT (test code = MOC) PLATELET ESTIMATE (test code = PLTEST) PLATELET MORPHOLOGY (test code = PLTMORPH) CBC W/AUTO [id number] 11:20:00* Test Item Value Reference Range Interpretation [...] = MDIFF) NO, ONLY SCAN NEEDED DIFFERENTIAL [id number] 11:20:00* Test Item Value Reference Range Interpretation Comments STAIN ACCEPTABILITY (test code = STN ACCEPTABLE) MORPHOLOGY COMMENT (test code = MOC) PLATELET ESTIMATE (test code = PLTEST) PLATELET MORPHOLOGY (test code = PLTMORPH) CBC W/AUTO [id number] 11:20:00* Test Item Value Reference Range Interpretation [...] = MDIFF) NO, ONLY SCAN NEEDED DIFFERENTIAL [id number] 11:20:00* Test Item Value Reference Range Interpretation Comments STAIN ACCEPTABILITY (test code = STN ACCEPTABLE) MORPHOLOGY COMMENT (test code = MOC) PLATELET ESTIMATE (test code = PLTEST) PLATELET MORPHOLOGY (test code = PLTMORPH) CBC W/AUTO [id number] 11:20:00* Test Item Value Reference Range Interpretation [...] = MDIFF) NO, ONLY SCAN NEEDED DIFFERENTIAL [id number] 11:20:00* Test Item Value Reference Range Interpretation Comments STAIN ACCEPTABILITY (test code = STN ACCEPTABLE) CABOT RINGS (test code = CAB) MORPHOLOGY COMMENT (test code = MOC) PLATELET ESTIMATE (test code = PLTEST) PLATELET MORPHOLOGY (test code = PLTMORPH) [id number] 08:43:00* Test Item Value Reference Range Interpretation Comments GLUBED (test code = GLUBED) 239 mg/dL 74-106 H Performed by certified drilling plant operator at [facility] [id number] 16:20:00* Test Item Value Reference Range Interpretation Comments GLUBED (test code = GLUBED) 277 mg/dL 74-106 H Performed by certified drilling plant operator at [facility] [id number] 12:13:00* Test Item Value Reference Range Interpretation Comments GLUBED (test code = GLUBED) 251 mg/dL 74-106 H Performed by certified drilling plant operator at [facility] [id number] 08:40:00* Test Item Value Reference Range Interpretation Comments GLUBED (test code = GLUBED) 288 mg/dL 74-106 H Performed by certified drilling plant operator at [facility] - CT ABD PELVIS [id number] 20:49:00 Name: SUZI SCANLON [facility] : 1955 Age/S: 64 / F [address] [facility] Unit #: [id number] Loc: [place] [address] Phys: Ramon Lemons MD Acct: [id number] Dis Date: Status: ADM IN PHONE #: [phone] Exam Date: 06/06/2019 1650 FAX #: [phone] Reason: STAT PLEASE EXAMS: CPT CODE: [id number] CT ABD PELVIS W/CONT 68327 HISTORY: STAT PLEASE TECHNIQUE: Immediate and delayed [...] 1 Signed Report (CONTINUED) Name: SUZI SCANLON [facility] : 1955 Age/S: 64 / F [address] [facility] Unit #: [id number] Loc: [place] [address] Phys: Ramon Lemons MD Acct: [id number] Dis Date: Status: ADM IN PHONE #: [phone] Exam D ate: 06/06/2019 1650 FAX #: [phone] Reason: STAT PLEASE EXAMS: CPT CODE: [id number] CT ABD PELVIS W/CONT 67111 <Continued> Patchy bibasilar airspace opacification. Small right pleural effusion. Correlate with clinical evidence of pneumonia. LOCATION: [facility] at 2048 Reported and signed by: Juli Montes De Oca D.O. CC: Ramon Lemons MD Technologist:Nakia Galeana RT(R),CT CTDI: DLP: Trnscb Date/Time: 06/06/2019 (2048) [email or web address] Orig Print D/T: S: 06/06/2019 (2051) PAGE 2 Signed Report - US ABDOMEN [id number] 19:45:00 Name: SUZI SCANLON [facility] : 1955 Age/S: 64 / F [address] [facility] Unit #: [id number] Loc: [place] [address] Phys: Ramon Lemons MD Acct: [id number] Dis Date: Status: ADM IN PHONE #: [phone] Exam Date: 06/06/2019 1910 FAX #: [phone] Reason: SEVERE ASCITES/SOB/RESP DISTRESS EXAMS: CPT CODE: [id number] ABDOMEN LTD 22242 CLINICAL HISTORY: SEVERE ASCITES TECHNIQUE: Static grayscale images from limited sonographic survey the abdomen for detection of ascites. COMPARISON: None IMPRESSION: Large ascites observed within all 4 quadrants. Fluid appears simple. LOCATION: [facility] at 1944 Reported and signed by: Juli Montes De Oca D.O. CC: Ramon Lemons MD Technologist: KARYNA ORR US Trnscb Date/Time: 06/06/2019 (1944) [email or web address] Orig Print D/T: S: 06/06/2019 (1947) Probe: PAGE 1 Signed Report [id number] 06:17:00* Test Item Value Reference Range Interpretation Comments TRIGLYCERIDES (test code = TRIG) 86 mg/dL 20-150 N Are CHOL,TRIG & HDL ordered? [id number] 20:46:00* Test Item Value Reference Range Interpretation Comments GLUBED (test code = GLUBED) 266 mg/dL 74-106 H Performed by certified drilling plant operator at [facility] FLUID,[id number] 17:37:00 RUN DATE: 06/05/19 [facility] Lab PAGE 1 RUN TIME: 1737 Specimen Inqui ry RUN USER: INTERFACE PATIENT: SUZI SCANLON ACCT #: [id number] LOC: [facility] U #: [id number] AGE/SX: 64/F ROOM: 3032 RE05/30/19REG DR: Ramon Lemons MD : 55 BED: A DIS: STATUS: ADM IN TLOC: SPEC #: [id number] RECD: 06/03/19 STATUS: PAWEL ZAVALA #: [id number] JERONIMO: 06/03/19- SUBM DR: Kinza rIeland MD ENTERED: 06/03/19 SP TYPE: FL ASCITES OTHR DR: Virginia Salma shaniqua or Family Physician Reshma Crowder MD, Shahid MDORDERED: GROSS COPIES TO: [place] Primary or Family Physician Reshma Dixon MD [address] [place] [id number] Santiago Garza [address] [place] [address] Kinza Ireland MD [address] [place], [place] [address] PROCEDURES: GROSS (-151) TISSUES: ASCITES FLUID - 8 CC CLEAR CLINICAL HISTORY COLLECTION DATE: 06/03/19 ASCITES, CIRRHOSIS, DM2 FINAL DIAGNOSIS Ascites fluid for cytology, paracentesis: MESOTHELIAL CELLS AND WHITE BLOOD CELLS NEGATIVE FOR MALIGNANCY DMDavid/gia Ayala 066[address], 33192 CONTINUED ON NEXT PAGE RUN DA TE: 06/05/19 [facility] PAG E 2 RUN TIME: 1737 Specimen Inquiry RUN USER: INTERFACE SPEC #: [id number] PATIENT: SUZI SCANLON #[id number] (Continued) MACROSCOPIC The specimen is designated as "ascites fluid" and consists of 8 cc of clear fluid for concent ration and evaluation. A cell block is prepared. GROSS PERFORMED AT [facility] [address] [place] [address] (p)[phone] MICROSCOPIC All of the s tains, including any controls performed, stain appropriately. MICROSCOPI C PERFORMED AT [facility] [address] [place] [address] (p)[phone] PERFORMING SITE Di agnosis performed at: [facility] [address] [place] [address] Signed SIGNATURE ON FILE Marina Lundberg MD 06/05/19 1737 END OF REPORT [id number] 17:29:00* Test Item Value Reference Range Interpretation Comments GLUBED (test code = GLUBED) 245 mg/dL 74-106 H Performed by certified drilling plant operator at [facility] [id number] 12:28:00* Test Item Value Reference Range Interpretation Comments GLUBED (test code = GLUBED) 230 mg/dL 74-106 H Performed by certified drilling plant operator at [facility] LIPID PROFILE (CORONARY RISK)2019-06-05 11:52:00* Test [...] This LDL result is a direct measurement.========= [id number] 11:47:00* Test Item Value Reference Range Interpretation Comments GLYCOSYLATED HEMOGLOBIN (HA1C) (test code = GLYHGB) 5.8 % HbA1 SUGGESTED DIAGNOSIS: HbA1C (%) Diabetic >6.4Prediabetes 5.7 - 6.4Normal <5.7 ESTIMATED AVERAGE GLUCOSE (test code = EAG) 120 MG/DL [id number] 08:03:00* Test Item Value Reference Range Interpretation Comments GLUBED (test code = GLUBED) 237 mg/dL 74-106 H Performed by certified drilling plant operator at [facility] BASIC METABOLIC [id number] 02:40:00* Test Item Value Reference Range Interpretation [...] CA) 7.2 mg/dL 8.5-10.1 L CBC W/AUTO [id number] 01:48:00* Test Item Value Reference Range Interpretation [...] code = NRBC#) 0.04 K/mm3 0.0-0.1 N [id number] 18:52:00* Test Item Value Reference Range Interpretation Comments GLUBED (test code = GLUBED) 224 mg/dL 74-106 H Performed by certified drilling plant operator at [facility] [id number] 16:09:00* Test Item Value Reference Range Interpretation Comments GLUBED (test code = GLUBED) 234 mg/dL 74-106 H Performed by certified drilling plant operator at [facility] [id number] 16:09:00* Test Item Value Reference Range Interpretation Comments GLUBED (test code = GLUBED) 227 mg/dL 74-106 H Performed by certified drilling plant operator at [facility] BODY FLUID CELL [id number] 13:48:00* Test Item Value Reference Range Interpretation [...] Reviewed by Pathologist, JENN CHASE M.D.06/04/19REVIEWED FLUID [id number] 13:48:00* Test Item Value Reference Range Interpretation Comments FLUID PH (test code = PHFL) 7.0 6.8-7.6 N FLUID [id number] 13:48:00* Test Item Value Reference Range Interpretation Comments FLUID GLUCOSE (test code = GLUFL) 153 mg/dL FLUID [id number] 13:48:00* Test Item Value Reference Range Interpretation Comments FLUID PROTEIN (test code = PROTFL) 0.5 gram/dL FLUID [id number] 13:48:00* Test Item Value Reference Range Interpretation Comments FLUID LDH (test code = LDHFL) 43 IUnit/L - SP PARACENTESIS W [id number] 12:39:00 Name: SUZI SCANLON [facility] : 1955 Age/S: 64 / F [address] Unit #: [id number] Loc: [place] [address] Phys: Kinza Ireland MD Acct: [id number] Dis Date: Status: ADM IN PHONE #: [phone] Exam Date: 06/03/2019 1238 FAX #: [phone] Reason: / EXAMS: CPT CODE: [id number] SP PARACENTESIS W IMAGE 03156 Fluoro Time: DAP (Gy m2): Air Kerma [...] administered and using sonographic guidance an 8 Djiboutian pigtail catheter was inserted into the peritoneal cavity. 5 L of ascites fluid were drained and samples were sent to the lab. The drainage catheter was then removed. No complications. IMPRESSION: Successful ultrasound-guided paracentesis. Location code: [facility] at 1239 Re ported and signed by: Jonatan Diaz M.D. CC: Kinza Ireland MD Technologist: JONNY PATEL [employer] SAL[employer] PROFESSIONAL Trnscb Date/Time: 06/04/2019 (1239) [email or web address] Orig Print D/T: S: 06/04/2019 (1025) PAGE 1 Signed Report BASIC METABOLIC PANEL [...] CA) 7.2 mg/dL 8.5-10.1 L CBC W/AUTO [id number] 02:12:00* Test Item Value Reference Range Interpretation [...] code = NRBC#) 0.04 K/mm3 0.0-0.1 N [id number] 20:31:00* Test Item Value Reference Range Interpretation Comments GLUBED (test code = GLUBED) 164 mg/dL 74-106 H Performed by certified drilling plant operator at [facility] [id number] 18:08:00* Test Item Value Reference Range Interpretation Comments GLUBED (test code = GLUBED) 128 mg/dL 74-106 H Performed by certified drilling plant operator at [facility] BODY FLUID CELL [id number] 14:32:00* Test Item Value Reference Range Interpretation [...] BY (test code = REVIEW) PATHOLOGIST FLUID [id number] 14:32:00* Test Item Value Reference Range Interpretation Comments FLUID PH (test code = PHFL) 7.0 6.8-7.6 N FLUID [id number] 14:32:00* Test Item Value Reference Range Interpretation Comments FLUID GLUCOSE (test code = GLUFL) 153 mg/dL FLUID [id number] 14:32:00* Test Item Value Reference Range Interpretation Comments FLUID PROTEIN (test code = PROTFL) 0.5 gram/dL FLUID [id number] 14:32:00* Test Item Value Reference Range Interpretation Comments FLUID LDH (test code = LDHFL) 43 IUnit/L BODY FLUID CELL CT/[id number] 14:28:00* Test Item Value Reference Range Interpretation [...] BY (test code = REVIEW) PATHOLOGIST FLUID [id number] 14:28:00* Test Item Value Reference Range Interpretation Comments FLUID PH (test code = PHFL) 7.0 6.8-7.6 N FLUID [id number] 14:28:00* Test Item Value Reference Range Interpretation Comments FLUID GLUCOSE (test code = GLUFL) 153 mg/dL FLUID [id number] 14:28:00* Test Item Value Reference Range Interpretation Comments FLUID PROTEIN (test code = PROTFL) 0.5 gram/dL FLUID [id number] 14:28:00* Test Item Value Reference Range Interpretation Comments FLUID LDH (test code = LDHFL) 43 IUnit/L BODY FLUID CELL [id number] 14:07:00* Test Item Value Reference Range Interpretation [...] BY (test code = REVIEW) PATHOLOGIST FLUID [id number] 14:07:00* Test Item Value Reference Range Interpretation Comments FLUID PH (test code = PHFL) 7.0 6.8-7.6 N FLUID [id number] 14:07:00* Test Item Value Reference Range Interpretation Comments FLUID GLUCOSE (test code = GLUFL) mg/dL FLUID [id number] 14:07:00* Test Item Value Reference Range Interpretation Comments FLUID PROTEIN (test code = PROTFL) gram/dL FLUID [id number] 14:07:00* Test Item Value Reference Range Interpretation Comments FLUID LDH (test code = LDHFL) IUnit/L BODY FLUID CELL [id number] 14:06:00* Test Item Value Reference Range Interpretation [...] BY (test code = REVIEW) PATHOLOGIST FLUID [id number] 14:06:00* Test Item Value Reference Range Interpretation Comments FLUID PH (test code = PHFL) 7.0 6.8-7.6 N FLUID [id number] 14:06:00* Test Item Value Reference Range Interpretation Comments FLUID GLUCOSE (test code = GLUFL) mg/dL FLUID [id number] 14:06:00* Test Item Value Reference Range Interpretation Comments FLUID PROTEIN (test code = PROTFL) gram/dL FLUID [id number] 14:06:00* Test Item Value Reference Range Interpretation Comments FLUID LDH (test code = LDHFL) IUnit/L BODY FLUID CELL CT/[id number] 14:04:00* Test Item Value Reference Range Interpretation [...] BY (test code = REVIEW) PATHOLOGIST FLUID [id number] 14:04:00* Test Item Value Reference Range Interpretation Comments FLUID PH (test code = PHFL) 6.8-7.6 FLUID [id number] 14:04:00* Test Item Value Reference Range Interpretation Comments FLUID GLUCOSE (test code = GLUFL) mg/dL FLUID [id number] 14:04:00* Test Item Value Reference Range Interpretation Comments FLUID PROTEIN (test code = PROTFL) gram/dL FLUID [id number] 14:04:00* Test Item Value Reference Range Interpretation Comments FLUID LDH (test code = LDHFL) IUnit/L BODY FLUID CELL [id number] 13:48:00* Test Item Value Reference Range Interpretation [...] BY (test code = REVIEW) PATHOLOGIST FLUID [id number] 13:48:00* Test Item Value Reference Range Interpretation Comments FLUID PH (test code = PHFL) 6.8-7.6 FLUID [id number] 13:48:00* Test Item Value Reference Range Interpretation Comments FLUID GLUCOSE (test code = GLUFL) mg/dL FLUID [id number] 13:48:00* Test Item Value Reference Range Interpretation Comments FLUID PROTEIN (test code = PROTFL) gram/dL FLUID [id number] 13:48:00* Test Item Value Reference Range Interpretation Comments FLUID LDH (test code = LDHFL) IUnit/L BASIC METABOLIC [id number] 05:07:00* Test Item Value Reference Range Interpretation [...] code = CA) 7.1 mg/dL 8.5-10.1 L [id number] 05:07:00* Test Item Value Reference Range Interpretation Comments PHOSPHORUS (test code = PHOS) 2.2 mg/dL 2.5-4.9 L [id number] 05:07:00* Test Item Value Reference Range Interpretation Comments MAGNESIUM (test code = MAG) 2.0 mg/dL 1.8-2.4 N CALCIUM [id number] 05:07:00* Test Item Value Reference Range Interpretation Comments CALCIUM IONIZED (test code = NORBERTO) 1.14 mmol/L 1.12-1.32 N BASIC METABOLIC [id number] 04:00:00* Test Item Value Reference Range Interpretation [...] code = CA) 7.1 mg/dL 8.5-10.1 L [id number] 04:00:00* Test Item Value Reference Range Interpretation Comments PHOSPHORUS (test code = PHOS) 2.2 mg/dL 2.5-4.9 L [id number] 04:00:00* Test Item Value Reference Range Interpretation Comments MAGNESIUM (test code = MAG) 2.0 mg/dL 1.8-2.4 N CALCIUM [id number] 04:00:00* Test Item Value Reference Range Interpretation Comments CALCIUM IONIZED (test code = NORBERTO) mmol/L 1.12-1.32 BASIC METABOLIC [id number] 03:50:00* Test Item Value Reference Range Interpretation [...] CALCIUM (test code = CA) mg/dL 8.5-10.1 [id number] 03:50:00* Test Item Value Reference Range Interpretation Comments PHOSPHORUS (test code = PHOS) mg/dL 2.5-4.9 [id number] 03:50:00* Test Item Value Reference Range Interpretation Comments MAGNESIUM (test code = MAG) mg/dL 1.8-2.4 CALCIUM [id number] 03:50:00* Test Item Value Reference Range Interpretation Comments CALCIUM IONIZED (test code = NORBERTO) mmol/L 1.12-1.32 PROTHROMBIN [id number] 03:20:00* Test Item Value Reference Range Interpretation [...] (2.5-3.5) IS PATIENT ON ANTICOAGULANTS? NCOMMENTS TO PROGRAMMER ENGINEERING AND SCIENTIFIC: NEED FOR PROCEDURE 05/23ROMBOPLASTIN TIME [id number] 03:20:00* Test Item Value Reference Range Interpretation Comments THROMBOPLASTIN TIME PARTIAL (test code = PTT) 34.7 seconds 25.0-36. 5 N IS PATIENT ON ANTICOAGULANTS? NCOMMENTS TO PROGRAMMER ENGINEERING AND SCIENTIFIC: NEED FOR PROCEDURE 05/23 04/13CBC W/AUTO [id number] 03:05:00* Test Item Value Reference Range Interpretation [...] code = NRBC#) 0.04 K/mm3 0.0-0.1 N [id number] 02:43:00* Test Item Value Reference Range Interpretation Comments GLUBED (test code = GLUBED) 154 mg/dL 74-106 H Performed by certified drilling plant operator at [facility] [id number] 02:43:00* Test Item Value Reference Range Interpretation Comments GLUBED (test code = GLUBED) > 500 mg/dL 74-106 HH [facility] certified drilling [facility] - HEPA IMAG INCL GB W [id number] 16:05:00 FAX: Puspha Neff NP [phone] [place]: [address] St: ADM FAX: Kinza Ireland MD [phone] Name: SUZI SCANLON [facility] : 1955 Age/S: 64/F [address] Unit #: [id number] Loc: [place] [address] Phys: Pushpa Neff NP Acct: [id number] Dis Date: Status: ADM IN PHONE #: [phone] Exam Date: 06/02/2019 2682 FAX #: [phone] Reason: gall bladder sludge EXAMS: CPT CODE: [id number] HEPA IMAG INCL GB W PHA [id number] REASON FOR EXAM: gall bladder sludge Exam Order Date: 06/02/2019 2:16 PM Ordering: Pushpa Neff NP Attending:Sandra Ireland MD Location:[facility] Procedure: - HEPA IMAG INCL G [...] by: Fred Isaacs M.D. CC: Pushpa Neff TURKEY CLEANER; Kinza Ireland Technologist: Alayna Doty RT(N) Trnscrd Date/Time/By: 06/02/2019 (1605) : By: Ibrahima Orig Print D/T: S: 06/02/2019 (5437) PAGE 1 Signed Report - US ABDOMEN [id number] 14:53:00 Name: SUZI SCANLON [facility] : 1955 Age/S: 64 / F [address] Brown Unit #: [id number] Loc: [place], [place] [address] Phys: Gloria Montes De Oca MD Acct: [id number] Dis Date: Status: ADM IN PHONE #: [phone] Exam Date: 06/02/2019 1410 FAX #: [phone] Reason: ascites, abdominal distension EXAMS: CPT CODE: [id number] US ABDOMEN COMPLETE [id number] REASON FOR EXAM: ascites, abdominal distension EXAM ORDER DATE: 06/02/2019 11:13 AM Ordering: Gloria Montes De Oca MD Attending:Kinza Ireland MD Location:[facility] PROCEDURE: - US ABDOMEN COMPLETE FINDINGS: [...] De Oca MD Technologist: CHRISTINE GUPTA RT(R),RDMS Trnsdb Date/Time: 06/02/2019 (8993) t.PRISCILAL Orig Print D/T: S: 06/02/2019 (4108) Probe: PAGE 1 Signed Report BASIC METABOLIC [id number] 03:38:00* Test Item Value Reference Range Interpretation [...] code = CA) 6.9 mg/dL 8.5-10.1 L [id number] 03:38:00* Test Item Value Reference Range Interpretation Comments PHOSPHORUS (test code = PHOS) 2.6 mg/dL 2.5-4.9 N [id number] 03:38:00* Test Item Value Reference Range Interpretation Comments MAGNESIUM (test code = MAG) 1.8 mg/dL 1.8-2.4 N CALCIUM [id number] 03:38:00* Test Item Value Reference Range Interpretation Comments CALCIUM IONIZED (test code = NORBERTO) 1.14 mmol/L 1.12-1.32 N PROTHROMBIN [id number] 03:37:00* Test Item Value Reference Range Interpretation [...] Mechanical prosthetic heart valves (2.5-3.5) THROMBOPLASTIN TIME [id number] 03:37:00* Test Item Value Reference Range Interpretation Comments THROMBOPLASTIN TIME PARTIAL (test code = PTT) 38.0 seconds 25.0-36. 5 H [id number] 03:37:00* Test Item Value Reference Range Interpretation Comments FIBRINOGEN (test code = FIB) 106 mg/dL 200-400 L FIBRIN SPLIT [id number] 03:37:00* Test Item Value Reference Range Interpretation Comments FIBRIN SPLIT PRODUCT (test code = FSP) mcg/mL <5 [id number] 03:37:00* Test Item Value Reference Range Interpretation Comments D-DIMER (test code = DDIMER) 4562.00 ng/mLFEU 0-500 HH Results called to [id number] by DYLON.JP1 06/02/19 0337Critical results verified and [...] code = AT3) % 75-135 BASIC METABOLIC [id number] 03:27:00* Test Item Value Reference Range Interpretation [...] code = CA) 6.9 mg/dL 8.5-10.1 L [id number] 03:27:00* Test Item Value Reference Range Interpretation Comments PHOSPHORUS (test code = PHOS) 2.6 mg/dL 2.5-4.9 N [id number] 03:27:00* Test Item Value Reference Range Interpretation Comments MAGNESIUM (test code = MAG) 1.8 mg/dL 1.8-2.4 N CALCIUM [id number] 03:27:00* Test Item Value Reference Range Interpretation Comments CALCIUM IONIZED (test code = NORBERTO) mmol/L 1.12-1.32 BASIC METABOLIC [id number] 03:25:00* Test Item Value Reference Range Interpretation [...] CALCIUM (test code = CA) mg/dL 8.5-10.1 [id number] 03:25:00* Test Item Value Reference Range Interpretation Comments PHOSPHORUS (test code = PHOS) mg/dL 2.5-4.9 [id number] 03:25:00* Test Item Value Reference Range Interpretation Comments MAGNESIUM (test code = MAG) mg/dL 1.8-2.4 CALCIUM [id number] 03:25:00* Test Item Value Reference Range Interpretation Comments CALCIUM IONIZED (test code = NORBERTO) mmol/L 1.12-1.32 CBC W/AUTO [id number] 03:22:00* Test Item Value Reference Range Interpretation [...] 0.04 K/mm3 0.0-0.1 N ALPHA FETOPROTEIN TUMOR [id number] 03:07:00* Test Item Value Reference Range Interpretation Comments ALPHA FETOPROTEIN TUMOR MARKER (test code = AFPTM) 10.3 ng/mL 0.0 -8.3 A [facility] Electrochemiluminescence Immunoassay(ECLIA)Values obtained with different assay methods or kits cannotbe used interchangeably. Results cannot be interpreted asabsolute evidence of the presence or absence of malignantdisease.This test is not interpretable in females.Performed At: [facility] [id number] Kyle L MD Ph:[phone] CBC W/AUTO [id number] 17:44:00* Test Item Value Reference Range Interpretation [...] = MDIFF) NO, ONLY SCAN NEEDED DIFFERENTIAL [id number] 17:44:00* Test Item Value Reference Range Interpretation Comments STAIN ACCEPTABILITY (test code = STN ACCEPTABLE) STAIN ACCEPTABLE POIKILOCYTOSIS (test code = POIK) 1+ ANISOCYTOSIS (test code = ANISO) 1+ MACROCYTOSIS (test code = MACR) 1+ PLATELET ESTIMATE (test code = PLTEST) DECREASED PLATELET MORPHOLOGY (test code = PLTMORPH) NORMAL LACTIC [id number] 15:53:00* Test Item Value Reference Range Interpretation Comments LACTIC ACID (test code = LACT) 2.0 mmol/L 0.4-1.9 H Results called to [id number] by ALEX 06/01/19 1553Critical results verified and read back by Nurse? Y [id number] 15:34:00* Test Item Value Reference Range Interpretation Comments AMMONIA (test code = AMM) 25 umol/L 11-32 N BASIC METABOLIC [id number] 15:34:00* Test Item Value Reference Range Interpretation [...] code = CA) 7.7 mg/dL 8.5-10.1 L [id number] 15:34:00* Test Item Value Reference Range Interpretation Comments PHOSPHORUS (test code = PHOS) 3.7 mg/dL 2.5-4.9 N [id number] 15:34:00* Test Item Value Reference Range Interpretation Comments MAGNESIUM (test code = MAG) 1.9 mg/dL 1.8-2.4 N CALCIUM [id number] 15:34:00* Test Item Value Reference Range Interpretation Comments CALCIUM IONIZED (test code = NORBERTO) 1.17 mmol/L 1.12-1.32 N BASIC METABOLIC [id number] 15:31:00* Test Item Value Reference Range Interpretation [...] CALCIUM (test code = CA) mg/dL 8.5-10.1 [id number] 15:31:00* Test Item Value Reference Range Interpretation Comments PHOSPHORUS (test code = PHOS) mg/dL 2.5-4.9 [id number] 15:31:00* Test Item Value Reference Range Interpretation Comments MAGNESIUM (test code = MAG) mg/dL 1.8-2.4 CALCIUM [id number] 15:31:00* Test Item Value Reference Range Interpretation Comments CALCIUM IONIZED (test code = NORBERTO) 1.17 mmol/L 1.12-1.32 N BASIC METABOLIC [id number] 15:22:00* Test Item Value Reference Range Interpretation [...] CALCIUM (test code = CA) mg/dL 8.5-10.1 [id number] 15:22:00* Test Item Value Reference Range Interpretation Comments PHOSPHORUS (test code = PHOS) mg/dL 2.5-4.9 [id number] 15:22:00* Test Item Value Reference Range Interpretation Comments MAGNESIUM (test code = MAG) mg/dL 1.8-2.4 CALCIUM [id number] 15:22:00* Test Item Value Reference Range Interpretation Comments CALCIUM IONIZED (test code = NORBERTO) 1.17 mmol/L 1.12-1.32 N CBC W/AUTO [id number] 15:18:00* Test Item Value Reference Range Interpretation [...] = MDIFF) NO, ONLY SCAN NEEDED DIFFERENTIAL [id number] 15:18:00* Test Item Value Reference Range Interpretation Comments STAIN ACCEPTABILITY (test code = STN ACCEPTABLE) CABOT RINGS (test code = CAB) MORPHOLOGY COMMENT (test code = MOC) PLATELET ESTIMATE (test code = PLTEST) PLATELET MORPHOLOGY (test code = PLTMORPH) CBC W/AUTO [id number] 15:18:00* Test Item Value Reference Range Interpretation [...] = MDIFF) NO, ONLY SCAN NEEDED DIFFERENTIAL [id number] 15:18:00* Test Item Value Reference Range Interpretation Comments STAIN ACCEPTABILITY (test code = STN ACCEPTABLE) MORPHOLOGY COMMENT (test code = MOC) PLATELET ESTIMATE (test code = PLTEST) PLATELET MORPHOLOGY (test code = PLTMORPH) CBC W/AUTO [id number] 15:17:00* Test Item Value Reference Range Interpretation [...] = MDIFF) NO, ONLY SCAN NEEDED DIFFERENTIAL [id number] 15:17:00* Test Item Value Reference Range Interpretation Comments STAIN ACCEPTABILITY (test code = STN ACCEPTABLE) CABOT RINGS (test code = CAB) MORPHOLOGY COMMENT (test code = MOC) PLATELET ESTIMATE (test code = PLTEST) PLATELET MORPHOLOGY (test code = PLTMORPH) CBC W/AUTO [id number] 15:17:00* Test Item Value Reference Range Interpretation [...] = MDIFF) NO, ONLY SCAN NEEDED DIFFERENTIAL [id number] 15:17:00* Test Item Value Reference Range Interpretation Comments STAIN ACCEPTABILITY (test code = STN ACCEPTABLE) CABOT RINGS (test code = CAB) MORPHOLOGY COMMENT (test code = MOC) PLATELET ESTIMATE (test code = PLTEST) PLATELET MORPHOLOGY (test code = PLTMORPH) PROTHROMBIN [id number] 08:21:00* Test Item Value Reference Range Interpretation [...] Mechanical prosthetic heart valves (2.5-3.5) THROMBOPLASTIN TIME [id number] 08:21:00* Test Item Value Reference Range Interpretation Comments THROMBOPLASTIN TIME PARTIAL (test code = PTT) 40.8 seconds 25.0-36. 5 H [id number] 08:21:00* Test Item Value Reference Range Interpretation Comments FIBRINOGEN (test code = FIB) 100 mg/dL 200-400 L FIBRIN SPLIT [id number] 08:21:00* Test Item Value Reference Range Interpretation Comments FIBRIN SPLIT PRODUCT (test code = FSP) mcg/mL <5 [id number] 08:21:00* Test Item Value Reference Range Interpretation Comments D-DIMER (test code = DDIMER) 5166.00 ng/mLFEU 0-500 Results called to [id number] results verified and read back by Nurse? [...] (test code = AT3) % 75-135 LACTIC [id number] 07:59:00* Test Item Value Reference Range Interpretation Comments LACTIC ACID (test code = LACT) 2.5 mmol/L 0.4-1.9 HH Results called to ALE IYQ2953sm V.LAB.OA 06/01/19 0758Critical results verified and read back by Nurse? Y LACTIC [id number] 06:14:00* Test Item Value Reference Range Interpretation Comments LACTIC ACID (test code = LACT) 2.3 mmol/L 0.4-1.9 HH Results called to [id number] by V.LAB.SADA 06/01/19 0614Critical results verified and read back by Nurse? Y BASIC METABOLIC [id number] 04:23:00* Test Item Value Reference Range Interpretation [...] mg/dL 8.5-10.1 L Re sults called to [id number] by V.LAB.SADA 06/01/19 0423Critical results verified and read back by Nurse? Y [id number] 04:23:00* Test Item Value Reference Range Interpretation Comments PHOSPHORUS (test code = PHOS) 1.3 mg/dL 2.5-4.9 L [id number] 04:23:00* Test Item Value Reference Range Interpretation Comments MAGNESIUM (test code = MAG) 1.8 mg/dL 1.8-2.4 N CALCIUM [id number] 04:23:00* Test Item Value Reference Range Interpretation Comments CALCIUM IONIZED (test code = NORBERTO) 1.10 mmol/L 1.12-1.32 L BASIC METABOLIC [id number] 03:48:00* Test Item Value Reference Range Interpretation [...] CALCIUM (test code = CA) mg/dL 8.5-10.1 [id number] 03:48:00* Test Item Value Reference Range Interpretation Comments PHOSPHORUS (test code = PHOS) mg/dL 2.5-4.9 [id number] 03:48:00* Test Item Value Reference Range Interpretation Comments MAGNESIUM (test code = MAG) mg/dL 1.8-2.4 CALCIUM [id number] 03:48:00* Test Item Value Reference Range Interpretation Comments CALCIUM IONIZED (test code = NORBERTO) 1.10 mmol/L 1.12-1.32 L CBC W/AUTO [id number] 03:00:00* Test Item Value Reference Range Interpretation [...] = NRBC#) 0.02 K/mm3 0.0-0.1 N LACTIC [id number] 00:06:00* Test Item Value Reference Range Interpretation Comments LACTIC ACID (test code = LACT) 2.1 mmol/L 0.4-1.9 HH Results called to [id number] by CHRIS 06/01/19 0006Critical results verified and read back by Nurse? y CBC W/AUTO [id number] 20:27:00* Test Item Value Reference Range Interpretation [...] = MDIFF) NO, ONLY SCAN NEEDED DIFFERENTIAL [id number] 20:27:00* Test Item Value Reference Range Interpretation Comments STAIN ACCEPTABILITY (test code = STN ACCEPTABLE) STAIN ACCEPTABLE POIKILOCYTOSIS (test code = POIK) 1+ ANISOCYTOSIS (test code = ANISO) 1+ CRENATED CELLS (test code = CREN) 1+ PLATELET ESTIMATE (test code = PLTEST) DECREASED PLATELET MORPHOLOGY (test code = PLTMORPH) Y LACTIC [id number] 18:08:00* Test Item Value Reference Range Interpretation Comments LACTIC ACID (test code = LACT) 2.5 mmol/L 0.4-1.9 HH Results called to [id number] by V.LAB.KP1 05/31/19 1808Critical results verified and read back by Nurse? Y CBC W/AUTO [id number] 17:55:00* Test Item Value Reference Range Interpretation [...] = MDIFF) NO, ONLY SCAN NEEDED DIFFERENTIAL [id number] 17:55:00* Test Item Value Reference Range Interpretation Comments STAIN ACCEPTABILITY (test code = STN ACCEPTABLE) CABOT RINGS (test code = CAB) MORPHOLOGY COMMENT (test code = MOC) PLATELET ESTIMATE (test code = PLTEST) PLATELET MORPHOLOGY (test code = PLTMORPH) CBC W/AUTO [id number] 17:55:00* Test Item Value Reference Range Interpretation [...] = MDIFF) NO, ONLY SCAN NEEDED DIFFERENTIAL [id number] 17:55:00* Test Item Value Reference Range Interpretation Comments STAIN ACCEPTABILITY (test code = STN ACCEPTABLE) CABOT RINGS (test code = CAB) MORPHOLOGY COMMENT (test code = MOC) PLATELET ESTIMATE (test code = PLTEST) PLATELET MORPHOLOGY (test code = PLTMORPH) CBC W/AUTO [id number] 17:55:00* Test Item Value Reference Range Interpretation [...] = MDIFF) NO, ONLY SCAN NEEDED DIFFERENTIAL [id number] 17:55:00* Test Item Value Reference Range Interpretation Comments STAIN ACCEPTABILITY (test code = STN ACCEPTABLE) MORPHOLOGY COMMENT (test code = MOC) PLATELET ESTIMATE (test code = PLTEST) PLATELET MORPHOLOGY (test code = PLTMORPH) CBC W/AUTO [id number] 17:55:00* Test Item Value Reference Range Interpretation [...] = MDIFF) NO, ONLY SCAN NEEDED DIFFERENTIAL [id number] 17:55:00* Test Item Value Reference Range Interpretation Comments STAIN ACCEPTABILITY (test code = STN ACCEPTABLE) CABOT RINGS (test code = CAB) MORPHOLOGY COMMENT (test code = MOC) PLATELET ESTIMATE (test code = PLTEST) PLATELET MORPHOLOGY (test code = PLTMORPH) [id number] 14:34:00* Test Item Value Reference Range Interpretation Comments AMMONIA (test code = AMM) 117 umol/L 11-32 H CBC W/AUTO [id number] 13:30:00* Test Item Value Reference Range Interpretation Comments WHITE BLOOD CELL (test code = WBC) 8.2 K/mm3 4.5-12.5 N RED BLOOD CELL (test code = RBC) 2.20 mill/mm3 3.7-5.2 L HEMOGLOBIN (test code = HGB) 6.8 gram/dL 11.5-15.5 L HEMATOCRIT (test code = HCT) 21.2 % 36.0-46.0 LL Results called to [id number] by TRISTON 05/31/19 1246Critical results verified and [...] = MDIFF) NO, ONLY SCAN NEEDED DIFFERENTIAL [id number] 13:30:00* Test Item Value Reference Range Interpretation Comments STAIN ACCEPTABILITY (test code = STN ACCEPTABLE) STAIN ACCEPTABLE POIKILOCYTOSIS (test code = POIK) 3+ ANISOCYTOSIS (test code = ANISO) 2+ MACROCYTOSIS (test code = MACR) 2+ MORPHOLOGY COMMENT (test code = MOC) TEST NOT PERFORMED PLATELET ESTIMATE (test code = PLTEST) DECREASED PLATELET MORPHOLOGY (test code = PLTMORPH) NORMAL LACTIC [id number] 12:58:00* Test Item Value Reference Range Interpretation Comments LACTIC ACID (test code = LACT) 3.0 mmol/L 0.4-1.9 HH Results called to [id number] by V.LAB.DDC 05/31/19 1257Critical results verified and read back by Nurse? y CBC W/AUTO [id number] 12:49:00* Test Item Value Reference Range Interpretation Comments WHITE BLOOD CELL (test code = WBC) 8.2 K/mm3 4.5-12.5 N RED BLOOD CELL (test code = RBC) 2.20 mill/mm3 3.7-5.2 L HEMOGLOBIN (test code = HGB) 6.8 gram/dL 11.5-15.5 L HEMATOCRIT (test code = HCT) 21.2 % 36.0-46.0 LL Results called to [id number] by V.LAB.LDB 05/31/19 1246Critical results verified and [...] = MDIFF) NO, ONLY SCAN NEEDED DIFFERENTIAL [id number] 12:49:00* Test Item Value Reference Range Interpretation Comments STAIN ACCEPTABILITY (test code = STN ACCEPTABLE) CABOT RINGS (test code = CAB) MORPHOLOGY COMMENT (test code = MOC) PLATELET ESTIMATE (test code = PLTEST) PLATELET MORPHOLOGY (test code = PLTMORPH) CBC W/AUTO [id number] 12:49:00* Test Item Value Reference Range Interpretation Comments WHITE BLOOD CELL (test code = WBC) 8.2 K/mm3 4.5-12.5 N RED BLOOD CELL (test code = RBC) 2.20 mill/mm3 3.7-5.2 L HEMOGLOBIN (test code = HGB) 6.8 gram/dL 11.5-15.5 L HEMATOCRIT (test code = HCT) 21.2 % 36.0-46.0 LL Results called to [id number] by TRISTON 05/31/19 1246Critical results verified and [...] = MDIFF) NO, ONLY SCAN NEEDED DIFFERENTIAL [id number] 12:49:00* Test Item Value Reference Range Interpretation Comments STAIN ACCEPTABILITY (test code = STN ACCEPTABLE) MORPHOLOGY COMMENT (test code = MOC) PLATELET ESTIMATE (test code = PLTEST) PLATELET MORPHOLOGY (test code = PLTMORPH) CBC W/AUTO [id number] 12:48:00* Test Item Value Reference Range Interpretation Comments WHITE BLOOD CELL (test code = WBC) 8.2 K/mm3 4.5-12.5 N RED BLOOD CELL (test code = RBC) 2.20 mill/mm3 3.7-5.2 L HEMOGLOBIN (test code = HGB) 6.8 gram/dL 11.5-15.5 L HEMATOCRIT (test code = HCT) 21.2 % 36.0-46.0 LL Results called to [place] [address] by V.LAB.LDB 05/31/19 1246Critical results verified and [...] = MDIFF) NO, ONLY SCAN NEEDED DIFFERENTIAL [id number] 12:48:00* Test Item Value Reference Range Interpretation Comments STAIN ACCEPTABILITY (test code = STN ACCEPTABLE) CABOT RINGS (test code = CAB) MORPHOLOGY COMMENT (test code = MOC) PLATELET ESTIMATE (test code = PLTEST) PLATELET MORPHOLOGY (test code = PLTMORPH) CBC W/AUTO [id number] 12:48:00* Test Item Value Reference Range Interpretation Comments WHITE BLOOD CELL (test code = WBC) 8.2 K/mm3 4.5-12.5 N RED BLOOD CELL (test code = RBC) 2.20 mill/mm3 3.7-5.2 L HEMOGLOBIN (test code = HGB) 6.8 gram/dL 11.5-15.5 L HEMATOCRIT (test code = HCT) 21.2 % 36.0-46.0 LL Results called to [id number] by V.LABCARSONB 05/31/19 1246Critical results verified and read back [...] = MDIFF) NO, ONLY SCAN NEEDED DIFFERENTIAL [id number] 12:48:00* Test Item Value Reference Range Interpretation Comments STAIN ACCEPTABILITY (test code = STN ACCEPTABLE) CABOT RINGS (test code = CAB) MORPHOLOGY COMMENT (test code = MOC) PLATELET ESTIMATE (test code = PLTEST) PLATELET MORPHOLOGY (test code = PLTMORPH) LACTIC [id number] 10:44:00* Test Item Value Reference Range Interpretation Comments LACTIC ACID (test code = LACT) 4.6 mmol/L 0.4-1.9 HH Results called to [id number] by V.LAB.GP 05/31/19 1044Critical results verified and read back by Nurse? Y LACTIC [id number] 07:44:00* Test Item Value Reference Range Interpretation Comments LACTIC ACID (test code = LACT) 4.4 mmol/L 0.4-1.9 HH Results called to [id number] by V.LAB.GP 05/31/19 0744Critical results verified and read back by Nurse? Y LACTIC [id number] 05:15:00* Test Item Value Reference Range Interpretation Comments LACTIC ACID (test code = LACT) 6.5 mmol/L 0.4-1.9 HH Results called to [id number] by V.LAB.SADA 05/31/19 0515Critical results verified and read back by Nurse? Y COMPREHENSIVE METABOLIC [id number] 05:15:00* Test Item Value Reference Range Interpretation [...] reference range due to change in reagent. [id number] 05:15:00* Test Item Value Reference Range Interpretation Comments PHOSPHORUS (test code = PHOS) 2.8 mg/dL 2.5-4.9 N [id number] 05:15:00* Test Item Value Reference Range Interpretation Comments MAGNESIUM (test code = MAG) 1.5 mg/dL 1.8-2.4 L CALCIUM [id number] 05:15:00* Test Item Value Reference Range Interpretation Comments CALCIUM IONIZED (test code = NORBERTO) 1.11 mmol/L 1.12-1.32 L [id number] 05:11:00* Test Item Value Reference Range Interpretation Comments TROPONIN-I (test code = TROPI) <0.015 ng/mL 0-0.045 N [id number] 05:02:00* Test Item Value Reference Range Interpretation Comments AMMONIA (test code = AMM) 102 umol/L 11-32 H PROTHROMBIN [id number] 04:56:00* Test Item Value Reference Range Interpretation [...] (2.5-3.5) IS PATIENT ON ANTICOAGULANTS? NTHROMBOPLASTIN TIME [id number] 04:56:00* Test Item Value Reference Range Interpretation Comments THROMBOPLASTIN TIME PARTIAL (test code = PTT) 40.9 seconds 25.0-36. 5 H IS PATIENT ON ANTICOAGULANTS? NCOMPREHENSIVE METABOLIC [id number] 04:56:00 * Test Item Value Reference Range [...] TOTAL (test code = ALKP) IUnit/L 45-117 [id number] 04:56:00* Test Item Value Reference Range Interpretation Comments PHOSPHORUS (test code = PHOS) mg/dL 2.5-4.9 [id number] 04:56:00* Test Item Value Reference Range Interpretation Comments MAGNESIUM (test code = MAG) mg/dL 1.8-2.4 CALCIUM [id number] 04:56:00* Test Item Value Reference Range Interpretation Comments CALCIUM IONIZED (test code = NORBERTO) 1.11 mmol/L 1.12-1.32 L COMPREHENSIVE METABOLIC [id number] 04:52:00* Test Item Value Reference Range Interpretation [...] TOTAL (test code = ALKP) IUnit/L 45-117 [id number] 04:52:00* Test Item Value Reference Range Interpretation Comments PHOSPHORUS (test code = PHOS) mg/dL 2.5-4.9 [id number] 04:52:00* Test Item Value Reference Range Interpretation Comments MAGNESIUM (test code = MAG) mg/dL 1.8-2.4 CALCIUM [id number] 04:52:00* Test Item Value Reference Range Interpretation Comments CALCIUM IONIZED (test code = NORBERTO) 1.11 mmol/L 1.12-1.32 L CBC W/AUTO [id number] 04:50:00* Test Item Value Reference Range Interpretation [...] = NRBC#) 0.00 K/mm3 0.0-0.1 N LACTIC [id number] 01:41:00* Test Item Value Reference Range Interpretation Comments LACTIC ACID (test code = LACT) 9.4 mmol/L 0.4-1.9 HH Results called to [id number] by V.LAB.JP1 05/31/19 0141Critical results verified and read back by Nurse? YES CBC W/AUTO [id number] 23:34:00* Test Item Value Reference Range Interpretation Comments WHITE BLOOD CELL (test code = WBC) 10.4 K/mm3 4.5-12.5 N RED BLOOD CELL (test code = RBC) 1.95 mill/mm3 3.7-5.2 L HEMOGLOBIN (test code = HGB) 6.2 gram/dL 11.5-15.5 L HEMATOCRIT (test code = HCT) 19.3 % 36.0-46.0 LL Results called to [id number] by V.LAB.LL 05/30/19 2125Critical results verified and [...] = MDIFF) NO, ONLY SCAN NEEDED DIFFERENTIAL [id number] 23:34:00* Test Item Value Reference Range Interpretation Comments STAIN ACCEPTABILITY (test code = STN ACCEPTABLE) STAIN ACCEPTABLE HYPOCHROMIA (test code = HYPO) 1+ ANISOCYTOSIS (test code = ANISO) 1+ PLATELET ESTIMATE (test code = PLTEST) DECREASED PLATELET MORPHOLOGY (test code = PLTMORPH) NORMAL [id number] 21:34:00* Test Item Value Reference Range Interpretation Comments TROPONIN-I (test code = TROPI) <0.015 ng/mL 0-0.045 N LACTIC [id number] 21:28:00* Test Item Value Reference Range Interpretation Comments LACTIC ACID (test code = LACT) 6.8 mmol/L 0.4-1.9 HH Results called to [id number] by Wazoku.LAB.SPR 05/30/197Critical results verified and read back by Nurse? Y CBC W/AUTO [id number] 21:26:00* Test Item Value Reference Range Interpretation Comments WHITE BLOOD CELL (test code = WBC) 10.4 K/mm3 4.5-12.5 N RED BLOOD CELL (test code = RBC) 1.95 mill/mm3 3.7-5.2 L HEMOGLOBIN (test code = HGB) 6.2 gram/dL 11.5-15.5 L HEMATOCRIT (test code = HCT) 19.3 % 36.0-46.0 LL Results called to [id number] by AniboomLAB.LL 05/30/195Critical results verified and read back by [...] = MDIFF) NO, ONLY SCAN NEEDED DIFFERENTIAL [id number] 21:26:00* Test Item Value Reference Range Interpretation Comments STAIN ACCEPTABILITY (test code = STN ACCEPTABLE) CABOT RINGS (test code = CAB) MORPHOLOGY COMMENT (test code = MOC) PLATELET ESTIMATE (test code = PLTEST) PLATELET MORPHOLOGY (test code = PLTMORPH) CBC W/AUTO [id number] 21:26:00* Test Item Value Reference Range Interpretation Comments WHITE BLOOD CELL (test code = WBC) 10.4 K/mm3 4.5-12.5 N RED BLOOD CELL (test code = RBC) 1.95 mill/mm3 3.7-5.2 L HEMOGLOBIN (test code = HGB) 6.2 gram/dL 11.5-15.5 L HEMATOCRIT (test code = HCT) 19.3 % 36.0-46.0 LL Results called to [id number] by V.LAB. 05/30/19 2125Critical results verified and [...] = MDIFF) NO, ONLY SCAN NEEDED DIFFERENTIAL [id number] 21:26:00* Test Item Value Reference Range Interpretation Comments STAIN ACCEPTABILITY (test code = STN ACCEPTABLE) MORPHOLOGY COMMENT (test code = MOC) PLATELET ESTIMATE (test code = PLTEST) PLATELET MORPHOLOGY (test code = PLTMORPH) CBC W/AUTO [id number] 21:25:00* Test Item Value Reference Range Interpretation Comments WHITE BLOOD CELL (test code = WBC) 10.4 K/mm3 4.5-12.5 N RED BLOOD CELL (test code = RBC) 1.95 mill/mm3 3.7-5.2 L HEMOGLOBIN (test code = HGB) 6.2 gram/dL 11.5-15.5 L HEMATOCRIT (test code = HCT) 19.3 % 36.0-46.0 LL Results called to [id number] by YINA 05/30/19 2125Critical results verified and read back [...] = MDIFF) NO, ONLY SCAN NEEDED DIFFERENTIAL [id number] 21:25:00* Test Item Value Reference Range Interpretation Comments STAIN ACCEPTABILITY (test code = STN ACCEPTABLE) CABOT RINGS (test code = CAB) MORPHOLOGY COMMENT (test code = MOC) PLATELET ESTIMATE (test code = PLTEST) PLATELET MORPHOLOGY (test code = PLTMORPH) CBC W/AUTO [id number] 21:25:00* Test Item Value Reference Range Interpretation Comments WHITE BLOOD CELL (test code = WBC) 10.4 K/mm3 4.5-12.5 N RED BLOOD CELL (test code = RBC) 1.95 mill/mm3 3.7-5.2 L HEMOGLOBIN (test code = HGB) 6.2 gram/dL 11.5-15.5 L HEMATOCRIT (test code = HCT) 19.3 % 36.0-46.0 LL Results called to [id number] by AniboomLAB.LL 05/30/19 2125Critical results verified and read back [...] = MDIFF) NO, ONLY SCAN NEEDED DIFFERENTIAL [id number] 21:25:00* Test Item Value Reference Range Interpretation Comments STAIN ACCEPTABILITY (test code = STN ACCEPTABLE) CABOT RINGS (test code = CAB) MORPHOLOGY COMMENT (test code = MOC) PLATELET ESTIMATE (test code = PLTEST) PLATELET MORPHOLOGY (test code = PLTMORPH) [id number] 21:23:00* Test Item Value Reference Range Interpretation Comments AMMONIA (test code = AMM) 98 umol/L 11-32 H CBC W/AUTO [id number] 12:27:00* Test Item Value Reference Range Interpretation [...] = MDIFF) NO, ONLY SCAN NEEDED DIFFERENTIAL [id number] 12:27:00* Test Item Value Reference Range Interpretation Comments STAIN ACCEPTABILITY (test code = STN ACCEPTABLE) STAIN ACCEPTABLE PLATELET ESTIMATE (test code = PLTEST) DECREASED PLATELET MORPHOLOGY (test code = PLTMORPH) NORMAL LACTIC [id number] 11:28:00* Test Item Value Reference Range Interpretation Comments LACTIC ACID (test code = LACT) 6.6 mmol/L 0.4-1.9 HH Results called to [id number] by TRISTON 05/30/19 1126Critical results verified and read back by Nurse? Y CBC W/AUTO [id number] 10:59:00* Test Item Value Reference Range Interpretation [...] = MDIFF) NO, ONLY SCAN NEEDED DIFFERENTIAL [id number] 10:59:00* Test Item Value Reference Range Interpretation Comments STAIN ACCEPTABILITY (test code = STN ACCEPTABLE) CABOT RINGS (test code = CAB) MORPHOLOGY COMMENT (test code = MOC) PLATELET ESTIMATE (test code = PLTEST) PLATELET MORPHOLOGY (test code = PLTMORPH) CBC W/AUTO [id number] 10:59:00* Test Item Value Reference Range Interpretation [...] = MDIFF) NO, ONLY SCAN NEEDED DIFFERENTIAL [id number] 10:59:00* Test Item Value Reference Range Interpretation Comments STAIN ACCEPTABILITY (test code = STN ACCEPTABLE) CABOT RINGS (test code = CAB) MORPHOLOGY COMMENT (test code = MOC) PLATELET ESTIMATE (test code = PLTEST) PLATELET MORPHOLOGY (test code = PLTMORPH) CBC W/AUTO [id number] 10:59:00* Test Item Value Reference Range Interpretation [...] = MDIFF) NO, ONLY SCAN NEEDED DIFFERENTIAL [id number] 10:59:00* Test Item Value Reference Range Interpretation Comments STAIN ACCEPTABILITY (test code = STN ACCEPTABLE) MORPHOLOGY COMMENT (test code = MOC) PLATELET ESTIMATE (test code = PLTEST) PLATELET MORPHOLOGY (test code = PLTMORPH) CBC W/AUTO [id number] 10:59:00* Test Item Value Reference Range Interpretation [...] = MDIFF) NO, ONLY SCAN NEEDED DIFFERENTIAL [id number] 10:59:00* Test Item Value Reference Range Interpretation Comments STAIN ACCEPTABILITY (test code = STN ACCEPTABLE) CABOT RINGS (test code = CAB) MORPHOLOGY COMMENT (test code = MOC) PLATELET ESTIMATE (test code = PLTEST) PLATELET MORPHOLOGY (test code = PLTMORPH) LACTIC [id number] 10:11:00* Test Item Value Reference Range Interpretation Comments LACTIC ACID (test code = LACT) 6.3 mmol/L 0.4-1.9 HH Results called to [id number] by ANTELMO 05/30/19 1010Critical results verified and read back by Nurse? Y URINALYSIS [id number] 07:05:00* Test Item Value Reference Range Interpretation Comments UA COLOR (test code = COLU) [place] YELLOW UA APPEARANCE (test code = APPU) [...] Urine Source? Clean CatchDRUGS OF ABUSE SCREEN [id number] 07:05:00* Test Item Value Reference Range Interpretation [...] NEGATIVE <300 ng/mL Urine Source? Clean CatchURINALYSIS [id number] 06:44:00* Test Item Value Reference Range Interpretation Comments UA COLOR (test code = COLU) [place] YELLOW UA APPEARANCE (test code = APPU) [...] Urine Source? Clean CatchDRUGS OF ABUSE SCREEN [id number] 06:44:00* Test Item Value Reference Range Interpretation [...] Urine Source? Clean Catch- CT ABD PELVIS W/[id number] 06:42:00 Name: SUZI SCANLON [facility] : 1955 Age/S: 64 / F [address] Unit #: [id number] Loc: [place] [address] Phys: Naseem Childs DO Acct: [id number] Dis Date: Status: ADM IN PHONE #: Exam Date: 05/30/2019627 FAX #: [phone] Reason: GI Bleed EXAMS: CPT CODE: [id number] CT ABD PELVIS W/CONT 08068 CT ABDOMEN AND PELVIS ( with intravenous contrast ) Location Code: B2 CLINIC AL INDICATIONS: Abdominal pain. GI bleed TECHNIQUE: [...] 1 Signed Report (CONTINUED) Name: SUZI SCANLON [facility] : 1955 Age/S: 64 / F [address] Unit #: [id number] Loc: [place] [address] Phys: Naseem Childs DO Acct: [id number] Dis Date: Status: ADM IN PHONE #: [phone] Exam Date: 05/30/2019627 FAX #: [phone] Reason: GI Bleed EXAMS: CPT CODE: [id number] CT ABD PELVIS W/CONT 66309 <Continued> at 0642 Reported and signed by: Abram Carr M.D. CC: Naseem Childs DO Technologist:John Ang RT(R)(CT) CTDI: DLP: Trnscb Date/Time: 05/30/2019 (641) SinaiRK5 Orig Print D/T: S: 05/30/2019 (0646) PAGE 2 Signed Report URINALYSIS [id number] 06:36:00* Test Item Value Reference Range Interpretation Comments UA COLOR (test code = COLU) [place] YELLOW UA APPEARANCE (test code = APPU) [...] Urine Source? Clean CatchDRUGS OF ABUSE SCREEN [id number] 06:36:00* Test Item Value Reference Range Interpretation [...] = [place]) <300 ng/mL Urine Source? Clean [id number] 06:32:00* Test Item Value Reference Range Interpretation Comments ACETAMINOPHEN (test code = ACET) < 10 mcg/mL 10-30 L A RANGE OF 10-30 mcg/mL IS A THERAPEUTIC RANGE. TOXIC CONCENTRATIONS: >150 mcg/mL AT 4 HOURS AFTER INGESTION >= 50 mcg/mL AT 12 HOURS AFTER INGESTION [id number] 06:32:00* Test Item Value Reference Range Interpretation Comments SALICYLATE (test code = SOCO) < 2.0 mg/dL 2.8-20.0 L [id number] 06:32:00* Test Item Value Reference Range Interpretation [...] TO THE PATIENT. - CT HEAD/BRAIN W/O [id number] 06:15:00 Name: SUZI SCANLON [facility] : 1955 Age/S: 64 / F [address] [facility] Unit #: [id number] Loc: [place] [address] Phys: Naseem Childs DO Acct: [id number] Dis Date: Status: REG ER PHONE #: [phone] Exam Date: 05/30/2019 0607 FAX #: [phone] Reason: Altered Mental Status EXAMS: CPT CODE: [id number] CT HEAD/BRAIN W/O CONT 59851 Location Code: B2 HISTORY: Transient alteration of [...] 05/30/2019 (617) PAGE 1 Signed Report LACTIC [id number] 06:03:00* Test Item Value Reference Range Interpretation Comments LACTIC ACID (test code = LACT) 7.6 mmol/L 0.4-1.9 HH Results called to [id number] by VAdalbertoLABLONNY 05/30/19 0603Critical results verified and read back by Nurse? Y BASIC METABOLIC [id number] 06:02:00* Test Item Value Reference Range Interpretation [...] CA) 7.4 mg/dL 8.5-10.1 L HEPATIC FUNCTION [id number] 06:02:00* Test Item Value Reference Range Interpretation [...] reference range due to change in reagent. [id number] 06:02:00* Test Item Value Reference Range Interpretation Comments LIPASE (test code = LIP) 26 U/L 73.0-393.0 L [id number] 06:02:00* Test Item Value Reference Range Interpretation Comments TROPONIN-I (test code = TROPI) <0.015 ng/mL 0-0.045 N [id number] 06:02:00* Test Item Value Reference Range Interpretation Comments ACETAMINOPHEN (test code = ACET) < 10 mcg/mL 10-30 L A RANGE OF 10-30 mcg/mL IS A THERAPEUTIC RANGE. TOXIC CONCENTRATIONS: >150 mcg/mL AT 4 HOURS AFTER INGESTION >= 50 mcg/mL AT 12 HOURS AFTER INGESTION [id number] 06:02:00* Test Item Value Reference Range Interpretation Comments SALICYLATE (test code = SOCO) mg/dL 2.8-20.0 [id number] 06:02:00* Test Item Value Reference Range Interpretation Comments ALCOHOL (test code = ALC) < 3 mg/dL 0.0-3.0 N -- INTERPRETIVE DATA NOTE: POSITIVE SCREENING RESULTS SHOULD BE CONSIDERED PRESUMPTIVE.WHEN COLLECTED FOR MEDICAL PURPOSES ONLY. SPECIMEN WILL NOTBE COLLECTED BY CHAIN OF CUSTODY.IF A CONFIRMATION OF POSITIVE RESULTS IS DESIRED, ACONFIRMATION TEST MUST BE REQUESTED BY THE PHYSICIAN AT ANADDITIONAL CHARGE TO THE PATIENT. [id number] 05:57:00* Test Item Value Reference Range Interpretation Comments AMMONIA (test code = AMM) 137 umol/L 11-32 H BASIC METABOLIC [id number] 05:52:00* Test Item Value Reference Range Interpretation [...] code = CA) mg/dL 8.5-10.1 HEPATIC FUNCTION [id number] 05:52:00* Test Item Value Reference Range Interpretation [...] TOTAL (test code = ALKP) IUnit/L 45-117 [id number] 05:52:00* Test Item Value Reference Range Interpretation Comments LIPASE (test code = LIP) U/L 73.0-393.0 [id number] 05:52:00* Test Item Value Reference Range Interpretation Comments TROPONIN-I (test code = TROPI) ng/mL 0-0.045 [id number] 05:51:00* Test Item Value Reference Range Interpretation Comments GLUBED (test code = GLUBED) 139 mg/dL 74-106 H Performed by certified drilling plant operator at [facility] PROTHROMBIN [id number] 05:41:00* Test Item Value Reference Range Interpretation [...] (2.5-3.5) IS PATIENT ON ANTICOAGULANTS? NTHROMBOPLASTIN TIME [id number] 05:41:00* Test Item Value Reference Range Interpretation Comments THROMBOPLASTIN TIME PARTIAL (test code = PTT) 32.4 seconds 25.0-36. 5 N IS PATIENT ON ANTICOAGULANTS? [facility] W/O [id number] 05:37:00* Test Item Value Reference Range Interpretation [...] fL 6.7-11.0 H - XR CHEST 1 [id number] 05:34:00 FAX: Naseem Childs DO [place]: B St: REG Name: SUZI ENAMORADO [facility] : [birth year] Age/S: 64/F [address] [facility] Unit #: [id number] Loc: [place] [address] Phys: Naseem Childs DO Acct: [id number] Dis Date: Status: REG ER PHONE #: [phone] Exam Date: 05/30/2019520 FAX #: [phone] Reason: Abdominal Pain EXAMS: CPT CODE: [id number] XR CHEST 1 V 67535 AFTER HOURS SERVICE ON: 05/30/2019 5:34 AM [...] RT(R); KACIE HOBBS RT(R) Trnscrd Date/Time/By: 05/30/2019 (0580) : By: SinaiMA50 Orig Print D/T: S: 05/30/2019 (0556) PAGE 1 Signed Report VENOUS BLOOD GAS [...] METHGB) 0.0 % 0.0-1.50 N ABD PARACENTESIS W/[id number] 16:30:18IMPRESSION: Successful ultrasound guided paracentesis. Dictated By: Denisse Montes De Oca DO, 04/02/2019 12:06 PM I have reviewed the study and agree with the findings in this report. Signed By: Raymond Diggs DO, 04/03/2019 4:30 PM Interface, Rad/Mammog In - 04/03/2019 4:35 PM CSTProcedure: Ultrasound Guided Paracentesis wire brush operator: Dr. Denisse Montes De Oca DOAssistants: NoneStaff: Dr. Raymond Diggs DOPreoperative diagnosis: Abdominal ascites Post operative diagnosis: Abdominal ascites Conscious Sedation: None. Patient was continuously monitored by thededformerly named [facility] IR nurse. Fluoro time: None. Contrast used: None. EBL: Less than 5cc Specimen Obtained: 2.3 L of clear yellow ascitic fluid Blood administered: None. Implants: None. Condition at procedure completion:GoodDisposition:Discharged homeCPT procedure code: 60137 DISCUSSION: A timeout was performed. The patients [...] B y: Raymond Diggs DO, 04/03/2019 4:30 PMLawrence LobCelsense GLUCOSE POC docked [id number] 10:46:00* Test Item Value Reference Range Interpretation Comments Glucose POC (test code = 03665987) 167 mg/dL 74-106 H Lab Interpretation (test code = 08338-2) [facility]normal [facility] [id number] 14:57:00* Test Item Value Reference Range Interpretation Comments Body Fluid Culture (test code = 611-4) No growth 3 days Gram Stain (test code = 664-3) No organisms seen [facility]/S PELVIS LTD [id number] 14:54:02IMPRESSION: Fluid containing left inguinal hernia with the presence of fat onValsalva maneuver. No evidence of bowel containing hernia. Signed By: Farhad Hughes, 02/26/2019 2:54 PM Interface, Rad/Mammog In - 02/26/2019 2:59 PM CSTUltrasound pelvis: Transabdominal CPT code: 98463Pzfmala: left groin swelling evaluation for hernia, history [...] containing hernia.Signed By: Farhad Hughes, 02/26/2019 2:54 PMMary [facility]/PEL VASCULAR STUDY, COMPLETE 2019-02-26 14:54:02IMPRESSION: Fluid containing left inguinal hernia with the presence of fat onValsalva maneuver. No evidence of bowel containing hernia. Signed By: Farhad Hughes, 02/26/2019 2:54 PM Interface, Rad/Mammog In - 02/26/2019 2:59 PM CSTUltrasound pelvis: Transabdominal CPT code: 39661Grhmrhw: left groin swelling evaluation for hernia, history [...] containing hernia.Signed By: Farhad Hughes, 02/26/2019 2:54 [facility] [id number] 10:15:51IMPRESSION: 1. Cirrhosis, splenomegaly, and portal hypertension [...] this report.Signed By: Farhad Hughes, 02/24/2019 10:15 [facility] Comprehensive Metabolic [id number] 06:06:00* Test Item Value Reference Range Interpretation Comments Sodium (test code = 2951-2) 139 mmol/L 136-145 Potassium (test code = 2823-3) 3.1 mmol/L 3.5-5.1 L Chloride (test code = 2075-0) 104 mmol/L 98-107 CO2 (test code = 48413642) 30 mmol/L 21-31 Glucose (test code = 88577623) 208 mg/dL 70-110 H Calcium (test code = 26830686) 7.4 mg/dL 8.6-10.3 L Urea Nitrogen (test code = 04098423) 9.0 mg/dL 7-25 Creatinine (test code = 88230844) 0.6 mg/dL 0.6-1.2 Alkaline Phosphatase (test code = 96873952) 108 U/L 34-104 H ALT (test code = 64740638) 16 U/L 7-52 AST (test code = 94992153) 30 U/L 13-39 Total Protein (test code = 2885-2) 5.6 g/dL 6-8.3 L GFR, Estimated (test code = 72701043) >90 >=90 mL/min/1.73 m2 Albumin (test code = 58324-0) 2.0 g/dL 3.7-5.3 L Anion Gap (test code = 86167424) 5 mmol/L 5-16 Lab Interpretation (test code = 80476-7) Abnormal [facility] (without differential)2019-02-24 05:37:00* Test Item Value [...] 32.7 g/dL 32-36 RDW (test code = 41337-1) 53.3 fL 36.4-46.3 H Platelet (test code = 777-3) 79 K/uL 150-400 L Mean Platelet Volume (test code = 47558-0) 12.8 fL 9.4-12.4 H Percent NRBC (test code = 17718010) 0.0 % Lab Interpretation (test code = 93580-4) Abnormal [facility] HospitalLactic Ujxg3621-37-03 15:51:00* Test Item Value Reference Range Interpretation Comments Lactic Acid (test code = 91242778) 1.7 mmol/L 0.5-2.2 Lab Interpretation (test code = 28795-5) Normal [facility] HospitalCB/Ihbd1138-43-18 08:13:00* Test Item Value Reference Range Interpretation [...] 32.2 g/dL 32-36 RDW (test code = 10534-7) 52.4 fL 36.4-46.3 H Platelet (test code = 777-3) 84 K/uL 150-400 L Mean Platelet Volume (test code = 51918-4) 12.5 fL 9.4-12.4 H Percent NRBC (test code = 67238199) 0.0 % Neutrophil (test code = 770-8) 72.7 % 34-70 H Lymphs (test code = 736-9) 15.7 % 20-50 L Monocytes (test code = 5905-5) 9.5 % 5-12 Eos (test code = 713-8) 1.3 % 0.7-5 Basos (test code = 706-2) 0.4 % 0.1-1.2 Immature Granulocytes (test code = 82954917) 0.4 % 0-0.5 Neutrophils (Absolute) (test code = 01390085) 3.27 K/uL 1.56-6.1 3 Lymphs (Absolute) (test code = 94781947) 0.71 K/uL 1.18-3.74 L Monocytes(Absolute) (test code = 35457205) 0.43 K/uL 0.24-0.36 H Eos (Absolute) (test code = 91976166) 0.06 K/uL 0.04-0.36 Baso (Absolute) (test code = 78341838) 0.02 K/uL 0.01-0.08 Immature Grans (Abs) (test code = 19055541) 0.02 K/uL 0-0.03 Absolute NRBC (test code = 70039898) 0.00 K/uL Lab Interpretation (test code = 68749-0) Abnormal [facility] HospitalDmisnqRpvwtlxmb7619-16-86 08:00:00* Test Item Value Reference Range Interpretation Comments Magnesium (test code = 49576429) 1.6 mg/dL 1.9-2.7 L Lab Interpretation (test code = 78916-4) Abnormal [facility] HospitalPT/TZN0985-20-11 07:41:00* Test Item Value Reference Range Interpretation Comments PT (test code = 5902-2) 19.8 11.8- 15.0 Seconds H INR (test code = 97935535) 1.7 Refer to INR therapeutic ra nges 2.0 - 3.0 for moderate intensity anticoagulation2.5 - 3.5 for high intensity anticoagulation Lab Interpretation (test code = 49394-3) Abnormal [facility] HospitalGduxkaAEM8963-84-10 07:41:00* Test Item Value Reference Range Interpretation Comments PTT (test code = 49331374) 41.1 23.6- 36.4 Seconds H The recommended therapuetic range is an APTT 61-103 seconds which corresponds to 0.3-0.7 anti Xa u/ml. Lab Interpretation (test code = 34231-0) Abnormal [place] [address] LEAD [id number] 06:37:5612 LEAD EKG FOR [facility] Test Date: 2276-59-19Aqo Name: SUZI SCANLON Department: 5520Patient ID: [id number] Room: 6OO34Nzepbr: Tosser: [id number]: 1955 Requested By: GRISEL Brown Number: [id number] Reading MD: Pasha Grover M.D. MeasurementsIntervals [place] Rate: 87 P: MD: 0 QRS: 9QRSD: 78 T: 16QT: 420 QTc: 507 Interpretive StatementsLIKELY ECTOPIC ATRIAL RHYTHMElectronically Signed On 02-23-2019 6:37:53 DRILLING FIELD PROFESSIONAL by Pasha Grover M.D.[facility] CenterDIFFERENTIAL, CELL [id number] 04:46:00* Test Item Value Reference Range Interpretation Comments Neutrophil (test code = 16791473) 10 % Lymphocyte (test code = 02474651) 15 % Monocyte (test code = 59436590) 15 % Macrophage (test code = 01243801) 53 % Mesothelial, Cell (test code = 90960615) 6 % Plasma Cell (test code = 51650974) 1 % Cells Counted (test code = 01318921) 100 [facility]S HospitalDifferential, Pomqnx8602-78-51 04:41:00* Test Item Value Reference Range Interpretation Comments Neutrophil (test code = 11488108) 83.0 % 34-70 H Lymphs (test code = 89839896) 8.0 % 20-50 L Monocytes (test code = 27598719) 7.0 % 5-12 Eos (test code = 15569809) 0.0 % 0.7-5 L Basos (test code = 68387099) 1.0 % 0.1-1.2 Metamyel (test code = 44521586) 1.0 % <=0.0 H Neutrophils (Absolute) (test code = 44885671) 4.32 K/uL 1.56-6.1 3 Lymphs (Absolute) (test code = 70669877) 0.42 K/uL 1.18-3.74 L Monocytes(Absolute) (test code = 72308705) 0.36 K/uL 0.24-0.36 Eos (Absolute) (test code = 76385585) 0.00 K/uL 0.04-0.36 L Baso (Absolute) (test code = 86962884) 0.05 K/uL 0.01-0.08 Ovalocyte (test code = 79359662) 2+ None seen A Schistocyte (test code = 94112995) 1+ None seen A Tear Drop Cell (test code = 49185977) 2+ None seen A Cells Counted (test code = 69260449) Lab Interpretation (test code = 17193-1) Abnormal [facility] HealthCell Count, Yjzlr2769-91-96 02:51:00* Test Item Value Reference Range Interpretation Comments Volume (test code = 99727101) 3 mL Appearance (test code = 23113394) Clear Clear Calculated RBC-Body Fluid (test code = 17227058) 2325 /uL None seen WBC Body Fluid (test code = 73929632) 100 /uL Clots? (test code = 88403997) No [facility] HealthAlbumin, Wpnca8037-57-96 01:38:00* Test Item Value Reference Range Interpretation Comments Albumin, Fld (test code = 12835005) <1.5 g/dL Reference interval study is not possible due to unavailable normal samples and the limited availability of published data. The reference range has not been established for body fluids. The test result should be integrated into the clinical context for interpretation. HUA (test code = HUA) Disclaimer:The performance c haracteristic of quantitative testing of body fluid using Adam YX5546 has been reviewed and the performance of the method is considered acceptable for patient testing. This test was developed and its performance characteristic determined by [facility]. It has not been cleared or approved by the [place] Food and Drug Administration. The FDA has determined that such clearance of approval is not necessary. This test is used for clinical purposes. It should not be regarded as investigational or research. [place] TrailMapsGlucose, Blh6886-77-62 01:38:00* Test Item Value Reference Range Interpretation Comments Glucose, Fld (test code = 88867527) 267 mg/dL Reference interval study is not possible due to unavailable normal samples and the limited availability of published data. The reference range has not been established for body fluids. The test result should be integrated into the clinical context for interpretation. HUA (test code = HUA) Disclaimer:The performance c haracteristic of quantitative testing of body fluid using Adam ZD1932 has been reviewed and the performance of the method is considered acceptable for patient testing. This test was developed and its performance characteristic determined by [facility]. It has not been cleared or approved by the [place].S. Food and Drug Administration. The FDA has determined that such clearance of approval is not necessary. This test is used for clinical purposes. It should not be regarded as investigational or research. [facility], [id number] 01:38:00* Test Item Value Reference Range Interpretation Comments LDH, Fld (test code = 54271163) 38 U/L Reference interval study is not possible due to unavailable normal samples and the limited availability of published data. The reference range has not been established for body fluids. The test result should be integrated into the clinical context for interpretation. HUA (test code = HUA) Disclaimer:The performance c haracteristic of quantitative testing of body fluid using Adam [id number] has been reviewed and the performance of the method is considered acceptable for patient testing. This test was developed and its performance characteristic determined by [facility]. It has not been cleared or approved by the [place] Food and Drug Administration. The FDA has determined that such clearance of approval is not necessary. This test is used for clinical purposes. It should not be regarded as investigational or research. [facility] Protein, [id number] 01:38:00* Test Item Value Reference Range Interpretation Comments Protein, Fluid (test code = 2881-1) <3.0 g/dL Reference interval study is not possible due to unavailable normal samples and the limited availability of published data. The reference range has not been established for body fluids. The test result should be integrated into the clinical context for interpretation. [facility] HospitalLiver [id number] 00:09:00* Test Item Value Reference Range Interpretation Comments Bilirubin, Total (test code = 2885-2) 2.1 mg/dL 0.2-1.2 H Alkaline Phosphatase (test code = 29414131) 160 U/L 34-104 H AST (test code = 50676776) 41 U/L 13-39 H Direct Bilirubin (test code = 1968-7) 0.7 mg/dL 0-0.2 H ALT (test code = 87273584) 23 U/L 7-52 Albumin (test code = 39750-7) 2.3 g/dL 3.7-5.3 L Lab Interpretation (test code = 10502-1) Abnormal [id number] 00:06:00* Test Item Value Reference Range Interpretation Comments Ammonia (test code = 29562713) 82.0 umol/L 16-53 H Lab Interpretation (test code = 73052-5) Abnormal [facility] TROPONIN I POC docked [id number] 23:38:00* Test Item Value Reference Range Interpretation Comments Troponin POC (test code = 86054378) 0.00 ng/mL 0-0.08 Physician Notified Lab Interpretation (test code = 94114-7) Normal [facility] VBG POC docked [id number] 23:31:00* Test Item Value Reference Range Interpretation Comments pH, Tip POC (test code = 76029689) 7.46 7.33-7.43 H HCO3, Tip POC (test code = 80064224) 26 mmol/L 22-26 TCO2 POC (test code = 95716727) 27 mmol/L 21-32 PO2, Venous POC (BKR) (test code = 36744075) 28 50- 75 mm Hg L pCO2,Tip POC (test code = 21629296) 36.9 38- 50 mmHg L Base Excess Tip POC (test code = 94023629) 2 mmol/L Sample Type (test code = 52451656) IVEN --- Lactic Acid POC (test code = 54975076) 2.93 mmol/L 0.4-2 H % Sat, Tip POC (test code = 70431811) 57 % Lab Interpretation (test code = 11412-9) Abnormal [facility] BMP POC docked [id number] 22:51:00* Test Item Value Reference Range Interpretation Comments Sodium POC (test code = 24197870) 139 mmol/L 136-145 Potassium POC (test code = 86018443) 3.5 mmol/L 3.5-5.1 Chloride POC (test code = 54378426) 99 mmol/L 98-107 TCO2 POC (test code = 19685173) 25 mmol/L 21-32 Urea Nitrogen POC (test code = 21047231) 9 mg/dL 7-18 Creatinine POC (test code = 41435311) 0.5 mg/dL 0.6-1.3 L Glucose POC (test code = 64872570) 307 mg/dL 74-106 H Ionized Calcium POC (test code = 47621591) 1.10 mmol/L 1.15-1.29 L GFR, Estimated (test code = 33471882) >90 >=90 mL/min/1.73 m2 Hemoglobin POC (test code = 41022413) 13.3 g/dL 12-16 Physician Notified Hematocrit POC (test code = 80781078) 39.0 % 37-47 Lab Interpretation (test code = 34574-5) Abnormal [facility] HospitalH[facility]oglobin [id number] 13:40:00* Test Item Value Reference Range Interpretation Comments Hemoglobin A1c (test code = 4548-4) 6.7 % 4.3-6.1 H Estimated Average Glucose (test code = 22328901) 146 mg/dL 70-11 0 H Lab Interpretation (test code = 75606-2) Abnormal [facility] [id number] 15:16:18Bebeto Brown MD 01/09/2019 4:08 PMDiabetic Foot Exam was performed at 01/09/2019 3:41 PM. Right foot sensation is normal, right foot pulses are normal, right foot appearance is abnormal (thickended toe nails). Left foot sensation is normal, left foot pulses are normal, left foot appearance is abnormal (thickended toe nails). [facility]
[2020-01-08] MEDS ORDERED: LACTULOSE SYRUP 20 GM/30 ML UDC PO PRN (16:30)
--- NOTE | 2020-01-08 17:22 | NUR ---
recvd patient from ER, Alert , sleepy , assisted her to bed, bed alarm ON. call light in reach, Notified SALES AND MANAGEMENT TRAINEE of Dr JACKSON .
[2020-01-08 17:42] VITALS: BP 131/61
[2020-01-08] MEDS ORDERED: LACTULOSE SYRUP 20 GM/30 ML UDC PO SCH (19:15)
--- NOTE | 2020-01-08 19:25 | NUR ---
BED ALARM SOUNDING. FOUND PATIENT AT BEDSIDE. ASSISTED TO BATHROOM AND BACK TO BED. EDUCATED TO NOTIFY NURSE BEFORE GETTING UP. VERBALIZES UNDERSTANDING. BED LOCKED AND IN LOW POSITION. SR UPX2. CALL LIGHT WITHIN REACH. BED ALARM ACTIVATED.
[2020-01-08 20:00] VITALS: BP 121/76
[2020-01-08 20:40] VITALS: BP 121/76
--- NOTE | 2020-01-08 21:51 | NUR ---
SPOKE TO LAURENCE MARTINEZ. NEW ORDERS RECEIVED.
[2020-01-08] MEDS ORDERED: TRAMADOL HCL 50 MG TAB PO ONE (22:00)
--- NOTE | 2020-01-08 22:34 | NUR ---
SPOKE TO LAURENCE MARTINEZ REGARDING PATIENT REPORTS TRAMADOL NOT HELPING PAIN. PATIENT TRANSPORT ORDERLY ORDER FOR IV MORPHINE 1MG ONCE. Addendum: 01/08/20 at 2252 by Rosario Collado RN PLEASE INCLUDE PATIENT REPORTS "I WILL LEAVE IF I DO NOT GET ANYTHING STRONGER FOR PAIN." PATIENT TRANSPORT ORDERLY NOTIFIED OF PATIENT STATEMENT.
--- NOTE | 2020-01-08 22:41 | NUR ---
EDUCATED PATIENT ON MORPHINE. EDUCATED PATIENT IF MORPHINE GIVEN, PATIENT SHOULD STAY IN HOSPITAL. PATIENT VERBALIZES UNDERSTANDING. PATIENT REPORTS "I UNDERSTAND. I WILL TRY THE MORPHINE."
[2020-01-08 23:00] VITALS: BP 151/104
[2020-01-08] MEDS ORDERED: MORPHINE SULFATE 2 MG/ML SYR 1ML IV ONE ×2 (23:00→23:15)
--- NOTE | 2020-01-08 23:03 | NUR ---
SPOKE TO PHARMACY REGARDING MORPHINE NOT IN PYXIS LIST. INSTRUCTED TO "CHECK AGAIN IN A COUPLE OF MINUTES."
--- NOTE | 2020-01-08 23:15 | NUR ---
REFUSES VITAL SIGN MEASUREMENTS
--- NOTE | 2020-01-09 00:43 | NUR ---
SPOKE TO DYE REEL OPERATOR. AWARE PATIENT WILL LEAVE AMA.
--- NOTE | 2020-01-09 00:47 | NUR ---
SPOKE TO CHARGE NURSE. CHARGE NURSE AWARE LEAVING AMA.
--- NOTE | 2020-01-09 01:15 | NUR ---
PATIENT LEAVES AMA. SCRAPER TENDER AWARE. CHARGE NURSE AND DATA ANALYTICS CHIEF SCIENTIST AWARE. PATIENT AAOX3. IV D/C CATHETER TIP INTACT. CDI DRESSING APPLIED. ESCORTED BY RN VIA WHEELCHAIR TO PRIVATE AUTO.
== END 2020-01-09 01:17 | disposition home or self-care (01) | DRG 443 ==
LOC: ER 14:00 → ERHOLD 15:52 → MED/SURG 18:02
PROVIDERS: ADMIT Internal Medicine; ATTEND Internal Medicine
DX: K72.90 Hepatic failure, unspecified without coma (principal)
CPT/HCPCS: 36415; 74176; 80053; 82140; 82948; 83690; 85025; 93005; 99284; J1200; J1630; J2270; J7050

== ENCOUNTER → 2020-01-15 | Outpatient (CLI) | payer MEDICARE ==
[~2020-01-15] MED LIST changes: +ALBUMIN 25% 12.5GM 50ML 150 ML IV ONE; +ALBUMIN 25% 12.5GM 50ML 50 ML IV ONE
[2020-01-15 16:39] LABS: BODY FLUID APPEARANCE SL.CLOUDY; BODY FLUID COLOR YELLOW; BODY FLUID TYPE PERITONEAL
[2020-01-15 17:33] LABS: RBC,BODY FLUID 100 cells/uL; WBC,BODY FLUID 60 cells/uL
[2020-01-15 21:53] LABS: LYMPHOCYTES,BODY FLUID 13 %; MONO/MACROPHG,BODY FLUID 82 %; NEUTROPHILS,BODY FLUID 3 %; OTHER CELLS,BODY FLUID 2 %
== END ==
LOC: US 15:21
PROVIDERS: ATTEND Legal Medicine
DX: R18.8 Other ascites (principal)
CPT/HCPCS: 36415; 49083; 89051; C1729

== ENCOUNTER → 2020-01-27 | Outpatient (CLI) | payer MEDICARE ==
[2020-01-27 15:01] LABS: BODY FLUID APPEARANCE CLEAR; BODY FLUID COLOR YELLOW; BODY FLUID TYPE PERITONEAL
[2020-01-27 15:02] LABS: RBC,BODY FLUID 23 cells/uL; WBC,BODY FLUID 40 cells/uL
[2020-01-27 15:25] LABS: LYMPHOCYTES,BODY FLUID 51 %; MONO/MACROPHG,BODY FLUID 32 %; NEUTROPHILS,BODY FLUID 17 %
--- NOTE | 2020-01-27 16:04 | Diagnostic Imaging Report ---
PROCEDURE: Ultrasound-guided paracentesis Procedural Personnel Attending physician(s): Deven Grande MD Pre-procedure diagnosis: Ascites Post-procedure diagnosis: Unchanged Indication: Ascites with pain or pressure symptoms Additional clinical history: None Complications: No immediate complications. IMPRESSION: Ultrasound-guided paracentesis with drainage of 7200 mL of serous fluid. Plan: Resume care by clinical team. PROCEDURE SUMMARY: - Limited abdominal ultrasound - Ultrasound-guided paracentesis - Additional procedure(s): None PROCEDURE DETAILS: Pre-procedure Consent: Informed consent for the procedure including risks, benefits and alternatives was obtained and time-out was performed prior to the procedure. Preparation: The site was prepared and draped using maximal sterile barrier technique including cutaneous antisepsis. Anesthesia/sedation Level of anesthesia/sedation: None Initial abdominal ultrasound Initial abdominal ultrasound was performed. Findings: Large ascites. A safe window for paracentesis was identified. Paracentesis Local anesthesia was administered. The peritoneal cavity was accessed and fluid return confirmed position. Ascites was drained. The catheter was then removed, and a sterile bandage was applied. Paracentesis access technique: Real-time ultrasound guidance. Catheter placed: 5Fr Yueh Post-drainage ultrasound: No visible ascites Additional Details Additional description of procedure: None Equipment details: None Specimens removed: Abdominal fluid Estimated blood loss (mL): Minimal (<10cc) Standardized report: [email or web address] Attestation Signer name: Deven Grande MD I attest that I was present for the entire procedure. I reviewed the stored images and agree with the report as written. Signed by: Deven Grande MD on 01/27/2020 4:00 PM
== END ==
LOC: US 13:05
PROVIDERS: ATTEND Legal Medicine
DX: R18.8 Other ascites (principal)
CPT/HCPCS: 36415; 49083; 88112; 88305; 89051

== ENCOUNTER → 2020-02-02 | Outpatient (CLI) | payer MEDICARE ==
[~2020-02-02] MED LIST changes: -ALBUMIN 25% 12.5GM 50ML 50 ML IV ONE
[2020-02-02 14:16] LABS: BASOPHILS % 0.3 % (0.0-1.0); EOSINOPHILS # (AUTO) 0.1 (0.0-0.4); EOSINOPHILS % 1.5 % (0.0-6.0); HEMATOCRIT 31.8 % (34.2-44.1); HEMOGLOBIN 10.3 g/dL (12.0-16.0); LYMPHOCYTES # (AUTO) 0.8 (1.0-3.2); LYMPHOCYTES % 11.3 % (18.0-39.1); MEAN CORPUSCULAR HGB CONC 32.4 g/dL (31-35); MEAN CORPUSCULAR VOLUME 95.8 fL (81-99); MONOCYTES # (AUTO) 0.7 (0.2-0.8); MONOCYTES % 10.4 % (4.4-11.3); NEUTROPHILS # (AUTO) 5.2 (2.1-6.9); NEUTROPHILS % 76.1 % (38.7-80.0); PLATELET COUNT 81 x10e3/uL (140-360); RED BLOOD COUNT 3.32 x10e6/uL (3.6-5.1); RED CELL DISTRIBUTION WIDTH 15.4 % (11.7-14.4)
[2020-02-02 14:24] LABS: INR 1.39; PROTHROMBIN TIME 17.8 seconds (11.9-14.5)
[2020-02-02 14:25] LABS: PARTIAL THROMBOPLASTIN TIME 34.5 seconds (23.8-35.5)
--- NOTE | 2020-02-02 15:35 | Diagnostic Imaging Report ---
HISTORY : Symptomatic ascites. Technique/findings: Informed written consent was obtained. Discussion of risks, benefits, and alternatives were made with the patient. The patient expressed understanding and agreed to proceed. A universal timeout was performed prior to starting the procedure. Initial ultrasound images demonstrate large volume of ascites. A pocket of fluid was identified in the left lower quadrant of the abdomen. This area was marked. The area was prepped and draped in the usual sterile fashion. 1% lidocaine was applied to the skin and deep soft tissues. Color ultrasound was used to assess for any vessels within the vicinity of the planned trajectory of the one-step, a image was saved. A 5 Polish one-step catheter was inserted and removed from the peritoneal space and approximately 6 liters of clear yellow ascitic fluid was aspirated from the abdomen. Specimens were collected for the lab. There were no immediate complications. Impression: Successful ultrasound guided paracentesis with aspiration of 6 liters of fluid. Signed by: Laith Mcneil MD on 02/02/2020 3:32 PM
[2020-02-02 16:13] LABS: BODY FLUID APPEARANCE SL.CLOUDY; BODY FLUID COLOR YELLOW; BODY FLUID TYPE PERITONEAL
[2020-02-02 16:14] LABS: RBC,BODY FLUID 44 cells/uL; WBC,BODY FLUID 17 cells/uL
[2020-02-02 16:33] LABS: LYMPHOCYTES,BODY FLUID 39 %; MONO/MACROPHG,BODY FLUID 35 %; NEUTROPHILS,BODY FLUID 12 %; OTHER CELLS,BODY FLUID 14 %
== END ==
LOC: US 13:43
PROVIDERS: ATTEND Legal Medicine
DX: R18.8 Other ascites (principal)
CPT/HCPCS: 36415; 49083; 85025; 85610; 85730; 89051

== ENCOUNTER → 2020-02-11 | Outpatient (CLI) | payer MEDICARE ==
[~2020-02-11] MED LIST changes: +ALBUMIN 25% 12.5GM 50ML 0 ML IV ONE
[2020-02-11 15:57] LABS: BODY FLUID APPEARANCE SL.CLOUDY; BODY FLUID COLOR YELLOW; BODY FLUID TYPE PERITONEAL; RBC,BODY FLUID 112 cells/uL; WBC,BODY FLUID 67 cells/uL
--- NOTE | 2020-02-11 16:00 | Diagnostic Imaging Report ---
HISTORY : Symptomatic ascites. Technique/findings: Informed written consent was obtained. Discussion of risks, benefits, and alternatives were made with the patient. The patient expressed understanding and agreed to proceed. A universal timeout was performed prior to starting the procedure. Initial ultrasound images demonstrate moderate volume of ascites. A pocket of fluid was identified in the left lower quadrant of the abdomen. This area was marked. The area was prepped and draped in the usual sterile fashion. 1% lidocaine was applied to the skin and deep soft tissues. Color ultrasound was used to assess for any vessels within the vicinity of the planned trajectory of the one-step, a image was saved. A 5 [place] one-step catheter was inserted and removed from the peritoneal space and approximately 6 liters of yellow ascitic fluid was aspirated from the abdomen. Specimens were collected for the lab. There were no immediate complications. Impression: Successful ultrasound guided paracentesis with aspiration of 6 liters of fluid. Signed by: Laith Mcneil MD on 02/11/2020 3:57 PM
[2020-02-11 16:28] LABS: LYMPHOCYTES,BODY FLUID 50 %; MONO/MACROPHG,BODY FLUID 38 %; NEUTROPHILS,BODY FLUID 12 %
== END ==
LOC: US 14:31
PROVIDERS: ATTEND Legal Medicine
DX: R18.8 Other ascites (principal)
CPT/HCPCS: 36415; 49083; 89051

== ENCOUNTER → 2020-02-17 | Outpatient (CLI) | payer MEDICARE ==
[~2020-02-17] MED LIST changes: -ALBUMIN 25% 12.5GM 50ML 0 ML IV ONE
[2020-02-17 16:14] LABS: BODY FLUID APPEARANCE SL.CLOUDY; BODY FLUID COLOR YELLOW; BODY FLUID TYPE PERITONEAL
[2020-02-17 16:15] LABS: RBC,BODY FLUID 192 cells/uL; WBC,BODY FLUID 73 cells/uL
[2020-02-17 16:33] LABS: LYMPHOCYTES,BODY FLUID 24 %; MONO/MACROPHG,BODY FLUID 60 %; NEUTROPHILS,BODY FLUID 16 %
== END ==
LOC: US 13:38
PROVIDERS: ATTEND Legal Medicine
DX: R18.8 Other ascites (principal)
CPT/HCPCS: 36415; 49083; 89051

== ENCOUNTER → 2020-02-25 | Outpatient (CLI) | payer MEDICARE ==
[~2020-02-25] MED LIST changes: +ALBUMIN 25% 12.5GM 50ML 50 ML IV ONE
--- NOTE | 2020-02-25 15:20 | Diagnostic Imaging Report ---
Procedure: Ultrasound-guided paracentesis four slide operator: Tripp Goldman M.D. Pre-operative diagnosis: Ascites Post-operative diagnosis: Ascites Conscious Sedation: None. The patient's heart rate and pulse oximetry were continuously monitored by the IR nurse. Additional Medications: Lidocaine 1% for local anesthesia Estimated blood loss: Less than 1 cc. Specimen: 6650 cc of clear yellow fluid Implants: None TECHNIQUE/FINDINGS: Informed consent was obtained from the patient and documented in the medical record. The patient was placed in the supine position. Initial ultrasound demonstrated ascites. The left lower abdomen was prepped and draped in standard sterile fashion. 1% lidocaine was infiltrated into the skin and subcutaneous tissues for local anesthesia. Then under continuous sonographic guidance, a 5 Fr catheter was advanced into the peritoneal space. The catheter was connected to vacuum bottle with subsequent evacuation of 6650 cc of serous fluid. The catheter was removed and sterile dressing was applied. Sample was sent to the lab. The patient tolerated the procedure well. IMPRESSION: Successful ultrasound-guided paracentesis. Signed by: Tripp Goldman on 02/25/2020 3:17 PM
[2020-02-25 17:45] LABS: BODY FLUID APPEARANCE SL.CLOUDY; BODY FLUID COLOR YELLOW; BODY FLUID TYPE PERITONEAL
[2020-02-25 17:47] LABS: RBC,BODY FLUID 184 cells/uL; WBC,BODY FLUID 85 cells/uL
[2020-02-25 17:52] LABS: LYMPHOCYTES,BODY FLUID 12 %; MONO/MACROPHG,BODY FLUID 62 %; NEUTROPHILS,BODY FLUID 15 %; OTHER CELLS,BODY FLUID 11 %
== END ==
LOC: US 13:26
PROVIDERS: ATTEND Legal Medicine
DX: R18.8 Other ascites (principal)
CPT/HCPCS: 36415; 49083; 89051

== ENCOUNTER → 2020-03-08 | Outpatient (CLI) | payer MEDICARE ==
[~2020-03-08] MED LIST changes: -ALBUMIN 25% 12.5GM 50ML 150 ML IV ONE; +ALBUMIN 25% 12.5GM 50ML 200 ML IV ONE; -ALBUMIN 25% 12.5GM 50ML 50 ML IV ONE
[2020-03-08 13:31] LABS: BASOPHILS % 0.2 % (0.0-1.0); EOSINOPHILS % 0.5 % (0.0-6.0); HEMATOCRIT 31.8 % (34.2-44.1); HEMOGLOBIN 10.2 g/dL (12.0-16.0); LYMPHOCYTES # (AUTO) 0.4 (1.0-3.2); LYMPHOCYTES % 9.5 % (18.0-39.1); MEAN CORPUSCULAR HEMOGLOBIN 30.4 pg (28-32); MEAN CORPUSCULAR HGB CONC 32.1 g/dL (31-35); MEAN CORPUSCULAR VOLUME 94.9 fL (81-99); MONOCYTES # (AUTO) 0.4 (0.2-0.8); MONOCYTES % 10.7 % (4.4-11.3); NEUTROPHILS # (AUTO) 3.2 (2.1-6.9); NEUTROPHILS % 78.9 % (38.7-80.0); PLATELET COUNT 92 x10e3/uL (140-360); RED BLOOD COUNT 3.35 x10e6/uL (3.6-5.1); RED CELL DISTRIBUTION WIDTH 16.2 % (11.7-14.4)
[2020-03-08 13:43] LABS: INR 1.31; PROTHROMBIN TIME 16.9 seconds (11.9-14.5)
[2020-03-08 13:44] LABS: PARTIAL THROMBOPLASTIN TIME 35.4 seconds (23.8-35.5)
[2020-03-08 15:57] LABS: RBC,BODY FLUID 124 cells/uL; WBC,BODY FLUID 65 cells/uL
[2020-03-08 16:08] LABS: BODY FLUID APPEARANCE SL.CLOUDY; BODY FLUID COLOR YELLOW; BODY FLUID TYPE PERITONEAL
[2020-03-08 16:57] LABS: EOSINOPHILS,BODY FLUID 1 %; LYMPHOCYTES,BODY FLUID 13 %; NEUTROPHILS,BODY FLUID 14 %; OTHER CELLS,BODY FLUID 72 %
== END ==
LOC: US 13:02
PROVIDERS: ATTEND Legal Medicine
DX: R18.8 Other ascites (principal)
CPT/HCPCS: 36415; 49083; 82040; 85025; 85610; 85730; 89051

== ENCOUNTER → 2020-03-15 | Outpatient (CLI) | payer MEDICARE ==
[2020-03-15 15:35] LABS: RBC,BODY FLUID 116 cells/uL; WBC,BODY FLUID 108 cells/uL
[2020-03-15 16:12] LABS: LYMPHOCYTES,BODY FLUID 50 %; MONO/MACROPHG,BODY FLUID 38 %; NEUTROPHILS,BODY FLUID 2 %; OTHER CELLS,BODY FLUID 10 %
[2020-03-15 16:20] LABS: BODY FLUID APPEARANCE SL.CLOUDY; BODY FLUID COLOR YELLOW; BODY FLUID TYPE PERITONEAL
== END ==
LOC: US 13:12
PROVIDERS: ATTEND Legal Medicine
DX: R18.8 Other ascites (principal)
CPT/HCPCS: 36415; 49083; 89051

== ENCOUNTER → 2020-03-22 | Outpatient (CLI) | payer MEDICARE ==
[2020-03-22 14:31] LABS: BODY FLUID APPEARANCE SL.CLOUDY; BODY FLUID COLOR YELLOW; BODY FLUID TYPE PERITONEAL
[2020-03-22 15:55] LABS: RBC,BODY FLUID 175 cells/uL; WBC,BODY FLUID 60 cells/uL
[2020-03-22 17:20] LABS: LYMPHOCYTES,BODY FLUID 27 %; MONO/MACROPHG,BODY FLUID 39 %; NEUTROPHILS,BODY FLUID 2 %; OTHER CELLS,BODY FLUID 32 %
== END ==
LOC: US 12:47
PROVIDERS: ATTEND Internal Medicine Gastroenterology
DX: R18.8 Other ascites (principal)
CPT/HCPCS: 36415; 49083; 89051

== ENCOUNTER → 2020-04-25 | Outpatient (CLI) | payer MEDICARE ==
[2020-04-25 13:15] LABS: BASOPHILS % 0.2 % (0.0-1.0); EOSINOPHILS # (AUTO) 0.1 (0.0-0.4); EOSINOPHILS % 1.2 % (0.0-6.0); HEMATOCRIT 37.4 % (34.2-44.1); HEMOGLOBIN 11.8 g/dL (12.0-16.0); LYMPHOCYTES # (AUTO) 0.6 (1.0-3.2); LYMPHOCYTES % 11.5 % (18.0-39.1); MEAN CORPUSCULAR HEMOGLOBIN 30.1 pg (28-32); MEAN CORPUSCULAR HGB CONC 31.6 g/dL (31-35); MEAN CORPUSCULAR VOLUME 95.4 fL (81-99); MONOCYTES # (AUTO) 0.5 (0.2-0.8); MONOCYTES % 9.7 % (4.4-11.3); NEUTROPHILS # (AUTO) 3.8 (2.1-6.9); NEUTROPHILS % 76.8 % (38.7-80.0); PLATELET COUNT 83 x10e3/uL (140-360); RED BLOOD COUNT 3.92 x10e6/uL (3.6-5.1); RED CELL DISTRIBUTION WIDTH 15.1 % (11.7-14.4)
[2020-04-25 13:37] LABS: INR 1.52; PARTIAL THROMBOPLASTIN TIME 34.8 seconds (23.8-35.5); PROTHROMBIN TIME 19.4 seconds (11.9-14.5)
[2020-04-25 16:12] LABS: BODY FLUID APPEARANCE SL.CLOUDY; BODY FLUID COLOR YELLOW; BODY FLUID TYPE PERITONEAL
[2020-04-25 16:14] LABS: RBC,BODY FLUID 2184 cells/uL; WBC,BODY FLUID 377 cells/uL
[2020-04-25 17:04] LABS: LYMPHOCYTES,BODY FLUID 54 %; MONO/MACROPHG,BODY FLUID 20 %; NEUTROPHILS,BODY FLUID 6 %; OTHER CELLS,BODY FLUID 20 %
== END ==
LOC: US 12:28
PROVIDERS: ATTEND Internal Medicine Gastroenterology
DX: R18.8 Other ascites (principal)
CPT/HCPCS: 36415; 49083; 85025; 85610; 85730; 89051; C1729

== ENCOUNTER → 2020-05-06 | Outpatient (CLI) | payer MEDICARE ==
[~2020-05-06] MED LIST changes: +ALBUMIN 25% 12.5GM 50ML 0 ML IV ONE; -ALBUMIN 25% 12.5GM 50ML 200 ML IV ONE
== END ==
LOC: US 13:03
PROVIDERS: ATTEND Internal Medicine Gastroenterology
DX: R18.8 Other ascites (principal)
CPT/HCPCS: 76705

== ENCOUNTER → 2020-06-17 | Outpatient (CLI) | payer MEDICARE ==
[~2020-06-17] MED LIST changes: -ALBUMIN 25% 12.5GM 50ML 0 ML IV ONE; +ALBUMIN 25% 12.5GM 50ML 200 ML IV ONE
[2020-06-17 13:58] LABS: BASOPHILS % 0.2 % (0.0-1.0); EOSINOPHILS % 0.9 % (0.0-6.0); HEMATOCRIT 34.8 % (34.2-44.1); HEMOGLOBIN 11.2 g/dL (12.0-16.0); LYMPHOCYTES # (AUTO) 0.4 (1.0-3.2); LYMPHOCYTES % 8.5 % (18.0-39.1); MEAN CORPUSCULAR HEMOGLOBIN 28.6 pg (28-32); MEAN CORPUSCULAR HGB CONC 32.2 g/dL (31-35); MONOCYTES # (AUTO) 0.4 (0.2-0.8); MONOCYTES % 7.8 % (4.4-11.3); NEUTROPHILS # (AUTO) 3.8 (2.1-6.9); NEUTROPHILS % 82.4 % (38.7-80.0); PLATELET COUNT 91 x10e3/uL (140-360); RED BLOOD COUNT 3.91 x10e6/uL (3.6-5.1); RED CELL DISTRIBUTION WIDTH 16.2 % (11.7-14.4)
[2020-06-17 14:09] LABS: INR 1.15; PROTHROMBIN TIME 15.5 seconds (11.9-14.5)
[2020-06-17 14:10] LABS: PARTIAL THROMBOPLASTIN TIME 32.7 seconds (23.8-35.5)
[2020-06-17 16:13] LABS: BODY FLUID APPEARANCE CLEAR; BODY FLUID COLOR YELLOW; BODY FLUID TYPE PERITONEAL
[2020-06-17 16:14] LABS: RBC,BODY FLUID < 200 cells/uL; WBC,BODY FLUID 68 cells/uL
[2020-06-17 20:34] LABS: LYMPHOCYTES,BODY FLUID 36 %; MONO/MACROPHG,BODY FLUID 46 %; NEUTROPHILS,BODY FLUID 5 %; OTHER CELLS,BODY FLUID 13 %
== END ==
LOC: US 13:27
PROVIDERS: ATTEND Internal Medicine Gastroenterology
DX: R18.8 Other ascites (principal)
CPT/HCPCS: 36415; 49083; 85025; 85610; 85730; 89051

== ENCOUNTER → 2020-07-27 | Outpatient (CLI) | payer MEDICARE ==
[~2020-07-27] MED LIST changes: +ALBUMIN 25% 12.5GM 50ML 150 ML IV ONE; -ALBUMIN 25% 12.5GM 50ML 200 ML IV ONE; +ALBUMIN 25% 12.5GM 50ML 50 ML IV ONE
[2020-07-27 11:15] LABS: BASOPHILS % 0.2 % (0.0-1.0); EOSINOPHILS # (AUTO) 0.1 (0.0-0.4); EOSINOPHILS % 0.3 % (0.0-6.0); HEMATOCRIT 37.3 % (34.2-44.1); HEMOGLOBIN 12.3 g/dL (12.0-16.0); LYMPHOCYTES # (AUTO) 0.5 (1.0-3.2); LYMPHOCYTES % 3.4 % (18.0-39.1); MEAN CORPUSCULAR HEMOGLOBIN 29.1 pg (28-32); MEAN CORPUSCULAR VOLUME 88.2 fL (81-99); MONOCYTES # (AUTO) 0.5 (0.2-0.8); MONOCYTES % 3.2 % (4.4-11.3); NEUTROPHILS # (AUTO) 13.2 (2.1-6.9); NEUTROPHILS % 92.2 % (38.7-80.0); PLATELET COUNT 123 x10e3/uL (140-360); RED BLOOD COUNT 4.23 x10e6/uL (3.6-5.1)
[2020-07-27 11:35] LABS: INR 1.19; PROTHROMBIN TIME 15.8 seconds (11.9-14.5)
[2020-07-27 11:36] LABS: PARTIAL THROMBOPLASTIN TIME 35.5 seconds (23.8-35.5)
[2020-07-27 14:37] LABS: BODY FLUID APPEARANCE SL.CLOUDY; BODY FLUID COLOR YELLOW; BODY FLUID TYPE PERITONEAL; RBC,BODY FLUID 2700 cells/uL; WBC,BODY FLUID 84 cells/uL
[2020-07-27 15:15] LABS: LYMPHOCYTES,BODY FLUID 3 %; MONO/MACROPHG,BODY FLUID 3 %; NEUTROPHILS,BODY FLUID 92 %
[2020-07-27 15:16] LABS: OTHER CELLS,BODY FLUID 2 %
== END ==
LOC: US 10:50
PROVIDERS: ATTEND Legal Medicine
DX: R18.8 Other ascites (principal)
CPT/HCPCS: 36415; 49083; 85025; 85610; 85730; 87070; 87205; 88112; 88305; 89051; C1729

== ENCOUNTER 2020-08-05 02:41 | Emergency (ER) | payer MEDICARE ==
[~2020-08-05] VITALS: Ht 149.9 cm; Wt 45.8 kg
[~2020-08-05 02:41] MED LIST changes: -ALBUMIN 25% 12.5GM 50ML 150 ML IV ONE; -ALBUMIN 25% 12.5GM 50ML 50 ML IV ONE
[2020-08-05] MEDS ORDERED: CEFEPIME HCL 1 GM VIAL IV SCH (02:45)
[2020-08-05] MEDS ORDERED: SODIUM CHLORIDE 0.9% 1000ML 1,000 ML IV STA (02:45)
[2020-08-05] MEDS ORDERED: CEFEPIME HCL 1GM 1 GM in SODIUM CHLORIDE 0.9% 50ML 50 ML IV ONE (03:00)
[2020-08-05 03:16] LABS: BASOPHILS # (AUTO) 0.1 (0.0-0.1); BASOPHILS % 0.2 % (0.0-1.0); EOSINOPHILS # (AUTO) 0.1 (0.0-0.4); EOSINOPHILS % 0.2 % (0.0-6.0); LYMPHOCYTES # (AUTO) 4.3 (1.0-3.2); LYMPHOCYTES % 11.8 % (18.0-39.1); MEAN CORPUSCULAR HEMOGLOBIN 29.9 pg (28-32); MEAN CORPUSCULAR HGB CONC 27.8 g/dL (31-35); MEAN CORPUSCULAR VOLUME 107.5 fL (81-99); MONOCYTES # (AUTO) 2.4 (0.2-0.8); MONOCYTES % 6.4 % (4.4-11.3); NEUTROPHILS # (AUTO) 24.8 (2.1-6.9); NEUTROPHILS % 67.9 % (38.7-80.0); PLATELET COUNT 147 x10e3/uL (140-360); RED BLOOD COUNT 2.14 x10e6/uL (3.6-5.1); RED CELL DISTRIBUTION WIDTH 20.7 % (11.7-14.4)
[2020-08-05] MEDS ORDERED: NOREPINEPHRINE 8 MG/D5W 250 ML 250 ML ONE (03:16)
[2020-08-05 03:20] LABS: HEMOGLOBIN 6.4 g/dL (12.0-16.0)
[2020-08-05 03:38] LABS: ALBUMIN 1.9 g/dL (3.5-5.0); ALBUMIN/GLOBULIN RATIO 0.5 (0.8-2.0); ANION GAP 27.1 mmol/L (8-16); CALCIUM 7.9 mg/dL (8.4-10.2); CREATININE, SERUM 1.36 mg/dL (0.57-1.11); POTASSIUM 5.1 mmol/L (3.5-5.1)
[2020-08-05 03:43] LABS: CREATINE KINASE MB 0.6 ng/mL (0-5.0)
[2020-08-05] MEDS ORDERED: EPINEPHRINE HCL SYRINGE ONE (12:18)
[2020-08-05] MEDS ORDERED: ETOMIDATE 2 MG/ML 10 ML INJ IV ONE (12:19)
[2020-08-05] MEDS ORDERED: SUCCINYLCHOLINE CHLORIDE 20 MG/ML 10ML VIAL ONE (12:19)
== END 2020-08-05 06:35 | disposition expired ==
LOC: ER 02:45
DX: I46.9 Cardiac arrest, cause unspecified (principal); K72.90 Hepatic failure, unspecified without coma; E11.65 Type 2 diabetes mellitus with hyperglycemia
CPT/HCPCS: 31500 ×2; 36415; 80053; 82550; 82553; 82948; 83605; 83690; 84484; 85025; 87040; 87071; 87205; 92950; 99284; J7030; 94002; J0171; J0330